=== PATIENT | female | born 1990 | race Caucasian/White ===

== ENCOUNTER 2021-12-10 08:15 | Outpatient (CLI) | payer MEDICARE, SELFPAY ==
--- NOTE | 2021-12-10 08:15 | CRLHL7_ITS ---
For Patients: As a result of the Century Cures Act, medical imaging exams and procedure reports are released immediately into your electronic medical record. You may view this report before your referring provider. If you have questions, please contact your health care provider. INDICATION: Globus sensation. TECHNIQUE: Modified barium swallow COMPARISON: None FINDINGS/IMPRESSION: No episodes of penetration or aspiration. No significant findings. Please see speech pathologist`s report for details. Fluoroscopy time is 1 minutes 16 seconds. Dictated by Cirilo Hancock MD @ 12/10/2021 9:03:51 AM (Electronically Signed)
== END 2021-12-10 08:16 | disposition home or self-care (01) ==
PROVIDERS: Visit Provider Physician Assistant
DX: R13.12 Dysphagia, oropharyngeal phase (principal); R09.89 Other specified symptoms and signs involving the circulatory and respiratory systems
CPT/HCPCS: 74230; 74240; 92611

== ENCOUNTER 2022-05-19 12:43 | Outpatient (CLI) | payer MEDICARE, SELFPAY ==
--- NOTE | 2022-05-19 13:00 | CRLHL7_ITS ---
For Patients: As a result of the Century Cures Act, medical imaging exams and procedure reports are released immediately into your electronic medical record. You may view this report before your referring provider. If you have questions, please contact your health care provider. INDICATION: Bilateral radiculopathy. TECHNIQUE: Multiplanar multisequence noncontrast MR images acquired through the lumbar spine. COMPARISON: None. FINDINGS The lumbar lordosis is preserved. Mild leftward lumbar curvature. Vertebral heights maintained. No acute fracture or spondylolisthesis. No concerning T1 hypointense marrow replacing lesions or marrow edema. Intervertebral disc height and signal intensity are preserved. Normal conus terminates at T12-L1. T12-L1 through L3-4: No spinal canal or neural foraminal narrowing. L4-5: Minimal facet arthropathy. No spinal canal or neural foraminal narrowing. L5-S1: Minimal facet arthropathy. No spinal canal or neural foraminal narrowing. IMPRESSION: 1. No spinal canal narrowing, nerve root impingement, or marrow edema. 2. Minimal facet arthropathy in the lower lumbar spine. 3. Mild leftward lumbar curvature. Dictated by Peyman Morin MD @ 05/19/2022 6:10:28 PM (Electronically Signed)
== END 2022-05-19 12:44 | disposition home or self-care (01) ==
LOC: MRI 12:54
PROVIDERS: PCP Family Medicine; Visit Provider Family Medicine
DX: M54.10 Radiculopathy, site unspecified (principal); M54.42 Lumbago with sciatica, left side; M54.41 Lumbago with sciatica, right side
CPT/HCPCS: 72148

== ENCOUNTER 2022-07-20 14:13 | Outpatient (CLI) | payer MEDICARE, SELFPAY ==
--- NOTE | 2022-07-20 14:30 | CRLHL7_ITS ---
For Patients: As a result of the Century Cures Act, medical imaging exams and procedure reports are released immediately into your electronic medical record. You may view this report before your referring provider. If you have questions, please contact your health care provider. INDICATION: Right flank and right lower quadrant pain, hematuria TECHNIQUE: CT abdomen and pelvis without contrast. COMPARISON: None FINDINGS: Lower chest: 1.7 x 1.3 cm masslike density with some surrounding linear atelectasis or scarring in the right middle lobe. There are several smaller surrounding nodules measuring up to 5 mm in size. There is also a pleural-based 1.6 x 1.6 cm nodule in the right middle lobe on image 31 series 2. Liver: Hepatic steatosis. Spleen: Unremarkable. Pancreas: Unremarkable. Gallbladder and bile ducts: Status was cholecystectomy. Adrenal glands: Unremarkable. Kidneys: No kidney or ureteral stones and no hydronephrosis. GI tract: Unremarkable. Appendix is normal. Vascular structures: Unremarkable. Lymph nodes: Unremarkable. Miscellaneous: Unremarkable. No free air or significant free fluid. Pelvic Organs: Unremarkable. Bones: Mild scoliosis. IMPRESSION: No urinary tract stones or hydronephrosis. Normal appendix. Two masslike densities in the right middle lobe with several surrounding smaller nodules. Differential considerations include but are not limited to infection or metastatic disease. Recommend comparison with any prior outside imaging. If there is no prior imaging, recommend complete chest CT for further evaluation. Status post cholecystectomy. Findings discussed with SAM Rondon at 4:23 p.m. on July 20, 2022. Please note that all CT scans at this facility use dose modulation, iterative reconstruction, and/or weight-based dosing when appropriate to reduce radiation dose to as low as reasonably achievable. Dictated by Aurelia Gilbert MD @ 07/20/2022 4:15:10 PM (Electronically Signed)
--- NOTE | 2022-07-20 18:00 | CRLHL7_ITS ---
For Patients: As a result of the Century Cures Act, medical imaging exams and procedure reports are released immediately into your electronic medical record. You may view this report before your referring provider. If you have questions, please contact your health care provider. HISTORY: Lung nodules on CT abdomen and pelvis. TECHNIQUE: CT chest with IV contrast. 75 mL Isovue-370 IV. COMPARISON: CT abdomen and pelvis same day. FINDINGS: Lungs: Central airways are patent. Clustered nodular areas of consolidation in the right middle lobe. 1.8 x 1.6 cm nodular area of consolidation in the anterior inferior right middle lobe. 3 x 1.5 cm area of consolidation in the more superior and lateral right middle lobe. Several subcentimeter nodules in the right middle lobe around the larger areas of nodular consolidation. Minimal atelectasis in the lingula. No pleural effusion or pneumothorax. Mediastinum: Thoracic aorta and main pulmonary artery are normal caliber. No pericardial effusion. Lymph nodes: No lymphadenopathy. Musculoskeletal: Unremarkable. Upper abdomen: Fatty infiltration of the liver. Cholecystectomy. IMPRESSION: 1. Clustered small areas of consolidation and pulmonary nodules in the right middle lobe. Infection or inflammatory process is favored. Malignancy is less likely. Recommend chest CT follow-up in 3 months. 2. No lymphadenopathy in the chest. Please note that all CT scans at this facility use dose modulation, iterative reconstruction, and/or weight-based dosing when appropriate to reduce radiation dose to as low as reasonably achievable. Dictated by Benny Heller MD @ 07/20/2022 8:20:35 PM (Electronically Signed)
== END 2022-07-20 14:14 | disposition home or self-care (01) ==
PROVIDERS: PCP Family Medicine; Visit Provider Student in an Organized Health Care Education/Training Program
DX: R10.31 Right lower quadrant pain (principal); R31.9 Hematuria, unspecified; R91.8 Other nonspecific abnormal finding of lung field
CPT/HCPCS: 71260; 74176; 87086; Q9967

== ENCOUNTER 2022-11-02 14:27 | Outpatient (CLI) | payer MEDICARE, SELFPAY ==
--- NOTE | 2022-11-02 15:00 | CRLHL7_ITS ---
For Patients: As a result of the Century Cures Act, medical imaging exams and procedure reports are released immediately into your electronic medical record. You may view this report before your referring provider. If you have questions, please contact your health care provider. INDICATION: Follow up pulmonary infiltrates and nodules. TECHNIQUE: Contrast enhanced chest CT. 75 cc nonionic Isovue-370 administered. COMPARISON : July 20, 2022. FINDINGS: 1.6 x 2.9 cm focus of subpleural consolidation or infiltrate within the anterior inferior right middle lobe of the lung larger when compared to the prior study when it measured 1.6 x 1.8 cm. Cephalad to this also in the right middle lobe of lung is a smaller area of consolidation or infiltrate measuring 1.4 x 1.4 cm previously measuring 3 x 1.5 cm. This is surrounded by small pulmonary nodules. This is more likely infectious or inflammatory in nature and is slightly smaller. Clear left lung. No pleural or pericardial effusions. No thoracic lymphadenopathy. No central pulmonary emboli. The included thyroid gland, trachea and mainstem bronchi, thoracic aorta, and included breasts are within normal limits. Hepatic fatty infiltration. Normal adrenal glands. No splenomegaly. Surgically absent gallbladder. Mild thoracolumbar scoliotic curvature. IMPRESSION: 1. Small interval increase in a sub pleural focus of consolidation or infiltrate anterior inferior right middle lobe of the lung measuring up to 2.9 cm previously 1.8 cm. Consider PET/CT scan for further evaluation. 2. Stable to smaller focus of infiltrate or consolidation in right middle lobe measuring 1.4 cm previously up to 3 cm. 3. Surgically absent gallbladder. Please note that all CT scans at this facility use dose modulation, iterative reconstruction, and/or weight-based dosing when appropriate to reduce radiation dose to as low as reasonably achievable. Dictated by Harpreet Day MD @ 11/02/2022 4:57:50 PM (Electronically Signed)
== END 2022-11-02 14:28 | disposition home or self-care (01) ==
PROVIDERS: PCP Family Medicine; Visit Provider Family Medicine
DX: R91.8 Other nonspecific abnormal finding of lung field (principal); R93.89 Abnormal findings on diagnostic imaging of other specified body structures
CPT/HCPCS: 71260; Q9967

== ENCOUNTER 2022-11-08 18:34 | Emergency (ER) | payer MEDICARE, SELFPAY ==
[2022-11-08 18:48] VITALS: BP 161/106; PULSE 105; RESP 20; TEMP 37.3; O2SAT 98; BMI 28.3
--- NOTE | 2022-11-08 19:14 | ED.GENADULT ---
HPI - General Adult General Chief complaint: Shortness of Breath/Dyspnea Stated complaint: trouble breathing Time Seen by Provider: 11/08/22 18:56 History of Present Illness HPI narrative: Has been having difficulties breathing for the last week. Feels like she has not been able to take in a breath. Does have a mass in her right lung that was discovered three months ago. Had a second CT on Wednesday. Mass has grown bigger. Dr Valle is her primary. Got results this week and they wanted to schedule another scan. 32-year-old woman presenting to the emergency department with concern of difficulty getting a full breath. Sometimes it feels like it is hard to breathe out as well. Does not have a history of reactive airway. Recently diagnosed with some pulmonary nodules requiring reimaging. This was an incidental finding in July but. Reimaging has just occurred and known review of records looks to have expanded a little bit. Favoring infectious or inflammatory. She does not have any fever. Vitals look good other than is tachycardic and mildly hypertensive. Tachycardia has been present for quite some time looking back on record. I observed her to be yawning regularly. She is not having any headaches. No nausea. Was contacted today by primary about results of imaging done last week. This was an IV contrasted CT of the chest. No evidence of pulmonary embolus at that time. She does admit that the symptoms not getting enough air was present for a couple of days prior to this latest imaging. Mom is present also. Further questioning by her reveals that Liv is actually able to sleep all right without these symptoms which bring her here today. Aided in this visit by rehabilitation counsellor Related Data Home Medications Medication Instructions Recorded Confirmed No Known Home Medications 07/21/22 07/21/22 Allergies Allergy/AdvReac Type Severity Reaction Status Date / Time Penicillins Allergy Mild Rash Verified 11/08/22 18:59 sulfamethoxazole Allergy Mild Rash Verified 11/08/22 18:59 [From Sulfamethoxazole-Trimethoprim] trimethoprim Allergy Mild Rash Verified 11/08/22 18:59 [From Sulfamethoxazole-Trimethoprim] latex Allergy Unknown uncertain, Verified 11/08/22 18:59 had a reaction to a balloon once, not since Review of Systems Status of ROS: Reports: 6 or more systems reviewed and unremarkable except as noted in History and below [facility] Medical History Hx of hematuria ?Z87.448 - Personal history of other diseases of urinary system (ICD-10) Scoliosis of lumbar spine ?M41.9 - Scoliosis, unspecified (ICD-10) Positive PAU (antinuclear antibody) ?R76.8 - Other specified abnormal immunological findings in serum (ICD-10) Polycystic ovary syndrome ?E28.2 - Polycystic ovarian syndrome (ICD-10) History of fatty infiltration of liver ?Z87.19 - Personal history of other diseases of the digestive system (ICD-10) Environmental allergies ?Z91.09 - Other allergy status, other than to drugs and biological substances (ICD-10) Essential hypertension ?I10 - Essential (primary) hypertension (ICD-10) Hearing impaired ?H91.90 - Unspecified hearing loss, unspecified ear (ICD-10) Hyperlipidemia ?E78.5 - Hyperlipidemia, unspecified (ICD-10) Asthma ?J45.909 - Unspecified asthma, uncomplicated (ICD-10) Depression ?F32.A - Depression, unspecified (ICD-10) History of delivery, currently ?O09.899 - Supervision of other high risk pregnancies, unspecified trimester (ICD-10) Surgical History Hx of cystoscopy ?Z98.890 - Other specified postprocedural states (ICD-10) History of colposcopy ?Z98.890 - Other specified postprocedural states (ICD-10) Hx of cholecystectomy ?Z90.49 - Acquired absence of other specified parts of digestive tract (ICD-10) History of bunionectomy ?Z98.890 - Other specified postprocedural states (ICD-10) Hx of hernia repair ?Z98.890 - Other specified postprocedural states (ICD-10) ?Z87.19 - Personal history of other diseases of the digestive system (ICD-10) Family History Other Cancer High blood pressure Multiple sclerosis Social History Smoking Status: Never smoker Non-prescribed substance use: denies use Exam Narrative: Exam Narrative: Pleasant. NAD. In no respiratory distress. Lungs sound to be clear. Partly rated to maybe confused effort/discoordinated effort at a little difficult to get good breath sounds for auscultation. Oropharynx is moist and symmetrical posteriorly. She is not particularly erythematous. There is the smell of cigarette smoke in the room but I believe that is because of mother. Heart in elevated rate but in a regular rhythm. Extremities are well perfused without apparent edema. Periodically and regularly will yawn. Const: Vital Signs, click to edit/add: Vital Signs - 24 hr 11/08/22 18:48 Temperature 99.2 F Pulse Rate [Pulse Oximeter] 105 H Respiratory Rate 20 Blood Pressure [Ri ght Upper Arm] 161/106 H Pulse Oximetry 98 Oxygen Delivery Me thod Room Air Course Vital Signs Vital signs: Initial Vital Signs Temperature 99.2 F 11/08/22 18:48 Temperature Source Temporal Artery Scan 11/08/22 18:48 Pulse Rate 105 H 11/08/22 18:48 Respiratory Rate 20 11/08/22 18:48 Blood Pressure 161/106 H 11/08/22 18:48 Blood Pressure Mean 124 H 11/08/22 18:48 Blood Pressure Position Sitting 11/08/22 18:48 Pulse Oximetry 98 11/08/22 18:48 Oxygen Delivery Method Room Air 11/08/22 18:48 Vital Signs Temperature 99.2 F 11/08/22 18:48 Pulse Rate 105 H 11/08/22 18:48 Respiratory Rate 20 11/08/22 18:48 Blood Pressure 161/106 H 11/08/22 18:48 Pulse Oximetry 98 11/08/22 18:48 Oxygen Delivery Method Room Air 11/08/22 18:48 Temperature 99.2 F 11/08/22 18:48 Pulse Rate 105 H 11/08/22 18:48 Respiratory Rate 20 11/08/22 18:48 Blood Pressure 161/106 H 11/08/22 18:48 Pulse Oximetry 98 11/08/22 18:48 Oxygen Delivery Method Room Air 11/08/22 18:48 Medical Decision Making MDM Narrative Medical decision making narrative: Other than the symptoms them not sure that there is anything new here. Does not appear to be any distress. Tachycardia has been persistent for some time. Name suspecting more of an air hunger situation of unclear trigger. Mom seems to indicate there is some stress trigger. I do not think there is a secondary pneumonia at the moment outside of these primary nodules. Was could be some head lesion as well though no other symptoms to suggest. Trialed a DuoNeb. This made her jittery but did not affect symptoms. Subsequently given 1 tablet of lorazepam. [place] more relaxed yet still with these symptoms. Watching Liv during our conversation it does almost seem more like a tic/psychogenic air hunger. I did call to primary to discuss. Plan is to discuss with Radiology best next test possibly including biopsy. PET scans look to have been recommended by Radiology as well. I think is safe for departure. See patient discharge plan Medical Records Medical records reviewed: Yes I reviewed the patient's medical records Discharge Plan Discharge Clinical Impression: Pulmonary nodules, Psychogenic air hunger Patient Disposition: Home w/ Parent or Adult Condition: Stable Additional Instructions: Return for increasing and persistent shortness of breath, persistent chest pain, fever. I am relieved to hear that you do not feel this way when you are sleeping apparently. I would expect to hear from Dr. Valle regarding next steps in evaluation. I think we can do the next imaging studies that you might need but I think you might benefit from a visit with pulmonology. You might limit exposures to new scents as you were describing but it's hard for me to say that is necessarily related. Prescriptions: No Action No Known Home Medications Follow Up/Referrals: Yanick Valle MD [Primary Care Provider] - Stand Alone Forms: [facility] Info Instructions
[2022-11-08] MEDS: IPRAT-ALBUT 0.5-2.5 MG/3 ML NEB 1 NEB IH (20:08)
[2022-11-08] MEDS: LORazepam 1 MG TABLET PO (20:31)
== END 2022-11-08 21:38 | disposition home or self-care (01) ==
PROVIDERS: Emergency Provider Family Medicine; PCP Family Medicine
DX: R91.1 Solitary pulmonary nodule (principal); F45.8 Other somatoform disorders
CPT/HCPCS: 94640; 99283; 99284; A9270

== ENCOUNTER 2022-12-31 14:32 | Outpatient (CLI) | payer MEDICARE, SELFPAY ==
--- NOTE | 2022-12-31 14:45 | CRLHL7_ITS ---
For Patients: As a result of the Century Cures Act, medical imaging exams and procedure reports are released immediately into your electronic medical record. You may view this report before your referring provider. If you have questions, please contact your health care provider. INDICATION: Pulmonary nodules TECHNIQUE: Following IV injection of FDG with uptake of 55 minutes, noncontrast CT scan followed by a PET scan were acquired along the length of body from the head to the upper thighs. Noncontrast CT was used for anatomic localization and photon attenuation correction of the PET-CT scan. - Blood glucose level: 83. - FDG dose (mCi): 12.38 . COMPARISON: CT chest dated 11/02/2022 and 07/20/2022. FINDINGS: Head/Neck: No abnormal radiotracer uptake. - Chest: Background mediastinal blood pool with SUV mean of 2.0. There are several moderately to markedly hypermetabolic masslike opacities/clustered nodules in the right middle lobe, for example (image 102) SUV max 7.0. A 2nd masslike opacity in the right middle lobe (image 109) measures SUV max 5.6. Xfbz-iz-lhyslrxuuk hypermetabolic subcarinal lymph node (image 91) SUV max 3.4. No hypermetabolic hilar lymphadenopathy. - Background liver parenchyma with SUV mean of 2.9. No abnormal radiotracer uptake. - Musculoskeletal: No abnormal radiotracer uptake. - CT findings: Cholecystectomy. Hepatic steatosis. IMPRESSION : 1. Moderately to markedly hypermetabolic clustered nodules and masslike consolidation in the right middle lobe. Differential remains infection versus malignancy. Although infection is statistically more likely in a patient of this age, malignancy cannot be excluded. 2. Mild to moderate uptake within a subcarinal lymph node. 3. No hypermetabolic lesions below the diaphragm. Dictated by Dinesh Richter MD @ 01/10/2023 6:39:41 AM (Electronically Signed)
== END 2022-12-31 14:33 | disposition home or self-care (01) ==
PROVIDERS: PCP Family Medicine; Visit Provider Internal Medicine Pulmonary Disease
DX: R09.89 Other specified symptoms and signs involving the circulatory and respiratory systems (principal); R91.8 Other nonspecific abnormal finding of lung field
CPT/HCPCS: 78815; A9552

== ENCOUNTER 2023-01-21 10:25 | Outpatient (CLI) | payer MEDICARE, SELFPAY ==
--- OUTSIDE RECORDS SUMMARY | 2023-01-21 10:28 | XMS_ITS | Continuity of Care Document ---
Author Name Unknown Organization [facility] Address [address] [place] [address] Phone Care Team Providers Care Sheet Music Salesperson Name Role Phone Evangelina Cedillo Unavailable Unavailable Advance Directives Directive Yes / No Effective Date File Name No Information Encounters Encounter Description Practice Location Reason(s) For Visit Diagnoses Date Provider Providers Copied on Encounter [facility], [address], [place], [place], [id number], [place] tel:[phone] [facility] - [facility] [place] No Information Isaias Hutchinson. [facility], [address] [place] [address], [place], [place], [id number], [place]. tel:[phone] Referring Provider: Sergio Her, [address], [place], [address]. tel:[phone] Family History Family Member Type Diagnosis Age At Onset No Information Payers Payer name Insurance type Covered green party ID Authoriza tion(s) No Information Social History Type Description Quantity Date Captured Comments Sex Female Smoking Status No Information Chief Complaint And Reason For Visit No Information Reason For Referral Reason For Referral No Information History Of Present Illness Encounter Date Complaint History Of Prese nt Illness No Information Functional Status Date Functional Assessmen t No Information Instructions Date Instruction Additional Infor mation No Information Assessments Type Assessment Date No Information Patient Care Teams Name Effective Dates (start - stop) Status Members No Information
== END 2023-01-21 10:26 | disposition home or self-care (01) ==
LOC: NFLDREF 10:27
PROVIDERS: PCP Family Medicine; Visit Provider Family Medicine
DX: R32 Unspecified urinary incontinence (principal)
CPT/HCPCS: 87086

== ENCOUNTER 2023-03-31 10:55 | Outpatient (REF) | payer MEDICARE, SELFPAY ==
--- OUTSIDE RECORDS SUMMARY | 2023-03-31 10:58 | XMS_ITS | Continuity of Care Document ---
Author Name Unknown Organization [facility] Address [address] [place] [address] Phone Care Team Providers Care Baseball Coach Name Role Phone Evangelina Cedillo Unavailable Unavailable Advance Directives Directive Yes / No Effective Date File Name No Information Encounters Encounter Description Practice Location Reason(s) For Visit Diagnoses Date Provider Providers Copied on Encounter [facility], [address], [place], [place], [id number], [place] tel:[phone] [facility] - [facility] [place] No Information Isaias Hutchinson. [facility], [address] [place] [address], [place], [place], [id number], [place]. tel:[phone] Referring Provider: Sergio Her, [address], [place], [address]. tel:[phone] Family History Family Member Type Diagnosis Age At Onset No Information Payers Payer name Insurance type Covered republican ID Authoriza tion(s) No Information Social History [...]
[2023-04-02 01:44] LABS: Anti-Nuclear Ab(ANA)IgG ELISA None Detected (None Detected)
[2023-04-02 02:38] LABS: Rheumatoid Factor <10 IU/mL (0-14)
[2023-04-02 15:51] LABS: Complement Component 3 178 mg/dL (90-180); Complement Component 4 36 mg/dL (10-40)
[2023-04-03 19:54] LABS: ANCA IFA Pattern None Detected (None Detected); ANCA IFA Titer <1:20 (<1:20); Myeloperoxidase (MPO) Ab, IgG 2 AU/mL (0-19); Serine Proteinase 3 Ab IgG 1 AU/mL (0-19)
== END 2023-03-31 10:56 | disposition home or self-care (01) ==
LOC: NPINS 10:55
PROVIDERS: PCP Family Medicine
DX: L95.9 Vasculitis limited to the skin, unspecified (principal); Z86.32 Personal history of gestational diabetes; E28.2 Polycystic ovarian syndrome; R76.8 Other specified abnormal immunological findings in serum; I10 Essential (primary) hypertension; E78.5 Hyperlipidemia, unspecified; F32.A Depression, unspecified; R32 Unspecified urinary incontinence; R93.89 Abnormal findings on diagnostic imaging of other specified body structures; H91.93 Unspecified hearing loss, bilateral
CPT/HCPCS: 82595; 83036; 83516; 86039; 86160; 86255; 86431; 86777; 86778

== ENCOUNTER 2023-04-13 14:06 | Emergency (ER) | payer MEDICARE, SELFPAY ==
[2023-04-13 14:35] VITALS: BP 151/95; PULSE 110; RESP 19; TEMP 37.1; O2SAT 97; BMI 29.2
--- NOTE | 2023-04-13 15:13 | ED.NURSE ---
Using Z5 there was no answer for 9 plus minutes so Ipad from registration was tried using a different jo who did have an bilingual interpreter. In-patient bilingual interpreter contacted and here on site.
--- NOTE | 2023-04-13 15:41 | CRLHL7_ITS ---
For Patients: As a result of the Century Cures Act, medical imaging exams and procedure reports are released immediately into your electronic medical record. You may view this report before your referring provider. If you have questions, please contact your health care provider. INDICATION: Modgkxjth-br-lbuqzk. TECHNIQUE: Chest 2 views. COMPARISON: None. FINDINGS: Lungs: Normal lung volume. No consolidation. The tracheobronchial tree and hilar structures are unremarkable. Pleura: No pleural effusion or pneumothorax. Heart and Mediastinum: Normal heart size. The great vessels of the thorax are unremarkable. Bones: No acute displaced osseous process. IMPRESSION: No consolidation. Dictated by Roderick Klein MD @ 04/13/2023 4:50:06 PM (Electronically Signed)
--- OUTSIDE RECORDS SUMMARY | 2023-04-13 15:42 | XMS_ITS | Continuity of Care Document ---
Author Name Unknown Organization [facility] Address [address] [place] [address] Phone Care Team Providers Care Principal Data Architect Name Role Phone Evangelina Cedillo Unavailable Unavailable Advance Directives Directive Yes / No Effective Date File Name No Information Encounters Encounter Description Practice Location Reason(s) For Visit Diagnoses Date Provider Providers Copied on Encounter [facility], [address], [place], [place], [id number], [place] tel:[phone] [facility] - [facility] Specialty [place] No Information Isaias Hutchinson. [facility], [address] [place] [address], [place], [place], [id number], [place]. tel:[phone] Referring Provider: Sergio Her, [address], [place], [address]. tel:[phone] Family History Family Member Type Diagnosis Age At Onset No Information Payers Payer name Insurance type Covered alliance party ID Authoriza tion(s) No Information Social [...]
--- NOTE | 2023-04-13 15:59 | ED.GENADULT ---
HPI - General Adult General Chief complaint: Shortness of Breath/Dyspnea Stated complaint: Chest pain Time Seen by Provider: 04/13/23 15:29 Source: patient Mode of arrival: ambulatory Limitations: no limitations History of Present Illness HPI narrative: 32-year-old female coming in today complaining of shortness of breath. Patient states she has felt short of breath for about 6 months. She states that she had a lung mass that was found, biopsy was recently done and according to the patient, was inconclusive. Therefore a workup is still underway. She states that today, her shortness of breath was different because she also felt a burning sensation over the right lateral chest. Nothing makes it better or worse. She denies any rashes. No fevers or chills. She is not coughing. She does have a pressure in the central chest which also comes and goes with her shortness of breath and is not new. She denies any trauma to the chest. No recent traveling. Related Data Home Medications Medication Instructions Recorded Confirmed No Known Home Medications 07/21/22 01/21/23 Allergies Allergy/AdvReac Type Severity Reaction Status Date / Time Penicillins Allergy Mild Rash Verified 01/21/23 10:01 sulfamethoxazole Allergy Mild Rash Verified 01/21/23 10:01 [From Sulfamethoxazole-Trimethoprim] trimethoprim Allergy Mild Rash Verified 01/21/23 10:01 [From Sulfamethoxazole-Trimethoprim] latex Allergy Unknown uncertain, Verified 01/21/23 10:01 had a reaction to a balloon once, not since Review of Systems Status of ROS: Reports: 10 or more systems reviewed and unremarkable except as noted in History and below [facility] Medical History Hx of hematuria ?Z87.448 - Personal history of other diseases of urinary system (ICD-10) Scoliosis of lumbar spine ?M41.9 - Scoliosis, unspecified (ICD-10) Positive PAU (antinuclear antibody) ?R76.8 - Other specified abnormal immunological findings in serum (ICD-10) Polycystic ovary syndrome ?E28.2 - Polycystic ovarian syndrome (ICD-10) History of fatty infiltration of liver ?Z87.19 - Personal history of other diseases of the digestive system (ICD-10) Environmental allergies ?Z91.09 - Other allergy status, other than to drugs and biological substances (ICD-10) Essential hypertension ?I10 - Essential (primary) hypertension (ICD-10) Hearing impaired ?H91.90 - Unspecified hearing loss, unspecified ear (ICD-10) Hyperlipidemia ?E78.5 - Hyperlipidemia, unspecified (ICD-10) Asthma ?J45.909 - Unspecified asthma, uncomplicated (ICD-10) Depression ?F32.A - Depression, unspecified (ICD-10) History of delivery, currently ?O09.899 - Supervision of other high risk pregnancies, unspecified trimester (ICD-10) Surgical History Hx of cystoscopy ?Z98.890 - Other specified postprocedural states (ICD-10) History of colposcopy ?Z98.890 - Other specified postprocedural states (ICD-10) Hx of cholecystectomy ?Z90.49 - Acquired absence of other specified parts of digestive tract (ICD-10) History of bunionectomy ?Z98.890 - Other specified postprocedural states (ICD-10) Hx of hernia repair ?Z98.890 - Other specified postprocedural states (ICD-10) ?Z87.19 - Personal history of other diseases of the digestive system (ICD-10) Family History Other Cancer High blood pressure Multiple sclerosis Social History Smoking Status: Never smoker How often do you have a drink containing alcohol: monthly or less How many standard drinks containing alcohol do you have on a typical day: 1 or 2 AUDIT-C Alcohol total score: 1 Non-prescribed substance use: denies use Exam Narrative: Exam Narrative: Well-nourished well-developed patient in no acute distress. Alert and oriented. Answers questions appropriately. Mood and affect are appropriate. Patient is hard of hearing and speaks through an telephone cleaner. HEENT: Normocephalic atraumatic. Pupils are equally round reactive to light. Extraocular muscles are intact. Conjunctivae are moist without any icterus noted. Moist mucous membranes. Posterior pharynx is normal. Neck is soft without any lymphadenopathy or thyromegaly. No masses are appreciated. Cardiovascular: Heart is regular rate and rhythm S1 and S2 are present without any murmurs. Lungs: Clear to auscultation bilaterally no wheezes rhonchi or rales are appreciated. Patient takes deep breaths without any discomfort. I cannot reproduce her chest discomfort. Abdomen: Soft and nontender nondistended with normal bowel sounds. No guarding or rebound. Extremities: Bilateral lower extremities are without edema. Normal DP and PT pulses. Skin: Well perfused without any obvious rashes. No rashes visualized on the chest wall. Const: Vital Signs, click to edit/add: Vital Signs - 24 hr 04/13/23 14:35 Temperature 98.8 F Pulse Rate [Pulse Oximeter] 110 H Respiratory Rate 19 Blood Pressure [Ri ght Upper Arm] 151/95 H Pulse Oximetry 97 Oxygen Delivery Me thod Room Air Course Course ED Course: Given that the symptoms are not new, did have a discussion about how she wanted to proceed. She has had workup for the shortness of breath in the past. Patient states that the burning sensation is new so she would like a full workup again today. Therefore we proceeded with an EKG, read by me, shows normal sinus rhythm with a pulse of 99. At this time, CBC, troponin, CRP, chest x-ray are pending. Of note, patient was slightly diet cardiac upon arrival however her pulse quickly went back to normal after she rested for a minute. However given the fact that she is having chest discomfort, shortness of breath and she is tachycardic today upon presentation, we will also draw D-dimer. Care transferred to oncoming physician at this time. Vital Signs Vital signs: Initial Vital Signs Temperature 98.8 F 04/13/23 14:35 Temperature Source Temporal Artery Scan 04/13/23 14:35 Pulse Rate 110 H 04/13/23 14:35 Respiratory Rate 19 04/13/23 14:35 Blood Pressure 151/95 H 04/13/23 14:35 Blood Pressure Mean 113 H 04/13/23 14:35 Pulse Oximetry 97 04/13/23 14:35 Oxygen Delivery Method Room Air 04/13/23 14:35 Vital Signs Temperature 98.8 F 04/13/23 14:35 Pulse Rate 110 H 04/13/23 14:35 Respiratory Rate 19 04/13/23 14:35 Blood Pressure 151/95 H 04/13/23 14:35 Pulse Oximetry 97 04/13/23 14:35 Oxygen Delivery Method Room Air 04/13/23 14:35 Temperature 98.8 F 04/13/23 14:35 Pulse Rate 110 H 04/13/23 14:35 Respiratory Rate 19 04/13/23 14:35 Blood Pressure 151/95 H 04/13/23 14:35 Pulse Oximetry 97 04/13/23 14:35 Oxygen Delivery Method Room Air 04/13/23 14:35 Discharge Plan Discharge Clinical Impression: Chronic shortness of breath Patient Disposition: Home, Self-Care Condition: Stable Prescriptions: No Action No Known Home Medications Follow Up/Referrals: Yanick Valle MD [Primary Care Provider] - Stand Alone Forms: MyHealth Info Instructions
[2023-04-13 16:13] LABS: Basophils Absolute Auto 0.02 K/uL (0.00-0.30); Basophils Percent Auto 0.2 % (0.0-3.0); Eosinophils Absolute Auto 0.21 K/uL (0.00-0.50); Eosinophils Percent Auto 2.1 % (0.0-7.0); Hematocrit 40.6 % (33.0-51.0); Hemoglobin* 13.8 gm/dL (12.0-16.0); Immature Granulocytes Abs Auto 0.01 K/uL (0.00-0.30); Immature Granulocytes Pct Auto 0.1 %; Lymphocytes Absolute Auto 3.32 K/uL (0.90-2.90); Lymphocytes Percent Auto 33.1 % (20-44); Mean Corpuscular HGB Conc 34 gm/dL (32-36); Mean Corpuscular Hemoglobin 31 pg (26-34); Mean Corpuscular Volume 90 fL (80-100); Monocytes Percent Auto 6.4 % (0.0-11.0); Neutrophils Absolute Auto 5.83 K/uL (1.7-7.0); Neutrophils Percent Auto 58.1 % (42.0-72.0); Platelet Count* 345 K/uL (140-440); RDW Coefficient of Variation % 12.1 % (11.5-15.5); Red Blood Count 4.49 m/uL (4.00-5.20); Slide Review Reflex No; White Blood Count* 10.03 K/uL (4.50-11.00)
[2023-04-13 16:31] LABS: Chloride* 102 mmol/L (96-114)
[2023-04-13 16:32] LABS: Potassium* 3.9 mmol/L (3.6-5.1); Sodium* 142 mmol/L (135-149)
[2023-04-13 16:34] LABS: Creatinine* 0.6 mg/dL (0.5-1.5); Est. Creatinine Clearance* 114.09; Estimated Glomerular Filt Rate 121 ml/min
[2023-04-13 16:35] LABS: Anion Gap 11 mEq/L (7-15); Blood Urea Nitrogen* 17 mg/dL (5-24); Carbon Dioxide* 29 mmol/L (20-32); Glucose* 143 mg/dL (60-115)
[2023-04-13 16:47] LABS: D Dimer Quantitative* < 0.27 ug/ml (0.00-0.50)
[2023-04-13] MEDS: dexAMETHasone 10 MG/ML inj PO (18:43)
== END 2023-04-13 18:46 | disposition home or self-care (01) ==
PROVIDERS: Emergency Provider Family Medicine; PCP Family Medicine
DX: R06.02 Shortness of breath (principal)
CPT/HCPCS: 36415; 71046; 80048; 84484; 85025; 85379; 86140; 93005; 99284; J1100

== ENCOUNTER 2023-05-28 16:25 | Outpatient (REF) | payer MEDICARE, SELFPAY ==
--- OUTSIDE RECORDS SUMMARY | 2023-05-28 16:41 | XMS_ITS | Encounter Summary ---
Author Name Unknown Organization [facility] Address [address] [place] [address] Phone Care Team Providers Care Utility Tech Name Role Phone Brinda Cordero MD Primary Care Provider [phone] Reason for Visit * Reason Onset Date Comments Med Refill 04/28/2023 Encounter Details Date Type Department Care Team Description 04/28/2023 [facility] [address] [place], [place] [id number] Martha Stout RN Social History Tobacco Use Types Packs/Day Years Used Date Smoking Tobacco: Never Passive Smoke Exposure: Never Smokeless Tobacco: Never Alcohol Use Standard Drinks/Week Comments Yes 0 (1 standard drink = 0.6 oz pur e alcohol) Occasional Sex and Gender Information Value Date Recorded Sex Assigned at Not on file Gender Identity Not on file Sexual Orientation Not on file documented as of this encounter Miscellaneous Notes * Telephone Encounter - Martha Stout RN - 04/28/2023 10:18 AM CST Liv wants her labs to go to [facility]. They will be done 2 weeks after have started itraconazole. Liv will call after 3 weeks and let me know if she has any resolution in her symptoms with the itraconazole. documented in this encounter Plan of Treatment Not on file documented as of this encounter Visit Diagnoses Not on filedocumented in this encounter Care Teams Utility Tech Relationship Specialty Start Date End Date Brinda Cordero MD [facility] [place] [address] PCP - General Family Medicine 03/16/23 documented as of this encounter
--- OUTSIDE RECORDS SUMMARY | 2023-05-28 16:41 | XMS_ITS | Encounter Summary ---
Author Name Unknown Organization [facility] Address [address] [place] [address] Phone Care Team Providers Care Aviation Electrical Technician Name Role Phone Brinda Crodero MD Primary Care Provider [phone] Encounter Details Date Type Department Care Team Description 05/13/2023 Telephone [facility] [address] [place], [place] [id number] Martha Stout RN Social History Tobacco Use [...] Telephone Encounter - Martha Stout RN - 05/13/2023 3:59 PM CST Talking to Liv through sign language interieur and there must have been some misinformation given. I was originally told she had emisis but now I am told she has no nausea or vomiting. Melanie was going to try zofran. Liv states that what she has is pressure on her chest that started about 2 days ago. Denies SOB, fever, chills or any other symptoms. Instructed to continue with meds and Dr Navarro is gone and I would talk to him tomorrow. documented in this encounter Plan of Treatment Not on file documented as of this encounter Visit Diagnoses Not on filedocumented in this encounter Care Teams Aviation Electrical Technician Relationship Specialty Start Date End Date Brinda Cordero MD [address] [place] [address] PCP - General Family Medicine 03/16/23 documented as of this encounter
--- OUTSIDE RECORDS SUMMARY | 2023-05-28 16:41 | XMS_ITS | Clinical Summary ---
Author Name Unknown Organization [facility]i Address [address] [place] [address] Phone Care Team Providers Care Writer Technical Publications Name Role Phone Brinda Cordero MD Primary Care Provider Allergies Active Allergy Reactions Criticality Noted Date Comments Latex Itching 01/04/2008 Pt reports a little tightness with breathing and itching Penicillins Hives 01/04/2008 Sulfamethoxazole-Trimethopr im 06/04/2008 Medications Medication Sig Dispensed Refills Start Date End Date Status itraconazole (SPORANOX) 100 MG capsule Take 2 capsules (200 mg total) by mouth in the morning and 2 capsules (200 mg total) in the evening. 120 capsule 0 04/30/2023 05/30/2023 Active Active Problems Problem Noted Date Diagnosed Date Gastritis 03/15/2023 H/O: premature delivery 04/24/2021 Overview: PTB x2 Gestational diabetes mellitus 04/23/2021 Essential hypertension 08/28/2019 Scoliosis of lumbar spine 12/16/2017 Back pain 12/16/2017 Fatty liver 01/13/2017 Overview: noted on ULTRASOUND 12/2016 Neck pain 12/24/2016 Occipital headache 07/14/2016 Elevated erythrocyte sedimentation rate 07/14/19 17 Polycystic ovary syndrome 09/30/2015 Hematuria 06/06/2014 Overview: Renal ULTRASOUND normal CT scan normal Cysto normal. 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 Environmental allergy 07/04/2012 Sensorineural hearing loss, bilateral 11/21/2009 Encounters Date Type Department Care Team Description 05/20/2023 Telephone [facility] [address] [place] [address] Martha Stout, CHANDLER Labs Only 05/14/2023 Telephone [facility] [address] [place] [address] Martha Stout, CHANDLER 05/13/2023 Telephone [facility] [address] [place] [address] Martha Stout, CHANDLER 05/13/2023 Telephone [facility] [address] [place] [address] Martha Stout, CHANDLER New symptoms 04/28/2023 Refill [facility] [address] [place] [address] Martha Stout, CHANDLER 04/27/2023 11:00 AM MST Office Visit [facility] [address] [place] [address] Dinesh Navarro MD Granulomatous pneumonia (Primary Dx) 04/21/2023 Telephone [facility] [address] [place] [address] Martha Stout, properties supervisor results 04/19/2023 Telephone [facility] [facility] [address] [place] [address] Martha Stout, CHANDLER CT scan or Labs 03/30/2023 Telephone [facility] [address] [place] [address] Martha Stout, CHANDLER Labs Only 03/16/2023 9:20 AM MDT Office Visit [facility] [address] [place] [address] Dinesh Navarro MD Granulomatous pneumonia (Primary Dx) 03/16/2023 Orders Only [facility] [place] [address] [facility] [address] [place] [address] Dinesh Navarro MD from Last 3 Months Immunizations Name Administration Dates Next Due DTP 12/05/1993, 1,1988,1988,1988 HPV 9-Valent 07/13/2012,10/17/2010,08/18/2010 HPV, Quadrivalent 07/13/2012,10/17/2010,08/19/19 11 Hep A, 2 Dose 02/25/2001 Hep B, Adolescent or Pediatric 06/08/2001,2000,09/27/2000 Hepatitis A 09/12/2010 Hepatitis B 06/08/2001,11/10/2000,09/27/2000 Hib (HbOC) 10/05/1990 Influenza TIV (IM) 03/13/2013 Influenza, Injectable, Quadr ivalent, Preservative Free 04/07/2022,08/22/2021,03/17/2019,2017,01/13/2017,01/23/2016,02/28/2015 Influenza, Recombinant, Inj, Preservative Free 01/12/2014 Influenza, Unspecified 01/13/2017,2015,02/28/2015,2013,03/13/2013 MMR 11/17/1999,07/29/1989 OPV 12/05/1993, 1,1988,1988,1988 PPD Test 08/30/2000,10/10/1998 Pfizer Sars-cov-2 Vaccination 04/07/2022 TD Preservative Free 11/17/1999 Td 11/17/1999 Tdap 06/23/2021, 0,05/02/2013,2010 Typhoid Inactivated 02/25/2001 Varicella 08/30/2000 Yellow Fever 02/25/2001 Family History Medical History Relation Comments Alcohol abuse Father Diabetes Father Alcohol abuse Mother Arthritis Mother Asthma Mother COPD Mother Cancer Mother Depression Mother Hypertension Mother Stroke Mother Depression Sister Relation Status Comments Father Mother Sister Social History Tobacco Use Types Packs/Day Years Used Date Smoking Tobacco: Never Passive Smoke Exposure: Never Smokeless Tobacco: Never Tobacco Cessation:Counseling Given: No Alcohol Use Standard Drinks/Week Comments Yes 0 (1 standard drink = 0.6 oz pur e alcohol) Occasional Sex and Gender Information Value Date Recorded Sex Assigned at Not on file Gender Identity Not on file Sexual Orientation Not on file Last Filed Vital Signs Vital Sign Reading Time Taken Comments Blood Pressure 124/84 04/27/2023 11:01 AM HOUSEKEEPING AID Pulse 88 04/27/2023 11:01 AM HOUSEKEEPING AID Temperature 36.4 ??C (97.6 ??F) 04/27/2023 11:[address] Respiratory Rate 16 03/16/2023 9:33 AM CDT Oxygen Saturation 98% 03/16/2023 9:33 AM CDT Inhaled Oxygen Concentration - - Weight 77.3 kg (170 lb 6.4 oz) 04/27/2023 11:01 AM HOUSEKEEPING AID Height 161.3 cm (5' 3.5) 04/27/2023 11:01 AM CS T Body Mass Index 29.71 04/27/2023 11:01 AM HOUSEKEEPING AID Plan of Treatment Health Maintenance Due Date Last Done Comments Pneumococcal PPSV23 Highest Risk Adult (1 of 3 - PCV13) 2007 COVID-19 Vaccine (4 - 2022-2 4 season) 2023 04/07/2022, 02/26/2021, 02/05/2021 Influenza Vaccine (#1) 2023 , 08/22/2021, 03/17/2019, Additional history exists Procedures Procedure Name Priority Date/Time Associated Diagnosis Comments QUANTIFERON - TB GOLD PLUS Routine 03/16/2023 9:35 AM CDT HISTOPLASMA GALACTOMANNAN AG EIA, URINE Routine 03/16/2023 9:35 AM CDT COCCIDIOIDES ANTIBODY ID Routine 03/16/2023 9:35 AM CDT HISTO(PLASMA) ANTIBODY ID Routine 03/16/2023 9:35 AM CDT ANGIOTENSIN-CONVERTING ENZYME (DANNY), SERUM Routine 03/16/2023 9:35 AM CDT MVISTA(R) HISTOPLASMA QN ANTIGEN EIA Routine 03/16/2023 9:35 AM CDT MVISTA?? BLASTOMYCES QUANTITATIVE ANTIGEN, EIA Routine 03/16/2023 9:35 AM CDT C-REACTIVE PROTEIN (CRP), SERUM Routine 03/16/2023 9:35 AM CDT CBC (INCLUDES DIFFERENTIAL/PLATELETS ) Routine 03/16/2023 9:35 AM CDT ERYTHROCYTE SEDIMENTATION RATE (ESR) Routine 03/16/2023 9:35 AM CDT ASPERGILLUS AB BY ID Routine 03/16/2023 9:35 AM CDT BLASTOMYCES ANTIBODY ID Routine 03/16/2023 9:35 AM CDT from Last 3 Months Results * MVISTA(R) HISTOPLASMA QN ANTIGEN EIA (03/16/2023 9:35 AM CDT) Specimen source URINE QUES T - [place] (WDL) Histoplasma capsulatum Ag NONE DETECTED ng/mL [facility] [place] ([facility]) Interpretation NEGATIVE [facility] [place] ([facility]) Comment: Test Parameters: ??Reference Interval: None Detected ??Reportable Range: ?Positive Results reported in ng/mL from 0.20 ng/mL ?to 20.00 ng/mL ?Positive results above 20.00 ng/mL are reported as ?Above the Limit of Quantification Cross-reactions occur with Blastomyces spp., Coccidioides spp., and Paracoccidioides brasiliensis. This test was developed and its performance characteristics determined by [employer]. It has not been cleared or approved by the FDA; however, FDA clearance or approval is not currently required for clinical use. The results are not intended to be used as the sole means for clinical diagnosis or patient management decisions. 03/16/2023 9:35 AM CDT 03/16/2023 9:37 AM CDT Narrative Resulting Agency Comment Performing Organization Information: ?Site ID: [id number] ?Name: [facility] ?Address: [address] [place] [phone] ?Director: Keisha Smith MD,[place]-[facility] Dinesh Navarro MD LAB BLOOD ORDERABLES Performing Organization Address [facility]/ZIP Co de Phone Number [facility] [place] (WDL) * ASPERGILLUS AB BY ID (03/16/2023 9:35 AM CDT) Aspergillus flavus Ab, Serum Negative Negative [facility] [place] ([facility]) Aspergillus niger Ab, Serum Negative Negative [facility] [place] ([facility]) Aspergillus fumigatus Ab, Serum Negative Negative [facility] [place] ([facility]) Comment: Interpretive Criteria: ?Negative: Antibody not detected ?Positive: Antibody detected A positive result is represented by 1 or more precipitin bands, and may indicate fungus ball, allergic bronchopulmonary aspergillosis (LANDRY) or invasive aspergillosis. Generally, the appearance of 3-4 bands indicates either fungus ball or LANDRY. 03/16/2023 9:35 AM CDT 03/16/2023 9:37 AM CDT Narrative Resulting Agency Comment Performing Organization Information: ?Site ID: [id number] ?Name: [facility] Dickinson[facility]ena [facility] ?Address: [address] [place] [address] Dr Dickinson MA ?Director: Akshat Garcia M.D.,PhD Dinesh Navarro MD LAB BLOOD ORDERABLES [facility] (WDL) * Histoplasma Galactomannan Ag EIA, Urine (03/16/2023 9:35 AM CDT) Histoplasma capsulatum Ag, Urine <0.2 ng/mL [facility] [place] ([facility]) Comment: REFERENCE RANGE: <0.2 ng/mL Histoplasma galactomannan is frequently detected in urine from patients with disseminated histoplasmosis. However, a negative result does not exclude a diagnosis of histoplasmosis. Many patients with acute pulmonary disease or chronic cavitary disease do not exhibit antigenuria. Specimens from patients with other endemic fungal infections, such as blastomycosis, paracoccidioidomycosis, or candidiasis, may also be positive in this assay. This test should be used in conjunction with other diagnostics tests, including culture, molecular assays, and histology in making a final diagnosis. 03/16/2023 9:35 AM CDT 03/16/2023 9:37 AM CDT Narrative Resulting Agency Comment Performing Organization Information: ?Site ID: [id number] ?Name: [facility] [facility], ?Address: [address] [place] [phone] ?Director: Jaqueline Whitmore MD,PhD,JAMES Dinesh Navarro MD LAB URINE ORDERABLES Performing Organization Address City/State/[facility] Co de Phone Number [facility] [place] ([facility]) * QuantiFERON - TB Gold Plus (03/16/2023 9:35 AM CDT) [facility] Mycobacterium tuberculosis stimulated gamma interferon, Blood NEGATIVE NEGATIVE [facility] [place] ([facility]) Comment: Negative test result. M. tuberculosis complex infection unlikely. Gamma interferon background, Blood 0.04 IU/mL [facility] [place] ([facility]) Mitogen stimulated gamma interferon corrected for background, Blood >10.00 IU/mL [facility] [place] ([facility]) M TB IGNF bckgrd cor Bld-aCnc <0.00 IU/mL [facility] [place] ([facility]) M TB IFN-g CD4+CD8+ bckgrnd cor Bld-aCnc <0.00 IU/mL [facility] [place] ([facility]) Comment: The Nil tube value reflects the background interferon gamma immune response of the patient's blood sample. This value has been subtracted from the patient's displayed TB and Mitogen results. Lower than expected results with the Mitogen tube prevent false-negative Quantiferon readings by detecting a patient with a potential immune suppressive condition and/or suboptimal pre-analytical specimen handling. The TB1 Antigen tube is coated with the M. tuberculosis-specific antigens designed to elicit responses from TB antigen primed CD4+ helper T-lymphocytes. The TB2 Antigen tube is coated with the M. tuberculosis-specific antigens designed to elicit responses from TB antigen primed CD4+ helper and CD8+ cytotoxic T-lymphocytes. For additional information, please refer to https://education.mimoOn/faq/KRY386 (This link is being provided for informational/ educational purposes only.) 03/16/2023 9:35 AM CDT 03/16/2023 9:37 AM CDT Narrative Resulting Agency Comment Performing Organization Information: ?Site ID: [id number] ?Name: [email or web address] ?Address: [address] [place] [phone] ?Director: Lex Denise Dinesh Navarro MD LAB BLOOD ORDERABLES CHEY Villalba ALINA ([place]) * Angiotensin-converting Enzyme (DANNY), Serum (03/16/2023 9:35 AM CDT) Pathologist [facility] Angiotensin Converting Enzyme (DANNY), Serum/Plasma 37 9 - 67 U/L [facility] ([place]) 03/16/2023 9:35 AM CDT 03/16/2023 9:37 AM CDT Narrative Resulting Agency Comment Performing Organization Information: ?Site ID: [id number] ?Name: [email or web address] [place] ?Address: [address] [place], [place] [address] [place] [address] ?Director: Lex Denise Dinesh Navarro MD LAB BLOOD ORDERABLES CHEY Villalba JOSSYSEGET ([facility]) * [facility]ista?? Blastomyces Quantitative Antigen, EIA (03/16/2023 9:35 AM CDT) Specimen source URINE QUES T - [place] (WDL) Blastomyces dermatitidis Ag, Urine NONE DETECTED ng/mL [facility] [place] ([facility]) Interpretation NEGATIVE [facility] [place] ([facility]) Comment: Test Parameters: ??Reference Interval: None Detected ??Reportable Range: ?? 0.31 ng/mL - 20.00 ng/mL ?Results above 20.00 ng/mL are reported as ?Positive, Above the Limit of Quantification ?? This test was developed and its performance characteristics determined by [employer]. It has not been cleared or approved by the FDA; however, FDA clearance or approval is not currently required for clinical use. The results are not intended to be used as the sole means for clinical diagnosis or patient management decisions. 03/16/2023 9:35 AM CDT 03/16/2023 9:37 AM CDT Narrative Resulting Agency Comment Performing Organization Information: ?Site ID: [id number] ?Name: [facility] ?Address: [address] [place] [phone] ?Director: Keisha Smith MD,[facility] Dinesh Navarro MD LAB BLOOD ORDERABLES [facility] [place] ([facility]) * (ABNORMAL) CBC (includes Differential/Platelets) (03/16/2023 9:35 AM CDT) Leukocytes, Blood 8.6 3.8 - 10.8 Thousand/u L [facility] [place] ([facility]) Erythrocytes (RBC) 4.75 3.80 - 5.10 Million/uL [facility] [place] ([facility]) Hemoglobin (HGB) 14.6 11.7 - 15.5 g/dL [facility] [place] ([facility]) Hematocrit (HCT) 42.7 35.0 - 45.0 % [facility] [place] ([facility]) MCV 89.9 80.0 - 100.0 fL [facility] [place] ([facility]) MCH 30.7 27.0 - 33.0 pg [facility] [place] ([facility]) MCHC 34.2 32.0 - 36.0 g/dL [facility] [place] ([facility]) Erythrocyte Distribution Width (RDW) 12.6 11.0 - 15.0 % [facility] [place] ([facility]) Platelets, Blood 420(H) 140 - 400 Thousand/u L [facility] [place] ([facility]) Platelet mean volume, Blood 9.4 7.5 - 12.5 fL [facility] [place] ([facility]) Neutrophils, Blood 4,472 1,500 - 7,800 cells/uL [facility] [place] ([facility]) Lymphocytes, Blood 3,285 850 - 3,900 cells/uL [facility] [place] ([facility]) Monocytes, Blood 602 200 - 950 cells/uL [facility] [place] ([facility]) Eosinophils, Blood 181 15 - 500 cells/uL [facility] [place] ([facility]) Basophils, Blood 60 0 - 200 cells/uL [facility] [place] ([facility]) Neutrophils/100 leukocytes, Blood 52 % [facility] [place] ([facility]) Lymphocytes/100 leukocytes, Blood 38.2 % [facility] [place] ([facility]) Monocytes/100 leukocytes, Blood 7.0 % [facility] [place] ([facility]) Eosinophils/100 leukocytes, Blood 2.1 % [facility] [place] ([facility]) Basophils/100 leukocytes, Blood 0.7 % [facility] [place] (W[facility]) 03/16/2023 9:35 AM CDT 03/16/2023 9:37 AM CDT Narrative Resulting Agency Comment Performing Organization Information: ?Site ID: [id number] ?Name: [employer] [facility] HighJossy Dent ?Address: [address] [place] [phone] ?Director: Lex Denise Dinesh Navarro MD LAB BLOOD ORDERABLES [facility] De[facility] [place] (WDL) * (ABNORMAL) C-Reactive Protein (CRP), Serum (03/16/2023 9:35 AM CDT) C reactive protein, Serum/Plasma 12.8(H) <8.0 mg/L [facility] [place] (WDL) 03/16/2023 9:35 AM CDT 03/16/2023 9:37 AM CDT Narrative Resulting Agency Comment Performing Organization Information: ?Site ID: [id number] ?Name: [employer] [facility]oss[facility] ?Address: [address] [place] [address] [place] [address] ?Director: Lex Denise Dinesh Navarro MD LAB BLOOD ORDERABLES Performing Organization Address City/[facility]/ZIP Co de Phone Number [facility] [place] (WDL) * Blastomyces Antibody Id (03/16/2023 9:35 AM CDT) Blastomyces dermatitidis Ab, Serum Negative Negative [facility] [place] ([facility]) Comment: Interpretive Criteria: ?Negative: Antibody not detected ?Positive: Antibody detected A positive result is diagnostic of active or recent blastomycosis and is found in approximately 80% of proven cases of blastomycosis. 03/16/2023 9:35 AM CDT 03/16/2023 9:37 AM CDT Narrative Resulting Agency Comment Performing Organization Information: ?Site ID: [id number] ?Name: [facility] ?Address: [address] [place] [address] [place], [place] ?Director: Akshat Garcia M.D.,PhD Dinesh Navarro MD LAB BLOOD ORDERABLES [facility] [place] (WDL) * Coccidioides Antibody ID (03/16/2023 9:35 AM CDT) Coccidioides immitis Ab, Serum NEGATIVE [facility] [place] (WDL) Comment: REFERENCE RANGE: NEGATIVE INTERPRETIVE CRITERIA: ?NEGATIVE: ??Antibody Not Detected ?POSITIVE: ??Antibody Detected The immunodiffusion (ID) procedure correlates both in sensitivity and clinical utility with the CF test. The ID test, which detects IgG directed to the F antigen, becomes positive within 4 weeks after infection and remains positive throughout clinically active disease. It is most useful in confirming the specificity of low CF titers, where lines of identity are formed with reference antisera. Positive ID reactions are diagnostic for coccidioidomycosis and usually indicate active or recent disease and remain detectable for up to 1 year thereafter. 03/16/2023 9:35 AM CDT 03/16/2023 9:37 AM CDT Narrative Resulting Agency Comment Performing Organization Information: ?Site ID: [id number] ?Name: [facility], ?Address: [address] [place] [phone] ?Director: Jaqueline Whitmore MD,PhD,JAMES Dinesh Navarro MD LAB BLOOD ORDERABLES Performing Organization Address [facility] de Phone Number [facility] (WDL) * (ABNORMAL) Erythrocyte Sedimentation Rate (ESR) (03/16/2023 9:35 AM CDT) Erythrocyte sedimentation rate (ESR) 36(H) < OR = 20 mm/h [facility] (WDL) 03/16/2023 9:35 AM CDT 03/16/2023 9:37 AM CDT Narrative Resulting Agency Comment Performing Organization Information: ?Site ID: [id number] ?Name: [facility] ?Address: [address] [place] [phone] ?Director: Lex Denise Dinesh Navarro MD LAB BLOOD ORDERABLES Performing Organization Address [facility] de Phone Number [facility] (WDL) * Histo(Plasma) Antibody ID (03/16/2023 9:35 AM CDT) H capsul M Ab Ser Ql ID NEGATIVE [facility] ([facility]) H capsul H Ab Ser Ql ID NEGATIVE [facility] [place] (W[facility]) Comment: REFERENCE RANGE: M BAND: NEGATIVE ? H BAND: ?? NEGATIVE This immunodiffusion assay is highly specific for Histoplasmosis infection but may have low sensitivity in early infection. Two different immunoprecipitin bands may be detected. The M band develops with acute infection, is often present in chronic infection, and may persist for months to years. The M band may be detected in persons with recent histoplasmin skin testing. The H band, which is usually present with the M band, generally suggests a chronic or severe acute infection. The presence of both the H and M bands is considered conclusive for the diagnosis of histoplasmosis. 03/16/2023 9:35 AM CDT 03/16/2023 9:37 AM CDT Narrative Resulting Agency Comment Performing Organization Information: ?Site ID: [id number] ?Name: [facility], ?Address: [address] [place] [phone] ?Director: Jaqueline Whitmore MD,PhD,JAMES Dinesh Navarro MD LAB BLOOD ORDERABLES [facility] (WDL) from Last 3 Months Care Teams Writer Technical Publications Relationship Specialty Start Date End Date Brinda Cordero MD [address] [place] [address] PCP - General Family Medicine 03/16/23
--- OUTSIDE RECORDS SUMMARY | 2023-05-28 16:41 | XMS_ITS | Encounter Summary ---
Author Name Unknown Organization [facility] Address [address] [place] [address] Phone Care Team Providers Care Web Programmer Name Role Phone Brinda Cordero MD Primary Care Provider [phone] Reason for Visit * Reason Onset Date Comments Labs Only 05/20/2023 Encounter Details Date Type Department Care Team Description 05/20/2023 Telephone [facility] [address] [place], [place] [address] Martha Stout, CHANDLER Labs Only Social History Tobacco Use Types Packs/Day Years [...] Telephone Encounter - Martha Stout RN - 05/20/2023 10:26 AM CST Liv has been on the itraconazole for almost 3 weeks. Orders faxed to [facility] for liver enzymes and itraconazole trough. Liv was instructed to have labs done close to the time she takes her itraconazole and to not take the dose until the labs are drawn. Liv also wanted to let Dr Navarro know that her Rt nostril not as easy to breath through. documented in this encounter Plan of Treatment Not on file documented as of this encounter Visit Diagnoses Not on filedocumented in this encounter Care Teams Web Programmer Relationship Specialty Start Date End Date Brinda Cordero MD [address] [place] [address] PCP - General Family Medicine 03/16/23 documented as of this encounter
--- OUTSIDE RECORDS SUMMARY | 2023-05-28 16:41 | XMS_ITS | Encounter Summary ---
Author Name Unknown Organization [facility] Address [address] [place] [address] Phone Care Team Providers Care Vice President Media Relations Name Role Phone Brinda Cordero MD Primary Care Provider [phone] Reason for Visit * Reason Onset Date Comments New symptoms 05/13/2023 Encounter Details Date Type Department Care Team Description 05/13/[address] [facility] [address] [facility] [address] [place] [address] Martha Stout RN New symptoms Social History Tobacco Use Types Packs/Day Years [...] Encounter - Martha Stout RN - 05/13/2023 12:19 PM CST Liv states that she is feeling worse. Full feeling with nausea and vomiting. Is taking her itraconazole with food. documented in this encounter Plan of Treatment Not on file documented as of this encounter Visit Diagnoses Not on filedocumented in this encounter Care Teams Vice President Media Relations Relationship Specialty Start Date End Date Brinda Cordero MD [address] [place] [address] PCP - General Family Medicine 03/16/23 documented as of this encounter
--- OUTSIDE RECORDS SUMMARY | 2023-05-28 16:41 | XMS_ITS | Encounter Summary ---
Author Name Unknown Organization [facility] Address [address] [place] [address] Phone Care Team Providers Care Speech Therapist Technician Name Role Phone Brinda Cordero MD Primary Care Provider [phone] Encounter Details Date Type Department Care Team Description 05/14/2023 [facility] [address] [facility] [address] [place] [address] Martha Stout RN Social History Tobacco Use [...] Telephone Encounter - Martha Stout RN - 05/14/2023 3:[address] Navarro feels that the chest pressure that she is feeling is d/t the disease rather than the itraconazole. He really feels that we need to stay on the medication for 1 month to see if the itraconazole will be helpful. Liv was notified of the above. documented in this encounter Plan of Treatment Not on file documented as of this encounter Visit Diagnoses Not on filedocumented in this encounter Care Teams Speech Therapist Technician Relationship Specialty Start Date End Date Brinda Cordero MD [address] [place] [id number] PCP - General Family Medicine 03/16/23 documented as of this encounter
--- OUTSIDE RECORDS SUMMARY | 2023-05-28 16:42 | XMS_ITS | Continuity of Care Document ---
Author Name Unknown Organization [facility] Address [address] [place] [address] Phone Care Team Providers Care World Travel Counselor Name Role Phone Evangelina Cedillo Unavailable Unavailable Advance Directives Directive Yes / No Effective Date File Name No Information Encounters Encounter Description Practice Location Reason(s) For Visit Diagnoses Date Provider Providers Copied on Encounter [facility], [address], [place], [place], [id number], [place] tel:[phone] [facility] - [facility] Specialty [place] No Information Isaias Hutchinson. [facility], [address] [place] [address], [place], [place], [id number], [place]. tel:[phone] Referring Provider: Sergio Her, [address], [place], [address]. tel:[phone] Family History Family Member Type Diagnosis Age [...]
--- OUTSIDE RECORDS SUMMARY | 2023-05-28 16:42 | XMS_ITS | Encounter Summary ---
Author Name Unknown Organization [facility] Address [address] [place] [address] Phone Care Team Providers Care Customer Equipment Engineer Name Role Phone Brinda Cordero MD Primary Care Provider [phone] Encounter Details Date Type Department Care Team Description 03/16/2023 Orders Only [facility] [address] [place], [place] [address] Dinesh Navarro MD [address] [facility] [address] [place], [place] [address] Social History Tobacco Use Types Packs/Day Years Used Date Smoking Tobacco: Never Smokeless Tobacco: Never Alcohol Use Standard Drinks/Week Comments Yes 0 (1 standard drink = 0.6 oz pur e alcohol) Occasional Sex and Gender Information Value Date Recorded Sex Assigned at Not on file Gender Identity Not on file Sexual Orientation Not on file documented as of this encounter Plan of Treatment Not on file documented as of this encounter Procedures Procedure Name Priority Date/Time Associated Diagnosis Comments MVISTA(R) HISTOPLASMA QN ANTIGEN EIA Routine 03/16/2023 9:35 AM CDT ASPERGILLUS AB BY ID Routine 03/16/2023 9:35 AM CDT HISTOPLASMA GALACTOMANNAN AG EIA, URINE Routine 03/16/2023 9:35 AM CDT QUANTIFERON - TB GOLD PLUS Routine 03/16/2023 9:35 AM CDT ANGIOTENSIN-CONVERTING ENZYME (DANNY), SERUM Routine 03/16/2023 9:35 AM CDT MVISTA?? BLASTOMYCES QUANTITATIVE ANTIGEN, EIA Routine 03/16/2023 9:35 AM CDT CBC (INCLUDES DIFFERENTIAL/PLATELETS ) Routine 03/16/2023 9:35 AM CDT C-REACTIVE PROTEIN (CRP), SERUM Routine 03/16/2023 9:35 AM CDT BLASTOMYCES ANTIBODY ID Routine 03/16/2023 9:35 AM CDT COCCIDIOIDES ANTIBODY ID Routine 03/16/2023 9:35 AM CDT ERYTHROCYTE SEDIMENTATION RATE (ESR) Routine 03/16/2023 9:35 AM CDT HISTO(PLASMA) ANTIBODY ID Routine 03/16/2023 9:35 AM CDT documented in this encounter Results * QuantiFERON - TB Gold Plus (03/16/2023 9:35 AM CDT) [facility] Mycobacterium tuberculosis stimulated gamma interferon, Blood NEGATIVE [...] T-lymphocytes. For additional information, please refer to https://education.toucanBox/faq/DFO014 (This link is being provided for informational/ educational purposes only.) 03/16/2023 9:35 AM CDT 03/16/2023 9:37 AM CDT Narrative Resulting Agency Comment Performing Organization Information: ?Site ID: [id number] ?Name: [facility] ?Address: [address] [place] [phone] ?Director: Lex Denise Dinesh Navarro MD LAB BLOOD ORDERABLES [facility] ([facility]) * Histoplasma Galactomannan Ag EIA, Urine (03/16/2023 9:35 AM CDT) Pathologist [facility] Histoplasma capsulatum Ag, Urine <0.2 ng/mL [facility] ([facility]) Comment: REFERENCE RANGE: <0.2 ng/mL Histoplasma galactomannan [...] Performing Organization Information: ?Site ID: [id number] ?Name: [place]/[facility], ?Address: [address] [place] [phone] ?Director: Jaqueline Whitmore MD,PhD,JAMES Dinesh Navarro MD LAB URINE ORDERABLES Performing Organization Address [facility] de Phone Number [facility]Y [facility]ULLER ([facility]) * Coccidioides Antibody ID (03/16/2023 9:35 AM CDT) Coccidioides immitis Ab, Serum NEGATIVE CHEY Villalba [facility]OM[facility] ([facility]) Comment: REFERENCE RANGE: NEGATIVE INTERPRETIVE CRITERIA: ?NEGATIVE: [...] Agency Comment Performing Organization Information: ?Site ID: ?Name: [place]/[facility], ?Address: [address] [place] [phone] ?Director: Jaqueline Whitmore MD,PhD,JAMES Dinesh Navarro MD LAB BLOOD ORDERABLES Performing Organization Address [facility] de Phone Number CHEY [facility]ULLER ([facility]) * Histo(Plasma) Antibody ID (03/16/2023 9:35 AM CDT) H capsul M Ab Ser Ql ID NEGATIVE CHEY Villalba JOSSY[facility]OMIE ([facility]) H capsul H Ab Ser Ql ID NEGATIVE [facility] ([facility]) Comment: REFERENCE RANGE: M BAND: NEGATIVE [...] Performing Organization Information: ?Site ID: [id number] ?Name: [place]/[facility], ?Address: [address] [place] [phone] ?Director: Jaqueline Whitmore MD,PhD,JAMES Dinesh Navarro MD LAB BLOOD ORDERABLES Performing Organization Address [facility]/ZIP Co de Phone Number CHEY Deejay JOSSYNAOMIE ([facility]) * Angiotensin-converting Enzyme (DANNY), Serum (03/16/2023 9:35 AM CDT) Angiotensin Converting Enzyme (DANNY), Serum/Plasma 37 9 - 67 U/L [facility] ([facility]) 03/16/2023 9:35 AM CDT 03/16/2023 9:37 AM CDT Narrative Resulting Agency Comment Performing Organization Information: ?Site ID: [id number] ?Name: [facility] ?Address: [address] [place] [phone] ?Director: Lex Denise Dinesh Navarro MD LAB BLOOD ORDERABLES Performing Organization Address City/[facility]/ZIP Co de Phone Number [facility] ([facility]) * MVISTA(R) HISTOPLASMA QN ANTIGEN EIA (03/16/2023 [...] developed and its performance characteristics determined by [employer]. It has not been cleared or approved by the FDA; however, FDA clearance or approval is not currently required for clinical use. The results are not intended to be used as the sole means for clinical diagnosis or patient management decisions. 03/16/2023 9:35 AM CDT 03/16/2023 9:37 AM CDT Narrative Resulting Agency Comment Performing Organization Information: ?Site ID: [id number] ?Name: [employer] ?Address: [address] [place] [phone] ?Director: Keisha Smith MD,[place] D[facility] MD LAB BLOOD ORDERABLES [facility] ([facility]) * MVista?? Blastomyces Quantitative Antigen, EIA (03/16/2023 [...] developed and its performance characteristics determined by [employer]. It has not been cleared or approved by the FDA; however, FDA clearance or approval is not currently required for clinical use. The results are not intended to be used as the sole means for clinical diagnosis or patient management decisions. 03/16/2023 9:35 AM CDT 03/16/2023 9:37 AM CDT Narrative Resulting Agency Comment Performing Organization Information: ?Site ID: [id number] ?Name: [employer] ?Address: [address] [place] [phone] ?Director: Keisha Smith MD,[place] Dinesh Navarro MD LAB BLOOD ORDERABLES Performing Organization Address [facility] Co de Phone Number [facility] [place] ([facility]) * (ABNORMAL) C-Reactive Protein (CRP), Serum (03/16/2023 9:35 AM CDT) Pathologist [facility] C reactive protein, Serum/Plasma 12.8(H) <8.0 mg/L [facility] ([facility]) 03/16/2023 9:35 AM CDT 03/16/2023 9:37 AM CDT Narrative Resulting Agency Comment Performing Organization Information: ?Site ID: [id number] ?Name: [facility] ?Address: [address] [place] [phone] ?Director: Lex Denise Dinesh Navarro MD LAB BLOOD ORDERABLES Performing Organization Address [facility] Co de Phone Number [facility] ([facility]) * (ABNORMAL) CBC (includes Differential/Platelets) (03/16/2023 9:35 AM CDT) Pathologist [facility] Leukocytes, Blood 8.6 3.8 - 10.8 Thousand/u [...] Performing Organization Information: ?Site ID: CB ?Name: [facility] ?Address: [address] [place] [phone] ?Director: Lex Denise Dinesh Navarro MD LAB BLOOD ORDERABLES Performing Organization Address [facility] de Phone Number [facility] [place] ([facility]) * (ABNORMAL) Erythrocyte Sedimentation Rate (ESR) (03/16/2023 9:35 AM CDT) Erythrocyte sedimentation rate (ESR) 36(H) < OR = 20 mm/h [facility] ([facility]) 03/16/2023 9:35 AM CDT 03/16/2023 9:37 AM CDT Narrative Resulting Agency Comment Performing Organization Information: ?Site ID: CB ?Name: [employer] [facility] ?Address: [address] [place] [phone] ?Director: Lex Denise Dinesh Navarro MD LAB BLOOD ORDERABLES Performing Organization Address [facility] de Phone Number [facility] ([facility]) * ASPERGILLUS AB BY ID (03/16/2023 [...] Performing Organization Information: ?Site ID: AMD ?Name: [place]/[facility] ?Address: [address] [place] [address] [place], [place] ?Director: Akshat Garcia M.D.,PhD Dinesh Navarro MD LAB BLOOD ORDERABLES Performing Organization Address [facility] de Phone Number [facility] ([facility]) * Blastomyces Antibody Id (03/16/2023 9:35 AM CDT) Blastomyces dermatitidis Ab, Serum Negative Negative [facility] ([facility]) Comment: Interpretive Criteria: ?Negative: Antibody not detected ?Positive: Antibody detected A positive result is diagnostic of active or recent blastomycosis and is found in approximately 80% of proven cases of blastomycosis. 03/16/2023 9:35 AM CDT 03/16/2023 9:37 AM CDT Narrative Resulting Agency Comment Performing Organization Information: ?Site ID: AMD ?Name: [place]/[facility] ?Address: [address] [place] [address] [place] ?Director: Akshat Garcia M.D.,PhD Dinesh Navraro MD LAB BLOOD ORDERABLES Performing Organization Address [facility] de Phone Number [facility] ([facility]) documented in this encounter Visit Diagnoses Not on filedocumented in this encounter Care Teams Customer Equipment Engineer Relationship Specialty Start Date End Date Brinda Cordero MD [address] [place] [address] PCP - General Family Medicine 03/16/23 documented as of this encounter
--- OUTSIDE RECORDS SUMMARY | 2023-05-28 16:42 | XMS_ITS | Encounter Summary ---
Author Name Unknown Organization [facility] Address [address], [place] [address] Phone Care Team Providers Care Supervisor Contact And Service Clerks Name Role Phone Brinda Cordero MD Primary Care Provider [phone] Reason for Visit * Reason Onset Date Comments CT scan or Labs 04/19/2023 Encounter Details Date Type Department Care Team Description 04/19/2023 Telephone [facility] [facility] [address] [facility] [address] [place], [place] [phone] Martha Stout RN CT scan or Labs Social History Tobacco Use Types Packs/Day Years [...] Telephone Encounter - Martha Stout RN - 04/19/2023 11:06 AM CST Liv called and was wondering about doing labs or CT scan. States that she is feeling worse and does not want to delay treatment any longer. I explained that she has an appointment next week and the Dittes is gone this week. States that she was in ER last night and doesn't want to go back there. documented in this encounter Plan of Treatment Not on file documented as of this encounter Visit Diagnoses Not on filedocumented in this encounter Care Teams Supervisor Contact And Service Clerks Relationship Specialty Start Date End Date Brinda Cordero MD [address] [place] [address] PCP - General Family Medicine 03/16/23 documented as of this encounter
--- OUTSIDE RECORDS SUMMARY | 2023-05-28 16:42 | XMS_ITS | Encounter Summary ---
Author Name Unknown Organization [facility] Address [address] [place] [address] Phone Care Team Providers Care Director Distribution Name Role Phone Brinda Cordero MD Primary Care Provider [phone] Reason for Visit * Reason Onset Date Comments Labs Only 03/30/2023 Encounter Details Date Type Department Care Team Description 03/30/2023 Telephone [employer] [address] [facility] [address] [place] [address] Martha Stout, CH[facility]LER Labs Only Social History [...] Telephone Encounter - Martha Stout RN - 03/30/2023 11:[address] Navarro wanted to have labs done before her next appointment. Liv was notified and labs were faxed to [facility]. Liv asked if we could add Toxoplasma antigens to lab request. Dr Navarro approved. documented in this encounter Plan of Treatment Not on file documented as of this encounter Visit Diagnoses Not on filedocumented in this encounter Care Teams Director Distribution Relationship Specialty Start Date End Date Brinda Cordero MD [address] [place] [address] [place] [address] PCP - General Family Medicine 03/16/23 documented as of this encounter
--- OUTSIDE RECORDS SUMMARY | 2023-05-28 16:42 | XMS_ITS | Encounter Summary ---
Author Name Unknown Organization [facility] Address [address], [place] [address] Phone Care Team Providers Care Manager Ecommerce Name Role Phone Brinda Cordero MD Primary Care Provider [phone] Reason for Visit * Reason Onset Date Comments Lab results 04/21/2023 Encounter Details Date Type Department Care Team Description 04/21/2023 Telephone [employer] [address] [facility] [address] [place] [address] Martha Stout RN Lab results Social History Tobacco Use Types Packs/Day Years [...] Telephone Encounter - Martha Stout RN - 04/21/2023 10:24 AM CST Liv states that she had labs done at [facility]. I have not received the results. I called [facility] for the results and they said they would fax them, documented in this encounter Plan of Treatment Not on file documented as of this encounter Visit Diagnoses Not on filedocumented in this encounter Care Teams Manager Ecommerce Relationship Specialty Start Date End Date Brinda Cordero MD [facility] [address] [place] [address] PCP - General Family Medicine 03/16/23 documented as of this encounter
--- OUTSIDE RECORDS SUMMARY | 2023-05-28 16:42 | XMS_ITS | Encounter Summary ---
Author Name Unknown Organization [facility] Address [address] [place] [address] Phone Care Team Providers Care Tenter Name Role Phone Brinda Cordero MD Primary Care Provider [phone] Encounter Details Date Type Department Care Team Description 04/27/2023 11:00 AM [facility] Office Visit [employer] [address] [place], [place] [address] Dinesh Navarro MD [address] [place], [place] [address] Granulomatous pneumonia (Primary Dx) Social History Tobacco Use Types Packs/Day Years [...] on file documented as of this encounter Last Filed Vital Signs Vital Sign Reading Time Taken Comments Blood Pressure 124/84 04/27/2023 11:01 AM [facility] Pulse 88 04/27/2023 11:01 AM [facility] Temperature 36.4 ??C (97.6 ??F) 04/27/2023 11:[address] Respiratory Rate - - Oxygen Saturation - - Inhaled Oxygen Concentration - - Weight 77.3 kg (170 lb 6.4 oz) 04/27/2023 11:01 AM [facility]ILY [employer] Height 161.3 cm (5' 3.5) 04/27/2023 11:01 AM CS T Body Mass Index 29.71 04/27/2023 11:01 AM [facility]ILY [employer] documented in this encounter Progress Notes * Dinesh Navarro MD - 04/27/2023 11:00 AM CST Images from the original note were not included. Primary care physician : Brinda Cordero MD Referring Physician : Drea Russell Date of consult : 04/28/23 Subjective History of Present Illness: Liv Evans is a 32 y.o. female presenting with follow-up visit with her ongoing granulomatous lung process. Unfortunately symptoms if anything are worse. She noticesfrequent chest discomfort on that side along with a sense of shortness of breath. She continues to eat okay not losing weight not really having fevers chills or illness type symptoms. Has not really developed any other focal or localizing symptoms did notice some rash on her back but nothing really notable on exam. No other significant problems or issues have occurred. Her infection workup is completely negative with all fungal studies negative, very importantly in addition the fungal cu lture on the bronchoscopy was negative. I did a number of vasculitis type labs none of those were very impressive or abnormal although inflammatory markers are modestly elevated.. Review of Systems Constitutional: Does not feel particularly well general fatigue and malaise ongoing chest symptoms intermittently not having major fevers or chills not losing weight. No other new focal symptoms All other systems reviewed and are negative. No current outpatient medications on file. No current facility-administered medications for this visit. Past Medical History: Diagnosis Date Anxiety state Asthma Autoimmune disease ([facility]) Blindness in one eye Depressive disorder Essential hypertension Hearing loss Other and unspecified hyperlipidemia Tension headache Past Surgical History: Procedure Laterality Date BUNIONECTOMY CHOLECYSTECTOMY HERNIA REPAIR LYMPH NODE BIOPSY Allergies Allergen Reactions Latex Itching Pt reports a little tightness with breathing and itching Penicillins Hives Sulfamethoxazole-Trimethoprim Family History Problem Relation Age of Onset Stroke Mother Hypertension Mother Depression Mother COPD Mother Cancer Mother Asthma Mother Arthritis Mother Alcohol abuse Mother Diabetes Father Alcohol abuse Father Depression Sister Social History Tobacco Use Smoking status: Never Passive exposure: Never Smokeless tobacco: Never Vaping Use Vaping Use: Never used Substance Use Topics Alcohol use: Yes Comment: Occasional Drug use: Never Objective BP 124/84 (BP Location: Left arm, Patient Position: Sitting, BP Cuff Size: Adult) Pulse 88 Temp97.6 ??F (36.4 ??C) (Temporal) Ht 5' 3.5 (1.613 m) Wt 170 lb 6.4 oz (77.3 kg) BMI 29.71 kg/m?? BSA 1.86 m?? Synopsis No data to display Physical Exam Vitals and nursing note reviewed. Constitutional: Appearance: She is well-developed and well-nourished. Comments: looks okay on exam no major abnormalities lungs are relatively clear the area rash looks like some mild folliculitis not particularly impressive looking rash. No major joint abnormalities otherwise normal Assessment/Plan IMP 1 32-year-old female with many months and possibly longer symptoms including respiratory and chest symptoms, not really improving, biopsy showed granulomatous inflammation while the biopsy reading said fever or histoplasmosis is a diagnosis in point of fact nothing definitive for fungal infection and all fungal workup negative, overall I think it is likely were tracking towards something likea granulomatous vasculitis of some kind despite the reading from the pathology, fairly unlikely this is fungal given the completely negative studies and the course of events. REC 1 Difficult problem unclear diagnosis. I am going to start itraconazole get levels in 2 weeks my anticipation is this will have no impact on her symptoms if roughly a month from now this is unchanged with ongoing symptoms with think neck step at that point is repeat imaging Dr. Rangel to reevaluate, consideration of steroids or other treatment or possibly rebiopsy, question [facility] reviewed the pathology, I think this is a noninfectious process and not fungal infection but if response to antifungal treatment we will likely do a full course of treatment No orders of the defined types were placed in this encounter. DINESH [facility]ARRO [facility] documented in this encounter Plan of Treatment Not on file documented as of this encounter Visit Diagnoses Diagnosis Granulomatous pneumonia- Primary documented in this encounter Care Teams Tenter Relationship Specialty Start Date End Date Brinda Cordero MD [address] [place] [address] PCP - General Family Medicine 03/16/23 documented as of this encounter
--- OUTSIDE RECORDS SUMMARY | 2023-05-28 16:42 | XMS_ITS | Encounter Summary ---
Author Name Unknown Organization [facility] Address [address] [place] [address] Phone Care Team Providers Care Prestidigitator Name Role Phone Brinda Cordero MD Primary Care Provider [phone]- [phone] Encounter Details Date Type Department Care Team Description 03/16/2023 9:20 AM MDT Office Visit [facility] [address] [place], [place] [address] Dinesh Navarro MD [address] [place], [place] [address] Granulomatous pneumonia (Primary Dx) Social History Tobacco [...] Sign Reading Time Taken Comments Blood Pressure 157/107 03/16/2023 9:33 AM CDT Pulse 96 03/16/2023 9:33 AM CDT Temperature 37.1 ??C (98.7 ??F) 03/16/2023 9:33 AM CD T Respiratory Rate 16 03/16/2023 9:33 AM CDT Oxygen Saturation 98% 03/16/2023 9:33 AM CDT Inhaled Oxygen Concentration - - Weight 77.2 kg (170 lb 3.2 oz) 03/16/2023 9:33 A M CDT Height 157.5 cm (5' 2) 03/16/2023 9:33 AM CDT Body Mass Index 31.13 03/16/2023 9:33 AM CDT documented in this encounter Progress Notes * Dinesh Navarro MD - 03/16/2023 9:20 AM CDT Images from the original note were not included. Primary care physician : Brinda Cordero MD Referring Physician : Drea Russell Date of consult : 03/19/23 Subjective History of Present Illness: Liv Evans is a 32 y.o. female presenting with first clinic visit on referral by Dr. Russell of pulmonary medicine. Patient is deaf making for some history taking issues but did have an diplomatic interpreter/translator available. Patient is generally been healthy historically and the current problem is primarily this year but part of it goes back to last year. She had a couple of episodes of pneumonia and had COVID previously with symptoms she is also had some degree of historical asthma but never anything that was requiring medical attention. Her symptoms began to some degree last summer had an illness including some pain and fever at that time diagnosed with pneumonia treated with antibiotics with some improvement. In retrospect however some of the symptoms have persisted slight degree of cough may be some systemic symptoms but not entirely clear. Then notable worsening of symptoms in the last several months. Eventually led up to imaging that showed definite inflammatory process in the lung. 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 She did have full fungal cultures done on that that are negative. The pathology describes itas suggesting histoplasmosis although in reading carefully the the actual path report there were nohisto organisms seen. Of note since this study the patient continues to not feel well not having definite fever but feelsslight fever symptoms. Slight cough, no longer having chest discomfort. No other clear focal or localizing symptoms suggestive of a generalized illness no recent travel or exposures no one else has been around its been ill. No notable history of any major family inflammatory type illnesses Review of Systems Constitutional: as per the HPI, in addition some degree of headaches without other overt neurologic symptoms. No significant weight loss appetite okay no major GI symptoms may be slight shortness of breath with walking and exertion No current outpatient medications on file. No current facility-administered medications for this visit. Patient Active Problem List Diagnosis Sensorineural hearing loss, bilateral Scoliosis of lumbar spine Polycystic ovary syndrome Occipital headache Neck pain Hematuria Back pain Deaf mutism Dermatitis Elevated erythrocyte sedimentation rate Environmental allergy Essential hypertension Fatty liver Gastritis Gestational diabetes mellitus H/O: premature delivery Allergies Allergen Reactions Latex Itching Pt reports a little tightness with breathing and itching Penicillins Hives Sulfamethoxazole-Trimethoprim No family history on file. Social History Tobacco Use Smoking status: Never Smokeless tobacco: Never Vaping Use Vaping Use: Never used Substance Use Topics Alcohol use: Yes Comment: Occasional Drug use: Never Objective BP (!) 157/107 (BP Location: Left arm, Patient Position: Sitting, BP Cuff Size: Adult) Pulse 96 Temp 98.7 ??F (37.1 ??C) (Temporal) Resp 16 Ht 5' 2 (1.575 m) Wt 170 lb 3.2 oz (77.2 kg) SpO2 98% BMI 31.13 kg/m?? BSA 1.84 m?? Synopsis No data to display Physical Exam Vitals and nursing note reviewed. Constitutional: Appearance: She is well-developed and well-nourished. Comments: unremarkable exam no significant lymphadenopathy, no significant rashes or skin lesions or major joint abnormalities lungs clear Assessment/Plan IMP 1 32-year-old female, several months and possibly year-long respiratory syndrome with mild systemic symptoms, imaging abnormalities on chest with biopsy showing necrotizing granulomatous, somewhat hard to put together story assuming truly year-long, in addition fungal cultures negative for the most likely diagnosis of fungal infection, unclear picture at this point REC 1 get multiple serologic studies looking for fungal infection and other, get generalized inflammatory markers and other labs, exact approach to this is unclear 2 as labs come back we will discuss with Dr. Russell the pulmonary nurse practitioner on the case to try to do makesense of this story No orders of the defined types were placed in this encounter. DINESH NAVARRO MD documented in this encounter Plan of Treatment Not on file documented as of this encounter Visit Diagnoses Diagnosis Granulomatous pneumonia- Primary documented in this encounter Care Teams Prestidigitator Relationship Specialty Start Date End Date Brinda Cordero MD [address] [place] [address] PCP - General Family Medicine 03/16/23 documented as of this encounter
[2023-05-28 18:07] LABS: Aspartate Amino Transferase* 44 U/L (12-35)
[2023-05-28 18:11] LABS: C Reactive Protein* 1.2 mg/dL (0.5-1.0)
[2023-05-28 19:19] LABS: Erythrocyte SedimentationRate* 16 mm/hr (2-20)
== END 2023-05-28 16:26 | disposition home or self-care (01) ==
LOC: NPINS 16:25
PROVIDERS: PCP Family Medicine; Visit Provider Internal Medicine Infectious Disease
DX: J18.8 Other pneumonia, unspecified organism (principal)
CPT/HCPCS: 80189; 84450; 85651; 86140

== ENCOUNTER 2023-06-18 15:38 | Outpatient (CLI) | payer MEDICARE, SELFPAY ==
--- OUTSIDE RECORDS SUMMARY | 2023-06-18 15:42 | XMS_ITS | Encounter Summary ---
Author Name Unknown Organization [facility] Address [address] [place] [address] Phone Care Team Providers Care Extractor Tender Raw Stock Name Role Phone Brinda Cordero MD Primary Care Provider [phone]- [phone] Reason for Visit * Reason Onset Date Comments Labs Only 05/20/2023 Encounter Details Date Type Department Care Team Description 05/20/2023 Telephone [facility] [address] [place], [place] [address] Martha Stout, CHANDLER Labs Only Social History [...] for almost 3 weeks. Orders faxed to [facility] for liver enzymes and itraconazole trough. [...] on filedocumented in this encounter Care Teams Extractor Tender Raw Stock Relationship Specialty Start Date End Date Brinda Cordero MD [address] [place] [address] PCP - General Family Medicine 03/16/23 documented as of this encounter
--- OUTSIDE RECORDS SUMMARY | 2023-06-18 15:42 | XMS_ITS | Encounter Summary ---
Author Name Unknown Organization [facility] Address [address] [place] [address] Phone Care Team Providers Care Kindergarten Paraprofessional Name Role Phone Brinda Cordero MD Primary Care Provider [phone] Reason for Visit * Reason Onset Date Comments Labs Only 03/30/2023 Encounter Details Date Type Department Care Team Description 03/30/2023 Telephone [facility] [address] [facility] [address] [place] [address] Martha Stout RN Labs Only Social History Tobacco Use Types [...] was notified and labs were faxed to [facility]. Liv asked if we could add Toxoplasma antigens to lab request. Dr Navarro approved. documented in this encounter Plan of Treatment Not on file documented as of this encounter Visit Diagnoses Not on filedocumented in this encounter Care Teams Kindergarten Paraprofessional Relationship Specialty Start Date End Date Brinda Cordero MD [address] [place] [address] [place] [address] PCP - General Family Medicine 03/16/23 documented as of this encounter
--- OUTSIDE RECORDS SUMMARY | 2023-06-18 15:42 | XMS_ITS | Encounter Summary ---
Author Name Unknown Organization [facility] Address [address] [place] [address] Phone Care Team Providers Care Glass Carrier Name Role Phone Brinda Cordero MD Primary Care Provider [phone] Encounter Details Date Type Department Care Team Description 05/14/2023 [facility] [address] [facility] [address] [place] [address] Martha Stout RN Social History Tobacco Use [...] encounter Miscellaneous Notes * Telephone Encounter - Mratha Stout RN - 05/14/2023 3:00 PM CST [...] on filedocumented in this encounter Care Teams Glass Carrier Relationship Specialty Start Date End Date Brinda Cordero MD [address] [place] [address] PCP - General Family Medicine 03/16/23 documented as of this encounter
--- OUTSIDE RECORDS SUMMARY | 2023-06-18 15:42 | XMS_ITS | Clinical Summary ---
Author Name Unknown Organization [facility] Address [address] [place] [address] Phone Care Team Providers Care Sales Administrator Name Role Phone Brinda Cordero MD Primary [...] evening. 120 capsule 0 04/30/2023 05/30/2023 Active Problems Problem Noted Date Diagnosed Date [...] Encounters Date Type Department Care Team Description 06/02/2023 Telephone [facility] [address] [place] [address] Griselda Lamas, CHANDLER Sx persist, provider recommendations 05/20/2023 Telephone [facility] [employer] [address] [place] [address] Martha Stout, CHANDLER Labs Only 05/14/[address] [facility] [address] [place] [address] Martha Stout, CHANDLER 05/13/[address] [facility] [address] [place] [address] Martha Stout, CHANDLER 05/13/2023 Telephone [facility] [address] [place] [address] Martha Stout, CHANDLER New symptoms 04/28/2023 Refill [facility] [address] [place] [address] Martha Stout, CHANDLER 04/27/2023 11:00 AM MST Office Visit [facility] [address] [place] [address] Dinesh Navarro MD Granulomatous pneumonia (Primary Dx) 04/21/2023 Telephone [facility] [address] [place] [address] Martha Stout, community health coordinator results 04/19/2023 Telephone [facility] [address] [place] [address] Martha Stout, CHANDLER CT scan or Labs 03/30/2023 Telephone [facility] [address] [place] [address] Martha Stout, RN Labs Only from Last 3 Months Immunizations Name Administration [...] Comments Blood Pressure 124/84 04/27/2023 11:01 AM REFINERY OPERATOR HELPER CRUDE UNIT Pulse 88 04/27/2023 11:01 AM REFINERY OPERATOR HELPER CRUDE UNIT Temperature 36.4 ??C (97.6 ??F) 04/27/2023 11:[address] Respiratory Rate 16 03/16/2023 9:33 AM CDT Oxygen Saturation 98% 03/16/2023 9:33 AM CDT Inhaled Oxygen Concentration - - Weight 77.3 kg (170 lb 6.4 oz) 04/27/2023 11:01 AM REFINERY OPERATOR HELPER CRUDE UNIT Height 161.3 cm (5' 3.5) 04/27/2023 11:01 AM CS T Body Mass Index 29.71 04/27/2023 11:01 AM REFINERY OPERATOR HELPER CRUDE UNIT Plan of Treatment Health Maintenance Due Date Last Done Comments Pneumococcal PPSV23 Highest Risk Adult (1 of 3 - PCV13) 2007 COVID-19 Vaccine (4 - 2022-2 4 season) 2023 04/07/2022, 02/26/2021, 02/05/2021 Influenza Vaccine (#1) 2023 , 08/22/2021, 03/17/2019, Additional history exists Care Teams Sales Administrator Relationship Specialty Start Date End Date Brinda Cordero MD [address] [place] [address] PCP - General Family Medicine 03/16/23
--- OUTSIDE RECORDS SUMMARY | 2023-06-18 15:42 | XMS_ITS | Encounter Summary ---
Author Name Unknown Organization [facility] Address [address] [place] [address] Phone Care Team Providers Care Director Packaging Name Role Phone Brinda Cordero MD Primary Care Provider [phone]- [phone] Reason for Visit * Reason Onset Date Comments Sx persist, provider recommendations 06/02/2023 Encounter Details Date Type Department Care Team Description 06/02/2023 Telephone [facility] [address] [place] [address] Griselda Lamas, CHANDLER Sx persist, provider recommendations Social History Tobacco Use Types Packs/Day Years [...] encounter Miscellaneous Notes * Telephone Encounter - Griselda Lamas RN - 06/02/2023 12:15 PM DISTRICT MANAGER Spoke with patient, she was calling to see if she was done taking the itraconazole. Her end date [facility] states 05/30/23 She reports she has the same symptoms still. Hard breathing chest feels heavy feels very tired and drained. She reports her left nostril is congested and unable to breathe through it. Does Dr Navarro recommend more medication or have a further follow up plan? Sending message to Dr Navarro to review and advise. 3:29p per Dr Navarro the fact that symptoms are still present and not better while being on an antifungal indicates that the infection is most likely not fungal in nature and he would refer her back to pulmonology, with help of wedding cake designer this was relayed to patient on her [employer] system. documented in this encounter Plan of Treatment Not on file documented as of this encounter Visit Diagnoses Not on filedocumented in this encounter Care Teams Director Packaging Relationship Specialty Start Date End Date Brinda Cordero MD [address] [place] [address] PCP - General Family Medicine 03/16/23 documented as of this encounter
--- OUTSIDE RECORDS SUMMARY | 2023-06-18 15:42 | XMS_ITS | Encounter Summary ---
Author Name Unknown Organization [facility] Address [address], [place] [address] Phone Care Team Providers Care Cabana Attendant Name Role Phone Brinda Cordero MD Primary Care Provider [phone]- [phone] Reason for Visit * Reason Onset Date Comments Med Refill 04/28/2023 Encounter Details Date Type Department Care Team Description 04/28/2023 Refill [facility] [address] [facility] [address] [place], [place] [address] Martha Stout RN Social History Tobacco Use [...] Liv wants her labs to go to [facility] They will be done 2 weeks after have started itraconazole. Liv will call after 3 weeks and let me know if she has any resolution in her symptoms with the itraconazole. documented in this encounter Plan of Treatment Not on file documented as of this encounter Visit Diagnoses Not on filedocumented in this encounter Care Teams Cabana Attendant Relationship Specialty Start Date End Date Brinda Cordero MD [facility] [place] [address] PCP - General Family Medicine 03/16/23 documented as of this encounter
--- OUTSIDE RECORDS SUMMARY | 2023-06-18 15:42 | XMS_ITS | Encounter Summary ---
Author Name Unknown Organization [facility] Address [address], [place] [address] Phone Care Team Providers Care Psychiatry Teacher Name Role Phone Brinda Cordero MD Primary Care Provider [phone] Reason for Visit * Reason Onset Date Comments Lab results 04/21/2023 Encounter Details Date Type Department Care Team Description 04/21/2023 Telephone [facility] [address] [facility] [address] [place] [address] Martha Stout RN Lab results Social History [...] states that she had labs done at [facility]. I have not received the results. I called [place] for the results and they said they would fax them, documented in this encounter Plan of Treatment Not on file documented as of this encounter Visit Diagnoses Not on filedocumented in this encounter Care Teams Psychiatry Teacher Relationship Specialty Start Date End Date Brinda Cordero MD [facility] [address] [facility] [place] [address] PCP - General Family Medicine 03/16/23 documented as of this encounter
--- OUTSIDE RECORDS SUMMARY | 2023-06-18 15:42 | XMS_ITS | Encounter Summary ---
Author Name Unknown Organization [facility] Address [address] [place] [address] Phone Care Team Providers Care Metal Plater Name Role Phone Brinda Cordero MD Primary Care Provider [phone]- [phone] Encounter Details Date Type Department Care Team Description 04/27/2023 11:00 AM [facility] Office Visit [facility] [address] [place], [place] [address] Dinesh Navarro MD [address] [place], [place] [address] Granulomatous pneumonia (Primary Dx) Social History Tobacco [...] Comments Blood Pressure 124/84 04/27/2023 11:01 AM SENIOR COBOL DEVELOPER Pulse 88 04/27/2023 11:01 AM SENIOR COBOL DEVELOPER Temperature 36.4 ??C (97.6 ??F) 04/27/2023 11:[address] Respiratory Rate - - Oxygen Saturation - - Inhaled Oxygen Concentration - - Weight 77.3 kg (170 lb 6.4 oz) 04/27/2023 11:01 AM SENIOR COBOL DEVELOPER Height 161.3 cm (5' 3.5) 04/27/2023 11:01 AM CS T Body Mass Index 29.71 04/27/2023 11:01 AM SENIOR COBOL DEVELOPER documented in this encounter Progress Notes * [...] Diagnosis Date Anxiety state Asthma Autoimmune disease ([facility]) Blindness in one eye Depressive disorder Essential [...] or other treatment or possibly rebiopsy, question [facility] reviewed the pathology, I think this is a noninfectious process and not fungal infection but if response to antifungal treatment we will likely do a full course of treatment No orders of the defined types were placed in this encounter. DINESH NAVARRO MD [facility] documented in this encounter Plan of Treatment Not on file documented as of this encounter Visit Diagnoses Diagnosis Granulomatous pneumonia- Primary documented in this encounter Care Teams Metal Plater Relationship Specialty Start Date End Date Brinda Cordero MD [address] [place] [address] PCP - General Family Medicine 03/16/23 documented as of this encounter
--- OUTSIDE RECORDS SUMMARY | 2023-06-18 15:42 | XMS_ITS | Encounter Summary ---
Author Name Unknown Organization [facility] Address [address], [place] [address] Phone Care Team Providers Care Cord Maker Name Role Phone Brinda Cordero MD Primary Care Provider [phone]- [phone] Reason for Visit * Reason Onset Date Comments CT scan or Labs 04/19/2023 Encounter Details Date Type Department Care Team Description 04/19/2023 Telephone [facility] [address] [facility] [address] [place], [place] [address] Martha Stout RN CT scan or Labs [...] on filedocumented in this encounter Care Teams Cord Maker Relationship Specialty Start Date End Date Brinda Cordero MD [address] [place] [address] PCP - General Family Medicine 03/16/23 documented as of this encounter
--- OUTSIDE RECORDS SUMMARY | 2023-06-18 15:42 | XMS_ITS | Encounter Summary ---
Author Name Unknown Organization [facility] Address [address] [place] [address] Phone Care Team Providers Care Candle Wrapper Name Role Phone Brinda Cordero MD Primary Care Provider [phone] Reason for Visit * Reason Onset Date Comments New symptoms 05/13/2023 Encounter Details Date Type Department Care Team Description 05/13/[address] [facility] [address] [facility] [address] [place] [address] Martha Stout RN New symptoms Social History [...] on filedocumented in this encounter Care Teams Candle Wrapper Relationship Specialty Start Date End Date Brinda Cordero MD [address] [place] [address] PCP - General Family Medicine 03/16/23 documented as of this encounter
--- OUTSIDE RECORDS SUMMARY | 2023-06-18 15:42 | XMS_ITS | Encounter Summary ---
Author Name Unknown Organization [facility] Address [address] [place] [address] Phone Care Team Providers Care Line Assembler Aircraft Name Role Phone Brinda Cordero MD Primary Care Provider [phone]- [phone] Encounter Details Date Type Department Care Team Description 05/13/2023 Telephone [facility] [address] [facility] [address] [place], [place] [address] Martha Stout RN Social History Tobacco Use [...] on filedocumented in this encounter Care Teams Line Assembler Aircraft Relationship Specialty Start Date End Date Brinda Cordero MD [address] [place] [address] PCP - General Family Medicine 03/16/23 documented as of this encounter
--- OUTSIDE RECORDS SUMMARY | 2023-06-18 15:43 | XMS_ITS | Encounter Summary ---
Author Name Unknown Organization [facility] ut[facility] Address [address] [place] [address] Phone Care Team Providers Care Mine Engineering Manager Name Role Phone Brinda Cordero MD Primary Care Provider [phone] Encounter Details Date Type Department Care Team Description 03/16/2023 Orders Only [facility] [address] [place], [place] [address] Dinesh Navarro MD [address] [facility] [address] [place], [place] [id number] Social History Tobacco Use Types Packs/Day Years [...] TB Gold Plus (03/16/2023 9:35 AM CDT) [facility] Mycobacterium tuberculosis stimulated gamma interferon, Blood NEGATIVE [...] T-lymphocytes. For additional information, please refer to https://education.[employer]/faq/RKD630 (This link is being provided for informational/ educational purposes only.) 03/16/2023 9:35 AM CDT 03/16/2023 9:37 AM CDT Narrative Resulting Agency Comment Performing Organization Information: ?Site ID: CB ?Name: [facility] ?Address: [address] [place] [phone] ?Director: Lex Denise Dinesh Navarro MD LAB BLOOD ORDERABLES [facility] ([facility]) * Histoplasma Galactomannan Ag EIA, Urine (03/16/2023 9:35 AM CDT) Pathologist [facility] Histoplasma capsulatum Ag, Urine <0.2 ng/mL [facility] ([facility]) Comment: REFERENCE RANGE: <0.2 ng/mL Histoplasma galactomannan [...] Performing Organization Information: ?Site ID: EZ ?Name: [facility], ?Address: [address] [place] [phone] ?Director: Jaqueline Whitmore MD,PhD,JAMES Dinesh Navarro MD LAB URINE ORDERABLES Performing Organization Address [facility] de Phone Number [facility] ([facility]) * Coccidioides Antibody ID (03/16/2023 9:35 AM CDT) Coccidioides immitis Ab, Serum NEGATIVE CHEY Villalba JOSSYNAOMIE ([facility]) Comment: REFERENCE RANGE: NEGATIVE INTERPRETIVE CRITERIA: ?NEGATIVE: [...] Comment Performing Organization Information: ?Site ID: ?Name: [facility], ?Address: [address] [place] [phone] ?Director: Jaqueline Whitmore MD,PhD,JAMES Dinesh Navarro MD LAB BLOOD ORDERABLES Performing Organization Address [facility] de Phone Number [facility] ([facility]) * Histo(Plasma) Antibody ID (03/16/2023 9:35 AM [...] Performing Organization Information: ?Site ID: EZ ?Name: [facility], ?Address: [address] [place] [phone] ?Director: Jaqueline Whitmore MD,PhD,JAMES Dinesh Navarro MD LAB BLOOD ORDERABLES Performing Organization Address [facility]/ZIP Co de Phone Number CHEY Deejay JOSSYNAOMIE ([facility]) * Angiotensin-converting Enzyme (DANNY), Serum (03/16/2023 9:35 AM CDT) Angiotensin Converting Enzyme (DANNY), Serum/Plasma 37 9 - 67 U/L [facility] ([facility]) 03/16/2023 9:35 AM CDT 03/16/2023 9:37 AM CDT Narrative Resulting Agency Comment Performing Organization Information: ?Site ID: CB ?Name: [facility] ?Address: [address] [place] [phone] ?Director: eLx Denise Dinesh Navarro MD LAB BLOOD ORDERABLES Performing Organization Address City/[facility]/ZIP Co de Phone Number [facility] [...] developed and its performance characteristics determined by [employer]. It has not been cleared or approved by the FDA; however, FDA clearance or approval is not currently required for clinical use. The results are not intended to be used as the sole means for clinical diagnosis or patient management decisions. 03/16/2023 9:35 AM CDT 03/16/2023 9:37 AM CDT Narrative Resulting Agency Comment Performing Organization Information: ?Site ID: MVT ?Name: [facility] ?Address: [address] [place] [phone] ?Director: Keisha Smith MD,[facility] Dinesh Navarro MD LAB BLOOD ORDERABLES [...] developed and its performance characteristics determined by [employer]. It has not been cleared or approved by the FDA; however, FDA clearance or approval is not currently required for clinical use. The results are not intended to be used as the sole means for clinical diagnosis or patient management decisions. 03/16/2023 9:35 AM CDT 03/16/2023 9:37 AM CDT Narrative Resulting Agency Comment Performing Organization Information: ?Site ID: MVT ?Name: [facility] ?Address: [address] [place] [phone] ?Director: Keisha Smith MD,[place]-[facility] Dinesh Navarro MD LAB BLOOD ORDERABLES Performing Organization Address [facility] Co de Phone Number CHEY CHONGGET ([facility]) * (ABNORMAL) C-Reactive Protein (CRP), Serum (03/16/2023 9:35 AM CDT) Pathologist [facility] C reactive protein, Serum/Plasma 12.8(H) <8.0 mg/L [facility]ULLER ([facility]) 03/16/2023 9:35 AM CDT 03/16/2023 9:37 AM CDT Narrative Resulting Agency Comment Performing Organization Information: ?Site ID: CB ?Name: [facility] ?Address: [address] [place] [phone] ?Director: Lex Denise Dinesh Navarro MD LAB BLOOD ORDERABLES Performing Organization Address [facility] Co de Phone Number CHEY CHONGGET ([facility]) * (ABNORMAL) CBC (includes Differential/Platelets) (03/16/2023 9:35 AM CDT) Pathologist [facility] Leukocytes, Blood 8.6 3.8 - 10.8 Thousand/u [...] Organization Information: ?Site ID: CB ?Name: [facility] ?Address: [address] [place] [phone] ?Director: Lex Denise Dinesh Navarro MD LAB BLOOD ORDERABLES Performing Organization Address [facility] de Phone Number CHEY CHONGLE ([facility]) * (ABNORMAL) Erythrocyte Sedimentation Rate (ESR) (03/16/2023 9:35 AM CDT) Erythrocyte sedimentation rate (ESR) 36(H) < OR = 20 mm/h [facility] ([facility]) 03/16/2023 9:35 AM CDT 03/16/2023 9:37 AM CDT Narrative Resulting Agency Comment Performing Organization Information: ?Site ID: CB ?Name: [facility] ?Address: [address] [place] [phone] ?Director: Lex Denise Dinesh Navarro MD LAB BLOOD ORDERABLES Performing Organization Address [facility] de Phone Number CHEY CHONGLE ([facility]) * [...] Performing Organization Information: ?Site ID: AMD ?Name: [facility] ?Address: [address] [place] [address] [place], [place] ?Director: Akshat Garcia M.D.,PhD Dinesh Navarro MD LAB BLOOD ORDERABLES Performing Organization Address [facility] de Phone Number [facility]Y [facility]ULLER ([facility]) * [...] Performing Organization Information: ?Site ID: AMD ?Name: [facility] ?Address: [address] [place] [address] [place], [place] ?Director: Akshat Garcia M.D.,PhD Dinesh Navarro MD LAB BLOOD ORDERABLES Performing Organization Address [facility] de Phone Number [facility] ([facility]) documented in this encounter Visit Diagnoses Not on filedocumented in this encounter Care Teams Mine Engineering Manager Relationship Specialty Start Date End Date Brinda Cordero MD [address] [place] [address] PCP - General Family Medicine 03/16/23 documented as of this encounter
--- OUTSIDE RECORDS SUMMARY | 2023-06-18 15:43 | XMS_ITS | Continuity of Care Document ---
Author Name Unknown Organization [facility] Address [address] [place] [address] Phone Care Team Providers Care Gas Regulator Repairer Name Role Phone Evangelina Cedillo Unavailable Unavailable Advance Directives Directive Yes / No Effective Date File Name No Information Encounters Encounter Description Practice Location Reason(s) For Visit Diagnoses Date Provider Providers Copied on Encounter [facility], [address], [place], [place], [id number], [place] tel:[phone] [facility] Specialty [place] No Information Isaias Hutchinson. [facility], [address] [place] [address], [place], [place], [id number], [place]. tel:[phone] Referring Provider: Sergio Her, [address], [place], [address]. tel:[phone] Family History Family Member Type Diagnosis Age At Onset No Information Payers Payer name Insurance type Covered libertarian ID Authoriza tion(s) No Information Social History [...]
--- OUTSIDE RECORDS SUMMARY | 2023-06-18 15:43 | XMS_ITS | Encounter Summary ---
Author Name Unknown Organization [facility] Address [address] [place] [address] Phone Care Team Providers Care Optics Manufacturing Technician Name Role Phone Brinda Cordero MD Primary Care Provider [phone] Encounter Details Date Type Department Care Team Description 03/16/2023 9:20 AM MDT Office Visit [facility] [address] [place], [place] [address] Dinesh Navarro MD [address] [place], [place] [address] Granulomatous pneumonia (Primary Dx) Social History Tobacco [...] history taking issues but did have an line up worker available. Patient is generally been healthy historically [...] we will discuss with Dr. Russell the residential door unit installer on the case to try to do makesense of this story No orders of the defined types were placed in this encounter. DINESH NAVARRO MD documented in this encounter Plan of Treatment Not on file documented as of this encounter Visit Diagnoses Diagnosis Granulomatous pneumonia- Primary documented in this encounter Care Teams Optics Manufacturing Technician Relationship Specialty Start Date End Date Brinda Cordero MD [address] [place] [address] PCP - General Family Medicine 03/16/23 documented as of this encounter
--- NOTE | 2023-06-18 16:00 | CRLHL7_ITS ---
For Patients: As a result of the Century Cures Act, medical imaging exams and procedure reports are released immediately into your electronic medical record. You may view this report before your referring provider. If you have questions, please contact your health care provider. INDICATION: Pulmonary nodule. TECHNIQUE: CT chest without contrast. COMPARISON: PET-CT performed 12/31/2022, chest CT performed 11/02/2022 FINDINGS: Lungs: Again noted are multi nodular foci in the right middle lobe. The dominant nodular focus along the costophrenic sulcus measures 1.6 x 1.1 centimeters, previously measuring 2.7 x 1.9 centimeters. A small nodule located superiorly to the dominant costophrenic focus measures 0.6 centimeters, previously 0.7 centimeters. A more consolidative cluster of nodules along the pleura, best measured on sagittal imaging, measures 1.7 x 1.4 centimeters, previously 1.6 x 1.5 centimeters. Mediastinum: Cardiomegaly, no other significant mediastinal abnormality appreciated. Lymph nodes: No gross lymphadenopathy appreciated. Upper abdomen: Hepatic steatosis. Status post cholecystectomy. No other significant abnormality appreciated. Soft tissues: Unremarkable. Bones: Thoracic dextroscoliosis with no fracture or appreciated lytic or blastic lesion. IMPRESSION: Redemonstration of multifocal nodular lesions in the right middle lobe. Compared to examination from 11/02/2022, the largest lesion along the costophrenic sulcus is persistent but has decreased in size, while the remaining lesions are minimally changed from prior examination. Given persistence over time and the hypermetabolic nature on PET-CT, tissue sampling would be recommended as neoplasm cannot be excluded. Additional follow-up considerations may include three-month follow-up chest CT or repeat PET-CT to assess for change in metabolism. Please note that all CT scans at this facility use dose modulation, iterative reconstruction, and/or weight-based dosing when appropriate to reduce radiation dose to as low as reasonably achievable. Dictated by Sai Alanis MD @ 06/20/2023 7:44:43 PM (Electronically Signed)
== END 2023-06-18 15:39 | disposition home or self-care (01) ==
LOC: CT 15:40
PROVIDERS: PCP Family Medicine; Visit Provider Internal Medicine
DX: R91.1 Solitary pulmonary nodule (principal)
CPT/HCPCS: 71250

== ENCOUNTER 2023-09-05 06:17 | Emergency (ER) | payer MEDICARE, SELFPAY ==
[2023-09-05 06:26] VITALS: BP 157/115; PULSE 87; RESP 16; TEMP 36.3; O2SAT 97; BMI 27.5
[2023-09-05 06:35] VITALS: BP 167/114; PULSE 82; RESP 16
--- NOTE | 2023-09-05 06:58 | ED_ITS ---
HPI - General Adult General Chief complaint: Headache/Migraine Stated complaint: migraine Time Seen by Provider: 09/05/23 06:57 History of Present Illness HPI narrative: Pt presents with headache for last three days. pt is deaf, declines asl interpretor . Pt states she has a history of migraines, usually can take her migraine medication and it helps. This time it isn't helping. Also c /o shoulder and neck tightness , nausea. 33-year-old woman presenting to the emergency department with concern of headache. Does have diagnosis of migraines. It sounds like tried Excedrin. Not helping. She says this is familiar for her migraines/headache pain. Had some pressure feeling in her right anterior deltoid upper arm area. Sense of tingling perhaps. No swelling. Apparently is wondering if this may have contributed to the headache. Feels a sore intense around the right shoulder and neck. No loss of sensation otherwise or swelling. No rashes. No fever. Is light sensitive. It sounds as though is having some nausea. Related Data Home Medications Medication Instructions Recorded Confirmed No Known Home Medications 08/16/23 08/16/23 Allergies Allergy/AdvReac Type Severity Reaction Status Date / Time Penicillins Allergy Mild Rash Verified 08/16/23 12:46 sulfamethoxazole Allergy Mild Rash Verified 08/16/23 12:46 [From Sulfamethoxazole-Trimethoprim] trimethoprim Allergy Mild Rash Verified 08/16/23 12:46 [From Sulfamethoxazole-Trimethoprim] latex Allergy Unknown uncertain, Verified 08/16/23 12:46 had a reaction to a balloon once, not since Review of Systems Status of ROS: Reports: 6 or more systems reviewed and unremarkable except as noted in History and below [facility] Medical History Hx of hematuria ?Z87.448 - Personal history of other diseases of urinary system (ICD-10) Scoliosis of lumbar spine ?M41.9 - Scoliosis, unspecified (ICD-10) Positive PAU (antinuclear antibody) ?R76.8 - Other specified abnormal immunological findings in serum (ICD-10) Polycystic ovary syndrome ?E28.2 - Polycystic ovarian syndrome (ICD-10) History of fatty infiltration of liver ?Z87.19 - Personal history of other diseases of the digestive system (ICD-10) Environmental allergies ?Z91.09 - Other allergy status, other than to drugs and biological substances (ICD-10) Essential hypertension ?I10 - Essential (primary) hypertension (ICD-10) Hearing impaired ?H91.90 - Unspecified hearing loss, unspecified ear (ICD-10) Hyperlipidemia ?E78.5 - Hyperlipidemia, unspecified (ICD-10) Asthma ?J45.909 - Unspecified asthma, uncomplicated (ICD-10) Depression ?F32.A - Depression, unspecified (ICD-10) History of delivery, currently ?O09.899 - Supervision of other high risk pregnancies, unspecified trimester (ICD-10) Surgical History Hx of cystoscopy ?Z98.890 - Other specified postprocedural states (ICD-10) History of colposcopy ?Z98.890 - Other specified postprocedural states (ICD-10) Hx of cholecystectomy ?Z90.49 - Acquired absence of other specified parts of digestive tract (ICD- 10) History of bunionectomy ?Z98.890 - Other specified postprocedural states (ICD-10) Hx of hernia repair ?Z98.890 - Other specified postprocedural states (ICD-10) ?Z87.19 - Personal history of other diseases of the digestive system (ICD-10) Family History Other Cancer High blood pressure Multiple sclerosis Social History What is your current living situation?: I presently have a place to live Problems where you live: pests, such as bugs, ants, or mice and carbon monoxide detectors missing or not working In the past 12 months, utilities in danger of being shut off: no In past 12 months, lack of transportation kept you from medical appts, meetings, work, or getting things needed for daily living: no In the past 12 mos, have been you worried that your food would run out before you had money to buy more?: never true In the past 12 mos, the food you bought just didn't last and you didn't have money to buy more?: never true Smoking Status: Never smoker Do you use any of these nicotine containing products: None Second hand tobacco smoke exposure: No How often do you have a drink containing alcohol: monthly or less How many standard drinks containing alcohol do you have on a typical day: 1 or 2 AUDIT-C Alcohol total score: 1 Non-prescribed substance use: marijuana (any form) How often does anyone, including family, friends and others, physically hurt you : never How often does anyone, including family, friends and others, insult or talk down to you: fairly often How often does anyone, including family, friends and others, threaten you with harm: never How often does anyone, including family, friends and others, scream or curse at you: never Little interest or pleasure in doing things: more than half the days Feeling down, depressed, or hopeless: more than half the days service: No Exam Narrative: Exam Narrative: Resting in dimmed room when I come in. Affected speech consistent with deafness. Skin is warm and dry without apparent rash. She is well-perfused. Breathing easily. Cranial nerves 2-12 look to be intact. Moving all extremities without difficulty. She is sore and tense to palpation through the trapezial musculature and the rhomboids and paracervical musculature right greater than left. No facial swelling or erythema. Heart in regular rate and rhythm. Lungs are clear. Tends to be rubbing the right side of her head and neck. Const: Vital Signs, click to edit/add: Vital Signs - 24 hr 09/05/23 06:26 09/05/23 06:35 Temperature 97.3 F L Pulse Rate [Pulse Oximeter] 87 82 Respiratory Rate 16 16 Blood Pressure [Le ft Upper Arm] 157/115 H 167/114 H Pulse Oximetry 97 Oxygen Delivery Me thod Room Air Documenting provider has reviewed patient's vital signs: yes Course Vital Signs Vital signs: Initial Vital Signs Temperature 97.3 F L 09/05/23 06:26 Temperature Source Temporal Artery Scan 09/05/23 06:26 Pulse Rate 87 09/05/23 06:26 Pulse Rhythm Regular 09/05/23 06:26 Respiratory Rate 16 09/05/23 06:26 Blood Pressure 157/115 H 09/05/23 06:26 Blood Pressure Mean 129 H 09/05/23 06:26 Blood Pressure Position Sitting 09/05/23 06:26 Pulse Oximetry 97 09/05/23 06:26 Oxygen Delivery Method Room Air 09/05/23 06:26 Vital Signs Temperature 97.3 F L 09/05/23 06:26 Pulse Rate 87 09/05/23 06:26 Respiratory Rate 16 09/05/23 06:26 Blood Pressure 157/115 H 09/05/23 06:26 Pulse Oximetry 97 09/05/23 06:26 Oxygen Delivery Method Room Air 09/05/23 06:26 Temperature 97.3 F L 09/05/23 06:26 Pulse Rate 82 09/05/23 06:35 Respiratory Rate 16 09/05/23 06:35 Blood Pressure 167/114 H 09/05/23 06:35 Pulse Oximetry 97 09/05/23 06:26 Oxygen Delivery Method Room Air 09/05/23 06:26 Medications Administered Medications: Discontinued Medications Generic Name Dose Route Start Last Admin Trade Name Freq PRN Reason Stop Dose Admin Sodium Chloride 1,000 mls @ 1,000 mls/hr 09/05/23 07:18 09/05/23 08:07 0.9 % Sodium Chloride 1000 Ml IV 09/05/23 08:17 Infused .Q1H ONE Infusion Ketorolac Tromethamine 15 mg 09/05/23 07:18 09/05/23 07:31 Ketorolac 15 Mg/Ml Inj IVP 09/05/23 07:19 15 mg ONCE ONE Administration Ondansetron HCl 4 mg 09/05/23 07:18 09/05/23 07:31 Ondansetron 2 Mg/Ml Inj IVP 09/05/23 07:19 4 mg ONCE ONE Administration Medical Decision Making MDM Narrative Medical decision making narrative: Does appear to have only symptom tension triggered headache/migraine. IV is already been initiated by nursing here and she is receiving L normal saline. Communication is via writing to one another. She agrees to proceed with ketorolac and Zofran. Would also offer ice pack. Discussed stretches for the upper back and neck. Does not seem to have symptoms consistent or to the degree that I would think all might be meningitis. Does not seem to be exacerbated or brought about by sinus symptoms at this time. Pending reassessment. On reassessment still noting pain. Is rubbing the right side of her neck. With further questioning reveals that she has been having some tension in this area for some time. Actually has ENT appointment tomorrow. It is this area of pain seems to be radiating into her head. Perhaps a soft collar would be beneficial to allow for some muscle relaxation. Since she will be driving home I do not have many more options for medications that would be sedating and so we opt for outpatient management. She thinks ?muscle relaxers? would be helpful. See patient discharge plan for further discussion Lab Data Labs: Lab Results 09/05/23 Range/Units 07:54 Urine Color Light yellow (Yellow) Urine Appearance Clear (Clear) Urine pH 6.5 (5.0-8.5) Ur Specific [place] 1.010 (1.000-1.030) Urine Protein Negative (Negative) Urine Glucose (UA) Negative (Negative) Urine Ketones Negative (Negative) Urine Blood 1+ A (Negative) Urine Nitrite Negative (Negative) Urine Bilirubin Negative (Negative) Urine Urobilinogen 0.2 (0.2-1.0) Ur Leukocyte Esterase Negative (Negative) Urine RBC 2-5 A (0-2) Urine WBC 0-2 (0-5) Ur Squamous Epith Cells Few (None-Few) Urine Bacteria Few A (None) Discharge Plan Discharge Clinical Impression: Headache, Muscle tension pain Patient Disposition: Home, Self-Care Condition: Stable Instructions: Acute Headache (DC) Additional Instructions: Stay well-hydrated Can wear soft collar for comfort over this next week. Can take up to 800 mg of ibuprofen up to 1000 mg of acetaminophen per dose. Alternative to the ibuprofen might be up to 500 mg of naproxen 2 times daily. Supplying Flexeril from [facility]. Hopefully ENT can help you sort this out this next week. Please excuse me if this was your plan but I do think it would be helpful for you use a design sales consultant at that visit. See handout on upper back and neck stretches. Might be helpful to do these elmer calloway Prescriptions: No Action No Known Home Medications Follow Up/Referrals: Yanick Valle MD [Primary Care Provider] - Stand Alone Forms: [employer] Info Instructions
[2023-09-05] MEDS: 0.9 % SODIUM CHLORIDE 1000 ml 1,000 ML IV (07:00)
--- NOTE | 2023-09-05 07:18 | PC.NURSE ---
up to bathroom.
--- OUTSIDE RECORDS SUMMARY | 2023-09-05 07:27 | XMS_ITS | Clinical Summary ---
Author Name Unknown Organization [facility] Address [address] [place] [address] Care Team Providers Care Retoucher Photoengraving Name Role Phone Elsewhere, Pcp Primary Care Provider Unavailabl e Source Comments Patient records contain information from all sites at [facility]. For routine questions regarding patient records, call [phone] during business hours, M-F 8:00 AM - 5:00 PM Central Time. Record requests for emergency care only can be directed to [phone] at any time.[facility] Allergies Active Allergy Reactions Criticality Noted Date Comments Latex Other (see comments) 01/04/2008 Possible reaction, not confirmed Penicillins Hives (Reselect Reaction),Other (see comments) 01/04/2008 Sulfa (Sulfonamide Antibiotics) Other (see comments) 11/12/2009 Unknown reaction Medications Medication Sig Dispensed Refills Start Date End Date Status [id number] (VINATE ONE) 60 mg iron-1 mg per tablet Take 1 tablet by mouth daily. Active cholecalciferol, vitamin D3, (cholecalciferol) 1,000 Unit tablet Take 1 tablet (1,000 Units total) by mouth daily. 60 tablet 3 12/13/2019 Active Additional Information Patient not taking.Reported on 01/30/2020 alcohol swabs pads, medicated Use as needed for diabetes control 1500 each 3 12/14/2019 Active Additional Information Patient not taking.Reported on 01/30/2020 blood sugar diagnostic strips 4 test daily. 120 test 11 12/14/2019 Active Additional Information Patient not taking.Reported on 01/30/2020 blood-glucose meter misc Test as directed for gestational diabetes. 1 each 12/14/2019 Active Additional Information Patient not taking.Reported on 01/30/2020 blood glucose ctl high,nml,low solution Glucose control solution provides an easy way to ensure accurate blood glucose testing. 1 each 12/14/2019 Active Additional Information Patient not taking.Reported on 01/30/2020 acetaminophen (TYLENOL) 500 mg tablet Take 1,000 mg by mouth as needed. 01/26/2020 Active breast pump device Electric breast pump for home use. Gestation age at delivery: 35 weeks. Reason for need: lactating. Length of need: 12 months 01/26/2020 Active ibuprofen (ADVIL,MOTRIN) 600 mg tablet Take 600 mg by mouth as needed. 01/26/2020 Active sennosides (SENOKOT) 8.6 mg tablet Take 8.6-17.2 mg by mouth. 01/26/2020 Active predniSONE (DELTASONE) 20 mg tablet Take 2 tablets (40 mg total) by mouth daily for 14 days, THEN 1.5 tablets (30 mg total) daily for 14 days, THEN 1 tablet (20 mg total) daily for 28 days, THEN 0.5 tablets (10 mg total) daily for 14 days. 84 tablet 07/06/2023 09/14/2023 Active atovaquone (MEPRON) 750 mg/5 mL suspension Take 10 mL (1,500 mg total) by mouth daily with breakfast. 1000 mL 07/06/2023 10/14/2023 Active budesonide (Pulmicort) 0.5 mg/2 mL nebulizer solution Mix 1 ampule in sinus irrigation bottle and irrigate twice daily. 360 mL 3 08/23/2023 Active Active Problems Patient Care Coordination No te Formatting of this note migh t be different from the original. OB education completed. Pre-reg completed at [facility]. LMP:05/18/2019 EDC:02/22/2020 [place] provider:Dr. Hampton FOKyle involved:, Jaxson Problem Noted Date Diagnosed Date Diabetes Mellitus Gestational 12/27/19 20 High Risk History Labor 2019 Hypertension Essential Primary 08/28/2019 Encounter For Supervision Of Other Normal Unspecified Trimester 07/04/2019 Pain Pelvic Female 03/21/2018 Pain Back 12/16/2017 Pain Cervical 12/16/2017 Scoliosis 12/16/2017 Fatty Liver 01/13/2017 Overview: Overview: noted on ULTRASOUND 12/2016 Hypertension 12/24/2016 Other Allergy Status Other T lynn To Drugs And Biological Substances 07/04/2012 Polycystic Ovary Syndrome 08/18/2010 Loss Hearing Sensorineural Bilateral 11/21/2009 Resolved Problems Problem Noted Date Diagnosed Date Resolved Date Elevated Glucose Tolerance Test 12/06/2019 12/27/2019 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 Encounters Date Type Department Care Team Description 09/01/2023 Orders Only Department of Otorhinolaryngology in [place], [place] [address] [place] [phone] Estephania Linda, RMarek 08/27/2023 Orders Only Division of Pulmonary Medicine in [place], [place] [address] [place] [phone] Krishan Jeffrey, M.B.B.S. Nodules Pulmonary Multiple 07/16/2023 10:10 AM PIE CHEF Ancillary Procedure Department of Otorhinolaryngology 07/16/2023 10:00 AM PIE CHEF Comprehensive Visit Department of Otorhinolaryngology in [place], [place] [address] [place] [phone] Maxwell Sanchez, CINTHIA, C.N.P., M.S.N. Congestion Sinus (Primary Dx); Nodules Pulmonary Multiple; Drip Post Nasal 07/16/2023 8:46 AM PIE CHEF - 07/16/2023 11:59 PM PIE CHEF Hospital Encounter Department of Laboratory Medicine and Pathology, [facility], in [place], [place] [address] [place] [phone] Celestino Hudson M.B.B.S. Nodules Pulmonary Multiple Discharge Disposition: Home or Self Care 07/07/2023 Clinical Communication Division of Pulmonary Medicine in [place], [place] [address] [place] [address] Celestino Hudson, M.B.B.S. 07/05/2023 Clinical Communication Division of Pulmonary Medicine in [place], [place] [address] [place] [phone] Celestino Hudson, M.B.B.S. Follow-up Orders 07/04/2023 Orders Only Division of Pulmonary Medicine in [place], [place] [address] [place] [address] Celestino Hudson, M.B.B.S. Nodules Pulmonary Multiple (Primary Dx) 07/04/2023 Clinical Communication Division of Pulmonary Medicine in [place], [place] [address] [place] [phone] Celestino Hudson, M.B.B.S. 07/04/2023 Documentation Division of Pulmonary Medicine in [place], [place] [address] [place] [phone] Celestino Hudson, M.B.B.S. 07/04/2023 Orders Only Division of Pulmonary Medicine in [place], [place] [address] [place] [phone] Celestino Hudson, M.B.B.S. Nodules Pulmonary Multiple (Primary Dx) 07/04/2023 Orders Only Division of Pulmonary Medicine in [place], [place] [address] [place] [address] Celestino Hudson, M.B.B.S. Nodules Pulmonary Multiple (Primary Dx) 07/04/2023 Orders Only Division of Pulmonary Medicine in [place], [place] [address] [place] [phone] Celestino Hudson, M.B.B.S. Nodules Pulmonary Multiple (Primary Dx) 07/03/2023 Orders Only Division of Pulmonary Medicine in [place], [place] [address] [place] [phone] Celestino Hudson, M.B.B.S. Nodules Pulmonary Multiple (Primary Dx) 07/02/2023 12:42 PM PIE CHEF - 07/02/2023 11:59 PM PIE CHEF Hospital Encounter Department of Radiology, [facility], in [place], [place] [address] [place] [phone] Celestino Hudson M.B.B.S. Nodules Pulmonary Multiple Discharge Disposition: Home or Self Care 06/29/2023 3:00 PM PIE CHEF Comprehensive Visit Division of Pulmonary Medicine in [place], [place] [address] [place] [phone] Krishan Jeffrey M.B.B.SJair Nodules Pulmonary Multiple (Primary Dx) 06/29/2023 9:54 AM PIE CHEF - 06/29/2023 11:59 PM PIE CHEF Hospital Encounter Department of Laboratory Medicine and Pathology, [facility], in [place], [place] [address] [place] [phone] Krishan Jeffrey M.B.B.SJair Lung Interstitial Disease (HCC) Discharge Disposition: Home or Self Care 06/28/2023 3:15 PM PIE CHEF Clinical Communication Virtual Review in [place], [place] [address] [place] [phone] Pre-visit Intake 06/26/2023 10:30 PM PIE CHEF Ancillary Procedure Department of Radiology in [address] [phone] Celestino Hudson M.B.B.S. Dyspnea On Exertion 06/26/2023 Orders Only Division of Pulmonary Medicine in [address] [phone] Celestino Hudson M.B.B.S. Nodule Pulmonary (Primary Dx) 06/26/2023 Orders Only Division of Pulmonary Medicine in [address] [phone] Celestino Hudson M.B.B.S. Dyspnea On Exertion (Primary Dx) 06/24/2023 Clinical Communication Division of Pulmonary Medicine in [address] [phone] Krishan Jeffrey M.B.B.S. OSM - Outside Materials 06/23/2023 Clinical Communication Division of Pulmonary Medicine in [address] [phone] Krishan Jeffery M.B.BJairS. Pre-visit Testing Orders from Last 3 Months Immunizations Name Administration Dates Next Due 4vHPV (discontinued) 10/17/2010,08/18/2010 DTP 12/05/1993, 1,1988,1988,1988 HepA Adult 09/12/2010 HepA Pediatric/Adolescent 02/25/2001 HepB Adult 06/08/2001,11/10/2000,09/27/2000 Hib (HbOC) (discontinued) 10/05/1990 Influenza TIV (IM) 03/13/2013 Influenza, Seasonal, Injectable 03/13/2013 Influenza, Unspecified 01/13/2017,2015,02/28/2015,2013,03/13/2013 MMR 11/17/1999,07/29/1989 OPV 12/05/1993, 1,1988,1988,1988 Td (Adult), adsorbed 11/17/1999 Td Preservative Free (TENIVA C, DECAVAC) 11/17/1999 Td, (Adult) Unspecified 11/17/1999 Tdap 12/06/2019,09/12/2010 TyVi (inj) 02/25/2001 BRUNO 08/30/2000 YF 02/25/2001 influenza vaccine (FLUBLOK) (18 years or older) (PF) 01/12/2014 influenza vaccine quad (FLUZONE/FLUARIX) (6 months and older)(PF) 01/13/2017,01/23/2016,02/28/2015 Social History Tobacco Use Types Packs/Day Years Used Date Smoking Tobacco: Never Smokeless Tobacco: Never Tobacco Cessation:Counseling Given: No Alcohol Use Standard Drinks/Week Comments No 0 (1 standard drink = 0.6 oz pur e alcohol) [facility] Utilities Answer Date Recorded In the past 12 months has th e [employer], gas, oil, or water [employer] threatened to shut off services in your home? No 06/28/2023 Humiliation, Afraid, Rape, and Kick questionnair e Answer Date Recorded Within the last year, have y ou been afraid of your partner or ex-partner? No 07/01/2019 Within the last year, have y ou been humiliated or emotionally abused in other ways by your partner or ex-partner? No Within the last year, have y ou been kicked, hit, slapped, or otherwise physically hurt by your partner or ex-partner? No 07/01/2019 Within the last year, have y ou been raped or forced to have any kind of sexual activity by your partner or ex-partner? No 07/01/2019 Social Connection and Isolat ion Panel [NHANES] Answer Date Recorded In a typical week, how many times do you talk on the phone with family, friends, or neighbors? More than three times a week 07/01/2019 How often do you get togethe r with friends or relatives? Twice a week 07/01/2019 How often do you attend chur ch or mosque services? 1 to 4 times per year 07/01/2019 Do you belong to any clubs o r organizations such as jewish groups, unions, fraternal or athletic groups, or school groups? No 07/01/2019 How often do you attend meet ings of the clubs or organizations you belong to? Never 07/01/2019 Are you , , di vorced, , never , or living with a partner? 07/01/2019 AUDIT-C Answer Date Recorded Q1: How often do you have a drink containing alc ohol? Monthly or less 07/01/2019 Q2: How many drinks containi ng alcohol do you have on a typical day when you are drinking? 1 or 2 07/01/2019 Q3: How often do you have si x or more drinks on one occasion? Never 07/01/2019 Overall Financial Resource Strain (CARDIA) Answe r Date Recorded How hard is it for you to pa y for the very basics like food, housing, medical care, and heating? Not hard at all 07/01/2019 PHQ-2 Answer Date Recorded PHQ-2 Score 1 12/06/2019 [facility] of Occupat ional Health - Occupational Stress Questionnaire Answer Date Recorded Do you feel stress - tense, restless, nervous, or anxious, or unable to sleep at night because your mind is troubled all the time - these days? Only a little 07/01/2019 Exercise Vital Sign Answer Date Recorde d On average, how many days pe r week do you engage in moderate to strenuous exercise (like a brisk walk)? 4 days 06/28/2023 On average, how many minutes do you engage in exercise at this level? 40 min 06/28/2023 Hunger Vital Sign Answer Date Recorded Within the past 12 months, y ou worried that your food would run out before you got the money to buy more. Never true 06/28/19 Within the past 12 months, t he food you bought just didn't last and you didn't have money to get more. Never true 06/28/2023 PRAPARE - Transportation Answer Date Re corded In the past 12 months, has l ack of transportation kept you from medical appointments or from getting medications? No 06/17 In the past 12 months, has l ack of transportation kept you from meetings, work, or from getting things needed for daily living? No 06/28/2023 Depression Answer Date Recor ded PHQ-9 Total Score (max 27) 5 12/05 Nutrition Answer Date Recorded Nutrition: EVOO Fat Source Unknown 06/28 On average, how many serving s of fruits and vegetables do you eat per day (serving size is equal to 1 cup or approximately the size of a tennis ball)? 3-5 06/28/2023 Dental Answer Date Recorded Dental: Regular Dentist Yes 06/28/19 Employment Answer Date Recorded Employment status Unemployed/not in e paid workforce and NOT seeking employment 06/28/2023 Housing Stability Answer Date Recorded What is your living situation today? I have a [facility] place to live 06/28/2023 Education Answer Date Recorded What is the highest level of school you have completed or the highest degree you have received? GED or equivalent Sex and Gender Information Value Date Recorded Sex Assigned at Female 06/28/2023 7:21 PM PIE CHEF Gender Identity Female 07/01/2019 7:57 PM PIE CHEF Sexual Orientation Straight 07/01/2019 7: 57 PM PIE CHEF Last Filed Vital Signs Vital Sign Reading Time Taken Comments Blood Pressure 151/107 06/29/2023 2:55 PM PIE CHEF Pulse 113 06/29/2023 2:55 PM PIE CHEF Temperature 36.6 ??C (97.8 ??F) 06/29/2023 2:55 PM CS T Respiratory Rate 16 05/19/2019 11:20 AM PIE CHEF Oxygen Saturation 96% 06/29/2023 2:55 PM PIE CHEF Inhaled Oxygen Concentration - - Weight 75.5 kg (166 lb 7.2 oz) 06/29/2023 2:55 P M PIE CHEF Height 163.9 cm (5' 4.53) 06/29/2023 2:55 PM CS T Body Mass Index 28.11 06/29/2023 2:55 PM PIE CHEF Plan of Treatment Upcoming Encounters Date Type Department Care Team (Late st Contact Info) Description 09/06/2023 1:30 PM CDT Office Visit Department of Otorhinolaryngology in [place], [place] [address] [place] [phone] Scotty Robledo P.A.-C., M.S. [address] [place] [phone] Health Maintenance Due Date Last Done Comments HIV Screening 1988 Hepatitis C Screening 1988 Pneumococcal vaccine (0-64 y ears) (1 of 2 - PCV) 1994 Cervical Cancer Screening 05/16/2022 05/16/2019 COVID-19 Vaccine (4 - 2022-2 4 season) 2023 04/07/2022, 02/26/2021, 02/05/2021 Influenza Vaccine (#1) 2023 , 08/22/2021, 03/17/2019, Additional history exists Depression Screening (Annual PHQ-2) 05/17/2023 Office Visit for Blood Press ure Check / Re-check 09/27/2023 06/29/2023 Lipid (Cholesterol) Screening 05/16/2024, 05/13/2018, 09/16/2015 DTaP,Tdap,and Td Vaccines (9 - Td or Tdap) 06/23/2031 06/23/2021, 12/06/2019, 09/12/2010, Additional history exists Hepatitis B Vaccines Completed 06/08/2001, 11/10/2000, 09/27/2000 Hepatitis A Vaccines Completed 09/12/2010, 02/26/20 HPV Vaccines Completed 07/13/2012, 0607/2010, 10/17/2010, Additional history exists Procedures Procedure Name Priority Date/Time Associated Diagnosis Comments OTORHINOLARYNGOLOGY IMAGE EXAM Routine 07/16/2023 10:10 AM PIE CHEF COMPLEMENT C4, S Routine 07/16/2023 9:02 AM PIE CHEF Nodules Pulmonary Multiple COMPL C3, S Routine 07/16/2023 9:02 AM PIE CHEF Nodules Pulmonary Multiple GLOMERULAR BASEMENT MEMBRANE, ABS, IGG, S Routine 07/16/2023 9:02 AM PIE CHEF Nodules Pulmonary Multiple CRYOGLOBULIN, S Routine 07/16/2023 9:02 AM PIE CHEF Nodules Pulmonary Multiple CT SINUSES WITHOUT IV CONTRAST RAD - Routine (most inpatients and all outpatients) 07/02/2023 1:20 PM PIE CHEF Nodules Pulmonary Multiple ECG Routine 07/02/2023 12:30 PM PIE CHEF Nodules Pulmonary Multiple DIPSTICK, U Routine 06/29/2023 4:55 PM PIE CHEF LA OSMOLALITY ASSAY URINE Routine 06/29/2023 4:55 PM PIE CHEF PH, RANDOM, U Routine 06/29/2023 4:55 PM PIE CHEF MICROSCOPIC MANUAL Routine 06/29/2023 4:55 PM PIE CHEF URINALYSIS WITH MICROSCOPIC Routine 06/29/2023 4:55 PM PIE CHEF Nodules Pulmonary Multiple HISTOPLASMA AG, QUANT EIA, U Routine 06/29/2023 4:55 PM PIE CHEF Nodules Pulmonary Multiple ANCA VASCULITIS PANEL, S Routine 024 4:49 PM PIE CHEF Nodules Pulmonary Multiple MYOMARKER 3 PLUS PROFILE Routine 024 4:49 PM PIE CHEF Nodules Pulmonary Multiple CYCLIC CITRULLINATED PEPTIDE ABS, IGG, S Routine 06/29/2023 4:49 PM PIE CHEF Nodules Pulmonary Multiple ANTINUCLEAR AB, HEP-2, SUBSTRATE, S Routine 06/29/2023 4:49 PM PIE CHEF Nodules Pulmonary Multiple AB TO EXTRACTABLE NUCLEAR AG EVAL, S Routine 06/29/2023 4:49 PM PIE CHEF Nodules Pulmonary Multiple HISTOPLASMA AB Routine 06/29/2023 4:49 PM PIE CHEF Nodules Pulmonary Multiple QUANTIFERON-TB GOLD PLUS, B Routine 06/29/2023 4:49 PM PIE CHEF Nodules Pulmonary Multiple PULMONARY FUNCTION TESTS Routine 10:36 AM PIE CHEF Lung Interstitial Disease (HCC) COMPREHENSIVE METABOLIC PANEL, S/P Routine 06/29/2023 10:08 AM PIE CHEF Lung Interstitial Disease (HCC) CBC WITH DIFFERENTIAL, B Routine 024 10:08 AM PIE CHEF Lung Interstitial Disease (HCC) C-REACTIVE PROTEIN (CRP), S/P Routine 06/29/2023 10:04 AM PIE CHEF Nodules Pulmonary Multiple INTERPRETATION OF OUTSIDE CT CHEST RAD - Routine (most inpatients and all outpatients) 06/27/2023 5:59 AM PIE CHEF Dyspnea On Exertion OUTSIDE CT BODY Routine 06/18/2023 4:10 PM PIE CHEF EXTI LIPID PANEL, S Routine 05/16/2019 11:40 AM PIE CHEF from Last 3 Months or Most Recently Relevant to Health Maintenance Results * Nasal Endoscopy-Otorhinolaryngology Image Exam (07/16/2023 10:10 AM PIE CHEF) 07/16/2023 10:0 9 AM PIE CHEF Narrative IIMS - 07/16/2023 10:40 AM PIE CHEF This order has been created and auto-finalized to support the import of images acquired without order. The clinical documentation to support these images can be found on the encounter that produced images. Provider Not In System IMG NON RAD IMAGI NG PROCEDURES Performing Organization Address City/[facility] Co de Phone Number [facility]S NA * Glomerular Basement Membrane Antibodies, IgG (07/16/2023 9:02 AM PIE CHEF) [facility] Glomerular Basement Membrane IgG Ab <0.2 <1.0 (Negative) U 07/16/2023 2:46 PM PIE CHEF [facility] Blood (Blood, Venous) 07/16/2023 9:02 AM PIE CHEF 07/16/2023 12:50 PM PIE CHEF Celestino PorrasB.B.S. LAB BLOOD ADD-ON Performing Organization Address [facility] de Phone Number [facility] [address] [place] [address] [facility] [address] [place] [address] * Cryoglobulin (07/16/2023 9:02 AM PIE CHEF) [facility] Cryoglobulin , S Negative. This test is negative at 24 hours. All samples are held and reviewed again at 7 days. If delayed precipitation occurs after 7 days, Immunofixation will be performed and an additional report will follow. Negative %ppt 07/19/2023 11:48 AM PIE CHEF [facility] Blood (Blood, Venous) 07/16/2023 9:02 AM PIE CHEF 07/16/2023 1:31 PM PIE CHEF Celestino PorrasB.B.S. LAB BLOOD NON ADD -ON Performing Organization Address [facility] Co de Phone Number [facility] [address] [place] [address] [facility] [address] [place] [address] [place] [address] * Complement C3 (07/16/2023 9:02 AM PIE CHEF) Complement C3, S 157 75 - 175 mg/dL 07/16/2023 2:52 PM PIE CHEF [facility] Blood (Blood, Venous) 07/16/2023 9:02 AM PIE CHEF 07/16/2023 1:31 PM PIE CHEF Celestino Hudson M.B.B.S. LAB BLOOD ADD-ON Performing Organization Address [facility]/ZIP Co de Phone Number [facility] [address] [place] [address] [facility] [address] [place] [address] * Complement C4 (07/16/2023 9:02 AM PIE CHEF) Pathologist [facility] Complement C4, S 35 14 - 40 mg/dL 07/16/2023 2:52 PM PIE CHEF [facility] Blood (Blood, Venous) 07/16/2023 9:02 AM PIE CHEF 07/16/2023 1:31 PM PIE CHEF Celestino PorrasB.B.S. LAB BLOOD ADD-ON Performing Organization Address City/[facility] Co de Phone Number [facility] [address] [place] [address] [place] [address] * CT Sinuses without IV Contrast (07/02/2023 1:20 PM PIE CHEF) Anatomical Region Laterality Modality Head, Neuroradiology RST [facility] , Neuroradiology ARZ [facility], Neuroradiology FLA [facility] N/A Computed Tomography, Compute d Tomography Impressions 07/02/2023 2:36 PM PIE CHEF Acute paranasal sinus inflammation, most prominently involving the bilateral maxillary sinuses and sinus outlets as described. Narrative 07/02/2023 2:36 PM PIE CHEF EXAM: CT SINUSES WITHOUT IV CONTRAST COMPARISON: None available FINDINGS: Advanced paranasal sinus disease, most severe in the bilateral maxillary and anterior left ethmoid sinus. Near complete opacification of the left maxillary sinus with frothy/bubbly secretions. Substantial mucosal filling of the right maxillary sinus with air-fluid level. There is mucosal obstruction of the bilateral maxillary sinus drainage pathways and the left frontal sinus drainage pathway. The right frontoethmoidal recess, bilateral sphenoethmoidal recesses and sphenoid ostia are patent. Mild scattered mucoperiosteal thickening within the inferior left frontal sinus, right ethmoidal air cells and left sphenoid sinus. No hyperostosis. No periapical lucency. Rightward deviation of the nasal septum with bony spurring. Mastoid air cells are well aerated. Retroantral fat plane appears preserved. Visualized intracranial contents within normal limits. Procedure Note Maribell Mckeon M.D. - 07/02/2023 EXAM: CT SINUSES WITHOUT IV CONTRAST COMPARISON: None available FINDINGS: Advanced paranasal sinus disease, most severe in the bilateralmaxillary and anterior left ethmoid sinus. Near complete opacification ofthe left maxillary sinus with frothy/bubbly secretions. Substantialmucosal filling of the right maxillary sinus with air-fluid level. There is mucosal obstruction of the bilateralmaxillary sinus drainage pathways and the left frontal sinus drainagepathway. The right frontoethmoidal recess, bilateral sphenoethmoidalrecesses and sphenoid ostia are patent. Mild scattered mucoperiosteal thickening within the inferior left frontalsinus, right ethmoidal air cells and left sphenoid sinus. No hyperostosis.No periapical lucency. Rightward deviation of the nasal septum with bony spurring. Mastoid aircells are well aerated. Retroantral fat plane appears preserved.Visualized intracranial contents within normal limits. IMPRESSION: Acute paranasal sinus inflammation, most prominently involving thebilateral maxillary sinuses and sinus outlets as described. Celestino PaulsonSJair IMG CT PROCEDURES * ECG 12 Lead (07/02/2023 12:30 PM PIE CHEF) Ventricular Rate ECG/Min 88 BPM MUSE LA Interval 148 ms MUSE QRSD Interval 88 ms MUSE QT Interval 374 ms MUSE QTC Interval 452 ms MUSE P [place] 32 degrees MUSE R [place] 1 degrees MUSE T Wave [place] 22 degrees MUSE 07/02/2023 12:3 0 PM PIE CHEF 07/02/2023 12:50 PM PIE CHEF Impressions MUSE - 07/02/2023 12:50 PM PIE CHEF Normal sinus rhythm Moderate voltage criteria for LVH, may be normal variant No previous ECGs available Reviewed by MARY Hightower Narrative Procedure Note Giovanni Suero Jr., M.D. - 07/02/2023 IMPRESSION: Normal sinus rhythm Moderate voltage criteria for LVH, may be normal variant No previous ECGs available Reviewed by MARY Hightower Celestino JuarezB.S. ECG ORDERABLES MUSE NA * Histoplasma Antigen, Quantitative EIA, Urine (06/29/2023 4:55 PM PIE CHEF) [facility] Histoplasma Ag Result Not Detected Not Detected 06/30/2023 2:49 PM PIE CHEF [facility] Comment: No Histoplasma antigen detected. ?? False negative results may occur. ??Repeat testing on a new specimen should be considered if clinically indicated. ?? Histoplasma Ag Value Not Detected ng/mL 06/30/2023 2:49 PM PIE CHEF [facility] Comment: ----ADDITIONAL INFORMATION---- This test has been modified from the trailer technician's instructions. Its performance characteristics were determined by [facility] in a manner consistent with CLIA requirements. This test has not been cleared or approved by the U.S. Food and Drug Administration. Urine (Urine, Midstream) 06/29/2023 4:55 PM PIE CHEF 06/29/2023 7:54 PM PIE CHEF Celestino Her.B.B.S. LAB URINE ORDERAB LES [facility] [address] [place] [address] [facility] [address] [place] [address] * Osmolality, Urine (06/29/2023 4:55 PM PIE CHEF) [facility] Osmolality, U 688 150 - 1150 mOsm/kg 06/29/2023 8:11 PM PIE CHEF DTL Urine 06/29/2023 4:55 PM PIE CHEF 06/29/2023 5:06 PM PIE CHEF Celestino PorrasB.B.S. LAB URINE ORDERAB LES Performing Organization Address [facility] Co de Phone Number [facility] [address] [place] [address], [facility] [address] [place] [address] * (ABNORMAL) Dipstick, Urine (06/29/2023 4:55 PM PIE CHEF) Hemoglobin, QL, U Large(A) Negative 06/29/2023 5:32 PM PIE CHEF DTL Leukocyte Esterase, U Negative Negative 06/29/2023 5:32 PM PIE CHEF DTL Nitrite, U Negative Negative 06/29/2023 5:32 PM PIE CHEF DTL Ketone, U Negative Negative mg/dL 06/29/2023 5:32 PM PIE CHEF DTL Glucose, U Negative Negative mg/dL 06/29/2023 5:32 PM PIE CHEF DTL Urine 06/29/2023 4:55 PM PIE CHEF 06/29/2023 5:06 PM PIE CHEF Celestino PorrasB.B.S. LAB URINE ORDERAB LES Performing Organization Address [facility] Co de Phone Number [facility] [address] [place] [address], [facility] [address] [place] [address] * pH, Random, Urine (06/29/2023 4:55 PM PIE CHEF) pH, Random, U 6.7 4.5 - 8.0 06/29/2023 8:11 PM PIE CHEF DTL Urine 06/29/2023 4:55 PM PIE CHEF 06/29/2023 5:06 PM PIE CHEF Celestino PorrasB.B.S. LAB URINE ORDERAB LES Performing Organization Address City/[facility] Co de Phone Number [facility] [address] [place], [place] [phone] [place] [address] [address] * (ABNORMAL) Microscopic Manual (06/29/2023 4:55 PM PIE CHEF) Microscopy Abnormal 06/29/2023 7:34 PM PIE CHEF DTL RBC 31-40(A) <3 /hpf 06/29/2023 7:34 PM PIE CHEF DTL Dysmorphic RBC <25 <25 % 06/29/2023 7:34 PM PIE CHEF DTL WBC None Seen /hpf 06/29/2023 7:34 PM PIE CHEF DTL Comment: ----REFERENCE VALUE---- <4 ??(Males) <11 (Females) Squamous Epithelial Cells, U 4-10 /hpf 06/29/2023 7:34 PM PIE CHEF DTL Urine 06/29/2023 4:55 PM PIE CHEF 06/29/2023 5:06 PM PIE CHEF Celestino PaulsonSJair LAB URINE ORDERAB LES Performing Organization Address [facility] Co de Phone Number [facility] [address] [place], [place] [id number] [place] [phone] * (ABNORMAL) Urinalysis, with Microscopic: Urine, Midstream (06/29/2023 4:55 PM PIE CHEF) Source Midstream 06/29/2023 5:06 PM PIE CHEF DTL Color, U Yellow 06/29/2023 5:06 PM PIE CHEF DTL Clarity, U Cloudy(A) 06/29/2023 5:06 PM PIE CHEF DTL Protein, U 20 <26 mg/dL 06/29/2023 5:57 PM PIE CHEF DTL Protein/Osmola lity 0.29 <0.42 ratio 06/29/2023 8:11 PM PIE CHEF DTL Predicted 24 HR Protein, U 218 <229 mg/24 h 06/29/2023 8:11 PM PIE CHEF DTL Predicted Range 54-882 mg/24 h 06/29/2023 8:11 PM PIE CHEF DTL Urine (Urine, Midstream) 06/29/2023 4:55 PM PIE CHEF 06/29/2023 5:06 PM PIE CHEF Celestino Triana LAB URINE ORDERAB LES [facility] [address] [place] [address], [place] [facility]TNickl[facility] [address] [place] [address] * MyoMarker 3 Plus Profile - Sent Out Lab (06/29/2023 4:49 PM PIE CHEF) Anti-Hanny-1 Ab <20 <20 Units 07/17/2023 5:08 PM PIE CHEF ENDI Anti-PL-7 Ab Negative Negative 07/17/2023 5:08 PM PIE CHEF [facility] Comment: This test was developed and its performance characteristics determined by [facility]. It has not been cleared or approved by the Food and Drug Administration. Anti-PL-12 Ab Negative Negative 07/17/2023 5:08 PM PIE CHEF [facility]I Comment: This test was developed and its performance characteristics determined by [facility]. It has not been cleared or approved by the Food and Drug Administration. Anti-EJ Ab Negative Negative 07/17/2023 5:08 PM PIE CHEF [facility]I Comment: This test was developed and its performance characteristics determined by [facility]. It has not been cleared or approved by the Food and Drug Administration. Anti-OJ Ab Negative Negative 07/17/2023 5:08 PM PIE CHEF [facility] Comment: This test was developed and its performance characteristics determined by [facility]. It has not been cleared or approved by the Food and Drug Administration. Anti-SRP Ab Negative Negative 07/17/2023 5:08 PM PIE CHEF [facility]I Comment: This test was developed and its performance characteristics determined by [facility]. It has not been cleared or approved by the Food and Drug Administration. Jkrw-Ib-8-Ab Negative Negative 07/17/2023 5:08 PM PIE CHEF [facility] Comment: This test was developed and its performance characteristics determined by [facility]. It has not been cleared or approved by the Food and Drug Administration. Gnqn-FDD-3bsgqx Ab <20 <20 Units 2023 5:08 PM PIE CHEF [facility] Comment: This test was developed and its performance characteristics determined by [facility]. It has not been cleared or approved by the Food and Drug Administration. Anti-MDA-5 Ab (CADM-140) <20 <20 Units 07/17/2023 5:08 PM PIE CHEF [facility] Comment: This test was developed and its performance characteristics determined by [facility]. It has not been cleared or approved by the Food and Drug Administration. Anti-NXP-2 (P140) Ab <20 <20 Units 07/17/2023 5:08 PM PIE CHEF [facility]I Comment: This test was developed and its performance characteristics determined by [facility]. It has not been cleared or approved by the Food and Drug Administration. Anti-SAE1 Ab, IgG <20 <20 Units 024 5:08 PM PIE CHEF [facility] Comment: This test was developed and its performance characteristics determined by [facility]. It has not been cleared or approved by the Food and Drug Administration. Anti-PM/Scl-100 Ab <20 <20 Units 2023 5:08 PM PIE CHEF [facility] Comment: This test was developed and its performance characteristics determined by [facility]. It has not been cleared or approved by the Food and Drug Administration. Anti-Ku Ab Negative Negative 07/17/2023 5:08 PM PIE CHEF [facility] Comment: This test was developed and its performance characteristics determined by [facility]. It has not been cleared or approved by the Food and Drug Administration. Anti-SS-A 52kD Ab, IgG <20 <20 Units 07/17/2023 5:08 PM PIE CHEF [facility]I Comment: This test was developed and its performance characteristics determined by [facility]. It has not been cleared or approved by the Food and Drug Administration. Anti-U1 OPTICAL INSTRUMENT INSPECTOR Ab <20 <20 Units 07/17/2023 5:08 PM PIE CHEF ENDI Anti-U2 OPTICAL INSTRUMENT INSPECTOR Ab Negative Negative 07/17/2023 5:08 PM PIE CHEF [facility] Comment: This test was developed and its performance characteristics determined by [facility]. It has not been cleared or approved by the Food and Drug Administration. Anti-U3 OPTICAL INSTRUMENT INSPECTOR (Fibrillarin) Negative Negative 07/17/2023 5:08 PM PIE CHEF [facility] Comment: This test was developed and its performance characteristics determined by [facility]. It has not been cleared or approved by the Food and Drug Administration. ?Interpretation for Anti-Hanny-1, Xxrt-PQP-3phbkq, ?Anti-MDA-5, Anti-NXP-2, Anti-SAE1, Anti-PM/Scl-100, ?Anti-SS-A 52 kD, Anti-U1 OPTICAL INSTRUMENT INSPECTOR: ?Negative: ?<20 ?Weak Positive: ? 20 - 39 ?Moderate Positive: ? 40 - 80 ?Strong Positive: ? >80 ?. Blood (Blood, Venous) 06/29/2023 4:49 PM PIE CHEF 06/30/2023 7:31 AM PIE CHEF Celestino PaulsonSJair LAB BLOOD NON ADD -ON [facility] [address] [place] [address], [facility] ENDI [facility] [address] [place] [address] * (ABNORMAL) Antinuclear Antibodies, HEp-2 Substrate, IgG, Serum (06/29/2023 4:49 PM PIE CHEF) Antinuclear Ab, HEp-2 Substrate, S Positive 1:160(A) <1:80 (Negativ e) 06/30/2023 12:15 PM PIE CHEF [facility] Comment: ----ADDITIONAL INFORMATION---- Method: Immunofluorescence using HEp-2 cellular substrate. PAU Titer: 1:160 06/30/2023 12:15 PM PIE CHEF [facility] PAU Pattern: Speckled 06/30/2023 12:15 PM PIE CHEF [facility] Blood (Blood, Venous) 06/29/2023 4:49 PM PIE CHEF 06/29/2023 8:41 PM PIE CHEF Celestino Triana LAB BLOOD ADD-ON [facility] [address] [place] [address] [facility] [address] [place] [address] * QuantiFERON-Tb Gold Plus, Blood (06/29/2023 4:49 PM PIE CHEF) [facility] QuantiFERON-TB Gold Plus Result Negative Negative 06/30/2023 1:23 PM PIE CHEF [facility] Comment: No interferon-gamma response to M. tuberculosis antigens was detected. Latent infection with M. tuberculosis is unlikely. A single negative result does not exclude infection with M. tuberculosis. In patients at high risk for M.tuberculosis infection, a second test should be considered in accordance with the 2017 ATS/IDSA/CDC Clinical Practice Guidelines for Diagnosis of Tuberculosis in Adults and Children [Lewinsohn DM et. al. Clin. Infect. Dis. 2017;64(2):111-115]. The reference range for the 'TB1 Ag minus Nil Result' and 'TB2 Ag minus Nil Result' is an Interferon-gamma level <0.35 IU/mL. TB1 Ag minus Nil Result 0.02 IU/mL 06/30/2023 1:23 PM PIE CHEF [facility] TB2 Ag minus Nil Result 0.01 IU/mL 06/30/2023 1:23 PM PIE CHEF [facility] Mitogen minus Nil Result 9.98 IU/mL 06/30/2023 1:23 PM PIE CHEF [facility] Nil Result 0.02 IU/mL 06/30/2023 1:23 PM PIE CHEF [facility] Blood (Blood, Venous) 06/29/2023 4:49 PM PIE CHEF 06/29/2023 7:54 PM PIE CHEF Narrative [facility] - 06/30/2023 1:23 PM PIE CHEF Specimen Information: Specimen ID: [id number] Specimen Type: Blood Specimen Collection Start Date: 06/29/2023 ??4:49 PM Specimen Received Date: 06/29/2023 ??7:54 PM Specimen ID: [id number] Specimen Type: Blood Specimen Collection Start Date: 06/29/2023 ??4:49 PM Specimen Received Date: 06/29/2023 ??7:54 PM Specimen ID: [id number] Specimen Type: Blood Specimen Collection Start Date: 06/29/2023 ??4:49 PM Specimen Received Date: 06/29/2023 ??7:54 PM Specimen ID: [id number] Specimen Type: Blood Specimen Collection Start Date: 06/29/2023 ??4:49 PM Specimen Received Date: 06/29/2023 ??7:54 PM Celestino JuarezB.S. LAB MICROBIOLOGY - BLOOD ORDERABLES Performing Organization Address City/[facility]/ZIP Co de Phone Number [facility] [address] [place] [address] [place] [address] * ANCA (Antineutrophil Cytoplasmic Antibodies) Vasculitis Panel (06/29/2023 4:49 PM PIE CHEF) Myeloperoxidase Ab, S <0.2 <0.4 (Negative ) U 07/05/2023 4:28 PM [facility] (PR3), S <0.2 <0.4 (Negative ) U 07/05/2023 4:28 PM PIE CHEF [facility] Blood (Blood, Venous) 06/29/2023 4:49 PM PIE CHEF 07/05/2023 1:19 PM PIE CHEF Celestino JuarezB.S. LAB BLOOD ADD-ON Performing Organization Address City/[facility]/ZIP Co de Phone Number [facility] [address] [place] [address] [facility] [address] [place] [address] * Antibody to Extractable Nuclear Antigen Evaluation (06/29/2023 4:49 PM PIE CHEF) SS-A/Ro Ab, IgG, S <0.2 <1.0 (Negative) U 06/29/2023 9:06 PM PIE CHEF [facility] SS-B/La Ab, IgG, S <0.2 <1.0 (Negative) U 06/29/2023 9:06 PM PIE CHEF [facility] Sm Ab, IgG, S <0.2 <1.0 (Negative) U 06/29/2023 9:06 PM PIE CHEF [facility] OPTICAL INSTRUMENT INSPECTOR Ab, IgG, S <0.2 <1.0 (Negative) U 06/29/2023 9:06 PM PIE CHEF [facility] Scl 70 Ab, IgG, S <0.2 <1.0 (Negative) U 06/29/2023 9:06 PM PIE CHEF [facility] Hanny 1 Ab, IgG, S <0.2 <1.0 (Negative) U 06/29/2023 9:06 PM PIE CHEF [facility] Blood (Blood, Venous) 06/29/2023 4:49 PM PIE CHEF 06/29/2023 7:52 PM PIE CHEF Celestino Hudson M.B.B.S. LAB BLOOD ADD-ON [facility] [address] [place] [address] [facility] [address] [place] [address] * Cyclic Citrullinated Peptide Antibodies, IgG (06/29/2023 4:49 PM PIE CHEF) Cyclic Citrullinated Peptide Ab, S <15.6 <20.0 (Negative) U 06/30/2023 10:35 AM PIE CHEF SDS Blood (Blood, Venous) 06/29/2023 4:49 PM PIE CHEF 06/29/2023 7:51 PM PIE CHEF Celestino Hudson M.B.B.S. LAB BLOOD ADD-ON Performing Organization Address [facility]/ZIP Co de Phone Number [facility] [address] [place] [address] [facility] [address] [place] [address] [place] [address] * (ABNORMAL) Histoplasma Ab (06/29/2023 4:49 PM PIE CHEF) Pathologist [facility] Histoplasma Mycelial Negative Negative 07/02/2023 1:29 PM PIE CHEF [facility] Histoplasma Yeast 1:32(A) Negative 024 1:29 PM PIE CHEF [facility] Comment: REPORTABLE DISEASE Complement fixation titers of >=1:32 are associated with active disease. ??Increasing titers in serially collected samples (1-2 weeks apart) are diagnostic for active disease. ??Results should be interpreted in the context of clinical presentation and other laboratory findings (e.g., fungal culture). Histoplasma Immunodiffusion Negative Negative 07/02/2023 1:29 PM PIE CHEF [facility] Blood (Blood, Venous) 06/29/2023 4:49 PM PIE CHEF 06/29/2023 7:52 PM PIE CHEF Celestino Triana LAB MICROBIOLOGY - BLOOD ORDERABLES Performing Organization Address [facility] Co de Phone Number [facility] [address] [place] [address] [facility] [address] [place] [address] [place] [address] * Pulmonary Function Tests (06/29/2023 10:36 AM PIE CHEF) Pathologist [facility] FVC 2.99 L 06/29/2023 2:52 PM PIE CHEF [facility] FEV1 2.54 L 06/29/2023 2:52 PM PIE CHEF [facility] FEV1/FVC 85.02 % 06/29/2023 2:52 PM PIE CHEF [facility] TSI14-83% 3.01 L/s 06/29/2023 2:52 PM PIE CHEF [facility] PEF PRE 6.33 L/s 06/29/2023 2:52 PM PIE CHEF [facility] PIF PRE 4.55 L/s 06/29/2023 2:52 PM PIE CHEF [facility] FEF 50 % FIF 50 PRE 81.20 % 06/29/2023 2:52 PM PIE CHEF [facility] FET PRE 6.33 sec 06/29/2023 2:52 PM PIE CHEF [facility] DLCO 20.71 ml/(min*mm Hg) 06/29/2023 2:52 PM [facility] DLCOc 20.52 ml/(min*mm Hg) 06/29/2023 2:52 PM [facility] HB 13.70 g(Hb)/dL 06/29/2023 2:52 PM PIE CHEF [facility] VA 3.95 L 06/29/2023 2:52 PM [facility] PulseRest 104.00 1/min 06/29/2023 2:52 PM [facility] TLC 4.16 L 06/29/2023 2:52 PM [facility] FRCPLETH PROVBASE 2.34 L 06/29/2023 2:52 PM [facility] RV 1.17 L 06/29/2023 2:52 PM [facility] RV % TLC PRE 28.11 % 06/29/2023 2:52 PM [facility] 06/29/2023 10:3 6 AM PIE CHEF Impressions [facility] - 06/29/2023 2:52 PM PIE CHEF Abnormal. Mild restriction. Diffusion capacity is normal. Pulse oximetry is normal at rest and exercise was not performed due to inconsistent pulse rate readings between 80-125. Narrative Procedure Note Tay Vasquez M.B.B.S. - 06/29/2023 IMPRESSION: Abnormal. Mild restriction. Diffusion capacity is normal. Pulse oximetryis normal at rest and exercise was not performed due to inconsistent pulserate readings between 80-125. Krishan PaulsonSJair PFT ORDERABLES [facility] NA * (ABNORMAL) CBC with Differential, Blood (06/29/2023 10:08 AM PIE CHEF) Hemoglobin 13.7 11.6 - 15.0 g/dL 06/29/2023 11:11 AM PIE CHEF DTL Hematocrit 39.2 35.5 - 44.9 % 06/29/2023 11:11 AM PIE CHEF DTL Erythrocytes 4.38 3.92 - 5.13 x10(12)/L 06/29/2023 11:11 AM PIE CHEF DTL MCV 89.5 78.2 - 97.9 fL 06/29/2023 11:11 AM PIE CHEF DTL RBC Distrib Width 12.3 12.2 - 16.1 % 06/29/2023 11:11 AM PIE CHEF DTL Platelet Count 343 157 - 371 x10(9)/L 06/29/2023 11:11 AM PIE CHEF DTL Leukocytes 10.5(H) 3.4 - 9.6 x10(9)/L 06/29/2023 11:11 AM PIE CHEF DTL Neutrophils 6.87(H) 1.56 - 6.45 x10(9)/L 06/29/2023 11:11 AM PIE CHEF PM Lymphocytes 2.87 0.95 - 3.07 x10(9)/L 06/29/2023 11:11 AM PIE CHEF DTL Monocytes 0.60 0.26 - 0.81 x10(9)/L 06/29/2023 11:11 AM PIE CHEF DTL Eosinophils 0.11 0.03 - 0.48 x10(9)/L 06/29/2023 11:11 AM PIE CHEF DTL Basophils <0.03 0.01 - 0.08 x10(9)/L 06/29/2023 11:11 AM PIE CHEF DTL Blood (Blood, Venous) 06/29/2023 10:08 AM PIE CHEF 06/29/2023 10:30 AM PIE CHEF Krishan Triana LAB BLOOD ADD-ON [facility] [address] [place] [address], [facility] DTL [facility] [address] [place] [address] DHPM [facility] [address] [place] [address] * (ABNORMAL) Comprehensive Metabolic Panel (06/29/2023 10:08 AM PIE CHEF) Pathologist [facility] Potassium, S 3.9 3.6 - 5.2 mmol/L 06/29/2023 11:03 AM PIE CHEF DTL Sodium, S 141 135 - 145 mmol/L 06/29/2023 11:03 AM PIE CHEF DTL Chloride, S 101 98 - 107 mmol/L 06/29/2023 11:03 AM PIE CHEF DTL Bicarbonate, S 29 22 - 29 mmol/L 06/29/2023 11:03 AM PIE CHEF DTL Anion Gap 11 7 - 15 06/29/2023 11:03 AM PIE CHEF DTL BUN (Blood Urea Nitrogen), S 8 6 - 21 mg/dL 06/29/2023 11:03 AM PIE CHEF DTL Creatinine 0.55(L) 0.59 - 1.04 mg/dL 06/29/2023 11:03 AM PIE CHEF DTL Estimated GFR (eGFR) >90 >=60 mL/min/BS A 06/29/2023 11:03 AM PIE CHEF DTL Comment: Estimated GFR calculated using the 2020 CKD_EPI creatinine equation. Calcium, Total, S 9.1 8.6 - 10.0 mg/dL 06/29/2023 11:03 AM PIE CHEF DTL Glucose, S 135 70 - 140 mg/dL 06/29/2023 11:03 AM PIE CHEF DTL Protein, Total, S 7.3 6.3 - 7.9 g/dL 06/29/2023 11:03 AM PIE CHEF DTL Albumin, S 4.5 3.5 - 5.0 g/dL 06/29/2023 11:03 AM PIE CHEF DTL Aspartate Aminotransferase (AST), S 26 8 - 43 U/L 06/29/2023 11:03 AM PIE CHEF DTL Alkaline Phosphatase, S 92 35 - 104 U/L 06/29/2023 11:03 AM PIE CHEF DTL Alanine Aminotransferase (ALT), S 33 7 - 45 U/L 06/29/2023 11:03 AM PIE CHEF DTL Bilirubin, Total, S 0.5 0.0 - 1.2 mg/dL 06/29/2023 11:03 AM PIE CHEF DTL Blood (Blood, Venous) 06/29/2023 10:08 AM PIE CHEF 06/29/2023 10:42 AM PIE CHEF Krishan Triana LAB BLOOD ADD-ON [facility] [address] [place] [address] * (ABNORMAL) CRP (C-Reactive Protein) (06/29/2023 10:04 AM PIE CHEF) C-Reactive Protein (CRP), S 56.4(H) <5.0 mg/L 07/05/2023 10:41 AM PIE CHEF DTL Blood (Blood, Venous) 06/29/2023 10:04 AM PIE CHEF 07/05/2023 9:54 AM PIE CHEF Celestino PaulsonSJair LAB BLOOD ADD-ON Performing Organization Address [facility]/ZIP Co de Phone Number [facility] [address] [place], [place] [id number] [place] [address] * Interpretation of Outside CT Chest (06/27/2023 5:59 AM PIE CHEF) Anatomical Region Laterality Modality Chest, Thoracic RST LOS, Tho racic ARZ LOS, Thoracic FLA LOS, Other, Body N/A Computed Tomography Impressions 06/28/2023 10:03 AM PIE CHEF 1. Two dominant nodules in the right middle lobe with adjacent satellite nodules suggesting findings may be due to an infectious or inflammatory process. The largest nodule has decreased in size compared to 11/02/2022 and 07/20/2022. This nodule was largest on 11/02/2022. 2. Images were obtained with 3 mm slice thicknesses which is less than ideal for imaging for interstitial lung disease. No obvious findings of pulmonary fibrosis. There is a suggestion of possible slight air trapping in both lower lobes. Narrative 06/28/2023 10:03 AM PIE CHEF EXAM: ??INTERPRETATION OF OUTSIDE CT CHEST , without IV contrast, dated 06/18/2023 with scan obtained with thick 3 mm slice thicknesses. High resolution CT imaging was not performed COMPARISON: ??Outside chest CT 11/02/2022, 07/20/2022 FINDINGS: ?? None of the prior exams were obtained with thin sub-1 mm slice thickening or prone and expiratory imaging. There are 2 ??dominant nodules in the right middle lobe with smaller satellite nodules. For example there is a 14 x 10 mm nodule (series 3/image 46 or series 4 image 34) and 18 x 12 mm subpleural nodule (3/53 or 4/). There are several smaller satellite nodules located between the 2 nodules. The largest of these 2 nodules appears to have slightly decreased in size measuring as much as 25 x 18 mm on 11/02/2022 and 19 x 16 mm on 07/20/2022. Imaging is obtained in slight expiration. There is a suggestion of very mild air trapping in the lower lungs (3/52). No findings suggestive of interstitial pulmonary fibrosis or cystic lung disease. No adenopathy. Thoracic curve. Diffuse hepatic steatosis. Cholecystitis. Procedure Note Harpreet Adams M.D. - 06/28/2023 EXAM: INTERPRETATION OF OUTSIDE CT CHEST , without IV contrast, dated06/18/2023 with scan obtained with thick 3 mm slice thicknesses. Highresolution CT imaging was not performed COMPARISON: Outside chest CT 11/02/2022, 07/20/2022 FINDINGS: None of the prior exams were obtained with thin sub-1 mm slice thickeningor prone and expiratory imaging. There are 2 dominant nodules in the right middle lobe with smallersatellite nodules. For example there is a 14 x 10 mm nodule (series3/image 46 or series 4 image 34) and 18 x 12 mm subpleural nodule (3/53 or4/23). There are several smaller satellite nodules located between the 2 nodules. The largest of these 2 nodulesappears to have slightly decreased in size measuring as much as 25 x 18 mmon 11/02/2022 and 19 x 16 mm on 07/20/2022. Imaging is obtained in slight expiration. There is a suggestion of verymild air trapping in the lower lungs (3/52). No findings suggestive ofinterstitial pulmonary fibrosis or cystic lung disease. No adenopathy. Thoracic curve. Diffuse hepatic steatosis. Cholecystitis. IMPRESSION: 1. Two dominant nodules in the right middle lobe with adjacent satellitenodules suggesting findings may be due to an infectious or inflammatoryprocess. The largest nodule has decreased in size compared to 11/02/2022nd 07/20/2022. This nodule was largest on 11/02/2022. 2. Images were obtained with 3 mm slice thicknesses which is less thanideal for imaging for interstitial lung disease. No obvious findings ofpulmonary fibrosis. There is a suggestion of possible slight air trappingin both lower lobes. Celestino Triana IMG CT PROCEDURES * CT CHEST WO CON-Outside CT Body (06/18/2023 4:10 PM PIE CHEF) Narrative [facility] - 06/23/2023 10:41 AM PIE CHEF This order has been created and auto-finalized to support the import of outside images. If available, original interpretation can be found on the Media Tab in Chart Review, in Document Viewer, or as an image in QREADS. If a re-interpretation or overread is required please follow defined workflow. ?? Provider Not In System IMG CT PROCEDURES [facility] NA from Last 3 Months or Most Recently Relevant to Health Maintenance Care Teams Retoucher Photoengraving Relationship Specialty Start Date End Date Elsewhere, Pcp PCP - General Internal Medicine 06/28/23
--- OUTSIDE RECORDS SUMMARY | 2023-09-05 07:28 | XMS_ITS | Encounter Summary ---
Author Name Unknown Organization [facility] Address [address] [place] [id number] Care Team Providers Care Plant Hr Manager Name Role Phone Elsewhere, Pcp Primary Care Provider Unavailabl e Encounter Details Date Type Department Care Team (Late st Contact Info) Description 07/04/2023 Clinical Communication Division of Pulmonary Medicine in [place], [place] [address] [place] [phone] Celestino Hudson M.B.B.S. [address] [place] [address] Social History Tobacco Use Types Packs/Day Years Used Date Smoking Tobacco: Never Smokeless Tobacco: Never Alcohol Use Standard Drinks/Week Comments No 0 (1 standard drink = 0.6 oz pur e alcohol) [facility] Utilities Answer Date Recorded In the past 12 months has [facility] [employer], gas, oil, or water [employer] threatened to shut off services in your [...] often do you attend chur ch or yarsani services? 1 to 4 times per year 07/01/2019 Do you belong to any clubs o r organizations such as taoism groups, unions, fraternal or athletic groups, or [...] Answer Date Recorded PHQ-2 Score 1 12/06/2019 [facility] of Occupat ionhi Health - Occupational Stress Questionnaire Answer Date [...] money to buy more. Never true 06/28/19 24 Within the past 12 months, t he [...] Date Recorded Dental: Regular Dentist Yes 06/28/19 24 Employment Answer Date Recorded Employment status Unemployed/not in [facility] paid workforce and NOT seeking employment 06/28/2023 Housing Stability Answer Date Recorded What is your living situation today? I have a [facility] place to live 06/28/2023 Education Answer Date Recorded What is the highest level of school you have completed or the highest degree you have received? GED or equivalent Sex and Gender Information Value Date Recorded Sex Assigned at Female 06/28/2023 7:21 PM TEACHER OF THE SIGHT IMPAIRED Gender Identity Female 07/01/2019 7:57 PM TEACHER OF THE SIGHT IMPAIRED Sexual Orientation Straight 07/01/2019 7: 57 PM TEACHER OF THE SIGHT IMPAIRED documented as of this encounter Plan of Treatment Upcoming Encounters Date Type Department Care Team (Late st Contact Info) Description 09/06/2023 1:30 PM CDT Office Visit Department of Otorhinolaryngology in [place], [place] [address] [place] [address] Scotty Robledo, Abel.-C., M.S. [address] [place] [address] documented as of this encounter Visit Diagnoses Diagnosis Nodule Pulmonary- Primary documented in this encounter Additional Health Concerns Assessment Noted Time PHQ-9 Depression Total Score: 5 12/06/19 20 10:06 AM CDT documented as of this encounter Care Teams Plant Hr Manager Relationship Specialty Start Date End Date Elsewhere, Pcp PCP - General Internal Medicine 2/12/24 documented as of this encounter
--- OUTSIDE RECORDS SUMMARY | 2023-09-05 07:28 | XMS_ITS | Encounter Summary ---
Author Name Unknown Organization [facility] Address [address] [place] [address] Care Team Providers Care Register Of Deeds Name Role Phone Elsewhere, Pcp Primary Care Provider Unavailabl e Encounter Details Date Type Department Care Team (Late st Contact Info) Description 07/04/2023 Orders Only Division of Pulmonary Medicine in [place], [place] [address] [place] [address] Celestino Hudson M.B.B.S. [address] [place] [address] Nodules Pulmonary Multiple (Primary Dx) Social History Tobacco Use Types Packs/Day Years Used Date Smoking Tobacco: Never Smokeless Tobacco: Never Alcohol Use Standard Drinks/Week Comments No 0 (1 standard drink = 0.6 oz pur e alcohol) [facility] Utilities Answer Date Recorded In the past 12 months has [facility] [employer], gas, oil, or water [employer] threatened to shut off services in your [...] often do you attend chur ch or religion services? 1 to 4 times per year 07/01/2019 Do you belong to any clubs o r organizations such as buddhism groups, unions, fraternal or athletic groups, or [...] Answer Date Recorded PHQ-2 Score 1 12/06/2019 [facility] - [facility]ational Stress Questionnaire Answer Date [...] Answer Date Recorded Employment status Unemployed/not in [facility] paid workforce and NOT seeking employment 06/28/2023 Housing Stability Answer Date Recorded What is your living situation today? I have a [facility] place to live 06/28/2023 Education Answer Date Recorded What is the highest level of school you have completed or the highest degree you have received? GED or equivalent Sex and Gender Information Value Date Recorded Sex Assigned at Female 06/28/2023 7:21 PM LOADING DOCK HAND Gender Identity Female 07/01/2019 7:57 PM LOADING DOCK HAND Sexual Orientation Straight 07/01/2019 7: 57 PM LOADING DOCK HAND documented as of this encounter Plan of Treatment Upcoming Encounters Date Type Department Care Team (Late st Contact Info) Description 09/06/2023 1:30 PM CDT Office Visit Department of Otorhinolaryngology in [place], [place] [address] [place] [phone] Scotty Robledo, Jes.A.-C., M.S. [address] [place] [phone] documented as of this encounter Results * ANCA (Antineutrophil Cytoplasmic Antibodies) Vasculitis Panel (06/29/2023 4:49 PM LOADING DOCK HAND) Myeloperoxidase Ab, S <0.2 <0.4 (Negative ) U 07/05/2023 4:28 PM LOADING DOCK HAND SDSC Proteinase 3 Ab (PR3), S <0.2 <0.4 (Negative ) U 07/05/2023 4:28 PM LOADING DOCK HAND SDSC Blood (Blood, Venous) 06/29/2023 4:49 PM LOADING DOCK HAND 07/05/2023 1:19 PM LOADING DOCK HAND Celestino JuarezB.S. LAB BLOOD ADD-ON Performing Organization Address City/[facility]/ZIP Co de Phone Number [facility] [address] [place] [address] [facility] [address] [place] [address] * (ABNORMAL) CRP (C-Reactive Protein) (06/29/2023 10:04 AM LOADING DOCK HAND) C-Reactive Protein (CRP), S 56.4(H) <5.0 mg/L 07/05/2023 10:41 AM LOADING DOCK HAND DT Blood (Blood, Venous) 06/29/2023 10:04 AM LOADING DOCK HAND 07/05/2023 9:54 AM LOADING DOCK HAND Celestino Shankar.B.S. LAB BLOOD ADD-ON Performing Organization Address City/[facility]/ZIP Co de Phone Number [facility] [address] [place] [address], [facility] [address] [place] [address] documented in this encounter Visit Diagnoses Diagnosis Nodules Pulmonary Multiple- Primary documented in this encounter Additional Health Concerns Assessment Noted Time PHQ-9 Depression Total Score: 5 12/06/19 20 10:06 AM CDT documented as of this encounter Care Teams Register Of Deeds Relationship Specialty Start Date End Date Elsewhere, Pcp PCP - General Internal Medicine 06/28/23 documented as of this encounter
--- OUTSIDE RECORDS SUMMARY | 2023-09-05 07:28 | XMS_ITS | Encounter Summary ---
Author Name Unknown Organization [facility] Address [address] [place] [address] Care Team Providers Care Interventional Pain Physician Name Role Phone Elsewhere, Pcp Primary Care Provider Unavailabl e Encounter Details Date Type Department Care Team (Late st Contact Info) Description 08/27/2023 Orders Only Division of Pulmonary Medicine in [place], [place] [address] [place] [address] Krishan Jeffrey M.B.B.S. [address] [place] [address] Nodules Pulmonary Multiple Social History Tobacco Use Types Packs/Day Years Used Date Smoking Tobacco: Never Smokeless Tobacco: Never Alcohol Use Standard Drinks/Week Comments No 0 (1 standard drink = 0.6 oz pur e alcohol) [facility] Utilities Answer Date Recorded In the past 12 months has [facility] electric, gas, oil, or water [employer] threatened to shut off services in your [...] often do you attend chur ch or anabaptism services? 1 to 4 times per year 07/01/2019 Do you belong to any clubs o r organizations such as gnosticism groups, unions, fraternal or athletic groups, or [...] Answer Date Recorded PHQ-2 Score 1 12/06/2019 [facility] of Occupat ionde Health - Occupational Stress Questionnaire Answer Date [...] your living situation today? I have a [facility] place to live 06/28/2023 Education Answer Date Recorded What is the highest level of school you have completed or the highest degree you have received? GED or equivalent Sex and Gender Information Value Date Recorded Sex Assigned at Female 06/28/2023 7:21 PM ROCK STAR Gender Identity Female 07/01/2019 7:57 PM ROCK STAR Sexual Orientation Straight 07/01/2019 7: 57 PM ROCK STAR documented as of this encounter Plan of Treatment Upcoming Encounters Date Type Department Care Team (Late st Contact Info) Description 09/06/2023 1:30 PM CDT Office Visit Department of Otorhinolaryngology in [place], [place] [address] [place] [phone] Scotty Robledo P.A.-C., M.S. [address] [place] [address] documented as of this encounter Visit Diagnoses Diagnosis Nodules Pulmonary Multiple documented in this encounter Additional Health Concerns Assessment Noted Time PHQ-9 Depression Total Score: 5 12/06/19 20 10:06 AM CDT documented as of this encounter Care Teams Interventional Pain Physician Relationship Specialty Start Date End Date Elsewhere, Pcp PCP - General Internal Medicine 06/28/23 documented as of this encounter
--- OUTSIDE RECORDS SUMMARY | 2023-09-05 07:28 | XMS_ITS | Encounter Summary ---
Author Name Unknown Organization [facility] Address [address] [place] [address] Care Team Providers Care Processing Analyst Name Role Phone Elsewhere, Pcp Primary Care Provider Unavailabl e Encounter Details Date Type Department Care Team (Late st Contact Info) Description 07/04/2023 Documentation Division of Pulmonary Medicine in [place], [place] [address] [place] [phone] Celestino Hudson M.B.B.S. [address] [place] [address] Social History Tobacco Use Types Packs/Day Years Used Date Smoking Tobacco: Never Smokeless Tobacco: Never Alcohol Use Standard Drinks/Week Comments No 0 (1 standard drink = 0.6 oz pur e alcohol) [facility] Utilities Answer Date Recorded In the past 12 months has [facility] electric, gas, oil, or water [employer] threatened to shut off services in your [...] often do you attend chur ch or mormon services? 1 to 4 times per year 07/01/2019 Do you belong to any clubs o r organizations such as latter day groups, unions, fraternal or athletic groups, or [...] Answer Date Recorded PHQ-2 Score 1 12/06/2019 [facility] of Occupat ionvt Health - Occupational Stress Questionnaire Answer Date [...] Answer Date Recorded Employment status Unemployed/not in [employer] paid workforce and NOT seeking employment 06/28/2023 Housing Stability Answer Date Recorded What is your living situation today? I have a [facility] place to live 06/28/2023 Education Answer Date Recorded What is the highest level of school you have completed or the highest degree you have received? GED or equivalent Sex and Gender Information Value Date Recorded Sex Assigned at Female 06/28/2023 7:[address] BUYER Gender Identity Female 07/01/2019 7:[address] BUYER Sexual Orientation Straight 07/01/2019 7: [address] BUYER documented as of this encounter Progress Notes * Celestino Hudson M.B.B.S. - 07/04/2023 10:11 PM CST Erroneous T OF WAY BUYER documented in this encounter Plan of Treatment Upcoming Encounters Date Type Department Care Team (Late st Contact Info) Description 09/06/2023 1:30 PM CDT Office Visit Department of Otorhinolaryngology in [place], [place] [address] [place] [address] Scotty Robledo, P.A.-C., M.S. [address] [place] [address] documented as of this encounter Visit Diagnoses Diagnosis Nodules Pulmonary Multiple- Primary documented in this encounter Additional Health Concerns Assessment Noted Time PHQ-9 Depression Total Score: 5 12/06/19 20 10:06 AM CDT documented as of this encounter Care Teams Processing Analyst Relationship Specialty Start Date End Date Elsewhere, Pcp PCP - General Internal Medicine 06/28/23 documented as of this encounter
--- OUTSIDE RECORDS SUMMARY | 2023-09-05 07:28 | XMS_ITS | Encounter Summary ---
Author Name Unknown Organization [facility] Address [address] [place] [address] Care Team Providers Care Real Estate Director Name Role Phone Elsewhere, Pcp Primary Care Provider Unavailabl e Encounter Details Date Type Department Care Team (Latest Contact Info) Description 07/16/2023 10:10 AM SOFTWARE PRODUCT SPECIALIST Ancillary Procedure Department of Otorhinolaryngology Social History Tobacco Use Types Packs/Day Years Used Date Smoking Tobacco: Never Smokeless Tobacco: Never Alcohol Use Standard Drinks/Week Comments No 0 (1 standard drink = 0.6 oz pur e alcohol) [facility] Utilities Answer Date Recorded In the past 12 months has e electric, gas, oil, or water company threatened to shut off services in your [...] often do you attend chur ch or orthodoxy services? 1 to 4 times per year 07/01/2019 Do you belong to any clubs o r organizations such as presybeterian groups, unions, fraternal or athletic groups, or [...] Answer Date Recorded PHQ-2 Score 1 12/06/2019 [facility] of Occupat ional Health - Occupational Stress [...] Answer Date Recorded Employment status Unemployed/not in [employer] paid workforce and NOT seeking employment 06/28/2023 Housing Stability Answer Date Recorded What is your living situation today? I have a [facility] place to live 06/28/2023 Education Answer Date Recorded What is the highest level of school you have completed or the highest degree you have received? GED or equivalent Sex and Gender Information Value Date Recorded Sex Assigned at Female 06/28/2023 7:21 PM SOFTWARE PRODUCT SPECIALIST Gender Identity Female 07/01/2019 7:57 PM SOFTWARE PRODUCT SPECIALIST Sexual Orientation Straight 07/01/2019 7: 57 PM SOFTWARE PRODUCT SPECIALIST documented as of this encounter Plan of Treatment Upcoming Encounters Date Type Department Care Team (Late st Contact Info) Description 09/06/2023 1:30 PM CDT Office Visit Department of Otorhinolaryngology in [place], [place] [address] [place] [address] Scotty Robledo P.A.-C., M.S. [address] [place] [address] documented as of this encounter Procedures Procedure Name Priority Date/Time Associated Diagnosis Comments OTORHINOLARYNGOLOGY IMAGE EXAM Routine 07/16/2023 10:10 AM SOFTWARE PRODUCT SPECIALIST documented in this encounter Results * Nasal Endoscopy-Otorhinolaryngology Image Exam (07/16/2023 10:10 AM SOFTWARE PRODUCT SPECIALIST) 07/16/2023 10:0 9 AM SOFTWARE PRODUCT SPECIALIST Narrative [facility] - 07/16/2023 10:40 AM SOFTWARE PRODUCT SPECIALIST This order has been created and auto-finalized to support the import of images acquired without order. The clinical documentation to support these images can be found on the encounter that produced images. Provider Not In System IMG NON RAD IMAGI NG PROCEDURES [facility] NA documented in this encounter Visit Diagnoses Not on filedocumented in this encounter Additional Health Concerns Assessment Noted Time PHQ-9 Depression Total Score: 5 12/06/19 20 10:06 AM CDT documented as of this encounter Care Teams Real Estate Director Relationship Specialty Start Date End Date Elsewhere, Pcp PCP - General Internal Medicine 06/28/23 documented as of this encounter
--- OUTSIDE RECORDS SUMMARY | 2023-09-05 07:28 | XMS_ITS | Encounter Summary ---
Author Name Unknown Organization [facility] Address [address] [place] [id number] Care Team Providers Care Manager Books Name Role Phone Elsewhere, Pcp Primary Care Provider Unavailabl e Reason for Visit * Outpatient (Routine) - Closed Specialty Diagnoses / Procedures Referred By Peri t Referred To Contact Otorhinolaryngology Diagnoses Nodules Pulmonary Multiple Celestino Hudson M.B.B.S. [address] [place] [phone] [facility] Referral ID Status Reason Start Date Expiration Date V isits Requested Visits Authorized [id number] Closed Specialty Services Required 07/06/2023 01/04/2025 1 1 Encounter Details Date Type Department Care Team (Latest Contact Info) Description 07/16/2023 10:00 AM TMR TEACHER Comprehensive Visit Department of Otorhinolaryngology in [place], [place] [address] [place] [phone] Maxwell Sanchez, CINTHIA, C.N.P., M.S.N. [address] [place] [phone] Congestion Sinus (Primary Dx); Nodules Pulmonary Multiple; Drip Post Nasal Social History Tobacco Use Types Packs/Day Years Used Date Smoking Tobacco: Never Smokeless Tobacco: Never Alcohol Use Standard Drinks/Week Comments No 0 (1 standard drink = 0.6 oz pur e alcohol) [facility] Utilities Answer Date Recorded In the past [address] [employer], gas, oil, or water company threatened [...] week 07/01/2019 How often do you attend [facility] or [facility] services? 1 to 4 times per year 07/01/2019 Do you belong to any clubs o r organizations such as jew groups, unions, fraternal or athletic groups, or [...] Answer Date Recorded PHQ-2 Score 1 12/06/2019 [facility] of Occupat ional Health - Occupational Stress [...] your living situation today? I have a [facility] place to live 06/28/2023 Education Answer Date Recorded What is the highest level of school you have completed or the highest degree you have received? GED or equivalent Sex and Gender Information Value Date Recorded Sex Assigned at Female 06/28/2023 7:21 PM TMR TEACHER Gender Identity Female 07/01/2019 7:57 PM TMR TEACHER Sexual Orientation Straight 07/01/2019 7: 57 PM TMR TEACHER documented as of this encounter Consult Notes * Maxwell Sanchez, CINTHIA, C.N.P., M.S.N. - 07/16/2023 10:00 AM CST Images from the original note were not included. SUBJECTIVE CHIEF COMPLAINT / REASON FOR VISIT Liv Evans is a 33 y.o. female who presents for evaluation of sinusitis HISTORY OF PRESENT ILLNESS Previous sinus surgery: No Allergic Rhinitis:Yes nothing daily allergy sinus if needed Asthma: Yes childhood history, no problems as an adult Aspirin Sensitivity:No Ms. Evans is a 33 y.o. female who was seen today for a history of sinusitis being referred by Dr. Hudson in pulmonary whom she most recently saw 07/06/2023. Patient was previously consulted beginning of June with a history of sinus symptoms, childhood asthma, and recurrent pneumonias in 2019 andrecently was diagnosed with right middle lobe pulmonary nodules. These were biopsied with necrotizing granulomatosis histopathology without response to itraconazole for presumed histoplasmosis. Concerns were raised for possible ANCA vasculitis or underlying autoimmune conditions, and her ANCA panelwas negative. Today, the patient denies any overall sinonasal concerns. She does report that she notices her right nostril will get a little bit smaller sometimes and will close on her if she breathes in and out. She endorses occasional postnasal drainage when she lays down that will cause her to cough however this has occasional. Her main thing is every week she will have a sinus headache that lasts for 2-3 days including pressure in her cheeks and forehead. She will take hot baths, and sometimes he was migraine medication that will help minimally. She reports her smell and taste are intact and denies anyroutine nasal sprays or rinses. She reports having seasonal allergies as a kid and as an adult she does well. If her symptoms get bothersome she will take a sinus allergy medication. She denies any obstructive sleep apnea history or sensitivity to aspirin or NSAIDs. She was diagnosed with asthma as a child however has no difficulties with an adult. She does endorse a history of GERD and describes it as a ???weird feeling in herchest?? . Tums she will take occasionally which help.The patient's worst symptoms are Need to blow nose, Nasal blockage, Cough, Facial pain/pressure, Fatigue, Reduced productivity, Frustrated/restless/irritable, Sad and the total SNOT-22 score is 32. Of note, patient is deaf and Michelle helped interpret the visit for communication Social History Tobacco Use Smoking status: Never Smokeless tobacco: Never REVIEW OF SYSTEMS REVIEW OF SYSTEMS OBJECTIVE PHYSICAL EXAM Constitutional: Appears alert and well Otoscopic: Hearing is grossly normal Right: External ear normal TM intact without effusion EAC without significant cerumen Left: External ear normal TM intact without effusion EAC without significant cerumen Nose: The external nose is without significant lesions or masses Oral Cavity/Oropharynx: Normal oral cavity Eyes: Pupils are equal, round, and reactive to light Cardiovascular: Upper extremities are well perfused Pulmonary/Chest: Respirations have grossly normal rate and effort Neurological: She is alert Skin: Skin is normal temperature Psychiatric: Affect appears appropriate PROCEDURE NOTE: Procedure: Rigid nasal endoscopy Pre-procedure diagnosis: Nasal congestion Post-procedure diagnosis: sinusitis Indication: Nasal congestion Informed Consent: After explaining the risks, benefits and alternatives of nasal endoscopy, the patient confirmed understanding verbally and did wish to proceed. Findings: After topical anesthesia and decongestion with Lidocaine and Afrin spray, rigid endoscopywas performed using a 0 degree endoscope. The septum was deviated to the right narrowing view of the nasal cavity. Inferior turbinates were congested bilaterally. Able to minimally view of the right middle turbinate due to deviation of the septum. Unable to view the nasopharynx bilaterally. Edema was noted diffusely on the right and moderately on the left. There was no evidence of any mucopurulence just clear drainage throughout. The nasopharynx was free of any lesions or masses. There were no complications and the patient tolerated the procedure well. Right Side Left Side Polyp Absent = 0 Absent = 0 Edema Severe/polypoid = 2 Mild/moderate = 1 Discharge Absent = 0 Thin and clear = 1 Scarring Absent = 0 Absent = 0 Crusting Absent = 0 Absent = 0 Arnav-Jared Endoscopy Score = [address] 07/02/2023 ASSESSMENT / PLAN #1 Nodules Pulmonary Multiple #2 Congestion Sinus #3 Drip Post Nasal It was a pleasure to meet Mrs. Evans in clinic today. She denies any sinonasal concerns however was recently diagnosed with right middle lobe pulmonary nodules that were biopsied with necrotizing granuloma toes histopathology and had a sinus CT that revealed paranasal sinus inflammation. She denies any overall sinonasal symptoms however does have sinus headaches with pain and pressure in her cheeks and forehead occurring weekly and will lasts for 2-3 days. We reviewed her most recent sinus CT that revealed mucosal inflammation throughout her sinuses withpatency of her sphenoid sinuses. Her nasal endoscopy revealed a right-sided septal deviation narrowing view of the nasal cavity and obstructing view of the nasopharynx. Clear drainage was noted within the left nasal cavity and a moderate amount of edema. Clear drainage was noted throughout. We discussed beginning a routine nasal steroid spray or rinse. The patient opted to trial a rinse to start. She will use Flonase/Rhinocort/Nasacort routinely, 2 puffs in each nostril twice daily for 6 weeks. We also discussed beginning saline irrigations and she will follow the spray after the rinse. After 6 weeks of routine use she will reach out to me and let me know how she was doing. In the event that she was not had any significant improvement in her symptoms, we will progress to budesonide irrigations twice daily and advise her to discontinue use of the nasal spray. After 12 weeks of routine intranasal steroids, as she continues to be symptomatic she will let us know and we will ordera consultation with 1 of our surgeons. All of her questions were answered and she was agreeable to plan. Maxwell Sanchez APRN, C.N.P., M.S.N. TEACHER documented in this encounter Plan of Treatment Upcoming Encounters Date Type Department Care Team (Late st Contact Info) Description 09/06/2023 1:30 PM CDT Office Visit Department of Otorhinolaryngology in [place], [place] [address] [place] [phone] cSotty Robledo P.A.-C., M.S. [address] [place] [phone] documented as of this encounter Visit Diagnoses Diagnosis Congestion Sinus- Primary Nodules Pulmonary Multiple Drip Post Nasal documented in this encounter Additional Health Concerns Assessment Noted Time PHQ-9 Depression Total Score: 5 12/06/19 20 10:06 AM CDT documented as of this encounter Care Teams Manager Books Relationship Specialty Start Date End Date Elsewhere, Pcp PCP - General Internal Medicine 06/28/23 documented as of this encounter
--- OUTSIDE RECORDS SUMMARY | 2023-09-05 07:28 | XMS_ITS | Encounter Summary ---
Author Name Unknown Organization [facility] Address [address] [place] [id number] Care Team Providers Care Loss Prevention Coordinator Name Role Phone Elsewhere, Pcp Primary Care Provider Unavailabl e Reason for Referral * Outpatient (Routine) - Authorized Specialty Diagnoses / Procedures Referred By Peri t Referred To Contact Otorhinolaryngology Maxwell Sanchez APRN, C.N.P., M.S.N. [address] [place] [phone] [facility] Referral ID Status Reason Start Date Expiration Date V isits Requested Visits Authorized [id number] Authorized 09/01/2023 03/02/2025 1 1 Scheduling Instructions Any ROSEMARY for throat exam to r/o vasculitis Encounter Details Date Type Department Care Team (Late st Contact Info) Description 09/01/2023 Orders Only Department of Otorhinolaryngology in [place], [place] [address] [place] [phone] Estephania Linda, R.NJair [address] [place] [phone] Social History Tobacco Use Types Packs/Day Years Used Date Smoking Tobacco: Never Smokeless Tobacco: Never Alcohol Use Standard Drinks/Week Comments No 0 (1 standard drink = 0.6 oz pur e alcohol) [facility] Utilities Answer Date Recorded In [...] week 07/01/2019 How often do you attend [facility] or [facility] services? 1 to 4 times per year 07/01/2019 Do you belong to any clubs o r organizations such as restorationist groups, unions, fraternal or athletic groups, or [...] Answer Date Recorded PHQ-2 Score 1 12/06/2019 [facility] of Occupat ional Health - Occupational Stress [...] your living situation today? I have a [facility] place to live 06/28/2023 Education Answer Date Recorded What is the highest level of school you have completed or the highest degree you have received? GED or equivalent Sex and Gender Information Value Date Recorded Sex Assigned at Female 06/28/2023 7:21 PM COMMERCIAL COUNSEL Gender Identity Female 07/01/2019 7:57 PM COMMERCIAL COUNSEL Sexual Orientation Straight 07/01/2019 7: 57 PM COMMERCIAL COUNSEL documented as of this encounter Plan of Treatment Upcoming Encounters Date Type Department Care Team (Late st Contact Info) Description 09/06/2023 1:30 PM CDT Office Visit Department of Otorhinolaryngology in [place], [place] [address] [place] [phone] Scotty Robledo P.A.-C., M.S. [address] [place] [phone] Scheduled Referrals Name Type Priority Associated Diagnoses Order Schedule Otorhinolaryngology office visit (clinic) Outpatient Referral Routine Expected: 09/01/2023, Expires: 11/30/2024 documented as of this encounter Visit Diagnoses Not on filedocumented in this encounter Additional Health Concerns Assessment Noted Time PHQ-9 Depression Total Score: 5 12/06/19 20 10:06 AM CDT documented as of this encounter Care Teams Loss Prevention Coordinator Relationship Specialty Start Date End Date Elsewhere, Pcp PCP - General Internal Medicine 06/28/23 documented as of this encounter
--- OUTSIDE RECORDS SUMMARY | 2023-09-05 07:28 | XMS_ITS | Encounter Summary ---
Author Name Unknown Organization [facility] Address [address] [place] [address] Care Team Providers Care Casting Director Name Role Phone Elsewhere, Pcp Primary Care Provider Unavailabl e Reason for Referral * Outpatient (Routine) - Closed Specialty Diagnoses / Procedures Referred By Peri t Referred To Contact Otorhinolaryngology Diagnoses Nodules Pulmonary Multiple Celestino Hudson M.B.B.S. 200 [place] [phone] [facility] Referral ID Status Reason Start Date Expiration Date V isits Requested Visits Authorized [id number] Closed Specialty Services Required 07/06/2023 01/04/2025 1 1 S INSPECTOR Reason for Visit * Reason Onset Date Comments Follow-up Orders 07/05/2023 Encounter Details Date Type Department Care Team (Latest Contact Info) Description 07/05/2023 Clinical Communication Division of Pulmonary Medicine in [place], [place] [address] [place] [phone] Celestino Hudson M.B.B.S. [address] [place] [phone] Follow-up Orders Social History Tobacco Use Types Packs/Day Years Used Date Smoking Tobacco: Never Smokeless Tobacco: Never Alcohol Use Standard Drinks/Week Comments No 0 (1 standard drink = 0.6 oz pur e alcohol) [facility] Utilities Answer Date Recorded In the past 12 months has [facility] [employer], gas, oil, or water [employer] threatened to shut off services in your [...] 07/01/2019 How often do you attend chur or evangelical services? 1 to 4 times per year 07/01/2019 Do you belong to any clubs o r organizations such as yarsanism groups, unions, fraternal or athletic groups, or [...] Answer Date Recorded PHQ-2 Score 1 12/06/2019 [facility] of Occupat ional Health - Occupational Stress [...] Answer Date Recorded Employment status Unemployed/not in th e paid workforce and NOT seeking employment 06/28/2023 Housing Stability Answer Date Recorded What is your living situation today? I have a [facility] place to live 06/28/2023 Education Answer Date Recorded What is the highest level of school you have completed or the highest degree you have received? GED or equivalent Sex and Gender Information Value Date Recorded Sex Assigned at Female 06/28/2023 7:21 PM PARTS INSPECTOR Gender Identity Female 07/01/2019 7:57 PM PARTS INSPECTOR Sexual Orientation Straight 07/01/2019 7: 57 PM PARTS INSPECTOR documented as of this encounter Progress Notes * Celestino Hudson M.B.B.S. - 07/06/2023 5:24 PM CST Follow up note Ms Evans, never smoker, childhood history of asthma with sinus symptoms with recurrent pneumonias in 2019, COVID-19 infection in 2021 . Most recently was diagnosed with right middle lobe pulmonary nodules. 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 CT sinuses: Acute paranasal sinus inflammation, most prominently involving the bilateral maxillary sinuses and sinus outlets as described MPO/PR3 negative, PAU: 1:160 urinalysis with microscopy,: RBC 30-40, dipstick Hemoglobin large normal renal function C-reactive protein: 56 Histoplasma Mycelial: Negative; Histoplasma Yeast 1:32 Abnormal, histoplasma urine antigen negative Comment: Seems like she may have had some past fungal exposure. 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: Initiate prednisone at 40 mg x 2 weeks, 30 mg x 2 weeks, 20 mg x4 weeks, 10 mg x 2 weeks--> reassess Atovaquone for PCP prophylaxis (given listed sulfa allergy) Additional serologies (blood work) to include anti GBM antibody, complement and cryoglobulins ENT consult for sinus evaluation and biopsy if feasible Review of outside TBLB and FNA biopsy at [facility] pending Further maintenance immunosuppression to be decided in due course Discussed with Dr Jeffrey S INSPECTOR documented in this encounter Miscellaneous Notes * Telephone Encounter - Virginia Morel S - 07/05/2023 12:14 PM CST Pulmonary Note: Call Message Caller: Patient Preferred contact: Portal Authorized: Yes Diagnosis: 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 Alternate diagnosis--Rule out vasculitis , other autoimmune conditions, fungal infection ??Chronic sinus symptoms, persistent cough and SOB ??Childhood asthma ??Abnormal urinalysis ??Non specific arthralgia, rash and fever Last Appointment: 07/04/2023 Message: Patient called with her mess attendant asking for clarification about her new CRP Blood test orders. Patient just had this test done and is asking for clarification on whether or not she isneeding another test, or if something came up that was abnormal with her last test. Action Requested: Please message patient via the portal with clarification and results of her testing. Additional Notes: Patient uses an mold closer helper. S INSPECTOR documented in this encounter Plan of Treatment Upcoming Encounters Date Type Department Care Team (Late st Contact Info) Description 09/06/2023 1:30 PM CDT Office Visit Department of Otorhinolaryngology in [place], [place] [address] [place] [phone] Scotty Robledo P.A.-C., M.S. [address] [place] [phone] Scheduled Referrals Name Type Priority Associated Diagnoses Order Schedule Otorhinolaryngology - General non-surgical consult (clinic) Outpatient Referral Routine Nodules Pulmonary Multiple Expected: 07/06/2023 (Approximate), Expires: 10/03/2024 documented as of this encounter Results * Complement C4 (07/16/2023 9:02 AM PARTS INSPECTOR) Complement C4, S 35 14 - 40 mg/dL 07/16/2023 2:52 PM PARTS INSPECTOR [facility] Blood (Blood, Venous) 07/16/2023 9:02 AM PARTS INSPECTOR 07/16/2023 1:31 PM PARTS INSPECTOR Celestino Triana LAB BLOOD ADD-ON [facility] [address] [place] [address] [facility] [address] [place] [address] * Complement C3 (07/16/2023 9:02 AM PARTS INSPECTOR) Complement C3, S 157 75 - 175 mg/dL 07/16/2023 2:52 PM PARTS INSPECTOR [facility] Blood (Blood, Venous) 07/16/2023 9:02 AM PARTS INSPECTOR 07/16/2023 1:31 PM PARTS INSPECTOR Celestino JuarezB.S. LAB BLOOD ADD-ON [facility] [address] [place] [address] [facility] [address] [place] [address] * Glomerular Basement Membrane Antibodies, IgG (07/16/2023 9:02 AM PARTS INSPECTOR) Pathologist [facility] Glomerular Basement Membrane IgG Ab <0.2 <1.0 (Negative) U 07/16/2023 2:46 PM PARTS INSPECTOR [facility] Blood (Blood, Venous) 07/16/2023 9:02 AM PARTS INSPECTOR 07/16/2023 12:50 PM PARTS INSPECTOR Celestino Shankar.B.S. LAB BLOOD ADD-ON Performing Organization Address City/[facility]/ZIP Co de Phone Number [facility] [address] [place] [address] [facility] [address] [place] [address] * Cryoglobulin (07/16/2023 9:02 AM PARTS INSPECTOR) Pathologist [facility] Cryoglobulin , S Negative. This test is negative at 24 hours. All samples are held and reviewed again at 7 days. If delayed precipitation occurs after 7 days, Immunofixation will be performed and an additional report will follow. Negative %ppt 07/19/2023 11:48 AM PARTS INSPECTOR [facility] Blood (Blood, Venous) 07/16/2023 9:02 AM PARTS INSPECTOR 07/16/2023 1:31 PM PARTS INSPECTOR Celestino Shankar.B.S. LAB BLOOD NON ADD -ON [facility] [address] [place] [address] [facility] [address] [place] [address] [place] [address] documented in this encounter Visit Diagnoses Diagnosis Nodules Pulmonary Multiple- Primary documented in this encounter Additional Health Concerns Assessment Noted Time PHQ-9 Depression Total Score: 5 12/06/19 20 10:06 AM CDT documented as of this encounter Care Teams Casting Director Relationship Specialty Start Date End Date Elsewhere, Pcp PCP - General Internal Medicine 06/28/23 documented as of this encounter
--- OUTSIDE RECORDS SUMMARY | 2023-09-05 07:28 | XMS_ITS | Encounter Summary ---
Author Name Unknown Organization [facility] Address [address] [place] [address] Care Team Providers Care Principal Statistical Programmer Name Role Phone Elsewhere, Pcp Primary Care Provider Unavailabl e Encounter Details Date Type Department Care Team (Late st Contact Info) Description 07/07/2023 Clinical Communication Division of Pulmonary Medicine in [place], [place] [address] [place] [phone] Celestino Hudson M.B.B.S. [address] [place] [address] Social History Tobacco Use Types Packs/Day Years Used Date Smoking Tobacco: Never Smokeless Tobacco: Never Alcohol Use Standard Drinks/Week Comments No 0 (1 standard drink = 0.6 oz pur e alcohol) [facility] Utilities Answer Date Recorded In the past 12 months has [facility], gas, oil, or water [facility] threatened to shut off services in your [...] often do you attend chur ch or mu-ism services? 1 to 4 times per year 07/01/2019 Do you belong to any clubs o r organizations such as gnosticist groups, unions, fraternal or athletic groups, or [...] Answer Date Recorded PHQ-2 Score 1 12/06/2019 [facility] - Occupational Stress Questionnaire Answer Date [...] Answer Date Recorded Employment status Unemployed/not in [employer] paid workforce and NOT seeking employment 06/28/2023 Housing Stability Answer Date Recorded What is your living situation today? I have a [facility] place to live 06/28/2023 Education Answer Date Recorded What is the highest level of school you have completed or the highest degree you have received? GED or equivalent Sex and Gender Information Value Date Recorded Sex Assigned at Female 06/28/2023 7:21 PM GOVERNMENT MINISTER Gender Identity Female 07/01/2019 7:57 PM GOVERNMENT MINISTER Sexual Orientation Straight 07/01/2019 7: 57 PM GOVERNMENT MINISTER documented as of this encounter Miscellaneous Notes * Telephone Encounter - Lizbeth Samuelsjanelle Rabago - 07/07/2023 9:18 AM CST [facility] called re: the prednisone Rx stating that there are two different directions listed. One of the directions states 15 mg (0.75). Please let them know which directions are correct. [phone] Note to Pharmacy: prednisone taper dose as follows 40 mg daily x 2 weeks, 30 mg daily x 2 weeks, 20mg daily x 4 weeks, 15 mg daily x 2 weeks, 10 mg daily x 2 weeks--> reassess Sig: Take 2 tablets (40 mg total) by mouth daily for 14 days, THEN 1.5 tablets (30 mg total) daily for 14 days, THEN 1 tablet (20 mg total) daily for 28 days, THEN 0.5 tablets (10 mg total) daily for14 days. RNMENT MINISTER documented in this encounter Plan of Treatment Upcoming Encounters Date Type Department Care Team (Late st Contact Info) Description 09/06/2023 1:30 PM CDT Office Visit Department of Otorhinolaryngology in [place], [place] [address] [place] [phone] Scotty Robledo P.A.-C., M.S. [address] [place] [address] documented as of this encounter Visit Diagnoses Not on filedocumented in this encounter Additional Health Concerns Assessment Noted Time PHQ-9 Depression Total Score: 5 12/06/19 20 10:06 AM CDT documented as of this encounter Care Teams Principal Statistical Programmer Relationship Specialty Start Date End Date Elsewhere, Pcp PCP - General Internal Medicine 06/28/23 documented as of this encounter
--- OUTSIDE RECORDS SUMMARY | 2023-09-05 07:28 | XMS_ITS | Encounter Summary ---
Author Name Unknown Organization [facility] Address [address] [place] [address] Care Team Providers Care Warrant Clerk Name Role Phone Elsewhere, Pcp Primary Care Provider Unavailabl e Encounter Details Date Type Department Care Team (Latest Contact Info) Description 07/16/2023 8:46 AM SEISMOGRAPH OBSERVER - 07/16/2023 11:59 PM SEISMOGRAPH OBSERVER Hospital Encounter Department of Laboratory Medicine and Pathology, [facility], in [place], [place] [address] [place] [phone] Celestino Hudson M.B.B.S. [address] [place] [phone] Nodules Pulmonary Multiple Discharge Disposition: Home or Self Care Social History Tobacco Use Types Packs/Day Years Used Date Smoking Tobacco: Never Smokeless Tobacco: Never Alcohol Use Standard Drinks/Week Comments No 0 (1 standard drink = 0.6 oz pur e alcohol) [facility] Utilities Answer Date Recorded In the past 12 months has [facility] [employer], oil, or water [employer] threatened to shut off services in your [...] How often do you attend chur or mandaeism services? 1 to 4 times per year 07/01/2019 Do you belong to any clubs o r organizations such as cheondoism groups, unions, fraternal or athletic groups, or [...] Answer Date Recorded PHQ-2 Score 1 12/06/2019 [facility] - Occupational [...] Answer Date Recorded Employment status Unemployed/not in [employer] paid workforce and NOT seeking employment 06/28/2023 Housing Stability Answer Date Recorded What is your living situation today? I have a [facility] place to live 06/28/2023 Education Answer Date Recorded What is the highest level of school you have completed or the highest degree you have received? GED or equivalent Sex and Gender Information Value Date Recorded Sex Assigned at Female 06/28/2023 7:21 PM SEISMOGRAPH OBSERVER Gender Identity Female 07/01/2019 7:57 PM SEISMOGRAPH OBSERVER Sexual Orientation Straight 07/01/2019 7: 57 PM SEISMOGRAPH OBSERVER documented as of this encounter Medications at Time of Discharge Medication Sig Dispensed Refills Start Date End Date acetaminophen (TYLENOL) 500 mg tablet Take 1,000 mg by mouth as needed. 01/26/2020 alcohol swabs pads, medicated Use as needed for diabetes control 1500 each 3 12/14/2019 atovaquone (MEPRON) 750 mg/5 mL suspension Take 10 mL (1,500 mg total) by mouth daily with breakfast. 1000 mL 07/06/2023 10/14/2023 blood glucose ctl high,nml,low solution Glucose control solution provides an easy way to ensure accurate blood glucose testing. 1 each 12/14/2019 blood-glucose meter misc Test as directed for gestational diabetes. 1 each 12/14/2019 breast pump device Electric breast pump for home use. Gestation age at delivery: 35 weeks. Reason for need: lactating. Length of need: 12 months 01/26/2020 cholecalciferol, vitamin D3, (cholecalciferol) 1,000 Unit tablet Take 1 tablet (1,000 Units total) by mouth daily. 60 tablet 3 12/13/2019 ibuprofen (ADVIL,MOTRIN) 600 mg tablet Take 600 mg by mouth as needed. 01/26/2020 predniSONE (DELTASONE) 20 mg tablet Take 2 tablets (40 mg total) by mouth daily for 14 days, THEN 1.5 tablets (30 mg total) daily for 14 days, THEN 1 tablet (20 mg total) daily for 28 days, THEN 0.5 tablets (10 mg total) daily for 14 days. 84 tablet 07/06/2023 09/14/2023 [id number]-Yu-[id number]-FA (VINATE ONE) 60 mg iron-1 mg per tablet Take 1 tablet by mouth daily. sennosides (SENOKOT) 8.6 mg tablet Take 8.6-17.2 mg by mouth. 01/26/2020 documented as of this encounter Plan of Treatment Upcoming Encounters Date Type Department Care Team (Late st Contact Info) Description 09/06/2023 1:30 PM CDT Office Visit Department of Otorhinolaryngology in [place], [place] [address] [place] [address] Scotty Robledo P.A.-C., M.S. [address] [place] [phone] documented as of this encounter Procedures Procedure Name Priority Date/Time Associated Diagnosis Comments GLOMERULAR BASEMENT MEMBRANE, ABS, IGG, S Routine 07/16/2023 9:02 AM SEISMOGRAPH OBSERVER Nodules Pulmonary Multiple CRYOGLOBULIN, S Routine 07/16/2023 9:02 AM SEISMOGRAPH OBSERVER Nodules Pulmonary Multiple COMPL C3, S Routine 07/16/2023 9:02 AM SEISMOGRAPH OBSERVER Nodules Pulmonary Multiple COMPLEMENT C4, S Routine 07/16/2023 9:02 AM SEISMOGRAPH OBSERVER Nodules Pulmonary Multiple documented in this encounter Results * Complement C4 (07/16/2023 9:02 AM SEISMOGRAPH OBSERVER) Complement C4, S 35 14 - 40 mg/dL 07/16/2023 2:52 PM SEISMOGRAPH OBSERVER [facility] Blood (Blood, Venous) 07/16/2023 9:02 AM SEISMOGRAPH OBSERVER 07/16/2023 1:31 PM SEISMOGRAPH OBSERVER Celestino Shankar.B.S. LAB BLOOD ADD-ON Performing Organization Address City/[facility]/ZIP Co de Phone Number [facility] [address] [place], [place] [id number] [place] [address] [place] [address] * Complement C3 (07/16/2023 9:02 AM SEISMOGRAPH OBSERVER) Complement C3, S 157 75 - 175 mg/dL 07/16/2023 2:52 PM SEISMOGRAPH OBSERVER [facility] Blood (Blood, Venous) 07/16/2023 9:02 AM SEISMOGRAPH OBSERVER 07/16/2023 1:31 PM SEISMOGRAPH OBSERVER Celestino Shankar.B.S. LAB BLOOD ADD-ON Performing Organization Address [facility] Co de Phone Number [facility] [address] [place] [address] [facility] [address] [place] [address] * Glomerular Basement Membrane Antibodies, IgG (07/16/2023 9:02 AM SEISMOGRAPH OBSERVER) Glomerular Basement Membrane IgG Ab <0.2 <1.0 (Negative) U 07/16/2023 2:46 PM SEISMOGRAPH OBSERVER [facility] Blood (Blood, Venous) 07/16/2023 9:02 AM SEISMOGRAPH OBSERVER 07/16/2023 12:50 PM SEISMOGRAPH OBSERVER Celestino PorrasB.B.S. LAB BLOOD ADD-ON Performing Organization Address City/[facility]/ZIP Co de Phone Number [facility] [address] [place] [address] [facility] [address] [place] [address] * Cryoglobulin (07/16/2023 9:02 AM SEISMOGRAPH OBSERVER) Cryoglobulin , S Negative. This test is negative at 24 hours. All samples are held and reviewed again at 7 days. If delayed precipitation occurs after 7 days, Immunofixation will be performed and an additional report will follow. Negative %ppt 07/19/2023 11:48 AM SEISMOGRAPH OBSERVER [facility] Blood (Blood, Venous) 07/16/2023 9:02 AM SEISMOGRAPH OBSERVER 07/16/2023 1:31 PM SEISMOGRAPH OBSERVER Celestino Triana LAB BLOOD NON ADD -ON Performing Organization Address City/[facility] Co de Phone Number [facility] [address] [address] [place] [phone] [place] [address] [place] [address] documented in this encounter Visit Diagnoses Diagnosis Nodules Pulmonary Multiple documented in this encounter Additional Health Concerns Assessment Noted Time PHQ-9 Depression Total Score: 5 12/06/19 20 10:06 AM CDT documented as of this encounter Care Teams Warrant Clerk Relationship Specialty Start Date End Date Elsewhere, Pcp PCP - General Internal Medicine 06/28/23 documented as of this encounter
--- OUTSIDE RECORDS SUMMARY | 2023-09-05 07:28 | XMS_ITS | Encounter Summary ---
Author Name Unknown Organization [facility] Address [address] [place] [address] Care Team Providers Care Veneer Stock Layer Name Role Phone Elsewhere, Pcp Primary Care Provider Unavailabl e Encounter Details Date Type Department Care Team (Late st Contact Info) Description 07/04/2023 Orders Only Division of Pulmonary Medicine in [place], [place] [address] [place] [phone] Celestino Hudson M.B.B.S. [address] [place] [phone] Nodules Pulmonary Multiple (Primary Dx) Social History Tobacco Use Types Packs/Day Years Used Date Smoking Tobacco: Never Smokeless Tobacco: Never Alcohol Use Standard Drinks/Week Comments No 0 (1 standard drink = 0.6 oz pur e alcohol) [facility] Utilities Answer Date Recorded In the past 12 months has [facility] [employer], gas, oil, or water [employer] threatened to shut off services in your [...] often do you attend chur ch or bahai services? 1 to 4 times per year 07/01/2019 Do you belong to any clubs o r organizations such as advent groups, unions, fraternal or athletic groups, or [...] Answer Date Recorded PHQ-2 Score 1 12/06/2019 [facility] Questionnaire Answer Date [...] Answer Date Recorded Employment status Unemployed/not in [facility] paid workforce and NOT seeking employment 06/28/2023 Housing Stability Answer Date Recorded What is your living situation today? I have a [facility] place to live 06/28/2023 Education Answer Date Recorded What is the highest level of school you have completed or the highest degree you have received? GED or equivalent Sex and Gender Information Value Date Recorded Sex Assigned at Female 06/28/2023 7:21 PM DOCK GRADER Gender Identity Female 07/01/2019 7:57 PM DOCK GRADER Sexual Orientation Straight 07/01/2019 7: 57 PM DOCK GRADER documented as of this encounter Plan of Treatment Upcoming Encounters Date Type Department Care Team (Late st Contact Info) Description 09/06/2023 1:30 PM CDT Office Visit Department of Otorhinolaryngology in [place], [place] [address] [place] [address] Scotty Robledo P.A.-C., M.S. [address] [place] [address] documented as of this encounter Visit Diagnoses Diagnosis Nodules Pulmonary Multiple- Primary documented in this encounter Additional Health Concerns Assessment Noted Time PHQ-9 Depression Total Score: 5 12/06/19 20 10:06 AM CDT documented as of this encounter Care Teams Veneer Stock Layer Relationship Specialty Start Date End Date Elsewhere, Pcp PCP - General Internal Medicine 06/28/23 documented as of this encounter
--- OUTSIDE RECORDS SUMMARY | 2023-09-05 07:28 | XMS_ITS | Referral Summary ---
Author Name Unknown Organization [facility] Address [address] [place] [id number] Care Team Providers Care Drilling Engineer Name Role Phone Elsewhere, Pcp Primary Care Provider Unavailabl e Source Comments Patient records contain information from all sites at [facility]. For routine questions regarding patient records, call [phone] during business hours, M-F 8:00 AM - 5:00 PM Central Time. Record requests for emergency care only can be directed to [phone] at any time.[facility] Encounters Date Type Department Care Team Description 09/01/2023 Orders Only Department of Otorhinolaryngology in [place], [place] [address] [place] [address] Estephania Linda, R.N. 08/27/2023 Orders Only Division of Pulmonary Medicine in [place], [place] [address] [place] [phone] Krishan Jeffrey M.B.B.S. Nodules Pulmonary Multiple 07/16/2023 10:10 AM ASSISTANT PRESS OPERATOR OFFSET Ancillary Procedure Department of Otorhinolaryngology 07/16/2023 8:46 AM ASSISTANT PRESS OPERATOR OFFSET - 07/16/2023 11:59 PM ASSISTANT PRESS OPERATOR OFFSET Hospital Encounter Department of Laboratory Medicine and Pathology, [facility], in [place], [place] [address] [place] [address] Celestino Hudson M.B.B.S. Nodules Pulmonary Multiple Discharge Disposition: Home or Self Care 07/16/2023 10:00 AM ASSISTANT PRESS OPERATOR OFFSET Comprehensive Visit Department of Otorhinolaryngology in [place], [place] [address] [place] [address] Maxwell Townsend APRN, C.N.P., M.S.N. Congestion Sinus (Primary Dx); Nodules Pulmonary Multiple; Drip Post Nasal 07/07/2023 Clinical Communication Division of Pulmonary Medicine in [place], [place] [address] [place] [address] Celestino Hudson, M.B.B.S. 07/05/2023 Clinical Communication Division of Pulmonary Medicine in [place], [place] [address] [place] [address] Celestino Hudson, M.B.B.S. Follow-up Orders 07/04/2023 Orders Only Division of Pulmonary Medicine in [place], [place] [address] [place] [phone] Celestino Hudson, M.B.B.S. Nodules Pulmonary Multiple (Primary Dx) 07/04/2023 Clinical Communication Division of Pulmonary Medicine in [place], [place] [address] [place] [address] Celestino Hudson, M.B.B.S. 07/04/2023 Documentation Division of Pulmonary Medicine in [place], [place] [address] [place] [address] Celestino Hudson, M.B.B.S. 07/04/2023 Orders Only Division of Pulmonary Medicine in [place], [place] [address] [place] [address] Celestino Hudson, M.B.B.S. Nodules Pulmonary Multiple (Primary Dx) 07/04/2023 Orders Only Division of Pulmonary Medicine in [place], [place] [address] [place] [address] Celestino Hudson, M.B.B.S. Nodules Pulmonary Multiple (Primary Dx) 07/04/2023 Orders Only Division of Pulmonary Medicine in [place], [place] [address] [place] [phone] Celestino Hudson, M.B.B.S. Nodules Pulmonary Multiple (Primary Dx) 07/03/2023 Orders Only Division of Pulmonary Medicine in [place], [place] [address] [place] [address] Celestino Hudson M.B.B.S. Nodules Pulmonary Multiple (Primary Dx) 07/02/2023 12:42 PM ASSISTANT PRESS OPERATOR OFFSET - 07/02/2023 11:59 PM ASSISTANT PRESS OPERATOR OFFSET Hospital Encounter Department of Radiology, [facility] in [place], [place] [address] [place] [phone] Celestino Hudson M.B.B.S. Nodules Pulmonary Multiple Discharge Disposition: Home or Self Care 06/29/2023 9:54 AM ASSISTANT PRESS OPERATOR OFFSET - 06/29/2023 11:59 PM ASSISTANT PRESS OPERATOR OFFSET Hospital Encounter Department of Laboratory Medicine and Pathology, [facility] in [place], [place] [address] [place] [phone] Krishan Jeffrey M.B.B.S. Lung Interstitial Disease (HCC) Discharge Disposition: Home or Self Care 06/29/2023 3:00 PM ASSISTANT PRESS OPERATOR OFFSET Comprehensive Visit Division of Pulmonary Medicine in [address] [address] Krishan Jeffrey M.B.B.S. Nodules Pulmonary Multiple (Primary Dx) 06/28/2023 3:15 PM ASSISTANT PRESS OPERATOR OFFSET Clinical Communication Virtual Review in [address] [address] Pre-visit Intake 06/26/2023 Orders Only Division of Pulmonary Medicine in [address] [address] Celestino Hudson M.B.B.S. Nodule Pulmonary (Primary Dx) 06/26/2023 10:30 PM ASSISTANT PRESS OPERATOR OFFSET Ancillary Procedure Department of Radiology in [place], [place] [address] [place] [phone] Celestino Hudson M.B.B.S. Dyspnea On Exertion 06/26/2023 Orders Only Division of Pulmonary Medicine in [address] [phone] Celestino Hudson, M.B.B.S. Dyspnea On Exertion (Primary Dx) 06/24/2023 Clinical Communication Division of Pulmonary Medicine in [address] [address] Krishan Jeffrey M.B.BJairS. OSM - Outside Materials 06/23/2023 Clinical Communication Division of Pulmonary Medicine in [place], [place] [address] [place] [address] Krishan Jeffrey M.B.BJairSJair Pre-visit Testing Orders from Last 3 Months Allergies Active Allergy Reactions Criticality Noted Date Comments Latex Other (see comments) 01/04/2008 Possible reaction, not confirmed Penicillins Hives (Reselect Reaction),Other (see comments) 01/04/2008 Sulfa (Sulfonamide Antibiotics) Other (see comments) 11/12/2009 Unknown reaction Medications Medication Sig Dispensed Refills Start Date End Date Status [id number]-FA (VINATE ONE) 60 mg iron-1 mg per [...] original. OB education completed. Pre-reg completed at [facility]. LMP:05/18/2019 EDC:02/22/2020 [facility] provider:Dr. Memo KING involved:, [place] Problem Noted Date Diagnosed Date [...] 34 weeks after pprom at 30 weeks. Immunizations Name Administration Dates Next Due 4vHPV [...] 0.6 oz pur e alcohol) [facility] Utilities Answer Date Recorded In the past 12 months has th e [employer], gas, oil, or water [employer] threatened to shut off services in your [...] often do you attend chur ch or jewish services? 1 to 4 times per year 07/01/2019 Do you belong to any clubs o r organizations such as adventism groups, unions, fraternal or athletic groups, or [...] Answer Date Recorded PHQ-2 Score 1 12/06/2019 [facility] of Occupat ional Health - Occupational Stress [...] living situation today? I have a [facility] place to live 06/28/2023 Education Answer Date Recorded What is the highest level of school you have completed or the highest degree you have received? GED or equivalent Sex and Gender Information Value Date Recorded Sex Assigned at Female 06/28/2023 7:21 PM ASSISTANT PRESS OPERATOR OFFSET Gender Identity Female 07/01/2019 7:57 PM ASSISTANT PRESS OPERATOR OFFSET Sexual Orientation Straight 07/01/2019 7: 57 PM ASSISTANT PRESS OPERATOR OFFSET Last Filed Vital Signs Vital Sign Reading Time Taken Comments Blood Pressure 151/107 06/29/2023 2:55 PM ASSISTANT PRESS OPERATOR OFFSET Pulse 113 06/29/2023 2:55 PM ASSISTANT PRESS OPERATOR OFFSET Temperature 36.6 ??C (97.8 ??F) 06/29/2023 2:55 PM CS T Respiratory Rate 16 05/19/2019 11:20 AM ASSISTANT PRESS OPERATOR OFFSET Oxygen Saturation 96% 06/29/2023 2:55 PM ASSISTANT PRESS OPERATOR OFFSET Inhaled Oxygen Concentration - - Weight 75.5 kg (166 lb 7.2 oz) 06/29/2023 2:55 P M ASSISTANT PRESS OPERATOR OFFSET Height 163.9 cm (5' 4.53) 06/29/2023 2:55 PM CS T Body Mass Index 28.11 06/29/2023 2:55 PM ASSISTANT PRESS OPERATOR OFFSET Plan of Treatment Upcoming Encounters Date Type Department Care Team (Late st Contact Info) Description 09/06/2023 1:30 PM CDT Office Visit Department of Otorhinolaryngology in [place], [place] [address] [place] [address] Scotty Robledo P.A.-C., M.S. [address] [place] [address] Procedures Procedure Name Priority Date/Time Associated Diagnosis Comments OTORHINOLARYNGOLOGY IMAGE EXAM Routine 07/16/2023 10:10 AM ASSISTANT PRESS OPERATOR OFFSET COMPLEMENT C4, S Routine 07/16/2023 9:02 AM ASSISTANT PRESS OPERATOR OFFSET Nodules Pulmonary Multiple COMPL C3, S Routine 07/16/2023 9:02 AM ASSISTANT PRESS OPERATOR OFFSET Nodules Pulmonary Multiple GLOMERULAR BASEMENT MEMBRANE, ABS, IGG, S Routine 07/16/2023 9:02 AM ASSISTANT PRESS OPERATOR OFFSET Nodules Pulmonary Multiple CRYOGLOBULIN, S Routine 07/16/2023 9:02 AM ASSISTANT PRESS OPERATOR OFFSET Nodules Pulmonary Multiple CT SINUSES WITHOUT IV CONTRAST RAD - Routine (most inpatients and all outpatients) 07/02/2023 1:20 PM ASSISTANT PRESS OPERATOR OFFSET Nodules Pulmonary Multiple ECG Routine 07/02/2023 12:30 PM ASSISTANT PRESS OPERATOR OFFSET Nodules Pulmonary Multiple DIPSTICK, U Routine 06/29/2023 4:55 PM ASSISTANT PRESS OPERATOR OFFSET VT OSMOLALITY ASSAY URINE Routine 06/29/2023 4:55 PM ASSISTANT PRESS OPERATOR OFFSET PH, RANDOM, U Routine 06/29/2023 4:55 PM ASSISTANT PRESS OPERATOR OFFSET MICROSCOPIC MANUAL Routine 06/29/2023 4:55 PM ASSISTANT PRESS OPERATOR OFFSET URINALYSIS WITH MICROSCOPIC Routine 06/29/2023 4:55 PM ASSISTANT PRESS OPERATOR OFFSET Nodules Pulmonary Multiple HISTOPLASMA AG, QUANT EIA, U Routine 06/29/2023 4:55 PM ASSISTANT PRESS OPERATOR OFFSET Nodules Pulmonary Multiple ANCA VASCULITIS PANEL, S Routine 4:49 PM ASSISTANT PRESS OPERATOR OFFSET Nodules Pulmonary Multiple MYOMARKER 3 PLUS PROFILE Routine 4:49 PM ASSISTANT PRESS OPERATOR OFFSET Nodules Pulmonary Multiple CYCLIC CITRULLINATED PEPTIDE ABS, IGG, S Routine 06/29/2023 4:49 PM ASSISTANT PRESS OPERATOR OFFSET Nodules Pulmonary Multiple ANTINUCLEAR AB, HEP-2, SUBSTRATE, S Routine 06/29/2023 4:49 PM ASSISTANT PRESS OPERATOR OFFSET Nodules Pulmonary Multiple AB TO EXTRACTABLE NUCLEAR AG EVAL, S Routine 06/29/2023 4:49 PM ASSISTANT PRESS OPERATOR OFFSET Nodules Pulmonary Multiple HISTOPLASMA AB Routine 06/29/2023 4:49 PM ASSISTANT PRESS OPERATOR OFFSET Nodules Pulmonary Multiple QUANTIFERON-TB GOLD PLUS, B Routine 06/29/2023 4:49 PM ASSISTANT PRESS OPERATOR OFFSET Nodules Pulmonary Multiple PULMONARY FUNCTION TESTS Routine 10:36 AM ASSISTANT PRESS OPERATOR OFFSET Lung Interstitial Disease (HCC) COMPREHENSIVE METABOLIC PANEL, S/P Routine 06/29/2023 10:08 AM ASSISTANT PRESS OPERATOR OFFSET Lung Interstitial Disease (HCC) CBC WITH DIFFERENTIAL, B Routine 10:08 AM ASSISTANT PRESS OPERATOR OFFSET Lung Interstitial Disease (HCC) C-REACTIVE PROTEIN (CRP), S/P Routine 06/29/2023 10:04 AM ASSISTANT PRESS OPERATOR OFFSET Nodules Pulmonary Multiple INTERPRETATION OF OUTSIDE CT CHEST RAD - Routine (most inpatients and all outpatients) 06/27/2023 5:59 AM ASSISTANT PRESS OPERATOR OFFSET Dyspnea On Exertion OUTSIDE CT BODY Routine 06/18/2023 4:10 PM ASSISTANT PRESS OPERATOR OFFSET EXTI LIPID PANEL, S Routine 05/16/2019 11:40 AM ASSISTANT PRESS OPERATOR OFFSET from Last 3 Months or Most Recently Relevant to Health Maintenance Results * Nasal Endoscopy-Otorhinolaryngology Image Exam (07/16/2023 10:10 AM ASSISTANT PRESS OPERATOR OFFSET) 07/16/2023 10:0 9 AM ASSISTANT PRESS OPERATOR OFFSET Narrative IIMS - 07/16/2023 10:40 AM ASSISTANT PRESS OPERATOR OFFSET This order has been created and auto-finalized to support the import of images acquired without order. The clinical documentation to support these images can be found on the encounter that produced images. Provider Not In System IMG NON RAD IMAGI NG PROCEDURES IICO NA * Glomerular Basement Membrane Antibodies, IgG (07/16/2023 9:02 AM ASSISTANT PRESS OPERATOR OFFSET) Pathologist [facility] Glomerular Basement Membrane IgG Ab <0.2 <1.0 (Negative) U 07/16/2023 2:46 PM ASSISTANT PRESS OPERATOR OFFSET [facility] Blood (Blood, Venous) 07/16/2023 9:02 AM ASSISTANT PRESS OPERATOR OFFSET 07/16/2023 12:50 PM ASSISTANT PRESS OPERATOR OFFSET Celestino JuarezBJairSJair LAB BLOOD ADD-ON [facility] [address] [place] [address] [facility] [address] [place] [address] * Cryoglobulin (07/16/2023 9:02 AM ASSISTANT PRESS OPERATOR OFFSET) Pathologist [facility] Cryoglobulin , S Negative. This test is negative at 24 hours. All samples are held and reviewed again at 7 days. If delayed precipitation occurs after 7 days, Immunofixation will be performed and an additional report will follow. Negative %ppt 07/19/2023 11:48 AM ASSISTANT PRESS OPERATOR OFFSET [facility] Blood (Blood, Venous) 07/16/2023 9:02 AM ASSISTANT PRESS OPERATOR OFFSET 07/16/2023 1:31 PM ASSISTANT PRESS OPERATOR OFFSET Celestino Shankar.B.S. LAB BLOOD NON ADD -ON [facility] [address] [place] [address] [facility] [address] [place] [address] [place] [address] * Complement C3 (07/16/2023 9:02 AM ASSISTANT PRESS OPERATOR OFFSET) Complement C3, S 157 75 - 175 mg/dL 07/16/2023 2:52 PM ASSISTANT PRESS OPERATOR OFFSET [facility] Blood (Blood, Venous) 07/16/2023 9:02 AM ASSISTANT PRESS OPERATOR OFFSET 07/16/2023 1:31 PM ASSISTANT PRESS OPERATOR OFFSET Celestinosarahi PorrasB.B.S. LAB BLOOD ADD-ON Performing Organization Address City/[facility] Co de Phone Number [facility] [address] [place] [address] [facility] [address] [place] [address] * Complement C4 (07/16/2023 9:02 AM ASSISTANT PRESS OPERATOR OFFSET) Complement C4, S 35 14 - 40 mg/dL 07/16/2023 2:52 PM ASSISTANT PRESS OPERATOR OFFSET [facility] Blood (Blood, Venous) 07/16/2023 9:02 AM ASSISTANT PRESS OPERATOR OFFSET 07/16/2023 1:31 PM ASSISTANT PRESS OPERATOR OFFSET Celestinosarahi Shankar.B.S. LAB BLOOD ADD-ON Performing Organization Address City/[facility]/ZIP Co de Phone Number [facility] [address] [place] [address] [facility] [address] [place] [address] * CT Sinuses without IV Contrast (07/02/2023 1:20 PM ASSISTANT PRESS OPERATOR OFFSET) Anatomical Region Laterality Modality Head, Neuroradiology RST LOS , Neuroradiology ARZ LOS, Neuroradiology FLA LOS N/A Computed Tomography, Compute d Tomography Impressions 07/02/2023 2:36 PM ASSISTANT PRESS OPERATOR OFFSET Acute paranasal sinus inflammation, most prominently involving the bilateral maxillary sinuses and sinus outlets as described. Narrative 07/02/2023 2:36 PM ASSISTANT PRESS OPERATOR OFFSET EXAM: CT SINUSES WITHOUT IV CONTRAST COMPARISON: [...] sinuses and sinus outlets as described. Celestino Hudson M.B.B.S. IMG CT PROCEDURES * ECG 12 Lead (07/02/2023 12:30 PM ASSISTANT PRESS OPERATOR OFFSET) Pathologist [facility] Ventricular Rate ECG/Min 88 BPM MUSE VT Interval 148 ms MUSE QRSD Interval 88 ms MUSE QT Interval 374 ms MUSE QTC Interval 452 ms MUSE P [place] 32 degrees MUSE R [place] 1 degrees MUSE T Wave [place] 22 degrees MUSE 07/02/2023 12:3 0 PM ASSISTANT PRESS OPERATOR OFFSET 07/02/2023 12:50 PM ASSISTANT PRESS OPERATOR OFFSET Impressions MUSE - 07/02/2023 12:50 PM ASSISTANT PRESS OPERATOR OFFSET Normal sinus rhythm Moderate voltage criteria for LVH, may be normal variant No previous ECGs available Reviewed by MARY Hightower Narrative Procedure Note Giovanni Suero Jr., M.D. - 07/02/2023 IMPRESSION: Normal sinus rhythm Moderate voltage criteria for LVH, may be normal variant No previous ECGs available Reviewed by MARY Hightower Celestino Her.B.B.S. ECG ORDERABLES MUSE NA * Histoplasma Antigen, Quantitative EIA, Urine (06/29/2023 4:55 PM ASSISTANT PRESS OPERATOR OFFSET) [facility] Histoplasma Ag Result Not Detected Not Detected 06/30/2023 2:49 PM ASSISTANT PRESS OPERATOR OFFSET [facility] Comment: No Histoplasma antigen detected. ?? False negative results may occur. ??Repeat testing on a new specimen should be considered if clinically indicated. ?? Histoplasma Ag Value Not Detected ng/mL 06/30/2023 2:49 PM ASSISTANT PRESS OPERATOR OFFSET SDS Comment: ----ADDITIONAL INFORMATION---- This test has been modified from the sales communications manager's instructions. Its performance characteristics were determined by [facility] in a manner consistent with CLIA requirements. This test has not been cleared or approved by the U.S. Food and Drug Administration. Urine (Urine, Midstream) 06/29/2023 4:55 PM ASSISTANT PRESS OPERATOR OFFSET 06/29/2023 7:54 PM ASSISTANT PRESS OPERATOR OFFSET Celestino Hipolito Tristan M.B.B.S. LAB URINE ORDERAB LES Performing Organization Address City/[facility]/ZIP Co de Phone Number [facility] [address] [place] [address] [facility] [address] [place] [address] * Osmolality, Urine (06/29/2023 4:55 PM ASSISTANT PRESS OPERATOR OFFSET) Pathologist [facility] Osmolality, U 688 150 - 1150 mOsm/kg 06/29/2023 8:11 PM ASSISTANT PRESS OPERATOR OFFSET DTL Urine 06/29/2023 4:55 PM ASSISTANT PRESS OPERATOR OFFSET 06/29/2023 5:06 PM ASSISTANT PRESS OPERATOR OFFSET Celestino D Tristan M.B.B.S. LAB URINE ORDERAB LES Performing Organization Address [facility] Co de Phone Number [facility] [address] [place] [address], [address] [address] * (ABNORMAL) Dipstick, Urine (06/29/2023 4:55 PM ASSISTANT PRESS OPERATOR OFFSET) Hemoglobin, QL, U Large(A) Negative 06/29/2023 5:32 PM ASSISTANT PRESS OPERATOR OFFSET DTL Leukocyte Esterase, U Negative Negative 06/29/2023 5:32 PM ASSISTANT PRESS OPERATOR OFFSET DTL Nitrite, U Negative Negative 06/29/2023 5:32 PM ASSISTANT PRESS OPERATOR OFFSET DTL Ketone, U Negative Negative mg/dL 06/29/2023 5:32 PM ASSISTANT PRESS OPERATOR OFFSET DTL Glucose, U Negative Negative mg/dL 06/29/2023 5:32 PM ASSISTANT PRESS OPERATOR OFFSET DTL Urine 06/29/2023 4:55 PM ASSISTANT PRESS OPERATOR OFFSET 06/29/2023 5:06 PM ASSISTANT PRESS OPERATOR OFFSET Celestino D Tristan M.B.B.S. LAB URINE ORDERAB LES [facility] [address] [place] [address] * pH, Random, Urine (06/29/2023 4:55 PM ASSISTANT PRESS OPERATOR OFFSET) pH, Random, U 6.7 4.5 - 8.0 06/29/2023 8:11 PM ASSISTANT PRESS OPERATOR OFFSET DTL Urine 06/29/2023 4:55 PM ASSISTANT PRESS OPERATOR OFFSET 06/29/2023 5:06 PM ASSISTANT PRESS OPERATOR OFFSET Celestino Her.B.B.S. LAB URINE ORDERAB LES Performing Organization Address [facility] [place] [address] * (ABNORMAL) Microscopic Manual (06/29/2023 4:55 PM ASSISTANT PRESS OPERATOR OFFSET) Microscopy Abnormal 06/29/2023 7:34 PM ASSISTANT PRESS OPERATOR OFFSET DTL RBC 31-40(A) <3 /hpf 06/29/2023 7:34 PM ASSISTANT PRESS OPERATOR OFFSET DTL Dysmorphic RBC <25 <25 % 06/29/2023 7:34 PM ASSISTANT PRESS OPERATOR OFFSET DTL WBC None Seen /hpf 06/29/2023 7:34 PM ASSISTANT PRESS OPERATOR OFFSET DTL Comment: ----REFERENCE VALUE---- <4 ??(Males) <11 (Females) Squamous Epithelial Cells, U 4-10 /hpf 06/29/2023 7:34 PM ASSISTANT PRESS OPERATOR OFFSET DTL Urine 06/29/2023 4:55 PM ASSISTANT PRESS OPERATOR OFFSET 06/29/2023 5:06 PM ASSISTANT PRESS OPERATOR OFFSET Celestino PorrasB.B.S. LAB URINE ORDERAB LES Performing Organization Address City/[facility]/ZIP Co de Phone Number [address] DTL [facility] [address] [place] [address] * (ABNORMAL) Urinalysis, with Microscopic: Urine, Midstream (06/29/2023 4:55 PM ASSISTANT PRESS OPERATOR OFFSET) Source Midstream 06/29/2023 5:06 PM ASSISTANT PRESS OPERATOR OFFSET DTL Color, U Yellow 06/29/2023 5:06 PM ASSISTANT PRESS OPERATOR OFFSET DTL Clarity, U Cloudy(A) 06/29/2023 5:06 PM ASSISTANT PRESS OPERATOR OFFSET DTL Protein, U 20 <26 mg/dL 06/29/2023 5:57 PM ASSISTANT PRESS OPERATOR OFFSET DTL Protein/Osmola lity 0.29 <0.42 ratio 06/29/2023 8:11 PM ASSISTANT PRESS OPERATOR OFFSET DTL Predicted 24 HR Protein, U 218 <229 mg/24 h 06/29/2023 8:11 PM ASSISTANT PRESS OPERATOR OFFSET DTL Predicted Range 54-882 mg/24 h 06/29/2023 8:11 PM ASSISTANT PRESS OPERATOR OFFSET DTL Urine (Urine, Midstream) 06/29/2023 4:55 PM ASSISTANT PRESS OPERATOR OFFSET 06/29/2023 5:06 PM ASSISTANT PRESS OPERATOR OFFSET Celestino Triana LAB URINE ORDERAB LES [id number] [place] [address] * MyoMarker 3 Plus Profile - Sent Out Lab (06/29/2023 4:49 PM ASSISTANT PRESS OPERATOR OFFSET) Pathologist [facility] Anti-Hanny-1 Ab <20 <20 Units 07/17/2023 5:08 PM ASSISTANT PRESS OPERATOR OFFSET ENDI Anti-PL-7 Ab Negative Negative 07/17/2023 5:08 PM ASSISTANT PRESS OPERATOR OFFSET ENDI Comment: This test was developed and its performance characteristics determined by [facility]. It has not been cleared or approved by the Food and Drug Administration. Anti-PL-12 Ab Negative Negative 07/17/2023 5:08 PM ASSISTANT PRESS OPERATOR OFFSET ENDI Comment: This test was developed and its performance characteristics determined by [facility]. It has not been cleared or approved by the Food and Drug Administration. Anti-EJ Ab Negative Negative 07/17/2023 5:08 PM ASSISTANT PRESS OPERATOR OFFSET ENDI Comment: This test was developed and its performance characteristics determined by [facility]. It has not been cleared or approved by the Food and Drug Administration. Anti-OJ Ab Negative Negative 07/17/2023 5:08 PM ASSISTANT PRESS OPERATOR OFFSET ENDI Comment: This test was developed and its performance characteristics determined by [facility]. It has not been cleared or approved by the Food and Drug Administration. Anti-SRP Ab Negative Negative 07/17/2023 5:08 PM ASSISTANT PRESS OPERATOR OFFSET ENDI Comment: This test was developed and its performance characteristics determined by [facility]. It has not been cleared or approved by the Food and Drug Administration. Glsk-Tr-0-Ab Negative Negative 07/17/2023 5:08 PM ASSISTANT PRESS OPERATOR OFFSET ENDI Comment: This test was developed and its performance characteristics determined by [facility]. It has not been cleared or approved by the Food and Drug Administration. Jhtt-OXN-7bpsvh Ab <20 <20 Units 2023 5:08 PM ASSISTANT PRESS OPERATOR OFFSET ENDI Comment: This test was developed and its performance characteristics determined by [facility]. It has not been cleared or approved by the Food and Drug Administration. Anti-MDA-5 Ab (CADM-140) <20 <20 Units 07/17/2023 5:08 PM ASSISTANT PRESS OPERATOR OFFSET ENDI Comment: This test was developed and its performance characteristics determined by [facility]. It has not been cleared or approved by the Food and Drug Administration. Anti-NXP-2 (P140) Ab <20 <20 Units 07/17/2023 5:08 PM ASSISTANT PRESS OPERATOR OFFSET ENDI Comment: This test was developed and its performance characteristics determined by [facility]. It has not been cleared or approved by the Food and Drug Administration. Anti-SAE1 Ab, IgG <20 <20 Units 024 5:08 PM ASSISTANT PRESS OPERATOR OFFSET ENDI Comment: This test was developed and its performance characteristics determined by [facility]. It has not been cleared or approved by the Food and Drug Administration. Anti-PM/Scl-100 Ab <20 <20 Units 2023 5:08 PM ASSISTANT PRESS OPERATOR OFFSET ENDI Comment: This test was developed and its performance characteristics determined by [facility]. It has not been cleared or approved by the Food and Drug Administration. Anti-Ku Ab Negative Negative 07/17/2023 5:08 PM ASSISTANT PRESS OPERATOR OFFSET ENDI Comment: This test was developed and its performance characteristics determined by [facility]. It has not been cleared or approved by the Food and Drug Administration. Anti-SS-A 52kD Ab, IgG <20 <20 Units 07/17/2023 5:08 PM ASSISTANT PRESS OPERATOR OFFSET ENDI Comment: This test was developed and its performance characteristics determined by [facility]. It has not been cleared or approved by the Food and Drug Administration. Anti-U1 CVT RN Ab <20 <20 Units 07/17/2023 5:08 PM ASSISTANT PRESS OPERATOR OFFSET ENDI Anti-U2 CVT RN Ab Negative Negative 07/17/2023 5:08 PM ASSISTANT PRESS OPERATOR OFFSET ENDI Comment: This test was developed and its performance characteristics determined by [facility]. It has not been cleared or approved by the Food and Drug Administration. Anti-U3 CVT RN (Fibrillarin) Negative Negative 07/17/2023 5:08 PM ASSISTANT PRESS OPERATOR OFFSET ENDI Comment: This test was developed and its performance characteristics determined by [facility]. It has not been cleared or approved by the Food and Drug Administration. ?Interpretation for Anti-Hanny-1, [id number], ?Anti-MDA-5, Anti-NXP-2, Anti-SAE1, Anti-PM/Scl-100, ?Anti-SS-A 52 kD, Anti-U1 CVT RN: ?Negative: ?<20 ?Weak Positive: ? 20 - 39 ?Moderate Positive: ? 40 - 80 ?Strong Positive: ? >80 ?. Blood (Blood, Venous) 06/29/2023 4:49 PM ASSISTANT PRESS OPERATOR OFFSET 06/30/2023 7:31 AM ASSISTANT PRESS OPERATOR OFFSET Celestino PaulsonS. LAB BLOOD NON ADD -ON [facility] [address] [place] [address], [facility] ENDI [facility] [address] [place] [address] * (ABNORMAL) Antinuclear Antibodies, HEp-2 Substrate, IgG, Serum (06/29/2023 4:49 PM ASSISTANT PRESS OPERATOR OFFSET) Antinuclear Ab, HEp-2 Substrate, S Positive 1:160(A) <1:80 (Negativ e) 06/30/2023 12:15 PM ASSISTANT PRESS OPERATOR OFFSET [facility] Comment: ----ADDITIONAL INFORMATION---- Method: Immunofluorescence using HEp-2 cellular substrate. PAU Titer: 1:160 06/30/2023 12:15 PM ASSISTANT PRESS OPERATOR OFFSET [facility] PAU Pattern: Speckled 06/30/2023 12:15 PM ASSISTANT PRESS OPERATOR OFFSET [facility] Blood (Blood, Venous) 06/29/2023 4:49 PM ASSISTANT PRESS OPERATOR OFFSET 06/29/2023 8:41 PM ASSISTANT PRESS OPERATOR OFFSET Celestino PaulsonS. LAB BLOOD ADD-ON Performing Organization Address City/[facility] Co de Phone Number [facility] [address] [place] [address] [facility] [address] [place] [address] * QuantiFERON-Tb Gold Plus, Blood (06/29/2023 4:49 PM ASSISTANT PRESS OPERATOR OFFSET) Pathologist [facility] QuantiFERON-TB Gold Plus Result Negative Negative 06/30/2023 1:23 PM ASSISTANT PRESS OPERATOR OFFSET [facility] Comment: No interferon-gamma response to M. tuberculosis antigens was detected. Latent infection with M. tuberculosis is unlikely. A single negative result does not exclude infection with M. tuberculosis. In patients at high risk for M.tuberculosis infection, a second test should be considered in accordance with the 2017 ATS/IDSA/CDC Clinical Practice Guidelines for Diagnosis of Tuberculosis in Adults and Children [Romy HILL et. al. Clin. Infect. Dis. 2017;64(2):111-115]. The reference range for the 'TB1 Ag minus Nil Result' and 'TB2 Ag minus Nil Result' is an Interferon-gamma level <0.35 IU/mL. TB1 Ag minus Nil Result 0.02 IU/mL 06/30/2023 1:23 PM ASSISTANT PRESS OPERATOR OFFSET [facility] TB2 Ag minus Nil Result 0.01 IU/mL 06/30/2023 1:23 PM ASSISTANT PRESS OPERATOR OFFSET [facility] Mitogen minus Nil Result 9.98 IU/mL 06/30/2023 1:23 PM ASSISTANT PRESS OPERATOR OFFSET [facility] Nil Result 0.02 IU/mL 06/30/2023 1:23 PM ASSISTANT PRESS OPERATOR OFFSET [facility] Blood (Blood, Venous) 06/29/2023 4:49 PM ASSISTANT PRESS OPERATOR OFFSET 06/29/2023 7:54 PM ASSISTANT PRESS OPERATOR OFFSET Narrative [facility] - 06/30/2023 1:23 PM ASSISTANT PRESS OPERATOR OFFSET Specimen Information: Specimen ID: [id number] Specimen Type: Blood Specimen Collection Start Date: 06/29/2023 ??4:49 PM Specimen Received Date: 06/29/2023 ??7:54 PM Specimen ID: [id number] Specimen Type: Blood Specimen Collection Start Date: 06/29/2023 ??4:49 PM Specimen Received Date: 06/29/2023 ??7:54 PM Specimen ID: [id number] Specimen Type: Blood Specimen Collection Start Date: 06/29/2023 ??4:49 PM Specimen Received Date: 06/29/2023 ??7:54 PM Specimen ID: [id number] Specimen Type: Blood Specimen Collection Start Date: 06/29/2023 ??4:49 PM Specimen Received Date: 06/29/2023 ??7:54 PM Celestino Triana LAB MICROBIOLOGY - BLOOD ORDERABLES [facility] [address] [place] [address] [place] [address] * ANCA (Antineutrophil Cytoplasmic Antibodies) Vasculitis Panel (06/29/2023 4:49 PM ASSISTANT PRESS OPERATOR OFFSET) Myeloperoxidase Ab, S <0.2 <0.4 (Negative ) U 07/05/2023 4:28 PM ASSISTANT PRESS OPERATOR OFFSET [facility] Proteinase 3 Ab (PR3), S <0.2 <0.4 (Negative ) U 07/05/2023 4:28 PM ASSISTANT PRESS OPERATOR OFFSET [facility] Blood (Blood, Venous) 06/29/2023 4:49 PM ASSISTANT PRESS OPERATOR OFFSET 07/05/2023 1:19 PM ASSISTANT PRESS OPERATOR OFFSET Celestino PaulsonS. LAB BLOOD ADD-ON [facility] [address] [place] [address] [facility] [address] [place] [address] * Antibody to Extractable Nuclear Antigen Evaluation (06/29/2023 4:49 PM ASSISTANT PRESS OPERATOR OFFSET) SS-A/Ro Ab, IgG, S <0.2 <1.0 (Negative) U 06/29/2023 9:06 PM ASSISTANT PRESS OPERATOR OFFSET [facility] SS-B/La Ab, IgG, S <0.2 <1.0 (Negative) U 06/29/2023 9:06 PM ASSISTANT PRESS OPERATOR OFFSET [facility] Sm Ab, IgG, S <0.2 <1.0 (Negative) U 06/29/2023 9:06 PM ASSISTANT PRESS OPERATOR OFFSET [facility] CVT RN Ab, IgG, S <0.2 <1.0 (Negative) U 06/29/2023 9:06 PM ASSISTANT PRESS OPERATOR OFFSET [facility] Scl 70 Ab, IgG, S <0.2 <1.0 (Negative) U 06/29/2023 9:06 PM ASSISTANT PRESS OPERATOR OFFSET [facility] Hanny 1 Ab, IgG, S <0.2 <1.0 (Negative) U 06/29/2023 9:06 PM ASSISTANT PRESS OPERATOR OFFSET [facility] Blood (Blood, Venous) 06/29/2023 4:49 PM ASSISTANT PRESS OPERATOR OFFSET 06/29/2023 7:52 PM ASSISTANT PRESS OPERATOR OFFSET Celestino D Tristan M.B.B.S. LAB BLOOD ADD-ON Performing Organization Address City/[facility] Co de Phone Number [facility] [address] [place] [address] [facility] [address] [place] [address] * Cyclic Citrullinated Peptide Antibodies, IgG (06/29/2023 4:49 PM ASSISTANT PRESS OPERATOR OFFSET) Pathologist [facility] Cyclic Citrullinated Peptide Ab, S <15.6 <20.0 (Negative) U 06/30/2023 10:35 AM ASSISTANT PRESS OPERATOR OFFSET [facility] Blood (Blood, Venous) 06/29/2023 4:49 PM ASSISTANT PRESS OPERATOR OFFSET 06/29/2023 7:51 PM ASSISTANT PRESS OPERATOR OFFSET Celestino JuarezB.S. LAB BLOOD ADD-ON Performing Organization Address [facility] de Phone Number [facility] [address] [place] [address] [facility] [address] [place] [address] * (ABNORMAL) Histoplasma Ab (06/29/2023 4:49 PM ASSISTANT PRESS OPERATOR OFFSET) [facility] Histoplasma Mycelial Negative Negative 07/02/2023 1:29 PM ASSISTANT PRESS OPERATOR OFFSET [facility] Histoplasma Yeast 1:32(A) Negative 024 1:29 PM ASSISTANT PRESS OPERATOR OFFSET SDS Comment: REPORTABLE DISEASE Complement fixation titers of >=1:32 are associated with active disease. ??Increasing titers in serially collected samples (1-2 weeks apart) are diagnostic for active disease. ??Results should be interpreted in the context of clinical presentation and other laboratory findings (e.g., fungal culture). Histoplasma Immunodiffusion Negative Negative 07/02/2023 1:29 PM ASSISTANT PRESS OPERATOR OFFSET [facility] Blood (Blood, Venous) 06/29/2023 4:49 PM ASSISTANT PRESS OPERATOR OFFSET 06/29/2023 7:52 PM ASSISTANT PRESS OPERATOR OFFSET Celestino JuarezB.S. LAB MICROBIOLOGY - BLOOD ORDERABLES Performing Organization Address City/[facility]/ZIP Co de Phone Number [facility] [address] [place] [address] [facility] [address] [place] [address] [place] [address] * Pulmonary Function Tests (06/29/2023 10:36 AM ASSISTANT PRESS OPERATOR OFFSET) FVC 2.99 L 06/29/2023 2:52 PM ASSISTANT PRESS OPERATOR OFFSET [facility] FEV1 2.54 L 06/29/2023 2:52 PM ASSISTANT PRESS OPERATOR OFFSET [facility] FEV1/FVC 85.02 % 06/29/2023 2:52 PM ASSISTANT PRESS OPERATOR OFFSET [facility] YSM75-05% 3.01 L/s 06/29/2023 2:52 PM ASSISTANT PRESS OPERATOR OFFSET [facility] PEF PRE 6.33 L/s 06/29/2023 2:52 PM ASSISTANT PRESS OPERATOR OFFSET [facility] PIF PRE 4.55 L/s 06/29/2023 2:52 PM ASSISTANT PRESS OPERATOR OFFSET [facility] FEF 50 % FIF 50 PRE 81.20 % 06/29/2023 2:52 PM ASSISTANT PRESS OPERATOR OFFSET [facility] FET PRE 6.33 sec 06/29/2023 2:52 PM ASSISTANT PRESS OPERATOR OFFSET [facility] DLCO 20.71 ml/(min*mm Hg) 06/29/2023 2:52 PM ASSISTANT PRESS OPERATOR OFFSET [facility] DLCOc 20.52 ml/(min*mm Hg) 06/29/2023 2:52 PM ASSISTANT PRESS OPERATOR OFFSET [facility] HB 13.70 g(Hb)/dL 06/29/2023 2:52 PM ASSISTANT PRESS OPERATOR OFFSET [facility] VA 3.95 L 06/29/2023 2:52 PM ASSISTANT PRESS OPERATOR OFFSET [facility] PulseRest 104.00 1/min 06/29/2023 2:52 PM ASSISTANT PRESS OPERATOR OFFSET [facility] TLC 4.16 L 06/29/2023 2:52 PM ASSISTANT PRESS OPERATOR OFFSET [facility] FRCPLETH PROVBASE 2.34 L 06/29/2023 2:52 PM ASSISTANT PRESS OPERATOR OFFSET [facility] RV 1.17 L 06/29/2023 2:52 PM ASSISTANT PRESS OPERATOR OFFSET [facility] RV % TLC PRE 28.11 % 06/29/2023 2:52 PM ASSISTANT PRESS OPERATOR OFFSET [facility] 06/29/2023 10:3 6 AM ASSISTANT PRESS OPERATOR OFFSET Impressions [facility] - 06/29/2023 2:52 PM ASSISTANT PRESS OPERATOR OFFSET Abnormal. Mild restriction. Diffusion capacity is normal. Pulse oximetry is normal at rest and exercise was not performed due to inconsistent pulse rate readings between 80-125. Narrative Procedure Note Tay Vasquez M.B.B.S. - 06/29/2023 IMPRESSION: Abnormal. Mild restriction. Diffusion capacity is normal. Pulse oximetryis normal at rest and exercise was not performed due to inconsistent pulserate readings between 80-125. Krishan Triana PFT ORDERABLES [facility] [address] * (ABNORMAL) CBC with Differential, Blood (06/29/2023 10:08 AM ASSISTANT PRESS OPERATOR OFFSET) Hemoglobin 13.7 11.6 - 15.0 g/dL 06/29/2023 11:11 AM ASSISTANT PRESS OPERATOR OFFSET DTL Hematocrit 39.2 35.5 - 44.9 % 06/29/2023 11:11 AM ASSISTANT PRESS OPERATOR OFFSET DTL Erythrocytes 4.38 3.92 - 5.13 x10(12)/L 06/29/2023 11:11 AM ASSISTANT PRESS OPERATOR OFFSET DTL MCV 89.5 78.2 - 97.9 fL 06/29/2023 11:11 AM ASSISTANT PRESS OPERATOR OFFSET DTL RBC Distrib Width 12.3 12.2 - 16.1 % 06/29/2023 11:11 AM ASSISTANT PRESS OPERATOR OFFSET DTL Platelet Count 343 157 - 371 x10(9)/L 06/29/2023 11:11 AM ASSISTANT PRESS OPERATOR OFFSET DTL Leukocytes 10.5(H) 3.4 - 9.6 x10(9)/L 06/29/2023 11:11 AM ASSISTANT PRESS OPERATOR OFFSET DTL Neutrophils 6.87(H) 1.56 - 6.45 x10(9)/L 06/29/2023 11:11 AM ASSISTANT PRESS OPERATOR OFFSET [facility] Lymphocytes 2.87 0.95 - 3.07 x10(9)/L 06/29/2023 11:11 AM ASSISTANT PRESS OPERATOR OFFSET DTL Monocytes 0.60 0.26 - 0.81 x10(9)/L 06/29/2023 11:11 AM ASSISTANT PRESS OPERATOR OFFSET DTL Eosinophils 0.11 0.03 - 0.48 x10(9)/L 06/29/2023 11:11 AM ASSISTANT PRESS OPERATOR OFFSET DTL Basophils <0.03 0.01 - 0.08 x10(9)/L 06/29/2023 11:11 AM ASSISTANT PRESS OPERATOR OFFSET DTL Blood (Blood, Venous) 06/29/2023 10:08 AM ASSISTANT PRESS OPERATOR OFFSET 06/29/2023 10:30 AM ASSISTANT PRESS OPERATOR OFFSET Krishan Triana LAB BLOOD ADD-ON [facility] [address] [place] [address], [facility] DTL [facility] [address] [place] [address] [facility] [address] [place] [address] * (ABNORMAL) Comprehensive Metabolic Panel (06/29/2023 10:08 AM ASSISTANT PRESS OPERATOR OFFSET) Pathologist [facility] Potassium, S 3.9 3.6 - 5.2 mmol/L 06/29/2023 11:03 AM ASSISTANT PRESS OPERATOR OFFSET DTL Sodium, S 141 135 - 145 mmol/L 06/29/2023 11:03 AM ASSISTANT PRESS OPERATOR OFFSET DTL Chloride, S 101 98 - 107 mmol/L 06/29/2023 11:03 AM ASSISTANT PRESS OPERATOR OFFSET DTL Bicarbonate, S 29 22 - 29 mmol/L 06/29/2023 11:03 AM ASSISTANT PRESS OPERATOR OFFSET DTL Anion Gap 11 7 - 15 06/29/2023 11:03 AM ASSISTANT PRESS OPERATOR OFFSET DTL BUN (Blood Urea Nitrogen), S 8 6 - 21 mg/dL 06/29/2023 11:03 AM ASSISTANT PRESS OPERATOR OFFSET DTL Creatinine 0.55(L) 0.59 - 1.04 mg/dL 06/29/2023 11:03 AM ASSISTANT PRESS OPERATOR OFFSET DTL Estimated GFR (eGFR) >90 >=60 mL/min/BS A 06/29/2023 11:03 AM ASSISTANT PRESS OPERATOR OFFSET DTL Comment: Estimated GFR calculated using the 2020 CKD_EPI creatinine equation. Calcium, Total, S 9.1 8.6 - 10.0 mg/dL 06/29/2023 11:03 AM ASSISTANT PRESS OPERATOR OFFSET DTL Glucose, S 135 70 - 140 mg/dL 06/29/2023 11:03 AM ASSISTANT PRESS OPERATOR OFFSET DTL Protein, Total, S 7.3 6.3 - 7.9 g/dL 06/29/2023 11:03 AM ASSISTANT PRESS OPERATOR OFFSET DTL Albumin, S 4.5 3.5 - 5.0 g/dL 06/29/2023 11:03 AM ASSISTANT PRESS OPERATOR OFFSET DTL Aspartate Aminotransferase (AST), S 26 8 - 43 U/L 06/29/2023 11:03 AM ASSISTANT PRESS OPERATOR OFFSET DTL Alkaline Phosphatase, S 92 35 - 104 U/L 06/29/2023 11:03 AM ASSISTANT PRESS OPERATOR OFFSET DTL Alanine Aminotransferase (ALT), S 33 7 - 45 U/L 06/29/2023 11:03 AM ASSISTANT PRESS OPERATOR OFFSET DTL Bilirubin, Total, S 0.5 0.0 - 1.2 mg/dL 06/29/2023 11:03 AM ASSISTANT PRESS OPERATOR OFFSET DTL Blood (Blood, Venous) 06/29/2023 10:08 AM ASSISTANT PRESS OPERATOR OFFSET 06/29/2023 10:42 AM ASSISTANT PRESS OPERATOR OFFSET Krishan Su.SJair LAB BLOOD ADD-ON [facility] [address] [place] [address], [facility] [address] [place] [address] * (ABNORMAL) CRP (C-Reactive Protein) (06/29/2023 10:04 AM ASSISTANT PRESS OPERATOR OFFSET) Pathologist [facility] C-Reactive Protein (CRP), S 56.4(H) <5.0 mg/L 07/05/2023 10:41 AM ASSISTANT PRESS OPERATOR OFFSET DTL Blood (Blood, Venous) 06/29/2023 10:04 AM ASSISTANT PRESS OPERATOR OFFSET 07/05/2023 9:54 AM ASSISTANT PRESS OPERATOR OFFSET Celestino JuarezB.SJair LAB BLOOD ADD-ON [facility] [address] [place], [place] [id number] [place] [address] [facility] [address] [place] [address] * Interpretation of Outside CT Chest (06/27/2023 5:59 AM ASSISTANT PRESS OPERATOR OFFSET) Anatomical Region Laterality Modality Chest, Thoracic RST LOS, Tho racic ARZ LOS, Thoracic FLA LOS, Other, Body N/A Computed Tomography Impressions 06/28/2023 10:03 AM ASSISTANT PRESS OPERATOR OFFSET 1. Two dominant nodules in the right [...] both lower lobes. Narrative 06/28/2023 10:03 AM ASSISTANT PRESS OPERATOR OFFSET EXAM: ??INTERPRETATION OF OUTSIDE CT CHEST , [...] verymild air trapping in the lower lungs (/). No findings suggestive ofinterstitial pulmonary fibrosis or [...] WO CON-Outside CT Body (06/18/2023 4:10 PM ASSISTANT PRESS OPERATOR OFFSET) Narrative [facility] - 06/23/2023 10:41 AM ASSISTANT PRESS OPERATOR OFFSET This order has been created and auto-finalized [...] Recently Relevant to Health Maintenance Care Teams Drilling Engineer Relationship Specialty Start Date End Date Elsewhere, Pcp PCP - General Internal Medicine 06/28/23
--- OUTSIDE RECORDS SUMMARY | 2023-09-05 07:28 | XMS_ITS ---
Author Name Unknown Organization [facility] Address [address] [place] [address] Care Team Providers Care Sheet Tester Name Role Phone Unavailable Unavailable Unavailable Surgery Details Not on file Complications Check Surgery Details section. Procedure Estimated Blood Loss Check Surgery Details section. Procedure Findings Check Surgery Details section. Procedure Specimens Taken Check Surgery Details section.
--- OUTSIDE RECORDS SUMMARY | 2023-09-05 07:29 | XMS_ITS | Encounter Summary ---
Author Name Unknown Organization [facility] Address [address] [place] [address] Care Team Providers Care Coating Manager Name Role Phone Unavailable Primary Care Provider Unavailabl e Encounter Details Date Type Department Care Team (Latest Contact Info) Description 06/26/2023 10:30 PM OPERATOR RECEPTIONIST Ancillary Procedure Department of Radiology in [place], [place] [address] [place] [address] Celestino Hudson M.B.B.S. [address] [place] [phone] Dyspnea On Exertion Social History Tobacco Use Types Packs/Day Years Used Date Smoking Tobacco: Never Smokeless Tobacco: Never Alcohol Use Standard Drinks/Week Comments No 0 (1 standard drink = 0.6 oz pur e alcohol) Humiliation, Afraid, Rape, and Kick questionnair e [...] often do you attend chur ch or scientologist services? 1 to 4 times per year [...] Answer Date Recorded PHQ-2 Score 1 12/06/2019 [facility] of Occupat ional Health - Occupational Stress [...] to strenuous exercise (like a brisk walk)? 1 day 07/01/2019 On average, how many minutes do you engage in exercise at this level? 20 min 07/01/2019 Hunger Vital Sign Answer Date Recorded Within the past 12 months, y ou worried that your food would run out before you got the money to buy more. Never true 07/01/19 20 Within the past 12 months, t he food you bought just didn't last and you didn't have money to get more. Never true 07/01/2019 PRAPARE - Transportation Answer Date Re corded In the past 12 months, has l ack of transportation kept you from medical appointments or from getting medications? No 06/17 In the past 12 months, has l ack of transportation kept you from meetings, work, or from getting things needed for daily living? No 07/01/2019 Depression Answer Date Recor ded PHQ-9 Total Score (max 27) 5 12/05 Nutrition Answer Date Recorded Nutrition: EVOO Fat Source Unknown 08/27 Nutrition: Servings of Fruits/Vegetables per Day Not on file 08/27/2022 Dental Answer Date Recorded Dental: Regular Dentist Unknown 08/28/19 Education Answer Date Recorded What is the highest level of school you have completed or the highest degree you have received? GED or equivalent Sex and Gender Information Value Date Recorded Sex Assigned at Female 06/28/2023 7:21 PM OPERATOR RECEPTIONIST Gender Identity Female 07/01/2019 7:57 PM OPERATOR RECEPTIONIST Sexual Orientation Straight 07/01/2019 7: 57 PM OPERATOR RECEPTIONIST documented as of this encounter Plan of Treatment Upcoming Encounters Date Type Department Care Team (Late st Contact Info) Description 09/06/2023 1:30 PM CDT Office Visit Department of Otorhinolaryngology in [place], [place] [address] [place] [address] Scotty Robledo, Abel.-C., M.S. [address] [place] [phone] documented as of this encounter Procedures Procedure Name Priority Date/Time Associated Diagnosis Comments INTERPRETATION OF OUTSIDE CT CHEST RAD - Routine (most inpatients and all outpatients) 06/27/2023 5:59 AM OPERATOR RECEPTIONIST Dyspnea On Exertion documented in this encounter Results * Interpretation of Outside CT Chest (06/27/2023 5:59 AM OPERATOR RECEPTIONIST) Anatomical Region Laterality Modality Chest, Thoracic RST LOS, Tho racic ARZ LOS, Thoracic FLA LOS, Other, Body N/A Computed Tomography Impressions 06/28/2023 10:03 AM OPERATOR RECEPTIONIST 1. Two dominant nodules in the right [...] both lower lobes. Narrative 06/28/2023 10:03 AM OPERATOR RECEPTIONIST EXAM: ??INTERPRETATION OF OUTSIDE CT CHEST , [...] x 12 mm subpleural nodule (3/53 or /). There are several smaller satellite nodules located between the 2 nodules. The largest of these 2 nodules appears to have slightly decreased in size measuring as much as 25 x 18 mm on 11/02/2022 and 19 x 16 mm on 07/20/2022. Imaging is obtained in slight expiration. There is a suggestion of very mild air trapping in the lower lungs (/52). No findings suggestive of interstitial pulmonary fibrosis [...] 18 x 12 mm subpleural nodule (3/53 or4/). There are several smaller satellite nodules located between the 2 nodules. The largest of these 2 nodulesappears to have slightly decreased in size measuring as much as 25 x 18 mmon 11/02/2022 and 19 x 16 mm on 07/20/2022. Imaging is obtained in slight expiration. There is a suggestion of verymild air trapping in the lower lungs (3/). No findings suggestive ofinterstitial pulmonary fibrosis or [...] slight air trappingin both lower lobes. Celestino PaulsonSJair IMHarrison CT PROCEDURES documented in this encounter Visit Diagnoses Diagnosis Dyspnea On Exertion documented in this encounter Additional Health Concerns Assessment Noted Time PHQ-9 Depression Total Score: 5 12/06/19 20 10:06 AM CDT documented as of this encounter
--- OUTSIDE RECORDS SUMMARY | 2023-09-05 07:29 | XMS_ITS | Encounter Summary ---
Author Name Unknown Organization [facility] Address [address], [place] [address] Phone Care Team Providers Care Lapping Machine Set Up Operator Name Role Phone Brinda Cordero MD Primary Care Provider [phone] Reason for Visit * Reason Onset Date Comments Sx persist, provider recommendations 06/02/2023 Encounter Details Date Type Department Care Team (Late st Contact Info) Description 06/02/2023 Telephone [facility] [address] [place] [address] Griselda Lamas RN Sx persist, provider recommendations Social History Tobacco [...] Griselda Lamas RN - 06/02/2023 12:15 PM CHENILLE MACHINE OPERATOR Spoke with patient, she was calling to [...] her back to pulmonology, with help of communications designer this was relayed to patient on her [employer] system. documented in this encounter Plan of Treatment Not on file documented as of this encounter Visit Diagnoses Not on filedocumented in this encounter Care Teams Lapping Machine Set Up Operator Relationship Specialty Start Date End Date Brinda Cordero MD [address] [place] [address] PCP - General Family Medicine 03/16/23 documented as of this encounter
--- OUTSIDE RECORDS SUMMARY | 2023-09-05 07:29 | XMS_ITS | Encounter Summary ---
Author Name Unknown Organization [facility] Address [address] [place] [address] Care Team Providers Care Hides Inspector Name Role Phone Unavailable Primary Care Provider Unavailabl e Encounter Details Date Type Department Care Team (Late st Contact Info) Description 06/26/2023 Orders Only Division of Pulmonary Medicine in [place], [place] [address] [place] [address] Celestino Hudson M.B.B.S. [address] [place] [address] Nodule Pulmonary (Primary Dx) Social History Tobacco Use Types [...] often do you attend chur ch or latter-day services? 1 to 4 times per year 07/01/2019 Do you belong to any clubs o r organizations such as tenriism groups, unions, fraternal or athletic groups, or [...] Answer Date Recorded PHQ-2 Score 1 12/06/2019 [facility] of Occupat ional Health - Occupational Stress [...] Sex Assigned at Female 06/28/2023 7:21 PM TIME CHECKER Gender Identity Female 07/01/2019 7:57 PM TIME CHECKER Sexual Orientation Straight 07/01/2019 7: 57 PM TIME CHECKER documented as of this encounter Plan of Treatment Upcoming Encounters Date Type Department Care Team (Late st Contact Info) Description 09/06/2023 1:30 PM CDT Office Visit Department of Otorhinolaryngology in [place], [place] [address] [place] [address] Scotty Robledo, P.A.-C., M.S. [address] [place] [address] documented as of this encounter Visit Diagnoses Diagnosis Nodule Pulmonary- Primary documented in this encounter Additional Health Concerns Assessment Noted Time PHQ-9 Depression Total Score: 5 12/06/19 20 10:06 AM CDT documented as of this encounter
--- OUTSIDE RECORDS SUMMARY | 2023-09-05 07:29 | XMS_ITS | Continuity of Care Document ---
Author Name Unknown Organization [facility] Address [address] [place] [address] Phone Care Team Providers Care Registered Land Surveyor Name Role Phone Evangelina Cedillo Unavailable Unavailable Advance Directives Directive Yes / No Effective Date File Name No Information Encounters Encounter Description Practice Location Reason(s) For Visit Diagnoses Date Provider Providers Copied on Encounter [facility], [address], [place], [place], [id number], [place] tel:[phone] [facility] [place] No Information Isaias Hutchinson. [facility], [address] [place] [address], [place], [place], [id number], [place]. tel:[phone] Referring Provider: Sergio Her, [address], [place], [address]. tel:[phone] Family History Family Member Type Diagnosis Age [...]
--- OUTSIDE RECORDS SUMMARY | 2023-09-05 07:29 | XMS_ITS | Encounter Summary ---
Author Name Unknown Organization [facility] Address [address] [place] [address] Care Team Providers Care Slab Puller Name Role Phone Elsewhere, Pcp Primary Care Provider Unavailabl e Encounter Details Date Type Department Care Team (Late st Contact Info) Description 07/03/2023 Orders Only Division of Pulmonary Medicine in [place], [place] [address] [place] [address] Celestino Hudson M.B.B.S. [address] [place] [address] Nodules Pulmonary Multiple (Primary Dx) Social History Tobacco Use Types Packs/Day Years Used Date Smoking Tobacco: Never Smokeless Tobacco: Never Alcohol Use Standard Drinks/Week Comments No 0 (1 standard drink = 0.6 oz pur e alcohol) [facility] Utilities Answer Date Recorded In the past 12 months has [facility] [employer], gas, oil, or water [employer] threatened to shut off services in your [...] often do you attend chur ch or episcopalian services? 1 to 4 times per year 07/01/2019 Do you belong to any clubs o r organizations such as jainism groups, unions, fraternal or athletic groups, or [...] Answer Date Recorded PHQ-2 Score 1 12/06/2019 [facility] - Occupational Stress Questionnaire Answer Date [...] Answer Date Recorded Employment status Unemployed/not in [facility] paid workforce and NOT seeking employment 06/28/2023 Housing Stability Answer Date Recorded What is your living situation today? I have a [facility] place to live 06/28/2023 Education Answer Date Recorded What is the highest level of school you have completed or the highest degree you have received? GED or equivalent Sex and Gender Information Value Date Recorded Sex Assigned at Female 06/28/2023 7:21 PM WELDER Gender Identity Female 07/01/2019 7:57 PM WELDER Sexual Orientation Straight 07/01/2019 7: 57 PM WELDER documented as of this encounter Plan of Treatment Upcoming Encounters Date Type Department Care Team (Late st Contact Info) Description 09/06/2023 1:30 PM CDT Office Visit Department of Otorhinolaryngology in [place], [place] [address] [place] [address] Scotty Robledo P.A.-C., M.S. [address] [place] [address] documented as of this encounter Visit Diagnoses Diagnosis Nodules Pulmonary Multiple- Primary documented in this encounter Additional Health Concerns Assessment Noted Time PHQ-9 Depression Total Score: 5 12/06/19 20 10:06 AM CDT documented as of this encounter Care Teams Slab Puller Relationship Specialty Start Date End Date Elsewhere, Pcp PCP - General Internal Medicine 06/28/23 documented as of this encounter
--- OUTSIDE RECORDS SUMMARY | 2023-09-05 07:29 | XMS_ITS | Encounter Summary ---
Author Name Unknown Organization [facility] Address [address] [place] [address] Care Team Providers Care Guard Sergeant Name Role Phone Unavailable Primary Care Provider Unavailabl e Encounter Details Date Type Department Care Team (Late st Contact Info) Description 06/26/2023 Orders Only Division of Pulmonary Medicine in [place], [place] [address] [place] [address] Celestino Hudson M.B.B.S. [address] [place] [address] Dyspnea On Exertion (Primary Dx) Social History Tobacco Use Types [...] often do you attend chur ch or samaritan services? 1 to 4 times per year 07/01/2019 Do you belong to any clubs o r organizations such as scientology groups, unions, fraternal or athletic groups, or [...] Sex Assigned at Female 06/28/2023 7:21 PM AMBULANCE MECHANIC Gender Identity Female 07/01/2019 7:57 PM AMBULANCE MECHANIC Sexual Orientation Straight 07/01/2019 7: 57 PM AMBULANCE MECHANIC documented as of this encounter Plan of Treatment Upcoming Encounters Date Type Department Care Team (Late st Contact Info) Description 09/06/2023 1:30 PM CDT Office Visit Department of Otorhinolaryngology in [place], [place] [address] [place] [address] Scotty Robledo, P.A.-C., M.S. [address] [place] [address] documented as of this encounter Results * Interpretation of Outside CT Chest (06/27/2023 5:59 AM AMBULANCE MECHANIC) Anatomical Region Laterality Modality Chest, Thoracic RST LOS, Tho racic ARZ LOS, Thoracic FLA LOS, Other, Body N/A Computed Tomography Impressions 06/28/2023 10:03 AM AMBULANCE MECHANIC 1. Two dominant nodules in the right [...] both lower lobes. Narrative 06/28/2023 10:03 AM AMBULANCE MECHANIC EXAM: ??INTERPRETATION OF OUTSIDE CT CHEST , [...] lower lobes. Celestino Triana IMG CT PROCEDURES documented in this encounter Visit Diagnoses Diagnosis Dyspnea On Exertion- Primary Dyspnea On Exertion documented in this encounter Additional Health Concerns Assessment Noted Time PHQ-9 Depression Total Score: 5 12/06/19 20 10:06 AM CDT documented as of this encounter
--- OUTSIDE RECORDS SUMMARY | 2023-09-05 07:29 | XMS_ITS | Encounter Summary ---
Author Name Unknown Organization [facility] Address [address] [place] [address] Care Team Providers Care Ergonomics Engineer Name Role Phone Elsewhere, Pcp Primary Care Provider Unavailabl e Reason for Visit * Reason Onset Date Comments Pre-visit Intake 06/28/2023 Encounter Details Date Type Department Care Team (Latest Contact Info) Description 06/28/2023 3:15 PM PULLING MACHINE OPERATOR Clinical Communication Virtual Review in [place], [place] [address] [place] [address] Pre-visit Intake Social History Tobacco Use Types Packs/Day Years Used Date Smoking Tobacco: Never Smokeless Tobacco: Never Alcohol Use Standard Drinks/Week Comments No 0 (1 standard drink = 0.6 oz pur e alcohol) [facility] Utilities Answer Date Recorded In the past 12 months has e [employer], gas, oil, or water [employer] threatened to shut off services in your [...] often do you attend chur ch or temple services? 1 to 4 times per year [...] Answer Date Recorded PHQ-2 Score 1 12/06/2019 [facility] Occupat ional Health - [...] your living situation today? I have a [facility] place to live 06/28/2023 Education Answer Date Recorded What is the highest level of school you have completed or the highest degree you have received? GED or equivalent Sex and Gender Information Value Date Recorded Sex Assigned at Female 06/28/2023 7:21 PM PULLING MACHINE OPERATOR Gender Identity Female 07/01/2019 7:57 PM PULLING MACHINE OPERATOR Sexual Orientation Straight 07/01/2019 7: 57 PM PULLING MACHINE OPERATOR documented as of this encounter Plan of Treatment Upcoming Encounters Date Type Department Care Team (Late st Contact Info) Description 09/06/2023 1:30 PM CDT Office Visit Department of Otorhinolaryngology in [place], [place] [address] [place] [address] Scotty Robledo, P.Hima.-C., M.S. [address] [place] [address] documented as of this encounter Visit Diagnoses Not on filedocumented in this encounter Additional Health Concerns Assessment Noted Time PHQ-9 Depression Total Score: 5 12/06/19 20 10:06 AM CDT documented as of this encounter Care Teams Ergonomics Engineer Relationship Specialty Start Date End Date Elsewhere, Pcp PCP - General Internal Medicine 06/28/23 documented as of this encounter
--- OUTSIDE RECORDS SUMMARY | 2023-09-05 07:29 | XMS_ITS | Clinical Summary ---
Author Name Unknown Organization [facility] Address [address] [place] [address] Phone Care Team Providers Care Mascara Molder Name Role Phone Brinda Cordero MD Primary Care Provider Allergies Active Allergy Reactions Criticality Noted Date Comments Latex Itching 01/04/2008 Pt reports a little tightness with breathing and itching Penicillins Hives 01/04/2008 Sulfamethoxazole-Trimethopr im 06/04/2008 Medications No known medications Active Problems Problem Noted Date Diagnosed Date [...] allergy 07/04/2012 Sensorineural hearing loss, bilateral 11/21/2009 Immunizations Name Administration Dates Next Due DTP [...] Comments Blood Pressure 124/84 04/27/2023 11:01 AM SHANK RANDER Pulse 88 04/27/2023 11:01 AM SHANK RANDER Temperature 36.4 ??C (97.6 ??F) 04/27/2023 11:[address] Respiratory Rate 16 03/16/2023 9:33 AM CDT Oxygen Saturation 98% 03/16/2023 9:33 AM CDT Inhaled Oxygen Concentration - - Weight 77.3 kg (170 lb 6.4 oz) 04/27/2023 11:01 AM SHANK RANDER Height 161.3 cm (5' 3.5) 04/27/2023 11:01 AM CS T Body Mass Index 29.71 04/27/2023 11:01 AM SHANK RANDER Plan of Treatment Health Maintenance Due Date Last Done Comments Pneumococcal PPSV23 Highest Risk Adult (1 of 3 - PCV13) 2007 COVID-19 Vaccine (4 - 2022-2 4 season) 2023 04/07/2022, 02/26/2021, 02/05/2021 Influenza Vaccine (Season Ended) 2024 04/07/2022, 08/22/2021, 03/17/2019, Additional history exists Care Teams Mascara Molder Relationship Specialty Start Date End Date Brinda Cordero MD [address] [place] [id number] PCP - General Family Medicine 03/16/23
--- OUTSIDE RECORDS SUMMARY | 2023-09-05 07:29 | XMS_ITS | Encounter Summary ---
Author Name Unknown Organization [facility] Address [address] [place] [address] Care Team Providers Care Picker And Sorter Load And Unload Name Role Phone Elsewhere, Pcp Primary Care Provider Unavailabl e Reason for Referral * MRI/CAT/PET Scan (Routine) - Closed Specialty Diagnoses / Procedures Referred By Peri gaytan Referred To Contact Radiology Diagnoses Nodules Pulmonary Multiple Procedures CT Sinuses without IV Contrast Celestino Hudson M.B.B.S. [address] [place] [phone] [facility] Referral ID Status Reason Start Date Expiration Date Visits Re quested Visits Authorized [id number] Closed 06/29/2023 06/28/2024 1 1 TOR OF PHOTOGRAPHY AND PRINTS Reason for Visit * MRI/CAT/PET Scan (Routine) - Closed Specialty Diagnoses / Procedures Referred By Contac lukas Referred To Contact Radiology Diagnoses Nodules Pulmonary Multiple Procedures CT Sinuses without IV Contrast Celestino Hudson M.B.B.S. [address] [place] [address] [facility] Referral ID Status Reason Start Date Expiration Date Visits Re quested Visits Authorized [id number] Closed 06/29/2023 06/28/2024 1 1 Encounter Details Date Type Department Care Team (Latest Contact Info) Description 07/02/2023 12:42 PM CURATOR OF PHOTOGRAPHY AND PRINTS - 07/02/2023 11:59 PM CURATOR OF PHOTOGRAPHY AND PRINTS Hospital Encounter Department of Radiology, [facility], in [place], [place] [address] [place] [phone] Celestino Hudson M.B.B.S. [address] [place] [address] Nodules Pulmonary Multiple Discharge Disposition: Home or Self Care Social History Tobacco Use Types Packs/Day Years Used Date Smoking Tobacco: Never Smokeless Tobacco: Never Alcohol Use Standard Drinks/Week Comments No 0 (1 standard drink = 0.6 oz pur e alcohol) [facility] Utilities Answer Date Recorded In the past 12 months has th e [employer], gas, oil, or water [employer] threatened to shut off services in your [...] often do you attend chur ch or faith services? 1 to 4 times per year 07/01/2019 Do you belong to any clubs o r organizations such as hindu groups, unions, fraternal or athletic groups, or [...] Answer Date Recorded PHQ-2 Score 1 12/06/2019 [facility] of Occupat ional Health - Occupational [...] your living situation today? I have a [facility] place to live 06/28/2023 Education Answer Date Recorded What is the highest level of school you have completed or the highest degree you have received? GED or equivalent Sex and Gender Information Value Date Recorded Sex Assigned at Female 06/28/2023 7:21 PM CURATOR OF PHOTOGRAPHY AND PRINTS Gender Identity Female 07/01/2019 7:57 PM CURATOR OF PHOTOGRAPHY AND PRINTS Sexual Orientation Straight 07/01/2019 7: 57 PM CURATOR OF PHOTOGRAPHY AND PRINTS documented as of this encounter Medications at Time of Discharge Medication Sig Dispensed Refills Start Date End Date acetaminophen (TYLENOL) 500 mg tablet Take 1,000 mg by mouth as needed. 01/26/2020 alcohol swabs pads, medicated Use as needed for diabetes control 1500 each 3 12/14/2019 blood glucose ctl high,nml,low solution Glucose control [...] 600 mg by mouth as needed. 01/26/2020 khtypuo-Ge-ezjf-FA (VINATE ONE) 60 mg iron-1 mg per tablet Take 1 tablet by mouth daily. sennosides (SENOKOT) 8.6 mg tablet Take 8.6-17.2 mg by mouth. 01/26/2020 documented as of this encounter Plan of Treatment Upcoming Encounters Date Type Department Care Team (Late st Contact Info) Description 09/06/2023 1:30 PM CDT Office Visit Department of Otorhinolaryngology in [place], [place] [address] [place] [address] Scotty Robledo, P.A.-C., M.S. [address] [place] [address] documented as of this encounter Procedures Procedure Name Priority Date/Time Associated Diagnosis Comments CT SINUSES WITHOUT IV CONTRAST RAD - Routine (most inpatients and all outpatients) 07/02/2023 1:20 PM CURATOR OF PHOTOGRAPHY AND PRINTS Nodules Pulmonary Multiple documented in this encounter Results * CT Sinuses without IV Contrast (07/02/2023 1:20 PM CURATOR OF PHOTOGRAPHY AND PRINTS) Anatomical Region Laterality Modality Head, Neuroradiology RST LOS , Neuroradiology ARZ LOS, Neuroradiology FLA LOS N/A Computed Tomography, Compute d Tomography Impressions 07/02/2023 2:36 PM CURATOR OF PHOTOGRAPHY AND PRINTS Acute paranasal sinus inflammation, most prominently involving the bilateral maxillary sinuses and sinus outlets as described. Narrative 07/02/2023 2:36 PM CURATOR OF PHOTOGRAPHY AND PRINTS EXAM: CT SINUSES WITHOUT IV CONTRAST COMPARISON: [...] sinuses and sinus outlets as described. Celestino Triana IMG CT PROCEDURES documented in this encounter Visit Diagnoses Diagnosis Nodules Pulmonary Multiple documented in this encounter Additional Health Concerns Assessment Noted Time PHQ-9 Depression Total Score: 5 12/06/19 20 10:06 AM CDT documented as of this encounter Care Teams Picker And Sorter Load And Unload Relationship Specialty Start Date End Date Elsewhere, Pcp PCP - General Internal Medicine 06/28/23 documented as of this encounter
--- OUTSIDE RECORDS SUMMARY | 2023-09-05 07:29 | XMS_ITS | Encounter Summary ---
Author Name Unknown Organization [facility] Address [address] [place] [address] Care Team Providers Care Certified Surgical First Assistant Name Role Phone Elsewhere, Pcp Primary Care Provider Unavailabl e Encounter Details Date Type Department Care Team (Late st Contact Info) Description 07/04/2023 Orders Only Division of Pulmonary Medicine in [place], [place] [address] [place] [address] Celestino Hudson M.B.B.S. [address] [place] [address] Nodules Pulmonary Multiple (Primary Dx) Social History Tobacco Use Types Packs/Day Years Used Date Smoking Tobacco: Never Smokeless Tobacco: Never Alcohol Use Standard Drinks/Week Comments No 0 (1 standard drink = 0.6 oz pur e alcohol) [facility] Utilities Answer Date Recorded In the past 12 months has [facility] [employer], gas, oil, or water [employer] threatened to shut off services in your [...] often do you attend chur ch or muslim services? 1 to 4 times per year 07/01/2019 Do you belong to any clubs o r organizations such as pentecostal groups, unions, fraternal or athletic groups, or [...] Answer Date Recorded PHQ-2 Score 1 12/06/2019 [facility] - Occupational Stress Questionnaire Answer Date [...] Answer Date Recorded Employment status Unemployed/not in [facility] paid workforce and NOT seeking employment 06/28/2023 Housing Stability Answer Date Recorded What is your living situation today? I have a [facility] place to live 06/28/2023 Education Answer Date Recorded What is the highest level of school you have completed or the highest degree you have received? GED or equivalent Sex and Gender Information Value Date Recorded Sex Assigned at Female 06/28/2023 7:21 PM CIGARETTE MAKING MACHINE OPERATOR Gender Identity Female 07/01/2019 7:57 PM CIGARETTE MAKING MACHINE OPERATOR Sexual Orientation Straight 07/01/2019 7: 57 PM CIGARETTE MAKING MACHINE OPERATOR documented as of this encounter Plan of Treatment Upcoming Encounters Date Type Department Care Team (Late st Contact Info) Description 09/06/2023 1:30 PM CDT Office Visit Department of Otorhinolaryngology in [place], [place] [address] [place] [address] Scotty Robledo P.A.-C., M.S. [address] [place] [address] documented as of this encounter Visit Diagnoses Diagnosis Nodules Pulmonary Multiple- Primary documented in this encounter Additional Health Concerns Assessment Noted Time PHQ-9 Depression Total Score: 5 12/06/19 20 10:06 AM CDT documented as of this encounter Care Teams Certified Surgical First Assistant Relationship Specialty Start Date End Date Elsewhere, Pcp PCP - General Internal Medicine 06/28/23 documented as of this encounter
--- OUTSIDE RECORDS SUMMARY | 2023-09-05 07:29 | XMS_ITS | Encounter Summary ---
Author Name Unknown Organization [facility] Address [address] [place] [address] Care Team Providers Care Ssis Etl Developer Name Role Phone Elsewhere, Pcp Primary Care Provider Unavailabl e Encounter Details Date Type Department Care Team (Late st Contact Info) Description 07/04/2023 Orders Only Division of Pulmonary Medicine in [place], [place] [address] [place] [address] Celestino Hudson M.B.B.S. [address] [place] [address] Nodules Pulmonary Multiple (Primary Dx) Social History Tobacco Use Types Packs/Day Years Used Date Smoking Tobacco: Never Smokeless Tobacco: Never Alcohol Use Standard Drinks/Week Comments No 0 (1 standard drink = 0.6 oz pur e alcohol) [facility] Utilities Answer Date Recorded In the past 12 months has [facility] [employer], gas, oil, or water [employer] threatened to shut off services in your [...] often do you attend chur ch or restorationist services? 1 to 4 times per year 07/01/2019 Do you belong to any clubs o r organizations such as mormonism groups, unions, fraternal or athletic groups, or [...] Answer Date Recorded PHQ-2 Score 1 12/06/2019 [facility] - Occupational Stress Questionnaire Answer Date [...] Answer Date Recorded Employment status Unemployed/not in [facility] paid workforce and NOT seeking employment 06/28/2023 Housing Stability Answer Date Recorded What is your living situation today? I have a [facility] place to live 06/28/2023 Education Answer Date Recorded What is the highest level of school you have completed or the highest degree you have received? GED or equivalent Sex and Gender Information Value Date Recorded Sex Assigned at Female 06/28/2023 7:21 PM SAND TESTER Gender Identity Female 07/01/2019 7:57 PM SAND TESTER Sexual Orientation Straight 07/01/2019 7: 57 PM SAND TESTER documented as of this encounter Plan of Treatment Upcoming Encounters Date Type Department Care Team (Late st Contact Info) Description 09/06/2023 1:30 PM CDT Office Visit Department of Otorhinolaryngology in [place], [place] [address] [place] [address] Scotty Robledo P.A.-C., M.S. [address] [place] [address] documented as of this encounter Visit Diagnoses Diagnosis Nodules Pulmonary Multiple- Primary documented in this encounter Additional Health Concerns Assessment Noted Time PHQ-9 Depression Total Score: 5 12/06/19 20 10:06 AM CDT documented as of this encounter Care Teams Ssis Etl Developer Relationship Specialty Start Date End Date Elsewhere, Pcp PCP - General Internal Medicine 06/28/23 documented as of this encounter
--- OUTSIDE RECORDS SUMMARY | 2023-09-05 07:29 | XMS_ITS | Encounter Summary ---
Author Name Unknown Organization [facility] Address [address] [place] [id number] Care Team Providers Care Family Consultant Name Role Phone Elsewhere, Pcp Primary Care Provider Unavailabl e Reason for Referral * Outpatient (Routine) - Closed Specialty Diagnoses / Procedures Referred By Contac t Referred To Contact Diagnoses Nodules Pulmonary Multiple Procedures ECG 12 Lead Celestino Hudson M.B.B.S. [address] [place] [address] [facility] Referral ID Status Reason Start Date Expiration Date Visits Re quested Visits Authorized [id number] Closed 06/29/2023 06/28/2024 1 1 REPAIRMAN * MRI/CAT/PET Scan (Routine) - Closed Specialty Diagnoses / Procedures Referred By Contac t Referred To Contact Radiology Diagnoses Nodules Pulmonary Multiple Procedures CT Sinuses without IV Contrast Celestino Hudson, M.B.B.S. [address] [place] [address] [facility] Referral ID Status Reason Start Date Expiration Date Visits Re quested Visits Authorized [id number] Closed 06/29/2023 06/28/2024 1 1 REPAIRMAN Reason for Visit * Appointment Request (Routine) - Closed Specialty Diagnoses / Procedures Referred By Contac t Referred To Contact Pulmonary Medicine Diagnoses Mass Lung Shortness Of Breath Referral ID Status Reason Start Date Expiration Date Visits Re quested Visits Authorized [id number] Closed 2023 06/20/2024 1 1 Encounter Details Date Type Department Care Team (Latest Contact Info) Description 06/29/2023 3:00 PM DOOR REPAIRMAN Comprehensive Visit Division of Pulmonary Medicine in [place], [place] [address] [place] [address] Krishan Jeffrey M.B.BJairS. [address] [place] [phone] Nodules Pulmonary Multiple (Primary Dx) Social History Tobacco Use Types Packs/Day Years Used Date Smoking Tobacco: Never Smokeless Tobacco: Never Alcohol Use Standard Drinks/Week Comments No 0 (1 standard drink = 0.6 oz pur e alcohol) [facility] Utilities Answer Date Recorded In the past 12 months has e electric, gas, oil, or water [employer] threatened to shut off services in your [...] often do you attend chur ch or buddhism services? 1 to 4 times per year 07/01/2019 Do you belong to any clubs o r organizations such as zoroastrianism groups, unions, fraternal or athletic groups, or [...] Answer Date Recorded PHQ-2 Score 1 12/06/2019 [facility] - Occupational [...] Answer Date Recorded Employment status Unemployed/not in [employer] paid workforce and NOT seeking employment 06/28/2023 Housing Stability Answer Date Recorded What is your living situation today? I have a [facility] place to live 06/28/2023 Education Answer Date Recorded What is the highest level of school you have completed or the highest degree you have received? GED or equivalent Sex and Gender Information Value Date Recorded Sex Assigned at Female 06/28/2023 7:21 PM DOOR REPAIRMAN Gender Identity Female 07/01/2019 7:57 PM DOOR REPAIRMAN Sexual Orientation Straight 07/01/2019 7: 57 PM DOOR REPAIRMAN documented as of this encounter Last Filed Vital Signs Vital Sign Reading Time Taken Comments Blood Pressure 151/107 06/29/2023 2:55 PM DOOR REPAIRMAN Pulse 113 06/29/2023 2:55 PM DOOR REPAIRMAN Temperature 36.6 ??C (97.8 ??F) 06/29/2023 2:55 PM CS T Respiratory Rate - - Oxygen Saturation 96% 06/29/2023 2:55 PM DOOR REPAIRMAN Inhaled Oxygen Concentration - - Weight 75.5 kg (166 lb 7.2 oz) 06/29/2023 2:55 P M DOOR REPAIRMAN Height 163.9 cm (5' 4.53) 06/29/2023 2:55 PM CS T Body Mass Index 28.11 06/29/2023 2:55 PM DOOR REPAIRMAN documented in this encounter H&P Notes * Krishan Jeffrey M.B.BJairS. - 06/29/2023 3:00 PM CST ASSESSMENT / PLAN Please see note from Dr. Hudson I have seen and examined the patient. I concur with the findings. This is a 33-year-old never-smoker who has a history of asthma as a child but lately has trouble with sinusitis, especially from 2021 or 2022, and she also was found to have some pulmonary nodules for which she underwent a CT-guided biopsy, and it showed necrotizing granulomatous inflammation. On multiple occasions, she does have RBCs in the urine, but patient herself says that her urine is dark,but she does not complain of blood in the urine. There is no history of weight loss, but she does give history of night sweats, but she is also on progesterone, I think IUD. She is breast-feeding, and she is not having her period. There is no history of joint symptoms or rash. There is no history of sick contact, especially TB. She has a history of shortness of breath with some chest pain. The plan is to do CT sinuses, ANCA, urinalysis with microscopy, ESR, C-reactive protein, and review the outside slide and to repeat testing for histoplasmosis as well as TB. On pulmonary function tests, shehas mild decrease in total lung capacity, but DLCO is normal, and CT scan does show some nodules but she also had satellite nodules and that raises more suspicion for fungal disease. We will get backto the patient after the test is complete. Of note, the patient is deaf and mute, so if we will have to contact her either we need to send her a portal message or we can also do a video visit. Mino Soliman. CT CT Job ID: [id number] REPAIRMAN documented in this encounter Consult Notes * Celestino Hudson M.B.B.S. - 06/29/2023 3:00 PM CST Images from the original note were not included. SUBJECTIVE CHIEF COMPLAINT/REASON FOR VISIT/REASON FOR CONSULT At your request, I saw Liv Evans in the office today for pulmonary nodules. Supervising physician, Dr. Jeffrey was present in person for the clinic encounter. HISTORY OF PRESENT ILLNESS History is taken from interview with patient, review of [facility], and/or outside records(available in [facility] Everywhere and/or in patient's possession). Patient is deaf and mute. Him Director Ms Gianna Alfred was present for the entire visit for communication. She is a 33 y.o. female never smoker. History asthma as a child. She was on inhalers then. 2019 She had a couple of episodes of pneumonia 2021 COVID previously with symptoms without any meds some of the symptoms have persisted slight degree of cough She was in 2019 and 2021 2022 worsening of symptoms eventually led up to imaging that showed definite inflammatory process in thelung. 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 She did have full fungal cultures that are negative. A) LUNG, RIGHT, MIDDLE LOBE, LATERAL, NODULE, FNA AND TRANS BRONCHIAL BIOPSY: 1. Negative for malignancy 2. Necrotizing granulomatous inflammation 3. GMS stain positive for rare small yeast forms, favor Histoplasma 4. AFB and VANESA stains negative for organisms B) LUNG, RIGHT MIDDLE LOBE, MEDIAL, NODULE, FNA AND TRANS BRONCHIAL BIOPSY: 1. Negative for malignancy 2. Necrotizing granulomatous inflammation 3. GMS stain positive for few small yeast forms, favor Histoplasma 4. AFB and VANESA stains negative for organisms Per outside notes, BAL cultures negative Slight cough, no longer having chest discomfort. No other clear focal or localizing symptoms suggestive of a generalized illness no recent travel or exposures no one else has been around its been ill. No notable history of any major family inflammatory type illnesses Right hemithorax discomfort/possible musculoskeletal pain since 2 years Inhalers and humidifier use has not helped D/D: infectious--fungal, TB, NTM Non-infectious: RA, GPA, sarcoidosis Took itraconazole for a month and stopped it after a month She has a lot of sinus issues: more of pressure than secretions Has some reflux issues but not currently major issue No autoimmune conditions No significant family history No recent travels REVIEW OF SYSTEMS A full review of systems was obtained. Pertinent positives and negatives are noted in the HPI; all other review of systems were negative. PAST MEDICAL AND SURGICAL HISTORY Past Medical History: Diagnosis Date Asthma (HCC) Bartholin's Gland Cyst 01/15/2017 Deaf Nonspeaking Not Elsewhere Classified 05/18/2013 Depressive Disorder Fatty Liver Gastroesophageal Reflux Disease Headache Unspecified 07/14/2016 High Risk History Labor 06/12/2013 delivered at 34 weeks after pprom at 30 weeks. 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 Family history of interstitial lung disease: No Personal or family history of premature greying, liver disease or blood dyscrasias: No OBJECTIVE PHYSICAL EXAM Vitals: Blood Pressure: (!) 151/107 (06/29/2023 2:55 PM) Temperature: 36.6 ??C (06/29/2023 2:55 PM) Temp Source: Temporal (06/29/2023 2:55 PM) Pulse Rate: (!) 113 (06/29/2023 2:55 PM) BMI (Calculated): 28.1 kg/m?? (06/29/2023 2:55 PM) SpO2: 96 % (06/29/2023 2:55 PM) Height: 163.9 cm (06/29/2023 2:55 PM) Weight: 75.5 kg (06/29/2023 2:55 PM) On my physical examination today, Ms. Evans appears in no respiratory distress. Clubbing: No LL edema: No JVD: No Lungs are clear on auscultation. Fully alert and interactive. Normal affect. DIAGNOSTICS I have reviewed the patient's current laboratory, imaging, and other diagnostic studies. Clinicallysignificant findings are as follows: CT CHEST date: 1. Two dominant nodules in the right [...] slight air trapping in both lower lobes. PULMONARY FUNCTION TEST RESULTS 11/2022 ASSESSMENT / PLAN Differential Diagnosis/ Impression ?? 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 Necrotizing granulomatous inflammation ? Alternate diagnosis--Rule out vasculitis , other autoimmune conditions, fungal infection ?? Chronic sinus symptoms, persistent cough and SOB ?? Childhood asthma ?? Abnormal urinalysis ?? Non specific arthralgia, rash and fevers Comment Ms evans, never smoker, presents with has childhood history of asthma with sinus symptoms with recurrent pneumonias in 2019, COVID-19 infection in 2021 and most recently was diagnosed with right middle lobe pulmonary nodules. The nodules were biopsied with necrotising granulomatous histopathology,non specific yeast without any response to itranconazole for presumed histoplasmosis. Given clinical constellation of Non specific arthralgia, rash and fevers,childhood asthma and childhood symptoms, recurrent pneumonias, lung nodules, not responsive to antifungal therapy raises suspicion for alternate granulomatous process, especially ANCA vasculitis and or an underlying autoimmunecondition. The next step would be to pursue additional testing for underlying etiology with CT sinuses, autoimmune workup including ANCA, urinalysis, dipstick, Fungal and TB serologies, EKG Given that, I recommend: ?? CT sinuses ?? Autoimmune workup including ANCA ?? Urinalysis, dipstick ?? Fungal serologies ?? EKG (given irregular pulse and non specific chest discomfort) . Review of outside hospital biopsy slides PATIENT EDUCATION The patient is ready to learn, no apparent learning barriers were identified; learning preferences include listening. Reviewed diagnostics and plan in detail and understanding was verbalized by the patient. I did my best to answer all questions prior to the end of the visit today and provided the patient with my card. Ann VeraB.S. Interstitial Lung Disease & Vasculitis Fellow REPAIRMAN documented in this encounter Plan of Treatment Upcoming Encounters Date Type Department Care Team (Late st Contact Info) Description 09/06/2023 1:30 PM CDT Office Visit Department of Otorhinolaryngology in [place], [place] [address] [place] [address] Scotty Robledo, Jes.Hima.-C., M.S. [address] [place] [address] Scheduled Orders Name Type Priority Associated Diagnoses Orde r Schedule Dipstick, POCT, Urine (nursing, interfaced) Point of Care Testing-Docked Device Routine Nodules Pulmonary Multiple Expected: 06/29/2023 (Approximate), Expires: 09/26/2024 documented as of this encounter Results * CT Sinuses without IV Contrast (07/02/2023 1:20 PM DOOR REPAIRMAN) Anatomical Region Laterality Modality Head, Neuroradiology RST LOS , Neuroradiology ARZ LOS, Neuroradiology FLA LOS N/A Computed Tomography, Compute d Tomography Impressions 07/02/2023 2:36 PM DOOR REPAIRMAN Acute paranasal sinus inflammation, most prominently involving the bilateral maxillary sinuses and sinus outlets as described. Narrative 07/02/2023 2:36 PM DOOR REPAIRMAN EXAM: CT SINUSES WITHOUT IV CONTRAST COMPARISON: [...] sinuses and sinus outlets as described. Celestino JuarezB.S. IMG CT PROCEDURES * ECG 12 Lead (07/02/2023 12:30 PM DOOR REPAIRMAN) Ventricular Rate ECG/Min 88 BPM MUSE NV Interval 148 ms MUSE QRSD Interval 88 ms MUSE QT Interval 374 ms MUSE QTC Interval 452 ms MUSE P [place] 32 degrees MUSE R [place] 1 degrees MUSE T Wave [place] 22 degrees MUSE 07/02/2023 12:3 0 PM DOOR REPAIRMAN 07/02/2023 12:50 PM DOOR REPAIRMAN Impressions MUSE - 07/02/2023 12:50 PM DOOR REPAIRMAN Normal sinus rhythm Moderate voltage criteria for LVH, may be normal variant No previous ECGs available Reviewed by MARY Hightower Narrative Procedure Note Giovanni Suero Jr., M.D. - 07/02/2023 IMPRESSION: Normal sinus rhythm Moderate voltage criteria for LVH, may be normal variant No previous ECGs available Reviewed by MARY Hightower Celestino JuarezB.S. ECG ORDERABLES MUSE NA * (ABNORMAL) Urinalysis, with Microscopic: Urine, Midstream (06/29/2023 4:55 PM DOOR REPAIRMAN) Source Midstream 06/29/2023 5:06 PM DOOR REPAIRMAN DTL Color, U Yellow 06/29/2023 5:06 PM DOOR REPAIRMAN DTL Clarity, U Cloudy(A) 06/29/2023 5:06 PM DOOR REPAIRMAN DTL Protein, U 20 <26 mg/dL 06/29/2023 5:57 PM DOOR REPAIRMAN DTL Protein/Osmola lity 0.29 <0.42 ratio 06/29/2023 8:11 PM DOOR REPAIRMAN DTL Predicted 24 HR Protein, U 218 <229 mg/24 h 06/29/2023 8:11 PM DOOR REPAIRMAN DTL Predicted Range 54-882 mg/24 h 06/29/2023 8:11 PM DOOR REPAIRMAN DTL Urine (Urine, Midstream) 06/29/2023 4:55 PM DOOR REPAIRMAN 06/29/2023 5:06 PM DOOR REPAIRMAN Celestino JuarezB.S. LAB URINE ORDERAB LES Performing Organization Address [facility] Co de Phone Number [facility] [address] [place] [address], [facility] [address] [place] [address] * Histoplasma Antigen, Quantitative EIA, Urine (06/29/2023 4:55 PM DOOR REPAIRMAN) Pathologist [facility] Histoplasma Ag Result Not Detected Not Detected 06/30/2023 2:49 PM DOOR REPAIRMAN [facility] Comment: No Histoplasma antigen detected. ?? False negative results may occur. ??Repeat testing on a new specimen should be considered if clinically indicated. ?? Histoplasma Ag Value Not Detected ng/mL 06/30/2023 2:49 PM DOOR REPAIRMAN [facility] Comment: ----ADDITIONAL INFORMATION---- This test has been modified from the power press supervisor's instructions. Its performance characteristics were determined by [facility] in a manner consistent with CLIA requirements. This test has not been cleared or approved by the U.S. Food and Drug Administration. Urine (Urine, Midstream) 06/29/2023 4:55 PM DOOR REPAIRMAN 06/29/2023 7:54 PM DOOR REPAIRMAN Celestino JuarezB.S. LAB URINE ORDERAB LES Performing Organization Address City/[facility]/ZIP Co de Phone Number [facility] [address] [place] [address] [facility] [address] [place] [address] * (ABNORMAL) Histoplasma Ab (06/29/2023 4:49 PM DOOR REPAIRMAN) Pathologist [facility] Histoplasma Mycelial Negative Negative 07/02/2023 1:29 PM DOOR REPAIRMAN [facility] Histoplasma Yeast 1:32(A) Negative 024 1:29 PM DOOR REPAIRMAN [facility] Comment: REPORTABLE DISEASE Complement fixation titers of >=1:32 are associated with active disease. ??Increasing titers in serially collected samples (1-2 weeks apart) are diagnostic for active disease. ??Results should be interpreted in the context of clinical presentation and other laboratory findings (e.g., fungal culture). Histoplasma Immunodiffusion Negative Negative 07/02/2023 1:29 PM DOOR REPAIRMAN [facility] Blood (Blood, Venous) 06/29/2023 4:49 PM DOOR REPAIRMAN 06/29/2023 7:52 PM DOOR REPAIRMAN Celestino Triana LAB MICROBIOLOGY - BLOOD ORDERABLES [facility] [address] [place] [address] [facility] [address] [place] [address] [place] [address] * QuantiFERON-Tb Gold Plus, Blood (06/29/2023 4:49 PM DOOR REPAIRMAN) [facility] [address] QuantiFERON-TB Gold Plus Result Negative Negative 06/30/2023 1:23 PM DOOR REPAIRMAN [facility] Comment: No interferon-gamma response to M. tuberculosis [...] Nil Result 0.02 IU/mL 06/30/2023 1:23 PM DOOR REPAIRMAN [facility] TB2 Ag minus Nil Result 0.01 IU/mL 06/30/2023 1:23 PM DOOR REPAIRMAN [facility] Mitogen minus Nil Result 9.98 IU/mL 06/30/2023 1:23 PM DOOR REPAIRMAN [facility] Nil Result 0.02 IU/mL 06/30/2023 1:23 PM DOOR REPAIRMAN [facility] Blood (Blood, Venous) 06/29/2023 4:49 PM DOOR REPAIRMAN 06/29/2023 7:54 PM DOOR REPAIRMAN Narrative [facility] - 06/30/2023 1:23 PM DOOR REPAIRMAN Specimen Information: Specimen ID: [id number] Specimen Type: Blood Specimen Collection Start Date: 06/29/2023 ??4:49 PM Specimen Received Date: 06/29/2023 ??7:54 PM Specimen ID: [id number] Specimen Type: Blood Specimen Collection Start Date: 06/29/2023 ??4:49 PM Specimen Received Date: 06/29/2023 ??7:54 PM Specimen ID: [id number] Specimen Type: Blood Specimen Collection Start Date: 06/29/2023 ??4:49 PM Specimen Received Date: 06/29/2023 ??7:54 PM Specimen ID: [id number] Specimen Type: Blood Specimen Collection Start Date: 06/29/2023 ??4:49 PM Specimen Received Date: 06/29/2023 ??7:54 PM Celestino PaulsonSJair LAB MICROBIOLOGY - BLOOD ORDERABLES [facility] [address] [place] [address] [facility] [address] [place] [address] * MyoMarker 3 Plus Profile - Sent Out Lab (06/29/2023 4:49 PM DOOR REPAIRMAN) Anti-Hanny-1 Ab <20 <20 Units 07/17/2023 5:08 PM DOOR REPAIRMAN [facility] Anti-PL-7 Ab Negative Negative 07/17/2023 5:08 PM DOOR REPAIRMAN [facility] Comment: This test was developed and its performance characteristics determined by [facility]. It has not been cleared or approved by the Food and Drug Administration. Anti-PL-12 Ab Negative Negative 07/17/2023 5:08 PM DOOR REPAIRMAN [facility] Comment: This test was developed and its performance characteristics determined by [facility]. It has not been cleared or approved by the Food and Drug Administration. Anti-EJ Ab Negative Negative 07/17/2023 5:08 PM DOOR REPAIRMAN [facility] Comment: This test was developed and its performance characteristics determined by [facility]. It has not been cleared or approved by the Food and Drug Administration. Anti-OJ Ab Negative Negative 07/17/2023 5:08 PM DOOR REPAIRMAN [facility] Comment: This test was developed and its performance characteristics determined by [facility]. It has not been cleared or approved by the Food and Drug Administration. Anti-SRP Ab Negative Negative 07/17/2023 5:08 PM DOOR REPAIRMAN [facility] Comment: This test was developed and its performance characteristics determined by [facility]. It has not been cleared or approved by the Food and Drug Administration. Fple-Oi-8-Ab Negative Negative 07/17/2023 5:08 PM DOOR REPAIRMAN [facility] Comment: This test was developed and its performance characteristics determined by [facility]. It has not been cleared or approved by the Food and Drug Administration. Hpsz-[id number] Ab <20 <20 Units 2023 5:08 PM DOOR REPAIRMAN [facility] Comment: This test was developed and its performance characteristics determined by [facility]. It has not been cleared or approved by the Food and Drug Administration. Anti-MDA-5 Ab (CADM-140) <20 <20 Units 07/17/2023 5:08 PM DOOR REPAIRMAN [facility] Comment: This test was developed and its performance characteristics determined by [facility]. It has not been cleared or approved by the Food and Drug Administration. Anti-NXP-2 (P140) Ab <20 <20 Units 07/17/2023 5:08 PM DOOR REPAIRMAN [facility] Comment: This test was developed and its performance characteristics determined by [facility]. It has not been cleared or approved by the Food and Drug Administration. Anti-SAE1 Ab, IgG <20 <20 Units 024 5:08 PM DOOR REPAIRMAN [facility] Comment: This test was developed and its performance characteristics determined by [facility]. It has not been cleared or approved by the Food and Drug Administration. Anti-PM/Scl-100 Ab <20 <20 Units 2023 5:08 PM DOOR REPAIRMAN [facility] Comment: This test was developed and its performance characteristics determined by [facility]. It has not been cleared or approved by the Food and Drug Administration. Anti-Ku Ab Negative Negative 07/17/2023 5:08 PM DOOR REPAIRMAN [facility] Comment: This test was developed and its performance characteristics determined by [facility]. It has not been cleared or approved by the Food and Drug Administration. Anti-SS-A 52kD Ab, IgG <20 <20 Units 07/17/2023 5:08 PM DOOR REPAIRMAN [facility] Comment: This test was developed and its performance characteristics determined by [facility]. It has not been cleared or approved by the Food and Drug Administration. Anti-U1 MONOGRAM MAKER Ab <20 <20 Units 07/17/2023 5:08 PM DOOR REPAIRMAN [facility] Anti-U2 MONOGRAM MAKER Ab Negative Negative 07/17/2023 5:08 PM DOOR REPAIRMAN [facility] Comment: This test was developed and its performance characteristics determined by [facility]. It has not been cleared or approved by the Food and Drug Administration. Anti-U3 MONOGRAM MAKER (Fibrillarin) Negative Negative 07/17/2023 5:08 PM DOOR REPAIRMAN [facility] Comment: This test was developed and its performance characteristics determined by [facility]. It has not been cleared or approved by the Food and Drug Administration. ?Interpretation for Anti-Hanny-1, Isik-[id number]-8fghub, ?Anti-MDA-5, Anti-NXP-2, Anti-SAE1, Anti-PM/Scl-100, ?Anti-SS-A 52 kD, Anti-U1 MONOGRAM MAKER: ?Negative: ?<20 ?Weak Positive: ? 20 - 39 ?Moderate Positive: ? 40 - 80 ?Strong Positive: ? >80 ?. Blood (Blood, Venous) 06/29/2023 4:49 PM DOOR REPAIRMAN 06/30/2023 7:31 AM DOOR REPAIRMAN Celestino Her.B.B.S. LAB BLOOD NON ADD -ON Performing Organization Address [facility] Co de Phone Number [facility] [address] [place] [address], [facility] ENDI [facility] [address] [place] [address] * Cyclic Citrullinated Peptide Antibodies, IgG (06/29/2023 4:49 PM DOOR REPAIRMAN) Cyclic Citrullinated Peptide Ab, S <15.6 <20.0 (Negative) U 06/30/2023 10:35 AM DOOR REPAIRMAN [facility] Blood (Blood, Venous) 06/29/2023 4:49 PM DOOR REPAIRMAN 06/29/2023 7:51 PM DOOR REPAIRMAN Celestino Her.B.B.S. LAB BLOOD ADD-ON Performing Organization Address [facility] Co de Phone Number [facility] [address] [place] [address] [facility] [address] [place] [address] * (ABNORMAL) Antinuclear Antibodies, HEp-2 Substrate, IgG, Serum (06/29/2023 4:49 PM DOOR REPAIRMAN) Antinuclear Ab, HEp-2 Substrate, S Positive 1:160(A) <1:80 (Negativ e) 06/30/2023 12:15 PM DOOR REPAIRMAN [facility] Comment: ----ADDITIONAL INFORMATION---- Method: Immunofluorescence using HEp-2 cellular substrate. PAU Titer: 1:160 06/30/2023 12:15 PM DOOR REPAIRMAN [facility] PAU Pattern: Speckled 06/30/2023 12:15 PM DOOR REPAIRMAN [facility] Blood (Blood, Venous) 06/29/2023 4:49 PM DOOR REPAIRMAN 06/29/2023 8:41 PM DOOR REPAIRMAN Celestino JuarezB.S. LAB BLOOD ADD-ON [facility] [address] [place] [address] [facility] [address] [place] [address] * Antibody to Extractable Nuclear Antigen Evaluation (06/29/2023 4:49 PM DOOR REPAIRMAN) SS-A/Ro Ab, IgG, S <0.2 <1.0 (Negative) U 06/29/2023 9:06 PM DOOR REPAIRMAN SDSC SS-B/La Ab, IgG, S <0.2 <1.0 (Negative) U 06/29/2023 9:06 PM DOOR REPAIRMAN [facility] Sm Ab, IgG, S <0.2 <1.0 (Negative) U 06/29/2023 9:06 PM DOOR REPAIRMAN [facility] MONOGRAM MAKER Ab, IgG, S <0.2 <1.0 (Negative) U 06/29/2023 9:06 PM DOOR REPAIRMAN [facility]SC Scl 70 Ab, IgG, S <0.2 <1.0 (Negative) U 06/29/2023 9:06 PM DOOR REPAIRMAN SDSC Hanny 1 Ab, IgG, S <0.2 <1.0 (Negative) U 06/29/2023 9:06 PM [facility] Blood (Blood, Venous) 06/29/2023 4:49 PM DOOR REPAIRMAN 06/29/2023 7:52 PM DOOR REPAIRMAN Celestino JuarezB.S. LAB BLOOD ADD-ON [facility] [address] [place] [address] [facility] [address] [place] [address] documented in this encounter Visit Diagnoses Diagnosis Nodules Pulmonary Multiple- Primary Nodules Pulmonary Multiple documented in this encounter Additional Health Concerns Assessment Noted Time PHQ-9 Depression Total Score: 5 12/06/19 20 10:06 AM CDT documented as of this encounter Care Teams Family Consultant Relationship Specialty Start Date End Date Elsewhere, Pcp PCP - General Internal Medicine 06/28/23 documented as of this encounter
--- OUTSIDE RECORDS SUMMARY | 2023-09-05 07:29 | XMS_ITS | Encounter Summary ---
Author Name Unknown Organization [facility] Address [address] [place] [id number] Care Team Providers Care Drug Safety Specialist Name Role Phone Elsewhere, Pcp Primary Care Provider Unavailabl e Encounter Details Date Type Department Care Team (Latest Contact Info) Description 06/29/2023 9:54 AM COATING AND BAKING OPERATOR - 06/29/2023 11:59 PM COATING AND BAKING OPERATOR Hospital Encounter Department of Laboratory Medicine and Pathology, [facility], in [place], [place] [address] [place] [phone] Krishan Jeffrey M.B.B.S. [address] [place] [phone] Lung Interstitial Disease (HCC) Discharge Disposition: Home or Self Care Social History Tobacco Use Types Packs/Day Years Used Date Smoking Tobacco: Never Smokeless Tobacco: Never Alcohol Use Standard Drinks/Week Comments No 0 (1 standard drink = 0.6 oz pur e alcohol) [facility] Utilities Answer Date Recorded In the past 12 months has [employer], oil, or water [employer] threatened to shut off services in your [...] How often do you attend chur or sikh services? 1 to 4 times per year 07/01/2019 Do you belong to any clubs o r organizations such as mandaen groups, unions, fraternal or athletic groups, or [...] Answer Date Recorded PHQ-2 Score 1 12/06/2019 [facility] of Occupat ional Health - Occupational Stress [...] your living situation today? I have a [facility] place to live 06/28/2023 Education Answer Date Recorded What is the highest level of school you have completed or the highest degree you have received? GED or equivalent Sex and Gender Information Value Date Recorded Sex Assigned at Female 06/28/2023 7:21 PM COATING AND BAKING OPERATOR Gender Identity Female 07/01/2019 7:57 PM COATING AND BAKING OPERATOR Sexual Orientation Straight 07/01/2019 7: 57 PM COATING AND BAKING OPERATOR documented as of this encounter Medications at [...] 600 mg by mouth as needed. 01/26/2020 [id number] (VINATE ONE) 60 mg iron-1 mg per tablet Take 1 tablet by mouth daily. sennosides (SENOKOT) 8.6 mg tablet Take 8.6-17.2 mg by mouth. 01/26/2020 documented as of this encounter Plan of Treatment Upcoming Encounters Date Type Department Care Team (Late st Contact Info) Description 09/06/2023 1:30 PM CDT Office Visit Department of Otorhinolaryngology in [place], [place] [address] [place] [phone] Scotty Robledo P.A.-Celestino., M.S. [address] [place] [address] documented as of this encounter Procedures Procedure Name Priority Date/Time Associated Diagnosis Comments CBC WITH DIFFERENTIAL, B Routine 06/29/2023 10:08 AM COATING AND BAKING OPERATOR Lung Interstitial Disease (HCC) COMPREHENSIVE METABOLIC PANEL, S/P Routine 06/29/2023 10:08 AM COATING AND BAKING OPERATOR Lung Interstitial Disease (HCC) documented in this encounter Results * (ABNORMAL) Comprehensive Metabolic Panel (06/29/2023 10:08 AM COATING AND BAKING OPERATOR) Potassium, S 3.9 3.6 - 5.2 mmol/L 06/29/2023 11:03 AM COATING AND BAKING OPERATOR DTL Sodium, S 141 135 - 145 mmol/L 06/29/2023 11:03 AM COATING AND BAKING OPERATOR DTL Chloride, S 101 98 - 107 mmol/L 06/29/2023 11:03 AM COATING AND BAKING OPERATOR DTL Bicarbonate, S 29 22 - 29 mmol/L 06/29/2023 11:03 AM COATING AND BAKING OPERATOR DTL Anion Gap 11 7 - 15 06/29/2023 11:03 AM COATING AND BAKING OPERATOR DTL BUN (Blood Urea Nitrogen), S 8 6 - 21 mg/dL 06/29/2023 11:03 AM COATING AND BAKING OPERATOR DTL Creatinine 0.55(L) 0.59 - 1.04 mg/dL 06/29/2023 11:03 AM COATING AND BAKING OPERATOR DTL Estimated GFR (eGFR) >90 >=60 mL/min/BS A 06/29/2023 11:03 AM COATING AND BAKING OPERATOR DTL Comment: Estimated GFR calculated using the 2020 CKD_EPI creatinine equation. Calcium, Total, S 9.1 8.6 - 10.0 mg/dL 06/29/2023 11:03 AM COATING AND BAKING OPERATOR DTL Glucose, S 135 70 - 140 mg/dL 06/29/2023 11:03 AM COATING AND BAKING OPERATOR DTL Protein, Total, S 7.3 6.3 - 7.9 g/dL 06/29/2023 11:03 AM COATING AND BAKING OPERATOR DTL Albumin, S 4.5 3.5 - 5.0 g/dL 06/29/2023 11:03 AM COATING AND BAKING OPERATOR DTL Aspartate Aminotransferase (AST), S 26 8 - 43 U/L 06/29/2023 11:03 AM COATING AND BAKING OPERATOR DTL Alkaline Phosphatase, S 92 35 - 104 U/L 06/29/2023 11:03 AM COATING AND BAKING OPERATOR DTL Alanine Aminotransferase (ALT), S 33 7 - 45 U/L 06/29/2023 11:03 AM COATING AND BAKING OPERATOR DTL Bilirubin, Total, S 0.5 0.0 - 1.2 mg/dL 06/29/2023 11:03 AM COATING AND BAKING OPERATOR DTL Blood (Blood, Venous) 06/29/2023 10:08 AM COATING AND BAKING OPERATOR 06/29/2023 10:42 AM COATING AND BAKING OPERATOR Krishan Triana LAB BLOOD ADD-ON [facility] [address] [place] [address], [facility] [address] [place] [address] * (ABNORMAL) CBC with Differential, Blood (06/29/2023 10:08 AM COATING AND BAKING OPERATOR) Hemoglobin 13.7 11.6 - 15.0 g/dL 06/29/2023 11:11 AM COATING AND BAKING OPERATOR DTL Hematocrit 39.2 35.5 - 44.9 % 06/29/2023 11:11 AM COATING AND BAKING OPERATOR DTL Erythrocytes 4.38 3.92 - 5.13 x10(12)/L 06/29/2023 11:11 AM COATING AND BAKING OPERATOR DTL MCV 89.5 78.2 - 97.9 fL 06/29/2023 11:11 AM COATING AND BAKING OPERATOR DTL RBC Distrib Width 12.3 12.2 - 16.1 % 06/29/2023 11:11 AM COATING AND BAKING OPERATOR DTL Platelet Count 343 157 - 371 x10(9)/L 06/29/2023 11:11 AM COATING AND BAKING OPERATOR DTL Leukocytes 10.5(H) 3.4 - 9.6 x10(9)/L 06/29/2023 11:11 AM COATING AND BAKING OPERATOR DTL Neutrophils 6.87(H) 1.56 - 6.45 x10(9)/L 06/29/2023 11:11 AM COATING AND BAKING OPERATOR DHPM Lymphocytes 2.87 0.95 - 3.07 x10(9)/L 06/29/2023 11:11 AM COATING AND BAKING OPERATOR DTL Monocytes 0.60 0.26 - 0.81 x10(9)/L 06/29/2023 11:11 AM COATING AND BAKING OPERATOR DTL Eosinophils 0.11 0.03 - 0.48 x10(9)/L 06/29/2023 11:11 AM COATING AND BAKING OPERATOR DTL Basophils <0.03 0.01 - 0.08 x10(9)/L 06/29/2023 11:11 AM COATING AND BAKING OPERATOR DTL Blood (Blood, Venous) 06/29/2023 10:08 AM COATING AND BAKING OPERATOR 06/29/2023 10:30 AM COATING AND BAKING OPERATOR Krishan Triana LAB BLOOD ADD-ON [facility] [address] [place] [address], [facility] DTL [facility] [place] [address] [place] [address] [facility] [place] [address] [place] [address] documented in this encounter Visit Diagnoses Diagnosis Lung Interstitial Disease (HCC) documented in this encounter Additional Health Concerns Assessment Noted Time PHQ-9 Depression Total Score: 5 12/06/19 20 10:06 AM CDT documented as of this encounter Care Teams Drug Safety Specialist Relationship Specialty Start Date End Date Elsewhere, Pcp PCP - General Internal Medicine 06/28/23 documented as of this encounter
--- OUTSIDE RECORDS SUMMARY | 2023-09-05 07:29 | XMS_ITS | Encounter Summary ---
Author Name Unknown Organization [facility] Address [address] [place] [address] Care Team Providers Care Numerical Control Nesting Operator Name Role Phone Elsewhere, Pcp Primary Care Provider Unavailabl e Reason for Visit * Reason Onset Date Comments Pre-visit Testing Orders 06/23/2023 Encounter Details Date Type Department Care Team (Latest Contact Info) Description 06/23/2023 Clinical Communication Division of Pulmonary Medicine in [place], [place] [address] [place] [address] Krishan Jeffrey M.B.B.S. [address] [place] [address] Pre-visit Testing Orders Social History Tobacco Use Types Packs/Day Years Used Date Smoking Tobacco: Never Smokeless Tobacco: Never Alcohol Use Standard Drinks/Week Comments No 0 (1 standard drink = 0.6 oz pur e alcohol) [facility] Utilities Answer Date Recorded In the past [address] [facility] [employer], gas, oil, or water [employer] threatened to shut off services in your [...] How often do you attend chur or orthodoxy services? 1 to 4 times per year 07/01/2019 Do you belong to any clubs o r organizations such as quaker groups, unions, fraternal or athletic groups, or [...] Answer Date Recorded PHQ-2 Score 1 12/06/2019 [facility] of Occupat ional [facility] - Occupational Stress Questionnaire Answer Date Recorded [...] Answer Date Recorded Employment status Unemployed/not in [facility] paid workforce and NOT seeking employment 06/28/2023 Housing Stability Answer Date Recorded What is your living situation today? I have a [facility] place to live 06/28/2023 Education Answer Date Recorded What is the highest level of school you have completed or the highest degree you have received? GED or equivalent Sex and Gender Information Value Date Recorded Sex Assigned at Female 06/28/2023 7:21 PM WIRE COATER Gender Identity Female 07/01/2019 7:57 PM WIRE COATER Sexual Orientation Straight 07/01/2019 7: 57 PM WIRE COATER documented as of this encounter Plan of Treatment Upcoming Encounters Date Type Department Care Team (Late st Contact Info) Description 09/06/2023 1:30 PM CDT Office Visit Department of Otorhinolaryngology in [place], [place] [address] [place] [phone] Scotty Robledo, Jes.A.-C., M.S. 200 [place] [address] documented as of this encounter Results * Pulmonary Function Tests (06/29/2023 10:36 AM WIRE COATER) FVC 2.99 L 06/29/2023 2:52 PM WIRE COATER [facility] FEV1 2.54 L 06/29/2023 2:52 PM WIRE COATER [facility] FEV1/FVC 85.02 % 06/29/2023 2:52 PM [facility] XGA20-03% 3.01 L/s 06/29/2023 2:52 PM [facility] PEF PRE 6.33 L/s 06/29/2023 2:52 PM WIRE COATER [facility] PIF PRE 4.55 L/s 06/29/2023 2:52 PM [facility] FEF 50 % FIF 50 PRE 81.20 % 06/29/2023 2:52 PM WIRE COATER [facility] FET PRE 6.33 sec 06/29/2023 2:52 PM [facility] DLCO 20.71 ml/(min*mm Hg) 06/29/2023 2:52 PM [facility] DLCOc 20.52 ml/(min*mm Hg) 06/29/2023 2:52 PM [facility] HB 13.70 g(Hb)/dL 06/29/2023 2:52 PM WIRE COATER [facility] VA 3.95 L 06/29/2023 2:52 PM [facility] PulseRest 104.00 1/min 06/29/2023 2:52 PM [facility] TLC 4.16 L 06/29/2023 2:52 PM [facility] FRCPLETH PROVBASE 2.34 L 06/29/2023 2:52 PM WIRE COATER [facility] RV 1.17 L 06/29/2023 2:52 PM [facility] RV % TLC PRE 28.11 % 06/29/2023 2:52 PM [facility] 06/29/2023 10:3 6 AM WIRE COATER Impressions [facility] - 06/29/2023 2:52 PM WIRE COATER Abnormal. Mild restriction. Diffusion capacity is normal. Pulse oximetry is normal at rest and exercise was not performed due to inconsistent pulse rate readings between 80-125. Narrative Procedure Note Tay Vasquez M.B.BJairS. - 06/29/2023 IMPRESSION: Abnormal. Mild restriction. Diffusion capacity is normal. Pulse oximetryis normal at rest and exercise was not performed due to inconsistent pulserate readings between 80-125. Krishan Triana PFT ORDERABLES [facility] [address] * (ABNORMAL) Comprehensive Metabolic Panel (06/29/2023 10:08 AM WIRE COATER) Pathologist [facility] Potassium, S 3.9 3.6 - 5.2 mmol/L 06/29/2023 11:03 AM WIRE COATER DTL Sodium, S 141 135 - 145 mmol/L 06/29/2023 11:03 AM WIRE COATER DTL Chloride, S 101 98 - 107 mmol/L 06/29/2023 11:03 AM WIRE COATER DTL Bicarbonate, S 29 22 - 29 mmol/L 06/29/2023 11:03 AM WIRE COATER DTL Anion Gap 11 7 - 15 06/29/2023 11:03 AM WIRE COATER DTL BUN (Blood Urea Nitrogen), S 8 6 - 21 mg/dL 06/29/2023 11:03 AM WIRE COATER DTL Creatinine 0.55(L) 0.59 - 1.04 mg/dL 06/29/2023 11:03 AM WIRE COATER DTL Estimated GFR (eGFR) >90 >=60 mL/min/BS A 06/29/2023 11:03 AM WIRE COATER DTL Comment: Estimated GFR calculated using the 2020 CKD_EPI creatinine equation. Calcium, Total, S 9.1 8.6 - 10.0 mg/dL 06/29/2023 11:03 AM WIRE COATER DTL Glucose, S 135 70 - 140 mg/dL 06/29/2023 11:03 AM WIRE COATER DTL Protein, Total, S 7.3 6.3 - 7.9 g/dL 06/29/2023 11:03 AM WIRE COATER DTL Albumin, S 4.5 3.5 - 5.0 g/dL 06/29/2023 11:03 AM WIRE COATER DTL Aspartate Aminotransferase (AST), S 26 8 - 43 U/L 06/29/2023 11:03 AM WIRE COATER DTL Alkaline Phosphatase, S 92 35 - 104 U/L 06/29/2023 11:03 AM WIRE COATER DTL Alanine Aminotransferase (ALT), S 33 7 - 45 U/L 06/29/2023 11:03 AM WIRE COATER DTL Bilirubin, Total, S 0.5 0.0 - 1.2 mg/dL 06/29/2023 11:03 AM WIRE COATER DTL Blood (Blood, Venous) 06/29/2023 10:08 AM WIRE COATER 06/29/2023 10:42 AM WIRE COATER Krishan Triana LAB BLOOD ADD-ON [facility] [address] [place] [address], [facility] [address] [place] [address] * (ABNORMAL) CBC with Differential, Blood (06/29/2023 10:08 AM WIRE COATER) Hemoglobin 13.7 11.6 - 15.0 g/dL 06/29/2023 11:11 AM WIRE COATER DTL Hematocrit 39.2 35.5 - 44.9 % 06/29/2023 11:11 AM WIRE COATER DTL Erythrocytes 4.38 3.92 - 5.13 x10(12)/L 06/29/2023 11:11 AM WIRE COATER DTL MCV 89.5 78.2 - 97.9 fL 06/29/2023 11:11 AM WIRE COATER DTL RBC Distrib Width 12.3 12.2 - 16.1 % 06/29/2023 11:11 AM WIRE COATER DTL Platelet Count 343 157 - 371 x10(9)/L 06/29/2023 11:11 AM WIRE COATER DTL Leukocytes 10.5(H) 3.4 - 9.6 x10(9)/L 06/29/2023 11:11 AM WIRE COATER DTL Neutrophils 6.87(H) 1.56 - 6.45 x10(9)/L 06/29/2023 11:11 AM WIRE COATER DHPM Lymphocytes 2.87 0.95 - 3.07 x10(9)/L 06/29/2023 11:11 AM WIRE COATER DTL Monocytes 0.60 0.26 - 0.81 x10(9)/L 06/29/2023 11:11 AM WIRE COATER DTL Eosinophils 0.11 0.03 - 0.48 x10(9)/L 06/29/2023 11:11 AM WIRE COATER DTL Basophils <0.03 0.01 - 0.08 x10(9)/L 06/29/2023 11:11 AM WIRE COATER DTL Blood (Blood, Venous) 06/29/2023 10:08 AM WIRE COATER 06/29/2023 10:30 AM WIRE COATER Krishan Triana LAB BLOOD ADD-ON [facility] [address] [place] [address], [facility] DTL [facility] [address] [place] [address] [facility] [place] [address] [place] [address] documented in this encounter Visit Diagnoses Diagnosis Lung Interstitial Disease (HCC)- Primary documented in this encounter Additional Health Concerns Assessment Noted Time PHQ-9 Depression Total Score: 5 12/06/19 20 10:06 AM CDT documented as of this encounter Care Teams Numerical Control Nesting Operator Relationship Specialty Start Date End Date Elsewhere, Pcp PCP - General Internal Medicine 06/28/23 documented as of this encounter
--- OUTSIDE RECORDS SUMMARY | 2023-09-05 07:29 | XMS_ITS | Encounter Summary ---
Author Name Unknown Organization [facility] Address [address] [place] [address] Care Team Providers Care Unarmed Security Guard Name Role Phone Unavailable Primary Care Provider Unavailabl e Reason for Visit * Reason Onset Date Comments [facility] - Outside Materials 06/24/2023 Encounter Details Date Type Department Care Team (Latest Contact Info) Description 06/24/2023 Clinical Communication Division of Pulmonary Medicine in [place], [place] [address] [place] [address] Krishan Jeffrey M.B.B.S. [address] [place] [address] [facility] - Outside Materials Social History Tobacco Use Types Packs/Day Years [...] often do you attend chur ch or lutheran services? 1 to 4 times per year 07/01/2019 Do you belong to any clubs o r organizations such as yazdanism groups, unions, fraternal or athletic groups, or [...] Answer Date Recorded PHQ-2 Score 1 12/06/2019 [facility] of Occupat ional Health - [...] Sex Assigned at Female 06/28/2023 7:21 PM MARKETING PROGRAM MANAGER Gender Identity Female 07/01/2019 7:57 PM MARKETING PROGRAM MANAGER Sexual Orientation Straight 07/01/2019 7: 57 PM MARKETING PROGRAM MANAGER documented as of this encounter Miscellaneous Notes * Telephone Encounter - Evangelina Ya - 06/24/2023 3:23 PM CST Received PFTs and provider notes, uploaded to DocViewer. ETING PROGRAM MANAGER * Telephone Encounter - Evangelina Ya - 06/24/2023 2:15 PM CST Pulmonary Note: Outside Materials Request Facility: [facility] Phone: Requested Records: PFTs , Provider Notes To be delivered by: Fax Additional Notes: Faxed request that PFT reports and provider notes be faxed over. ETING PROGRAM MANAGER documented in this encounter Plan of Treatment Upcoming Encounters Date Type Department Care Team (Late st Contact Info) Description 09/06/2023 1:30 PM CDT Office Visit Department of Otorhinolaryngology in [place], [place] [address] [place] [address] Scotty Robledo, P.A.-C., M.S. [address] [place] [address] documented as of this encounter Visit Diagnoses Not on filedocumented in this encounter Additional Health Concerns Assessment Noted Time PHQ-9 Depression Total Score: 5 12/06/19 20 10:06 AM CDT documented as of this encounter
[2023-09-05] MEDS: ONDANSETRON 2 MG/ML inj 4 MG IVP (07:31)
[2023-09-05] MEDS: KETOROLAC 15 MG/ML inj IVP (07:31)
[2023-09-05 08:01] LABS: Appearance Urine Clear (Clear); Bilirubin Urine Negative (Negative); Blood Urine 1+ (Negative); Color Urine Light yellow (Yellow); Glucose Urine Negative (Negative); Ketones Urine Negative (Negative); Leukocyte Esterase Urine Negative (Negative); Nitrite Urine Negative (Negative); Protein Urine Negative (Negative); Urobilinogen Urine 0.2 (0.2-1.0); pH Urine 6.5 (5.0-8.5)
[2023-09-05 08:11] LABS: Bacteria Urine Few; Squamous Epithelial Cell Urine Few (None-Few); WBC Urine 0-2 (0-5)
== END 2023-09-05 09:29 | disposition home or self-care (01) ==
PROVIDERS: Emergency Provider Family Medicine; PCP Family Medicine
DX: R51.9 Headache, unspecified (principal); M79.10 Myalgia, unspecified site
CPT/HCPCS: 81001; 87086; 96374; 96375; 99283; 99284; J1885; J2405; J7030

== ENCOUNTER 2024-01-24 19:47 | Emergency (ER) | payer MEDICARE, SELFPAY ==
[2024-01-24 20:31] VITALS: BP 157/110; PULSE 108; RESP 16; TEMP 37; O2SAT 94; BMI 31.1
--- NOTE | 2024-01-24 20:36 | ED_ITS ---
HPI - Neck Pain/Injury General Time Seen by Provider: 20:36 Date Seen: 01/24/24 Chief Complaint: Neck Injury/Pain Stated Complaint: Neck pain Time Seen by Provider: 01/24/24 20:35 Source: patient and stocking inspector Mode of arrival: ambulatory Limitations: language barrier History of Present Illness HPI Narrative: Liv is a very pleasant 33-year-old female with history of hearing impairment, chronic low back pain, hypertension who comes to the emergency room for evaluation regarding worsening neck pain. Liv noted on January 15 she was trying to get out of bed and actually used her head to pressure self up. When she did this she felt a crack in the side of her neck and had instant pain. She notes that this pop that she felt is not nothing like she has ever felt before and she has had persisting pain. She notes the pain mainly on the left side of the neck. She initially went to urgent care at which time they gave her a muscle relaxer and steroids. She thought that the muscle relaxers help somewhat but now notes that nothing is helping her discomfort. She notes that over this past weekend she could not sleep because of the pain. It is now begun radiating down her left arm and into her head up to her moravian causing her to have a headache. She has not had any fever chills visual changes or dizziness. She has had caregivers non medical in the past for neck pain but it never really seemed to help. Movement increases her pain. Related Data Home Medications ?Medication ?Instructions ?Recorded ?Confirmed ibuprofen PO 01/16/24 01/16/24 Previous Rx's ?Medication ?Instructions ?Recorded cyclobenzaprine 5 mg tablet 5 - 10 mg (1 - 2 x 5 mg) PO Q8H 01/16/24 PRN muscle spasm #14 tabs Allergies Allergy/AdvReac Type Severity Reaction Status Date / Time Penicillins Allergy Mild Rash Verified 01/24/24 21:17 sulfamethoxazole Allergy Mild Rash Verified 01/24/24 21:17 [From Sulfamethoxazole-Trimethoprim] trimethoprim Allergy Mild Rash Verified 01/24/24 21:17 [From Sulfamethoxazole-Trimethoprim] latex Allergy Unknown uncertain, Verified 01/24/24 21:17 had a reaction to a balloon once, not since Review of Systems Status of ROS: Reports: 6 or more systems reviewed and unremarkable except as noted in History and below Const: Denies: fever or chills Eyes: Denies: change in vision, blurry vision or seeing flashes ENMT: Reports: neck pain; Denies: throat swelling or vertigo Cardio: Denies: chest pain or shortness of breath with exertion Resp: Denies: shortness of breath GI: Denies: abdominal pain or nausea Musculo: Reports: neck pain Neuro: Reports: headache; Denies: numbness in extremities, weakness in extremities, dizziness or vertigo Allergy/Immuno: Denies: throat swelling PFSH PFSH Medical History Hx of hematuria ?Z87.448 - Personal history of other diseases of urinary system (ICD-10) Scoliosis of lumbar spine ?M41.9 - Scoliosis, unspecified (ICD-10) Positive PAU (antinuclear antibody) ?R76.8 - Other specified abnormal immunological findings in serum (ICD-10) Polycystic ovary syndrome ?E28.2 - Polycystic ovarian syndrome (ICD-10) History of fatty infiltration of liver ?Z87.19 - Personal history of other diseases of the digestive system (ICD-10) Environmental allergies ?Z91.09 - Other allergy status, other than to drugs and biological substances (ICD-10) Essential hypertension ?I10 - Essential (primary) hypertension (ICD-10) Hearing impaired ?H91.90 - Unspecified hearing loss, unspecified ear (ICD-10) Hyperlipidemia ?E78.5 - Hyperlipidemia, unspecified (ICD-10) Asthma ?J45.909 - Unspecified asthma, uncomplicated (ICD-10) Depression ?F32.A - Depression, unspecified (ICD-10) History of delivery, currently ?O09.899 - Supervision of other high risk pregnancies, unspecified trimester (ICD-10) Surgical History Hx of cystoscopy ?Z98.890 - Other specified postprocedural states (ICD-10) History of colposcopy ?Z98.890 - Other specified postprocedural states (ICD-10) Hx of cholecystectomy ?Z90.49 - Acquired absence of other specified parts of digestive tract (ICD- 10) History of bunionectomy ?Z98.890 - Other specified postprocedural states (ICD-10) Hx of hernia repair ?Z98.890 - Other specified postprocedural states (ICD-10) ?Z87.19 - Personal history of other diseases of the digestive system (ICD-10) Family History Other Cancer High blood pressure Multiple sclerosis Social History What is your current living situation?: I presently have a place to live Problems where you live: pests, such as bugs, ants, or mice and carbon monoxide detectors missing or not working In the past 12 months, utilities in danger of being shut off: no In past 12 months, lack of transportation kept you from medical appts, meetings, work, or getting things needed for daily living: no In the past 12 mos, have been you worried that your food would run out before you had money to buy more?: never true In the past 12 mos, the food you bought just didn't last and you didn't have money to buy more?: never true Smoking Status: Never smoker Do you use any of these nicotine containing products: None Second hand tobacco smoke exposure: No How often do you have a drink containing alcohol: monthly or less How many standard drinks containing alcohol do you have on a typical day: 1 or 2 AUDIT-C Alcohol total score: 1 Non-prescribed substance use: marijuana (any form) How often does anyone, including family, friends and others, physically hurt you : never How often does anyone, including family, friends and others, insult or talk down to you: fairly often How often does anyone, including family, friends and others, threaten you with harm: never How often does anyone, including family, friends and others, scream or curse at you: never Little interest or pleasure in doing things: more than half the days Feeling down, depressed, or hopeless: more than half the days service: No Exam Narrative: Exam Narrative: Liv is alert and oriented. Our exam is conducted with the assistance of an getterer. Head is atraumatic normocephalic. TM on the left is within normal limits. Face is without evidence of lesions or rash. Smile is symmetrical as is eyebrow raise. Patient has tenderness noted over the left paraspinal musculature. No midline point tenderness but patient describes a strange pressure when I do press in this area. Spurling sign positive on the left. Upper extremity strength and motor intact. Symmetrical. 5/5. Decreased DTR on the left at 1+ and on the right at 2+. Accounting Consultant strength intact. Heart with regular rate and rhythm and lungs clear to auscultation. Const: Vital Signs, click to edit/add: Vital Signs - 24 hr 01/24/24 20:31 Temperature 98.6 F Pulse Rate [Pulse Oximeter] 108 H Respiratory Rate 16 Blood Pressure [Le ft Upper Arm] 157/110 H Pulse Oximetry 94 Oxygen Delivery Me thod Room Air Documenting provider has reviewed patient's vital signs: yes Course Course ED Course: Differential diagnosis includes but is not limited to cervical radiculopathy, cervical radiculitis, vertebral artery dissection, disc pathology, cervical fracture. Patient has had worsening pain since initial injury on January 15. Not improved with muscle relaxers or steroids. Ideally I would have liked to have been able to order MRI for Liv but I do not have that available to me this evening. I do talk about risk of radiation with CT but just would like to proceed. I do recommend CTA as what she describes as a popping sensation with worsening pain could possibly indicate vertebral artery dissection. She agrees with this. Point of care creatinine is ordered. Reevaluation(s) Reevaluation #1: Creatinine 0.8. Vital Signs Vital signs: Initial Vital Signs Temperature 98.6 F 01/24/24 20:31 Temperature Source Temporal Artery Scan 01/24/24 20:31 Pulse Rate 108 H 01/24/24 20:31 Pulse Rhythm Regular 01/24/24 20:31 Pulse Strength 3+ Normal 01/24/24 20:31 Respiratory Rate 16 01/24/24 20:31 Blood Pressure 157/110 H 01/24/24 20:31 Blood Pressure Mean 125 H 01/24/24 20:31 Blood Pressure Position Sitting 01/24/24 20:31 Pulse Oximetry 94 01/24/24 20:31 Oxygen Delivery Method Room Air 01/24/24 20:31 Vital Signs Temperature 98.6 F 01/24/24 20:31 Pulse Rate 108 H 01/24/24 20:31 Respiratory Rate 16 01/24/24 20:31 Blood Pressure 157/110 H 01/24/24 20:31 Pulse Oximetry 94 01/24/24 20:31 Oxygen Delivery Method Room Air 01/24/24 20:31 Temperature 98.6 F 01/24/24 20:31 Pulse Rate 108 H 01/24/24 20:31 Respiratory Rate 16 01/24/24 20:31 Blood Pressure 157/110 H 01/24/24 20:31 Pulse Oximetry 94 01/24/24 20:31 Oxygen Delivery Method Room Air 01/24/24 20:31 MDM - Neck Pain/Injury MDM Narrative Medical decision making narrative: 1. Cervical spine pain-CT and CTA reassuring with no evidence of fracture, dissection. At this time I do suggest referral to the plant technical specialist at [facility] for evaluation, MRI/PT or injection consideration . We did speak briefly about wearing a cervical collar. Liv did not seem enthusiastic about that. I have decided to give her a small amount of Vicodin tablets for use at night so she is able to sleep. I did state I would not be refilling these nor would anyone in the ED refill narcotics for this particular problem. Recommend icing to the area instead of heat. Patient denies history of addiction. A check of the CLEAN ROOM ASSEMBLER confirms no recent narcotic prescriptions. 2. Disposition-home at this time. Return as needed for worsening symptoms. Medical Records Attestation: I reviewed the patient's medical records. Lab Data Attestation: I reviewed the patient's lab results. Labs: Lab Results 01/24/24 Range/Units 20:48 POC Creatinine 0.8 (0.6-1.3) mg/dl Imaging Data Cervical spine CT: Attestation: I have reviewed the pertinent imaging results. Radiologist's impression: The overall stature, alignment of the cervical spine is within normal limits. No fractures. No significant spinal canal stenosis or neural foramen narrowing. Prevertebral soft tissues, cervical airway, dens and lateral masses are within normal limits. Incidental fatty atrophy of the parotid glands. Impression: 1. No convincing radiographic evidence of acute osseous injury. Neck angiogram: Attestation: I have reviewed the pertinent imaging results. My impression: Preliminary read Radiologist's impression: Study:?CT-Neck Angio W/ 95CC ISOVUE 370-01/24/2024 9:24:10 PM Ordering Physician:Anny Gastelum Preliminary Report: 1. No evidence of proximal artery occlusion, high grade stenosis, aneurysm, dissection, or vascular malformation. 2. Final report per neurointerventional radiology service. Discharge Plan Discharge Clinical Impression: Cervical spine pain Patient Disposition: Home, Self-Care Condition: Unchanged Additional Instructions: Your CT did not show any abnormalities. An MRI is low indicated as this can visualize ligaments as well as the nerve and disc between the vertebrae. Your angiogram did not show any problem with the vessel surrounding the neck. At this time I recommend ibuprofen as needed for discomfort. I will give you a few tablets of a pain medicine called [place] or Vicodin. This is a combination med of Tylenol and a narcotic called hydrocodone. Do not use alcohol nor drive when using this medication. We will not refill this medication in the emergency room. Follow-up with the spine physicians at [facility]. The phone number is [phone]. The 2 physicians who work they are dealing with spine are Dr. Lacey and Dr. Ridley. Seek medical attention or return to the emergency room for worsening symptoms. Prescriptions: No Action ibuprofen PO cyclobenzaprine 5 mg tablet 5 - 10 mg PO Q8H PRN (Reason: muscle spasm) Qty: 14 0RF Rx Instructions: Take 1-2 tablets every 8 hours as needed for muscle spasm. Follow Up/Referrals: Yanick Valle MD [Primary Care Provider] - Stand Alone Forms: [employer] Info Instructions
--- NOTE | 2024-01-24 20:48 | CRLHL7_ITS ---
For Patients: As a result of the Century Cures Act, medical imaging exams and procedure reports are released immediately into your electronic medical record. You may view this report before your referring provider. If you have questions, please contact your health care provider. Indication: NECK PAIN W/ RADIATION LT HEADACHE POST TRAUMA Technique: Noncontrast axial CT of the cervical spine with coronal and sagittal reformats are provided. Comparison: No prior studies available for comparison at this institution. Findings: The overall stature, alignment of the cervical spine is within normal limits. No fractures. No significant spinal canal stenosis or neural foramen narrowing. Prevertebral soft tissues, cervical airway, dens and lateral masses are within normal limits. Incidental fatty atrophy of the parotid glands. Impression: 1. No convincing radiographic evidence of acute osseous injury. Please note that all CT scans at this facility use dose modulation, iterative reconstruction, and/or weight-based dosing when appropriate to reduce radiation dose to as low as reasonably achievable. Dictated by Roderick Vazquez MD @ 01/24/2024 9:41:15 PM (Electronically Signed)
--- NOTE | 2024-01-24 20:48 | CRLHL7_ITS ---
For Patients: As a result of the Century Cures Act, medical imaging exams and procedure reports are released immediately into your electronic medical record. You may view this report before your referring provider. If you have questions, please contact your health care provider. CLINICAL HISTORY: Headache and neck pain. TECHNIQUE: Standard helical CT image acquisition through the neck was performed after intravenous contrast bolus enhancement. 3D and MIP reconstructions were performed at a separate workstation and permanently archived. COMPARISON: None available. FINDINGS: The origins of the great vessels from the aortic arch are patent. The common carotid arteries are patent. No significant luminal stenoses of the proximal ICAs by NASCET criteria. The more distal cervical segments of the ICAs are patent. The origins and cervical segments of the vertebral arteries are patent. IMPRESSION: Patent cervical arterial vasculature without hemodynamically significant luminal stenosis. No evidence of traumatic vascular injury. Please note that all CT scans at this facility use dose modulation, iterative reconstruction, and/or weight-based dosing when appropriate to reduce radiation dose to as low as reasonably achievable. Dictated by Jack Car MD @ 01/25/2024 3:00:36 PM (Electronically Signed)
--- OUTSIDE RECORDS SUMMARY | 2024-01-24 21:04 | XMS_ITS | Clinical Summary ---
Author Organization [facility] Address [address] [place] [address] Care Team Providers Care Php Software Engineer Name Role Phone Elsewhere, Pcp Primary Care Provider Unavailabl e Source Comments Patient records contain information from all sites at [facility]. For routine questions regarding patient records, call [phone] during business hours, M-F 8:00 AM - 5:00 PM Central Time. Record requests for emergency care only can be directed to [phone] at any time.[facility] Allergies Active Allergy Reactions Criticality Noted Date Comments Latex Other (see comments),Itching 01/04/2008 Possible reaction, not confirmed Pt reports a little tightness with breathing and itching Penicillins Hives (Reselect Reaction),Other (see comments),Rash Low 01/04/2008 Sulfa (Sulfonamide Antibiotics) Other (see comments) 11/12/2009 Unknown reaction Sulfamethoxazole Rash Low 08/16/2023 Sulfamethoxazole-Trimethop rim Other (see comments) 06/04/2008 Cerner list no reaction Trimethoprim Rash Low 08/16/2023 Medications Medication Sig Dispensed Refills Start Date End Date Status yofzqaz-Ch-doyr-FA (VINATE ONE) 60 mg iron-1 mg per tablet Take 1 tablet by mouth daily. Active acetaminophen (TYLENOL) 500 mg tablet Take 1,000 mg by mouth as needed. 01/26/2020 Active ibuprofen (ADVIL,MOTRIN) 600 mg tablet Take 600 mg by mouth as needed. 01/26/2020 Active budesonide (Pulmicort) 0.5 mg/2 mL nebulizer solution Mix 1 ampule in sinus irrigation bottle and irrigate twice daily. 360 mL 3 08/23/2023 Active clindamycin (Cleocin) 300 mg capsule TAKE ONE CAPSULE BY MOUTH EVERY TWELVE HOURS* 11/30/2022 Active Active Problems Patient Care Coordination No te Formatting of this note migh t be different from the original. OB education completed. Pre-reg completed at [facility]. LMP:05/18/2019 EDC:02/22/2020 [place] provider:Dr. 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 Encounters Date Type Department Care Team Description 01/06/2024 Orders Only Division of Pulmonary Medicine in [place], [place] [address] [place] [phone] Krishan Jeffrey M.B.B.S. 12/08/2023 Orders Only Department of Otorhinolaryngology in [place], [place] [address] [place] [phone] Julieta Brice M.D. 12/06/2023 4:00 PM CDT Office Visit Department of Otorhinolaryngology in [place], [place] [address] [place] [phone] Julieta Brice M.D. Deviation Nasal Septal (Primary Dx); Obstruction Nasal 12/06/2023 2:45 PM CDT - 12/06/2023 11:59 PM CDT Hospital Encounter Department of Laboratory Medicine and Pathology, [place], [place] [address] [place] [phone] Krishan Jeffrey M.B.B.S. Lung Interstitial Disease (HCC) Discharge Disposition: Home or Self Care 11/22/2023 11:00 AM CDT Office Visit Division of Pulmonary Medicine in [place], [place] [address] [place] [phone] Krishan Jeffrey M.B.B.SJair Lung Interstitial Disease (HCC) (Primary Dx) 11/22/2023 7:37 AM CDT - 11/22/2023 11:59 PM CDT Hospital Encounter Department of Laboratory Medicine and Pathology, [place], [place] [address] [place] [phone] Celestino Hudson MJairB.B.S. 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 Lawlor, Skye K, M.D. Deviation Nasal Septal (Primary Dx); Rhinosinusitis Chronic; Obstruction Nasal 11/08/2023 Clinical Communication Department of Otorhinolaryngology in [place], [place] [address] [place] [phone] Julieta Brice M.D. 11/05/2023 Orders Only [facility] [address] [place] [phone] Krishan Jeffrey M.B.B.S. 11/05/2023 Clinical Communication Division of Pulmonary Medicine in [place], [place] [address] [place] [phone] Krishan Jeffrey M.B.B.S. 11/01/2023 Orders Only Division of Pulmonary Medicine in [place], [place] [address] [place] [phone] Celestino Hudson MJairB.B.S. 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 1 to 4 times per year 07/01/2019 Do you belong to any clubs o r organizations such as mu-ism groups, unions, fraternal or athletic groups, or [...] Answer Date Recorded PHQ-2 Score 1 12/06/2019 [facility] [...] Answer Date Recorded Employment status Unemployed/not in [employer] paid workforce and NOT seeking employment 06/28/2023 Housing Stability Answer Date Recorded What is your living situation today? I have a [facility] place to live 06/28/2023 Education Answer Date Recorded What is the highest level of school you have completed or the highest degree you have received? GED or equivalent Sex and Gender Information Value Date Recorded Sex Assigned at Female 06/28/2023 7:21 PM CLINICAL ALLERGIST Gender Identity Female 07/01/2019 7:57 PM CLINICAL ALLERGIST Sexual Orientation Straight 07/01/2019 7: 57 PM CLINICAL ALLERGIST Last Filed Vital Signs Vital Sign Reading Time Taken Comments Blood Pressure 152/102 11/22/2023 10:56 AM CDT Pulse 75 11/22/2023 10:56 AM CDT Temperature 36.9 ??C (98.4 ??F) 11/22/2023 10:56 AM C DT Respiratory Rate 16 05/19/2019 11:20 AM CLINICAL ALLERGIST Oxygen Saturation 99% 11/22/2023 10:56 AM CDT Inhaled Oxygen Concentration - - Weight 76.7 kg (169 lb 1.5 oz) 11/22/2023 10:56 AM CDT Height 161.1 cm (5' 3.43) 11/22/2023 10:56 AM C DT Body Mass Index 29.55 11/22/2023 10:56 AM CDT Plan of Treatment Upcoming Encounters Date Type Department Care Team (Latest Contact Info) Description 02/11/2024 4:20 PM CDT Appointment Department of Laboratory Medicine and Pathology, [facility], in [place], [place] [address] [place] [phone] Julieta Brice M.D. 200 [place] [phone] 02/14/2024 12:49 PM CDT Hospital Encounter Post Anesthesia Care Unit in [address] [phone] Oh Camp M.D., M.S. [address] [place] [phone] 02/14/2024 12:49 PM CDT - 02/14/2024 3:46 PM CDT Surgery [facility] MAIN OR [address] [place] [phone] Oh Camp M.D., M.S. [address] [place] [phone] SEPTOPLASTY 02/22/2024 7:30 AM CDT Office Visit Department of Otorhinolaryngology in [address] [phone] Julieta Brice M.D. [address] [place] [phone] Scheduled Procedures Name Priority Associated Diagnoses Date/Ti me SEPTOPLASTY Deviation Nasal Septal 02/14/2024 12:49 PM CDT REDUCTION TURBINATE Deviation Nasal Septal 02/14/2024 12:49 PM CDT Health Maintenance Due Date Last Done Comments HIV Screening 1988 Hepatitis C Screening 1988 Pneumococcal vaccine (0-64 y ears) (1 of 2 - PCV) 1994 Varicella Vaccines (2 of 2 - 2-dose childhood series) 11/22/2000 08/30/2000 Cervical Cancer Screening 05/16/2022 05/16/2019 Glucose Monitoring for Gesta tional Diabetes 05/16/2023 Depression Screening (Annual PHQ-2) 05/17/2023 COVID-19 Vaccine (4 - 2022-2 4 season) 2024 04/07/2022, 02/26/2021, 02/05/2021 Influenza Vaccine (#1) 2024 2, 08/22/2021, 03/17/2019, Additional history exists Office Visit for Blood Press ure Check / Re-check 02/22/2024 11/22/2023 Lipid (Cholesterol) Screening 05/16/2024, 05/13/2018, 09/16/2015 DTaP,Tdap,and Td Vaccines (9 - Td or Tdap) 06/23/2031 06/23/2021, 12/06/2019, 09/12/2010, Additional history exists Hepatitis B Vaccines Completed 06/08/2001, 11/10/2000, 09/27/2000 Hepatitis A Vaccines Completed 09/12/2010, 02/26/20 HPV Vaccines Completed 07/13/2012, 07/2010, 10/17/2010, Additional history exists Procedures Procedure Name Priority Date/Time Associated Diagnosis Comments HISTOPLASMA AB COMPFIX/IMMDIFF, S Routine 12/06/2023 3:04 PM CDT Lung Interstitial Disease (HCC) PULMONARY FUNCTION TESTS Routine 8:51 AM CDT 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) MICROSCOPIC MANUAL Routine 11/22/2023 8:20 AM CDT DIPSTICK, U Routine 11/22/2023 8:20 AM CDT OSMOLALITY, U Routine 11/22/2023 8:20 AM CDT PH, U Routine 11/22/2023 8:20 AM CDT URINALYSIS WITH MICROSCOPIC Routine 11/22/2023 8:20 AM CDT 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) ANCA VASCULITIS PANEL, S Routine 024 8:09 AM CDT 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) C-REACTIVE PROTEIN (CRP), S/P Routine 11/22/2023 8:09 AM CDT 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) CBC WITH DIFFERENTIAL, B Routine 024 8:09 AM CDT 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) CT SINUSES WITHOUT IV CONTRAST RAD - Routine (most inpatients and all outpatients) 11/21/2023 2:08 PM CDT Rhinosinusitis Chronic CT CHEST WITHOUT IV CONTRAST RAD - Routine (most inpatients and all outpatients) 11/21/2023 2:08 PM CDT 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) OTORHINOLARYNGOLOGY IMAGE EXAM Routine 11/08/2023 9:15 AM CDT LIPID PANEL, S Routine 09/16/2015 11:30 AM CDT from Last 3 Months or Most Recently Relevant to Health Maintenance Results * (ABNORMAL) Histoplasma Antibody Complement Fixation and Immunodiffusion (12/06/2023 3:04 PM CDT) Pathologist [facility] Histoplasma Yeast CompFix, S 1:32(A) Negative 12/09/2023 12:01 PM CDT [facility] Comment:REPORTABLE DISEASE Histoplasma Immunodiffusion, S Negative Negative 12/09/2023 12:01 PM CDT [facility] Blood (Blood, Venous) 12/06/2023 3:04 PM CDT 12/06/2023 8:14 PM CDT Krishan Triana LAB BLOOD ADD-ON [facility] [address] [place] [address] [facility] [address] [place] [address] [place] [phone] * Pulmonary Function Tests (11/22/2023 8:51 AM CDT) Pathologist [facility] FVC 3.08 L 11/22/2023 3:14 PM CDT [facility] FEV1 2.58 L 11/22/2023 3:14 PM CDT [facility] FEV1/FVC 83.78 % 11/22/2023 3:14 PM CDT [facility] YVP44-43% 2.87 L/s 11/22/2023 3:14 PM CDT [facility] PEF PRE 8.31 L/s 11/22/2023 3:14 PM CDT [facility] PIF PRE 5.72 L/s 11/22/2023 3:14 PM CDT [facility] FEF 50 % FIF 50 PRE 70.14 % 11/22/2023 3:14 PM CDT [facility] FET PRE 9.02 sec 11/22/2023 3:14 PM CDT [facility] DLCO 19.31 ml/(min*mm Hg) 11/22/2023 3:14 PM CDT [facility] DLCOc 19.03 ml/(min*mm Hg) 11/22/2023 3:14 PM CDT [facility] HB 13.90 g(Hb)/dL 11/22/2023 3:14 PM CDT [facility] VA 3.79 L 11/22/2023 3:14 PM CDT [facility] TLC 4.53 L 11/22/2023 3:14 PM CDT [facility] FRCPLETH PROVBASE 2.36 L 11/22/2023 3:14 PM CDT [facility] RV 1.45 L 11/22/2023 3:14 PM CDT [facility] RV % TLC PRE 31.99 % 11/22/2023 3:14 PM CDT [facility] 11/22/2023 8:51 AM CDT Impressions [facility] - 11/22/2023 3:14 PM CDT Normal spirometry, lung volumes and diffusion capacity. Compared to 06/29/2023, TLC has increased. Narrative Procedure Note Tay Vasquez M.B.BJairS. - 11/22/2023 IMPRESSION: Normal spirometry, lung volumes and diffusion capacity. Compared to06/29/2023, TLC has increased. Celestino D Tristan M.B.B.S. PFT ORDERABLES [facility] [address] * (ABNORMAL) Dipstick, Urine (11/22/2023 8:20 AM CDT) Hemoglobin, QL, U Moderate(A) Negative 11/22/2023 9:57 AM CDT DTL Leukocyte Esterase, U Negative Negative 11/22/2023 9:57 AM CDT DTL Nitrite, U Negative Negative 11/22/2023 9:57 AM CDT DTL Ketone, U Negative Negative mg/dL 11/22/2023 9:57 AM CDT DTL Glucose, U Negative Negative mg/dL 11/22/2023 9:57 AM CDT DTL Urine 11/22/2023 8:20 AM CDT 11/22/2023 9:05 AM CDT Celestino Her.B.B.S. LAB URINE ORDERAB LES Performing Organization Address [facility]/ZIP Co de Phone Number [facility] [address] [place] [address], [facility] [place] [address] * (ABNORMAL) Microscopic Manual (11/22/2023 8:20 AM CDT) Microscopy Abnormal 11/22/2023 12:16 PM CDT DTL RBC 3-10(A) <3 /hpf 11/22/2023 12:16 PM CDT DTL Dysmorphic RBC <25 <25 % 11/22/2023 12:16 PM CDT DTL WBC 1-3 /hpf 11/22/2023 12:16 PM CDT DTL Comment: ----REFERENCE VALUE---- <4 ??(Males) <11 (Females) Casts, Hyaline Occas /lpf 11/22/2023 12:16 PM CDT DTL Casts, Granular Occas(A) /lpf 12:16 PM CDT DTL Renal Epithelial Cells 1-3(A) /hpf 11/22/2023 12:16 PM CDT DTL Squamous Epithelial Cells, U 4-10 /hpf 11/22/2023 12:16 PM CDT DTL Bacteria Present(A) 11/22/2023 12:16 PM CDT DTL Urine 11/22/2023 8:20 AM CDT 11/22/2023 9:56 AM CDT Celestino Hudson M.B.B.S. LAB URINE ORDERAB LES [facility] [address] [place] [address] * pH, Urine (11/22/2023 8:20 AM CDT) pH, U 5.5 4.5 - 8.0 11/22/2023 10: 21 AM CDT DTL Urine 11/22/2023 8:20 AM CDT 11/22/2023 9:05 AM CDT Celestino Hudson M.B.B.S. LAB URINE ORDERAB LES Performing Organization Address City/[facility]/ZIP Co de Phone Number [facility] [address] [place], [place] [phone] [place] [address] 200 [place] [address] * Osmolality, Urine (11/22/2023 8:20 AM CDT) Osmolality, U 610 150 - 1150 mOsm/kg 11/22/2023 10:21 AM CDT DTL Urine 11/22/2023 8:20 AM CDT 11/22/2023 9:05 AM CDT Celestino Clinei M.B.B.S. LAB URINE ORDERAB LES [facility] [address] [place] [address] * Urinalysis, with Microscopic: Urine, Midstream (11/22/2023 8:20 AM CDT) Source Urine, Urine, Midstream 11/22/2023 9:05 AM CDT DTL Color, U Yellow 11/22/2023 9:05 AM CDT DTL Clarity, U Clear 11/22/2023 9:05 AM CDT DTL Protein, U 11 <26 mg/dL 11/22/2023 9:46 AM CDT DTL Protein/Osmol ality 0.18 <0.42 ratio 11/22/2023 10:21 AM CDT DTL Predicted 24 HR Protein, U 141 <229 mg/24 h 11/22/2023 10:21 AM CDT DTL Predicted Range 35-572 mg/24 h 11/22/2023 10:21 AM CDT DTL Urine (Urine, Midstream) 11/22/2023 8:20 AM CDT 11/22/2023 9:05 AM CDT Celestino Her.B.B.S. LAB URINE ORDERAB LES [facility] [address] [place] [address], [facility] [address] [place] [address] * ANCA (Antineutrophil Cytoplasmic Antibodies) Vasculitis Panel (11/22/2023 8:09 AM CDT) Pathologist [facility] Myeloperoxidase Ab, S <0.2 <0.4 (Negative ) U 11/22/2023 3:33 PM CDT [facility] Proteinase 3 Ab (PR3), S <0.2 <0.4 (Negative ) U 11/22/2023 3:33 PM CDT [facility] Blood (Blood, Venous) 11/22/2023 8:09 AM CDT 11/22/2023 1:51 PM CDT Celestino Her.B.B.S. LAB BLOOD ADD-ON [facility] [address] [place] [address] [facility] [address] [place] [address] * (ABNORMAL) CBC with Differential, Blood (11/22/2023 8:09 AM CDT) Hemoglobin 13.9 11.6 - 15.0 g/dL 11/22/2023 9:31 AM CDT DTL Hematocrit 41.3 35.5 - 44.9 % 11/22/2023 9:31 AM CDT DTL Erythrocytes 4.50 3.92 - 5.13 x10(12)/L 11/22/2023 9:31 AM CDT DTL MCV 91.8 78.2 - 97.9 fL 11/22/2023 9:31 AM CDT DTL RBC Distrib Width 12.5 12.2 - 16.1 % 11/22/2023 9:31 AM CDT DTL Platelet Count 368 157 - 371 x10(9)/L 11/22/2023 9:31 AM CDT DTL Leukocytes 8.6 3.4 - 9.6 x10(9)/L 11/22/2023 9:31 AM CDT DTL Neutrophils 4.19 1.56 - 6.45 x10(9)/L 11/22/2023 9:31 AM CDT [facility] Lymphocytes 3.63(H) 0.95 - 3.07 x10(9)/L 11/22/2023 9:31 AM CDT DTL Monocytes 0.50 0.26 - 0.81 x10(9)/L 11/22/2023 9:31 AM CDT DTL Eosinophils 0.26 0.03 - 0.48 x10(9)/L 11/22/2023 9:31 AM CDT DTL Basophils 0.05 0.01 - 0.08 x10(9)/L 11/22/2023 9:31 AM CDT DTL Blood (Blood, Venous) 11/22/2023 8:09 AM CDT 11/22/2023 8:37 AM CDT Celestino JuarezB.S. LAB BLOOD ADD-ON Performing Organization Address City/[facility]/ZIP Co de Phone Number [facility] [address] [place] [address], [facility] [address] [place] [address] [facility] [address] [place] [address] * (ABNORMAL) CRP (C-Reactive Protein) (11/22/2023 8:09 AM CDT) Pathologist [facility] C-Reactive Protein (CRP), S 5.4(H) <5.0 mg/L 11/22/2023 9:16 AM CDT DTL Blood (Blood, Venous) 11/22/2023 8:09 AM CDT 11/22/2023 8:51 AM CDT Celestino JuarezB.S. LAB BLOOD ADD-ON Performing Organization Address City/[facility]/ZIP Co de Phone Number [facility] [address] [place], [place] [address] [address] [place] [address] * CT Sinuses without IV Contrast (11/21/2023 2:08 PM CDT) Anatomical Region Laterality Modality Head, Neuroradiology RST LOS , Neuroradiology ARZ LOS, Neuroradiology FLA LOS N/A Computed Tomography, Compute d Tomography Impressions 11/22/2023 8:28 AM CDT Markedly improved aeration of the paranasal sinuses since 07/02/2023. Tiny mucus retention cysts right maxillary sinus, otherwise the paranasal sinuses are now well-aerated and clear. The bilateral frontal sinus drainage pathways, maxillary infundibula, and sphenoethmoidal ostia are patent. Pneumatization superior to the right anterior ethmoidal artery notch. Left ken bullosa. Paradoxical curvature of both middle turbinates. Rightward deviation of the nasal septum with bony spurring. Mastoid air cells are well pneumatized and clear. Narrative 11/22/2023 8:28 AM CDT EXAM: CT SINUSES WITHOUT IV CONTRAST COMPARISON: CT sinus 07/02/2023. Procedure Note hO Whitten M.D. - 11/22/2023 EXAM: CT SINUSES WITHOUT IV CONTRAST COMPARISON: CT sinus 07/02/2023. IMPRESSION: Markedly improved aeration of the paranasal sinuses since 07/02/2023. Tinymucus retention cysts right maxillary sinus, otherwise the paranasalsinuses are now well-aerated and clear. The bilateral frontal sinusdrainage pathways, maxillary infundibula, and sphenoethmoidal ostia are patent. Pneumatization superiorto the right anterior ethmoidal artery notch. Left ken bullosa.Paradoxical curvature of both middle turbinates. Rightward deviation ofthe nasal septum with bony spurring. Mastoid air cells are well pneumatized and clear. Fifi Montoya M.D. IMG CT PROCEDURES * CT Chest without IV Contrast (11/21/2023 2:08 PM CDT) Anatomical Region Laterality Modality Chest, Thoracic RST LOS, Tho racic ARZ LOS, Thoracic FLA LOS N/A Computed Tomography, Compute d Tomography Impressions 11/22/2023 6:58 AM CDT 1. Few bilateral pulmonary nodules with 2 dominant nodules in the right middle lobe, one of which has decreased slightly in size. 2. Otherwise stable exam without evidence of diffuse interstitial lung disease or cystic lung disease. Narrative 11/22/2023 6:58 AM CDT EXAM: CT CHEST WITHOUT IV CONTRAST COMPARISON: PET exam of 06/18/2023 FINDINGS: There are 2 dominant nodules in the right middle lobe. The larger of these (3/293) has decreased from 17 x 12 mm to 14 x 11 mm since the prior exam. An additional dominant nodule (3/261) is stable at 14 x 10 mm. Additional smaller satellite nodules in the right middle lobe stable. Findings are suggestive of an inflammatory or postinflammatory process. Few additional tiny micronodules are also stable including a micronodule in the left lower lobe (3/300). Mild changes of mosaic attenuation in both lungs without significant air trapping on expiration views. Dependent atelectasis in the posterior lungs clears on prone images. No convincing evidence of diffuse fibrotic interstitial lung disease or cystic lung disease. No thoracic adenopathy. No pleural effusion. No parenchymal consolidation. Thoracolumbar curve with mild degenerative changes. Stable right thyroid nodule. Cholecystectomy. Procedure Note Sergey Sánchez M.D. - 11/22/2023 EXAM: CT CHEST WITHOUT IV CONTRAST COMPARISON: PET exam of 06/18/2023 FINDINGS: There are 2 dominant nodules in the right middle lobe. The larger of these(3/293) has decreased from 17 x 12 mm to 14 x 11 mm since the prior exam.An additional dominant nodule (3/261) is stable at 14 x 10 mm. Additionalsmaller satellite nodules in the right middle lobe stable. Findings are suggestive of an inflammatoryor postinflammatory process. Few additional tiny micronodules are alsostable including a micronodule in the left lower lobe (3/300). Mild changes of mosaic attenuation in both lungs without significant airtrapping on expiration views. Dependent atelectasis in the posterior lungsclears on prone images. No convincing evidence of diffuse fibroticinterstitial lung disease or cystic lung disease. No thoracic adenopathy. No pleural effusion. No parenchymal consolidation.Thoracolumbar curve with mild degenerative changes. Stable right thyroidnodule. Cholecystectomy. IMPRESSION: 1. Few bilateral pulmonary nodules with 2 dominant nodules in the rightmiddle lobe, one of which has decreased slightly in size. 2. Otherwise stable exam without evidence of diffuse interstitial lungdisease or cystic lung disease. Celestino PaulsonS. IMG CT PROCEDURES * Nasal Endoscopy-Otorhinolaryngology Image Exam (11/08/2023 9:15 AM CDT) Narrative [facility] - 11/08/2023 9:15 AM CDT This order has been created and auto-finalized to support the import of images acquired without order. The clinical documentation to support these images can be found on the encounter that produced images. Provider Not In System IMG NON RAD IMAGI NG PROCEDURES IIMS NA * (ABNORMAL) Lipid Panel (09/16/2015 11:30 AM CDT) Calculated LDL 104 <=129 MG[facility] [employer] Comment: 2014 National Lipid Association recommendations for LDL-C in adults ages 18 and up: Desirable <100 mg/dL Above desirable 100-129 mg/dL Borderline high 130-159 mg/dL High 160-189 mg/dL Very High 190 mg/dL 2014 National Lipid Association recommendations for LDL-C in children ages 2 to 17. Acceptable <110 mg/dL Borderline High 110-129mg/dL High 130 mg/dL LDL-C >190mg/dL: The markedly elevated LDL level is suggestive of a genetic condition such as familial hypercholesterolemia(FH) or familial defective apolipoprotein B-100 (FDB). Molecular genetic testing for FH and FDB is available through [facility]: FH/ADH Genetic Reflex Panel (test ADHP). Acquired (non-genetic) causes of markedly increased LDL cholesterol include cholestatic liver disease due to the presence of LpX. If a genetic form of hypercholesterolemia is suspected, family studies including biochemical testing for lipids (total cholesterol,triglycerides, LDL cholesterol and HDL cholesterol) are recommended. ??Please contact the laboratory at or the on-line test catalog at [employer] for information about how to order these tests or to speak with a genetic counselor. Further interpretation would require clinical information. Total Cholesterol/HDL Ratio 4.19 POWERCHART Cholesterol, Total 197 <=199 MGDL POWERCHART Comment: 2014 National Lipid Association recommendations for Total Cholesterol in adults ages 18 and up: Desirable <200 mg/dL Borderline high 200-239 mg/dL High 240 mg/dL 2014 National Lipid Association recommendations for Total Cholesterol in children ages 2 to 17. Acceptable <170 mg/dL Borderline High 170-199 mg/dL High 200 mg/dL HX HDL 47(L) >=50 MGDL POWERCHART Comment: 2014 National Lipid Association recommendations for HDL-C in adults ages 18 and up: Low <40 mg/dL (Men) Low <50 mg/dL (Women) 2014 National Lipid Association recommendations for HDL-C in children ages 2 to 17. Low <40 mg/dL Borderline Low 40-45 mg/dL Acceptable >45 mg/dL Triglycerides 230(H) <=149 MGDL POWERCHART Comment: 2014 National Lipid Association recommendations for Triglycerides in adults ages 18 and up: Normal <150 mg/dL Borderline High 150-199 mg/dL High 200-499 mg/dL Very High 500 mg/dL 2014 National Lipid Association recommendations for Triglycerides in children ages 2 to 9. Acceptable <75 mg/dL Borderline High 75-99 mg/dL High 100 mg/dL 2014 National Lipid Association recommendations for Triglycerides in children ages 10 to 17. Acceptable <90 mg/dL Borderline High 90-129 mg/dL High 130 mg/dL Trigs >400mg/dL: Triglycerides >400 mg/dL. Calculated LDL cholesterol is not valid. Non-HDL cholesterol may be used for risk assessment when triglycerides are >400mg/dL. HXLDL/HDL 2 POWERCHART Blood 09/16/2015 11:3 0 AM CDT Howie Montes Jr., M.D. LAB BLOOD ADD- ON POWERCHART from Last 3 Months or Most Recently Relevant to Health Maintenance Care Teams Php Software Engineer Relationship Specialty Start Date End Date Elsewhere, Pcp PCP - General Internal Medicine 06/28/23
--- OUTSIDE RECORDS SUMMARY | 2024-01-24 21:05 | XMS_ITS | Encounter Summary ---
Author Organization [facility] Address [address] [place] [address] Care Team Providers Care Environmental Laboratory Technician Name Role Phone Elsewhere, Pcp Primary Care Provider Unavailabl e Reason for Visit * Outpatient (Routine) - Closed Specialty Diagnoses / Procedures Referred By Peri gaytan Referred To Contact Pulmonary Medicine Celestino Hudson M.B.B.S. [address] [place] [phone] [facility] Referral ID Status Reason Start Date Expiration Date Visits Re quested Visits Authorized [id number] Closed 11/01/2023 05/02/2025 1 1 Encounter Details Date Type Department Care Team (Late st Contact Info) Description 11/22/2023 11:00 AM CDT Office Visit Division of Pulmonary Medicine in [place], [place] [address] [place] [phone] Krishan Jeffrey M.B.B.S. [address] [place] [phone] Lung Interstitial Disease (HCC) (Primary Dx) Social History Tobacco Use Types Packs/Day Years Used Date Smoking Tobacco: Never Smokeless Tobacco: Never Alcohol Use Standard Drinks/Week Comments No 0 (1 standard drink = 0.6 oz pur e alcohol) [facility] Utilities Answer Date Recorded In the past 12 months has th e electric, gas, oil, or water company [...] often do you attend chur ch or jain services? 1 to 4 times per year [...] Answer Date Recorded PHQ-2 Score 1 12/06/2019 [facility] of Occupat ional Health - Occupational Stress [...] your living situation today? I have a [facility] place to live 06/28/2023 Education Answer Date Recorded What is the highest level of school you have completed or the highest degree you have received? GED or equivalent Sex and Gender Information Value Date Recorded Sex Assigned at Female 06/28/2023 7:21 PM RN ENT Gender Identity Female 07/01/2019 7:57 PM RN ENT Sexual Orientation Straight 07/01/2019 7: 57 PM RN ENT documented as of this encounter Last Filed Vital Signs Vital Sign Reading Time Taken Comments Blood Pressure 152/102 11/22/2023 10:56 AM CDT Pulse 75 11/22/2023 10:56 AM CDT Temperature 36.9 ??C (98.4 ??F) 11/22/2023 10:56 AM C DT Respiratory Rate - - Oxygen Saturation 99% 11/22/2023 10:56 AM CDT Inhaled Oxygen Concentration - - Weight 76.7 kg (169 lb 1.5 oz) 11/22/2023 10:56 AM CDT Height 161.1 cm (5' 3.43) 11/22/2023 10:56 AM C DT Body Mass Index 29.55 11/22/2023 10:56 AM CDT documented in this encounter Progress Notes * Krishan Jeffrey M.B.B.S. - 11/22/2023 11:00 AM CDT SUBJECTIVE CHIEF COMPLAINT / REASON FOR VISIT Liv Evans is a 33 y.o. 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 HISTORY OF PRESENT ILLNESS This is a 33-year-old never-smoker who has a history of asthma as a child but lately has trouble with sinusitis, especially from 2021 or 2022, and she also was found to have some pulmonary nodules for which she underwent a CT-guided biopsy, and it showed necrotizing granulomatous inflammation. There was a concern that whether this could be histoplasmosis but the antibody came back as negative. 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 She did see ENT and they have suggested possible surgery. OBJECTIVE PHYSICAL EXAM Pulmonary Effort: Pulmonary effort is normal. Breath sounds: Normal breath sounds. ASSESSMENT / PLAN On today's examination there was nothing to suggest active vasculitis. CT sinuses is also improving. There was no active urinary sediment. Based on that I feel like that it would be good to just observe her. I am okay with the CT sinuses surgery if that is what is recommended. Return to clinic in 1 year with vasculitis 10 packs. Vasculitis documented in this encounter Plan of Treatment Upcoming Encounters Date Type Department Care Team (Latest Contact Info) Description 02/11/2024 4:20 PM CDT Appointment Department of Laboratory Medicine and Pathology, [facility], in [place] [address] [place] [phone] Julieta Brice M.D. [address] [place] [phone] 02/14/2024 12:49 PM CDT Hospital Encounter Post Anesthesia Care Unit in [address] [phone] Oh Camp M.D., M.S. [address] [place] [phone] 02/14/2024 12:49 PM CDT - 02/14/2024 3:46 PM CDT Surgery [facility] MAIN OR [address] [place] [phone] Oh Camp M.D., M.S. [address] [place] [phone] SEPTOPLASTY 02/22/2024 7:30 AM CDT Office Visit Department of Otorhinolaryngology in [address] [phone] Julieta Brice M.D. [address] [place] [phone] Scheduled Procedures Name Priority Associated Diagnoses Date/Ti me SEPTOPLASTY Deviation Nasal Septal 02/14/2024 12:49 PM CDT REDUCTION TURBINATE Deviation Nasal Septal 02/14/2024 12:49 PM CDT documented as of this encounter Results * (ABNORMAL) Histoplasma Antibody Complement Fixation and Immunodiffusion (12/06/2023 3:04 PM CDT) Histoplasma Yeast CompFix, S 1:32(A) Negative 12/09/2023 12:01 PM CDT [facility] Comment:REPORTABLE DISEASE Histoplasma Immunodiffusion, S Negative Negative 12/09/2023 12:01 PM CDT [facility] Blood (Blood, Venous) 12/06/2023 3:04 PM CDT 12/06/2023 8:14 PM CDT Krishan Triana LAB BLOOD ADD-ON [facility] [address] [place] [address] [facility] [address] [place] [address] [place] [address] documented in this encounter Visit Diagnoses Diagnosis Lung Interstitial Disease (HCC)- Primary Deviation Nasal Septal documented in this encounter Additional Health Concerns Assessment Noted Time PHQ-9 Depression Total Score: 5 12/06/19 20 10:06 AM CDT documented as of this encounter Care Teams Environmental Laboratory Technician Relationship Specialty Start Date End Date Elsewhere, Pcp PCP - General Internal Medicine 06/28/23 documented as of this encounter
--- OUTSIDE RECORDS SUMMARY | 2024-01-24 21:05 | XMS_ITS | Encounter Summary ---
Author Organization [facility] Address [address] [place] [address] Care Team Providers Care Cloth Designer Name Role Phone Elsewhere, Pcp Primary Care Provider Unavailabl e Reason for Referral * MRI/CAT/PET Scan (Routine) - Closed Specialty Diagnoses / Procedures Referred By Peri gaytan Referred To Contact Radiology Diagnoses Rhinosinusitis Chronic Procedures CT Sinuses without IV Contrast Fifi Montoya M.D. 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 [address] [place] [phone] [facility] Referral ID Status Reason Start Date Expiration Date Visits Re quested Visits Authorized [id number] Closed 11/01/2023 10/31/2024 1 1 Encounter Details Date Type Department Care Team (Latest Contact Info) Description 11/21/2023 1:23 PM CDT - 11/21/2023 11:59 PM CDT Hospital Encounter Department of Radiology, [facility], in [place], [place] [address] [place] [phone] Celestino Hudson M.B.B.S. 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 1 to 4 times per year 07/01/2019 Do you belong to any clubs o r organizations such as alevism groups, unions, fraternal or athletic groups, or [...] Answer Date Recorded PHQ-2 Score 1 12/06/2019 [facility] of Occupat ional Health - Occupational [...] Sex Assigned at Female 06/28/2023 7:21 PM LOG MANAGER Gender Identity Female 07/01/2019 7:57 PM LOG MANAGER Sexual Orientation Straight 07/01/2019 7: 57 PM LOG MANAGER documented as of this encounter Medications at Time of Discharge Medication Sig Dispensed Refills Start Date End Date acetaminophen (TYLENOL) 500 mg tablet Take 1,000 mg by mouth as needed. 01/26/2020 budesonide (Pulmicort) 0.5 mg/2 mL nebulizer solution Mix 1 ampule in sinus irrigation bottle and irrigate twice daily. 360 mL 3 08/23/2023 clindamycin (Cleocin) 300 mg capsule TAKE ONE CAPSULE BY MOUTH EVERY TWELVE HOURS* 11/30/2022 ibuprofen (ADVIL,MOTRIN) 600 mg tablet Take 600 mg by mouth as needed. 01/26/2020 afircgr-Sy-ligx-FA (VINATE ONE) 60 mg iron-1 mg per tablet Take 1 tablet by mouth daily. documented as of this encounter Plan of Treatment Upcoming Encounters Date Type Department Care Team (Latest Contact Info) Description 02/11/2024 4:20 PM CDT Appointment Department of Laboratory Medicine and Pathology, [facility], in [place] [address] [address] [place] [phone] Julieta Brice M.D. [address] [place] [phone] 02/14/2024 12:49 PM CDT Hospital Encounter Post Anesthesia Care Unit in [address] [phone] Oh Camp M.D., M.S. [address] [place] [phone] 02/14/2024 12:49 PM CDT - 02/14/2024 3:46 PM CDT Surgery [facility] MAIN OR [address] [place] [phone] Oh Camp M.D., M.S. [address] [place] [phone] SEPTOPLASTY 02/22/2024 7:30 AM CDT Office Visit Department of Otorhinolaryngology in [address] [phone] Julieta Brice M.D. 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 Procedure Note Oh Whitten M.D. - 11/22/2023 EXAM: CT SINUSES [...] cells are well pneumatized and clear. Fifi PASCUAL CT PROCEDURES * CT Chest without IV [...] interstitial lungdisease or cystic lung disease. 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
--- OUTSIDE RECORDS SUMMARY | 2024-01-24 21:05 | XMS_ITS | Encounter Summary ---
Author Organization [facility] Address [address] [place] [address] Care Team Providers Care Differential Tester Name Role Phone Elsewhere, Pcp Primary Care Provider Unavailabl e Reason for Referral * Outpatient (Routine) - Authorized Specialty Diagnoses / Procedures Referred By Peri gaytan Referred To Contact Otorhinolaryngology Julieta Brice M.D. [address] [place] [phone] [facility] Referral ID Status Reason Start Date Expiration Date V isits Requested Visits Authorized [id number] Authorized 12/08/2023 06/08/2025 1 1 Scheduling Instructions Please schedule at 7:30 a.m. at [facility] in the [facility] room with Dr. Brice on 02/21. Encounter Details Date Type Department Care Team (Late st Contact Info) Description 12/08/2023 Orders Only Department of Otorhinolaryngology in [place], [place] [address] [place] [phone] Julieta Brice M.D. [address] [place] [phone] Social History Tobacco Use Types Packs/Day Years Used Date Smoking Tobacco: Never Smokeless Tobacco: Never Alcohol Use Standard Drinks/Week Comments No 0 (1 standard drink = 0.6 oz pur e alcohol) [facility] Utilities Answer Date Recorded In the past 12 months has [employer], oil, or water [employer] threatened to shut off services in your [...] any clubs o r organizations such as islam groups, unions, fraternal or athletic groups, or [...] Answer Date Recorded PHQ-2 Score 1 12/06/2019 [facility] [place] of Occupat ional Health - Occupational Stress [...] your living situation today? I have a [facility] place to live 06/28/2023 Education Answer Date Recorded What is the highest level of school you have completed or the highest degree you have received? GED or equivalent Sex and Gender Information Value Date Recorded Sex Assigned at Female 06/28/2023 7:21 PM FINISH MILL OPERATOR Gender Identity Female 07/01/2019 7:57 PM FINISH MILL OPERATOR Sexual Orientation Straight 07/01/2019 7: 57 PM FINISH MILL OPERATOR documented as of this encounter Plan of Treatment Upcoming Encounters Date Type Department Care Team (Latest Contact Info) Description 02/11/2024 4:20 PM CDT Appointment Department of Laboratory Medicine and Pathology, [facility], in [place], [place] [address] [place] [phone] Julieta Brice M.D. [address] [place] [phone] 02/14/2024 12:49 PM CDT Hospital Encounter Post Anesthesia Care Unit in [address] [phone] Oh Camp M.D., M.S. [address] [place] [phone] 02/14/2024 12:49 PM CDT - 02/14/2024 3:46 PM CDT Surgery [facility] MAIN OR [address] [place] [phone] Oh Camp M.D., M.S. [address] [place] [phone] SEPTOPLASTY 02/22/2024 7:30 AM CDT Office Visit Department of Otorhinolaryngology in [address] [phone] Julieta Brice M.D. [address] [place] [phone] Scheduled Procedures Name Priority Associated Diagnoses Date/Ti me SEPTOPLASTY Deviation Nasal Septal 02/14/2024 12:49 PM CDT REDUCTION TURBINATE Deviation Nasal Septal 02/14/2024 12:49 PM CDT Scheduled Referrals Name Type Priority Associated Diagnoses Order Schedule Otorhinolaryngology Post Op (clinic) Outpatient Referral Routine Expected: 02/22/2024, Expires: 03/09/2025 documented as of this encounter Visit Diagnoses Not on filedocumented in this encounter Additional Health Concerns Assessment Noted Time PHQ-9 Depression Total Score: 5 12/06/19 20 10:06 AM CDT documented as of this encounter Care Teams Differential Tester Relationship Specialty Start Date End Date Elsewhere, Pcp PCP - General Internal Medicine 06/28/23 documented as of this encounter
--- OUTSIDE RECORDS SUMMARY | 2024-01-24 21:05 | XMS_ITS | Encounter Summary ---
Author Organization [facility] Address [address] [place] [address] Care Team Providers Care Greaser Operator Name Role Phone Elsewhere, Pcp Primary Care Provider Unavailabl e Encounter Details Date Type Department Care Team (Latest Contact Info) Description 11/08/2023 Clinical Communication Department of Otorhinolaryngology in [place], [place] [address] [place] [phone] Julieta Brice M.D. [address] [place] [phone] Social History Tobacco Use Types Packs/Day Years Used Date Smoking Tobacco: Never Smokeless Tobacco: Never Alcohol Use Standard Drinks/Week Comments No 0 (1 standard drink = 0.6 oz pur e alcohol) [facility] Utilities Answer Date Recorded In the past [address] [facility] electric, gas, oil, or water [employer] threatened to shut off services in your [...] often do you attend chur ch or mandaen services? 1 to 4 times per year 07/01/2019 Do you belong to any clubs o r organizations such as sikh groups, unions, fraternal or athletic groups, or [...] 1 12/06/2019 [facility] of Occupat ional Health - Occupational Stress [...] your living situation today? I have a [facility] place to live 06/28/2023 Education Answer Date Recorded What is the highest level of school you have completed or the highest degree you have received? GED or equivalent Sex and Gender Information Value Date Recorded Sex Assigned at Female 06/28/2023 7:21 PM SURVEY SUPERVISOR Gender Identity Female 07/01/2019 7:57 PM SURVEY SUPERVISOR Sexual Orientation Straight 07/01/2019 7: 57 PM SURVEY SUPERVISOR documented as of this encounter Plan of Treatment Upcoming Encounters Date Type Department Care Team (Latest Contact Info) Description 02/11/2024 4:20 PM CDT Appointment Department of Laboratory Medicine and Pathology, [facility] in [place], [place] 200 [place] [address] Julieta Brice M.D. [address] [place] [phone] 02/14/2024 12:49 PM CDT Hospital Encounter Post Anesthesia Care Unit in [place], [place] [address] [place] [phone] Oh Camp M.D., M.S. [address] [place] [phone] 02/14/2024 12:49 PM CDT - 02/14/2024 3:46 PM CDT Surgery [facility] MAIN OR [address] [place] [phone] Oh Camp M.D., M.S. [address] [place] [phone] SEPTOPLASTY 02/22/2024 7:30 AM CDT Office Visit Department of Otorhinolaryngology in [place], [place] [address] [place] [phone] Julieta Brice M.D. [address] [place] [phone] Scheduled Procedures Name Priority Associated Diagnoses Date/Ti me SEPTOPLASTY Deviation Nasal Septal 02/14/2024 12:49 PM CDT REDUCTION TURBINATE Deviation Nasal Septal 02/14/2024 12:49 PM CDT documented as of this encounter Visit Diagnoses Not on filedocumented in this encounter Additional Health Concerns Assessment Noted Time PHQ-9 Depression Total Score: 5 12/06/19 20 10:06 AM CDT documented as of this encounter Care Teams Greaser Operator Relationship Specialty Start Date End Date Elsewhere, Pcp PCP - General Internal Medicine 06/28/23 documented as of this encounter
--- OUTSIDE RECORDS SUMMARY | 2024-01-24 21:05 | XMS_ITS | Encounter Summary ---
Author Organization [facility] Address [address] [place] [phone] Care Team Providers Care Wearing Apparel Assembler Name Role Phone Elsewhere, Pcp Primary Care Provider Unavailabl e Encounter Details Date Type Department Care Team (Latest Contact Info) Description 12/06/2023 2:45 PM CDT - 12/06/2023 11:59 PM CDT Hospital Encounter Department of Laboratory Medicine and Pathology, [facility] in [place], [place] [address] [place] [phone] Krishan Jeffrey M.B.B.S. [address] [place] [phone] Lung Interstitial Disease (HCC) Discharge Disposition: Home or Self Care Social History Tobacco Use Types Packs/Day Years Used Date Smoking Tobacco: Never Smokeless Tobacco: Never Alcohol Use Standard Drinks/Week Comments No 0 (1 standard drink = 0.6 oz pur e alcohol) [facility] Utilities Answer Date Recorded In the past 12 months has [employer], oil, or water [employer] threatened to shut off services in your [...] How often do you attend chur or bahai services? 1 to 4 times per year 07/01/2019 Do you belong to any clubs o r organizations such as amish groups, unions, fraternal or athletic groups, or [...] Answer Date Recorded PHQ-2 Score 1 12/06/2019 [facility] of Occupat ional Health [...] your living situation today? I have a [facility] place to live 06/28/2023 Education Answer Date Recorded What is the highest level of school you have completed or the highest degree you have received? GED or equivalent Sex and Gender Information Value Date Recorded Sex Assigned at Female 06/28/2023 7:21 PM TRAINING COORDINATOR Gender Identity Female 07/01/2019 7:57 PM TRAINING COORDINATOR Sexual Orientation Straight 07/01/2019 7: 57 PM TRAINING COORDINATOR documented as of this encounter Medications at [...] 600 mg by mouth as needed. 01/26/2020 [id number] (VINATE ONE) 60 mg iron-1 mg per tablet Take 1 tablet by mouth daily. documented as of this encounter Plan of Treatment Upcoming Encounters Date Type Department Care Team (Latest Contact Info) Description 02/11/2024 4:20 PM CDT Appointment Department of Laboratory Medicine and Pathology, [facility], in [place], [place] [address] [place] [phone] Julieta Brice M.D. [address] [place] [phone] 02/14/2024 12:49 PM CDT Hospital Encounter Post Anesthesia Care Unit in [address] [phone] Oh Camp M.D., M.S. [address] [place] [phone] 02/14/2024 12:49 PM CDT - 02/14/2024 3:46 PM CDT Surgery [facility] MAIN OR [address] [place] [phone] Oh Camp M.D., M.S. [address] [place] [phone] SEPTOPLASTY 02/22/2024 7:30 AM CDT Office Visit Department of Otorhinolaryngology in [address] [phone] Julieta Brice M.D. [address] [place] [phone] Scheduled Procedures Name Priority Associated Diagnoses Date/Ti me SEPTOPLASTY Deviation Nasal Septal 02/14/2024 12:49 PM CDT REDUCTION TURBINATE Deviation Nasal Septal 02/14/2024 12:49 PM CDT documented as of this encounter Procedures Procedure Name Priority Date/Time Associated Diagnosis Comments HISTOPLASMA AB COMPFIX/IMMDIFF, S Routine 12/06/2023 3:04 PM CDT Lung Interstitial Disease (HCC) documented in this encounter Results * (ABNORMAL) Histoplasma Antibody Complement Fixation and Immunodiffusion (12/06/2023 3:04 PM CDT) Histoplasma Yeast CompFix, S 1:32(A) Negative 12/09/2023 12:01 PM CDT [facility] Comment:REPORTABLE DISEASE Histoplasma Immunodiffusion, S Negative Negative 12/09/2023 12:01 PM CDT [facility] Blood (Blood, Venous) 12/06/2023 3:04 PM CDT 12/06/2023 8:14 PM CDT Krishan Triana LAB BLOOD ADD-ON [facility] [address] [place] [address] [facility] [address] [place] [address] [place] [address] documented in this encounter Visit Diagnoses Diagnosis Lung Interstitial Disease (HCC) Deviation Nasal Septal- Primary Deviation Nasal Septal documented in this encounter Additional Health Concerns Assessment Noted Time PHQ-9 Depression Total Score: 5 12/06/19 20 10:06 AM CDT documented as of this encounter Care Teams Wearing Apparel Assembler Relationship Specialty Start Date End Date Elsewhere, Pcp PCP - General Internal Medicine 06/28/23 documented as of this encounter
--- OUTSIDE RECORDS SUMMARY | 2024-01-24 21:05 | XMS_ITS | Encounter Summary ---
Author Organization [facility] Address [address] [place] [phone] Care Team Providers Care Ground Worker Name Role Phone Elsewhere, Pcp Primary Care Provider Unavailabl e Encounter Details Date Type Department Care Team (Latest Contact Info) Description 11/22/2023 7:37 AM CDT - 11/22/2023 11:59 PM CDT Hospital Encounter Department of Laboratory Medicine and Pathology, [facility] in [place], [place] [address] [place] [phone] Celestino Hudson M.B.B.S. 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 1 to 4 times per year 07/01/2019 Do you belong to any clubs o r organizations such as yazidi groups, unions, fraternal or athletic groups, or [...] Answer Date Recorded PHQ-2 Score 1 12/06/2019 [facility] of Occupat ional Health - [...] your living situation today? I have a [facility] place to live 06/28/2023 Education Answer Date Recorded What is the highest level of school you have completed or the highest degree you have received? GED or equivalent Sex and Gender Information Value Date Recorded Sex Assigned at Female 06/28/2023 7:21 PM ARCHITECTURE FACULTY MEMBER Gender Identity Female 07/01/2019 7:57 PM ARCHITECTURE FACULTY MEMBER Sexual Orientation Straight 07/01/2019 7: 57 PM ARCHITECTURE FACULTY MEMBER documented as of this encounter Medications at [...] 600 mg by mouth as needed. 01/26/2020 [id number] (VINATE ONE) 60 mg iron-1 mg per tablet Take 1 tablet by mouth daily. documented as of this encounter Plan of Treatment Upcoming Encounters Date Type Department Care Team (Latest Contact Info) Description 02/11/2024 4:20 PM CDT Appointment Department of Laboratory Medicine and Pathology, [facility], in [place], [place] [address] [place] [phone] Julieta Brice M.D. [address] [place] [phone] 02/14/2024 12:49 PM CDT Hospital Encounter Post Anesthesia Care Unit in [address] [phone] Oh Camp M.D., M.S. [address] [place] [phone] 02/14/2024 12:49 PM CDT - 02/14/2024 3:46 PM CDT Surgery [facility] ROM[facility] MAIN OR [address] [place] [phone] Oh Camp M.D., M.S. [address] [place] [phone] SEPTOPLASTY 02/22/2024 7:30 AM CDT Office Visit Department of Otorhinolaryngology in [address] [phone] Julieta Brice M.D. [address] [place] [phone] Scheduled Procedures Name Priority Associated Diagnoses Date/Ti me SEPTOPLASTY Deviation Nasal Septal 02/14/2024 12:49 PM CDT REDUCTION TURBINATE Deviation Nasal Septal 02/14/2024 12:49 PM CDT documented as of this encounter Procedures Procedure Name Priority Date/Time Associated Diagnosis Comments DIPSTICK, U Routine 11/22/2023 8:20 AM CDT MICROSCOPIC MANUAL Routine 11/22/2023 8: 20 AM CDT PH, U Routine 11/22/2023 8:20 AM CDT OSMOLALITY, U Routine 11/22/2023 8:20 AM CDT URINALYSIS WITH MICROSCOPIC Routine 11/22/2023 8:20 AM CDT 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 LAB URINE ORDERAB LES [facility] 200 [place], [place] [phone] [place] [address] 200 [place] [address] * Osmolality, Urine (11/22/2023 8:20 AM CDT) [facility] Osmolality, U 610 150 - 1150 mOsm/kg 11/22/2023 10:21 AM CDT DTL Urine 11/22/2023 8:20 AM CDT 11/22/2023 9:05 AM CDT Celestino D Tristan M.B.B.S. LAB URINE ORDERAB LES [facility] [address] 200 [place] [address] * pH, Urine (11/22/2023 8:20 AM CDT) Pathologist [facility] pH, U 5.5 4.5 - 8.0 11/22/2023 10: 21 AM CDT DTL Urine 11/22/2023 8:20 AM CDT 11/22/2023 9:05 AM CDT Celestino PorrasB.B.S. LAB URINE ORDERAB LES Performing Organization Address City/[facility] Co de Phone Number [facility] 200 [place] [address], [facility] DTL [facility] 200 [place] [address] * Urinalysis, with Microscopic: Urine, Midstream (11/22/2023 [...] AM CDT 11/22/2023 9:05 AM CDT Celestino PorrasB.B.S. 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
--- OUTSIDE RECORDS SUMMARY | 2024-01-24 21:05 | XMS_ITS | Encounter Summary ---
Author Organization [facility] Address [address] [place] [address] Care Team Providers Care Architectural Administrative Assistant Name Role Phone Elsewhere, Pcp Primary Care Provider Unavailabl e Encounter Details Date Type Department Care Team (Latest Contact Info) Description 11/08/2023 4:05 PM CDT Ancillary Procedure Department of Otorhinolaryngology Social History Tobacco Use Types Packs/Day Years Used Date Smoking Tobacco: Never Smokeless Tobacco: Never Alcohol Use Standard Drinks/Week Comments No 0 (1 standard drink = 0.6 oz pur e alcohol) [facility] Utilities Answer Date Recorded In the [...] often do you attend chur ch or gnosticist services? 1 to 4 times per year 07/01/2019 Do you belong to any clubs o r organizations such as restorationism groups, unions, fraternal or athletic groups, or [...] Answer Date Recorded PHQ-2 Score 1 12/06/2019 [facility] of Occupat ional Health - Occupational Stress [...] your living situation today? I have a [facility] place to live 06/28/2023 Education Answer Date Recorded What is the highest level of school you have completed or the highest degree you have received? GED or equivalent Sex and Gender Information Value Date Recorded Sex Assigned at Female 06/28/2023 7:21 PM ELECTRIC ARC WELDER Gender Identity Female 07/01/2019 7:57 PM ELECTRIC ARC WELDER Sexual Orientation Straight 07/01/2019 7: 57 PM ELECTRIC ARC WELDER documented as of this encounter Plan of Treatment Upcoming Encounters Date Type Department Care Team (Latest Contact Info) Description 02/11/2024 4:20 PM CDT Appointment Department of Laboratory Medicine and Pathology, [facility], in [place], [place] [address] [place] [phone] Julieta Brice M.D. [address] [place] [phone] 02/14/2024 12:49 PM CDT Hospital Encounter Post Anesthesia Care Unit in [place], [place] [address] [place] [phone] Oh Camp M.D., M.S. [address] [place] [phone] 02/14/2024 12:49 PM CDT - 02/14/2024 3:46 PM CDT Surgery [facility] MAIN OR [address] [place] [phone] Oh Camp M.D., M.S. [address] [place] [phone] SEPTOPLASTY 02/22/2024 7:30 AM CDT Office Visit Department of Otorhinolaryngology in [place], [place] [address] [place] [phone] Julieta Brice M.D. [address] [place] [phone] Scheduled Procedures Name Priority Associated Diagnoses Date/Ti me SEPTOPLASTY Deviation Nasal Septal 02/14/2024 12:49 PM CDT REDUCTION TURBINATE Deviation Nasal Septal 02/14/2024 12:49 PM CDT documented as of this encounter Procedures Procedure Name Priority Date/Time Associated Diagnosis Comments OTORHINOLARYNGOLOGY IMAGE EXAM Routine 11/08/2023 9:15 AM CDT documented in this encounter Results * Nasal Endoscopy-Otorhinolaryngology Image Exam (11/08/2023 9:15 AM CDT) Narrative [facility] - 11/08/2023 9:15 AM CDT This order [...] documented as of this encounter Care Teams Architectural Administrative Assistant Relationship Specialty Start Date End Date Elsewhere, Pcp PCP - General Internal Medicine 06/28/23 documented as of this encounter
--- OUTSIDE RECORDS SUMMARY | 2024-01-24 21:05 | XMS_ITS | Referral Summary ---
Author Organization [facility] Address [address] [place] [address] Care Team Providers Care Parts Coordinator Name Role Phone Elsewhere, Pcp Primary Care Provider Unavailabl e Source Comments Patient records contain information from all sites at [facility]. For routine questions regarding patient records, call [phone] during business hours, M-F 8:00 AM - 5:00 PM Central Time. Record requests for emergency care only can be directed to [phone] at any time.[facility] Encounters Date Type Department Care Team Description 01/06/2024 Orders Only Division of Pulmonary Medicine in [place], [place] [address] [place] [address] Krishan Jeffrey M.B.B.S. 12/08/2023 Orders Only Department of Otorhinolaryngology in [place], [place] [address] [place] [address] Julieta Brice M.D. 12/06/2023 2:45 PM CDT - 12/06/2023 11:59 PM CDT Hospital Encounter Department of Laboratory Medicine and Pathology, [facility], in [place], [place] [address] [place] [address] Krishan Jeffrey M.B.B.S. Lung Interstitial Disease (HCC) Discharge Disposition: Home or Self Care 12/06/2023 4:00 PM CDT Office Visit Department of Otorhinolaryngology in [place], [place] [address] [place] [address] Julieta Brice M.D. Deviation Nasal Septal (Primary Dx); Obstruction Nasal 11/22/2023 7:37 AM CDT - 11/22/2023 11:59 PM CDT Hospital Encounter Department of Laboratory Medicine and Pathology, [facility] in [place], [place] [address] [place] [phone] Celestino Hudson M.B.B.S. 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 Lung Interstitial Disease (HCC) (Primary Dx) 11/21/2023 1:23 PM CDT - 11/21/2023 11:59 PM CDT Hospital Encounter Department of Radiology, [facility] in [address] [phone] Celestino Hudson M.B.B.S. 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 11/08/2023 4:05 PM CDT Ancillary Procedure Department of Otorhinolaryngology 11/08/2023 8:45 AM CDT Comprehensive Visit Department of Otorhinolaryngology in [address] [phone] Raciel Mcguire M.D. Lawlor, Skye K, M.D. Deviation Nasal Septal (Primary Dx); Rhinosinusitis Chronic; Obstruction Nasal 11/05/2023 Orders Only [facility] [address] [place] [address] Krishan Jeffrey M.B.B.S. 11/05/2023 Clinical Communication Division of Pulmonary Medicine in [place], [place] [address] [place] [address] Krishan Jeffrey M.B.B.S. 11/01/2023 Orders Only Division of Pulmonary Medicine in [place], [place] [address] [place] [address] Celestino Hudson M.B.B.S. 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 Pre-reg completed at [facility]. LMP:05/18/2019 EDC:02/22/2020 provider:Dr. Hampton FOB involved:, Jaxson Problem Noted Date Diagnosed Date [...] drink = 0.6 oz pur e alcohol) [facility] Mesuroities Answer Date Recorded In the past 12 months has e [employer], oil, or water [employer] threatened to shut off services in your [...] week 07/01/2019 How often do you attend [facility] or jewish services? 1 to 4 times per year 07/01/2019 Do you belong to any clubs o r organizations such as restoration groups, unions, fraternal or athletic groups, or [...] Answer Date Recorded PHQ-2 Score 1 12/06/2019 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 I have a [facility] place to live 06/28/2023 Education Answer Date Recorded What is the highest level of school you have completed or the highest degree you have received? GED or equivalent Sex and Gender Information Value Date Recorded Sex Assigned at Female 06/28/2023 7:21 PM FOOD SAFETY FIELD SPECIALIST Gender Identity Female 07/01/2019 7:57 PM FOOD SAFETY FIELD SPECIALIST Sexual Orientation Straight 07/01/2019 7: 57 PM FOOD SAFETY FIELD SPECIALIST Last Filed Vital Signs Vital Sign Reading Time Taken Comments Blood Pressure 152/102 11/22/2023 10:56 AM CDT Pulse 75 11/22/2023 10:56 AM CDT Temperature 36.9 ??C (98.4 ??F) 11/22/2023 10:56 AM C DT Respiratory Rate 16 05/19/2019 11:20 AM FOOD SAFETY FIELD SPECIALIST Oxygen Saturation 99% 11/22/2023 10:56 AM CDT [...] and Pathology, [facility], in [place], [place] 200 [place] [address] Julieta Brice M.D. 200 [place] [address] 02/14/2024 12:49 PM CDT Hospital Encounter Post Anesthesia Care Unit in [address] [phone] Oh Camp M.D., M.S. [address] [place] [phone] 02/14/2024 12:49 PM CDT - 02/14/2024 3:46 PM CDT Surgery RST ROMB MAIN OR [address] [place] [phone] Oh Camp M.D., M.S. [address] [place] [phone] SEPTOPLASTY 02/22/2024 7:30 AM CDT Office Visit Department of Otorhinolaryngology in [address] [phone] Julieta Brice M.D. 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) MICROSCOPIC MANUAL Routine 11/22/2023 8:20 AM CDT DIPSTICK, U Routine 11/22/2023 8:20 AM CDT OSMOLALITY, U Routine 11/22/2023 8:20 AM CDT PH, U Routine 11/22/2023 8:20 AM CDT URINALYSIS WITH MICROSCOPIC Routine 11/22/2023 8:20 AM CDT 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) ANCA VASCULITIS PANEL, S Routine 8:09 AM CDT 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) C-REACTIVE PROTEIN (CRP), S/P Routine 11/22/2023 8:09 AM CDT 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 [place] [address] [place] [address] * Pulmonary Function Tests (11/22/2023 8:51 AM CDT) FVC 3.08 L 11/22/2023 3:14 PM CDT [facility] SUITE FEV1 2.58 L 11/22/2023 3:14 PM CDT [facility] SUITE FEV1/FVC 83.78 % 11/22/2023 3:14 PM CDT [facility] SUITE OAP32-68% 2.87 L/s 11/22/2023 3:14 PM CDT [facility] PEF PRE 8.31 L/s 11/22/2023 3:14 PM CDT [facility] PIF PRE 5.72 L/s 11/22/2023 3:14 PM CDT [facility] FEF 50 % FIF 50 PRE 70.14 % 11/22/2023 3:14 PM CDT [facility] FET PRE 9.02 sec 11/22/2023 3:14 PM CDT [facility] DLCO 19.31 ml/(min*mm Hg) 11/22/2023 3:14 PM CDT [facility] SUITE DLCOc 19.03 ml/(min*mm Hg) 11/22/2023 3:14 PM CDT [facility] HB 13.90 g(Hb)/dL 11/22/2023 3:14 PM CDT [facility] SUITE VA 3.79 L 11/22/2023 3:14 PM CDT [facility] SUITE TLC 4.53 L 11/22/2023 3:14 PM CDT [facility] SUITE FRCPLETH PROVBASE 2.36 L 11/22/2023 3:14 PM CDT [facility] SUITE RV 1.45 L 11/22/2023 3:14 PM CDT [facility] SUITE RV % TLC PRE 31.99 % 11/22/2023 3:14 PM CDT [facility] 11/22/2023 8:51 AM CDT Impressions [facility] - 11/22/2023 3:14 PM CDT Normal spirometry, lung volumes and diffusion capacity. Compared to 06/29/2023, TLC has increased. Narrative Procedure Note Tay Vasquez M.B.B.S. - 11/22/2023 IMPRESSION: Normal spirometry, lung volumes and diffusion capacity. Compared to06/29/2023, TLC has increased. Celestino PorrasB.B.S. PFT ORDERABLES Performing Organization Address City/[facility]/ZIP Co de Phone Number [facility] NA * (ABNORMAL) Dipstick, Urine (11/22/2023 8:20 [...] CDT Celestino Her.B.B.S. LAB URINE ORDERAB LES [facility] [address] [place] [address], [place] DTL [facility] 200 [place] [address] * (ABNORMAL) Microscopic Manual (11/22/2023 8:20 AM [...] LAB URINE ORDERAB LES Performing Organization Address City/[facility]/ZIP Co de Phone Number [facility] 200 [place] [address] * pH, Urine (11/22/2023 8:20 AM CDT) pH, U 5.5 4.5 - 8.0 11/22/2023 10: 21 AM CDT DTL Urine 11/22/2023 8:20 AM CDT 11/22/2023 9:05 AM CDT Celestino D Tristan M.B.B.S. LAB URINE ORDERAB LES Performing Organization Address City/[facility]/ZIP Co de Phone Number [facility] [address] [place] [address], [facility] [place] [address] * Osmolality, Urine (11/22/2023 8:20 AM CDT) Osmolality, U 610 150 - 1150 mOsm/kg 11/22/2023 10:21 AM CDT DTL Urine 11/22/2023 8:20 AM CDT 11/22/2023 9:05 AM CDT Celestino Her.B.B.S. LAB URINE ORDERAB LES [facility] [address] [place] [address], [facility] 200 [place] [address] * Urinalysis, with Microscopic: Urine, Midstream (11/22/2023 [...] CDT Celestino Her.B.B.S. LAB URINE ORDERAB LES [facility] [address] [place] [address], [place] [facility] [address] [place] [address] * ANCA (Antineutrophil Cytoplasmic Antibodies) Vasculitis Panel (11/22/2023 8:09 AM CDT) Pathologist [facility] Myeloperoxidase Ab, S <0.2 <0.4 (Negative ) U 11/22/2023 3:33 PM CDT [facility] Proteinase 3 Ab (PR3), S <0.2 <0.4 (Negative ) U 11/22/2023 3:33 PM CDT [facility] Blood (Blood, Venous) 11/22/2023 8:09 AM CDT 11/22/2023 1:51 PM CDT Celestino Triana LAB BLOOD ADD-ON [facility] [address] [place] [address] [facility] [address] [place] [address] * (ABNORMAL) CBC with Differential, Blood (11/22/2023 8:09 AM CDT) [facility] Hemoglobin 13.9 11.6 - 15.0 g/dL 11/22/2023 [...] AM CDT 11/22/2023 8:37 AM CDT Celestino Her.B.B.S. LAB BLOOD ADD-ON [facility] [address] [place] [address] * (ABNORMAL) CRP (C-Reactive Protein) (11/22/2023 8:09 AM CDT) Pathologist [facility] C-Reactive Protein (CRP), S 5.4(H) <5.0 mg/L 11/22/2023 9:16 AM CDT DTL Blood (Blood, Venous) 11/22/2023 8:09 AM CDT 11/22/2023 8:51 AM CDT Celestino Her.B.B.S. LAB BLOOD ADD-ON [facility] 200 [place] [address] * CT Sinuses without IV Contrast (11/21/2023 [...] lung disease. Celestino Triana IMG CT PROCEDURES * Nasal Endoscopy-Otorhinolaryngology Image Exam (11/08/2023 9:15 AM CDT) Narrative II - 11/08/2023 9:15 AM CDT This order has been created and auto-finalized to support the import of images acquired without order. The clinical documentation to support these images can be found on the encounter that produced images. Provider Not In System IMG NON RAD IMAGI NG PROCEDURES [facility] NA * (ABNORMAL) Lipid Panel (09/16/2015 11:30 [...] for FH and FDB is available through [employer]: FH/ADH Genetic Reflex Panel (test ADHP). Acquired (non-genetic) causes of markedly increased LDL cholesterol include cholestatic liver disease due to the presence of LpX. If a genetic form of hypercholesterolemia is suspected, family studies including biochemical testing for lipids (total cholesterol,triglycerides, LDL cholesterol and HDL cholesterol) are recommended. ??Please contact the laboratory at or the on-line test catalog at [employer] for information about how to order these [...] Recently Relevant to Health Maintenance Care Teams Parts Coordinator Relationship Specialty Start Date End Date Elsewhere, Pcp PCP - General Internal Medicine 06/28/23
--- OUTSIDE RECORDS SUMMARY | 2024-01-24 21:05 | XMS_ITS | Encounter Summary ---
Author Organization [facility] Address [address] [place] [address] Care Team Providers Care Vocational Nurse Lvn Name Role Phone Elsewhere, Pcp Primary Care Provider Unavailabl e Encounter Details Date Type Department Care Team (Late st Contact Info) Description 01/06/2024 Orders Only Division of Pulmonary Medicine in [place], [place] [address] [place] [address] Krishan Jeffrey M.B.B.S. [address] [place] [address] Social History Tobacco Use Types Packs/Day Years Used Date Smoking Tobacco: Never Smokeless Tobacco: Never Alcohol Use Standard Drinks/Week Comments No 0 (1 standard drink = 0.6 oz pur e alcohol) [facility] Utilities Answer Date Recorded In the past 12 months has [facility] electric, gas, oil, or water [employer] threatened to shut off services in your [...] often do you attend chur ch or holiness services? 1 to 4 times per year 07/01/2019 Do you belong to any clubs o r organizations such as rastafari groups, unions, fraternal or athletic groups, or [...] your living situation today? I have a [facility] place to live 06/28/2023 Education Answer Date Recorded What is the highest level of school you have completed or the highest degree you have received? GED or equivalent Sex and Gender Information Value Date Recorded Sex Assigned at Female 06/28/2023 7:21 PM ADVANCED MANAGER Gender Identity Female 07/01/2019 7:57 PM ADVANCED MANAGER Sexual Orientation Straight 07/01/2019 7: 57 PM ADVANCED MANAGER documented as of this encounter Plan of Treatment Upcoming Encounters Date Type Department Care Team (Latest Contact Info) Description 02/11/2024 4:20 PM CDT Appointment Department of Laboratory Medicine and Pathology, [facility], in [place], [place] [address] [place] [address] Julieta Brice M.D. 200 [place] [address] 02/14/2024 12:49 PM CDT Hospital Encounter Post Anesthesia Care Unit in [place], [place] [address] [place] [phone] Oh Camp M.D., M.S. [address] [place] [phone] 02/14/2024 12:49 PM CDT - 02/14/2024 3:46 PM CDT Surgery RST ROMB MAIN OR [address] [place] [phone] Oh Camp M.D., M.S. [address] [place] [phone] SEPTOPLASTY 02/22/2024 7:30 AM CDT Office Visit Department of Otorhinolaryngology in [place], [place] [address] [place] [phone] Julieta Brice M.D. [address] [place] [phone] Scheduled Procedures Name Priority Associated Diagnoses Date/Ti me SEPTOPLASTY Deviation Nasal Septal 02/14/2024 12:49 PM CDT REDUCTION TURBINATE Deviation Nasal Septal 02/14/2024 12:49 PM CDT documented as of this encounter Visit Diagnoses Not on filedocumented in this encounter Additional Health Concerns Assessment Noted Time PHQ-9 Depression Total Score: 5 12/06/19 20 10:06 AM CDT documented as of this encounter Care Teams Vocational Nurse Lvn Relationship Specialty Start Date End Date Elsewhere, Pcp PCP - General Internal Medicine 06/28/23 documented as of this encounter
--- OUTSIDE RECORDS SUMMARY | 2024-01-24 21:05 | XMS_ITS | Encounter Summary ---
Author Organization [facility] Address [address] [place] [address] Care Team Providers Care Endless Steamer Tender Name Role Phone Elsewhere, Pcp Primary Care Provider Unavailabl e Reason for Visit * Outpatient (Routine) - Closed Specialty Diagnoses / Procedures Referred By Peri gaytan Referred To Contact Otorhinolaryngology LindsayFifi michael M.D. Wallerius, Katherine P, M.D. [address] [place] [phone] Referral ID Status Reason Start Date Expiration Date Visits Re quested Visits Authorized [id number] Closed 11/08/2023 05/09/2025 1 1 Encounter Details Date Type Department Care Team (Latest Contact Info) Description 12/06/2023 4:00 PM CDT Office Visit Department of Otorhinolaryngology in [place], [place] [address] [place] [phone] Julieta Brice M.D. [address] [place] [phone] Deviation Nasal Septal (Primary Dx); Obstruction Nasal Social History Tobacco Use Types Packs/Day Years Used Date Smoking Tobacco: Never Smokeless Tobacco: Never Alcohol Use Standard Drinks/Week Comments No 0 (1 standard drink = 0.6 oz pur e alcohol) [facility] Utilities Answer Date Recorded In the past [...] How often do you attend chur or latter day services? 1 to 4 times per year 07/01/2019 Do you belong to any clubs o r organizations such as episcopal groups, unions, fraternal or athletic groups, or [...] Answer Date Recorded PHQ-2 Score 1 12/06/2019 [facility] of Occupat ional Health - Occupational Stress [...] your living situation today? I have a [facility] place to live 06/28/2023 Education Answer Date Recorded What is the highest level of school you have completed or the highest degree you have received? GED or equivalent Sex and Gender Information Value Date Recorded Sex Assigned at Female 06/28/2023 7:21 PM CORPORATE COUNSELOR Gender Identity Female 07/01/2019 7:57 PM CORPORATE COUNSELOR Sexual Orientation Straight 07/01/2019 7: 57 PM CORPORATE COUNSELOR documented as of this encounter Progress Notes * Julieta Brice M.D. - 12/06/2023 4:00 PM CDT Images from the original note were not included. SUBJECTIVE CHIEF COMPLAINT / REASON FOR VISIT Liv Evans is a 33 y.o. female who presents for evaluation of sinusitis and nasal obstruction. A architectural designer was present for the visit. HISTORY OF PRESENT ILLNESS Previous sinus surgery: No Allergic Rhinitis: Yes Asthma: Yes childhood history, no problems as an adult Aspirin Sensitivity: No Ms. Evans is a 33 y.o. female was referred for evaluation of nasal obstruction and CRS. She was previously evaluated by Dr. Montoya on November 08, 2023. She also saw Maxwell Sanchez APRN on July 16, 2023 and was started on budesonide rinses. Her recent CT on November 21, 2023 shows significant improvement in her paranasal sinus disease compared to CT sinus from July 02, 2023. She is tolerating the budesonide rinses well. She continues to be bothered by right-sided nasal obstruction. She does report headaches as well. Social History Tobacco Use Smoking status: Never Smokeless tobacco: Never OBJECTIVE PHYSICAL EXAM Constitutional: Appears alert and well Otoscopic: Patient is deaf Nose: Intranasal: Nasal Septum: Right: septal deviation present She is significant deviation of her nose to the left. There is some mild pinching of the internal nasal valve and external nasal valve on the right greater than left. No significant valve collapse oninspiration. She has a septal deviation to the right with a large spur. She has moderately enlargedinferior turbinates. No anterior rhinorrhea or epistaxis. Oral Cavity/Oropharynx: Normal oral cavity No drainage from the nasopharynx. Eyes: Pupils are equal, round, and reactive to light Cardiovascular: Upper extremities are well perfused Pulmonary/Chest: Respirations have grossly normal rate and effort Neurological: She is alert Skin: Skin is normal temperature Psychiatric: Affect appears appropriate Imaging: Sinus CT 11/21/2023 ASSESSMENT / PLAN #1 Nodules Pulmonary Multiple #2 Congestion Sinus #3 Drip Post Nasal It was a pleasure to meet Mrs. Evans in clinic today. She had significant improvement in her sinusdisease comparing CT sinuses from June to November following initiation of budesonide rinses. She continues to experience nasal obstruction. We reviewed mucosal and structural components of nasal obstruction. We also discussed the impact of the nasal cycle and that the two sides of the nose will never breathe equally. She as address the mucosal component of nasal obstruction with greater than 12 weeks of budesonide rinses. We reviewed that her causes of structural nasal obstruction include right septal deviation and bilateral inferior turbinate hypertrophy. Surgery to address these would consist of: Endonasal septoplasty Bilateral inferior turbinate reduction and outfracture. The nasal obstruction cannot be fixed with a septoplasty alone. Surgery would be performed under general anesthesia on an outpatient basis. We reviewed the recovery process and expectations. PWA was submitted. I will reach out to the patient to offer surgical dates and look forward to hearing back from her. She will reach out with any questions in the meantime. She will not require a SHIVANI prior tosurgery. documented in this encounter Plan of Treatment Upcoming Encounters Date Type Department Care Team (Latest Contact Info) Description 02/11/2024 4:20 PM CDT Appointment Department of Laboratory Medicine and Pathology, [facility], in [place], [place] [address] [place] [phone] Julieta Brice M.D. [address] [place] [phone] 02/14/2024 12:49 PM CDT Hospital Encounter Post Anesthesia Care Unit in [address] [phone] Oh Camp M.D., M.S. [address] [place] [phone] 02/14/2024 12:49 PM CDT - 02/14/2024 3:46 PM CDT Surgery RST ROMB MAIN OR [address] [place] [phone] Oh Camp M.D., M.S. [address] [place] [phone] SEPTOPLASTY 02/22/2024 7:30 AM CDT Office Visit Department of Otorhinolaryngology in [address] [place] [phone] Julieta Brice M.D. [address] [place] [phone] Scheduled Orders Name Type Priority Associated Diagnoses Orde r Schedule Hemoglobin A1c Lab Routine Deviation Nasal Septal 1 Occurrences starting 12/06/2023 until 03/07/2025 Scheduled Procedures Name Priority Associated Diagnoses Date/Ti me SEPTOPLASTY Deviation Nasal Septal 02/14/2024 12:49 PM CDT REDUCTION TURBINATE Deviation Nasal Septal 02/14/2024 12:49 PM CDT documented as of this encounter Visit Diagnoses Diagnosis Deviation Nasal Septal- Primary Obstruction Nasal Deviation Nasal Septal- Primary Deviation Nasal Septal documented in this encounter Additional Health Concerns Assessment Noted Time PHQ-9 Depression Total Score: 5 12/06/19 20 10:06 AM CDT documented as of this encounter Care Teams Endless Steamer Tender Relationship Specialty Start Date End Date Elsewhere, Pcp PCP - General Internal Medicine 06/28/23 documented as of this encounter
--- OUTSIDE RECORDS SUMMARY | 2024-01-24 21:05 | XMS_ITS ---
Author Organization [facility] Address [address] [place] [address] Care Team Providers Care Client Integration Manager Name Role Phone Unavailable Unavailable Unavailable Surgery Details Not on file Complications Check Surgery Details section. Procedure Estimated Blood Loss Check Surgery Details section. Procedure Findings Check Surgery Details section. Procedure Specimens Taken Check Surgery Details section.
--- OUTSIDE RECORDS SUMMARY | 2024-01-24 21:05 | XMS_ITS | Encounter Summary ---
Author Organization [facility] Address [address] [place] [address] Care Team Providers Care Wastewater Project Manager Name Role Phone Elsewhere, Pcp Primary Care Provider Unavailabl e Encounter Details Date Type Department Care Team (Latest Contact Info) Description 11/22/2023 7:36 AM CDT Hospital Encounter Department of Laboratory Medicine and Pathology, [facility], in [place], [place] [address] [place] [address] Celestino Hudson M.B.B.S. 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 1 to 4 times [...] Answer Date Recorded PHQ-2 Score 1 12/06/2019 [facility] of Occupat ional Health - Occupational Stress [...] Answer Date Recorded Employment status Unemployed/not in [employer] paid workforce and NOT seeking employment 06/28/2023 Housing Stability Answer Date Recorded What is your living situation today? I have a [facility] place to live 06/28/2023 Education Answer Date Recorded What is the highest level of school you have completed or the highest degree you have received? GED or equivalent Sex and Gender Information Value Date Recorded Sex Assigned at Female 06/28/2023 7:21 PM PLANING MACHINE OPERATOR Gender Identity Female 07/01/2019 7:57 PM PLANING MACHINE OPERATOR Sexual Orientation Straight 07/01/2019 7: 57 PM PLANING MACHINE OPERATOR documented as of this encounter Medications [...] 600 mg by mouth as needed. 01/26/2020 [id number] (VINATE ONE) 60 mg iron-1 mg per tablet Take 1 tablet by mouth daily. documented as of this encounter Plan of Treatment Upcoming Encounters Date Type Department Care Team (Latest Contact Info) Description 02/11/2024 4:20 PM CDT Appointment Department of Laboratory Medicine and Pathology, [facility], in [place], [place] [address] [place] [phone] Julieta Brice M.D. [address] [place] [phone] 02/14/2024 12:49 PM CDT Hospital Encounter Post Anesthesia Care Unit in [address] [phone] Oh Camp M.D., M.S. [address] [place] [phone] 02/14/2024 12:49 PM CDT - 02/14/2024 3:46 PM CDT Surgery RST ROMB MAIN OR [address] [place] [phone] Oh Camp M.D., M.S. [address] [place] [phone] SEPTOPLASTY 02/22/2024 7:30 AM CDT Office Visit Department of Otorhinolaryngology in [address] [phone] Julieta Brice M.D. 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 LAB BLOOD ADD-ON [facility] [address] [place] [address] [facility] [address] [place] [address] * (ABNORMAL) CRP (C-Reactive Protein) (11/22/2023 8:09 AM CDT) C-Reactive Protein (CRP), S 5.4(H) <5.0 mg/L 11/22/2023 9:16 AM CDT DT Blood (Blood, Venous) 11/22/2023 8:09 AM CDT 11/22/2023 8:51 AM CDT Celestino Hudson M.B.B.S. 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
--- OUTSIDE RECORDS SUMMARY | 2024-01-24 21:05 | XMS_ITS | Encounter Summary ---
Author Organization [facility] Address [address] [place] [address] Care Team Providers Care Plastic Surgery Technician Name Role Phone Elsewhere, Pcp Primary Care Provider Unavailabl e Reason for Referral * Outpatient (Routine) - Closed Specialty Diagnoses / Procedures Referred By Peri gaytan Referred To Contact Otorhinolaryngology Fifi Montoya M.D. Wallerius, Katherine P, M.D. [address] [place] [phone] Referral ID Status Reason Start Date Expiration Date Visits Re quested Visits Authorized [id number] Closed 11/08/2023 05/09/2025 [address] sinus, ok for video visit * MRI/CAT/PET Scan (Routine) - Closed Specialty Diagnoses / Procedures Referred By Peri t Referred To Contact Radiology Diagnoses Rhinosinusitis Chronic Procedures CT Sinuses without IV Contrast Fifi Montoya M.D. [facility] Referral ID Status Reason Start Date Expiration Date Visits Re quested Visits Authorized [id number] Closed 11/08/2023 11/07/2024 1 1 Reason for Visit * Outpatient (Routine) - Closed Specialty Diagnoses / Procedures Referred By Peri t Referred To Contact Otorhinolaryngology Diagnoses Rhinosinusitis Chronic Maxwell Sanchez APRN, C.N.P., M.S.N. [address] [place] [phone] [facility] Referral ID Status Reason Start Date Expiration Date Visits Re quested Visits Authorized [id number] Closed 09/29/2023 03/30/2025 1 1 Encounter Details Date Type Department Care Team (Latest Contact Info) Description 11/08/2023 8:45 AM CDT Comprehensive Visit Department of Otorhinolaryngology in [place], [place] [address] [place] [address] Raciel Mcguire M.D. [address] [place] [address] Fifi Montoya M.D. Deviation Nasal Septal (Primary Dx); Rhinosinusitis Chronic; Obstruction Nasal Social History Tobacco Use Types Packs/Day Years Used Date Smoking Tobacco: Never Smokeless Tobacco: Never Alcohol Use Standard Drinks/Week Comments No 0 (1 standard drink = 0.6 oz pur e alcohol) [facility] Utilities Answer Date Recorded In the past 12 months has [employer], gas, oil, or water [employer] threatened to shut off services in your [...] week 07/01/2019 How often do you attend [facility] or taoist services? 1 to 4 times per year 07/01/2019 Do you belong to any clubs o r organizations such as roman catholic groups, unions, fraternal or athletic groups, or [...] Answer Date Recorded PHQ-2 Score 1 12/06/2019 [facility] of Occupat ional Health - [...] Answer Date Recorded Employment status Unemployed/not in [employer] paid workforce and NOT seeking employment 06/28/2023 Housing Stability Answer Date Recorded What is your living situation today? I have a [facility] place to live 06/28/2023 Education Answer Date Recorded What is the highest level of school you have completed or the highest degree you have received? GED or equivalent Sex and Gender Information Value Date Recorded Sex Assigned at Female 06/28/2023 7:21 PM DRY HOUSE WORKER Gender Identity Female 07/01/2019 7:57 PM DRY HOUSE WORKER Sexual Orientation Straight 07/01/2019 7: 57 PM DRY HOUSE WORKER documented as of this encounter Consult Notes * Fifi Montoya M.D. - 11/08/2023 8:45 AM CDT Images from the original note were not included. SUBJECTIVE CHIEF COMPLAINT / REASON FOR VISIT Liv Evans is a 33 y.o. female who presents for evaluation of sinusitis and nasal obstruction HISTORY OF PRESENT ILLNESS Previous sinus surgery: No Allergic Rhinitis:Yes nothing daily allergy sinus if needed Asthma: Yes childhood history, no problems as an adult Aspirin Sensitivity:No Ms. Evans is a 33 y.o. female who presents to my clinic today for evaluation of nasal obstruction,CRS. 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 There was concern for possible Anca negative vasculitis and she was referred to our team for evaluation of this. She saw Maxwell earlier this spring for her sinuses and was started on budesonide nasal saline irrigations. Despite this she continues to have symptoms. She is mostly bothered by right-sided nasal obstruction. She has a sensation of air trapping as well. She does get occasional facial pain and pressure and describes a warm sensation in her cheeks. Describes decreased sense of smell. Occasionally will get nasal drainage but this is not frequent for her. She does report headaches as well. She feels as though her symptoms have not significantly improved despite medical therapy. Pulmonology have also been interest in the possibility of a biopsy considering the potential diagnosis of Anca negative vasculitis. The patient's worst symptoms are Nasal blockage, Cough, Facial pain/pressure, Lack of a good night's sleep, Reduced productivity, Frustrated/restless/irritable, Sad and the total SNOT-22 score is 49. Of note, patient is deaf and and a project manager/design manager was used for the visit. Social History Tobacco Use Smoking status: Never [...] endoscopywas performed using a 0 degree endoscope. She is significant septal deviation to the right which makes view of the middle meatus challenging although there was no obvious polypoid tissue or drainage in the middle meatus on the right. On the left much more room due to the septal deviation and she has no mass or lesion in the middle meatus no purulent nasal drainage no polyps. She does have moderately enlarged turbinates bilaterally. Right Side Left Side Polyp Absent = 0 Absent = 0 Edema Severe/polypoid = 2 Mild/moderate = 1 Discharge Absent = 1 Thin and clear = 1 Scarring Absent = 0 Absent = 0 Crusting Absent = 0 Absent = [address] 07/02/2023 ASSESSMENT / PLAN #1 Nodules Pulmonary Multiple #2 Congestion Sinus #3 Drip Post Nasal It was a pleasure to meet Mrs. Evans in clinic today. She is persistent difficulties with a right-sided nasal obstruction and symptoms that seemed consistent with chronic sinusitis. Her CT scan looks more acute in pathology with regards to his sinus disease so I did discuss with her the possibility of repeating a CT scan to look for ongoing persistent sinus inflammation. She was agreeable to this. If he does have persistent evidence of chronic sinusitis despite medical therapy we discussed therole of endoscopic sinus surgery in treatment of the sinus disease and for medical application. Gregg has nasal obstruction which is a predominant issue for her on the right side. We discussed that her septum has a large spur deviation of this side which is almost certainly contributing to her nasal obstruction. She also has moderately enlarged turbinates. In this setting we discussed the roleof the at a nasal septoplasty and inferior turbinate reduction. We discussed the role to improve her nasal breathing as result of this. We discussed that this would allow for better medical therapy as well. As a starting point we will proceed with a CT scan of her sinuses. I discussed that I will be leaving [place] and as such I will set up a follow up visit for her to meet with 1 of my colleagues to discuss the role of surgical intervention which would likely include septoplasty with bilateral inferior turbinate reduction plus or minus endoscopic sinus surgery depending the results of the CT. Additionally per the note from pulmonology she may benefit from a biopsy of her nasal mucosa during surgery to further assess for Anca negative vasculitis. She has not have gross evidence of vasculitis on her endonasal exam today's this maybe somewhat challenging are limited in usefulness. Plan: - CT sinuses - 2 week follow-up with chief to discuss surgery MD Fifi Sandoval M.D. documented in this encounter Plan of Treatment Upcoming Encounters Date Type Department Care Team (Latest Contact Info) Description 02/11/2024 4:20 PM CDT Appointment Department of Laboratory Medicine and Pathology, [facility], in [place] [address] [address] [place] [address] Julieta Brice M.D. [address] [place] [phone] 02/14/2024 12:49 PM CDT Hospital Encounter Post Anesthesia Care Unit in [address] [phone] Oh Camp M.D., M.S. [address] [place] [phone] 02/14/2024 12:49 PM CDT - 02/14/2024 3:46 PM CDT Surgery RST ROMB MAIN OR [address] [place] [phone] Oh Camp M.D., M.S. [address] [place] [phone] SEPTOPLASTY 02/22/2024 7:30 AM CDT Office Visit Department of Otorhinolaryngology in [address] [phone] Julieta Brice M.D. [address] [place] [phone] Scheduled Procedures Name Priority Associated Diagnoses Date/Ti me SEPTOPLASTY Deviation Nasal Septal 02/14/2024 12:49 PM CDT REDUCTION TURBINATE Deviation Nasal Septal 02/14/2024 12:49 PM CDT Scheduled Referrals Name Type Priority Associated Diagnoses Order Schedule Otorhinolaryngology office visit (clinic) Outpatient Referral Routine Expected: 11/22/2023, Expires: 02/07/2025 documented as of this encounter Results * [...] pneumatized and clear. 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
--- OUTSIDE RECORDS SUMMARY | 2024-01-24 21:06 | XMS_ITS | Continuity of Care Document ---
Author Organization [facility] Address [address] [place] [address] Phone Care Team Providers Care Camera Engineer Name Role Phone Evangelina Cedillo Unavailable Unavailable Advance Directives Directive Yes / No Effective Date File Name No Information Encounters Encounter Description Practice Location Reason(s) For Visit Diagnoses Date Provider Providers Copied on Encounter [facility], [address], [place], [place], [id number], [place] tel:[phone] [facility] No Information Isaias Hutchinson. [facility], [address] [place] [address], [place], [place], [id number], [place]. tel:[phone] Referring Provider: Sergio Her, [address], [place], [address]. tel:[phone] Family History Family Member Type Diagnosis Age [...]
--- OUTSIDE RECORDS SUMMARY | 2024-01-24 21:06 | XMS_ITS | Encounter Summary ---
Author Organization [facility] Address [address] [place] [address] Care Team Providers Care Nonprofit Director Name Role Phone Elsewhere, Pcp Primary Care Provider Unavailabl e Encounter Details Date Type Department Care Team (Late st Contact Info) Description 11/05/2023 Clinical Communication Division of Pulmonary Medicine in [place], [place] [address] [place] [phone] Krishan Jeffrey M.B.B.S. [address] [place] [address] Social History Tobacco Use Types Packs/Day Years Used Date Smoking Tobacco: Never Smokeless Tobacco: Never Alcohol Use Standard Drinks/Week Comments No 0 (1 standard drink = 0.6 oz pur e alcohol) [facility] Utilities Answer Date Recorded In the past 12 months has [facility] electric, gas, oil, or water [employer] threatened to shut off services in your [...] often do you attend chur ch or yazidi services? 1 to 4 times per year 07/01/2019 Do you belong to any clubs o r organizations such as christianity groups, unions, fraternal or athletic groups, or [...] Answer Date Recorded PHQ-2 Score 1 12/06/2019 [facility] Occupat ional Health - [...] situation today? I have a [facility] place to live 06/28/2023 Education Answer Date Recorded What is the highest level of school you have completed or the highest degree you have received? GED or equivalent Sex and Gender Information Value Date Recorded Sex Assigned at Female 06/28/2023 7:21 PM IOS DEVELOPER Gender Identity Female 07/01/2019 7:57 PM IOS DEVELOPER Sexual Orientation Straight 07/01/2019 7: 57 PM IOS DEVELOPER documented as of this encounter Plan of Treatment Upcoming Encounters Date Type Department Care Team (Latest Contact Info) Description 02/11/2024 4:20 PM CDT Appointment Department of Laboratory Medicine and Pathology, [facility], in [place], [place] 200 [place] [address] Julieta Brcie M.D. 200 [place] [address] 02/14/2024 12:49 PM CDT Hospital Encounter Post Anesthesia Care Unit in [place], [place] [address] [place] [phone] Oh Camp M.D., M.S. [address] [place] [phone] 02/14/2024 12:49 PM CDT - 02/14/2024 3:46 PM CDT Surgery RST ROMB MAIN OR [address] [place] [phone] Oh Camp M.D., M.S. [address] [place] [phone] SEPTOPLASTY 02/22/2024 7:30 AM CDT Office Visit Department of Otorhinolaryngology in [place], [place] [address] [place] [phone] Julieta Brice M.D. [address] [place] [phone] Scheduled Procedures Name Priority Associated Diagnoses Date/Ti me SEPTOPLASTY Deviation Nasal Septal 02/14/2024 12:49 PM CDT REDUCTION TURBINATE Deviation Nasal Septal 02/14/2024 12:49 PM CDT documented as of this encounter Visit Diagnoses Not on filedocumented in this encounter Additional Health Concerns Assessment Noted Time PHQ-9 Depression Total Score: 5 12/06/19 20 10:06 AM CDT documented as of this encounter Care Teams Nonprofit Director Relationship Specialty Start Date End Date Elsewhere, Pcp PCP - General Internal Medicine 06/28/23 documented as of this encounter
--- OUTSIDE RECORDS SUMMARY | 2024-01-24 21:06 | XMS_ITS | Clinical Summary ---
Author Organization [facility] Address [address] [place] [address] Phone Care Team Providers Care Cell Operation Supervisor Name Role Phone Brinda Cordero MD Primary Care Provider [phone] Allergies Active Allergy Reactions Criticality Noted Date Comments Latex Itching 01/04/2008 Pt reports a little tightness with breathing and itching Penicillins Hives 01/04/2008 Sulfamethoxazole-Trimethopr im 06/04/2008 Medications No known medications Active Problems Problem Noted Date Diagnosed Date Gastritis 03/15/2023 H/O: premature delivery 04/24/2021 Overview (03/15/2023): PTB x2 Gestational diabetes mellitus 04/23/2021 Essential hypertension 08/28/2019 Scoliosis of lumbar spine 12/16/2017 Back pain 12/16/2017 Fatty liver 01/13/2017 Overview (03/15/2023): noted on ULTRASOUND 12/2016 Neck pain 12/24/2016 Occipital headache 07/14/2016 Elevated erythrocyte sedimentation rate 07/14/19 17 Polycystic ovary syndrome 09/30/2015 Hematuria 06/06/2014 Overview (03/15/2023): Renal ULTRASOUND normal CT scan normal Cysto normal. 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 Environmental allergy [...] Comments Blood Pressure 124/84 04/27/2023 11:01 AM MAGISTERIAL DISTRICT JUDGE Pulse 88 04/27/2023 11:01 AM MAGISTERIAL DISTRICT JUDGE Temperature 36.4 ??C (97.6 ??F) 04/27/2023 11:[address] Respiratory Rate 16 03/16/2023 9:33 AM CDT Oxygen Saturation 98% 03/16/2023 9:33 AM CDT Inhaled Oxygen Concentration - - Weight 77.3 kg (170 lb 6.4 oz) 04/27/2023 11:01 AM MAGISTERIAL DISTRICT JUDGE Height 161.3 cm (5' 3.5) 04/27/2023 11:01 AM CS T Body Mass Index 29.71 04/27/2023 11:01 AM MAGISTERIAL DISTRICT JUDGE Plan of Treatment Health Maintenance Due Date Last Done Comments Pneumococcal PPSV23 Highest Risk Adult (1 of 3 - PCV13) 2007 COVID-19 Vaccine (2022-2 4 season) 2024 04/07/2022, 02/26/2021, 02/05/2021 Influenza Vaccine (#1) 2024 , 08/22/2021, 03/17/2019, Additional history exists Care Teams Cell Operation Supervisor Relationship Specialty Start Date End Date Brinda Cordero MD [address] [facility] [address] PCP - General Family Medicine 03/16/23
--- OUTSIDE RECORDS SUMMARY | 2024-01-24 21:06 | XMS_ITS | Encounter Summary ---
Author Organization [facility] Address [address] [place] [phone] Care Team Providers Care Restaurant Busser Name Role Phone Elsewhere, Pcp Primary Care Provider Unavailabl e Encounter Details Date Type Department Care Team (Late st Contact Info) Description 11/05/2023 Orders Only [facility] [address] [place] [phone] Krishan Jeffrey M.B.B.S. [address] [place] [phone] Social History Tobacco Use Types Packs/Day Years Used Date Smoking Tobacco: Never Smokeless Tobacco: Never Alcohol Use Standard Drinks/Week Comments No 0 (1 standard drink = 0.6 oz pur e alcohol) [facility] Utilities Answer Date Recorded In [...] often do you attend chur ch or congregational services? 1 to 4 times per year 07/01/2019 Do you belong to any clubs o r organizations such as holiness groups, unions, fraternal or athletic groups, or [...] Answer Date Recorded PHQ-2 Score 1 12/06/2019 [facility] - Occupational [...] your living situation today? I have a [facility] place to live 06/28/2023 Education Answer Date Recorded What is the highest level of school you have completed or the highest degree you have received? GED or equivalent Sex and Gender Information Value Date Recorded Sex Assigned at Female 06/28/2023 7:21 PM MARKET DIRECTOR Gender Identity Female 07/01/2019 7:57 PM MARKET DIRECTOR Sexual Orientation Straight 07/01/2019 7: 57 PM MARKET DIRECTOR documented as of this encounter Plan of Treatment Upcoming Encounters Date Type Department Care Team (Latest Contact Info) Description 02/11/2024 4:20 PM CDT Appointment Department of Laboratory Medicine and Pathology, [facility] in [place], [place] 200 [place] [address] Julieta Brice M.D. 200 [place] [phone] 02/14/2024 12:49 PM CDT Hospital Encounter Post Anesthesia Care Unit in [place], [place] [address] [place] [phone] Oh Camp M.D., M.S. 200 [place] [phone] 02/14/2024 12:49 PM CDT - 02/14/2024 3:46 PM CDT Surgery RST ROMB MAIN OR [address] [place] [phone] Oh Camp M.D., M.S. [address] [place] [phone] SEPTOPLASTY 02/22/2024 7:30 AM CDT Office Visit Department of Otorhinolaryngology in [address] [phone] Julieta Brice M.D. [address] [place] [phone] Scheduled Procedures Name Priority Associated Diagnoses Date/Ti me SEPTOPLASTY Deviation Nasal Septal 02/14/2024 12:49 PM CDT REDUCTION TURBINATE Deviation Nasal Septal 02/14/2024 12:49 PM CDT documented as of this encounter Visit Diagnoses Not on filedocumented in this encounter Additional Health Concerns Assessment Noted Time PHQ-9 Depression Total Score: 5 12/06/19 20 10:06 AM CDT documented as of this encounter Care Teams Restaurant Busser Relationship Specialty Start Date End Date Elsewhere, Pcp PCP - General Internal Medicine 06/28/23 documented as of this encounter
--- OUTSIDE RECORDS SUMMARY | 2024-01-24 21:06 | XMS_ITS | Encounter Summary ---
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 [address] [place] [phone] [facility] Referral ID Status Reason Start Date Expiration Date Visits Re quested Visits Authorized [id number] Closed 11/01/2023 10/31/2024 1 1 * Outpatient (Routine) - Closed Specialty Diagnoses / Procedures Referred By Peri gaytan Referred To Contact Pulmonary Medicine Celestino Hudson, M.B.B.S. [address] [place] [phone] [facility] Referral ID Status Reason Start Date Expiration Date Visits Re quested Visits Authorized [id number] Closed 11/01/2023 05/02/2025 1 1 Scheduling Instructions Schedule pulmonary vasculitis clinic follow up in November with labs, PFT and imaging: CT Chest, CBC w/diff, CMP, ESR, CRP, ANCA, UA Encounter Details Date Type Department Care Team (Late st Contact Info) Description 11/01/2023 Orders Only Division of Pulmonary Medicine in [place], [place] 200 [place] [address] Celestino Hudson M.B.B.S. 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 I have a [facility] place to live 06/28/2023 Education Answer Date Recorded What is the highest level of school you have completed or the highest degree you have received? GED or equivalent Sex and Gender Information Value Date Recorded Sex Assigned at Female 06/28/2023 7:21 PM STEWARDESSES TEACHER Gender Identity Female 07/01/2019 7:57 PM STEWARDESSES TEACHER Sexual Orientation Straight 07/01/2019 7: 57 PM STEWARDESSES TEACHER documented as of this encounter Plan of Treatment Upcoming Encounters Date Type Department Care Team (Latest Contact Info) Description 02/11/2024 4:20 PM CDT Appointment Department of Laboratory Medicine and Pathology, [facility], in [place], [place] [address] [place] [phone] Julieta Brice M.D. [address] [place] [phone] 02/14/2024 12:49 PM CDT Hospital Encounter Post Anesthesia Care Unit in [address] [phone] Oh Camp M.D., M.S. [address] [place] [phone] 02/14/2024 12:49 PM CDT - 02/14/2024 3:46 PM CDT Surgery RST ROMB MAIN OR [facility] [address] [place] [phone] Oh Camp M.D., M.S. [address] [place] [phone] SEPTOPLASTY 02/22/2024 7:30 AM CDT Office Visit Department of Otorhinolaryngology in [address] [place] [address] Julieta Brice M.D. 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) Expected: 11/01/2023, Expires: 01/31/2025 Scheduled Procedures Name Priority Associated Diagnoses Date/Ti me SEPTOPLASTY Deviation Nasal Septal 02/14/2024 12:49 PM CDT REDUCTION TURBINATE Deviation Nasal Septal 02/14/2024 12:49 PM CDT Scheduled Referrals Name Type Priority Associated Diagnoses Orde r Schedule Pulmonary Medicine office visit (clinic) Outpatient Referral Routine Expected: 11/22/2023 (Approximate), Expires: 01/31/2025 documented as of this encounter Results * Pulmonary Function Tests (11/22/2023 8:51 AM CDT) FVC 3.08 L 11/22/2023 3:14 PM CDT [facility] FEV1 2.58 L 11/22/2023 3:14 PM CDT [facility] FEV1/FVC 83.78 % 11/22/2023 3:14 PM CDT [facility] TDX18-27% 2.87 L/s 11/22/2023 3:14 PM CDT [facility] PEF PRE 8.31 L/s 11/22/2023 3:14 PM CDT [facility] PIF PRE 5.72 L/s 11/22/2023 3:14 PM CDT [facility] FEF 50 % FIF 50 PRE 70.14 % 11/22/2023 3:14 PM CDT [facility] FET PRE 9.02 sec 11/22/2023 3:14 PM CDT [facility] DLCO 19.31 ml/(min*mm Hg) 11/22/2023 3:14 PM CDT [facility] DLCOc 19.03 ml/(min*mm Hg) 11/22/2023 3:14 PM CDT [facility] HB 13.90 g(Hb)/dL 11/22/2023 3:14 PM CDT [facility] VA 3.79 L 11/22/2023 3:14 PM CDT [facility] TLC 4.53 L 11/22/2023 3:14 PM CDT [facility] FRCPLETH PROVBASE 2.36 L 11/22/2023 3:14 PM CDT [facility] RV 1.45 L 11/22/2023 3:14 PM CDT [facility] RV % TLC PRE 31.99 % 11/22/2023 3:14 PM CDT [facility] 11/22/2023 8:51 AM CDT Impressions [facility] - 11/22/2023 3:14 PM CDT Normal spirometry, lung volumes and diffusion capacity. Compared to 06/29/2023, TLC has increased. Narrative Procedure Note Tay Vasquez M.B.B.S. - 11/22/2023 IMPRESSION: Normal spirometry, lung volumes and diffusion capacity. Compared to06/29/2023, TLC has increased. Celestino Hudson M.B.B.S. PFT ORDERABLES [facility] NA * Urinalysis, with Microscopic: Urine, Midstream (11/22/2023 [...] AM CDT 11/22/2023 9:05 AM CDT Celestino Shankar.B.S. LAB URINE ORDERAB LES [facility] [address] [place] [address], [facility] [address] [place] [address] * ANCA (Antineutrophil Cytoplasmic Antibodies) Vasculitis Panel (11/22/2023 8:09 AM CDT) Myeloperoxidase Ab, S <0.2 <0.4 (Negative ) U 11/22/2023 3:33 PM CDT SDS Proteinase 3 Ab (PR3), S <0.2 <0.4 (Negative ) U 11/22/2023 3:33 PM CDT [facility] Blood (Blood, Venous) 11/22/2023 8:09 AM CDT 11/22/2023 1:51 PM CDT Celestino Shankar.B.S. LAB BLOOD ADD-ON [facility] [address] [place] [address] [facility] [address] [place] [address] * (ABNORMAL) CRP (C-Reactive Protein) (11/22/2023 8:09 AM CDT) C-Reactive Protein (CRP), S 5.4(H) <5.0 mg/L 11/22/2023 9:16 AM CDT DT Blood (Blood, Venous) 11/22/2023 8:09 AM CDT 11/22/2023 8:51 AM CDT Celestino JuarezB.S. LAB BLOOD ADD-ON [facility] [address] [place] [address], [facility] DTL 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
[2024-01-24 21:43] LABS: Creatinine, Point-of-Care* 0.8 mg/dl (0.6-1.3)
== END 2024-01-24 22:17 | disposition home or self-care (01) ==
PROVIDERS: Emergency Provider Family Medicine; PCP Family Medicine
DX: M54.2 Cervicalgia (principal)
CPT/HCPCS: 70498; 72125; 82565; 99283; 99284; Q9967

== ENCOUNTER 2024-04-07 13:15 | Outpatient (RCR) | payer MEDICARE, SELFPAY ==
--- NOTE | 2024-02-23 14:41 | PT.OPEX ---
PT [place] Outpatient Eval PT [facility] Outpatient Eval Start: 02/16/24 11:31 Freq: Status: Active Protocol: Document 02/23/24 10:34 CRP (Rec: 02/23/24 14:38 CRP [id number]) E-signed By Tyrell Jovel PT Physical Therapy Outpatient Evaluation Insurance Information Recert Due Date 05/23/24 Insurance Name Medicare B Medical Diagnosis Cervical Spine pain Referring MD Dr Lacey Subjective Subjective Pt reports that she was trying to turn in bed and used her head to help her move. [place] a pop and severe pain R side. This happened Jan 15. Could not move at all and went to urgent care. Was not happy with her care and did go to ER . Was given meds - steroid and muscle relaxers. These meds are done but she is just getting done with pain meds due to nose surgery for deviated septum. When neck was bad she did have times of pain into her L UE. Had short episode of tingling into forearm. Has had a long hx of neck pain but never this bad. Has been to chiropractor some since this happened. Maybe helped some. Current Work Status Unemployed Precautions Therapy Limitations/Systems Review Hearing Objective Other/Pertinent Objective Posture: forward head - hinge at mid cervical spine Cervical ROM: flex min dec, ext min/mod dec, R rot min dec , L rot min/mod dec, bilat SB min dec, Cervical retraction - felt relieving Bilat UE ROM WNL MMT: myotomes WNL. Deep cervical spine flexion - moderate weakness with limited nm control. Pt shows limited ability as well with bilat dynamic scap control. Segmental testing - Seated - hypomob and painful multi level CT spine with reproduction of headaches at multiple levels Assessment Assessment/Impression Pt presents to the clinic with ongoing issues of cervical spine pain. Although her primary region of pain is left sided, she presents with bilateral cervical spine pain and dysfunction. Pts presentation is characterized with painful loss of ROM, poor nm control of the cervicothoracic spine, postural dysfunction and general upper quadrant weakness. Skilled PT will incorporate ther ex, nm castlilo, manual therapy and pt education to decrease pain and improve functional mobility. Primary Functional Limitations Lying down Sleeping Lifting Looking up and working over head Plan of Care Rehabilitation Potential Excellent Physical Therapy Goals 1. Pt will be independent with HEP in 8 weeks. 2. Pt will be able to look up and work with hands over head and no pain in 10 weeks. 3. Pt will be able to sleep in normal supine positioning without c.o in 12 weeks. Coordination/Communication With Referral Source Treatment Plan/Direct Interventions Joint Mobilization,Manual Therapy,Neuromuscular Re-ed, Self-Care/Home Management, Therapeutic Activities, Therapeutic Exercises Frequency/Duration 1-2x/wk for 12 weeks Patient Will Be Discharged From Therapy Completion of LTG(s),Skills Plateau,Independent w/HEP, Independently Progressing Evaluation Billing Untimed Code Treatment Minutes 40 Complexity Moderate Certification Information Initial Certification Date 02/23/24 Ending Certification Date 05/23/24 Provider Signature Required Yes Provider Signature Shows Agreement With POC & Medical Necessity Physician NPI Number Write NPI# Here Physician Comment/Change : Physician Signature & Date Requested Please Sign/Date Here
== END 2024-04-07 13:54 | disposition home or self-care (01) ==
PROVIDERS: PCP Family Medicine; Visit Provider Family Medicine
DX: M54.2 Cervicalgia (principal); Z51.89 Encounter for other specified aftercare
CPT/HCPCS: 97110; 97140; 97162

== ENCOUNTER 2024-08-25 16:54 | Emergency (ER) | payer MEDICARE, SELFPAY ==
--- OUTSIDE RECORDS SUMMARY | 2024-08-25 16:57 | XMS_ITS | Encounter Summary ---
Author Organization [facility] Address [address] [place] [address] Care Team Providers Care Elastic Yarn Twister Helper Name Role Phone Lynn Jacobs M.D. Primary Care Provider [phone] Reason for Referral * Outpatient (Routine) - Authorized Specialty Diagnoses / Procedures Referred By Peri gaytan Referred To Contact Otorhinolaryngology Diagnoses Vocal Cord Disease Lynn Jacobs M.D. [address] [place] [address] Phone: tel: fax: [facility] Region Referral ID Status Reason Start Date Expiration Date Visits Requested Visits Authorized [id number] Authorized Specialty Services Required 08/17/2024 02/16/2026 1 1 Encounter Details Date Type Department Care Team (Late st Contact Info) Description 08/17/2024 Orders Only Department of Family Medicine, [facility], in [place], [place] 300 [place] [address] Lynn Jacobs M.D. 300 [place] [address] Vocal Cord Disease (Primary Dx) Social History Tobacco Use Types Packs/Day Years Used Date Smoking Tobacco: Never Smokeless Tobacco: Never Alcohol Use Standard Drinks/Week Comments No 0 (1 standard drink = 0.6 oz pur e alcohol) [facility] Utilities Answer Date Recorded In the past 12 months has th e electric, [employer], oil, or water [employer] threatened to shut off services in your [...] 07/01/2019 PHQ-2 Answer Date Recorded PHQ-2 Score 5 06/19/2024 [place] [place] of Occupat ional Health - Occupational Stress [...] Recor ded PHQ-9 Total Score (max 27) 10 06/19 Nutrition Answer Date Recorded On average, how many serving s of [...] your living situation today? I have a [facility] place to live 06/28/2023 Education Answer Date Recorded What is the highest level of school you have completed or the highest degree you have received? GED or equivalent Comments No Sex and Gender Information Value Date Recorded Sex Assigned at Female 06/28/2023 7:21 PM QUALITY TECH Legal Sex Female 2:56 PM QUALITY TECH Gender Identity Female 07/01/2019 7:57 PM QUALITY TECH Sexual Orientation Straight 07/01/2019 7: 57 PM QUALITY TECH documented as of this encounter Plan of Treatment Upcoming Encounters Date Type Department Care Team (Latest Contact Info) Description 08/28/2024 9:40 AM CDT Office Visit Department of Family Medicine, [facility], in [address] [phone] Lynn Jacobs M.D. 300 [place] [address] 09/07/2024 3:45 PM CDT Office Visit Department of Otorhinolaryngology in [place], [place] [address] [place] [phone] Julieta Brice M.D. [address] [place] [phone] 09/22/2024 10:00 AM CDT Appointment Department of Cardiovascular Diseases in [address] [phone] Yanick Cartwright APRN, C.N.P. [address] [place] [phone] Discharge Disposition: Home or Self Care 09/22/2024 11:20 AM CDT Appointment Department of Laboratory Medicine in [address] [phone] Yanick Cartwright APRN, C.N.P. [address] [phone] 10/06/2024 7:30 AM CDT Clinical Communication Virtual Review in [place], [place] [address] [place] [phone] 10/11/2024 2:50 PM CDT Comprehensive Visit Division of Gastroenterology in [place], [place] [address] [place] [phone] Krishan Jeffrey M.B.B.S. [address] [place] [address] 12/04/2024 2:00 PM CDT Office Visit Department of Family Medicine, [facility], in [place], [place] [address] [place] [address] Wendy Robles APRN, C.N.P. [address] [place] [phone] Scheduled Referrals Name Type Priority Associated Diagnoses Order Schedule [facility] Otorhinolaryngology - General consult (clinic) Outpatient Referral Routine Vocal Cord Disease Expected: 08/17/2024, Expires: 11/16/2025 documented as of this encounter Visit Diagnoses Diagnosis Vocal Cord Disease- Primary documented in this encounter Additional Health Concerns Assessment Noted Time PHQ-9 Depression Total Score: 10 025 11:16 AM QUALITY TECH documented as of this encounter Care Teams Elastic Yarn Twister Helper Relationship Specialty Start Date End Date Lynn Jacobs M.D. [address] [place] [phone] PCP - General Family Medicine 04/03/24 documented as of this encounter
--- OUTSIDE RECORDS SUMMARY | 2024-08-25 16:57 | XMS_ITS | Encounter Summary ---
Author Organization [facility] Address [address] [place] [address] Care Team Providers Care Architecture Technician Name Role Phone Lynn Jacobs M.D. Primary Care Provider [phone] Reason for Referral * Outpatient (Routine) - Closed Specialty Diagnoses / Procedures Referred By Contact Referred To Contact Cardiovascular Diseases / Cardiovascular Disease Diagnoses Hypertension Essential Primary Dyspnea On Exertion Krishan Jeffrey M.B.B.S. [address] [place] [address] Phone: tel: fax: [facility] Region Referral ID Status Reason Start Date Expiration Date Visits Re quested Visits Authorized [id number] Closed 07/03/2024 01/02/2026 1 1 TANT GENERAL Reason for Visit * Reason Onset Date Comments Triage 07/03/2024 Davina Ballard, # [phone] Encounter Details Date Type Department Care Team (Latest Contact Info) Description 07/03/2024 Clinical Communication Department of Cardiovascular Medicine in [place], [place] [address] [place] [phone] Soda DialyzerZuhair M.D. Triage (Davina Ballard, # [phone]) Social History Tobacco Use Types Packs/Day Years Used Date Smoking Tobacco: Never Smokeless Tobacco: Never Alcohol Use Standard Drinks/Week Comments No 0 (1 standard drink = 0.6 oz pur e alcohol) [facility] Utilities Answer Date Recorded In the past 12 months has [employer], gas, oil, or water [employer] threatened to shut off services in your [...] any clubs o r organizations such as mandaeism groups, unions, fraternal or athletic groups, or [...] Answer Date Recorded PHQ-2 Score 5 06/19/2024 [facility] of Occupat ional Health - [...] your living situation today? I have a [facility] place to live 06/28/2023 Education Answer Date Recorded What is the highest level of school you have completed or the highest degree you have received? GED or equivalent Comments No Sex and Gender Information Value Date Recorded Sex Assigned at Female 06/28/2023 7:21 PM ADJUTANT GENERAL Legal Sex Female 2:56 PM ADJUTANT GENERAL Gender Identity Female 07/01/2019 7:57 PM ADJUTANT GENERAL Sexual Orientation Straight 07/01/2019 7: 57 PM ADJUTANT GENERAL documented as of this encounter Plan of Treatment Upcoming Encounters Date Type Department Care Team (Latest Contact Info) Description 08/28/2024 9:40 AM CDT Office Visit Department of Family Medicine, [facility], in [address] [phone] Lynn Jacobs M.D. 300 [place] [phone] 09/07/2024 3:45 PM CDT Office Visit Department of Otorhinolaryngology in [place], [place] [address] [place] [phone] Julieta Brice M.D. [address] [place] [phone] 09/22/2024 10:00 AM CDT Appointment Department of Cardiovascular Diseases in [address] [phone] Yanick Cartwright APRN, C.N.P. [address] [phone] Discharge Disposition: Home or Self Care 09/22/2024 11:20 AM CDT Appointment Department of Laboratory Medicine in [address] [phone] Yanick Cartwright APRN, C.N.P. [address] [phone] 10/06/2024 7:30 AM CDT Clinical Communication Virtual Review in [place], [place] [address] [place] [phone] 10/11/2024 2:50 PM CDT Comprehensive Visit Division of Gastroenterology in [place], [place] [address] [place] [phone] Krisahn Jeffrey M.B.BJairS. [address] [place] [address] 12/04/2024 2:00 PM CDT Office Visit Department of Family Medicine, [facility], in [place], [place] [address] [phone] Wendy Robles APRN, C.N.P. [address] [phone] Scheduled Referrals Name Type Priority Associated Diagnoses Order Schedule Cardiovascular Disease - General cardiology consult (clinic) Outpatient Referral Routine Hypertension Essential Primary Dyspnea On Exertion Expected: 07/03/2024, Expires: 09/30/2025 documented as of this encounter Visit Diagnoses Diagnosis Hypertension Essential Primary- Primary Dyspnea On Exertion documented in this encounter Additional Health Concerns Assessment Noted Time PHQ-9 Depression Total Score: 10 025 11:16 AM ADJUTANT GENERAL documented as of this encounter Care Teams Architecture Technician Relationship Specialty Start Date End Date Lynn Jacobs M.D. [address] [place] [phone] PCP - General Family Medicine 04/03/24 documented as of this encounter
--- OUTSIDE RECORDS SUMMARY | 2024-08-25 16:57 | XMS_ITS | Encounter Summary ---
Author Organization [facility] Address [address] [place] [address] Care Team Providers Care Community Outreach Manager Name Role Phone Lynn Jacobs M.D. Primary Care Provider [phone] Reason for Referral * Outpatient (Routine) - Closed Specialty Diagnoses / Procedures Referred By Contac t Referred To Contact Diagnoses Rhinitis Allergic Procedures Northern Skin Test Reed Schmid M.D. [address] [place] [address] Phone: tel: fax: [facility] Referral ID Status Reason Start Date Expiration Date Visits Re quested Visits Authorized [id number] Closed 07/17/2024 10/17/2025 1 1 [employer] * Outpatient (Routine) - Closed Specialty Diagnoses / Procedures Referred By Contac t Referred To Contact Diagnoses Rhinitis Allergic Procedures Basic Skin Test Reed Schmid M.D. [address] [place] [address] Phone: tel: fax: [facility] Region Referral ID Status Reason Start Date Expiration Date Visits Re quested Visits Authorized [id number] Closed 07/17/2024 10/17/2025 1 1 [employer] Reason for Visit * Reason Onset Date Comments Previsit Preparation 07/14/2024 Encounter Details Date Type Department Care Team (Latest Contact Info) Description 07/14/2024 Clinical Communication Department of Allergy in [place], [place] [address] [place] [phone] Emmy Caraballo, L.P.N. Previsit Preparation Social History Tobacco Use Types Packs/Day Years Used Date Smoking Tobacco: Never Smokeless Tobacco: Never Alcohol Use Standard Drinks/Week Comments No 0 (1 standard drink = 0.6 oz pur e alcohol) [facility] Utilities Answer Date Recorded In the past 12 months has e Familiar, gas, oil, or water [employer] threatened to shut off services in your [...] often do you attend chur ch or amish services? 1 to 4 times per year 07/01/2019 Do you belong to any clubs o r organizations such as yarsani groups, unions, fraternal or athletic groups, or [...] Answer Date Recorded PHQ-2 Score 5 06/19/2024 [facility] [...] living situation today? I have a [facility] place to live 06/28/2023 Education Answer Date Recorded What is the highest level of school you have completed or the highest degree you have received? GED or equivalent Comments No Sex and Gender Information Value Date Recorded Sex Assigned at Female 06/28/2023 7:21 PM [employer] Legal Sex Female 2:56 PM [employer] Gender Identity Female 07/01/2019 7:57 PM [employer] Sexual Orientation Straight 07/01/2019 7: 57 PM [employer] documented as of this encounter Plan of Treatment Upcoming Encounters Date Type Department Care Team (Latest Contact Info) Description 08/28/2024 9:40 AM CDT Office Visit Department of Family Medicine, [facility], in [address] [phone] Lynn Jacobs M.D. [address] [place] [phone] 09/07/2024 3:45 PM CDT Office Visit Department of Otorhinolaryngology in [place], [place] [address] [place] [address] Julieta Brice M.D. [address] [place] [address] 09/22/2024 10:00 AM CDT Appointment Department of Cardiovascular Diseases in [address] [phone] Yanick Cartwright APRN, C.N.P. [address] [phone] Discharge Disposition: Home or Self Care 09/22/2024 11:20 AM CDT Appointment Department of Laboratory Medicine in [address] [phone] Yanick Cartwright APRN, C.N.P. [address] [phone] 10/06/2024 7:30 AM CDT Clinical Communication Virtual Review in [place], [place] [address] [place] [phone] 10/11/2024 2:50 PM CDT Comprehensive Visit Division of Gastroenterology in [place], [place] [address] [place] [phone] Krishan Jeffrey M.B.B.S. [address] [place] [phone] 12/04/2024 2:00 PM CDT Office Visit Department of Family Medicine, [facility], in [place], [place] [address] [phone] Wendy Robles APRN, C.NJairP. [address] [phone] documented as of this encounter Results * Northern Skin Test (08/04/2024 9:30 AM CDT) Narrative [facility] - 08/04/2024 9:30 AM CDT Katherine Cha R.N. 08/04/2024 10:55 AM Panel Skin Tests Flowsheet Row Clinical Support from 08/04/2024 in Department of Allergy in [place], [place] Controls Histamine (15 min W/F) 9x9w/f Glycerine (15 min W/F) 0 Tracy Basic Adult Panel Adriana, White: 0 Tacho, White: 0 Birch: 0 Pecos, Red: 0 Schley, Eastern: 0 [place]: 0 [place]: 0 [place], Shagbark: 0 Maple: 0 Harmony, White: 0 [place], Black: 0 Stewart: 0 Cassia, White: 0 [place]: 0 Harwood, Paraguayan: 0 [place], Black: 0 Real: 0 Berm[place]: 7x7f [place] Blue: 0 Orchard: 0 Quack: 7x7f Red Albany: 0 Franco: 0 Cocklebur: 0 Kochia: 0 James's Quarters: 0 Steele Elder, Burweed: 0 Mugwort, Common: 0 Nettle: 0 Plantain, Frisian: 0 Rough Pigweed: 0 Prydeinig Thistle: 0 Short Ragweed: 0 Gillis, Sheep Red: 0 Cat Hair: 0 Cattle Epithelia: 0 Dog AP: 0 D.F. Mite: 15x15f/w D.P. Mite: 15x15f/w Ho Horse: 0 Alternaria Alternata: 0 Aspergillus Fumigatus: 0 Bipolaris Sorokiniana: 0 Chaetomium Globosum: 0 Grain Smut Mix: 0 Curvularia Spicifera: 0 Epicoccum Nigrum: 0 Fusarium Solani: 0 Geotrichum Candidum: 0 Helminthosporium Solani: 0 Cladosporium Sphaerospermum: 0 Mucor Circinelloides: 0 Penicillium Mix: 0 Phoma Betae: 0 Aureobasidium Pullalans: 0 Rhizopus Stolonifer: 0 Stemphylium Solani: 0 Reed Schmid M.D. PROCEDURE/MINOR SURGICAL OR DERABLES Final Result [facility] NA * Basic Skin Test (08/04/2024 9:30 AM CDT) Narrative MMODAL - 08/04/2024 9:30 AM CDT Katherine Cha R.N. 08/04/2024 10:55 AM Panel Skin Tests Flowsheet Row Clinical Support from 08/04/2024 in Department of Allergy in [place], [place] Controls Histamine (15 min W/F) 9x9w/f Glycerine (15 min W/F) 0 Tracy Basic Adult Panel [place], White: 0 Tacho, White: 0 Birch: 0 Pecos, Red: 0 Schley, Eastern: 0 [place]: 0 [place]: 0 [place], Shagbark: 0 Maple: 0 Harmony, White: 0 [place], Black: 0 Stewart: 0 Cassia, White: 0 [place]: 0 Harwood, Paraguayan: 0 [place], Black: 0 Real: 0 B[place]: 7x7f [place] Blue: 0 Orchard: 0 Quack: 7x7f Red [place]: 0 Franco: 0 Cocklebur: 0 Kochia: 0 James's Quarters: 0 Steele Elder, Burweed: 0 Mugwort, Common: 0 Nettle: 0 Plantain, Frisian: 0 Rough Pigweed: 0 Prydeinig Thistle: 0 Short Ragweed: 0 Gillis, Sheep Red: 0 Cat Hair: 0 Cattle Epithelia: 0 Dog AP: 0 D.F. Mite: 15x15f/w D.P. Mite: 15x15f/w Ho Horse: 0 Alternaria Alternata: 0 Aspergillus Fumigatus: 0 Bipolaris Sorokiniana: 0 Chaetomium Globosum: 0 Grain Smut Mix: 0 Curvularia Spicifera: 0 Epicoccum Nigrum: 0 Fusarium Solani: 0 Geotrichum Candidum: 0 Helminthosporium Solani: 0 Cladosporium Sphaerospermum: 0 Mucor Circinelloides: 0 Penicillium Mix: 0 Phoma Betae: 0 Aureobasidium Pullalans: 0 Rhizopus Stolonifer: 0 Stemphylium Solani: 0 Reed Schmid M.D. PROCEDURE/MINOR SURGICAL OR DERABLES Final Result [facility] NA documented in this encounter Visit Diagnoses Diagnosis Rhinitis Allergic- Primary Rhinitis Allergic documented in this encounter Additional Health Concerns Assessment Noted Time PHQ-9 Depression Total Score: 10 06/19/ 025 11:16 AM [employer] documented as of this encounter Care Teams Community Outreach Manager Relationship Specialty Start Date End Date Lynn Jacobs M.D. [address] [place] [address] [place] [phone] PCP - General Family Medicine 04/03/24 documented as of this encounter
--- OUTSIDE RECORDS SUMMARY | 2024-08-25 16:57 | XMS_ITS | Encounter Summary ---
Author Organization [facility] Address [address] [place] [address] Care Team Providers Care Dean Of Boys Name Role Phone Lynn Jacobs M.D. Primary Care Provider [phone] Reason for Referral * Cardiovascular-Diagnostic (Routine) - Authorized Specialty Diagnoses / Procedures Referred By Contac t Referred To Contact Diagnoses Dyspnea On Exertion Palpitations Procedures Echo Transthoracic (TTE) Yanick Cartwright APRN, C.N.P. [address], [place] [address] Phone: tel: fax: [facility] Region Referral ID Status Reason Start Date Expiration Date V isits Requested Visits Authorized [id number] Authorized 07/28/2024 10/28/2025 1 1 Reason for Visit * Reason Comments Advice Only * Outpatient (Routine) - Closed Specialty Diagnoses / Procedures Referred By Contact Referred To Contact Cardiovascular Diseases / Cardiovascular Disease Diagnoses Hypertension Essential Primary Dyspnea On Exertion Krishan Jeffrey M.B.BJairS. [address] [place] [address] Phone: tel: fax: [facility] Region Referral ID Status Reason Start Date Expiration Date Visits Re quested Visits Authorized [id number] Closed 07/03/2024 01/02/2026 1 1 Encounter Details Date Type Department Care Team (Latest Contact Info) Description 07/28/2024 1:30 PM CDT Comprehensive Visit Department of Cardiovascular Diseases in [place], [place] [address] [place] [address] Yanick Cartwright, CINTHIA, C.N.P. [address] [place] [address] Palpitations (Primary Dx); Dyspnea On Exertion; Hypertension Essential Primary Social History Tobacco Use Types Packs/Day Years Used Date Smoking Tobacco: Never Smokeless Tobacco: Never Alcohol Use Standard Drinks/Week Comments No 0 (1 standard drink = 0.6 oz pur e alcohol) [facility] Utilities Answer Date Recorded In the past 12 months has e [employer], gas, oil, or water [employer] threatened to shut off services in your [...] often do you attend chur ch or islam services? 1 to 4 times per year [...] Answer Date Recorded PHQ-2 Score 5 06/19/2024 [facility] - Occupational Stress Questionnaire Answer Date Recorded [...] your living situation today? I have a ol[place] place to live 06/28/2023 Education Answer Date Recorded What is the highest level of school you have completed or the highest degree you have received? GED or equivalent Comments No Sex and Gender Information Value Date Recorded Sex Assigned at Female 06/28/2023 7:21 PM RETIREMENT CONSULTANT Legal Sex Female 2:56 PM RETIREMENT CONSULTANT Gender Identity Female 07/01/2019 7:57 PM RETIREMENT CONSULTANT Sexual Orientation Straight 07/01/2019 7: 57 PM RETIREMENT CONSULTANT documented as of this encounter Last Filed Vital Signs Vital Sign Reading Time Taken Comments Blood Pressure 137/94 07/28/2024 1:17 PM CDT Pulse 120 07/28/2024 1:14 PM CDT Temperature - - Respiratory Rate - - Oxygen Saturation - - Inhaled Oxygen Concentration - - Weight 78.3 kg (172 lb 9.9 oz) 07/28/2024 1:14 P M CDT Height - - Body Mass Index 31.21 07/03/2024 11:14 AM RETIREMENT CONSULTANT documented in this encounter Consult Notes * Yanick Cartwright, CINTHIA, C.N.P. - 07/28/2024 1:30 PM CDT SUBJECTIVE CHIEF COMPLAINT/REASON FOR VISIT Palpitations, dizziness, shortness of breath REFERRAL SOURCE Krishan Jeffrey M.B.B.S. HISTORY OF PRESENT ILLNESS Liv Evans is seen today for consultation in the setting of recent symptoms that were mentioned to her supervisor [employer] at a visit last month. She was seen today accompanied by her two young, energetic, children. She preferred to hand harmon on paper for communication today (deafness). She had reported sensations of palpitations which includes her heart beating quickly or beating hard as well as episodes of a varying heart rate which are measured by a smart watch. At times her smart watch can show heart rates down into the 40s and other times as high as 150 beats per minute. She also indicates that she has had some intermittent exertional dyspnea but this is not always limitingand she largely attributes it to deconditioning. She tells me that she and her have been talking about going to a gym to begin an exercise regimen. She does have a history of hypertension and has been placed on hydrochlorothiazide and metoprolol. This has not made substantial improvement on any of her symptoms. She did undergo pulmonary functiontesting last month which revealed normal findings. She also underwent an overnight oximetry that did not clearly demonstrate sleep disordered breathing. She did wear a case monitor prior to her visit with me today, she has not heard those results yet. She did have a number of symptoms when she wore that monitor with no significant cardiac abnormalities detected (see diagnostic section below). She has a personal history of asthma, fatty liver, depression, GERD, chronic headaches, hypertension, obesity, polycystic ovarian, deafness, and scoliosis. 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 She still has some mild chronic elevations in her inflammatory markers including a sed rate of 32 and a CRP of 9.5. While elevated, they are lower than previous levels. she also recently describes some problems of gagging and vomiting attributed to spasms in her throat, sinusitis issues and is seeing ENT next month. There has been some concern about ANCA negative vasculitis. She has routine follow up with GI also scheduled in the near future. 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 CURRENT MEDICATIONS Current Medications[1] ALLERGIES/CONTRAINDICATIONS Allergies Allergen Reactions Albuterol Palpitations Latex Other (see comments) and Itching Possible reaction, not confirmed Pt reports a little tightness with breathing and itching Sulfa (Sulfonamide Antibiotics) Other (see comments) Unknown reaction Sulfamethoxazole-Trimethoprim Other (see comments) Cerner list no reaction Penicillins Hives (Reselect Reaction), Other (see comments) and Rash Sulfamethoxazole Rash Trimethoprim Rash REVIEW OF SYSTEMS General: No fever, chills. Endocrine: No weight loss or weight gain. No heat or cold intolerances. No increased thirst. HEENT: No new problems with ears, eyes, nose, throat. Respiratory: Positive for some exertional dyspnea, negative for PND or orthopnea. Heart: A varying heart rate as noted by her smart watch but no clear correlation to symptoms. Abdomen: No abdominal pain. Gastrointestinal: No change in bowel habits or blood in the stool. Genitourinary: No change in urinary habits or blood in the urine. Musculoskeletal: No new joint pains or muscle weakness. Neurological: No history of transient ischemic attack or cerebrovascular accident. The rest of the Review of Systems and pertinent positives per History of Present Illness. MEDICAL HISTORY Medical History[2] SURGICAL HISTORY Surgical History[3] SOCIAL HISTORY Social History Socioeconomic History Marital status: Spouse name: Not on file Number of children: 1 Years of education: Not on file Highest education level: GED or equivalent Occupational History Not on file Tobacco Use Smoking status: Never Smokeless tobacco: Never Vaping Use Vaping status: never used Substance and Sexual Activity Alcohol use: No Drug use: Never Sexual activity: Yes Partners: Male Other Topics Concern Not on file Social History Narrative Not on file Social Drivers of Health Food Insecurity: No Food Insecurity (03/01/2024) [facility] Food Insecurity Do you worry your food will run out before you are able to buy more?: 1 Transportation Needs: No Transportation Needs (03/01/2024) [facility] Transportation Needs Does lack of transportation keep you from medical appointments?: 1 Does lack of transportation keep you from work, meetings or getting things that you need?: 1 Physical Activity: Sufficiently Active (06/28/2023) Exercise Vital Sign Days of Exercise per Week: 4 days Minutes of Exercise per Session: 40 min Intimate Partner Violence: Not At Risk (07/04/2019) [facility] Humiliation, Afraid, Rape, and Kick questionnaire Fear of Current or Ex-Partner: No Emotionally Abused: No Physically Abused: No Sexually Abused: No Housing Stability: Medium Risk (03/01/2024) [facility] Housing Stability What is your housing situation today?: 2 FAMILY HISTORY Family History[4] OBJECTIVE VITAL SIGNS BP (!) 137/94 (BP Location: Right arm) Pulse (!) 120 Wt 78.3 kg BMI 31.21 kg/m?? PHYSICAL EXAMINATION General: Well-appearing in no acute distress, oriented x 3. HEENT: Pupils equal, reactive to light. Sclerae anicteric. Vessels: No jugular venous distension or carotid bruits. Heart: Regular rate and rhythm. Normal S1-S2. No murmurs. Lungs: Clear bilaterally. Abdomen: Nondistended. Extremities: No pitting edema. Neurological: Upper and lower extremity movement equal bilaterally. DIAGNOSTICS ECG May 22, 2024 Narrative & Impression IMPRESSION: Normal sinus rhythm Minimal voltage criteria for LVH, may be normal variant Holter monitor July 06, 2024 Interpretation Summary 1. The basic rhythm was sinus with sinus arrhythmia. The total analyzed time was 22h 2m. The heart rate varied from 58 to 125 bpm. The average HR was 83 bpm. 2. No premature ventricular complexes were noted. 3. Premature supraventricular complexes were noted singly. There were 2 PACs recorded with a PAC burden of less than 1%. 4. A total of 9 symptomatic events were noted, which included symptoms of constant: shortness of breath and fatigue, occasional: dizziness, feeling faint, chest pain, chest pressure; rarely: skippedbeats. The basic rhythm was sinus with sinus arrhythmia. The heart rate varied from 81 to 98 bpm. No ectopy was noted. Lab Results Component Value Date CREATININE 0.67 07/03/2024 BUN 17 07/03/2024 NA 139 07/03/2024 KSERUM 4.6 07/03/2024 KPLASMA 3.3 (L) 05/22/2024 CL 103 07/03/2024 CO2 29 04/07/2022 Lab Results Component Value Date WBC 10.3 (H) 07/03/2024 HGB 13.6 07/03/2024 HCT 40.3 07/03/2024 MCV 91.4 07/03/2024 PLT 378 (H) 07/03/2024 Lab Results Component Value Date TSH 1.6 05/22/2024 Lab Results Component Value Date CHOL 230 (H) 05/16/2019 Lab Results Component Value Date HDL 42 05/16/2019 Lab Results Component Value Date LDLCALC 104 09/16/2015 Lab Results Component Value Date TRIG 375 (H) 05/16/2019 The ASCVD Risk score (Juan M DK, et al., 2019) failed to calculate for the following reasons: The 2019 ASCVD risk score is only valid for ages 40 to 79 ASSESSMENT / PLAN #1 Palpitations At this point in time there is no clear explanation for her symptoms of palpitations. She wore a Holter monitor for 22 hours and during that time frame she reported nine symptomatic events. Her heartrhythm was sinus with a sinus arrhythmia throughout with a heart rate of 81-98 beats per minute. She did not have PVCs or frequent PACs to account for those symptoms. She does tell me that while she had a number of symptoms these were not her classic symptoms. Her Holter monitor was not performed as a cascade. Therefore, we will proceed with a one-week event monitor to try to capture more of these episodes to ensure there is no rhythm abnormality underlying these symptoms. In the meantime, would be very reasonable for her to continue with the metoprolol. #2 Dyspnea On Exertion There has been no clear explanation for her exertional dyspnea. It may ultimately be multifactorial. 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 I have recommended proceeding with an echocardiogram and would like herto also complete an NT proBNP. It may be worthwhile having her perform a cardiopulmonary exercise study if her testing remains unremarkable. I will follow up with her on those results once available. #3 Hypertension Essential Primary She is on hydrochlorothiazide and metoprolol for hypertension management through her primary care physician. Her blood pressure is not quite to goal today. I would recommend continued blood pressure monitoring and follow up with primary care for management. We should aim for a goal blood pressure less than 130/80. Additional potential benefits could come in the form of lifestyle management changes with promotion of a more ideal body weight (BMI 31.2) as well as engagement in a regular exercise regimen. [1] Current Outpatient Medications: beclomethasone (Qvar RediHaler) 80 mcg/actuation inhaler, Inhale 1 puff 2 (two) times a day. Rinse mouth with water after use to reduce aftertaste and incidence of candidiasis. Do not swallow. (Patient not taking: Reported on 06/22/2024), Disp: 10.6 g, Rfl: 11 fluticasone propionate (Flonase) 50 mcg/actuation nasal spray, Administer 2 sprays into each nostril daily. (Patient not taking: Reported on 06/22/2024), Disp: 16 g, Rfl: 0 hydroCHLOROthiazide (HydroDiuril) 25 mg tablet, Take 1 tablet (25 mg total) by mouth daily. (Patient not taking: Reported on 06/22/2024), Disp: 90 tablet, Rfl: 3 levalbuterol (Xopenex HFA) 45 mcg/actuation inhaler, Inhale 2 puffs every 6 (six) hours as needed for wheezing. (Patient not taking: Reported on 06/22/2024), Disp: 1 each, Rfl: 11 loratadine (Claritin) 10 mg tablet, Take 1 tablet (10 mg total) by mouth daily as needed for allergies. (Patient not taking: Reported on 06/22/2024), Disp: 30 tablet, Rfl: 3 metoprolol succinate (Toprol XL) 25 mg 24 hr tablet, Take 1 tablet (25 mg total) by mouth daily. Donot crush or chew. (Patient not taking: Reported on 06/22/2024), Disp: 90 tablet, Rfl: 3 naltrexone (Depade) 50 mg tablet, Take 1 tablet (50 mg total) by mouth daily., Disp: 100 tablet, Rfl: 3 omeprazole (PriLOSEC) [address] capsule, Take 1 capsule (20 mg total) by mouth 2 (two) times a day before morning and evening meals. (Patient not taking: Reported on 06/22/2024), Disp: 180 capsule, Rfl:2 tacrolimus (Protopic) 0.1 % ointment, Apply 1 Application topically 2 (two) times a day. Apply to affected areas on eyebrows and eyelash line., Disp: 30 g, Rfl: 3 [2] Past Medical History: Diagnosis Date Asthma (HCC) Bartholin's Gland Cyst 01/15/2017 Deaf Nonspeaking Not Elsewhere Classified 05/18/2013 Depressive Disorder Fatty Liver Gastroesophageal Reflux Disease Headache Unspecified 07/14/2016 High Risk History Labor (HCC) 06/12/2013 delivered at 34 weeks after pprom at 30 weeks. Hypertension 12/24/2016 Infertility Female 08/02/2017 Loss Hearing Sensorineural Bilateral 11/21/2009 Menstrual Irregularity Other Allergy Status Other Than To Drugs And Biological Substances 07/04/2012 Other Specified Abnormal Immunological Findings In Serum 07/14/2016 Pain Back 12/16/2017 Pain Cervical 12/24/2016 Pain Chest Atypical Pain Pelvic Female 03/21/2018 Polycystic Ovary Syndrome 08/18/2010 Scoliosis 12/16/2017 [3] Past Surgical History: Procedure Laterality Date BILATERAL INGUINAL HERNIA REPAIR Bilateral 1994 Bilateral inguinal hernia repair BUNIONECTOMY Right 12/13/2018 CHOLECYSTECTOMY 2011 CHOLECYSTECTOMY REDUCTION TURBINATE N/A 02/14/2024 Procedure: INFERIOR TURBINATE OUTFRACTURE.; Surgeon: Julieta Brice M.D.; Location: [facility] SEPTOPLASTY N/A 02/14/2024 Procedure: SEPTOPLASTY.; Surgeon: Julieta Brice M.D.; Location: [facility] [4] History reviewed. No pertinent family history. documented in this encounter Miscellaneous Notes * Addendum Note - Yanick Cartwright APRN, C.N.P. - 07/28/2024 1:30 PM CDTAddended by: YANICK CARTWRIGHT on: 08/03/2024 04:31 PM Modules accepted: Orders documented in this encounter Plan of Treatment Upcoming Encounters Date Type Department Care Team (Latest Contact Info) Description 08/28/2024 9:40 AM CDT Office Visit Department of Family Medicine, [facility], in [address] [address] Lynn Jacobs M.D. [address] [place] [phone] 09/07/2024 3:45 PM CDT Office Visit Department of Otorhinolaryngology in [place], [place] [address] [place] [phone] Julieta Brice M.D. [address] [place] [phone] 09/22/2024 10:00 AM CDT Appointment Department of Cardiovascular Diseases in [place], [place] [address] [place] [address] Yanick Cartwright APRN, C.N.P. [address], [place] [address] Discharge Disposition: Home or Self Care 09/22/2024 11:20 AM CDT Appointment Department of Laboratory Medicine in [place], [place] [address] [place] [phone] Yanick Cartwright APRN, C.N.P. [address] [place] [phone] 10/06/2024 7:30 AM CDT Clinical Communication Virtual Review in [place], [place] [address] [place] [address] 10/11/2024 2:50 PM CDT Comprehensive Visit Division of Gastroenterology in [place], [place] [address] [place] [phone] Krishan Jeffrey M.B.BJairS. [address] [place] [phone] 12/04/2024 2:00 PM CDT Office Visit Department of Family Medicine, [facility], in [place], [place] [address] [phone] Wendy Robles APRN, C.N.P. [address] [phone] Scheduled Orders Name Type Priority Associated Diagnoses Order Schedule Echo Transthoracic (TTE) Echocardiography Routine Dyspnea On Exertion Palpitations Expected: 07/28/2024 (Approximate), Expires: 10/28/2025 NT-Pro B-Type Natriuretic Peptide (BNP) Lab Routine Dyspnea On Exertion Palpitations Expected: 07/28/2024, Expires: 10/28/2025 documented as of this encounter Visit Diagnoses Diagnosis Palpitations- Primary Dyspnea On Exertion Hypertension Essential Primary documented in this encounter Additional Health Concerns Assessment Noted Time PHQ-9 Depression Total Score: 10 025 11:16 AM RETIREMENT CONSULTANT documented as of this encounter Care Teams Dean Of Boys Relationship Specialty Start Date End Date Lynn Jacobs M.D. [address] [place] [phone] PCP - General Family Medicine 04/03/24 documented as of this encounter
--- OUTSIDE RECORDS SUMMARY | 2024-08-25 16:57 | XMS_ITS | Encounter Summary ---
Author Organization [facility] Address [address] [place] [address] Care Team Providers Care Pump Servicer Supervisor Name Role Phone Lynn Jacobs M.D. 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 [address] [place] [phone] Phone: tel:[phone] fax:[phone] [facility] Referral ID Status Reason Start Date Expiration Date Visits Requested Visits Authorized [id number] Authorized Specialty Services Required 07/03/2024 01/02/2026 1 1 Scheduling Instructions GIH consult should be scheduled after all testing AL CHIEF EXPERIENCE OFFICER Encounter Details Date Type Department Care Team (Late st Contact Info) Description 07/03/2024 Orders Only Division of Pulmonary Medicine in [place], [place] [address] [place] [phone] Krishan Jeffrey M.B.B.S. 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 1 to 4 times per year 07/01/2019 Do you belong to any clubs o r organizations such as buddhist groups, unions, fraternal or athletic groups, or [...] Answer Date Recorded PHQ-2 Score 5 06/19/2024 [facility] [...] Sex Assigned at Female 06/28/2023 7:21 PM GLOBAL CHIEF EXPERIENCE OFFICER Legal Sex Female 2:56 PM GLOBAL CHIEF EXPERIENCE OFFICER Gender Identity Female 07/01/2019 7:57 PM GLOBAL CHIEF EXPERIENCE OFFICER Sexual Orientation Straight 07/01/2019 7: 57 PM GLOBAL CHIEF EXPERIENCE OFFICER documented as of this encounter Plan of Treatment Upcoming Encounters Date Type Department Care Team (Latest Contact Info) Description 08/28/2024 9:40 AM CDT Office Visit Department of Family Medicine, [facility], in [address] [phone] Lynn Jacobs M.D. 300 [place] [phone] 09/07/2024 3:45 PM CDT Office Visit Department of Otorhinolaryngology in [place], [place] [address] [place] [phone] Julieta Brice M.D. [address] [place] [phone] 09/22/2024 10:00 AM CDT Appointment Department of Cardiovascular Diseases in [address] [phone] Yanick Cartwright APRN, C.N.P. [address] [phone] Discharge Disposition: Home or Self Care 09/22/2024 11:20 AM CDT Appointment Department of Laboratory Medicine in [address] [phone] Yanick Cartwright APRN, C.N.P. [address] [phone] 10/06/2024 7:30 AM CDT Clinical Communication Virtual Review in [place], [place] 200 [place] [address] 10/11/2024 2:50 PM CDT Comprehensive Visit Division of Gastroenterology in [place], [place] [address] [place] [address] Krishan Jeffrey M.B.BJairS. [address] [place] [address] 12/04/2024 2:00 PM CDT Office Visit Department of Family Medicine, [facility], in [place], [place] [address], [place] [address] Wendy Robles APRN, C.N.P. 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 Mean saturation of 94% with several periods of increased variability and desaturation mostly occurring in the time period between 1:00 and 3:00 a.m. and correlating with diary entries of wakefulness with heart beat bothering me. This leads to a borderline RUBEN that may in fact be artifactual due to either probe malposition or motion. Heart rate tracing appears normal throughout. Impression: Indeterminate overnight oximetry. For the most part oxygen saturation is well preserved. Several suspicious desaturations appear to occur during documented wakefulness and may be artifactual however, correlation with the patient is necessary. Please note Elizabeth Sleepiness Scale score of 20 indicative of excessive daytime drowsiness. Physician: Roger Whitten M.D. [id number] Narrative Procedure Note Roger Whitten M.D., Ph.D. - 07/07/2024 IMPRESSION: This is an overnight oximetry performed on room air. Mean saturation of94% with several periods of increased variability and desaturation mostlyoccurring in the time period between 1:00 and 3:00 a.m. and correlatingwith diary entries of wakefulness with heart beat bothering me. This leads to a borderline RUBEN that mayin fact be artifactual due to either probe malposition or motion. Heartrate tracing appears normal throughout. Impression: Indeterminate overnight oximetry. For the most part oxygensaturation is well preserved. Several suspicious desaturations appear tooccur during documented wakefulness and may be artifactual however,correlation with the patient is necessary. Please note Elizabeth Sleepiness Scale score of 20 indicative ofexcessive daytime drowsiness. Physician: Roger Whitten M.D. [id number] Krishan Triana PFT ORDERABLES Final Resu lt [facility] * (ABNORMAL) Arterial Blood Gas - Rest (07/03/2024 12:23 PM GLOBAL CHIEF EXPERIENCE OFFICER) Sample Site Right Radial Single Stick 07/03/2024 12:44 PM GLOBAL CHIEF EXPERIENCE OFFICER DTL Patient Position Sit 07/03/19 12:44 PM GLOBAL CHIEF EXPERIENCE OFFICER DTL Patient Activity Rest 07/03/19 25 12:44 PM GLOBAL CHIEF EXPERIENCE OFFICER DTL FIO2 21.00 21%=AIR % 07/03/2024 12:44 PM GLOBAL CHIEF EXPERIENCE OFFICER DTL pH Arterial 7.46(H) 7.35 - 7.45 07/03/2024 12:44 PM GLOBAL CHIEF EXPERIENCE OFFICER DTL pCO2 Arterial 36.7 35.0 - 45.0 mm Hg 07/03/2024 12:44 PM GLOBAL CHIEF EXPERIENCE OFFICER DTL pO2 Arterial 94.6 80.0 - 100.0 mm Hg 07/03/2024 12:44 PM GLOBAL CHIEF EXPERIENCE OFFICER DTL Total Hemoglobin 12.8 11.6 - 15.0 g/dL 07/03/2024 12:44 PM GLOBAL CHIEF EXPERIENCE OFFICER DTL O2 Saturation 93.3(L) 94.0 - 98.0 % 07/03/2024 12:44 PM GLOBAL CHIEF EXPERIENCE OFFICER DTL Carboxyhemoglobin 3.9(H) 0.0 - 1.9 % 07/03/2024 12:44 PM GLOBAL CHIEF EXPERIENCE OFFICER DTL Methemoglobin 1.0(H) 0.0 - 0.9 % 07/03/2024 12:44 PM GLOBAL CHIEF EXPERIENCE OFFICER DTL Bicarbonate Conc 25.9 22.0 - 26.0 mmol/L 07/03/2024 12:44 PM GLOBAL CHIEF EXPERIENCE OFFICER DTL Base Excess 2.0 0.0 - 2.0 mmol/L 07/03/2024 12:44 PM GLOBAL CHIEF EXPERIENCE OFFICER DTL Maddox 0.00 07/03/2024 12:44 PM GLOBAL CHIEF EXPERIENCE OFFICER DTL Activity Time 10.0 min 07/03/2024 12:44 PM GLOBAL CHIEF EXPERIENCE OFFICER DTL Subcutaneous Lidocaine 0.0 mL 07/03/2024 12:44 PM GLOBAL CHIEF EXPERIENCE OFFICER DTL O2 Devices N/A 07/03/2024 12:44 PM GLOBAL CHIEF EXPERIENCE OFFICER DTL Blood (Blood, Arterial) 07/03/2024 12:23 PM GLOBAL CHIEF EXPERIENCE OFFICER 07/03/2024 12:43 PM GLOBAL CHIEF EXPERIENCE OFFICER Krishan Triana LAB BLOOD ADD-ON Final Res ult [facility] 200 [place] [address], [facility] 200 [place] [address] documented in this encounter Visit Diagnoses Diagnosis Vasculitis- Primary Dizziness Dyspnea On Exertion 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 [address] [place] [phone] PCP - General Family Medicine 04/03/24 documented as of this encounter
--- OUTSIDE RECORDS SUMMARY | 2024-08-25 16:57 | XMS_ITS | Encounter Summary ---
Author Organization [facility] Address [address] [place] [address] Care Team Providers Care Blending Plant Operator Name Role Phone Lynn Jacobs M.D. Primary Care Provider [phone] Encounter Details Date Type Department Care Team (Latest Contact Info) Description 08/04/2024 10:37 AM CDT - 08/04/2024 11:59 PM CDT Hospital Encounter Department of Laboratory Medicine in [place], [place] [address] [place] [phone] Reed Schmid M.D. [address] [place] [phone] Rhinitis Allergic Discharge Disposition: Home or Self Care Social History Tobacco Use Types Packs/Day Years Used Date Smoking Tobacco: Never Smokeless Tobacco: Never Alcohol Use Standard Drinks/Week Comments No 0 (1 standard drink = 0.6 oz pur e alcohol) [facility] Utilities Answer Date Recorded In the past 12 months has [employer], oil, or water [employer] threatened to shut off services in your [...] Answer Date Recorded PHQ-2 Score 5 06/19/2024 [facility] - Occupational [...] your living situation today? I have a [facility] place to live 06/28/2023 Education Answer Date Recorded What is the highest level of school you have completed or the highest degree you have received? GED or equivalent Comments No Sex and Gender Information Value Date Recorded Sex Assigned at Female 06/28/2023 7:21 PM INSPECTOR FLOOR SUB ASSEMBLY Legal Sex Female 2:56 PM INSPECTOR FLOOR SUB ASSEMBLY Gender Identity Female 07/01/2019 7:57 PM INSPECTOR FLOOR SUB ASSEMBLY Sexual Orientation Straight 07/01/2019 7: 57 PM INSPECTOR FLOOR SUB ASSEMBLY documented as of this encounter Medications at Time of Discharge beclomethasone (Qvar RediHaler) 80 mcg/actuation inhaler Inhale 1 puff 2 (two) times a day. Rinse mouth with water after use to reduce aftertaste and incidence of candidiasis. Do not swallow. 10.6 g 11 05/22/2024 fluticasone propionate (Flonase) 50 mcg/actuation nasal spray Administer 2 sprays into each nostril daily. 16 g 04/10/2024 hydroCHLOROthiaz patricia (HydroDiuril) 25 mg tablet Take 1 tablet (25 mg total) by mouth daily. 90 tablet 3 04/10/2024 levalbuterol (Xopenex HFA) 45 mcg/actuation inhaler Inhale 2 puffs every 6 (six) hours as needed for wheezing. 1 each 11 04/10/2024 loratadine (Claritin) 10 mg tablet Take 1 tablet (10 mg total) by mouth daily as needed for allergies. 30 tablet 3 05/22/2024 metoprolol succinate (Toprol XL) 25 mg 24 hr tablet Take 1 tablet (25 mg total) by mouth daily. Do not crush or chew. 90 tablet 3 05/22/2024 naltrexone (Depade) 50 mg tablet Take 1 tablet (50 mg total) by mouth daily. 100 tablet 3 07/03/2024 omeprazole (PriLOSEC) [address] capsule Take 1 capsule (20 mg total) by mouth 2 (two) times a day before morning and evening meals. 180 capsule 2 05/22/2024 tacrolimus (Protopic) 0.1 % ointment Apply 1 Application topically 2 (two) times a day. Apply to affected areas on eyebrows and eyelash line. 30 g 3 06/22/2024 documented as of this encounter Plan of Treatment Upcoming Encounters Date Type Department Care Team (Latest Contact Info) Description 08/28/2024 9:40 AM CDT Office Visit Department of Family Medicine, [facility], in [address] [phone] Lynn Jacobs M.D. 300 [place] [phone] 09/07/2024 3:45 PM CDT Office Visit Department of Otorhinolaryngology in [place], [place] [address] [place] [phone] Julieta Brice M.D. [address] [place] [address] 09/22/2024 10:00 AM CDT Appointment Department of Cardiovascular Diseases in [place], [place] 300 [place] [phone] Yanick Cartwright APRN, C.N.P. [address] [place] [address] Discharge Disposition: Home or Self Care 09/22/2024 11:20 AM CDT Appointment Department of Laboratory Medicine in [place], [place] [address] [place] [address] Yanick Cartwright APRN, C.N.P. [address], [place] [address] 10/06/2024 7:30 AM CDT Clinical Communication Virtual Review in [place], [place] [address] [place] [address] 10/11/2024 2:50 PM CDT Comprehensive Visit Division of Gastroenterology in [place], [place] [address] [place] [address] Krishan Jeffrey M.B.B.S. [address] [place] [address] 12/04/2024 2:00 PM CDT Office Visit Department of Family Medicine, [facility], in [place], [place] [address], [place] [address] Wendy Robles APRN, C.N.P. [address] [place] [address] documented as of this encounter Procedures Procedure Name Priority Date/Time Associated Diagnosis Comments CHICKEN SERUM PROTEINS, IGE, S Routine 08/04/2024 10:44 AM CDT Rhinitis Allergic TURKEY FEATHERS, IGE, S Routine 08/05/19 10:44 AM CDT Rhinitis Allergic MOUSE SERUM PROTEIN, IGE, S Routine 08/04/2024 10:44 AM CDT Rhinitis Allergic CHICKEN DROPPINGS, IGE, S Routine 08/04/2024 10:44 AM CDT Rhinitis Allergic MOUSE EPITHELIUM, IGE, S Routine 08/04/2024 10:44 AM CDT Rhinitis Allergic CHICKEN FEATHERS, IGE, S Routine 08/04/2024 10:44 AM CDT Rhinitis Allergic MOUSE U PROTEIN, IGE, S Routine 08/05/19 10:44 AM CDT Rhinitis Allergic IMMUNOGLOBULIN E (IGE), S Routine 08/04/2024 10:44 AM CDT Rhinitis Allergic documented in this encounter Results * Immunoglobulin E (IgE) (08/04/2024 10:44 AM CDT) Immunoglobulin E (IgE), S 76.2 <=214 kU/L 08/07/2024 6:17 PM CDT [facility] Blood (Blood, Venous) 08/04/2024 10:44 AM CDT 08/07/2024 2:24 PM CDT Reed Schmid M.D. LAB BLOOD ADD-ON Final Resu lt [facility] SUPPORT TEN SLEEP [address] [place] [address] Formerly named [facility] [address] [place] [address] * Mouse Urine Protein, IgE (08/04/2024 10:44 AM CDT) Pathologist [facility] Mouse Urine Protein, IgE <0.10 <0.70 kU/L 08/07/2024 6:17 PM CDT [facility] Comment:Class 0 (Negative <0 .10) Blood (Blood, Venous) 08/04/2024 10:44 AM CDT 08/07/2024 2:24 PM CDT Reed Schmid M.D. LAB BLOOD ADD-ON Final Resu lt [facility] [address] [place] [address] Formerly named [facility] [address] [place] [address] * Mouse Serum Protein, IgE (08/04/2024 10:44 AM CDT) Mouse Serum Protein, IgE <0.10 <0.70 kU/L 08/07/2024 6:17 PM CDT [facility] Comment:Class 0 (Negative <0 .10) Blood (Blood, Venous) 08/04/2024 10:44 AM CDT 08/07/2024 2:24 PM CDT Reed Schmid M.D. LAB BLOOD ADD-ON Final Resu lt Performing Organization Address City/[facility] Co de Phone Number [facility] [address] [place] [address] Formerly named [facility] [address] [place] [address] * Mouse Epithelium, IgE (08/04/2024 10:44 AM CDT) Mouse Epithelium, IgE <0.10 <0.70 kU/L 08/07/2024 6:16 PM CDT [facility] Comment:Class 0 (Negative <0 .10) Blood (Blood, Venous) 08/04/2024 10:44 AM CDT 08/07/2024 2:24 PM CDT Reed Schmid M.D. LAB BLOOD ADD-ON Final Resu lt Performing Organization Address City/[facility]/ZIP Co de Phone Number [facility] [address] [place] [address] Formerly named [facility] [address] [place] [address] * [place] Feathers, IgE (08/04/2024 10:44 AM CDT) [place] Feathers, IgE <0.10 <0.70 kU/L 08/07/2024 6:16 PM CDT [facility] Comment:Class 0 (Negative <0 .10) Blood (Blood, Venous) 08/04/2024 10:44 AM CDT 08/07/2024 2:24 PM CDT Reed Schmid M.D. LAB BLOOD ADD-ON Final Resu lt Performing Organization Address [facility] Co de Phone Number [facility] [address] [place] [address] Formerly named [facility] [address] [place] [address] * Chicken Serum Proteins, IgE (08/04/2024 10:44 AM CDT) Pathologist [facility] Chicken Serum Proteins, IgE <0.10 <0.70 kU/L 08/07/2024 6:28 PM CDT [facility] Comment: Class 0 (Negative <0.10) ----ADDITIONAL INFORMATION---- This test was developed and its performance characteristics determined by [facility] in a manner consistent with CLIA requirements. This test has not been cleared or approved by the U.S. Food and Drug Administration. Blood (Blood, Venous) 08/04/2024 10:44 AM CDT 08/07/2024 2:24 PM CDT Reed Schmid M.D. LAB BLOOD ADD-ON Final Resu lt Performing Organization Address City/[facility]/ZIP Co de Phone Number [facility] [address] [place] [address] Formerly named [facility] [address] [place] [address] * Chicken Droppings, IgE (08/04/2024 10:44 AM CDT) Chicken Droppings, IgE <0.10 <0.70 kU/L 08/07/2024 6:27 PM CDT [facility] Comment: Class 0 (Negative <0.10) ----ADDITIONAL INFORMATION---- This test was developed and its performance characteristics determined by [facility] in a manner consistent with CLIA requirements. This test has not been cleared or approved by the U.S. Food and Drug Administration. Blood (Blood, Venous) 08/04/2024 10:44 AM CDT 08/07/2024 2:24 PM CDT Reed Schmid M.D. LAB BLOOD ADD-ON Final Resu lt Performing Organization Address [facility]/ZIP Co de Phone Number [facility] [address] [place] [address] Formerly named [facility] [address] [place] [address] [place] [address] * Chicken Feathers, IgE (08/04/2024 10:44 AM CDT) Chicken Feathers, IgE <0.10 <0.70 kU/L 08/07/2024 6:16 PM CDT [facility] Comment:Class 0 (Negative <0 .10) Blood (Blood, Venous) 08/04/2024 10:44 AM CDT 08/07/2024 2:24 PM CDT Result [facility] Reed Schmid M.D. LAB BLOOD ADD-ON Final Resu lt Performing Organization Address [facility] Co de Phone Number [facility] [address] [place] [address] [place] [address] documented in this encounter Visit Diagnoses Diagnosis Rhinitis Allergic documented in this encounter Additional Health Concerns Assessment Noted Time PHQ-9 Depression Total Score: 10 025 11:16 AM INSPECTOR FLOOR SUB ASSEMBLY documented as of this encounter Care Teams Blending Plant Operator Relationship Specialty Start Date End Date Lynn Jacobs M.D. [address] [place] [address] [place] [address] PCP - General Family Medicine 04/03/24 documented as of this encounter
--- OUTSIDE RECORDS SUMMARY | 2024-08-25 16:57 | XMS_ITS | Encounter Summary ---
Author Organization [facility] Address [address] [place] [address] Care Team Providers Care Animal Ride Manager Name Role Phone Lynn Jacobs M.D. Primary Care Provider [phone] Reason for Visit * Reason Comments Consult Allergic Rhinitis Shortness of Breath * Outpatient (Routine) - Closed Specialty Diagnoses / Procedures Referred By Contac t Referred To Contact Allergy and Immunology Diagnoses Allergy Seasonal Wendy Robles APRN, C.N.P. [address] [address] Phone: tel: fax: [facility] Region Referral ID Status Reason Start Date Expiration Date V isits Requested Visits Authorized [id number] Closed Specialty Services Required 06/22/2024 12/22/2025 1 1 Encounter Details Date Type Department Care Team (Latest Contact Info) Description 08/04/2024 9:15 AM CDT Comprehensive Visit Department of Allergy in [place], [place] [address] [place] [phone] Reed Schmid M.D. [address] [place] [phone] Rhinitis Allergic Dust Mite (Primary Dx); Motion Vocal Fold Paradoxical; Rhinitis Allergic Due To Outdoor Pollen Discharge Disposition: Home or Self Care Social History Tobacco Use Types Packs/Day Years Used Date Smoking Tobacco: Never Smokeless Tobacco: Never Alcohol Use Standard Drinks/Week Comments No 0 (1 standard drink = 0.6 oz pur e alcohol) [facility] Utilities Answer Date Recorded In the past 12 months has e [employer], oil, or water [employer] threatened to shut off services in your [...] any clubs o r organizations such as orthodox groups, unions, fraternal or athletic groups, or [...] Answer Date Recorded PHQ-2 Score 5 06/19/2024 [place] [place] [facility] - Occupational Stress [...] your living situation today? [facility] 06/28/2023 Education Answer Date Recorded What is the highest level of school you have completed or the highest degree you have received? GED or equivalent Comments No Sex and Gender Information Value Date Recorded Sex Assigned at Female 06/28/2023 7:21 PM DISPATCHER CLERK Legal Sex Female 2:56 PM DISPATCHER CLERK Gender Identity Female 07/01/2019 7:57 PM DISPATCHER CLERK Sexual Orientation Straight 07/01/2019 7: 57 PM DISPATCHER CLERK documented as of this encounter Last Filed Vital Signs Vital Sign Reading Time Taken Comments Blood Pressure - - Pulse - - Temperature 36.4 C (97.5 F) 08/04/2024 9:13 AM CDT Respiratory Rate - - Oxygen Saturation - - Inhaled Oxygen Concentration - - Weight 77.5 kg (170 lb 13.7 oz) 08/04/2024 9:13 AM CDT Height - - Body Mass Index 30.89 07/03/2024 11:14 AM DISPATCHER CLERK documented in this encounter Consult Notes * Reed Schmid M.D. - 08/04/2024 9:15 AM CDT SUBJECTIVE REFERRING PROVIDER Wendy Robles APRN, C.N.P. CHIEF COMPLAINT / REASON FOR VISIT Chief Complaint Patient presents with Consult Allergic Rhinitis Shortness of Breath HISTORY OF PRESENT ILLNESS Liv Evans is a very pleasant 34 y.o. female who presents for consultation at the request of Wendy Robles APRN, C.N.P. for evaluation of Consult, Allergic Rhinitis, and Shortness of Breath She is accompanied by her today. An in-person industrial design intern was present for theentire visit. She reports an approximate 2-3 year history of intermittent episodes of shortness of breath that she describes as inability to take a deep breath in. She reports that she will develop shortness of breath and she characterizes the shortness of breath as inability to take a deep breath in. She reports that symptoms are sporadic and unpredictable. She reports that symptoms occur on a daily basis. However, she does report that symptoms worsen with exercise, stress, and when she is inside of her home. Symptoms occur on a daily basis and typically last a few minutes at a time. Spirometry performed on 07/03/2024 revealed normal baseline spirometry. She has previously been prescribed inhaled corticosteroids with QVAR and short-acting beta agonists including both albuterol and levalbuterol. She denies significant symptom relief with inhaled corticosteroids or short-acting beta agonist. She reports that she has had a few episodes of shortness of breath already today. She reports a chronic and many year history of intermittent nasal symptoms which occur sporadicallyon a perennial basis without any seasonal worsening. Nasal symptoms include nasal congestion and anterior clear rhinorrhea. Nasal symptoms are not correlated or associated to breathing symptoms. She denies any nasal symptoms today. She reports that nasal symptoms improve with fluticasone nasal spray 2 sprays each nostril once daily as needed. She reports that nasal symptoms overall well-controlled on fluticasone nasal spray 2 sprays each nostril once daily as needed. She reports that they have 4 snakes in the home and they feed their mice snakes. She reports they have 3 turtles in the homes. S he reports they have 2 cats and 3 dogs in the home. She reports they have 14 outdoor chickens and 1outdoor turkey. She reports their home was built in the . She denies any mold damage in their home. The following portions of the patient's history were reviewed: allergies REVIEW OF SYSTEMS Eyes: Denies itchy, watery eyes. Nose: Denies nasal congestion, rhinorrhea, sinus pressure, loss of smell. Throat: Denies sore throat, postnasal drainage. Respiratory: Positive for shortness of breath and inability to take a deep breath in OBJECTIVE Temp 36.4 ??C (Temporal) Wt 77.5 kg BMI 30.89 kg/m?? PF Readings from Last 3 Encounters: No data found for PF PHYSICAL EXAMINATION General: Alert, in no apparent distress. Head: Normocephalic, atraumatic. Eyes: No lid edema, no conjunctival injection. Nose: Septum midline, pink nasal mucosa, no discharge, no turbinate hypertrophy, no polyps appreciated. Throat: Moist mucosa, no lesions, no postnasal drainage, no tonsillar enlargement, no exudates. Respiratory: Clear to auscultation bilaterally with no wheezing, rhonchi, or crackles. Psychiatric: Mood, affect, and mentation within normal limits. DIAGNOSTICS I personally reviewed aeroallergen skin testing performed today. There was an appropriate positive histamine control and negative glycerin control. Percutaneous aeroallergen skin testing performed on08/04/2024 revealed sensitization to DP dust mite, DF dust mite, Bermuda grass, and quack grass. ASSESSMENT / PLAN #1 Motion Vocal Fold Paradoxical #2 Rhinitis Allergic Dust Mite - Chicken Feathers, IgE; Future; Expected date: 08/04/2024 - Chicken Droppings, IgE; Future; Expected date: 08/04/2024 - Chicken Serum Proteins, IgE; Future; Expected date: 08/04/2024 - [place] Feathers, IgE; Future; Expected date: 08/04/2024 - Mouse Epithelium, IgE; Future; Expected date: 08/04/2024 - Mouse Serum Protein, IgE; Future; Expected date: 08/04/2024 - Mouse Urine Protein, IgE; Future; Expected date: 08/04/2024 - Immunoglobulin E (IgE); Future; Expected date: 08/04/2024 #3 Rhinitis Allergic Due To Outdoor Pollen - Allergy and Immunology - General consult (clinic) Liv Evnas is a 34-year-old female who is referred to the allergy clinic today for evaluation of allergic rhinoconjunctivitis and shortness of breath with episodic symptoms of inability to take adeep inhalation suspicious of paradoxical vocal fold motion disorder. 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 Symptoms can worsen with exercise and stress. Symptoms occur on a daily basis and typically last a few minutes at a time. Spirometry performed on 07/03/2024 revealed normal baseline spirometry. She has previously been prescribed inhaled corticosteroids with QVAR and short-acting beta agonist including both albuterol and levalbuterol without significant symptom relief. Presentation does not seem consistent with asthma. In the setting of symptoms predominantly being inability to take a deep breath in and symptoms worsening with exercise and stress, p resentation seems consistent with paradoxical vocal fold motion disorder. Would recommend evaluation by speech language pathology and/or ENT for evaluation and treatment of paradoxical vocal fold motion disorder. Will defer ordering consultation for paradoxical vocal fold motion disorder to speech language pathology and/or ENT to primary care provider. Sent a message to primary care provider regarding potential referral for evaluation of paradoxical vocal fold motion disorder. # Allergic rhinitis, perennial without seasonal worsening, not well controlled # Percutaneous aeroallergen skin testing performed on 08/04/2024 revealed sensitization to DP dust mite, DF dust mite, Bermuda grass, and quack grass. She has a chronic and many year history of intermittent nasal symptoms which occur sporadically on a perennial basis without any seasonal worsening. Nasal symptoms include nasal congestion and anterior clear rhinorrhea. Nasal symptoms are not correlated or associated to breathing symptoms. Nasal symptoms are currently well-controlled today. Percutaneous aeroallergen skin testing performed on 08/04/2024 revealed sensitization to DP dust mite, DF dust mite, Berm[place] grass, and quack grass. Symptoms of nasal congestion and anterior clear rhinorrhea which occur on a perennial basis without any seasonal worsening is consistent with allergic rhinitis in the setting of allergic sensitization to dust mite. In addition, she also has four snakes in the home and they feed their snakes mice. Recommendserum specific IgE testing to mouse epithelium, serum proteins, and urine protein to evaluate for IgE mediated sensitization to mice. Also, they have chickens and turkeys and recommend further serum specific IgE testing to chicken droppings, chicken feathers, chicken serum proteins, and turkey feathers to evaluate for IgE mediated sensitization to chicken and turkey. Nasal symptoms are currently well-controlled on fluticasone nasal spray 2 sprays each nostril once daily as needed. Recommend to continue fluticasone nasal 2 sprays each nostril once daily. Addendum: I reviewed laboratory evaluation revealed total serum IgE of 76.2 KU/L. Chicken droppings IgE, chicken feathers IgE, chicken serum proteins IgE, mouse epithelium IgE, mouth serum protein IgE, mouse urine protein IgE, and turkey feathers IgE was within normal limits and undetectable at less than 0.10. Follow Up: Recommend follow up as needed Reed Schmid M.D. documented in this encounter Plan of Treatment Upcoming Encounters Date Type Department Care Team (Latest Contact Info) Description 08/28/2024 9:40 AM CDT Office Visit Department of Family Medicine, [facility], in [place], [place] [address] [place] [phone] Lynn Jacobs M.D. [address] [place] [phone] 09/07/2024 3:45 PM CDT Office Visit Department of Otorhinolaryngology in [place], [place] [address] [place] [phone] Julieta Brice M.D. [address] [place] [phone] 09/22/2024 10:00 AM CDT Appointment Department of Cardiovascular Diseases in [place], [place] [address] [place] [phone] Yanick Cartwright APRN, C.N.P. [address] [place] [phone] Discharge Disposition: Home or Self Care 09/22/2024 11:20 AM CDT Appointment Department of Laboratory Medicine in [place], [place] [address] [place] [phone] Yanick Cartwright APRN, C.N.P. [address] [phone] 10/06/2024 7:30 AM CDT Clinical Communication Virtual Review in [place], [place] [address] [place] [address] 10/11/2024 2:50 PM CDT Comprehensive Visit Division of Gastroenterology in [place], [place] [address] [place] [phone] Krishan Jeffrey M.B.B.S. [address] [place] [phone] 12/04/2024 2:00 PM CDT Office Visit Department of Family Medicine, [facility], in [place], [place] [address] [place] [phone] Wendy Robles APRN, C.N.P. [address] [phone] documented as of this encounter Results * Immunoglobulin E (IgE) (08/04/2024 10:44 AM CDT) Immunoglobulin E (IgE), S 76.2 <=214 kU/L 08/07/2024 6:17 PM CDT [facility] Blood (Blood, Venous) 08/04/2024 10:44 AM CDT 08/07/2024 2:24 PM CDT Reed Schmid M.D. LAB BLOOD ADD-ON Final Resu lt Performing Organization Address City/[facility]/ZIP Co de Phone Number [facility] [address] [place] [address] [facility] [address] [place] [address] * Mouse Urine Protein, IgE (08/04/2024 10:44 AM CDT) Mouse Urine Protein, IgE <0.10 <0.70 kU/L 08/07/2024 6:17 PM CDT [facility] Comment:Class 0 (Negative <0 .10) Blood (Blood, Venous) 08/04/2024 10:44 AM CDT 08/07/2024 2:24 PM CDT Result [facility] Reed Schmid M.D. LAB BLOOD ADD-ON Final Resu lt Performing Organization Address [facility] Co de Phone Number [facility] [address] [place] [address] [facility] [address] [place] [address] * Mouse Serum Protein, IgE (08/04/2024 10:44 AM CDT) Mouse Serum Protein, IgE <0.10 <0.70 kU/L 08/07/2024 6:17 PM CDT [facility] Comment:Class 0 (Negative <0 .10) Blood (Blood, Venous) 08/04/2024 10:44 AM CDT 08/07/2024 2:24 PM CDT Reed Schmid M.D. LAB BLOOD ADD-ON Final Resu lt [facility] [address] [place] [address] [facility] [address] [place] [address] * Mouse Epithelium, IgE (08/04/2024 10:44 AM CDT) Mouse Epithelium, IgE <0.10 <0.70 kU/L 08/07/2024 6:16 PM CDT [facility] Comment:Class 0 (Negative <0 .10) Blood (Blood, Venous) 08/04/2024 10:44 AM CDT 08/07/2024 2:24 PM CDT Reed Schmid M.D. LAB BLOOD ADD-ON Final Resu lt [facility] [address] [place] [address] [facility] [address] [place] [address] * [place] Feathers, IgE (08/04/2024 10:44 AM CDT) [facility] [place] Feathers, IgE <0.10 <0.70 kU/L 08/07/2024 6:16 PM CDT [facility] Comment:Class 0 (Negative <0 .10) Blood (Blood, Venous) 08/04/2024 10:44 AM CDT 08/07/2024 2:24 PM CDT Reed Schmid M.D. LAB BLOOD ADD-ON Final Resu lt [facility] [address] [place] [address] [facility] [address] [place] [address] * Chicken Serum Proteins, IgE (08/04/2024 10:44 AM CDT) [facility] Chicken Serum Proteins, IgE <0.10 <0.70 kU/L 08/07/2024 6:28 PM CDT [facility] Comment: Class 0 (Negative <0.10) ----ADDITIONAL INFORMATION---- This test was developed and its performance characteristics determined by [facility] in a manner consistent with CLIA requirements. This test has not been cleared or approved by the U.S. Food and Drug Administration. Blood (Blood, Venous) 08/04/2024 10:44 AM CDT 08/07/2024 2:24 PM CDT Reed Schmid M.D. LAB BLOOD ADD-ON Final Resu lt Performing Organization Address [facility] Co de Phone Number [facility] [address] [place] [address] [facility] [address] [place] [address] * Chicken Droppings, IgE (08/04/2024 10:44 AM CDT) Chicken Droppings, IgE <0.10 <0.70 kU/L 08/07/2024 6:27 PM CDT [facility] Comment: Class 0 (Negative <0.10) ----ADDITIONAL INFORMATION---- This test was developed and its performance characteristics determined by [facility] in a manner consistent with CLIA requirements. This test has not been cleared or approved by the U.S. Food and Drug Administration. Blood (Blood, Venous) 08/04/2024 10:44 AM CDT 08/07/2024 2:24 PM CDT Reed Schmid M.D. LAB BLOOD ADD-ON Final Resu lt Performing Organization Address [facility] Co de Phone Number [facility] [address] [place] [address] [facility] [address] [place] [address] * Chicken Feathers, IgE (08/04/2024 10:44 AM CDT) Chicken Feathers, IgE <0.10 <0.70 kU/L 08/07/2024 6:16 PM CDT [facility] Comment:Class 0 (Negative <0 .10) Blood (Blood, Venous) 08/04/2024 10:44 AM CDT 08/07/2024 2:24 PM CDT Reed Schmid M.D. LAB BLOOD ADD-ON Final Resu lt [facility] [address] [place] [address] [facility] [address] [place] [address] documented in this encounter Visit Diagnoses Diagnosis Rhinitis Allergic Dust Mite- Primary Motion Vocal Fold Paradoxical Rhinitis Allergic Due To Outdoor Pollen documented in this encounter Additional Health Concerns Assessment Noted Time PHQ-9 Depression Total Score: 10 025 11:16 AM DISPATCHER CLERK documented as of this encounter Care Teams Animal Ride Manager Relationship Specialty Start Date End Date Lynn Jacobs M.D. [address] [place] [phone] PCP - General Family Medicine 04/03/24 documented as of this encounter
--- OUTSIDE RECORDS SUMMARY | 2024-08-25 16:57 | XMS_ITS | Encounter Summary ---
Author Organization [facility] Address [address] [place] [address] Care Team Providers Care Colors Custodian Name Role Phone Lynn Jacobs M.D. Primary Care Provider [phone] Encounter Details Date Type Department Care Team (Late st Contact Info) Description 08/09/2024 Results Follow-Up Department of Allergy in [place], [place] [address] [place] [phone] Reed Schmid M.D. [address] [place] [phone] Chicken Feathers, IgE, Chicken Droppings, IgE, Chicken Serum Proteins, IgE, Additional followed-up results: 5 Social History Tobacco Use Types Packs/Day Years Used Date Smoking Tobacco: Never Smokeless Tobacco: Never Alcohol Use Standard Drinks/Week Comments No 0 (1 standard drink = 0.6 oz pur e alcohol) [facility] Utilities Answer Date Recorded In the past 12 months has [facility] [employer] gas, oil, or water [employer] threatened to shut off services in your [...] How often do you attend chur or adventism services? 1 to 4 times per year 07/01/2019 Do you belong to any clubs o r organizations such as anabaptism groups, unions, fraternal or athletic groups, or [...] Answer Date Recorded PHQ-2 Score 5 06/19/2024 [facility] - [...] Answer Date Recorded Employment status Unemployed/not in [employer] paid workforce and NOT seeking employment 06/28/2023 Housing Stability Answer Date Recorded What is your living situation today? I have a [facility] place to live 06/28/2023 Education Answer Date Recorded What is the highest level of school you have completed or the highest degree you have received? GED or equivalent Comments No Sex and Gender Information Value Date Recorded Sex Assigned at Female 06/28/2023 7:21 PM YARD CLERK Legal Sex Female 2:56 PM YARD CLERK Gender Identity Female 07/01/2019 7:57 PM YARD CLERK Sexual Orientation Straight 07/01/2019 7: 57 PM YARD CLERK documented as of this encounter Plan of Treatment Upcoming Encounters Date Type Department Care Team (Latest Contact Info) Description 08/28/2024 9:40 AM CDT Office Visit Department of Family Medicine, [facility], in [place], [place] [address] [place] [phone] Lynn Jacobs M.D. [address] [place] [phone] 09/07/2024 3:45 PM CDT Office Visit Department of Otorhinolaryngology in [place], [place] [address] [place] [phone] Julieta Brice M.D. [address] [place] [phone] 09/22/2024 10:00 AM CDT Appointment Department of Cardiovascular Diseases in [address] [phone] Yanick Cartwright APRN, C.N.P. [address] [phone] Discharge Disposition: Home or Self Care 09/22/2024 11:20 AM CDT Appointment Department of Laboratory Medicine in [address] [phone] Yanick Cartwright APRN, C.N.P. [address] [phone] 10/06/2024 7:30 AM CDT Clinical Communication Virtual Review in [place], [place] 200 [place] [address] 10/11/2024 2:50 PM CDT Comprehensive Visit Division of Gastroenterology in [place], [place] [address] [place] [phone] Krishan Jeffrey M.B.BJairS. [address] [place] [phone] 12/04/2024 2:00 PM CDT Office Visit Department of Family Medicine, [facility], in [place], [place] [address] [place] [phone] Wendy Robles APRN, C.N.P. [address] [place] [phone] documented as of this encounter Visit Diagnoses Not on filedocumented in this encounter Additional Health Concerns Assessment Noted Time PHQ-9 Depression Total Score: 10 025 11:16 AM YARD CLERK documented as of this encounter Care Teams Colors Custodian Relationship Specialty Start Date End Date Lynn Jacobs M.D. [address] [place] [address] [place] [phone] PCP - General Family Medicine 04/03/24 documented as of this encounter
--- OUTSIDE RECORDS SUMMARY | 2024-08-25 16:57 | XMS_ITS | Clinical Summary ---
Author Organization [facility] Address [address] [place] [phone] Phone Care Team Providers Care Medical Information Specialist Name Role Phone Brinda Cordero MD Primary [...] 07/04/2012 Sensorineural hearing loss, bilateral 11/21/2009 Immunizations Immunization Administration Dates Next Due DTP 12/05/1993, 1,1988,1988,1988 [...] = 0.6 oz pur e alcohol) Occasional Comments Unknown Sex and Gender Information Value Date Recorded Sex Assigned at Not on file Legal Sex Female 12:26 PM MDT Gender Identity Not on file Sexual Orientation Not on file Last Filed Vital Signs Vital Sign Reading Time Taken Comments Blood Pressure 124/84 04/27/2023 11:01 AM WASTE COLLECTOR Pulse 88 04/27/2023 11:01 AM WASTE COLLECTOR Temperature 36.4 C (97.6 F) 04/27/2023 11:01 AM WASTE COLLECTOR Respiratory Rate 16 03/16/2023 9:33 AM CDT Oxygen Saturation 98% 03/16/2023 9:33 AM CDT Inhaled Oxygen Concentration - - Weight 77.3 kg (170 lb 6.4 oz) 04/27/2023 11:01 AM WASTE COLLECTOR Height 161.3 cm (5' 3.5) 04/27/2023 11:01 AM CS T Body Mass Index 29.71 04/27/2023 11:01 AM WASTE COLLECTOR Plan of Treatment Health Maintenance Due Date Last Done Comments Pneumococcal PPSV23 Highest Risk Adult (1 of 3 - PCV13) 2007 COVID-19 Vaccine ( - 2023-2 5 season) 2024 04/07/2022, 02/26/2021, 02/05/2021 Influenza Vaccine (Season Ended) 2025 04/07/2022, 08/22/2021, 03/17/2019, Additional history exists Insurance PM INTERFACED INSURANCE PM INTERFACED INSURANCE Care Teams Medical Information Specialist Relationship Specialty Start Date End Date Brinda Cordero MD [address] [place] [address] PCP - General Family Medicine 03/16/23
--- OUTSIDE RECORDS SUMMARY | 2024-08-25 16:57 | XMS_ITS | Encounter Summary ---
Author Organization [facility] Address [address] [place] [address] Care Team Providers Care Installation Helper Name Role Phone Lynn Jacobs M.D. Primary Care Provider [phone] Reason for Visit * Reason Comments Allergy Testing * Outpatient (Routine) - Closed Specialty Diagnoses / Procedures Referred By Peri gaytan Referred To Contact Diagnoses Rhinitis Allergic Procedures Northern Skin Test Reed Schmid M.D. [address] [address] Phone: tel: fax: [facility] Region Referral ID Status Reason Start Date Expiration Date Visits Re quested Visits Authorized [id number] Closed 07/17/2024 10/17/2025 1 1 Encounter Details Date Type Department Care Team (Latest Contact Info) Description 08/04/2024 9:30 AM CDT Clinical Support Department of Allergy in [place], [place] [address] [phone] Reed Schmid M.D. [address] [phone] Katherine Cha, RJairNJair [address] [phone] Rhinitis Allergic Discharge Disposition: Home or Self Care Social History Tobacco Use Types Packs/Day Years Used Date Smoking Tobacco: Never Smokeless Tobacco: Never Alcohol Use Standard Drinks/Week Comments No 0 (1 standard drink = 0.6 oz pur e alcohol) [facility] Utilities Answer Date Recorded In the past 12 months has th e [employer], oil, or water [employer] threatened to shut off services in your [...] any clubs o r organizations such as samaritan groups, unions, fraternal or athletic groups, or [...] Answer Date Recorded PHQ-2 Score 5 06/19/2024 [facility] of Occupat ional Health - Occupational Stress [...] Sex Assigned at Female 06/28/2023 7:21 PM AUXILIARY ENGINEER Legal Sex Female 2:56 PM AUXILIARY ENGINEER Gender Identity Female 07/01/2019 7:57 PM AUXILIARY ENGINEER Sexual Orientation Straight 07/01/2019 7: 57 PM AUXILIARY ENGINEER documented as of this encounter Procedure Notes * Katherine Cha R.N. - 08/04/2024 9:30 AM CDTAssociated Order(s): ALI BASIC SKIN TEST; ALI NORTHERN SKIN TEST Panel Skin Tests Flowsheet Row Clinical Support from 08/04/2024 in Department of Allergy in [place], [place] Controls Histamine (15 min W/F) 9x9w/f Glycerine (15 min W/F) 0 [place] Basic Adult Panel [place], White: 0 Tacho, White: 0 Birch: 0 Embarrass, Red: 0 Stone, Eastern: 0 [place]th[place]: 0 Bullhead: 0 Niobrara, Shagbark: 0 Maple: 0 Chandler, White: 0 [place], Black: 0 Lav[place]: 0 Gill, White: 0 Erie: 0 Zeigler, Samoan: 0 Calpine, Black: 0 Teller: 0 [place]: 7x7f [place] Blue: 0 Orchard: 0 Quack: 7x7f Red [place]: 0 Franco: 0 Cocklebur: 0 Kochia: 0 James's Quarters: 0 Steele Elder, Burweed: 0 Mugwort, Common: 0 Nettle: 0 Plantain, Moroccan: 0 Rough Pigweed: 0 [place] Citizen Thistle: 0 Short Ragweed: 0 [place], Sheep Red: 0 Cat Hair: 0 Cattle [...] 0 Rhizopus Stolonifer: 0 Stemphylium Solani: 0 documented in this encounter Plan of Treatment Upcoming Encounters Date Type Department Care Team (Latest Contact Info) Description 08/28/2024 9:40 AM CDT Office Visit Department of Family Medicine, [facility], in [address] [phone] Lynn Jacobs M.D. [address] [place] [address] 09/07/2024 3:45 PM CDT Office Visit Department of Otorhinolaryngology in [place], [place] [address] [place] [phone] Julieta Brice M.D. [address] [place] [phone] 09/22/2024 10:00 AM CDT Appointment Department of Cardiovascular Diseases in [address] [phone] Yanick Cartwright APRN, C.N.P. [address] [address] Discharge Disposition: Home or Self Care 09/22/2024 11:20 AM CDT Appointment Department of Laboratory Medicine in [address] [phone] Yanick Cartwright APRN, C.N.P. [address] [phone] 10/06/2024 7:30 AM CDT Clinical Communication Virtual Review in [place], [place] 200 [place] [phone] 10/11/2024 2:50 PM CDT Comprehensive Visit Division of Gastroenterology in [place], [place] [address] [place] [phone] Krishan Jeffrey M.B.B.S. [address] [place] [address] 12/04/2024 2:00 PM CDT Office Visit Department of Family Medicine, [facility], in [place], [place] [address] [place] [address] Wendy Robles APRN, C.N.P. [address] [place] [address] documented as of this encounter Procedures Procedure Name Priority Date/Time Associated Diagnosis Comments ALI NORTHERN SKIN TEST Routine 08/04/2024 9:30 AM CDT Rhinitis Allergic ALI BASIC SKIN TEST Routine 08/04/2024 9 :30 AM CDT Rhinitis Allergic documented in this encounter Results * Northern Skin Test (08/04/2024 9:30 AM CDT) Narrative MMODAL - 08/04/2024 9:30 AM CDT Katherine Cha R.N. 08/04/2024 10:55 AM Panel Skin Tests Flowsheet Row Clinical Support from 08/04/2024 in Department of Allergy in [place], [place] Controls Histamine (15 min W/F) 9x9w/f Glycerine (15 min W/F) 0 [place] Basic Adult Panel [place], White: 0 Tacho, White: 0 Birch: 0 Embarrass, Red: 0 Stone, Eastern: 0 [place]th[place]: 0 Bullhead: 0 Niobrara, Shagbark: 0 Maple: 0 Chandler, White: 0 [place], Black: 0 [place]: 0 Gill, White: 0 Erie: 0 Zeigler, Samoan: 0 [place], Black: 0 Teller: 0 [place]: 7x7f [place] Blue: 0 Orchard: 0 Quack: 7x7f Red [place]: 0 Franco: 0 Cocklebur: 0 Kochia: 0 James's Quarters: 0 Steele Elder, Burweed: 0 Mugwort, Common: 0 Nettle: 0 Plantain, Moroccan: 0 Rough Pigweed: 0 [place] Citizen Thistle: 0 Short Ragweed: 0 [place], Sheep Red: 0 Cat Hair: 0 Cattle [...] M.D. PROCEDURE/MINOR SURGICAL OR DERABLES Final Result [facility] NA * Basic Skin Test (08/04/2024 9:30 AM CDT) Narrative MMODAL - 08/04/2024 9:30 AM CDT Katherine Cha R.N. 08/04/2024 10:55 AM Panel Skin Tests Flowsheet Row Clinical Support from 08/04/2024 in Department of Allergy in [place], [place] Controls Histamine (15 min W/F) 9x9w/f Glycerine (15 min W/F) 0 [place] Basic Adult Panel [place], White: 0 Tacho, White: 0 Birch: 0 Embarr[place], Red: 0 Stone, Eastern: 0 [place]: 0 Bullhead: 0 Niobr[place], Shagbark: 0 Maple: 0 Chandler, White: 0 [place], Black: 0 [place]: 0 Gill, White: 0 Erie: 0 Zeigler, Samoan: 0 Calpine, Black: 0 Teller: 0 [place]: 7x7f [place] Blue: 0 Orchard: 0 Quack: 7x7f Red [place]: 0 Franco: 0 Cocklebur: 0 Kochia: 0 James's Quarters: 0 Steele Elder, Burweed: 0 Mugwort, Common: 0 Nettle: 0 Plantain, Moroccan: 0 Rough Pigweed: 0 [place] Citizen Thistle: 0 Short Ragweed: 0 [place], Sheep Red: 0 Cat Hair: 0 Cattle [...] Depression Total Score: 10 025 11:16 AM AUXILIARY ENGINEER documented as of this encounter Care Teams Installation Helper Relationship Specialty Start Date End Date Lynn Jacobs M.D. [address] [place] [address] [place] [phone] PCP - General Family Medicine 04/03/24 documented as of this encounter
--- OUTSIDE RECORDS SUMMARY | 2024-08-25 16:58 | XMS_ITS | Clinical Summary ---
Author Organization [facility] Address [address] [place] [id number] Care Team Providers Care Commercial Account Manager Name Role Phone Yinka Hankins MD Unavailable [phone] Brinda Cordero MD Primary Care Provider [phone] Mouna Marroquin RN Unavailable [phone] Allergies Active Allergy Reactions Criticality Noted Date Comments Latex Itching 01/04/2008 Pt reports a little tightness with breathing and itching Penicillins Hives 01/04/2008 Sulfamethoxazole-Trimethopr im 06/04/2008 Medications Mmdcgckn-Yo-Ywv -Fe-FA tab tablet Take 1 Tablet by mouth once daily. 0 2 Active omeprazole 20 mg tabletIndicatio ns:Nausea Take 1 Tablet (20 mg) by mouth once daily before a meal. 30 Tablet 2 Active IBUPROFEN ORAL Take by mouth. Active ACETAMINOPHEN ORAL Take by mouth. Activ e triamcinolone (ARISTOCORT; KENALOG) 0.1 % creamIndication s:Acute eczema Apply topically to affected area(s) three times daily. 28.4 g 4 Active Active Problems Problem Noted Date Diagnosed Date History of delivery, currently 04/24/2021 Overview (04/24/2021): PTB x2 Gestational diabetes mellitus (GDM) in second tr imester 04/23/2021 Essential hypertension 08/28/2019 Scoliosis of lumbar spine 12/16/2017 Back pain 12/16/2017 Fatty liver 01/13/2017 Overview (01/13/2017): noted on ULTRASOUND 12/2016 Neck pain w nl Cervical MRI from 10/201512/25/19 17 Headache in back of head 07/14/2016 Positive PAU (antinuclear antibody) 07/14/2016 Elevated sed rate 07/14/2016 Polycystic ovary syndrome 09/30/2015 Hematuria 06/06/2014 Overview (07/14/2016): Renal ULTRASOUND normal CT scan normal Cysto normal. Dermatitis 05/22/2013 Overview (05/22/2013): Bilateral breasts Deaf, nonspeaking 05/18/2013 Environmental allergies 07/04/2012 Sensorineural hearing loss, bilateral 11/21/2009 Gastritis Resolved Problems Problem Noted Date Diagnosed Date Resolved Date Hypertension affecting 04/07/2022 04/07/2022 contractions 07/28/2021 022 Chronic hypertension affecting 04/24/2021 04/07/2022 Obesity affecting , antepartum 04/24/2021 04/07/2022 [facility] Supervision of high-risk 03/11/2021 04/07/2022 Overview (03/11/2021): [facility] CONSULTATION ON 03/17/21 ALS lead etl developer needed REASON FOR CONSULT: hx PTD x 2, HTN, hx GDM, deafness Per notes, starting [employer] and cervical lengths at 16w TODAY'S APPOINTMENT: MD Consultation PRIMARY DIAGNOSIS: 30 y.o. Estimated Date of Delivery: 09/10/21 Deaf - non speaking PCOS Infertility HTN - no meds Asthma Hx Migraines OB Hx: 2019 PTD 35w6d - PPROM, GDMA1 2013 PTD 34w1d - PPROM 30w4d (transfer from [facility] - [facility] assumed care) LAST GROWTH: 03/10/21 13w5d 01/21/21 6w2d REFERRING PHYSICIAN/PHONE/LAST UPDATE: Brinda Cordero MD [place] Primary MD approves scheduling of recommended ultrasounds/testing: Yes SPECIALISTS/CONSULTS: Include: Specialty MD Clinic Name Phone# [place] and ADDED TO PATIENT CARE TEAM Yes CARE COORDINATION: GENETICS: declined PROCEDURES: PERTINENT LABS: Labs reviewed? Yes Normal? Yes 03/05/21 A1C 5.4; PreE labs WNL x PCR 0.1 PAU pos 2017 PERTINENT MEDS: Diane to start at 16w Preferred delivery location: PLAN OF CARE: 02/03/2021 04/07/2022 Overview (07/03/2021): Component Latest Ref Rng & Units 06/02/2021 06/03/2021 IAN SPECIES Negative Negative IAN GLABRATA Negative Negative TRICHOMONAS VVA Negative Negative BACTERIAL VAGINOSIS Negative Negative HEMOGLOBIN 12.0 - 16.0 g/dL 11.7 (L) MCV 80 - 100 fL 93 TREPONEMA PALLIDUM Negative Negative Estimated Date of Delivery: 09/10/21 Patient's last menstrual period was 11/04/2020 (approximate). Last Tdap- 06/23/2021 Last Flu vaccine- 03/17/2019 Glucose (GTT) result- Component Latest Ref Rng & Units 04/09/2021 GLUC YOSELIN,FAST (GEST) 65 - 95 mg/dL 81 GLUC YOSELIN,1HR (GEST) 65 - 180 mg/dL 184 (H) GLUC YOSELIN,2HR (GEST) 65 - 155 mg/dL 144 GLUC YOSELIN,3HR (GEST) 65 - 140 mg/dL 158 (H) 20 week US: IMPRESSION: Intrauterine at 20w 1d. presentation is Cephalic. EFW 429 grams, percentile: > 97. Growth parameters and estimated weight are large for gestational age, driven by the long bones No major structural anomalies identified. Views of the heart suboptimal due to maternal habitus and position. No markers for aneuploidy identified. Normal Deepest Vertical Pocket of amniotic fluid: 3.9 cm. Placental location: Posterior. There is no evidence of placenta previa. The transabdominal cervical length is 3.18 cm. No funneling is seen. Allergies Allergen Reactions Latex Possible reaction, not confirmed Penicillins Hives Septra [Sulfamethoxazole-Trimethoprim] OB History Para Term AB Living 3 2 0 2 0 2 SAB TAB Ectopic Multiple Live Births 0 0 0 0 2 # Outcome Date GA Lbr Dick/2nd Weight Sex Delivery Anes PTL Lv 3 Current 2 01/24/20 35w6d F Vag NONE Y ALBINO 1 06/12/13 34w1d 2.24 kg (4 lb 15 oz) F Vag ALBINO Comments: pPROM at 30 4/7 weeks Name: BG YUNIEL Apgar1: 8 Apgar5: 9 Create lab flowsheet for OB labs- Component Latest Ref Rng & Units 03/05/2021 03/05/2021 03/05/2021 9:54 AM 9:54 AM 9:54 AM ABORH O Rh Positive ANTIBODY SCREEN Negative Negative SPECIMEN EXPIRATION DATE/TIME 03/08/21 23:59 VARICELLA ZOSTER IGG ANTIBODY Negative 18.2 (L) RUBELLA IGG ANTIBODY HIV-1/HIV-2 ANTIBODY Non-Reactive Non-Reactive TREPONEMA PALLIDUM Negative Negative HEPATITIS C ANTIBODY Non-Reactive Non-Reactive HEMOGLOBIN A1C SCREENING <=6.4 % 5.4 Component Latest Ref Rng & Units 03/05/2021 03/05/2021 9:54 AM 9:54 AM ABORH ANTIBODY SCREEN Negative SPECIMEN EXPIRATION DATE/TIME VARICELLA ZOSTER IGG ANTIBODY RUBELLA IGG ANTIBODY Positive 8.77 HIV-1/HIV-2 ANTIBODY Non-Reactive TREPONEMA PALLIDUM Negative HEPATITIS C ANTIBODY Non-Reactive HEMOGLOBIN A1C SCREENING <=6.4 % Past Medical History: . Date Adjustment disorder with depressed mood 09/12/2010 Allergic rhinitis seasonal ASCUS on Pap smear 05/2008 +HPV Asthma with exercise/allergies, off meds since age 12 Bartholin gland cyst Chronic hypertension Fatty liver Gestational diabetes Headache Hearing impaired person mom's pregancy comp by varicella inf History of chicken pox Infertility, female Left ventricular enlargement Mild intermittent asthma 07/04/2012 Polycystic ovarian syndrome Scoliosis Past Surgical History: . Laterality Date BUNIONECTOMY Right 12/13/2018 COLPOSCOPY 06/2008 PATRICK I ESOPHAGOGASTRODUODENOSCOPY N/A 11/05/2020 HERNIA REPAIR 1994 bilateral LAP CHOLECYSTECTOMY 04/20/12 No data on file. Problems (from 01/10/21 to present) No problems associated with this episode. Zenaida Chamberlain RN.....02/03/2021 2:13 PM induced hypertension, antepartum 05/22/2020 04/24/2021 premature rupture of membranes (PPROM) delivered, current hospitalization 01/25/2020 04/24/2021 Vaginal delivery 01/25/2020 04/24/2021 Gestational diabetes mellitus (GDM) 12/27/2019 04/24/2021 High risk due to h istory of labor 09/27/2019 04/24/2021 Supervision of other normal 07/04/2019 04/07/2022 Pain in female pelvis 03/21/20182018 Neck pain 12/16/2017 09/08/2018 Female infertility 08/02/2017 2 Severe hypertension 12/24/2016 09/09/19 19 Chest pain in adult 12/24/2016 05/16/20 19 Musculoskeletal neck pain 12/24/2016 Neck pain 07/14/2016 09/08/2018 IUD (intrauterine device) in place 05/25/2014 08/28/2015 Overview (05/25/2014): Mirena 01/26/14 Vaginal delivery 06/12/2013 05/25/2014 delivery 06/12/2013 05/25/2014 Prolonged premature rupture of membranes 06/07/2013 05/25/2014 Back pain complicating 05/27/2013 07/08/2016 High-risk supervision 05/23/2013 05/25/2014 premature rupture of membranes (PPROM) delivered, current hospitalization 05/18/2013 05/23/2013 Threatened labor, antepartum 05/18/2013 06/12/2013 Premature rupture of membranes 05/18/2013 05/25/2014 , first 01/16/2013 05/25/2014 Adjustment disorder with depressed mood 09/12/2010 07/29/2017 Hearing impaired person 03/29/2008 07/0 12/2009 Overview (11/05/2009): Patient is Deaf and usesAmerican Sign Language (ASL), she is able to communicate through written Sinhala COVID-19 affecting in second trimester 04/07/2022 Large for gestational age fe tus affecting management of mother, antepartum, first trimester, not applicable or unspecified fetus 04/07/2022 Short cervix 04/07/2022 Immunizations Immunization Administration Dates Next Due COVID-19 vaccine (Buzzoek NTech 30mcg/0.3mL) 12YO+ BIVALENT PF, MDV 04/07/2022 COVID-19 vaccine (Buzzoek NTWowsai 30mcg/0.3mL) PF, MDV 02/26/2021,02/05/2021 DTP 12/05/1993, 1,1988,1988,1988 HIB HbOC (HibTITER) 10/05/1990 HPV 9 (Gardasil 9) 07/13/2012,10/17/2010, 011 Hepatitis A (Adult) 09/12/2010 Hepatitis A (Peds) 02/25/2001 Hepatitis B (Adult) 06/08/2001,11/10/2000,2000 Hepatitis B (Peds) 06/08/2001,11/10/2000, 001 Human Papilloma Virus Vaccine 07/13/2012, 011,08/18/2010 Influenza Virus, Unspecified 01/13/2017, 01/23/2016,02/28/2015,2013,01/12/2014,03/13/2013 Influenza, IIV3 (Age >=3 years) 03/13/2013 Influenza, IIV4 04/07/2022, 2,03/17/2019,2017,01/13/2017,01/23/2016,02/28/2015 Influenza, RIV3 (Age =>18 Years) 01/12/2014 MMR 11/17/1999,07/29/1989 Oral Polio Vaccine 12/05/1993, 1,1988,1988,1988 Td (Age >=7 Years) 11/17/1999 Td, Preservative Free (age > = 7 Years) 11/17/1999 Tdap 06/23/2021, 0,05/02/2013,2010 Tuberculin (PPD) 08/30/2000,10/10/1998 Typhoid (injectable) 02/25/2001 Varicella Vaccine 08/30/2000 Yellow Fever 02/25/2001 Family History Medical History Relation Name Comments Diabetes Father high cholestero l runs in family Hypertension Father Unknown Maternal Grandfather Alcoholism Maternal Grandmother Asthma Mother Other Mother leg and eye pro blems Unknown Paternal Grandfather Unknown Paternal Grandmother Relation Name Status Comments Brother Alive half sib Father May 2020 Maternal Grandfather Alive Maternal Grandmother Alive Mother Alive Paternal Grandfather Alive Paternal Grandmother Alive Sister 1 Alive half sib Sister 2 Alive half sib Social History Tobacco Use Types Packs/Day Years Used Date Smoking Tobacco: Never Smokeless Tobacco: Never Tobacco Cessation:Counseling Given: Yes Comments:mom smokes around her Alcohol Use Standard Drinks/Week Comments Yes 0 (1 standard drink = 0.6 oz pure alcohol) twice a month, 2 beers each time, socially Humiliation, Afraid, Rape, and Kick questionnair e Answer Date Recorded Fear of Current or Ex-Partner No Emotionally Abused No 07/04/2019 Physically Abused No 07/04/2019 Sexually Abused No 07/04/2019 PHQ-2 Answer Date Recorded PHQ-2 TOTAL SCORE 0 12/18/2021 [facility] - Occupational Stress Questionnaire Answer Date Recorded Feeling of Stress Only a little 07/04/2019 Exercise Vital Sign Answer Date Recorde d Days of Exercise per Week 0 days 2019 Minutes of Exercise per Session 0 min 07/04/2019 Social Connections Answer Date Recorded Do you often feel lonely or isolated from those around you? 4 03/01/2024 Financial Resource Strain Answer Date R ecorded Difficulty of Paying Living Expenses 3 03/01/2024 Difficulty of Paying Living Expenses Not on file 03/01/2024 Food Insecurity Answer Date Recorded Do you worry your food will run out before you are able to buy more? 1 03/01/2024 Transportation Needs Answer Date Record ed Does lack of transportation keep you from medica l appointments? 1 03/01/2024 Does lack of transportation keep you from work, meetings or getting things that you need? 1 03/01/2024 Housing Stability Answer Date Recorded What is your housing situation today? 2 03/01/2024 Utilities Answer Date Recorded Do you have trouble paying f or utilities (for example, heat, electricity, water, phone)? 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 Not on file Not on file Not on file Obstetrics History Para Term AB IAB SAB Ectopic Multiple Livin g Live Births 3 2 2 2 2 Date Outcome GA Total Labor Labor/2nd/3rd Weight Sex Type Anes PTL Albino A1 A5 Name Clin 2013 34w 1d 2.24 kg (4 lb 15 oz) F Vag Livin g 8 9 NEGRET E,BG Ahanya Delivery Location:[facility] Comments:pPROM at 30 4 /7 weeks 2019 35w 6d 2.27 kg (5 lb) F Vag None Y Livin g Nesbit n Delivery Location:[facility] ( [facility]) Last Filed Vital Signs Vital Sign Reading Time Taken Comments Blood Pressure 137/90 03/01/2024 8:47 AM CDT Pulse 79 03/01/2024 8:47 AM CDT Temperature 36.4 C (97.5 F) 02/03/2023 10:07 AM CDT Respiratory Rate 16 02/03/2023 10:38 AM CDT Oxygen Saturation 95% 03/01/2024 8:47 AM CDT Inhaled Oxygen Concentration - - Weight 78.7 kg (173 lb 6.4 oz) 03/01/2024 8:47 A M CDT Height 160 cm (5' 3) 02/02/2023 9:39 AM CDT Body Mass Index 30.72 02/02/2023 9:39 AM CDT Plan of Treatment Health Maintenance Due Date Last Done Comments Pneumococcal series for age 6-49 (1 of 2 - PCV) 2007 Pap test for age 21-65 05/16/2022 9, 01/14/2017, 12/09/2012, Additional history exists BMI (ht and wt on same day) for age 18+ 12/18/2022 12/18/2021, 01/10/2021, 08/14/2020, Additional history exists Depression screening for age 12+ 12/18/2022 12/18/2021, 12/17/2021, 12/17/2021, Additional history exists COVID-19 vaccine series ( season) 2024 04/07/2022, 04/07/2022, 02/26/2021, Additional history exists Influenza Vaccine (Season Ended) 2025 04/07/2022, 08/22/2021, 03/17/2019, Additional history exists Tetanus booster 06/23/2031 06/23/2021, 11/15, 05/02/2013, Additional history exists HIV for age 15-65 Completed 03/05/2021, , 12/09/2012, Additional history exists Hepatitis C screening for ag e 18-79 Completed 03/05/2021, 07/25/2019, 09/11/2016, Additional history exists Tdap Completed 06/23/2021, 11/15, 05/02/2013, Additional history exists Procedures Procedure Name Priority Date/Time Associated Diagnosis Comments ANTI HIV 1/2 Routine 03/05/2021 9:54 AM CDT Supervision of high risk in first trimester (HC) ANTI HCV Routine 03/05/2021 9:54 AM CDT Supervision of high risk in first trimester (HC) ENTRY LEVEL FINANCIAL ANALYST THIN PREP PAP SCREEN IMAGED Routine 05/16/2019 11:35 AM TAPE FOLDING MACHINE OPERATOR Pap smear for cervical cancer screening from Last 3 Months or Most Recently Relevant to Health Maintenance Results * ANTI HCV (03/05/2021 9:54 AM CDT) Pathologist [facility] HEPATITIS C ANTIBODY Non-React kushal Non-React kushal 03/05/2021 6:03 PM CDT [facility] Comment:Antibodies to HCV no t detected; does not exclude the possibility of exposure to HCV. Blood BLOOD SPECIMEN / Unknown Venipuncture / Unknown 03/05/2021 9:54 AM CDT 03/05/2021 9:54 AM CDT us Brinda Cordero MD SEND OUTS Final Resul t [facility] [address] [place] [address], [place] * ANTI HIV 1/2 (03/05/2021 9:54 AM CDT) HIV-1/HIV-2 ANTIBODY Non-Reacti ve Non-Reacti ve 03/05/2021 5:57 PM CDT [facility] Comment:HIV-1 p24 and HIV-1/ HIV-2 Ab not detected. Blood BLOOD SPECIMEN / Unknown Venipuncture / Unknown 03/05/2021 9:54 AM CDT 03/05/2021 9:54 AM CDT us Brinda Cordero MD SEND OUTS Final Resul t [facility] [address] [place] [address], [place] * ENTRY LEVEL FINANCIAL ANALYST THIN PREP PAP SCREEN IMAGED (05/16/2019 11:35 AM TAPE FOLDING MACHINE OPERATOR) Case Report Gynecologic Cytology Report Case: [id number] Authorizing Provider: Maribell Hong NP Collected: 05/16/2019 1135 Ordering Location: [facility] Received: 05/16/2019 1135 Clinic First Screen: Beckie Jay Specimen: ENTRY LEVEL FINANCIAL ANALYST ThinPrep Vial Screening, Cervical 05/25/2019 9:28 AM TAPE FOLDING MACHINE OPERATOR [facility] INTERPRETATION/ RESULT NEGATIVE FOR INTRAEPITHELIAL LESION OR MALIGNANCY (NIL) (none) 05/25/2019 9:28 AM TAPE FOLDING MACHINE OPERATOR [facility] at 0928 TAPE FOLDING MACHINE OPERATOR SPECIMEN ADEQUACY Satisfactory for evaluation Endocervical component present 05/25/2019 9:28 AM TAPE FOLDING MACHINE OPERATOR [facility] HPV REQUEST HPV if ASCUS 05/25/2019 9:28 AM TAPE FOLDING MACHINE OPERATOR [facility] Date of LMP 04/14/2019 05/25/2019 9:28 AM TAPE FOLDING MACHINE OPERATOR [facility] Last Pap Date 01/14/17 05/25/2019 9:28 AM TAPE FOLDING MACHINE OPERATOR [facility] Last Pap Result NIL 0 9:28 AM TAPE FOLDING MACHINE OPERATOR [facility] Abnormal Pap or [place] Bx in last 5 years No 05/25/2019 9:28 AM TAPE FOLDING MACHINE OPERATOR [facility] Menstrual Status Regular Periods 05/25/2019 9:28 AM TAPE FOLDING MACHINE OPERATOR [facility] [place] Bx Done Today No 05/25/2019 9:28 AM TAPE FOLDING MACHINE OPERATOR [facility] Additional Information None given 05/25/2019 9:28 AM TAPE FOLDING MACHINE OPERATOR [facility] Comment: Cytology is screened at [facility] - [address], [place] [address] and [facility] - [address], [place] [address] [facility] - [address] [place] [address] Interpreted at [facility] - [address], [place] [address] Automated Review Successful 05/25/2019 9:28 AM TAPE FOLDING MACHINE OPERATOR [facility] Comment:Specimen processed s uccessfully by automated correctional supervisor lieutenant device, ThinPrep Imaging System, [employer] Note The pap test is a screening technique, not a diagnostic procedure. It is used primarily to screen for squamous cancers and precursor lesions. Published studies have shown that it is subject to both false negative and false positive results. The pap test should not be used as the sole means to diagnose or exclude pre-malignant and malignant lesions. 05/25/2019 9:28 AM [email or web address] Other (Cervical) Non-Blood / Unknown 05/16/2019 11:35 AM TAPE FOLDING MACHINE OPERATOR 05/16/2019 11:35 AM TAPE FOLDING MACHINE OPERATOR Maribell Hong NP PATHOLOGY/CYTOLOGY Final Result [facility] [address] [place] [address], [place] from Last 3 Months or Most Recently Relevant to Health Maintenance Insurance MEDICARE PB ONLY MEDICARE PART B HB ONLY MEDICARE PART A HB ONLY MEDICARE PART B HB ONLY Advance Directives * Full Code (Latest Code Status on File) Date Activated Date Inactivated Comments 02/03/2023 7:36 AM 02/03/2023 1:34 PM Question Answer Comments Code Status Discussion: Reviewed Preferences * Full Code Date Activated Date Inactivated Comments 07/28/2021 9:21 AM 07/30/2021 2:15 PM Question Answer Comments Code Status Discussion: Other * Full Code Date Activated Date Inactivated Comments 06/27/2021 10:29 AM 06/28/2021 6:55 PM Question Answer Comments Code Status Discussion: Reviewed Preferences * Full Code Date Activated Date Inactivated Comments 11/05/2020 12:11 PM 11/05/2020 5:54 PM Question Answer Comments Code Status Discussion: Discussed * Full Code Date Activated Date Inactivated Comments 01/24/2020 8:43 AM 01/26/2020 8:03 PM Question Answer Comments Code Status Discussion: Discussed Care Teams Commercial Account Manager Relationship Specialty Start Date End Date Brinda Cordero MD [address] [place] [address] PCP - General Family Practice 02/26/21 Yinka Hankins MD [address] [place] [address] Rheumatology Rheumatology 12/10/15 Mouna Marroquin RN [address] [place] [id number] Prepress Supervisor 06/19/21
--- OUTSIDE RECORDS SUMMARY | 2024-08-25 16:58 | XMS_ITS | Encounter Summary ---
Author Organization [facility] Address [address] [place] [address] Care Team Providers Care Turning Machine Operator Helper Name Role Phone Lynn Jacobs M.D. Primary Care Provider [phone] Reason for Visit * Reason Onset Date Comments Appt Request 06/23/2024 Encounter Details Date Type Department Care Team (Latest Contact Info) Description 06/23/2024 Clinical Communication Department of Otorhinolaryngology in [place], [place] [address] [place] [phone] Julieta Brice M.D. [address] [place] [phone] Appt Request Social History Tobacco Use Types Packs/Day Years Used Date Smoking Tobacco: Never Smokeless Tobacco: Never Alcohol Use Standard Drinks/Week Comments No 0 (1 standard drink = 0.6 oz pur e alcohol) [facility] Utilities Answer Date Recorded In the past 12 months has [facility] [employer], gas, oil, or water [employer] threatened to shut off services in [...] How often do you attend chur or episcopal services? 1 to 4 times per year 07/01/2019 Do you belong to any clubs o r organizations such as baptism groups, unions, fraternal or athletic groups, or [...] Answer Date Recorded PHQ-2 Score 5 06/19/2024 [facility] Occupat ionms Health - Occupational Stress Questionnaire Answer Date [...] your living situation today? I have a [facility] place to live 06/28/2023 Education Answer Date Recorded What is the highest level of school you have completed or the highest degree you have received? GED or equivalent Comments No Sex and Gender Information Value Date Recorded Sex Assigned at Female 06/28/2023 7:21 PM GLASS CLEANER Legal Sex Female 2:56 PM GLASS CLEANER Gender Identity Female 07/01/2019 7:57 PM GLASS CLEANER Sexual Orientation Straight 07/01/2019 7: 57 PM GLASS CLEANER documented as of this encounter Plan of Treatment Upcoming Encounters Date Type Department Care Team (Latest Contact Info) Description 08/28/2024 9:40 AM CDT Office Visit Department of Family Medicine, [facility], in [place], [place] [address] [place] [phone] Lynn Jacobs M.D. [address] [place] [phone] 09/07/2024 3:45 PM CDT Office Visit Department of Otorhinolaryngology in [place], [place] [address] [place] [phone] Julieta Brice M.D. [address] [place] [phone] 09/22/2024 10:00 AM CDT Appointment Department of Cardiovascular Diseases in [address] [phone] Yanick Cartwright APRN, C.N.P. [address] [phone] Discharge Disposition: Home or Self Care 09/22/2024 11:20 AM CDT Appointment Department of Laboratory Medicine in [place], [place] [address] [place] [phone] Yanick Cartwright APRN, C.N.P. [address] [phone] 10/06/2024 7:30 AM CDT Clinical Communication Virtual Review in [place], [place] 200 [place] [phone] 10/11/2024 2:50 PM CDT Comprehensive Visit Division of Gastroenterology in [place], [place] [address] [place] [phone] Krishan Jeffrey M.B.BJairS. [address] [place] [phone] 12/04/2024 2:00 PM CDT Office Visit Department of Family Medicine, [facility] [place] [facility], in [place], [place] [address] [place] [phone] Wendy Robles APRN, C.N.P. [address] [phone] documented as of this encounter Visit Diagnoses Not on filedocumented in this encounter Additional Health Concerns Assessment Noted Time PHQ-9 Depression Total Score: 10 025 11:16 AM GLASS CLEANER documented as of this encounter Care Teams Turning Machine Operator Helper Relationship Specialty Start Date End Date Lynn Jacobs M.D. [address] [place] [phone] PCP - General Family Medicine 04/03/24 documented as of this encounter
--- OUTSIDE RECORDS SUMMARY | 2024-08-25 16:58 | XMS_ITS | Clinical Summary ---
Author Organization [facility] Address [address] [place] [address] Care Team Providers Care Mixing Machine Attendant Name Role Phone Lynn Jacobs M.D. Primary Care Provider [phone] Source Comments Patient records contain information from all sites at [facility]. For routine questions regarding patient records, call [phone] during business hours, M-F 8:00 AM - 5:00 PM Central Time. Record requests for emergency care only can be directed to [phone] at any time.[facility] Allergies Active Allergy Reactions Criticality Noted Date Comments Albuterol Palpitations 04/10/2024 Latex Other (see comments),Itching 01/04/2008 Possible reaction, not confirmed Pt reports a little tightness with breathing and itching Penicillins Hives (Reselect Reaction),Other (see comments),Rash Low 01/04/2008 Sulfa (Sulfonamide Antibiotics) Other (see comments) 11/12/2009 Unknown reaction Sulfamethoxazole Rash Low 08/16/2023 Sulfamethoxazole-Trimetho prim Other (see comments) 06/04/2008 Cerner list no reaction Trimethoprim Rash Low 08/16/2023 Medications * This document contains information received from the source organization and may not represent a complete record from that organization. levalbuterol (Xopenex HFA) 45 mcg/actuation inhaler Inhale 2 puffs every 6 (six) hours as needed for wheezing. 1 each 04/10/20 24 Active Additional Information Patient not taking.Reported on 08/04/2024 fluticasone propionate (Flonase) 50 mcg/actuation nasal spray Administer 2 sprays into each nostril daily. 16 g 04/10/20 Active Additional Information Patient not taking.Reported on 08/04/2024 hydroCHLOROthi azide (HydroDiuril) 25 mg tablet Take 1 tablet (25 mg total) by mouth daily. 90 tablet 3 04/10/20 Active Additional Information Patient not taking.Reported on 08/04/2024 beclomethasone (Qvar RediHaler) 80 mcg/actuation inhaler Inhale 1 puff 2 (two) times a day. Rinse mouth with water after use to reduce aftertaste and incidence of candidiasis. Do not swallow. 10.6 g 11 05/22/19 Active Additional Information Patient not taking.Reported on 08/04/2024 loratadine (Claritin) 10 mg tablet Take 1 tablet (10 mg total) by mouth daily as needed for allergies. 30 tablet 3 05/22/19 Active Additional Information Patient not taking.Reported on 08/04/2024 omeprazole (PriLOSEC) [address] capsule Take 1 capsule (20 mg total) by mouth 2 (two) times a day before morning and evening meals. 180 capsule 2 05/22/19 Active Additional Information Patient not taking.Reported on 08/04/2024 metoprolol succinate (Toprol XL) 25 mg 24 hr tablet Take 1 tablet (25 mg total) by mouth daily. Do not crush or chew. 90 tablet 3 05/22/19 Active Additional Information Patient not taking.Reported on 08/04/2024 tacrolimus (Protopic) 0.1 % ointment Apply 1 Application topically 2 (two) times a day. Apply to affected areas on eyebrows and eyelash line. 30 g 06/22/19 Active naltrexone (Depade) 50 mg tablet Take 1 tablet (50 mg total) by mouth daily. 100 tablet 3 07/03/19 Active Additional Information Patient not taking.Reported on 08/04/2024 acetaminophen (TYLENOL) 500 mg tablet Take 1,000 mg by mouth as needed. 01/26/20 025 Discontinued ibuprofen (ADVIL,MOTRIN) 600 mg tablet Take 600 mg by mouth as needed. 01/26/20 025 Discontinued Active Problems Patient Care Coordination No te Formatting of this note migh t be different from the original. OB education completed. Pre-reg completed at [facility]. LMP:05/18/2019 EDC:02/22/2020 provider:Dr. 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 Encounters * This document contains information received from the source organization and may not represent a complete record from that organization. Date Type Department Care Team Description 08/17/2024 Orders Only Department of Family Medicine, [facility], in [place], [place] [address] [place] [address] Lynn Jacobs M.D. 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 Chicken Feathers, IgE, Chicken Droppings, IgE, Chicken Serum Proteins, IgE, Additional followed-up results: 5 08/04/2024 10:37 AM CDT - 08/04/2024 11:59 PM CDT Hospital Encounter Department of Laboratory Medicine in [place], [place] [address] [place] [address] Reed Schmid M.D. Rhinitis Allergic Discharge Disposition: Home or Self Care 08/04/2024 9:30 AM CDT Clinical Support Department of Allergy in [place], [place] [address] [place] [address] Reed Schmid M.D. Juenger, Carrie J, RMarek Rhinitis Allergic Discharge Disposition: Home or Self Care 08/04/2024 9:15 AM CDT Comprehensive Visit Department of Allergy in [place], [place] [address] [place] [address] Reed Schmid M.D. Rhinitis Allergic Dust Mite (Primary Dx); Motion Vocal Fold Paradoxical; Rhinitis Allergic Due To Outdoor Pollen Discharge Disposition: Home or Self Care 07/28/2024 1:30 PM CDT Comprehensive Visit Department of Cardiovascular Diseases in [place], [place] [address] [place] [phone] Yanick Cartwright, CINTHIA, C.N.PJair Palpitations (Primary Dx); Dyspnea On Exertion; Hypertension Essential Primary 07/14/2024 Clinical Communication Department of Allergy in [place], [place] [address] [place] [phone] Emmy Caraballo, L.P.NJair Previsit Preparation 07/05/2024 2:01 PM COMPUTER TAPE LIBRARIAN - 07/05/2024 11:59 PM COMPUTER TAPE LIBRARIAN Hospital Encounter Department of Cardiovascular Diseases in [place], [place] [address] [place] [phone] Babar Jc M.D. Tachycardia Discharge Disposition: Home or Self Care 07/04/2024 Orders Only Department of Cardiovascular Diseases in [place], [place] [address] [place] [address] Babar Jc M.D. Tachycardia (Primary Dx) 07/03/2024 2:30 PM COMPUTER TAPE LIBRARIAN Diagnostic Division of Pulmonary Medicine in [place], [place] [address] [place] [phone] Krishan Jeffrey M.B.B.SJair Vasculitis (HCC); Dizziness; Dyspnea On Exertion 07/03/2024 11:30 AM COMPUTER TAPE LIBRARIAN Office Visit Division of Pulmonary Medicine in [place], [place] [address] [place] [phone] Krishan Jeffrey M.B.B.SJair Lung Interstitial Disease (HCC) 07/03/2024 7:23 AM COMPUTER TAPE LIBRARIAN - 07/03/2024 11:59 PM COMPUTER TAPE LIBRARIAN Hospital Encounter Department of Radiology, [facility], in [place], [place] [address] [place] [phone] Krishan Jeffrey M.B.B.SJair Lung Interstitial Disease (HCC) Discharge Disposition: Home or Self Care 07/03/2024 Clinical Communication Department of Cardiovascular Medicine in [place], [place] [address] [place] [phone] Planning And Analysis ManagerZuhair M.D. 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 Appt Request 06/23/2024 Orders Only Division of Pulmonary Medicine in [place], [place] [address] [place] [phone] Baqir, Krishan, M.B.B.S. Vasculitis (HCC) (Primary Dx) 06/22/2024 3:30 PM COMPUTER TAPE LIBRARIAN Comprehensive Visit Department of [facility], [facility], in [place], [place] [address] [place] [address] Wendy Robles APRN, C.N.P. Allergy Seasonal (Primary Dx); Alopecia Areata; Depression; Other Stressful Life Events Affecting Family And Household 06/09/2024 8:52 AM COMPUTER TAPE LIBRARIAN - 06/09/2024 11:59 PM COMPUTER TAPE LIBRARIAN Hospital Encounter Department of Laboratory Medicine in [address] [phone] Lynn Jacobs M.D. Pain In Joint; Leukocytosis Discharge Disposition: Home or Self Care 06/09/2024 Results Follow-Up Department of [facility], [facility], in [address] [phone] Lynn Jacobs M.D. Sedimentation Rate, Rheumatoid Factor, CBC with Differential, Blood, Additional followed-up results: 3 05/29/2024 1:15 PM COMPUTER TAPE LIBRARIAN Nurse Only Department of [facility], [facility], in [address] [phone] Lynn Jacobs M.D. Bailey, Jennifer L, L.P.NJair Nurse Visit 05/29/2024 Clinical Communication Department of [facility], [facility], in [address] [phone] Lynn Jacobs M.D. Nurse Visit from Last 3 Months Immunizations Immunization Administration Dates Next Due 4vHPV (discontinued) 10/17/2010,08/18/2010 9vHPV 07/13/2012 DTP 12/05/1993, 1,1988,1988,1988 DTaP (Daptacel) 12/05/1993, 1,1988,1988,1988 HepA Adult 09/12/2010,02/25/2001 HepA Pediatric/Adolescent 02/25/2001 HepB Adult 06/08/2001,11/10/2000,09/27/2000 HepB, Unspecified 06/08/2001, 2,11/10/2000,2000,09/27/2000,09/27/2000 Hib (HbOC) (discontinued) 10/05/1990 Hib (PRP-T) (ACTHIB, HIBERIX) 10/05/1990 IPV 12/05/1993, 1,1988,1988,1988 Influenza TIV (IM) 03/13/2013 Influenza, Seasonal, Injectable 03/13/2013 Influenza, Unspecified 01/13/2017,2015,02/28/2015,2013,03/13/2013 MMR 11/17/1999,07/29/1989 OPV 12/05/1993, 1,1988,1988,1988 PPD Test 08/30/2000,10/10/1998 Td (Adult), adsorbed 11/17/1999 Td Preservative Free (TENIVA C, DECAVAC) 11/17/1999 Td, (Adult) Unspecified 11/17/1999 Tdap 06/23/2021,12/06/2019,09/12/2010 TyVi (inj) 02/25/2001 Typhoid, Unspecified 02/25/2001 BRUNO 08/30/2000 YF 02/25/2001 influenza vaccine (FLUBLOK) (18 years or older) (PF) 01/12/2014 influenza vaccine quad (FLUZONE/FLUARIX) (6 months and older)(PF) 04/07/2022,08/22/2021,03/17/2019,2017,01/13/2017,01/23/2016,02/28/2015,0 01/12/2014,03/13/2013 Social History Tobacco Use Types Packs/Day Years Used Date Smoking Tobacco: Never Smokeless Tobacco: Never Tobacco Cessation:Counseling Given: Not Answered Alcohol Use Standard Drinks/Week Comments No 0 (1 standard drink = 0.6 oz pur e alcohol) [facility] Utilities Answer Date Recorded In the [...] any clubs o r organizations such as orthodoxy groups, unions, fraternal or athletic groups, or [...] Score 5 06/19/2024 [facility] Occupational Stress Questionnaire Answer Date Recorded [...] your living situation today? I have a [facility] [employer] [facility] to live 06/28/2023 Education Answer Date Recorded What is the highest level of school you have completed or the highest degree you have received? GED or equivalent Comments No Sex and Gender Information Value Date Recorded Sex Assigned at Female 06/28/2023 7:21 PM COMPUTER TAPE LIBRARIAN Legal Sex Female 2:56 PM COMPUTER TAPE LIBRARIAN Gender Identity Female 07/01/2019 7:57 PM COMPUTER TAPE LIBRARIAN Sexual Orientation Straight 07/01/2019 7: 57 PM COMPUTER TAPE LIBRARIAN Last Filed Vital Signs Vital Sign Reading Time Taken Comments Blood Pressure 137/94 07/28/2024 1:17 PM CDT Pulse 120 07/28/2024 1:14 PM CDT Temperature 36.4 C (97.5 F) 08/04/2024 9:13 AM CDT Respiratory Rate 16 05/22/2024 1:48 PM COMPUTER TAPE LIBRARIAN Oxygen Saturation 96% 07/03/2024 11: 14 AM COMPUTER TAPE LIBRARIAN Inhaled Oxygen Concentration - - Weight 77.5 kg (170 lb 13.7 oz) 08/04/2024 9:13 AM CDT Height 158.4 cm (5' 2.36) 07/03/2024 1 1:14 AM COMPUTER TAPE LIBRARIAN Body Mass Index 30.89 07/03/2024 11:14 AM COMPUTER TAPE LIBRARIAN Plan of Treatment Upcoming Encounters Date Type Department Care Team (Latest Contact Info) Description 08/28/2024 9:40 AM CDT Office Visit Department of Family Medicine, [facility], in [address] [phone] Lynn Jacobs M.D. [address] [place] [phone] 09/07/2024 3:45 PM CDT Office Visit Department of Otorhinolaryngology in [place], [place] [address] [place] [phone] Julieta Brice M.D. [address] [place] [phone] 09/22/2024 10:00 AM CDT Appointment Department of Cardiovascular Diseases in [address] [phone] Yanick Cartwright, CINTHIA, C.N.P. [address], [place] [address] Discharge Disposition: Home or Self Care 09/22/2024 11:20 AM CDT Appointment Department of Laboratory Medicine in [place], [place] [address] [place] [phone] Yanick Cartwright APRN, C.N.P. [address] [place] [phone] 10/06/2024 7:30 AM CDT Clinical Communication Virtual Review in [place], [place] [address] [place] [phone] 10/11/2024 2:50 PM CDT Comprehensive Visit Division of Gastroenterology in [place], [place] [address] [place] [phone] Krishan Jeffrey M.B.BJairS. [address] [place] [phone] 12/04/2024 2:00 PM CDT Office Visit Department of Family Medicine, [facility], in [place], [place] [address] [place] [phone] Wendy Robles APRN, C.N.P. [address] [phone] Health Maintenance Due Date Last Done Comments HIV Screening 1988 Hepatitis C Screening 1988 Visit: Medicare Annual Wellness 1988 Varicella Vaccines (2 of 2 - 2-dose childhood series) 11/22/2000 08/30/2000 Pneumococcal vaccine (0-49 y ears) (1 of 2 - PCV) 2007 Cervical/Vaginal Cancer Screening 05/16/2022 019 Glucose Monitoring for Gesta tional Diabetes 05/16/2023 COVID-19 Vaccine (2023-2 5 season) 2024 04/07/2022, 02/26/2021, 02/05/2021 Influenza Vaccine (#1) 2024 2, 08/22/2021, 03/17/2019, Additional history exists Lipid (Cholesterol) Screening 05/16/2024, 05/13/2018, 09/16/2015 Office Visit for Blood Press ure Check / Re-check 10/28/2024 07/28/2024 Visit: Chronic Disease, age 18+ 05/22/2025 Creatinine Level (Kidney Fun ction Test) 07/03/2025 07/03/2024, 05/22/2024, 06/29/2023, Additional history exists Potassium Level 07/03/2025 07/03/2024, 0 10/2024, 06/29/2023, Additional history exists Sodium Level 07/03/2025 07/03/2024, 0 10/2024, 06/29/2023, Additional history exists DTaP,Tdap,and Td Vaccines (9 - Td or Tdap) 06/23/2031 06/23/2021, 12/06/2019, 09/12/2010, Additional history exists IPV Vaccines Completed 12/05/1993, 11/15, 10/05/1990, Additional history exists Hepatitis B Vaccines Completed 06/08/2001, 06/08/2001, 06/08/2001, Additional history exists Hepatitis A Vaccines Completed 09/12/2010, 02/25/2001, 02/25/2001 HPV Vaccines Completed 07/13/2012, 07/2010, 08/18/2010 Depression Screening (Annual PHQ-2) Completed 06/19/2024 Procedures Procedure Name Priority Date/Time Associated Diagnosis Comments IMMUNOGLOBULIN E (IGE), S Routine 08/04/2024 10:44 AM CDT Rhinitis Allergic MOUSE U PROTEIN, IGE, S Routine 08/04/2024 10:44 AM CDT Rhinitis Allergic MOUSE SERUM PROTEIN, IGE, S Routine 08/04/2024 10:44 AM CDT Rhinitis Allergic MOUSE EPITHELIUM, IGE, S Routine 08/04/2024 10:44 AM CDT Rhinitis Allergic TURKEY FEATHERS, IGE, S Routine 08/04/2024 10:44 AM CDT Rhinitis Allergic CHICKEN SERUM PROTEINS, IGE, S Routine 08/04/2024 10:44 AM CDT Rhinitis Allergic CHICKEN DROPPINGS, IGE, S Routine 08/04/2024 10:44 AM CDT Rhinitis Allergic CHICKEN FEATHERS, IGE, S Routine 08/04/2024 10:44 AM CDT Rhinitis Allergic ALI NORTHERN SKIN TEST Routine 08/04/2024 9:30 AM CDT Rhinitis Allergic ALI BASIC SKIN TEST Routine 08/04/2024 9 :30 AM CDT Rhinitis Allergic HOLTER MONITOR - IN CLINIC AGENTS' RECORDS CLERK Routine 07/06/2024 2:29 PM COMPUTER TAPE LIBRARIAN Tachycardia PUL HOME OVERNIGHT OXIMETRY Routine 07/05/2024 Vasculitis (HCC) Dizziness Dyspnea On Exertion ARTERIAL BLOOD GAS - PULMONARY CLINIC Routine 07/03/2024 12:23 PM COMPUTER TAPE LIBRARIAN Vasculitis (HCC) Dizziness PULMONARY FUNCTION TESTS Routine 07/03/2024 9:16 AM COMPUTER TAPE LIBRARIAN Lung Interstitial Disease (HCC) PH, U Routine 07/03/2024 8:48 AM COMPUTER TAPE LIBRARIAN OSMOLALITY, U Routine 07/03/2024 8:48 AM COMPUTER TAPE LIBRARIAN DIPSTICK, U Routine 07/03/2024 8:48 AM COMPUTER TAPE LIBRARIAN MICROSCOPIC AUTOMATED Routine 07/03/2024 8:48 AM COMPUTER TAPE LIBRARIAN URINALYSIS WITH MICROSCOPIC Routine 07/03/2024 8:48 AM COMPUTER TAPE LIBRARIAN Lung Interstitial Disease (HCC) C-REACTIVE PROTEIN (CRP), S/P Routine 07/03/2024 8:44 AM COMPUTER TAPE LIBRARIAN Vasculitis (HCC) SEDIMENTATION RATE, B Routine 07/03/2024 8:44 AM COMPUTER TAPE LIBRARIAN Vasculitis (HCC) BASIC METABOLIC PANEL, S/P Routine 07/03/2024 8:44 AM COMPUTER TAPE LIBRARIAN Lung Interstitial Disease (HCC) CBC WITH DIFFERENTIAL, B Routine 07/03/2024 8:44 AM COMPUTER TAPE LIBRARIAN Lung Interstitial Disease (HCC) CT CHEST WITHOUT IV CONTRAST RAD - Routine (most inpatients and all outpatients) 07/03/2024 8:14 AM COMPUTER TAPE LIBRARIAN Lung Interstitial Disease (HCC) CBC WITH DIFFERENTIAL, B Routine 06/09/2024 9:04 AM COMPUTER TAPE LIBRARIAN Leukocytosis HLA-B27, B Routine 06/09/2024 9:04 AM COMPUTER TAPE LIBRARIAN Pain In Joint CYCLIC CITRULLINATED PEPTIDE ABS, IGG, S Routine 06/09/2024 9:04 AM COMPUTER TAPE LIBRARIAN Pain In Joint RHEUMATOID FACTOR, S/P Routine 06/09/2024 9:04 AM COMPUTER TAPE LIBRARIAN Pain In Joint SEDIMENTATION RATE, B Routine 06/09/2024 9:04 AM COMPUTER TAPE LIBRARIAN Pain In Joint ANTINUCLEAR ABS (PAU), S Routine 06/09/2024 9:04 AM COMPUTER TAPE LIBRARIAN Pain In Joint LIPID PANEL, S Routine 09/16/2015 11:30 AM CDT from Last 3 Months or Most Recently Relevant to Health Maintenance Results * Chicken Serum Proteins, IgE (08/04/2024 10:44 AM CDT) [facility] Chicken Serum Proteins, IgE <0.10 <0.70 kU/L 08/07/2024 6:28 PM CDT [facility] Comment: Class 0 (Negative <0.10) ----ADDITIONAL INFORMATION---- This test was developed and its performance characteristics determined by [facility] in a manner consistent with CLIA requirements. This test has not been cleared or approved by the U.S. Food and Drug Administration. Blood (Blood, Venous) 08/04/2024 10:44 AM CDT 08/07/2024 2:24 PM CDT Reed Schmid M.D. LAB BLOOD ADD-ON Final Resu lt Performing Organization Address City/[facility]/ZIP Co de Phone Number [facility] [address] [place] [address] [facility] [address] [place] [address] * [place] Feathers, IgE (08/04/2024 10:44 AM CDT) [facility] [place] Feathers, IgE <0.10 <0.70 kU/L 08/07/2024 6:16 PM CDT [facility] Comment:Class 0 (Negative <0 .10) Blood (Blood, Venous) 08/04/2024 10:44 AM CDT 08/07/2024 2:24 PM CDT Reed Schmid M.D. LAB BLOOD ADD-ON Final Resu lt Performing Organization Address [facility] de Phone Number [facility] [address] [place] [address] [facility] [address] [place] [address] * Mouse Serum Protein, IgE (08/04/2024 10:44 AM CDT) [facility] Mouse Serum Protein, IgE <0.10 <0.70 kU/L 08/07/2024 6:17 PM CDT [facility] Comment:Class 0 (Negative <0 .10) Blood (Blood, Venous) 08/04/2024 10:44 AM CDT 08/07/2024 2:24 PM CDT Reed Schmid M.D. LAB BLOOD ADD-ON Final Resu lt Performing Organization Address City/State/[facility] Co de Phone Number [facility] [address] [place] [address] [facility] [address] [place] [address] * Chicken Droppings, IgE (08/04/2024 10:44 AM CDT) Chicken Droppings, IgE <0.10 <0.70 kU/L 08/07/2024 6:27 PM CDT [facility] Comment: Class 0 (Negative <0.10) ----ADDITIONAL INFORMATION---- This test was developed and its performance characteristics determined by [facility] in a manner consistent with CLIA requirements. This test has not been cleared or approved by the U.S. Food and Drug Administration. Blood (Blood, Venous) 08/04/2024 10:44 AM CDT 08/07/2024 2:24 PM CDT Reed Schmid M.D. LAB BLOOD ADD-ON Final Resu lt [facility] [address] [place] [address] [facility] [address] [place] [address] * Mouse Epithelium, IgE (08/04/2024 10:44 AM CDT) Mouse Epithelium, IgE <0.10 <0.70 kU/L 08/07/2024 6:16 PM CDT [facility] Comment:Class 0 (Negative <0 .10) Blood (Blood, Venous) 08/04/2024 10:44 AM CDT 08/07/2024 2:24 PM CDT Reed Schmid M.D. LAB BLOOD ADD-ON Final Resu lt [facility] [address] [place] [address] [facility] [address] [place] [address] * Chicken Feathers, IgE (08/04/2024 10:44 AM CDT) Chicken Feathers, IgE <0.10 <0.70 kU/L 08/07/2024 6:16 PM CDT [facility] Comment:Class 0 (Negative <0 .10) Blood (Blood, Venous) 08/04/2024 10:44 AM CDT 08/07/2024 2:24 PM CDT Result [facility] Reed Schmid M.D. LAB BLOOD ADD-ON Final Resu lt Performing Organization Address City/[facility] Co de Phone Number [facility] [address] [place] [address] [facility] [address] [place] [address] * Mouse Urine Protein, IgE (08/04/2024 10:44 AM CDT) Mouse Urine Protein, IgE <0.10 <0.70 kU/L 08/07/2024 6:17 PM CDT [facility] Comment:Class 0 (Negative <0 .10) Blood (Blood, Venous) 08/04/2024 10:44 AM CDT 08/07/2024 2:24 PM CDT Result [facility] Reed Schmid M.D. LAB BLOOD ADD-ON Final Resu lt Performing Organization Address City/[facility] Co de Phone Number [facility] [address] [place] [address] [facility] [address] [address] * Immunoglobulin E (IgE) (08/04/2024 10:44 AM CDT) Immunoglobulin E (IgE), S 76.2 <=214 kU/L 08/07/2024 6:17 PM CDT [facility] Blood (Blood, Venous) 08/04/2024 10:44 AM CDT 08/07/2024 2:24 PM CDT Result [facility] Reed Schmid M.D. LAB BLOOD ADD-ON Final Resu lt [facility] [address] [place] [address] [facility] [address] [place] [address] * Northern Skin Test (08/04/2024 9:30 AM CDT) Narrative [facility]OD[facility] - 08/04/2024 9:30 AM CDT Katherine Cha R.N. 08/04/2024 10:55 AM Panel Skin Tests Flowsheet Row Clinical Support from 08/04/2024 in Department of Allergy in [place], [place] Controls Histamine (15 min W/F) 9x9w/f Glycerine (15 min W/F) 0 [place] Basic Adult Panel Dexter, White: 0 Tacho, White: 0 Birch: 0 Rincon, Red: 0 [place], Eastern: 0 [place]: 0 Stanley: 0 [place], Shagbark: 0 Maple: 0 Hill[place], White: 0 [place], Black: 0 R[place]: 0 [place], White: 0 [place]: 0 Lee, Bruneian: 0 Hann[place], Black: 0 [place]: 0 Bermuda: 7x7f [place] Blue: 0 Orchard: 0 Quack: 7x7f Red Corning: 0 Franco: 0 Cocklebur: 0 Kochia: 0 James's Quarters: 0 Steele Elder, Burweed: 0 Mugwort, Common: 0 Nettle: 0 Plantain, Tamazight: 0 Rough Pigweed: 0 Ethiopian Thistle: 0 Short Ragweed: 0 [place], Sheep Red: 0 Cat Hair: 0 Cattle [...] 0 Rhizopus Stolonifer: 0 Stemphylium Solani: 0 us Reed Schmid M.D. PROCEDURE/MINOR SURGICAL OR DERABLES Final Result [facility] NA * Basic Skin Test (08/04/2024 9:30 AM CDT) Narrative MMODAL - 08/04/2024 9:30 AM CDT Katherine Cha R.N. 08/04/2024 10:55 AM Panel Skin Tests Flowsheet Row Clinical Support from 08/04/2024 in Department of Allergy in [place], [place] Controls Histamine (15 min W/F) 9x9w/f Glycerine (15 min W/F) 0 [place] Basic Adult Panel Dexter, White: 0 Tacho, White: 0 Birch: 0 Rincon, Red: 0 Rut[place], Eastern: 0 Westminster: 0 Stanley: 0 [place], Shagbark: 0 Maple: 0 [place], White: 0 [place], Black: 0 [place]: 0 [place], White: 0 [place]: 0 [place], Bruneian: 0 [place], Black: 0 [place]: 0 [place]: 7x7f [place] Blue: 0 Orchard: 0 Quack: 7x7f [place]: 0 Franco: 0 Cocklebur: 0 Koch[place]: 0 [place]: 0 [place] Elder, Burweed: 0 Mugwort, Common: 0 Nettle: 0 Plantain, Tamazight: 0 Rough Pigweed: 0 Ethiopian Thistle: 0 Short Ragweed: 0 [place], Sheep Red: 0 Cat Hair: 0 Cattle [...] SURGICAL OR DERABLES Final Result MMODAL NA * HOLTER MONITOR - IN CLINIC AGENTS' RECORDS CLERK (07/06/2024 2:29 PM COMPUTER TAPE LIBRARIAN) Min Heart Rate 58 bpm INFOB IONIC MOME Max Heart Rate 125 bpm INFOB IONIC MOME Mean Heart Rate 83 bpm INFOBIONIC MOME VE Total Beats 0 count INFOB IONIC MOME VE Percent Beats less than 1 percent INFOBIONIC MOME SVE Total Beats 2 count INFOBIONIC MOME SVE Percent Beats less than 1 percent INFOBIONIC MOME AF Count 0 count INFOBIONIC MOME AF Duration 0 duration INFOBION IC MOME AF Cushing 0 percent INFOBIONIC MOME Symptom Count 9 count INFOBI ONIC MOME 07/05/2024 2:31 PM COMPUTER TAPE LIBRARIAN Narrative INFOBIONIC MOME - 07/07/2024 3:29 PM COMPUTER TAPE LIBRARIAN 1. The basic rhythm was sinus with [...] feeling faint, chest pain, chest pressure; rarely: skipped beats. The basic rhythm was sinus with sinus arrhythmia. The heart rate varied from 81 to 98 bpm. No ectopy was noted. Rn Gynecology: MARY Lloyd/MARY Zamora Procedure Note Washington Herron M.D. - 07/07/2024 1. The basic rhythm was sinus with sinus arrhythmia. The total analyzedtime was 22h 2m. The heart rate varied from 58 to 125 bpm. The average HRwas 83 bpm. 2. No premature ventricular complexes were noted. 3. Premature supraventricular complexes were noted singly. There were 2PACs recorded with a PAC burden of less than 1%. 4. A total of 9 symptomatic events were noted, which included symptoms ofconstant: shortness of breath and fatigue, occasional: dizziness, feelingfaint, chest pain, chest pressure; rarely: skipped beats. The basicrhythm was sinus with sinus arrhythmia. The heart rate varied from 81 to 98 bpm. No ectopy wasnoted. Rn Gynecology: MARY Lloyd/MARY Zamora Babar Jc M.D. CV CARDIAC SERVICES PRO CEDURES Final Result MATT WISE NA * Home Overnight Oximetry (07/05/2024) 07/05/2024 Impressions [facility] EA - 07/07/2024 4:09 PM COMPUTER TAPE LIBRARIAN This is an overnight oximetry performed on [...] with the patient is necessary. Please note Warren Sleepiness Scale score of 20 indicative of excessive daytime drowsiness. Physician: Roger Whitten M.D. [id number] Narrative Procedure Note Roger Whitten M.D., Ph.D. [...] with the patient is necessary. Please note Warren Sleepiness Scale score of 20 indicative ofexcessive daytime drowsiness. Physician: Roger Whitten M.D. [id number] Krishan Triana PFT ORDERABLES Final Resu lt [facility] EA * (ABNORMAL) Arterial Blood Gas - Rest (07/03/2024 12:23 PM COMPUTER TAPE LIBRARIAN) Sample Site Right Radial Single Stick 07/03/2024 12:44 PM COMPUTER TAPE LIBRARIAN DTL Patient Position Sit 07/03/19 12:44 PM COMPUTER TAPE LIBRARIAN DTL Patient Activity Rest 07/03/19 12:44 PM COMPUTER TAPE LIBRARIAN DTL FIO2 21.00 21%=AIR % 07/03/2024 12:44 PM COMPUTER TAPE LIBRARIAN DTL pH Arterial 7.46(H) 7.35 - 7.45 07/03/2024 12:44 PM COMPUTER TAPE LIBRARIAN DTL pCO2 Arterial 36.7 35.0 - 45.0 mm Hg 07/03/2024 12:44 PM COMPUTER TAPE LIBRARIAN DTL pO2 Arterial 94.6 80.0 - 100.0 mm Hg 07/03/2024 12:44 PM COMPUTER TAPE LIBRARIAN DTL Total Hemoglobin 12.8 11.6 - 15.0 g/dL 07/03/2024 12:44 PM COMPUTER TAPE LIBRARIAN DTL O2 Saturation 93.3(L) 94.0 - 98.0 % 07/03/2024 12:44 PM COMPUTER TAPE LIBRARIAN DTL Carboxyhemoglobin 3.9(H) 0.0 - 1.9 % 07/03/2024 12:44 PM COMPUTER TAPE LIBRARIAN DTL Methemoglobin 1.0(H) 0.0 - 0.9 % 07/03/2024 12:44 PM COMPUTER TAPE LIBRARIAN DTL Bicarbonate Conc 25.9 22.0 - 26.0 mmol/L 07/03/2024 12:44 PM COMPUTER TAPE LIBRARIAN DTL Base Excess 2.0 0.0 - 2.0 mmol/L 07/03/2024 12:44 PM COMPUTER TAPE LIBRARIAN DTL [place] 0.00 07/03/2024 12:44 PM COMPUTER TAPE LIBRARIAN DTL Activity Time 10.0 min 07/03/2024 12:44 PM COMPUTER TAPE LIBRARIAN DTL Subcutaneous Lidocaine 0.0 mL 07/03/2024 12:44 PM COMPUTER TAPE LIBRARIAN DTL O2 Devices N/A 07/03/2024 12:44 PM COMPUTER TAPE LIBRARIAN DTL Blood (Blood, Arterial) 07/03/2024 12:23 PM COMPUTER TAPE LIBRARIAN 07/03/2024 12:43 PM COMPUTER TAPE LIBRARIAN us Krishan Triana LAB BLOOD ADD-ON Final Res ult [facility] [address] [place] [address], [facility] [address] [place] [address] * Pulmonary Function Tests (07/03/2024 9:16 AM COMPUTER TAPE LIBRARIAN) FVC 3.08 L 07/03/2024 11:23 AM [facility] FEV1 2.58 L 07/03/2024 11:23 AM [facility] FEV1/FVC 83.68 % 07/03/2024 11:23 AM [facility] PAT76-71% 3.10 L/s 07/03/2024 11:23 AM [facility] PEF PRE 7.22 L/s 07/03/2024 11:23 AM [facility] PIF PRE 5.59 L/s 07/03/2024 11:23 AM [facility] Pre FEF50/FIF50 72.31 % 11:23 AM [facility] FET PRE 11.86 sec 07/03/2024 11:23 AM [facility] DLCO 20.11 ml/(min*mm Hg) 07/03/2024 11:23 AM [facility] DLCOc 19.99 ml/(min*mm Hg) 07/03/2024 11:23 AM [facility] HB 13.60 g(Hb)/dL 07/03/2024 11:23 AM COMPUTER TAPE LIBRARIAN [facility] Pre % Pred VA SINGLE BREATH 3.92 L 07/03/2024 11:23 AM COMPUTER TAPE LIBRARIAN [facility] 07/03/2024 9:16 AM COMPUTER TAPE LIBRARIAN Impressions [facility] - 07/03/2024 11:23 AM COMPUTER TAPE LIBRARIAN Within normal limits. Since 11/22/2023 there has been no significant change. Narrative Procedure Note Roger Whitten M.D., Ph.D. - 07/03/2024 IMPRESSION: Within normal limits. Since 11/22/2023 there has been no significantchange. Krishan JuarezB.S. PFT ORDERABLES Final Resu lt Performing Organization Address City/[facility]/ZIP Co de Phone Number [facility] NA * (ABNORMAL) Dipstick, Urine (07/03/2024 8:48 AM COMPUTER TAPE LIBRARIAN) Hemoglobin, QL, U Moderate(A) Negative 07/03/2024 9:57 AM COMPUTER TAPE LIBRARIAN DTL Leukocyte Esterase, U Negative Negative 07/03/2024 9:57 AM COMPUTER TAPE LIBRARIAN DTL Nitrite, U Negative Negative 07/03/2024 9:57 AM COMPUTER TAPE LIBRARIAN DTL Ketone, U Negative Negative mg/dL 07/03/2024 9:57 AM COMPUTER TAPE LIBRARIAN DTL Glucose, U Negative Negative mg/dL 07/03/2024 9:57 AM COMPUTER TAPE LIBRARIAN DTL Urine 07/03/2024 8:48 AM COMPUTER TAPE LIBRARIAN 07/03/2024 9:18 AM COMPUTER TAPE LIBRARIAN Krishan Shankar.B.S. LAB URINE ORDERABLES Final Result Performing Organization Address City/[facility]/ZIP Co de Phone Number [facility] [address] [place] [address], [facility] DTL [facility] [address] [place] [address] * (ABNORMAL) Microscopic Automated (07/03/2024 8:48 AM COMPUTER TAPE LIBRARIAN) Microscopy Abnormal 07/03/2024 9:57 AM COMPUTER TAPE LIBRARIAN DTL RBC 3-10(A) <3 /hpf 07/03/2024 9:57 AM COMPUTER TAPE LIBRARIAN DTL Dysmorphic RBC <25 <25 % 07/03/2024 9:57 AM COMPUTER TAPE LIBRARIAN DTL WBC 1-3 /hpf 07/03/2024 9:57 AM COMPUTER TAPE LIBRARIAN DTL Comment: ----REFERENCE VALUE---- <4 (Males) <11 (Females) Squamous Epithelial Cells, U 1-3 /hpf 07/03/2024 9:57 AM COMPUTER TAPE LIBRARIAN DTL Urine 07/03/2024 8:48 AM COMPUTER TAPE LIBRARIAN 07/03/2024 9:18 AM COMPUTER TAPE LIBRARIAN Krishan Shankar.B.S. LAB URINE ORDERABLES Final Result Performing Organization Address [facility]/ZIP Co de Phone Number [facility] [address] [facility] [address] [place] [address] * pH, Urine (07/03/2024 8:48 AM COMPUTER TAPE LIBRARIAN) pH, U 5.5 4.5 - 8.0 07/03/2024 10: 23 AM COMPUTER TAPE LIBRARIAN DT Urine 07/03/2024 8:48 AM COMPUTER TAPE LIBRARIAN 07/03/2024 9:18 AM COMPUTER TAPE LIBRARIAN Krishan Her.B.B.S. LAB URINE ORDERABLES Final Result Performing Organization Address City/[facility]/ZIP Co de Phone Number [facility] [address] [facility] [address] [place] [address] * Osmolality, Urine (07/03/2024 8:48 AM COMPUTER TAPE LIBRARIAN) Osmolality, U 936 150 - 1150 mOsm/kg 07/03/2024 10:23 AM COMPUTER TAPE LIBRARIAN DTL Urine 07/03/2024 8:48 AM COMPUTER TAPE LIBRARIAN 07/03/2024 9:18 AM COMPUTER TAPE LIBRARIAN Krishan JuarezB.S. LAB URINE ORDERABLES Final Result Performing Organization Address City/[facility] Co de Phone Number [facility] [address] [place] [address], [facility] 200 [place] [address] * Urinalysis, with Microscopic: Urine, Midstream (07/03/2024 8:48 AM COMPUTER TAPE LIBRARIAN) Source Urine, Urine, Midstream 07/03/2024 9:17 AM COMPUTER TAPE LIBRARIAN DTL Color, U Yellow 07/03/2024 9:18 AM COMPUTER TAPE LIBRARIAN DTL Clarity, U Clear 07/03/2024 9:18 AM COMPUTER TAPE LIBRARIAN DTL Protein, U 11 <26 mg/dL 07/03/2024 10:05 AM COMPUTER TAPE LIBRARIAN DTL Protein/Osmol ality 0.12 <0.42 ratio 07/03/2024 10:23 AM COMPUTER TAPE LIBRARIAN DTL Predicted 24 HR Protein, U 96 <229 mg/24 h 07/03/2024 10:23 AM COMPUTER TAPE LIBRARIAN DTL Predicted Range 24-388 mg/24 h 07/03/2024 10:23 AM COMPUTER TAPE LIBRARIAN DTL Urine (Urine, Midstream) 07/03/2024 8:48 AM COMPUTER TAPE LIBRARIAN 07/03/2024 9:17 AM COMPUTER TAPE LIBRARIAN Krishan JuarezB.S. LAB URINE ORDERABLES Final Result Performing Organization Address City/[facility]/ZIP Co de Phone Number [facility] [address] [place] [address], [facility] [address] [place] [address] * (ABNORMAL) Sedimentation Rate (07/03/2024 8:44 AM COMPUTER TAPE LIBRARIAN) Only the most recent of2 resultswithin the time period is included. Sedimentation Rate, B 32(H) 2 - 20 mm/h 07/03/2024 10:35 AM COMPUTER TAPE LIBRARIAN DTL Blood (Blood, Venous) 07/03/2024 8:44 AM COMPUTER TAPE LIBRARIAN 07/03/2024 9:05 AM COMPUTER TAPE LIBRARIAN us Krishan Triana LAB BLOOD ADD-ON Final Res ult [facility] [address] [place] [address], [facility] DTL [facility] [address] [place] [address] * (ABNORMAL) CBC with Differential, Blood (07/03/2024 8:44 AM COMPUTER TAPE LIBRARIAN) Only the most recent of2 resultswithin the time period is included. Hemoglobin 13.6 11.6 - 15.0 g/dL 07/03/2024 9:58 AM COMPUTER TAPE LIBRARIAN DTL Hematocrit 40.3 35.5 - 44.9 % 07/03/2024 9:58 AM COMPUTER TAPE LIBRARIAN DTL Erythrocytes 4.41 3.92 - 5.13 x10(12)/L 07/03/2024 9:58 AM COMPUTER TAPE LIBRARIAN DTL MCV 91.4 78.2 - 97.9 fL 07/03/2024 9:58 AM COMPUTER TAPE LIBRARIAN DTL RBC Distrib Width 13.2 12.2 - 16.1 % 07/03/2024 9:58 AM COMPUTER TAPE LIBRARIAN DTL Platelet Count 378(H) 157 - 371 x10(9)/L 07/03/2024 9:58 AM COMPUTER TAPE LIBRARIAN DTL Leukocytes 10.3(H) 3.4 - 9.6 x10(9)/L 07/03/2024 9:58 AM COMPUTER TAPE LIBRARIAN DTL Neutrophils 5.73 1.56 - 6.45 x10(9)/L 07/03/2024 9:58 AM COMPUTER TAPE LIBRARIAN DHPM Lymphocytes 3.77(H) 0.95 - 3.07 x10(9)/L 07/03/2024 9:58 AM COMPUTER TAPE LIBRARIAN DTL Monocytes 0.53 0.26 - 0.81 x10(9)/L 07/03/2024 9:58 AM COMPUTER TAPE LIBRARIAN DTL Eosinophils 0.18 0.03 - 0.48 x10(9)/L 07/03/2024 9:58 AM COMPUTER TAPE LIBRARIAN DTL Basophils 0.06 0.01 - 0.08 x10(9)/L 07/03/2024 9:58 AM COMPUTER TAPE LIBRARIAN DTL Blood (Blood, Venous) 07/03/2024 8:44 AM COMPUTER TAPE LIBRARIAN 07/03/2024 9:05 AM COMPUTER TAPE LIBRARIAN Krishan JuarezB.S. LAB BLOOD ADD-ON Final Res ult Performing Organization Address City/[facility]/ZIP Co de Phone Number [facility] [address] [place] [address], [facility] [address] [place] [address] * (ABNORMAL) CRP (C-Reactive Protein) (07/03/2024 8:44 AM COMPUTER TAPE LIBRARIAN) C-Reactive Protein (CRP), S 9.5(H) <5.0 mg/L 07/03/2024 9:26 AM COMPUTER TAPE LIBRARIAN DTL Blood (Blood, Venous) 07/03/2024 8:44 AM COMPUTER TAPE LIBRARIAN 07/03/2024 9:10 AM COMPUTER TAPE LIBRARIAN Krishan PaulsonS. LAB BLOOD ADD-ON Final Res ult Performing Organization Address City/[facility]/ZIP Co de Phone Number [facility] 200 [place] [address], [facility] [address] [place] [address] * Basic Metabolic Panel (07/03/2024 8:44 AM COMPUTER TAPE LIBRARIAN) Potassium, S 4.6 3.6 - 5.2 mmol/L 07/03/2024 9:26 AM COMPUTER TAPE LIBRARIAN DTL Sodium, S 139 135 - 145 mmol/L 07/03/2024 9:26 AM COMPUTER TAPE LIBRARIAN DTL Chloride, S 103 98 - 107 mmol/L 07/03/2024 9:26 AM COMPUTER TAPE LIBRARIAN DTL Bicarbonate, S 26 22 - 29 mmol/L 07/03/2024 9:26 AM COMPUTER TAPE LIBRARIAN DTL Anion Gap 10 7 - 15 07/03/2024 9:26 AM COMPUTER TAPE LIBRARIAN DTL BUN (Blood Urea Nitrogen), S 17 6 - 21 mg/dL 07/03/2024 9:26 AM COMPUTER TAPE LIBRARIAN DTL Creatinine 0.67 0.59 - 1.04 mg/dL 07/03/2024 9:26 AM COMPUTER TAPE LIBRARIAN DTL Estimated GFR (eGFR) >90 >=60 mL/min/BSA 07/03/2024 9:26 AM COMPUTER TAPE LIBRARIAN DTL Comment: Estimated GFR calculated using the 2020 CKD_EPI creatinine equation. Calcium, Total, S 9.6 8.6 - 10.0 mg/dL 07/03/2024 9:26 AM COMPUTER TAPE LIBRARIAN DTL Glucose, S 116 70 - 140 mg/dL 07/03/2024 9:26 AM COMPUTER TAPE LIBRARIAN DTL Blood (Blood, Venous) 07/03/2024 8:44 AM COMPUTER TAPE LIBRARIAN 07/03/2024 9:10 AM COMPUTER TAPE LIBRARIAN us Krishan Triana LAB BLOOD ADD-ON Final Res ult [facility] [address] [place] [address], [facility] DTL [facility] [address] [place] [address] * CT Chest without IV Contrast (07/03/2024 8:14 AM COMPUTER TAPE LIBRARIAN) Anatomical Region Laterality Modality Chest, Thoracic RST LOS, Tho racic ARZ LOS, Thoracic FLA LOS N/A Computed Tomography, Compute d Tomography Impressions 07/03/2024 8:34 AM COMPUTER TAPE LIBRARIAN 1. No significant change since 04/14/2024. Similar clustered nodules in the right middle lobe, and small lung nodules elsewhere. 2. Diffuse air trapping, consistent with small airways disease. 3. Hepatic steatosis. Narrative 07/03/2024 8:34 AM COMPUTER TAPE LIBRARIAN EXAM: CT CHEST WITHOUT IV CONTRAST COMPARISON: CT chest 04/14/2024 and 11/21/2023 FINDINGS: Similar clustered nodules in the right middle lobe, with stable dominant nodules measuring 15 x 11 mm ( Series 3, Image 263) and 15 x 11 mm ( Series 3, Image 302). Stable small nodules elsewhere, including 3 mm nodule posterior left lower lobe ( Series 3, Image 303). Mosaic pulmonary attenuation, with diffuse bilateral sublobar air trapping on expiration imaging (series 8), as can be seen with small airways disease. Nothing specific for fibrotic interstitial lung disease. Stable scattered subcentimeter lymph nodes in the chest, without adenopathy. Hepatic steatosis. Cholecystectomy clips. Examination otherwise negative or unchanged. Thoracic spine curvature. Procedure Note Oh Beck M.B., B.Ch. - 07/03/2024 EXAM: CT CHEST WITHOUT IV CONTRAST COMPARISON: CT chest 04/14/2024 and 11/21/2023 FINDINGS: Similar clustered nodules in the right middle lobe, with stable dominantnodules measuring 15 x 11 mm ( Series 3, Image 263) and 15 x 11 mm (Series 3, Image 302). Stable small nodules elsewhere, including 3 mm nodule posterior left lowerlobe ( Series 3, Image 303). Mosaic pulmonary attenuation, with diffuse bilateral sublobar air trappingon expiration imaging (series 8), as can be seen with small airwaysdisease. Nothing specific for fibrotic interstitial lung disease. Stable scattered subcentimeter lymph nodes in the chest, withoutadenopathy. Hepatic steatosis. Cholecystectomy clips. Examination otherwise negative or unchanged. Thoracic spine curvature. IMPRESSION: 1. No significant change since 04/14/2024. Similar clustered nodules inthe right middle lobe, and small lung nodules elsewhere. 2. Diffuse air trapping, consistent with small airways disease. 3. Hepatic steatosis. Krishan Triana [facility] [place]ED[place] Final Re sult * HLA B27 Associated Antigen Screening (06/09/2024 9:04 AM COMPUTER TAPE LIBRARIAN) HLA-B27 Result Negative Not Applicable 06/11/2024 8:39 AM COMPUTER TAPE LIBRARIAN [facility] Comment: A portion of the testing process was performed at [facility] [id number] HLA-B27 Interpretation see below 06/11/2024 8:39 AM COMPUTER TAPE LIBRARIAN DBB[facility] Comment: HLA-B27 antigen was not detected. ----ADDITIONAL INFORMATION---- Method: Flow Cytometry CLIA: [id number] CLIA Laundry Superintendent: LONG STERLING,Ph.D. Blood (Blood, Venous) 06/09/2024 9:04 AM COMPUTER TAPE LIBRARIAN 06/10/2024 8:04 AM COMPUTER TAPE LIBRARIAN Result Reagan Jacobs M.D. LAB BLOOD NON ADD-ON Final R esult [facility] [address] [place] [address], [facility] DBB8 [facility] [address] [place] [address] * Cyclic Citrullinated Peptide Antibodies, IgG (06/09/2024 9:04 AM COMPUTER TAPE LIBRARIAN) Cyclic Citrullinated Peptide Ab, S <15.6 <20.0 (Negative) U 06/10/2024 12:30 PM COMPUTER TAPE LIBRARIAN [facility] Comment: Interpretation: Antibodies to CCP not detected. If clinical symptoms are strongly indicative for rheumatoid arthritis, suggest testing for Rheumatoid Factor, S (RHUT) and, if positive, Rheumatoid Factor Panel, S (RFPN), which includes differentiation of rheumatoid factor IgM and IgA isotypes. Blood (Blood, Venous) 06/09/2024 9:04 AM COMPUTER TAPE LIBRARIAN 06/10/2024 7:13 AM COMPUTER TAPE LIBRARIAN Result Reagan Jacobs M.D. LAB BLOOD ADD-ON Final Resul t Performing Organization Address [facility] Co de Phone Number [facility] [address] [place] [address] [facility] [address] [place] [address] * Rheumatoid Factor (06/09/2024 9:04 AM COMPUTER TAPE LIBRARIAN) Rheumatoid Factor, S <10 <15 IU/mL 06/09/2024 3:59 PM COMPUTER TAPE LIBRARIAN [facility] Blood (Blood, Venous) 06/09/2024 9:04 AM COMPUTER TAPE LIBRARIAN 06/09/2024 3:27 PM COMPUTER TAPE LIBRARIAN us Lynn Jacobs M.D. LAB BLOOD ADD-ON Final Resul t [facility] [address] [place] [address], [facility] AUST [facility] [address] [place] [address] * PAU (Antinuclear Antibodies) (06/09/2024 9:04 AM COMPUTER TAPE LIBRARIAN) Antinuclear Ab, S 0.4 <=1.0 (Negative) U 06/10/2024 2:21 PM COMPUTER TAPE LIBRARIAN [facility] Comment: ----ADDITIONAL INFORMATION---- Method: Enzyme-linked immunoassay using HEp-2 nuclear extract supplemented with purified antigens. Blood (Blood, Venous) 06/09/2024 9:04 AM COMPUTER TAPE LIBRARIAN 06/10/2024 7:14 AM COMPUTER TAPE LIBRARIAN us Lynn Jacobs M.D. LAB BLOOD ADD-ON Final Resul t [facility] [address] [place] [address] [facility] [address] [place] [address] * (ABNORMAL) Lipid Panel (09/16/2015 11:30 AM [...] for FH and FDB is available through [place] [employer]: FH/ADH Genetic Reflex Panel (test ADHP). Acquired (non-genetic) causes of markedly increased LDL cholesterol include cholestatic liver disease due to the presence of LpX. If a genetic form of hypercholesterolemia is suspected, family studies including biochemical testing for lipids (total cholesterol,triglycerides, LDL cholesterol and HDL cholesterol) are recommended. Please contact the laboratory at or the on-line test catalog at [facility] for information about how to order these [...] CDT Howie Montes Jr., M.D. LAB BLOOD ADD-ON Edite d Result - Final POWERCHART from Last 3 Months or Most Recently Relevant to Health Maintenance Insurance MEDICARE Care Teams Mixing Machine Attendant Relationship Specialty Start Date End Date Lynn Jacobs M.D. [address] [place] [address] GEORGE Pandey [id number] PCP - General Family Medicine 04/03/24
[2024-08-25 17:03] VITALS: BP 170/121; PULSE 102; RESP 16; TEMP 37.2; O2SAT 95; BMI 27.1
--- NOTE | 2024-08-25 17:14 | ED.GENADULT ---
HPI - General Adult General Time Seen by Provider: 17:14 Date Seen: 08/25/24 Chief complaint: Headache/Migraine Stated complaint: Strange feeling on rt side of face Time Seen by Provider: 08/25/24 16:58 Source: patient, RN notes reviewed and lap runner (ASL) Mode of arrival: ambulatory Limitations: no limitations History of Present Illness HPI narrative: This 34-year-old female is ambulatory into the ED of her own accord with concern of abnormal right facial sensation in setting of headache. She notes especially today she has felt like her right face around her eyes just felt funny, states it almost feels like a pressure. She states it felt at times like there is an abnormal pulsing in that side of the face, almost like a worm crawling around in the face. There is maybe some tingling sensation but she can not really say if there is numbness. She has had dental work done before and is aware of the sensation of the numbness feeling, she really can not tell me for face feels that way are not. She states it is just different. She tried to lay down for nap this afternoon in felt the sense that something was crawling around. She has been having headaches. She recently went to Urgent Care, was seen on August 14 with complaints of headache for 3 days, pain below ir right eye and pressure in her eye. She notes that she does have headaches to me but looking back in her note from urgent care, told them that she did not frequently have migraines. She notes that she did go to an eye doctor in the interim and her eye was fine. She states that she has had intermittent right eye blurring. She told nursing staff that today the whole right side of her face started feeling weird maybe like a migraine in the temporal lobe and then slowly moved down to the right side of her face. Her symptoms have been present since about 830 this morning. She has been taking Tylenol and ibuprofen for her headaches, this current mormon discomfort and her cheeks symptoms without relief. She tells me it is not really a pain but more of a pressure sensation. Today she noted that her right face felt like it was having hot flashes that lasted about 2 minutes. It is more of a strain sensation in her face, she has difficulty completely elaborating to me what it feels like. She notes both of her hands have pressure feeling in them but right is greater than left. No numbness tingling weakness elsewhere. She has not been sick with anything, denies any head trauma. She does have a history of sinus problems, states she did have sinus surgery to open up 1 of the holes in the sinuses. Related Data Home Medications ?Medication ?Instructions ?Recorded ?Confirmed ibuprofen PO 01/16/24 01/31/24 tacrolimus 0.1 % topical ointment 1 applic topical BID 08/14/24 08/14/24 Previous Rx's ?Medication ?Instructions ?Recorded ketorolac 10 mg tablet 10 mg PO Q6H PRN pain #5 tabs 08/14/24 Allergies Allergy/AdvReac Type Severity Reaction Status Date / Time Penicillins Allergy Mild Rash Verified 08/14/24 18:07 sulfamethoxazole (From Allergy Mild Rash Verified 08/14/24 18:07 Sulfamethoxazole-Trimethoprim) trimethoprim (From Allergy Mild Rash Verified 08/14/24 18:07 Sulfamethoxazole-Trimethoprim) latex Allergy Unknown uncertain, Verified 08/14/24 18:07 had a reaction to a balloon once, not since Review of Systems Status of ROS: Reports: 6 or more systems reviewed and unremarkable except as noted in History and below [facility] Medical History Hx of hematuria ?Z87.448 - Personal history of other diseases of urinary system (ICD-10) Scoliosis of lumbar spine ?M41.9 - Scoliosis, unspecified (ICD-10) Positive PAU (antinuclear antibody) ?R76.8 - Other specified abnormal immunological findings in serum (ICD-10) Polycystic ovary syndrome ?E28.2 - Polycystic ovarian syndrome (ICD-10) History of fatty infiltration of liver ?Z87.19 - Personal history of other diseases of the digestive system (ICD-10) Environmental allergies ?Z91.09 - Other allergy status, other than to drugs and biological substances (ICD-10) Essential hypertension ?I10 - Essential (primary) hypertension (ICD-10) Hearing impaired ?H91.90 - Unspecified hearing loss, unspecified ear (ICD-10) Hyperlipidemia ?E78.5 - Hyperlipidemia, unspecified (ICD-10) Asthma ?J45.909 - Unspecified asthma, uncomplicated (ICD-10) Depression ?F32.A - Depression, unspecified (ICD-10) History of delivery, currently ?O09.899 - Supervision of other high risk pregnancies, unspecified trimester (ICD-10) Surgical History Hx of cystoscopy ?Z98.890 - Other specified postprocedural states (ICD-10) History of colposcopy ?Z98.890 - Other specified postprocedural states (ICD-10) Hx of cholecystectomy ?Z90.49 - Acquired absence of other specified parts of digestive tract (ICD-10) History of bunionectomy ?Z98.890 - Other specified postprocedural states (ICD-10) Hx of hernia repair ?Z98.890 - Other specified postprocedural states (ICD-10) ?Z87.19 - Personal history of other diseases of the digestive system (ICD-10) Family History Other Cancer High blood pressure Multiple sclerosis Social History What is your current living situation?: I presently have a place to live Problems where you live: pests, such as bugs, ants, or mice and carbon monoxide detectors missing or not working In the past 12 months, utilities in danger of being shut off: no In past 12 months, lack of transportation kept you from medical appts, meetings, work, or getting things needed for daily living: no In the past 12 mos, have been you worried that your food would run out before you had money to buy more?: never true In the past 12 mos, the food you bought just didn't last and you didn't have money to buy more?: never true Smoking Status: Never smoker Do you use any of these nicotine containing products: None Second hand tobacco smoke exposure: No How often do you have a drink containing alcohol: monthly or less How many standard drinks containing alcohol do you have on a typical day: 1 or 2 AUDIT-C Alcohol total score: 1 Non-prescribed substance use: marijuana (any form) How often does anyone, including family, friends and others, physically hurt you: never How often does anyone, including family, friends and others, insult or talk down to you: fairly often How often does anyone, including family, friends and others, threaten you with harm: never How often does anyone, including family, friends and others, scream or curse at you: never service: No Health Related Social Needs: Inadequate housing (Z59.1) and Other personal risk factors, not elsewhere classified (Z91.89) Exam Const: Vital Signs, click to edit/add: Vital Signs - 24 hr 08/25/24 17:03 08/25/24 17:44 08/25/24 17:44 Temperature 98.9 F Pulse Rate [Pulse Oximeter] 102 H Respiratory Rate 16 Blood Pressure [Ri ght Upper Arm] 170/121 H 180/100 H Pulse Oximetry 95 98 Oxygen Delivery Me thod Room Air This 34-year-old female is alert, interactive, no apparent distress. Sitting up on the exam bed in room 3. She is signing with the lap runner. Pupils equal round reactive, sclera clear, extraocular muscles intact, no nystagmus noted. TMs canals normal, no evidence any concerning changes, no infection. Symmetrical facial function, oropharynx normal. No rash noted. Neck is supple, no adenopathy or masses, no jugular venous distension. Lungs are clear, good air entry, wheezing crackles, no tachypnea. CV regular rate and rhythm, 2/6 systolic murmur, normal S1-S2, no S3-S4. Abdomen is soft, nontender, nondistended. She has normal light touch sensation of her hands, good hand application integration architect strength, normal wrist flexion extension, normal elbow and shoulder strength, symmetric and 5/5 throughout both upper extremities. She gets up off the bed without any assistance, gait is normal. Has normal heel and toe ambulation. No tremors noted, no dysmetria on examination. Documenting provider has reviewed patient's vital signs: yes Course Course ED Course: This is a patient with reportedly history of migraine headaches with abnormal rate facial sensation, difficult to say if there is any numbness tingling based on my conversation with her but she has definite that she has abnormal certainly right upper facial symptoms. She also has a history of sinus disease but is not feeling ill. Her blood pressure is definitely elevated. I have reviewed with her that we unfortunately at this time cannot do MR imaging, we do not have staff for this. We can proceed to do a head CT and CTA of her head neck, full complement of labs. She has had symptoms since 01/13 this morning. It is possible that she may need further workup with MR imaging, may need to talk to Neurology at some point. Reevaluation(s) Time of Reevaluation #1: 19:29 Reevaluation #1: Have reviewed patient's CT imaging and provided her copies of the results. Reviewed my conversation with Neurology. They feel that her symptoms are likely due to migraine. Her headache right now is only 1 or 2 but she states the facial symptoms are just bothering her. We did discuss atypical migraines. She is ready to go home, did discuss with her about getting a dose of Toradol just to help resolve the symptoms, she is in agreement. She really does not feel she needs further medications, is planning to discharge to home at this time. We discussed the importance of follow-up next week in clinic, especially for recheck of her blood pressure. If her blood pressure is remaining elevated, she really should be placed back on antihypertensives. This is best served with her primary who knows her history, what she has been on, any possible intolerance is. Certainly we can see falsely elevated blood pressures due to the acute nature of ED visits, this certainly can be anxiety provoking for patients. Consultations Consultation #1: Spoke with Dr. Arora from [facility]. She sees were patient has had another admission for migraine in her records. She believes that this is likely migraine in nature. Will follow-up with patient, see how she is doing. Time: 19:22 Vital Signs Vital signs: Initial Vital Signs Temperature 98.9 F 08/25/24 17:03 Temperature Source Temporal Artery Scan 08/25/24 17:03 Pulse Rate 102 H 08/25/24 17:03 Respiratory Rate 16 08/25/24 17:03 Blood Pressure 170/121 H 08/25/24 17:03 Blood Pressure Mean 137 H 08/25/24 17:03 Blood Pressure Position Sitting 08/25/24 17:03 Pulse Oximetry 95 08/25/24 17:03 Oxygen Delivery Method Room Air 08/25/24 17:03 Vital Signs Temperature 98.9 F 08/25/24 17:03 Pulse Rate 102 H 08/25/24 17:03 Respiratory Rate 16 08/25/24 17:03 Blood Pressure 170/121 H 08/25/24 17:03 Pulse Oximetry 95 08/25/24 17:03 Oxygen Delivery Method Room Air 08/25/24 17:03 Temperature 98.9 F 08/25/24 17:03 Pulse Rate 102 H 08/25/24 17:03 Respiratory Rate 16 08/25/24 17:03 Blood Pressure 180/100 H 08/25/24 17:44 Pulse Oximetry 98 08/25/24 17:44 Oxygen Delivery Method Room Air 08/25/24 17:03 Medical Decision Making Lab Data Lab results reviewed: Yes I reviewed the patient's lab results Labs: Lab Results 08/25/24 Range/Units 17:43 WBC 10.10 (4.50-11.00) K/uL RBC 4.52 (4.00-5.20) m/uL Hgb 14.0 (12.0-16.0) gm/dL Hct 41.0 (33.0-51.0) % MCV 91 (80-100) fL MCH 31 (26-34) pg MCHC 34 (32-36) gm/dL RDW Coeff of Martina 12.4 (11.5-15.5) % Plt Count 407 (140-440) K/uL Neut % (Auto) 52.6 (42.0-72.0) % Lymph % (Auto) 40.0 (20-44) % [place] % (Auto) 5.2 (0.0-11.0) % Eos % (Auto) 1.7 (0.0-7.0) % Baso % (Auto) 0.3 (0.0-3.0) % Neut # (Auto) 5.31 (1.7-7.0) K/uL Lymph # (Auto) 4.04 H (0.90-2.90) K/uL [place] # (Auto) 0.50 (0.00-0.90) K/UL Eos # (Auto) 0.17 (0.00-0.50) K/uL Baso # (Auto) 0.03 (0.00-0.30) K/uL Abs Immat Gran (auto) 0.02 (0.00-0.30) K/uL Imm/Tot Granulo (auto) 0.2 % ESR 19 (2-20) mm/hr INR 0.86 L (0.91-1.10) APTT 27 (23-33) Seconds Sodium 138 (135-149) mmol/L Potassium 3.4 L (3.6-5.1) mmol/L Chloride 101 (96-114) mmol/L Carbon Dioxide 27 (20-32) mmol/L Anion Gap 10 (7-15) mEq/L BUN 16 (5-24) mg/dL Creatinine 0.6 (0.5-1.5) mg/dL Estimated Creat Clear 121.35 Estimated GFR 119 ml/min Glucose 139 H (60-115) mg/dL Calcium 9.5 (8.4-10.6) mg/dL Magnesium 1.8 (1.5-2.6) mg/dL Total Bilirubin 0.7 (0.1-1.5) mg/dL AST 35 (12-35) U/L ALT 46 H (4-35) U/L Alkaline Phosphatase 93 (40-150) U/L C-Reactive Protein 0.9 (0.5-1.0) mg/dL Total Protein 8.0 (6.0-8.3) g/dL Albumin 4.6 (3.3-5.0) g/dL TSH 1.510 (0.270-4.200) uIU/mL Imaging Data CT scan - head: Attestation: I have reviewed the pertinent imaging results. Radiologist's impression: Patient: MARILOU THRASHER Facility:?[facility] Patient ID:?[id number] Site Patient ID:?[id number]. Site :?[id number] Study:?CT-Head WITHOUT-08/25/2024 6:37:38 PM Ordering Physician:?Susan Briggs Final Report: INDICATION: Headache. Right facial paresthesias. COMPARISON: None. TECHNIQUE: Noncontrast CT head. FINDINGS: Normal brain parenchymal morphology. No acute intracranial hemorrhage, acute infarct, mass effect, or fracture. No midline shift. No abnormal ventricular dilatation. Normal calvarium and skull base. Visualized paranasal sinuses mastoid air cells are clear. Normal orbits bilaterally. IMPRESSION: No acute intracranial abnormality. Please note that all CT scans at this facility use dose modulation, iterative reconstruction, and/or weight-based dosing when appropriate to reduce radiation dose to as low as reasonably achievable. Dictated by Jonatan Marshall MD @ 08/25/2024 6:49:06 PM (Electronic Signature) CT- Other: Attestation: I have reviewed the pertinent imaging results. Radiologist's impression: Patient: MARILOU THRASHER Facility:?[facility] Patient ID:?[id number] Site Patient ID:?[id number]. Site :?[id number] Study:?CT-Head Angio WITH 95 CC ISOVUE 370-08/25/2024 6:38:39 PM Ordering Physician:?uSsan Briggs Preliminary Report: INDICATION: Right facial paresthesias. Headaches. COMPARISON: CT head from earlier today. FINDINGS: CTA head: Bilateral carotid siphons and [place] are patent. Major bilateral intracranial arterial circulations are patent with no focal high-grade stenosis, large vessel occlusion, or aneurysm. CTA neck: Bilateral carotid artery circulations are patent from the origin to the skullbase. No high-grade stenosis. Patent bilateral vertebral artery circulations from the origin to the vertebrobasilar junction. No high-grade stenosis or dissection. Other: Normal soft tissues of neck. Lung apices are clear. Dictated by Jonatan Marshall MD @ 08/25/2024 7:05:15 PM Read by:?Jonatan Marshall MD @08/25/2024 7:05:40 PM ECG Data Attestation: I personally reviewed and interpreted this ECG as follows: (Normal sinus rhythm, 91 beats per minute. Voltage criteria for LVH. No active ischemia, no infarct.) Prior ECG tracings: available for review Discharge Plan Discharge Clinical Impression: Atypical migraine, Facial paresthesia, Elevated blood pressure reading Patient Disposition: Home, Self-Care Condition: Stable Instructions: Migraine Headache (ED), Paresthesia (ED), Hypertension (ED) Additional Instructions: You need to follow-up with your primary care provider this next week, have your blood pressure recheck. If your blood pressure is remaining elevated, discussion regarding treatment for hypertension needs to be considered. Otherwise, migraines can be associated with sensory changes, weak all these paresthesias. I would recommend you go home and rest tonight, stay hydrated. If you have ongoing headaches or facial paresthesias, please review this with your doctor at your follow-up next week. If you have new concerns, feel you are worsening, headache is worsening and not responding to home Tylenol and ibuprofen, please seek re-evaluation. Activity Level: Activity as Tolerated Prescriptions: No Action ibuprofen PO tacrolimus 0.1 % ointment 1 applic topical BID ketorolac 10 mg tablet 10 mg PO Q6H PRN (Reason: pain) Qty: 5 0RF Rx Instructions: maximum total duration of 5 days from all oral, intranasal, or parenteral formulations Follow Up/Referrals: Yanick Valle MD [Primary Care Provider] - Stand Alone Forms: [employer] Info Instructions
--- NOTE | 2024-08-25 17:27 | CRLHL7_ITS ---
For Patients: As a result of the Century Cures Act, medical imaging exams and procedure reports are released immediately into your electronic medical record. You may view this report before your referring provider. If you have questions, please contact your health care provider. CLINICAL HISTORY: Headaches; right facial paresthesias. TECHNIQUE: Standard helical CT image acquisition through the head following the administration of intravenous contrast was performed. 3D and MIP reconstructions were performed at a separate workstation and permanently archived. COMPARISON: None available. FINDINGS: No intracranial proximal large vessel occlusion or flow-limiting luminal stenosis. No evidence of cerebral aneurysm. No findings to suggest an arterial-venous shunting lesion. The major dural venous sinuses and deep venous system are patent. IMPRESSION: No intracranial proximal large vessel occlusion, flow-limiting luminal stenosis, or cerebral aneurysm. Please note that all CT scans at this facility use dose modulation, iterative reconstruction, and/or weight-based dosing when appropriate to reduce radiation dose to as low as reasonably achievable. Dictated by Jack Car MD @ 08/26/2024 9:42:08 AM (Electronically Signed)
--- NOTE | 2024-08-25 17:27 | CRLHL7_ITS ---
For Patients: As a result of the Century Cures Act, medical imaging exams and procedure reports are released immediately into your electronic medical record. You may view this report before your referring provider. If you have questions, please contact your health care provider. INDICATION: Headache. Right facial paresthesias. COMPARISON: None. TECHNIQUE: Noncontrast CT head. FINDINGS: Normal brain parenchymal morphology. No acute intracranial hemorrhage, acute infarct, mass effect, or fracture. No midline shift. No abnormal ventricular dilatation. Normal calvarium and skull base. Visualized paranasal sinuses mastoid air cells are clear. Normal orbits bilaterally. IMPRESSION: No acute intracranial abnormality. Please note that all CT scans at this facility use dose modulation, iterative reconstruction, and/or weight-based dosing when appropriate to reduce radiation dose to as low as reasonably achievable. Dictated by Jonatan Marshall MD @ 08/25/2024 6:49:06 PM (Electronically Signed)
--- NOTE | 2024-08-25 17:27 | CRLHL7_ITS ---
For Patients: As a result of the Century Cures Act, medical imaging exams and procedure reports are released immediately into your electronic medical record. You may view this report before your referring provider. If you have questions, please contact your health care provider. CLINICAL HISTORY: Headaches; right facial paresthesias. TECHNIQUE: Standard helical CT image acquisition through the neck was performed after intravenous contrast bolus enhancement. 3D and MIP reconstructions were performed at a separate workstation and permanently archived. COMPARISON: None available. FINDINGS: The origins of the great vessels from the aortic arch are patent. The common carotid arteries are patent. No significant luminal stenoses of the proximal ICAs by NASCET criteria. The more distal cervical segments of the ICAs are patent. The origins and cervical segments of the vertebral arteries are patent. IMPRESSION: Patent cervical arterial vasculature without hemodynamically significant luminal stenosis. Please note that all CT scans at this facility use dose modulation, iterative reconstruction, and/or weight-based dosing when appropriate to reduce radiation dose to as low as reasonably achievable. Dictated by Jakc Car MD @ 08/26/2024 9:41:16 AM (Electronically Signed)
[2024-08-25 17:44] VITALS: BP 180/100; O2SAT 98
--- OUTSIDE RECORDS SUMMARY | 2024-08-25 17:47 | XMS_ITS | Encounter Summary ---
Author Organization [facility] Address [address] [place] [address] Care Team Providers Care Cell Maker Name Role Phone Lynn Jacobs M.D. 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 [address] [place] [phone] Phone: tel:[phone] fax:[phone] [facility] Referral ID Status Reason Start Date Expiration Date Visits Requested Visits Authorized [id number] Authorized Specialty Services Required 07/03/2024 01/02/2026 1 1 Scheduling Instructions GIH consult should be scheduled after all testing RVISOR PAINT Encounter Details Date Type Department Care Team (Late st Contact Info) Description 07/03/2024 Orders Only Division of Pulmonary Medicine in [place], [place] [address] [place] [phone] Krishan Jeffrey M.B.B.S. 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 1 to 4 times [...] Answer Date Recorded PHQ-2 Score 5 06/19/2024 [facility] [place] [facility] Occupat ional [facility] - Occupational Stress [...] your living situation today? I have a [facility] place to live 06/28/2023 Education Answer Date Recorded What is the highest level of school you have completed or the highest degree you have received? GED or equivalent Comments No Sex and Gender Information Value Date Recorded Sex Assigned at Female 06/28/2023 7:21 PM SUPERVISOR PAINT Legal Sex Female 2:56 PM SUPERVISOR PAINT Gender Identity Female 07/01/2019 7:57 PM SUPERVISOR PAINT Sexual Orientation Straight 07/01/2019 7: 57 PM SUPERVISOR PAINT documented as of this encounter Plan of Treatment Upcoming Encounters Date Type Department Care Team (Latest Contact Info) Description 08/28/2024 9:40 AM CDT Office Visit [facility], in [address] [phone] Lynn Jacobs M.D. 300 [place] [phone] 09/07/2024 3:45 PM CDT Office Visit Department of Otorhinolaryngology in [place], [place] [address] [place] [phone] Julieta Brice M.D. [address] [place] [phone] 09/22/2024 10:00 AM CDT Appointment Department of Cardiovascular Diseases in [address] [phone] Yanick Cartwright APRN, C.N.P. [address] [phone] Discharge Disposition: Home or Self Care 09/22/2024 11:20 AM CDT Appointment Department of Laboratory Medicine in [address] [phone] Yanick Cartwright APRN, C.N.P. [address] [phone] 10/06/2024 7:30 AM CDT Clinical Communication Virtual Review in [place], [place] 200 [place] [address] 10/11/2024 2:50 PM CDT Comprehensive Visit Division of Gastroenterology in [place], [place] [address] [place] [address] Krishan Jeffrey M.B.BJiarS. [address] [place] [address] 12/04/2024 2:00 PM CDT Office Visit Department of Family Medicine, [facility], in [place], [place] [address], [place] [address] Wendy Robles APRN, C.N.P. 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 Please note Mar Lin Sleepiness Scale score of 20 indicative of excessive daytime drowsiness. Physician: Roger Whitten M.D. [id number] Narrative Procedure Note Roger Whitten M.D., Ph.D. [...] with the patient is necessary. Please note Mar Lin Sleepiness Scale score of 20 indicative ofexcessive daytime drowsiness. Physician: Roger Whitten M.D. [id number] Krishan Triana PFT ORDERABLES Final Resu lt [facility] * (ABNORMAL) Arterial Blood Gas - Rest (07/03/2024 12:23 PM SUPERVISOR PAINT) Sample Site Right Radial Single Stick 07/03/2024 12:44 PM SUPERVISOR PAINT DTL Patient Position Sit 07/03/19 12:44 PM SUPERVISOR PAINT DTL Patient Activity Rest 07/03/19 25 12:44 PM SUPERVISOR PAINT DTL FIO2 21.00 21%=AIR % 07/03/2024 12:44 PM SUPERVISOR PAINT DTL pH Arterial 7.46(H) 7.35 - 7.45 07/03/2024 12:44 PM SUPERVISOR PAINT DTL pCO2 Arterial 36.7 35.0 - 45.0 mm Hg 07/03/2024 12:44 PM SUPERVISOR PAINT DTL pO2 Arterial 94.6 80.0 - 100.0 mm Hg 07/03/2024 12:44 PM SUPERVISOR PAINT DTL Total Hemoglobin 12.8 11.6 - 15.0 g/dL 07/03/2024 12:44 PM SUPERVISOR PAINT DTL O2 Saturation 93.3(L) 94.0 - 98.0 % 07/03/2024 12:44 PM SUPERVISOR PAINT DTL Carboxyhemoglobin 3.9(H) 0.0 - 1.9 % 07/03/2024 12:44 PM SUPERVISOR PAINT DTL Methemoglobin 1.0(H) 0.0 - 0.9 % 07/03/2024 12:44 PM SUPERVISOR PAINT DTL Bicarbonate Conc 25.9 22.0 - 26.0 mmol/L 07/03/2024 12:44 PM SUPERVISOR PAINT DTL Base Excess 2.0 0.0 - 2.0 mmol/L 07/03/2024 12:44 PM SUPERVISOR PAINT DTL Maddox 0.00 07/03/2024 12:44 PM SUPERVISOR PAINT DTL Activity Time 10.0 min 07/03/2024 12:44 PM SUPERVISOR PAINT DTL Subcutaneous Lidocaine 0.0 mL 07/03/2024 12:44 PM SUPERVISOR PAINT DTL O2 Devices N/A 07/03/2024 12:44 PM SUPERVISOR PAINT DTL Blood (Blood, Arterial) 07/03/2024 12:23 PM SUPERVISOR PAINT 07/03/2024 12:43 PM SUPERVISOR PAINT Krishan Triana LAB BLOOD ADD-ON Final Res ult 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 [address] [place] [phone] PCP - General Family Medicine 04/03/24 documented as of this encounter
--- OUTSIDE RECORDS SUMMARY | 2024-08-25 17:47 | XMS_ITS | Clinical Summary ---
Author Organization [facility] Address [address] [place] [phone] Phone Care Team Providers Care Healthcare Architect Name Role Phone Brinda Cordero MD Primary [...] Comments Blood Pressure 124/84 04/27/2023 11:01 AM TECHNICAL SALES CONSULTANT Pulse 88 04/27/2023 11:01 AM TECHNICAL SALES CONSULTANT Temperature 36.4 C (97.6 F) 04/27/2023 11:01 AM TECHNICAL SALES CONSULTANT Respiratory Rate 16 03/16/2023 9:33 AM CDT Oxygen Saturation 98% 03/16/2023 9:33 AM CDT Inhaled Oxygen Concentration - - Weight 77.3 kg (170 lb 6.4 oz) 04/27/2023 11:01 AM TECHNICAL SALES CONSULTANT Height 161.3 cm (5' 3.5) 04/27/2023 11:01 AM CS T Body Mass Index 29.71 04/27/2023 11:01 AM TECHNICAL SALES CONSULTANT Plan of Treatment Health Maintenance Due Date Last Done Comments Pneumococcal PPSV23 Highest Risk Adult (1 of 3 - PCV13) 2007 COVID-19 Vaccine ( - 2023-2 5 season) 2024 04/07/2022, 02/26/2021, 02/05/2021 Influenza Vaccine (Season Ended) 2025 04/07/2022, 08/22/2021, 03/17/2019, Additional history exists Insurance PM INTERFACED INSURANCE PM INTERFACED INSURANCE Care Teams Healthcare Architect Relationship Specialty Start Date End Date Brinda Cordero MD [address] [place] [address] PCP - General Family Medicine 03/16/23
--- OUTSIDE RECORDS SUMMARY | 2024-08-25 17:47 | XMS_ITS | Encounter Summary ---
Author Organization [facility] Address [address] [place] [address] Care Team Providers Care Screen Stretcher Name Role Phone Lynn Jacobs M.D. Primary Care Provider [phone] Reason for Referral * Outpatient (Routine) - Closed Specialty Diagnoses / Procedures Referred By Contac t Referred To Contact Diagnoses Rhinitis Allergic Procedures Northern Skin Test Reed Schmid M.D. [address] [place] [address] Phone: tel: fax: [facility] Referral ID Status Reason Start Date Expiration Date Visits Re quested Visits Authorized [id number] Closed 07/17/2024 10/17/2025 1 1 LTY MAKER * Outpatient (Routine) - Closed Specialty Diagnoses / Procedures Referred By Contac t Referred To Contact Diagnoses Rhinitis Allergic Procedures Basic Skin Test Reed Schmid M.D. [address] [address] Phone: tel: fax: [facility] Region Referral ID Status Reason Start Date Expiration Date Visits Re quested Visits Authorized [id number] Closed 07/17/2024 10/17/2025 1 1 LTY MAKER Reason for Visit * Reason Onset Date Comments Previsit Preparation 07/14/2024 Encounter Details Date Type Department Care Team (Latest Contact Info) Description 07/14/2024 Clinical Communication Department of Allergy in [place], [place] [address] [place] [phone] Emmy Caraballo, L.P.N. Previsit Preparation Social History Tobacco Use Types Packs/Day Years Used Date Smoking Tobacco: Never Smokeless Tobacco: Never Alcohol Use Standard Drinks/Week Comments No 0 (1 standard drink = 0.6 oz pur e alcohol) [facility] Utilities Answer Date Recorded In the past 12 months has e [employer], gas, oil, or water [employer] threatened to shut off services in your [...] often do you attend chur ch or hoahaoism services? 1 to 4 times per year 07/01/2019 Do you belong to any clubs o r organizations such as confucianism groups, unions, fraternal or athletic groups, or [...] Answer Date Recorded PHQ-2 Score 5 06/19/2024 [facility] [place] [facility] of Occupat ional Health - [...] your living situation today? I have a [facility] place to live 06/28/2023 Education Answer Date Recorded What is the highest level of school you have completed or the highest degree you have received? GED or equivalent Comments No Sex and Gender Information Value Date Recorded Sex Assigned at Female 06/28/2023 7:21 PM NOVELTY MAKER Legal Sex Female 2:56 PM NOVELTY MAKER Gender Identity Female 07/01/2019 7:57 PM NOVELTY MAKER Sexual Orientation Straight 07/01/2019 7: 57 PM NOVELTY MAKER documented as of this encounter Plan of Treatment Upcoming Encounters Date Type Department Care Team (Latest Contact Info) Description 08/28/2024 9:40 AM CDT Office Visit Department of Family Medicine, [facility], in [address] [phone] Lynn Jacobs M.D. 300 [place] [phone] 09/07/2024 3:45 PM CDT Office Visit Department of Otorhinolaryngology in [place], [place] [address] [place] [address] Julieta Brice M.D. [address] [place] [address] 09/22/2024 10:00 AM CDT Appointment Department of Cardiovascular Diseases in [address] [phone] Yancik Cartwright APRN, C.N.P. [address] [phone] Discharge Disposition: Home or Self Care 09/22/2024 11:20 AM CDT Appointment Department of Laboratory Medicine in [address] [phone] Yanick Cartwright APRN, C.N.P. [address] [phone] 10/06/2024 7:30 AM CDT Clinical Communication Virtual Review in [place], [place] 200 [place] [phone] 10/11/2024 2:50 PM CDT Comprehensive Visit Division of Gastroenterology in [place], [place] [address] [place] [phone] Krishan Jeffrey M.B.B.S. [address] [place] [phone] 12/04/2024 2:00 PM CDT Office Visit Department of Family Medicine, [facility], in [place], [place] [address] [phone] Wendy Robles APRN, C.NJairP. [address] [phone] documented as of this encounter Results * Northern Skin Test (08/04/2024 9:30 AM CDT) Narrative [facility] - 08/04/2024 9:30 AM CDT Katherine Cha R.N. 08/04/2024 10:55 AM Panel Skin Tests Flowsheet Row Clinical Support from 08/04/2024 in Department of Allergy in [place], [place] Controls Histamine (15 min W/F) 9x9w/f Glycerine (15 min W/F) 0 [place] Basic Adult Panel Adriana, White: 0 Tacho, White: 0 Birch: 0 Hemphill, Red: 0 Reno, Eastern: 0 Carlton: 0 Lillian: 0 Hidalgo, Shagbark: 0 Maple: 0 Cost, White: 0 [place], Black: 0 [place]: 0 [place], White: 0 [place]: 0 [place], Dominican: 0 Ursa, Black: 0 Larue: 0 Bermuda: 7x7f Kentucky Blue: 0 Orchard: 0 Quack: 7x7f Red Miramonte: 0 Franco: 0 Cocklebur: 0 Kochia: 0 James's Quarters: 0 Steele Elder, Burweed: 0 Mugwort, Common: 0 Nettle: 0 Plantain, Mongolian: 0 Rough Pigweed: 0 Chilean Thistle: 0 Short Ragweed: 0 Jakin, Sheep Red: 0 Cat Hair: 0 Cattle [...] M.D. PROCEDURE/MINOR SURGICAL OR DERABLES Final Result [facility] NA * Basic Skin Test (08/04/2024 9:30 AM CDT) Narrative MMODAL - 08/04/2024 9:30 AM CDT Katherine Cha R.N. 08/04/2024 10:55 AM Panel Skin Tests Flowsheet Row Clinical Support from 08/04/2024 in Department of Allergy in [place], [place] Controls Histamine (15 min W/F) 9x9w/f Glycerine (15 min W/F) 0 [place] Basic Adult Panel Columbia, White: 0 Tacho, White: 0 Birch: 0 Hemphill, Red: 0 Reno, Eastern: 0 Carlton: 0 Lillian: 0 Hidalgo, Shagbark: 0 Maple: 0 Cost, White: 0 [place], Black: 0 [place]: 0 [place], White: 0 [place]: 0 [place], Dominican: 0 Ursa, Black: 0 Larue: 0 Bermuda: 7x7f Kentucky Blue: 0 Orchard: 0 Quack: 7x7f Red Miramonte: 0 Franco: 0 Cocklebur: 0 Kochia: 0 James's Quarters: 0 Steele Elder, Burweed: 0 Mugwort, Common: 0 Nettle: 0 Plantain, Mongolian: 0 Rough Pigweed: 0 Chilean Thistle: 0 Short Ragweed: 0 Jakin, Sheep Red: 0 Cat Hair: 0 Cattle [...] Total Score: 10 06/19/ 025 11:16 AM NOVELTY MAKER documented as of this encounter Care Teams Screen Stretcher Relationship Specialty Start Date End Date Lynn Jacobs M.D. [address] [place] [address] [place] [address] PCP - General Family Medicine 04/03/24 documented as of this encounter
--- OUTSIDE RECORDS SUMMARY | 2024-08-25 17:47 | XMS_ITS | Encounter Summary ---
Author Organization [facility] Address [address] [place] [address] Care Team Providers Care Rate Clerk Passenger Name Role Phone Lynn Jacobs M.D. Primary Care Provider [phone] Encounter Details Date Type Department Care Team (Late st Contact Info) Description 08/09/2024 Results Follow-Up Department of Allergy in [place], [place] [address] [place] [phone] Reed Schmid M.D. [address] [place] [phone] Chicken Feathers, IgE, Chicken Droppings, IgE, Chicken Serum Proteins, IgE, Additional followed-up results: 5 Social History Tobacco Use Types Packs/Day Years Used Date Smoking Tobacco: Never Smokeless Tobacco: Never Alcohol Use Standard Drinks/Week Comments No 0 (1 standard drink = 0.6 oz pur e alcohol) [facility] Utilities Answer Date Recorded In the past 12 months has [facility] [employer] gas, oil, or water [employer] threatened to shut off services in your [...] any clubs o r organizations such as judaism groups, unions, fraternal or athletic groups, or [...] Answer Date Recorded PHQ-2 Score 5 06/19/2024 [facility] of Occupat ional Health - Occupational [...] Answer Date Recorded Employment status Unemployed/not in [employer] paid workforce and NOT seeking employment 06/28/2023 Housing Stability Answer Date Recorded What is your living situation today? I have a [facility] place to live 06/28/2023 Education Answer Date Recorded What is the highest level of school you have completed or the highest degree you have received? GED or equivalent Comments No Sex and Gender Information Value Date Recorded Sex Assigned at Female 06/28/2023 7:21 PM RN TELEMETRY Legal Sex Female 2:56 PM RN TELEMETRY Gender Identity Female 07/01/2019 7:57 PM RN TELEMETRY Sexual Orientation Straight 07/01/2019 7: 57 PM RN TELEMETRY documented as of this encounter Plan of Treatment Upcoming Encounters Date Type Department Care Team (Latest Contact Info) Description 08/28/2024 9:40 AM CDT Office Visit Department of Family Medicine, [facility], in [place], [place] 300 [place] [phone] Lynn Jacobs M.D. 300 [place] [phone] 09/07/2024 3:45 PM CDT Office Visit Department of Otorhinolaryngology in [place], [place] [address] [place] [phone] Julieta Brice M.D. [address] [place] [phone] 09/22/2024 10:00 AM CDT Appointment Department of Cardiovascular Diseases in [address] [phone] Yanick Cartwright APRN, C.N.P. [address] [phone] Discharge Disposition: Home or Self Care 09/22/2024 11:20 AM CDT Appointment Department of Laboratory Medicine in [address] [phone] Yanick Cartwright APRN, C.N.P. [address] [phone] 10/06/2024 7:30 AM CDT Clinical Communication Virtual Review in [place], [place] 200 [place] [address] 10/11/2024 2:50 PM CDT Comprehensive Visit Division of Gastroenterology in [place], [place] [address] [place] [phone] Krishan Jeffrey M.B.BJairS. [address] [place] [phone] 12/04/2024 2:00 PM CDT Office Visit Department of Family Medicine, [facility], in [place], [place] [address] [place] [phone] Wendy Robles APRN, C.N.P. [address] [place] [phone] documented as of this encounter Visit Diagnoses Not on filedocumented in this encounter Additional Health Concerns Assessment Noted Time PHQ-9 Depression Total Score: 10 025 11:16 AM RN TELEMETRY documented as of this encounter Care Teams Rate Clerk Passenger Relationship Specialty Start Date End Date Lynn Jacobs M.D. [address] [place] [address] [place] [phone] PCP - General Family Medicine 04/03/24 documented as of this encounter
--- OUTSIDE RECORDS SUMMARY | 2024-08-25 17:47 | XMS_ITS | Encounter Summary ---
Author Organization [facility] Address [address] [place] [address] Care Team Providers Care Mill Laborer Name Role Phone Lynn Jacobs M.D. Primary Care Provider [phone] Reason for Visit * Reason Comments Consult Allergic Rhinitis Shortness of Breath * Outpatient (Routine) - Closed Specialty Diagnoses / Procedures Referred By Contac t Referred To Contact Allergy and Immunology Diagnoses Allergy Seasonal Wendy Robles APRN, C.N.P. [address] [address] Phone: tel: fax: [facility] Region Referral ID Status Reason Start Date Expiration Date V isits Requested Visits Authorized [id number] Closed Specialty Services Required 06/22/2024 12/22/2025 1 1 Encounter Details Date Type Department Care Team (Latest Contact Info) Description 08/04/2024 9:15 AM CDT Comprehensive Visit Department of Allergy in [place], [place] [address] [place] [phone] Reed Schmid M.D. 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 1 to 4 times per year [...] Answer Date Recorded PHQ-2 Score 5 06/19/2024 [place] of Occupat ional Health - Occupational Stress [...] your living situation today? I have a [facility] place to live 06/28/2023 Education Answer Date Recorded What is the highest level of school you have completed or the highest degree you have received? GED or equivalent Comments No Sex and Gender Information Value Date Recorded Sex Assigned at Female 06/28/2023 7:21 PM DIRECTOR GLOBAL MEDICAL AFFAIRS Legal Sex Female 2:56 PM DIRECTOR [employer] MED[employer] AFFAIRS Gender Identity Female 07/01/2019 7:57 PM DIRECTOR GLO[employer] MED[employer] AFFAIRS Sexual Orientation Straight 07/01/2019 7: 57 PM DIRECTOR GLO[employer] MED[employer] AFFAIRS documented as of this encounter Last Filed [...] Body Mass Index 30.89 07/03/2024 11:14 AM DIRECTOR GLOBAL MEDICAL AFFAIRS documented in this encounter Consult Notes * [...] is accompanied by her today. An in-person machine sign writer was present for theentire visit. 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 [address] [place] [address] 09/07/2024 3:45 PM CDT Office Visit Department of Otorhinolaryngology in [place], [place] [address] [place] [phone] Julieta Brice M.D. [address] [place] [phone] 09/22/2024 10:00 AM CDT Appointment Department of Cardiovascular Diseases in [place], [place] [address] [place] [address] Yanick Cartwright APRN, C.N.P. [address] [place] [phone] Discharge Disposition: Home or Self Care 09/22/2024 11:20 AM CDT Appointment Department of Laboratory Medicine in [place], [place] [address] [place] [address] Yanick Cartwright APRN, C.N.P. [address] [address] 10/06/2024 7:30 AM CDT Clinical Communication Virtual Review in [place], [place] [address] [place] [address] 10/11/2024 2:50 PM CDT Comprehensive Visit Division of Gastroenterology in [place], [place] [address] [place] [phone] Krishan Jeffrey M.B.B.S. [address] [place] [phone] 12/04/2024 2:00 PM CDT Office Visit Department of Family Medicine, [facility], in [place], [place] [address] [place] [phone] Wendy Robles APRN, C.N.P. [address] [phone] documented as of this encounter Results * Immunoglobulin E (IgE) (08/04/2024 10:44 AM CDT) Immunoglobulin E (IgE), S 76.2 <=214 kU/L 08/07/2024 6:17 PM CDT [facility] Blood (Blood, Venous) 08/04/2024 10:44 AM CDT 08/07/2024 2:24 PM CDT Reed Schmid M.D. LAB BLOOD ADD-ON Final Resu lt Performing Organization Address City/[facility]/ZIP Co de Phone Number [facility] [address] [place] [address] [facility] [address] [place] [address] * Mouse Urine Protein, IgE (08/04/2024 10:44 AM CDT) Mouse Urine Protein, IgE <0.10 <0.70 kU/L 08/07/2024 6:17 PM CDT [facility] Comment:Class 0 (Negative <0 .10) Blood (Blood, Venous) 08/04/2024 10:44 AM CDT 08/07/2024 2:24 PM CDT Result [facility] Reed Schmid M.D. LAB BLOOD ADD-ON Final Resu lt Performing Organization Address [facility] Co de Phone Number [facility] [address] [place] [address] [facility] [address] [place] [address] * Mouse Serum Protein, IgE (08/04/2024 10:44 AM CDT) Mouse Serum Protein, IgE <0.10 <0.70 kU/L 08/07/2024 6:17 PM CDT [facility] Comment:Class 0 (Negative <0 .10) Blood (Blood, Venous) 08/04/2024 10:44 AM CDT 08/07/2024 2:24 PM CDT Reed Schmid M.D. LAB BLOOD ADD-ON Final Resu lt [facility] [address] [place] [address] [facility] [address] [place] [address] * Mouse Epithelium, IgE (08/04/2024 10:44 AM CDT) Mouse Epithelium, IgE <0.10 <0.70 kU/L 08/07/2024 6:16 PM CDT [facility] Comment:Class 0 (Negative <0 .10) Blood (Blood, Venous) 08/04/2024 10:44 AM CDT 08/07/2024 2:24 PM CDT Reed Schmid M.D. LAB BLOOD ADD-ON Final Resu lt [facility] [address] [place] [address] [facility] [address] [place] [address] * Burton Feathers, IgE (08/04/2024 10:44 AM CDT) [facility] Burton Feathers, IgE <0.10 <0.70 kU/L 08/07/2024 6:16 PM CDT [facility] Comment:Class 0 (Negative <0 .10) Blood (Blood, Venous) 08/04/2024 10:44 AM CDT 08/07/2024 2:24 PM CDT Reed Schmid M.D. LAB BLOOD ADD-ON Final Resu lt [facility] [address] [place] [address] [facility] [address] [place] [address] * Chicken Serum Proteins, IgE (08/04/2024 10:44 AM CDT) [facility] Chicken Serum Proteins, IgE <0.10 <0.70 kU/L 08/07/2024 6:28 PM CDT [facility] Comment: Class 0 (Negative <0.10) ----ADDITIONAL INFORMATION---- This test was developed and its performance characteristics determined by [facility] in a manner consistent with CLIA requirements. This test has not been cleared or approved by the U.S. Food and Drug Administration. Blood (Blood, Venous) 08/04/2024 10:44 AM CDT 08/07/2024 2:24 PM CDT Reed Schmid M.D. LAB BLOOD ADD-ON Final Resu lt Performing Organization Address [facility] Co de Phone Number [facility] [address] [place] [address] [facility] [address] [place] [address] * Chicken Droppings, IgE (08/04/2024 10:44 AM CDT) Chicken Droppings, IgE <0.10 <0.70 kU/L 08/07/2024 6:27 PM CDT [facility] Comment: Class 0 (Negative <0.10) ----ADDITIONAL INFORMATION---- This test was developed and its performance characteristics determined by [facility] in a manner consistent with CLIA requirements. This test has not been cleared or approved by the U.S. Food and Drug Administration. Blood (Blood, Venous) 08/04/2024 10:44 AM CDT 08/07/2024 2:24 PM CDT Reed Schmid M.D. LAB BLOOD ADD-ON Final Resu lt Performing Organization Address [facility] Co de Phone Number [facility] [address] [place] [address] [facility] [address] [place] [address] * Chicken Feathers, IgE (08/04/2024 10:44 AM CDT) Chicken Feathers, IgE <0.10 <0.70 kU/L 08/07/2024 6:16 PM CDT [facility] Comment:Class 0 (Negative <0 .10) Blood (Blood, Venous) 08/04/2024 10:44 AM CDT 08/07/2024 2:24 PM CDT Reed Schmid M.D. LAB BLOOD ADD-ON Final Resu lt [facility] [address] [place] [address] [facility] [address] 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 [address] [place] [phone] PCP - General Family Medicine 04/03/24 documented as of this encounter
--- OUTSIDE RECORDS SUMMARY | 2024-08-25 17:47 | XMS_ITS | Encounter Summary ---
Author Organization [facility] Address [address] [place] [address] Care Team Providers Care Clinical Rehabilitation Specialist Name Role Phone Lynn Jacobs M.D. Primary Care Provider [phone] Reason for Referral * Cardiovascular-Diagnostic (Routine) - Authorized Specialty Diagnoses / Procedures Referred By Contac t Referred To Contact Diagnoses Dyspnea On Exertion Palpitations Procedures Echo Transthoracic (TTE) Yanick Cartwright APRN, C.N.P. [address], [place] [address] Phone: tel: fax: [facility] Region Referral ID Status Reason Start Date Expiration Date V isits Requested Visits Authorized [id number] Authorized 07/28/2024 10/28/2025 1 1 Reason for Visit * Reason Comments Advice Only * Outpatient (Routine) - Closed Specialty Diagnoses / Procedures Referred By Contact Referred To Contact Cardiovascular Diseases / Cardiovascular Disease Diagnoses Hypertension Essential Primary Dyspnea On Exertion Krishan Jeffrey M.B.BJairS. [address] [place] [address] Phone: tel: fax: [facility] Region Referral ID Status Reason Start Date Expiration Date Visits Re quested Visits Authorized [id number] Closed 07/03/2024 01/02/2026 1 1 Encounter Details Date Type Department Care Team (Latest Contact Info) Description 07/28/2024 1:30 PM CDT Comprehensive Visit Department of Cardiovascular Diseases in [place], [place] [address] [place] [address] Yanick Cartwright, CINTHIA, C.N.P. [address] [place] [address] Palpitations (Primary Dx); Dyspnea On Exertion; Hypertension Essential Primary Social History Tobacco Use Types Packs/Day Years Used Date Smoking Tobacco: Never Smokeless Tobacco: Never Alcohol Use Standard Drinks/Week Comments No 0 (1 standard drink = 0.6 oz pur e alcohol) [facility] Utilities Answer Date Recorded In the past 12 months has e [employer], gas, oil, or water [employer] threatened to shut off services in your [...] any clubs o r organizations such as worship groups, unions, fraternal or athletic groups, or [...] Score 5 06/19/2024 [facility] - Occupational Stress Questionnaire Answer Date [...] Sex Assigned at Female 06/28/2023 7:21 PM FOILING MACHINE ADJUSTER Legal Sex Female 2:56 PM FOILING MACHINE ADJUSTER Gender Identity Female 07/01/2019 7:57 PM FOILING MACHINE ADJUSTER Sexual Orientation Straight 07/01/2019 7: 57 PM FOILING MACHINE ADJUSTER documented as of this encounter Last Filed [...] Body Mass Index 31.21 07/03/2024 11:14 AM FOILING MACHINE ADJUSTER documented in this encounter Consult Notes * Yanick Cartwright, CINTHIA, C.N.P. - 07/28/2024 1:30 PM CDT SUBJECTIVE CHIEF COMPLAINT/REASON FOR VISIT Palpitations, dizziness, shortness of breath REFERRAL SOURCE Krishan Jeffrey M.B.B.S. HISTORY OF PRESENT ILLNESS Liv Evans is seen today for consultation in the setting of recent symptoms that were mentioned to her block cleaner at a visit last month. She was seen today accompanied by her two young, energetic, children. She preferred to hand hamron on paper for communication today (deafness). She [...] sleep disordered breathing. She did wear a brass roller prior to her visit with me today, [...] future. An echocardiogram was ordered by her block cleaner but this has not been scheduled. CURRENT [...] Insecurity: No Food Insecurity (03/01/2024) [facility] Food Insecurity Do you worry your food will run out before you are able to buy more?: 1 Transportation Needs: No Transportation Needs (03/01/2024) [facility] Transportation Needs Does lack of transportation keep you from medical appointments?: 1 Does lack of transportation keep you from work, meetings or getting things that you need?: 1 Physical Activity: Sufficiently Active (06/28/2023) Exercise Vital Sign Days of Exercise per Week: 4 days Minutes of Exercise per Session: 40 min Intimate Partner Violence: Not At Risk (07/04/2019) [facility] Humiliation, Afraid, Rape, and Kick questionnaire Fear of Current or Ex-Partner: No Emotionally Abused: No Physically Abused: No Sexually Abused: No Housing Stability: Medium Risk (03/01/2024) [facility] Housing Stability What is your housing situation [...] Office Visit Department of Family Medicine, [facility], in [address] [phone] Lynn Jacobs M.D. [address] [place] [phone] 09/07/2024 3:45 PM CDT Office Visit Department of Otorhinolaryngology in [place], [place] [address] [place] [phone] Julieta Brice M.D. [address] [place] [phone] 09/22/2024 10:00 AM CDT Appointment Department of Cardiovascular Diseases in [place], [place] [address] [place] [address] Yanick Cartwright APRN, C.N.P. [address], [place] [address] Discharge Disposition: Home or Self Care 09/22/2024 11:20 AM CDT Appointment Department of Laboratory Medicine in [place], [place] [address] [place] [phone] Yanick Cartwright APRN, C.N.P. [address] [place] [phone] 10/06/2024 7:30 AM CDT Clinical Communication Virtual Review in [place], [place] [address] [place] [address] 10/11/2024 2:50 PM CDT Comprehensive Visit Division of Gastroenterology in [place], [place] [address] [place] [phone] Krishan Jeffrey M.B.BJairS. [address] [place] [phone] 12/04/2024 2:00 PM CDT Office Visit Department of Family Medicine, [facility], in [place], [place] [address] [phone] Wendy Robles APRN, C.N.P. [address] [phone] Scheduled Orders Name Type Priority Associated Diagnoses [...] Depression Total Score: 10 025 11:16 AM FOILING MACHINE ADJUSTER documented as of this encounter Care Teams Clinical Rehabilitation Specialist Relationship Specialty Start Date End Date Lynn Jacobs M.D. [address] [place] [phone] PCP - General Family Medicine 04/03/24 documented as of this encounter
--- OUTSIDE RECORDS SUMMARY | 2024-08-25 17:47 | XMS_ITS | Encounter Summary ---
Author Organization [facility] Address [address] [place] [address] Care Team Providers Care Process Safety Engineering Technologist Name Role Phone Lynn Jacobs M.D. Primary Care Provider [phone] Reason for Referral * Outpatient (Routine) - Closed Specialty Diagnoses / Procedures Referred By Contact Referred To Contact Cardiovascular Diseases / Cardiovascular Disease Diagnoses Hypertension Essential Primary Dyspnea On Exertion Krishan Jeffrey M.B.B.S. [address] [place] [address] Phone: tel: fax: [facility] Region Referral ID Status Reason Start Date Expiration Date Visits Re quested Visits Authorized [id number] Closed 07/03/2024 01/02/2026 1 1 EOTYPER HELPER Reason for Visit * Reason Onset Date Comments Triage 07/03/2024 Davina Ballard, # [phone] Encounter Details Date Type Department Care Team (Latest Contact Info) Description 07/03/2024 Clinical Communication Department of Cardiovascular Medicine in [place], [place] [address] [place] [phone] HammererZuhair M.D. Triage (Davina Ballard, # [phone]) Social History Tobacco Use Types Packs/Day Years Used Date Smoking Tobacco: Never Smokeless Tobacco: Never Alcohol Use Standard Drinks/Week Comments No 0 (1 standard drink = 0.6 oz pur e alcohol) [facility] Utilities Answer Date Recorded In the past 12 months has [employer], gas, oil, or water [employer] threatened to shut off services in your [...] often do you attend chur ch or quaker services? 1 to 4 times per year 07/01/2019 Do you belong to any clubs o r organizations such as bahai groups, unions, fraternal or athletic groups, or [...] Answer Date Recorded PHQ-2 Score 5 06/19/2024 [facility] of Occupat ional Health - Occupational [...] Sex Assigned at Female 06/28/2023 7:21 PM STEREOTYPER HELPER Legal Sex Female 2:56 PM STEREOTYPER HELPER Gender Identity Female 07/01/2019 7:57 PM STEREOTYPER HELPER Sexual Orientation Straight 07/01/2019 7: 57 PM STEREOTYPER HELPER documented as of this encounter Plan of Treatment Upcoming Encounters Date Type Department Care Team (Latest Contact Info) Description 08/28/2024 9:40 AM CDT Office Visit Department of Family Medicine, [facility], in [address] [phone] Lynn Jacobs M.D. [address] [place] [address] 09/07/2024 3:45 PM CDT Office Visit Department of Otorhinolaryngology in [place], [place] [address] [place] [phone] Julieta Brice M.D. [address] [place] [phone] 09/22/2024 10:00 AM CDT Appointment Department of Cardiovascular Diseases in [address] [phone] Yanick Cartwright APRN, C.N.P. [address] [phone] Discharge Disposition: Home or Self Care 09/22/2024 11:20 AM CDT Appointment Department of Laboratory Medicine in [address] [phone] Yanick Cartwright APRN, C.N.P. [address] [phone] 10/06/2024 7:30 AM CDT Clinical Communication Virtual Review in [place], [place] [address] [place] [phone] 10/11/2024 2:50 PM CDT Comprehensive Visit Division of Gastroenterology in [place], [place] [address] [place] [phone] Krishan Jeffrey M.B.BJairS. [address] [place] [address] 12/04/2024 2:00 PM CDT Office Visit Department of Family Medicine, [facility], in [place], [place] [address] [phone] Wendy Robles APRN, C.N.P. [address], [place] [phone] Scheduled Referrals Name Type Priority Associated Diagnoses Order Schedule Cardiovascular Disease - General cardiology consult (clinic) Outpatient Referral Routine Hypertension Essential Primary Dyspnea On Exertion Expected: 07/03/2024, Expires: 09/30/2025 documented as of this encounter Visit Diagnoses Diagnosis Hypertension Essential Primary- Primary Dyspnea On Exertion documented in this encounter Additional Health Concerns Assessment Noted Time PHQ-9 Depression Total Score: 10 025 11:16 AM STEREOTYPER HELPER documented as of this encounter Care Teams Process Safety Engineering Technologist Relationship Specialty Start Date End Date Lynn Jacobs M.D. [address] [place] [phone] PCP - General Family Medicine 04/03/24 documented as of this encounter
--- OUTSIDE RECORDS SUMMARY | 2024-08-25 17:47 | XMS_ITS | Encounter Summary ---
Author Organization [facility] Address [address] [place] [address] Care Team Providers Care Ultrasound Technol Name Role Phone Lynn Jacobs M.D. Primary Care Provider [phone] Reason for Referral * Outpatient (Routine) - Authorized Specialty Diagnoses / Procedures Referred By Peri gaytan Referred To Contact Otorhinolaryngology Diagnoses Vocal Cord Disease Lynn Jacobs M.D. [address] [place] [address] Phone: tel: fax: [facility] Region Referral ID Status Reason Start Date Expiration Date Visits Requested Visits Authorized [id number] Authorized Specialty Services Required 08/17/2024 02/16/2026 1 1 Encounter Details Date Type Department Care Team (Late st Contact Info) Description 08/17/2024 Orders Only Department of Family Medicine, [facility], in [place], [place] [address] [place] [address] Lynn Jacobs M.D. [address] [place] [address] Vocal Cord Disease (Primary Dx) Social History Tobacco Use Types Packs/Day Years Used Date Smoking Tobacco: Never Smokeless Tobacco: Never Alcohol Use Standard Drinks/Week Comments No 0 (1 standard drink = 0.6 oz pur e alcohol) [facility] Utilities Answer Date Recorded In the past 12 months has th e electric, [employer], oil, or water [employer] threatened to shut off services in your [...] any clubs o r organizations such as jain groups, unions, fraternal or athletic groups, or [...] Answer Date Recorded PHQ-2 Score 5 06/19/2024 [facility] Occupat ional Health - Occupational Stress [...] your living situation today? I have a [facility] place to live 06/28/2023 Education Answer Date Recorded What is the highest level of school you have completed or the highest degree you have received? GED or equivalent Comments No Sex and Gender Information Value Date Recorded Sex Assigned at Female 06/28/2023 7:21 PM COOK 3 PASTRY Legal Sex Female 2:56 PM COOK 3 PASTRY Gender Identity Female 07/01/2019 7:57 PM COOK 3 PASTRY Sexual Orientation Straight 07/01/2019 7: 57 PM COOK 3 PASTRY documented as of this encounter Plan of Treatment Upcoming Encounters Date Type Department Care Team (Latest Contact Info) Description 08/28/2024 9:40 AM CDT Office Visit Department of Family Medicine, [facility], in [address] [phone] Lynn Jacobs M.D. [address] [place] [address] 09/07/2024 3:45 PM CDT Office Visit Department of Otorhinolaryngology in [place], [place] [address] [place] [phone] Julieta Brice M.D. [address] [place] [phone] 09/22/2024 10:00 AM CDT Appointment Department of Cardiovascular Diseases in [address] [phone] Yanick Cartwright APRN, C.N.P. [address] [place] [phone] Discharge Disposition: Home or Self Care 09/22/2024 11:20 AM CDT Appointment Department of Laboratory Medicine in [address] [phone] Yanick Cartwright APRN, C.N.P. [address] [phone] 10/06/2024 7:30 AM CDT Clinical Communication Virtual Review in [place], [place] [address] [place] [phone] 10/11/2024 2:50 PM CDT Comprehensive Visit Division of Gastroenterology in [place], [place] [address] [place] [phone] Krishan Jeffrey M.B.B.S. [address] [place] [address] 12/04/2024 2:00 PM CDT Office Visit Department of Family Medicine, [facility], in [place], [place] [address] [place] [address] Wendy Robles APRN, C.N.P. [address] [place] [phone] Scheduled Referrals Name Type Priority Associated Diagnoses Order Schedule [facility] Otorhinolaryngology - General consult (clinic) Outpatient Referral Routine Vocal Cord Disease Expected: 08/17/2024, Expires: 11/16/2025 documented as of this encounter Visit Diagnoses Diagnosis Vocal Cord Disease- Primary documented in this encounter Additional Health Concerns Assessment Noted Time PHQ-9 Depression Total Score: 10 025 11:16 AM COOK 3 PASTRY documented as of this encounter Care Teams Ultrasound Technol Relationship Specialty Start Date End Date Lynn Jacobs M.D. [address] [place] [phone] PCP - General Family Medicine 04/03/24 documented as of this encounter
--- OUTSIDE RECORDS SUMMARY | 2024-08-25 17:47 | XMS_ITS | Encounter Summary ---
Author Organization [facility] Address [address] [place] [address] Care Team Providers Care Spot Man Name Role Phone Lynn Jacobs M.D. Primary Care Provider [phone] Reason for Visit * Reason Onset Date Comments Appt Request 06/23/2024 Encounter Details Date Type Department Care Team (Latest Contact Info) Description 06/23/2024 Clinical Communication Department of Otorhinolaryngology in [place], [place] [address] [place] [phone] Julieta Brice M.D. [address] [place] [phone] Appt Request Social History Tobacco Use Types Packs/Day Years Used Date Smoking Tobacco: Never Smokeless Tobacco: Never Alcohol Use Standard Drinks/Week Comments No 0 (1 standard drink = 0.6 oz pur e alcohol) [facility] Utilities Answer Date Recorded In the past 12 months has [facility] [employer], gas, oil, or water [employer] threatened to shut off services in your [...] How often do you attend chur or latter-day services? 1 to 4 times [...] Date Recorded PHQ-2 Score 5 06/19/2024 [facility] of Occupat ionwy Health - Occupational Stress Questionnaire Answer Date [...] your living situation today? I have a [facility] place to live 06/28/2023 Education Answer Date Recorded What is the highest level of school you have completed or the highest degree you have received? GED or equivalent Comments No Sex and Gender Information Value Date Recorded Sex Assigned at Female 06/28/2023 7:21 PM MORTGAGE LOAN REVIEWER Legal Sex Female 2:56 PM MORTGAGE LOAN REVIEWER Gender Identity Female 07/01/2019 7:57 PM MORTGAGE LOAN REVIEWER Sexual Orientation Straight 07/01/2019 7: 57 PM MORTGAGE LOAN REVIEWER documented as of this encounter Plan of Treatment Upcoming Encounters Date Type Department Care Team (Latest Contact Info) Description 08/28/2024 9:40 AM CDT Office Visit Department of Family Medicine, [facility], in [place], [place] 300 [place] [phone] Lynn Jacobs M.D. 300 [place] [phone] 09/07/2024 3:45 PM CDT Office Visit Department of Otorhinolaryngology in [place], [place] [address] [place] [phone] Julieta Brice M.D. [address] [place] [phone] 09/22/2024 10:00 AM CDT Appointment Department of Cardiovascular Diseases in [address] [phone] Yanick Cartwright APRN, C.N.P. [address] [phone] Discharge Disposition: Home or Self Care 09/22/2024 11:20 AM CDT Appointment Department of Laboratory Medicine in [place], [place] [address] [place] [phone] Yanick Carwtright APRN, C.N.P. [address] [phone] 10/06/2024 7:30 AM CDT Clinical Communication Virtual Review in [place], [place] 200 [place] [phone] 10/11/2024 2:50 PM CDT Comprehensive Visit Division of Gastroenterology in [place], [place] [address] [place] [phone] Krishan Jeffrey M.B.BJairS. [address] [place] [phone] 12/04/2024 2:00 PM CDT Office Visit Department of Family Medicine, [facility] [place], in [place], [place] [address] [place] [phone] Wendy Robles APRN, C.N.P. [address] [phone] documented as of this encounter Visit Diagnoses Not on filedocumented in this encounter Additional Health Concerns Assessment Noted Time PHQ-9 Depression Total Score: 10 025 11:16 AM MORTGAGE LOAN REVIEWER documented as of this encounter Care Teams Spot Man Relationship Specialty Start Date End Date Lynn Jacobs M.D. [address] [place] [phone] PCP - General Family Medicine 04/03/24 documented as of this encounter
--- OUTSIDE RECORDS SUMMARY | 2024-08-25 17:47 | XMS_ITS | Clinical Summary ---
Author Organization [facility] Address [address] [place] [address] Care Team Providers Care Machine Filler Shredder Name Role Phone Yinka Hankins MD Unavailable [phone] Brinda Cordero MD Primary Care Provider [phone] Mouna Marroquin RN Unavailable Allergies Active Allergy Reactions Criticality Noted Date Comments Latex Itching 01/04/2008 Pt reports a little tightness with breathing and itching Penicillins Hives 01/04/2008 Sulfamethoxazole-Trimethopr im 06/04/2008 Medications Isbfxbzi-Ob-Bwa -Fe-FA tab tablet Take 1 Tablet by [...] 04/07/2022 Obesity affecting , antepartum 04/24/2021 04/07/2022 [facility] Supervision of high-risk 03/11/2021 04/07/2022 Overview (03/11/2021): [facility] CONSULTATION ON 03/17/21 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 Estimated Date of Delivery: 09/10/21 Deaf - non speaking PCOS Infertility HTN - no meds Asthma Hx Migraines OB Hx: 2019 PTD 35w6d - PPROM, GDMA1 2013 PTD 34w1d - PPROM 30w4d (transfer from [facility] - [facility] assumed care) LAST GROWTH: 03/10/21 13w5d 01/21/21 6w2d REFERRING PHYSICIAN/PHONE/LAST UPDATE: Brinda Cordero MD [place] Primary MD approves scheduling of recommended ultrasounds/testing: [...] she is able to communicate through written Italian COVID-19 affecting in second trimester 04/07/2022 Large for gestational age fe tus affecting management of mother, antepartum, first trimester, not applicable or unspecified fetus 04/07/2022 Short cervix 04/07/2022 Immunizations Immunization Administration Dates Next Due COVID-19 vaccine ([employer]Beacon NTech 30mcg/0.3mL) 12YO+ BIVALENT PF, MDV 04/07/2022 COVID-19 vaccine ([employer] 30mcg/0.3mL) PF, MDV 02/26/2021,02/05/2021 DTP 12/05/1993, 1,1988,1988,1988 [...] Date Recorded PHQ-2 TOTAL SCORE 0 12/18/2021 [facility] of Occupat [...] on file Legal Sex Female 6:49 AM SOLID FIBER PASTER OPERATOR Gender Identity Not on file Sexual [...] g 8 9 NEGRET E,BG Ahanya Delivery Location:[facility] Comments:pPROM at 30 4 /7 weeks 2019 35w 6d 2.27 kg (5 lb) F Vag None Y Livin g Brady n Delivery Location:[facility] ( [facility]) Last Filed Vital Signs Vital Sign Reading [...] of high risk in first trimester (HC) SUPERVISOR DUMPING THIN PREP PAP SCREEN IMAGED Routine 05/16/2019 11:35 AM SOLID FIBER PASTER OPERATOR Pap smear for cervical cancer screening from Last 3 Months or Most Recently Relevant to Health Maintenance Results * ANTI HCV (03/05/2021 9:54 AM CDT) Pathologist [facility] HEPATITIS C ANTIBODY Non-React kushal Non-React kushal 03/05/2021 6:03 PM CDT [facility] Comment:Antibodies to HCV no t detected; does not exclude the possibility of exposure to HCV. Blood BLOOD SPECIMEN / Unknown Venipuncture / Unknown 03/05/2021 9:54 AM CDT 03/05/2021 9:54 AM CDT us Brinda Cordero MD SEND OUTS Final Resul t [facility] [address] [place] [address], [place] * ANTI HIV 1/2 (03/05/2021 9:54 AM CDT) HIV-1/HIV-2 ANTIBODY Non-Reacti ve Non-Reacti ve 03/05/2021 5:57 PM CDT [facility] Comment:HIV-1 p24 and HIV-1/ HIV-2 Ab not detected. Blood BLOOD SPECIMEN / Unknown Venipuncture / Unknown 03/05/2021 9:54 AM CDT 03/05/2021 9:54 AM CDT us Brinda Cordero MD SEND OUTS Final Resul t [facility] [address] [place] [address], [place] * SUPERVISOR DUMPING THIN PREP PAP SCREEN IMAGED (05/16/2019 11:35 AM SOLID FIBER PASTER OPERATOR) Case Report Gynecologic Cytology Report Case: [id number] Authorizing Provider: Maribell Hong NP Collected: 05/16/2019 1135 Ordering Location: [facility] Received: 05/16/2019 1135 Clinic First Screen: Beckie Jay Specimen: SUPERVISOR DUMPING ThinPrep Vial Screening, Cervical 05/25/2019 9:28 AM SOLID FIBER PASTER OPERATOR [facility] INTERPRETATION/ RESULT NEGATIVE FOR INTRAEPITHELIAL LESION OR MALIGNANCY (NIL) (none) 05/25/2019 9:28 AM SOLID FIBER PASTER OPERATOR [facility] at 0928 SOLID FIBER PASTER OPERATOR SPECIMEN ADEQUACY Satisfactory for evaluation Endocervical component present 05/25/2019 9:28 AM SOLID FIBER PASTER OPERATOR [facility] HPV REQUEST HPV if ASCUS 05/25/2019 9:28 AM SOLID FIBER PASTER OPERATOR [facility] Date of LMP 04/14/2019 05/25/2019 9:28 AM SOLID FIBER PASTER OPERATOR [facility] Last Pap Date 01/14/17 05/25/2019 9:28 AM SOLID FIBER PASTER OPERATOR [facility] Last Pap Result NIL 0 9:28 AM SOLID FIBER PASTER OPERATOR [facility] Abnormal Pap or Aynor Bx in last 5 years No 05/25/2019 9:28 AM SOLID FIBER PASTER OPERATOR [facility] Menstrual Status Regular Periods 05/25/2019 9:28 AM SOLID FIBER PASTER OPERATOR [facility] Aynor Bx Done Today No 05/25/2019 9:28 AM SOLID FIBER PASTER OPERATOR [facility] Additional Information None given 05/25/2019 9:28 AM SOLID FIBER PASTER OPERATOR [facility] Comment: Cytology is screened at [facility] - [address], [place] [address] and [facility] - [address], [place] [address] and [facility] - [address] [place] [address] Interpreted at [facility] - [address], [place] [address] Automated Review Successful 05/25/2019 9:28 AM SOLID FIBER PASTER OPERATOR [facility] Comment:Specimen processed s uccessfully by automated check totaler device, ThinPrep Imaging System, [employer] Note The pap test is a screening technique, not a diagnostic procedure. It is used primarily to screen for squamous cancers and precursor lesions. Published studies have shown that it is subject to both false negative and false positive results. The pap test should not be used as the sole means to diagnose or exclude pre-malignant and malignant lesions. 05/25/2019 9:28 AM [facility] Other (Cervical) Non-Blood / Unknown 05/16/2019 11:35 AM SOLID FIBER PASTER OPERATOR 05/16/2019 11:35 AM SOLID FIBER PASTER OPERATOR Maribell Hong NP PATHOLOGY/CYTOLOGY Final Result [facility] [address] [place] [address], [place] from Last 3 Months or Most [...] Comments Code Status Discussion: Discussed Care Teams Machine Filler Shredder Relationship Specialty Start Date End Date Brinda Cordero MD [address] [place] [address] PCP - General Family Practice 02/26/21 Yinka Hankins MD [address] [place] [address] Rheumatology Rheumatology 12/10/15 Mouna Marroquin RN [address] [place] [address] Ophthalmic Medical Technician 06/19/21
--- OUTSIDE RECORDS SUMMARY | 2024-08-25 17:47 | XMS_ITS | Encounter Summary ---
Author Organization [facility] Address [address] [place] [address] Care Team Providers Care Records Officer Name Role Phone Lynn Jacobs M.D. Primary Care Provider [phone] Encounter Details Date Type Department Care Team (Latest Contact Info) Description 08/04/2024 10:37 AM CDT - 08/04/2024 11:59 PM CDT Hospital Encounter Department of Laboratory Medicine in [place], [place] [address] [place] [phone] Reed Schmid M.D. [address] [place] [phone] Rhinitis Allergic Discharge Disposition: Home or Self Care Social History Tobacco Use Types Packs/Day Years Used Date Smoking Tobacco: Never Smokeless Tobacco: Never Alcohol Use Standard Drinks/Week Comments No 0 (1 standard drink = 0.6 oz pur e alcohol) [facility] Utilities Answer Date Recorded In the past 12 months has [employer], oil, or water [employer] threatened to shut off services in your [...] How often do you attend chur or yazidism services? 1 to 4 times per year [...] Answer Date Recorded PHQ-2 Score 5 06/19/2024 [facility] of Occupat ional Health - Occupational [...] Sex Assigned at Female 06/28/2023 7:21 PM INCOME TAX ANALYST Legal Sex Female 2:56 PM INCOME TAX ANALYST Gender Identity Female 07/01/2019 7:57 PM INCOME TAX ANALYST Sexual Orientation Straight 07/01/2019 7: 57 PM INCOME TAX ANALYST documented as of this encounter Medications at [...] Office Visit Department of Family Medicine, [facility], in [address] [phone] Lynn Jacobs M.D. 300 [place] [phone] 09/07/2024 3:45 PM CDT Office Visit Department of Otorhinolaryngology in [place], [place] [address] [place] [phone] Julieta Brice M.D. [address] [place] [address] 09/22/2024 10:00 AM CDT Appointment Department of Cardiovascular Diseases in [place], [place] 300 [place] [phone] Yanick Cartwright APRN, C.N.P. [address] [place] [phone] Discharge Disposition: Home or Self Care 09/22/2024 11:20 AM CDT Appointment Department of Laboratory Medicine in [place], [place] [address] [place] [phone] Yanick Cartwright APRN, C.N.P. [address], [place] [phone] 10/06/2024 7:30 AM CDT Clinical Communication Virtual Review in [place], [place] [address] [place] [address] 10/11/2024 2:50 PM CDT Comprehensive Visit Division of Gastroenterology in [place], [place] [address] [place] [address] Krishan Jeffrey M.B.B.S. [address] [place] [address] 12/04/2024 2:00 PM CDT Office Visit Department of Family Medicine, [facility], in [place], [place] [address], [place] [address] Wendy Robles APRN, C.N.P. [address] [place] [phone] documented as of this encounter [...] 76.2 <=214 kU/L 08/07/2024 6:17 PM CDT [facility] Blood (Blood, Venous) 08/04/2024 10:44 AM CDT 08/07/2024 2:24 PM CDT Reed Schmid M.D. LAB BLOOD ADD-ON Final Resu lt [facility] SUPPORT PEARL [address] [place] [address] [facility] [address] [place] [address] * Mouse Urine Protein, IgE (08/04/2024 10:44 AM CDT) Pathologist [facility] Mouse Urine Protein, IgE <0.10 <0.70 kU/L 08/07/2024 6:17 PM CDT [facility] Comment:Class 0 (Negative <0 .10) Blood (Blood, Venous) 08/04/2024 10:44 AM CDT 08/07/2024 2:24 PM CDT Reed Schmid M.D. LAB BLOOD ADD-ON Final Resu lt [facility] [address] [place] [address] [facility] [address] [place] [address] * Mouse Serum Protein, IgE (08/04/2024 10:44 AM CDT) Mouse Serum Protein, IgE <0.10 <0.70 kU/L 08/07/2024 6:17 PM CDT [facility] Comment:Class 0 (Negative <0 .10) Blood (Blood, Venous) 08/04/2024 10:44 AM CDT 08/07/2024 2:24 PM CDT Reed Schmid M.D. LAB BLOOD ADD-ON Final Resu lt Performing Organization Address City/[facility] Co de Phone Number [facility] [address] [place] [address] [facility] [address] [place] [address] * Mouse Epithelium, IgE (08/04/2024 10:44 AM CDT) Mouse Epithelium, IgE <0.10 <0.70 kU/L 08/07/2024 6:16 PM CDT [facility] Comment:Class 0 (Negative <0 .10) Blood (Blood, Venous) 08/04/2024 10:44 AM CDT 08/07/2024 2:24 PM CDT Reed Schmid M.D. LAB BLOOD ADD-ON Final Resu lt Performing Organization Address City/[facility]/ZIP Co de Phone Number [facility] [address] [place] [address] [facility] [address] [place] [address] * Blackstone Feathers, IgE (08/04/2024 10:44 AM CDT) Blackstone Feathers, IgE <0.10 <0.70 kU/L 08/07/2024 6:16 PM CDT [facility] Comment:Class 0 (Negative <0 .10) Blood (Blood, Venous) 08/04/2024 10:44 AM CDT 08/07/2024 2:24 PM CDT Reed Schmid M.D. LAB BLOOD ADD-ON Final Resu lt Performing Organization Address [facility] Co de Phone Number [facility] [address] [place] [address] [facility] [address] [place] [address] * Chicken Serum Proteins, IgE (08/04/2024 10:44 AM CDT) Pathologist [facility] Chicken Serum Proteins, IgE <0.10 <0.70 kU/L 08/07/2024 6:28 PM CDT [facility] Comment: Class 0 (Negative <0.10) ----ADDITIONAL INFORMATION---- This test was developed and its performance characteristics determined by [facility] in a manner consistent with CLIA requirements. This test has not been cleared or approved by the U.S. Food and Drug Administration. Blood (Blood, Venous) 08/04/2024 10:44 AM CDT 08/07/2024 2:24 PM CDT Reed Schmid M.D. LAB BLOOD ADD-ON Final Resu lt Performing Organization Address City/[facility]/ZIP Co de Phone Number [facility] [address] [place] [address] [facility] [address] [place] [address] * Chicken Droppings, IgE (08/04/2024 10:44 AM CDT) Chicken Droppings, IgE <0.10 <0.70 kU/L 08/07/2024 6:27 PM CDT [facility] Comment: Class 0 (Negative <0.10) ----ADDITIONAL INFORMATION---- This test was developed and its performance characteristics determined by [facility] in a manner consistent with CLIA requirements. This test has not been cleared or approved by the U.S. Food and Drug Administration. Blood (Blood, Venous) 08/04/2024 10:44 AM CDT 08/07/2024 2:24 PM CDT Reed Schmid M.D. LAB BLOOD ADD-ON Final Resu lt Performing Organization Address [facility]/ZIP Co de Phone Number [facility] [address] [place] [address] [facility] [address] [place] [address] [place] [address] * Chicken Feathers, IgE (08/04/2024 10:44 AM CDT) Chicken Feathers, IgE <0.10 <0.70 kU/L 08/07/2024 6:16 PM CDT [facility] Comment:Class 0 (Negative <0 .10) Blood (Blood, Venous) 08/04/2024 10:44 AM CDT 08/07/2024 2:24 PM CDT Result [facility] Reed Schmid M.D. LAB BLOOD ADD-ON Final Resu lt Performing Organization Address [facility] Co de Phone Number [facility] [address] [place] [address] [place] [address] documented in this encounter Visit Diagnoses Diagnosis Rhinitis Allergic documented in this encounter Additional Health Concerns Assessment Noted Time PHQ-9 Depression Total Score: 10 025 11:16 AM INCOME TAX ANALYST documented as of this encounter Care Teams Records Officer Relationship Specialty Start Date End Date Lynn Jacobs M.D. [address] [place] [address] [place] [address] PCP - General Family Medicine 04/03/24 documented as of this encounter
--- OUTSIDE RECORDS SUMMARY | 2024-08-25 17:47 | XMS_ITS | Encounter Summary ---
Author Organization [facility] Address [address] [place] [address] Care Team Providers Care Director Of Pupil Personnel Program Name Role Phone Lynn Jacobs M.D. Primary Care Provider [phone] Reason for Visit * Reason Comments Allergy Testing * Outpatient (Routine) - Closed Specialty Diagnoses / Procedures Referred By Peri gaytan Referred To Contact Diagnoses Rhinitis Allergic Procedures Northern Skin Test Reed Schmid M.D. [address] [phone] Phone: tel: fax: [facility] Region Referral ID Status Reason Start Date Expiration Date Visits Re quested Visits Authorized [id number] Closed 07/17/2024 10/17/2025 1 1 Encounter Details Date Type Department Care Team (Latest Contact Info) Description 08/04/2024 9:30 AM CDT Clinical Support Department of Allergy in [place], [place] [address] [phone] Reed Schmid M.D. [address] [address] Katherine Cha, RJairNJair [address] [phone] Rhinitis Allergic Discharge Disposition: Home or Self Care Social History Tobacco Use Types Packs/Day Years Used Date Smoking Tobacco: Never Smokeless Tobacco: Never Alcohol Use Standard Drinks/Week Comments No 0 (1 standard drink = 0.6 oz pur e alcohol) [facility] Utilities Answer Date Recorded In the past 12 months has th e [employer], oil, or water [employer] threatened to shut off services in your [...] often do you attend chur ch or christianity services? 1 to 4 times per year 07/01/2019 Do you belong to any clubs o r organizations such as sabianist groups, unions, fraternal or athletic groups, or [...] Answer Date Recorded PHQ-2 Score 5 06/19/2024 [facility] Occupat ional Health - Occupational Stress [...] Sex Assigned at Female 06/28/2023 7:21 PM DRIER TENDER Legal Sex Female 2:56 PM DRIER TENDER Gender Identity Female 07/01/2019 7:57 PM DRIER TENDER Sexual Orientation Straight 07/01/2019 7: 57 PM DRIER TENDER documented as of this encounter Procedure Notes * Katherine Cha R.N. - 08/04/2024 9:30 AM CDTAssociated Order(s): ALI BASIC SKIN TEST; ALI NORTHERN SKIN TEST Panel Skin Tests Flowsheet Row Clinical Support from 08/04/2024 in Department of Allergy in [place], [place] Controls Histamine (15 min W/F) 9x9w/f Glycerine (15 min W/F) 0 [place] Basic Adult Panel Austin, White: 0 Tacho, White: 0 Birch: 0 Buffalo, Red: 0 Converse, Eastern: 0 Suncook: 0 Riverbank: 0 Woodruff, Shagbark: 0 Maple: 0 Cardale, White: 0 Debary, Black: 0 [place]: 0 Hancock, White: 0 Medford: 0 Yale, Faroese: 0 Ashton, Black: 0 Jerome: 0 Bermuda: 7x7f Kentucky Blue: 0 Orchard: 0 Quack: 7x7f Red Lovell: 0 Franco: 0 Cocklebur: 0 Kochia: 0 James's Quarters: 0 Steele Elder, Burweed: 0 Mugwort, Common: 0 Nettle: 0 Plantain, Moroccan: 0 Rough Pigweed: 0 Romanian Thistle: 0 Short Ragweed: 0 [place], Sheep Red: 0 Cat Hair: 0 Cattle [...] Office Visit Department of Family Medicine, [facility], in [address] [phone] Lynn Jacobs M.D. [address] [place] [address] 09/07/2024 3:45 PM CDT Office Visit Department of Otorhinolaryngology in [place], [place] [address] [place] [phone] Julieta Brice M.D. [address] [place] [phone] 09/22/2024 10:00 AM CDT Appointment Department of Cardiovascular Diseases in [address] [phone] Yanick Cartwright APRN, C.N.P. [address] [phone] Discharge Disposition: Home or Self Care 09/22/2024 11:20 AM CDT Appointment Department of Laboratory Medicine in [address] [phone] Yanick Cartwright APRN, C.N.P. [address] [phone] 10/06/2024 7:30 AM CDT Clinical Communication Virtual Review in [place], [place] [address] [place] [phone] 10/11/2024 2:50 PM CDT Comprehensive Visit Division of Gastroenterology in [place], [place] [address] [place] [phone] Krishan Jeffrey M.B.B.S. [address] [place] [address] 12/04/2024 2:00 PM CDT Office Visit Department of Family Medicine, [facility], in [place], [place] [address] [place] [address] Wendy Robles APRN, C.N.P. [address] [place] [address] documented as of this encounter [...] from 08/04/2024 in Department of Allergy in [place], [place] Controls Histamine (15 min W/F) 9x9w/f Glycerine (15 min W/F) 0 [place] Basic Adult Panel Austin, White: 0 Tacho, White: 0 Birch: 0 Buffalo, Red: 0 Converse, Eastern: 0 Suncook: 0 Riverbank: 0 Woodruff, Shagbark: 0 Maple: 0 Cardale, White: 0 Debary, Black: 0 [place]: 0 Hancock, White: 0 [place]: 0 Yale, Faroese: 0 Ashton, Black: 0 Jerome: 0 B[place]: 7x7f Kentucky Blue: 0 Orchard: 0 Quack: 7x7f Red Lovell: 0 Franco: 0 Cocklebur: 0 Kochia: 0 James's Quarters: 0 Steele Elder, Burweed: 0 Mugwort, Common: 0 Nettle: 0 Plantain, Moroccan: 0 Rough Pigweed: 0 Romanian Thistle: 0 Short Ragweed: 0 [place], Sheep Red: 0 Cat Hair: 0 Cattle [...] M.D. PROCEDURE/MINOR SURGICAL OR DERABLES Final Result [facility] NA * Basic Skin Test (08/04/2024 9:30 AM CDT) Narrative MMODAL - 08/04/2024 9:30 AM CDT Katherine Cha R.N. 08/04/2024 10:55 AM Panel Skin Tests Flowsheet Row Clinical Support from 08/04/2024 in Department of Allergy in [place], [place] Controls Histamine (15 min W/F) 9x9w/f Glycerine (15 min W/F) 0 [place] Basic Adult Panel Austin, White: 0 Tacho, White: 0 Birch: 0 Buffalo, Red: 0 Converse, Eastern: 0 Suncook: 0 Riverbank: 0 Woodruff, Shagbark: 0 Maple: 0 Cardale, White: 0 Debary, Black: 0 [place]: 0 H[place], White: 0 [place]: 0 Yale, Faroese: 0 Ashton, Black: 0 Jerome: 0 B[place]uda: 7x7f [place] Blue: 0 Orchard: 0 Quack: 7x7f Red Lovell: 0 Franco: 0 Cocklebur: 0 Kochia: 0 James's Quarters: 0 Steele Elder, Burweed: 0 Mugwort, Common: 0 Nettle: 0 Plantain, Moroccan: 0 Rough Pigweed: 0 Romanian Thistle: 0 Short Ragweed: 0 [place], Sheep Red: 0 Cat Hair: 0 Cattle [...] Depression Total Score: 10 025 11:16 AM DRIER TENDER documented as of this encounter Care Teams Director Of Pupil Personnel Program Relationship Specialty Start Date End Date Lynn Jacobs M.D. [address] [place] [address] [place] [phone] PCP - General Family Medicine 04/03/24 documented as of this encounter
--- OUTSIDE RECORDS SUMMARY | 2024-08-25 17:48 | XMS_ITS | Clinical Summary ---
Author Organization [facility] Address [address] [place] [address] Care Team Providers Care Shipping/Receiving Manager Name Role Phone Lynn Jacobs M.D. Primary Care Provider [phone] Source Comments Patient records contain information from all sites at [facility]. For routine questions regarding patient records, call [phone] during business hours, M-F 8:00 AM - 5:00 PM Central Time. Record requests for emergency care only can be directed to [phone] at any time.[facility] Allergies Active Allergy Reactions Criticality Noted [...] original. OB education completed. Pre-reg completed at [facility]. LMP:05/18/2019 EDC:02/22/2020 provider:Dr. Memo KING involved:, Jaxson [...] 08/17/2024 Orders Only Department of Family Medicine, [facility], in [place], [place] [address] [place] [address] Lynn Jacobs M.D. Vocal Cord Disease (Primary Dx) 08/09/2024 Results Follow-Up Department of Allergy in [place], [place] [address] [place] [address] Reed Schmid M.D. Chicken Feathers, IgE, Chicken Droppings, IgE, Chicken Serum Proteins, IgE, Additional followed-up results: 5 08/04/2024 10:37 AM CDT - 08/04/2024 11:59 PM CDT Hospital Encounter Department of Laboratory Medicine in [place], [place] [address] [place] [address] Reed Schmid M.D. Rhinitis Allergic Discharge Disposition: Home or Self Care 08/04/2024 9:30 AM CDT Clinical Support Department of Allergy in [place], [place] [address] [place] [address] Reed Schmid M.D. Juenger, Carrie J, RMarek Rhinitis Allergic Discharge Disposition: Home or Self Care 08/04/2024 9:15 AM CDT Comprehensive Visit Department of Allergy in [place], [place] [address] [place] [address] Reed Schmid M.D. Rhinitis Allergic Dust Mite (Primary Dx); Motion Vocal Fold Paradoxical; Rhinitis Allergic Due To Outdoor Pollen Discharge Disposition: Home or Self Care 07/28/2024 1:30 PM CDT Comprehensive Visit Department of Cardiovascular Diseases in [place], [place] [address] [place] [phone] Yanick Cartwright, CINTIHA, C.N.PJair Palpitations (Primary Dx); Dyspnea On Exertion; Hypertension Essential Primary 07/14/2024 Clinical Communication Department of Allergy in [place], [place] [address] [place] [address] Emmy Caraballo, L.P.NJair Previsit Preparation 07/05/2024 2:01 PM HANDS PARTER - 07/05/2024 11:59 PM HANDS PARTER Hospital Encounter Department of Cardiovascular Diseases in [place], [place] [address] [place] [phone] Babar Jc M.D. Tachycardia Discharge Disposition: Home or Self Care 07/04/2024 Orders Only Department of Cardiovascular Diseases in [place], [place] [address] [place] [address] Babar Jc M.D. Tachycardia (Primary Dx) 07/03/2024 2:30 PM HANDS PARTER Diagnostic Division of Pulmonary Medicine in [place], [place] [address] [place] [phone] Krishan Jeffrey M.B.B.SJair Vasculitis (HCC); Dizziness; Dyspnea On Exertion 07/03/2024 11:30 AM HANDS PARTER Office Visit Division of Pulmonary Medicine in [place], [place] [address] [place] [phone] Krishan Jeffrey M.B.B.SJair Lung Interstitial Disease (HCC) 07/03/2024 7:23 AM HANDS PARTER - 07/03/2024 11:59 PM HANDS PARTER Hospital Encounter Department of Radiology, [facility], in [place], [place] [address] [place] [phone] Krishan Jeffrey M.B.B.SJair Lung Interstitial Disease (HCC) Discharge Disposition: Home or Self Care 07/03/2024 Clinical Communication Department of Cardiovascular Medicine in [place], [place] [address] [place] [phone] Content SpecialistZuhair M.D. 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 Appt Request 06/23/2024 Orders Only Division of Pulmonary Medicine in [place], [place] [address] [place] [phone] Baqir, Krishan, M.B.B.S. Vasculitis (HCC) (Primary Dx) 06/22/2024 3:30 PM HANDS PARTER Comprehensive Visit Department of [facility], [facility], in [place], [place] [address] [place] [address] Wendy Robles APRN, C.N.P. Allergy Seasonal (Primary Dx); Alopecia Areata; Depression; Other Stressful Life Events Affecting Family And Household 06/09/2024 8:52 AM HANDS PARTER - 06/09/2024 11:59 PM HANDS PARTER Hospital Encounter Department of Laboratory Medicine in [address] [phone] Lynn Jacobs M.D. Pain In Joint; Leukocytosis Discharge Disposition: Home or Self Care 06/09/2024 Results Follow-Up Department of [facility], [facility], in [address] [phone] Lynn Jacobs M.D. Sedimentation Rate, Rheumatoid Factor, CBC with Differential, Blood, Additional followed-up results: 3 05/29/2024 1:15 PM HANDS PARTER Nurse Only Department of [facility], [facility], in [address] [phone] Lynn Jacobs M.D. Bailey, Jennifer L, L.P.NJair Nurse Visit 05/29/2024 Clinical Communication Department of [facility], [facility], in [address] [phone] Lynn Jacobs M.D. Nurse Visit from Last [...] drink = 0.6 oz pur e alcohol) [facility] Utilities Answer Date Recorded In the [...] often do you attend chur ch or caodaism services? 1 to 4 times per year 07/01/2019 Do you belong to any clubs o r organizations such as baptist groups, unions, fraternal or athletic groups, or [...] Answer Date Recorded PHQ-2 Score 5 06/19/2024 [facility]ational Stress Questionnaire Answer Date [...] your living situation today? I have a [facility] place to live 06/28/2023 Education Answer Date Recorded What is the highest level of school you have completed or the highest degree you have received? GED or equivalent Comments No Sex and Gender Information Value Date Recorded Sex Assigned at Female 06/28/2023 7:21 PM HANDS PARTER Legal Sex Female 2:56 PM HANDS PARTER Gender Identity Female 07/01/2019 7:57 PM HANDS PARTER Sexual Orientation Straight 07/01/2019 7: 57 PM HANDS PARTER Last Filed Vital Signs Vital Sign Reading Time Taken Comments Blood Pressure 137/94 07/28/2024 1:17 PM CDT Pulse 120 07/28/2024 1:14 PM CDT Temperature 36.4 C (97.5 F) 08/04/2024 9:13 AM CDT Respiratory Rate 16 05/22/2024 1:48 PM HANDS PARTER Oxygen Saturation 96% 07/03/2024 11: 14 AM HANDS PARTER Inhaled Oxygen Concentration - - Weight 77.5 kg (170 lb 13.7 oz) 08/04/2024 9:13 AM CDT Height 158.4 cm (5' 2.36) 07/03/2024 1 1:14 AM HANDS PARTER Body Mass Index 30.89 07/03/2024 11:14 AM HANDS PARTER Plan of Treatment Upcoming Encounters Date Type Department Care Team (Latest Contact Info) Description 08/28/2024 9:40 AM CDT Office Visit Department of Family Medicine, [facility], in [address] [phone] Lynn Jacobs M.D. [address] [place] [phone] 09/07/2024 3:45 PM CDT Office Visit Department of Otorhinolaryngology in [place], [place] [address] [place] [phone] Julieta Brice M.D. [address] [place] [phone] 09/22/2024 10:00 AM CDT Appointment Department of Cardiovascular Diseases in [address] [phone] Yanick Cartwright, CINTHIA, C.N.P. [address] [phone] Discharge Disposition: Home or Self Care 09/22/2024 11:20 AM CDT Appointment Department of Laboratory Medicine in [place], [place] [address] [place] [phone] Yanick Cartwright APRN, C.N.P. [address] [place] [phone] 10/06/2024 7:30 AM CDT Clinical Communication Virtual Review in [place], [place] [address] [place] [phone] 10/11/2024 2:50 PM CDT Comprehensive Visit Division of Gastroenterology in [place], [place] [address] [place] [phone] Krishan Jeffrey M.B.BJairS. [address] [place] [phone] 12/04/2024 2:00 PM CDT Office Visit Department of Family Medicine, [facility], in [place], [place] [address] [place] [phone] Wendy Robles APRN, C.N.P. [address] [phone] Health Maintenance Due Date Last [...] Rhinitis Allergic HOLTER MONITOR - IN CLINIC MANUFACTURING TECHNOLOGIST Routine 07/06/2024 2:29 PM HANDS PARTER Tachycardia PUL HOME OVERNIGHT OXIMETRY Routine 07/05/2024 Vasculitis (HCC) Dizziness Dyspnea On Exertion ARTERIAL BLOOD GAS - PULMONARY CLINIC Routine 07/03/2024 12:23 PM HANDS PARTER Vasculitis (HCC) Dizziness PULMONARY FUNCTION TESTS Routine 07/03/2024 9:16 AM HANDS PARTER Lung Interstitial Disease (HCC) PH, U Routine 07/03/2024 8:48 AM HANDS PARTER OSMOLALITY, U Routine 07/03/2024 8:48 AM HANDS PARTER DIPSTICK, U Routine 07/03/2024 8:48 AM HANDS PARTER MICROSCOPIC AUTOMATED Routine 07/03/2024 8:48 AM HANDS PARTER URINALYSIS WITH MICROSCOPIC Routine 07/03/2024 8:48 AM HANDS PARTER Lung Interstitial Disease (HCC) C-REACTIVE PROTEIN (CRP), S/P Routine 07/03/2024 8:44 AM HANDS PARTER Vasculitis (HCC) SEDIMENTATION RATE, B Routine 07/03/2024 8:44 AM HANDS PARTER Vasculitis (HCC) BASIC METABOLIC PANEL, S/P Routine 07/03/2024 8:44 AM HANDS PARTER Lung Interstitial Disease (HCC) CBC WITH DIFFERENTIAL, B Routine 07/03/2024 8:44 AM HANDS PARTER Lung Interstitial Disease (HCC) CT CHEST WITHOUT IV CONTRAST RAD - Routine (most inpatients and all outpatients) 07/03/2024 8:14 AM HANDS PARTER Lung Interstitial Disease (HCC) CBC WITH DIFFERENTIAL, B Routine 06/09/2024 9:04 AM HANDS PARTER Leukocytosis HLA-B27, B Routine 06/09/2024 9:04 AM HANDS PARTER Pain In Joint CYCLIC CITRULLINATED PEPTIDE ABS, IGG, S Routine 06/09/2024 9:04 AM HANDS PARTER Pain In Joint RHEUMATOID FACTOR, S/P Routine 06/09/2024 9:04 AM HANDS PARTER Pain In Joint SEDIMENTATION RATE, B Routine 06/09/2024 9:04 AM HANDS PARTER Pain In Joint ANTINUCLEAR ABS (PAU), S Routine 06/09/2024 9:04 AM HANDS PARTER Pain In Joint LIPID PANEL, S Routine 09/16/2015 11:30 AM CDT from Last 3 Months or Most Recently Relevant to Health Maintenance Results * Chicken Serum Proteins, IgE (08/04/2024 10:44 AM CDT) [facility] Chicken Serum Proteins, IgE <0.10 <0.70 kU/L 08/07/2024 6:28 PM CDT [facility] Comment: Class 0 (Negative <0.10) ----ADDITIONAL INFORMATION---- This test was developed and its performance characteristics determined by [facility] in a manner consistent with CLIA requirements. This test has not been cleared or approved by the U.S. Food and Drug Administration. Blood (Blood, Venous) 08/04/2024 10:44 AM CDT 08/07/2024 2:24 PM CDT Reed Schmid M.D. LAB BLOOD ADD-ON Final Resu lt Performing Organization Address City/[facility]/ZIP Co de Phone Number [facility] [address] [place] [address] [facility] [address] [place] [address] * [place] Feathers, IgE (08/04/2024 10:44 AM CDT) [facility] [place] Feathers, IgE <0.10 <0.70 kU/L 08/07/2024 6:16 PM CDT [facility] Comment:Class 0 (Negative <0 .10) Blood (Blood, Venous) 08/04/2024 10:44 AM CDT 08/07/2024 2:24 PM CDT Reed Schmid M.D. LAB BLOOD ADD-ON Final Resu lt Performing Organization Address [facility] de Phone Number [facility] [address] [place] [address] [facility] [address] [place] [address] * Mouse Serum Protein, IgE (08/04/2024 10:44 AM CDT) [facility] Mouse Serum Protein, IgE <0.10 <0.70 kU/L 08/07/2024 6:17 PM CDT [facility] Comment:Class 0 (Negative <0 .10) Blood (Blood, Venous) 08/04/2024 10:44 AM CDT 08/07/2024 2:24 PM CDT Reed Schmid M.D. LAB BLOOD ADD-ON Final Resu lt Performing Organization Address City/State/[facility] Co de Phone Number [facility] [address] [place] [address] [facility] [address] [place] [address] * Chicken Droppings, IgE (08/04/2024 10:44 AM CDT) Chicken Droppings, IgE <0.10 <0.70 kU/L 08/07/2024 6:27 PM CDT [facility] Comment: Class 0 (Negative <0.10) ----ADDITIONAL INFORMATION---- This test was developed and its performance characteristics determined by [facility] in a manner consistent with CLIA requirements. This test has not been cleared or approved by the U.S. Food and Drug Administration. Blood (Blood, Venous) 08/04/2024 10:44 AM CDT 08/07/2024 2:24 PM CDT Reed Schmid M.D. LAB BLOOD ADD-ON Final Resu lt [facility] [address] [place] [address] [facility] [address] [place] [address] * Mouse Epithelium, IgE (08/04/2024 10:44 AM CDT) Mouse Epithelium, IgE <0.10 <0.70 kU/L 08/07/2024 6:16 PM CDT [facility] Comment:Class 0 (Negative <0 .10) Blood (Blood, Venous) 08/04/2024 10:44 AM CDT 08/07/2024 2:24 PM CDT Reed Schmid M.D. LAB BLOOD ADD-ON Final Resu lt [facility] [address] [place] [address] [facility] [address] [place] [address] * Chicken Feathers, IgE (08/04/2024 10:44 AM CDT) Chicken Feathers, IgE <0.10 <0.70 kU/L 08/07/2024 6:16 PM CDT [facility] Comment:Class 0 (Negative <0 .10) Blood (Blood, Venous) 08/04/2024 10:44 AM CDT 08/07/2024 2:24 PM CDT Result [facility] Reed Schmid M.D. LAB BLOOD ADD-ON Final Resu lt Performing Organization Address City/[facility] Co de Phone Number [facility] [address] [place] [address] [facility] [address] [place] [address] * Mouse Urine Protein, IgE (08/04/2024 10:44 AM CDT) Mouse Urine Protein, IgE <0.10 <0.70 kU/L 08/07/2024 6:17 PM CDT [facility] Comment:Class 0 (Negative <0 .10) Blood (Blood, Venous) 08/04/2024 10:44 AM CDT 08/07/2024 2:24 PM CDT Result [facility] Reed Schmid M.D. LAB BLOOD ADD-ON Final Resu lt Performing Organization Address City/[facility] Co de Phone Number [facility] [address] [place] [address] [facility] [address] [place] [address] * Immunoglobulin E (IgE) (08/04/2024 10:44 AM CDT) Immunoglobulin E (IgE), S 76.2 <=214 kU/L 08/07/2024 6:17 PM CDT [facility] Blood (Blood, Venous) 08/04/2024 10:44 AM CDT 08/07/2024 2:24 PM CDT Result [facility] Reed Schmid M.D. LAB BLOOD ADD-ON Final Resu lt [facility] [address] [place] [address] [facility] [address] [place] [address] * Northern Skin Test (08/04/2024 9:30 AM CDT) Narrative MMODAL - 08/04/2024 9:30 AM CDT Katherine Cha R.N. 08/04/2024 10:55 AM Panel Skin Tests Flowsheet Row Clinical Support from 08/04/2024 in Department of Allergy in [place], [place] Controls Histamine (15 min W/F) 9x9w/f Glycerine (15 min W/F) 0 [place] Basic Adult Panel Herriman, White: 0 Tacho, White: 0 Birch: 0 Coles, Red: 0 Schleicher, Eastern: 0 Dauphin: 0 [place]: 0 [place], Shagbark: 0 Maple: 0 Cando, White: 0 Gr[place], Black: 0 Frederick: 0 Winston, White: 0 [place]: 0 [place], Solomon Islander: 0 [place], Black: 0 Wadena: 0 Bermuda: 7x7f Kentucky Blue: 0 Orchard: 0 Quack: 7x7f Red [place]: 0 Franco: 0 Cocklebur: 0 Kochia: 0 James's Quarters: 0 Steele [place], Burweed: 0 Mugwort, Common: 0 Nettle: 0 Plantain, Nepali: 0 Rough Pigweed: 0 Afghan Thistle: 0 Short Ragweed: 0 Delia, Sheep Red: 0 Cat Hair: 0 Cattle [...] from 08/04/2024 in Department of Allergy in [place], [place] Controls Histamine (15 min W/F) 9x9w/f Glycerine (15 min W/F) 0 [place] Basic Adult Panel Herriman, White: 0 Tacho, White: 0 Birch: 0 Coles, Red: 0 Schleicher, Eastern: 0 Dauphin: 0 [place]: 0 [place], Shagbark: 0 Maple: 0 Cando, White: 0 [place], Black: 0 [place]: 0 Winston, White: 0 [place]: 0 [place], Solomon Islander: 0 [place], Black: 0 [place]ad[place]: 0 Bermuda: 7x7f Kentucky Blue: 0 Orchard: 0 Quack: 7x7f Red [place]: 0 Franco: 0 Cocklebur: 0 Kochia: 0 James's Qu[place]: 0 Steele Elder, Burweed: 0 Mugwort, Common: 0 Nettle: 0 Plantain, Nepali: 0 Rough Pigweed: 0 Afghan Thistle: 0 Short Ragweed: 0 Delia, Sheep Red: 0 Cat Hair: 0 Cattle [...] NA * HOLTER MONITOR - IN CLINIC MANUFACTURING TECHNOLOGIST (07/06/2024 2:29 PM HANDS PARTER) Min Heart Rate 58 bpm INFOB IONIC [...] Duration 0 duration INFOBION IC MOME AF [place] 0 percent INFOBIONIC MOME Symptom Count 9 count INFOBI ONIC MOME 07/05/2024 2:31 PM HANDS PARTER Narrative INFOBIONIC MOME - 07/07/2024 3:29 PM HANDS PARTER 1. The basic rhythm was sinus with [...] to 98 bpm. No ectopy was noted. Stereoptician: MARY Lloyd/MARY Zamora Procedure Note [place] [...] 81 to 98 bpm. No ectopy wasnoted. Stereoptician: MARY Lloyd/MARY Zamora Babar Jc M.D. CV CARDIAC SERVICES PRO CEDURES Final Result MATT WISE NA * Home Overnight Oximetry (07/05/2024) 07/05/2024 Impressions [employer] EA - 07/07/2024 4:09 PM HANDS PARTER This is an overnight oximetry performed on [...] with the patient is necessary. Please note [place] Sleepiness Scale score of 20 indicative of excessive daytime drowsiness. Physician: Roger Whitten M.D. [id number] Narrative Procedure Note Roger Whitten M.D., Ph.D. [...] with the patient is necessary. Please note [place] Sleepiness Scale score of 20 indicative ofexcessive daytime drowsiness. Physician: Roger Whitten M.D. [id number] Krishan Triana PFT ORDERABLES Final Resu lt [employer] [facility] * (ABNORMAL) Arterial Blood Gas - Rest (07/03/2024 12:23 PM HANDS PARTER) Sample Site Right Radial Single Stick 07/03/2024 12:44 PM HANDS PARTER DTL Patient Position Sit 07/03/19 12:44 PM HANDS PARTER DTL Patient Activity Rest 07/03/19 12:44 PM HANDS PARTER DTL FIO2 21.00 21%=AIR % 07/03/2024 12:44 PM HANDS PARTER DTL pH Arterial 7.46(H) 7.35 - 7.45 07/03/2024 12:44 PM HANDS PARTER DTL pCO2 Arterial 36.7 35.0 - 45.0 mm Hg 07/03/2024 12:44 PM HANDS PARTER DTL pO2 Arterial 94.6 80.0 - 100.0 mm Hg 07/03/2024 12:44 PM HANDS PARTER DTL Total Hemoglobin 12.8 11.6 - 15.0 g/dL 07/03/2024 12:44 PM HANDS PARTER DTL O2 Saturation 93.3(L) 94.0 - 98.0 % 07/03/2024 12:44 PM HANDS PARTER DTL Carboxyhemoglobin 3.9(H) 0.0 - 1.9 % 07/03/2024 12:44 PM HANDS PARTER DTL Methemoglobin 1.0(H) 0.0 - 0.9 % 07/03/2024 12:44 PM HANDS PARTER DTL Bicarbonate Conc 25.9 22.0 - 26.0 mmol/L 07/03/2024 12:44 PM HANDS PARTER DTL Base Excess 2.0 0.0 - 2.0 mmol/L 07/03/2024 12:44 PM HANDS PARTER DTL Maddox 0.00 07/03/2024 12:44 PM HANDS PARTER DTL Activity Time 10.0 min 07/03/2024 12:44 PM HANDS PARTER DTL Subcutaneous Lidocaine 0.0 mL 07/03/2024 12:44 PM HANDS PARTER DTL O2 Devices N/A 07/03/2024 12:44 PM HANDS PARTER DTL Blood (Blood, Arterial) 07/03/2024 12:23 PM HANDS PARTER 07/03/2024 12:43 PM HANDS PARTER us Krishan Triana LAB BLOOD ADD-ON Final Res ult [facility] [address] [place] [address], [facility] [address] [place] [address] * Pulmonary Function Tests (07/03/2024 9:16 AM HANDS PARTER) FVC 3.08 L 07/03/2024 11:23 AM [facility] FEV1 2.58 L 07/03/2024 11:23 AM [facility] FEV1/FVC 83.68 % 07/03/2024 11:23 AM [facility] JOY19-56% 3.10 L/s 07/03/2024 11:23 AM [facility] PEF PRE 7.22 L/s 07/03/2024 11:23 AM [facility] PIF PRE 5.59 L/s 07/03/2024 11:23 AM [facility] Pre FEF50/FIF50 72.31 % 11:23 AM [facility] FET PRE 11.86 sec 07/03/2024 11:23 AM [facility] DLCO 20.11 ml/(min*mm Hg) 07/03/2024 11:23 AM [facility] DLCOc 19.99 ml/(min*mm Hg) 07/03/2024 11:23 AM [facility] HB 13.60 g(Hb)/dL 07/03/2024 11:23 AM HANDS PARTER [facility] Pre % Pred [place] SINGLE BREATH 3.92 L 07/03/2024 11:23 AM HANDS PARTER [facility] 07/03/2024 9:16 AM HANDS PARTER Impressions [facility] - 07/03/2024 11:23 AM HANDS PARTER Within normal limits. Since 11/22/2023 there has been no significant change. Narrative Procedure Note Roger Whitten M.D., Ph.D. - 07/03/2024 IMPRESSION: Within normal limits. Since 11/22/2023 there has been no significantchange. Krishan JuarezB.S. PFT ORDERABLES Final Resu lt Performing Organization Address City/[facility]/ZIP Co de Phone Number [facility] NA * (ABNORMAL) Dipstick, Urine (07/03/2024 8:48 AM HANDS PARTER) Hemoglobin, QL, U Moderate(A) Negative 07/03/2024 9:57 AM HANDS PARTER DTL Leukocyte Esterase, U Negative Negative 07/03/2024 9:57 AM HANDS PARTER DTL Nitrite, U Negative Negative 07/03/2024 9:57 AM HANDS PARTER DTL Ketone, U Negative Negative mg/dL 07/03/2024 9:57 AM HANDS PARTER DTL Glucose, U Negative Negative mg/dL 07/03/2024 9:57 AM HANDS PARTER DTL Urine 07/03/2024 8:48 AM HANDS PARTER 07/03/2024 9:18 AM HANDS PARTER Krishan Shankar.B.S. LAB URINE ORDERABLES Final Result Performing Organization Address City/[facility]/ZIP Co de Phone Number [facility] [address] [place] [address], [facility] DTL [facility] [address] [place] [address] * (ABNORMAL) Microscopic Automated (07/03/2024 8:48 AM HANDS PARTER) Microscopy Abnormal 07/03/2024 9:57 AM HANDS PARTER DTL RBC 3-10(A) <3 /hpf 07/03/2024 9:57 AM HANDS PARTER DTL Dysmorphic RBC <25 <25 % 07/03/2024 9:57 AM HANDS PARTER DTL WBC 1-3 /hpf 07/03/2024 9:57 AM HANDS PARTER DTL Comment: ----REFERENCE VALUE---- <4 (Males) <11 (Females) Squamous Epithelial Cells, U 1-3 /hpf 07/03/2024 9:57 AM HANDS PARTER DTL Urine 07/03/2024 8:48 AM HANDS PARTER 07/03/2024 9:18 AM HANDS PARTER Krishan Shankar.B.S. LAB URINE ORDERABLES Final Result Performing Organization Address [facility]/ZIP Co de Phone Number [facility] [address] [facility] [address] [place] [address] * pH, Urine (07/03/2024 8:48 AM HANDS PARTER) pH, U 5.5 4.5 - 8.0 07/03/2024 10: 23 AM HANDS PARTER DT Urine 07/03/2024 8:48 AM HANDS PARTER 07/03/2024 9:18 AM HANDS PARTER Krishan Her.B.B.S. LAB URINE ORDERABLES Final Result Performing Organization Address City/[facility]/ZIP Co de Phone Number [facility] [address] [facility] [address] [place] [address] * Osmolality, Urine (07/03/2024 8:48 AM HANDS PARTER) Osmolality, U 936 150 - 1150 mOsm/kg 07/03/2024 10:23 AM HANDS PARTER DTL Urine 07/03/2024 8:48 AM HANDS PARTER 07/03/2024 9:18 AM HANDS PARTER Krishan JuarezB.S. LAB URINE ORDERABLES Final Result Performing Organization Address City/[facility] Co de Phone Number [facility] [address] [place] [address], [facility] [place] [facility] [address] [place] [address] * Urinalysis, with Microscopic: Urine, Midstream (07/03/2024 8:48 AM HANDS PARTER) Source Urine, Urine, Midstream 07/03/2024 9:17 AM HANDS PARTER DTL Color, U Yellow 07/03/2024 9:18 AM HANDS PARTER DTL Clarity, U Clear 07/03/2024 9:18 AM HANDS PARTER DTL Protein, U 11 <26 mg/dL 07/03/2024 10:05 AM HANDS PARTER DTL Protein/Osmol ality 0.12 <0.42 ratio 07/03/2024 10:23 AM HANDS PARTER DTL Predicted 24 HR Protein, U 96 <229 mg/24 h 07/03/2024 10:23 AM HANDS PARTER DTL Predicted Range 24-388 mg/24 h 07/03/2024 10:23 AM HANDS PARTER DTL Urine (Urine, Midstream) 07/03/2024 8:48 AM HANDS PARTER 07/03/2024 9:17 AM HANDS PARTER Krishan JuarezB.S. LAB URINE ORDERABLES Final Result Performing Organization Address City/[facility]/ZIP Co de Phone Number [facility] [address] [place] [address], [facility] [place] [facility] [address] [place] [address] * (ABNORMAL) Sedimentation Rate (07/03/2024 8:44 AM HANDS PARTER) Only the most recent of2 resultswithin the time period is included. Sedimentation Rate, B 32(H) 2 - 20 mm/h 07/03/2024 10:35 AM HANDS PARTER DTL Blood (Blood, Venous) 07/03/2024 8:44 AM HANDS PARTER 07/03/2024 9:05 AM HANDS PARTER us Krishan Triana LAB BLOOD ADD-ON Final Res ult [facility] [address] [place] [address], [facility] [place] DTL [facility] [address] [place] [address] * (ABNORMAL) CBC with Differential, Blood (07/03/2024 8:44 AM HANDS PARTER) Only the most recent of2 resultswithin the time period is included. Hemoglobin 13.6 11.6 - 15.0 g/dL 07/03/2024 9:58 AM HANDS PARTER DTL Hematocrit 40.3 35.5 - 44.9 % 07/03/2024 9:58 AM HANDS PARTER DTL Erythrocytes 4.41 3.92 - 5.13 x10(12)/L 07/03/2024 9:58 AM HANDS PARTER DTL MCV 91.4 78.2 - 97.9 fL 07/03/2024 9:58 AM HANDS PARTER DTL RBC Distrib Width 13.2 12.2 - 16.1 % 07/03/2024 9:58 AM HANDS PARTER DTL Platelet Count 378(H) 157 - 371 x10(9)/L 07/03/2024 9:58 AM HANDS PARTER DTL Leukocytes 10.3(H) 3.4 - 9.6 x10(9)/L 07/03/2024 9:58 AM HANDS PARTER DTL Neutrophils 5.73 1.56 - 6.45 x10(9)/L 07/03/2024 9:58 AM HANDS PARTER DHPM Lymphocytes 3.77(H) 0.95 - 3.07 x10(9)/L 07/03/2024 9:58 AM HANDS PARTER DTL Monocytes 0.53 0.26 - 0.81 x10(9)/L 07/03/2024 9:58 AM HANDS PARTER DTL Eosinophils 0.18 0.03 - 0.48 x10(9)/L 07/03/2024 9:58 AM HANDS PARTER DTL Basophils 0.06 0.01 - 0.08 x10(9)/L 07/03/2024 9:58 AM HANDS PARTER DTL Blood (Blood, Venous) 07/03/2024 8:44 AM HANDS PARTER 07/03/2024 9:05 AM HANDS PARTER Krishan JuarezB.S. LAB BLOOD ADD-ON Final Res ult Performing Organization Address City/[facility]/ZIP Co de Phone Number [facility] [address] [place] [address], [facility] [address] [place] [address] * (ABNORMAL) CRP (C-Reactive Protein) (07/03/2024 8:44 AM HANDS PARTER) C-Reactive Protein (CRP), S 9.5(H) <5.0 mg/L 07/03/2024 9:26 AM HANDS PARTER DTL Blood (Blood, Venous) 07/03/2024 8:44 AM HANDS PARTER 07/03/2024 9:10 AM HANDS PARTER Krishan PaulsonS. LAB BLOOD ADD-ON Final Res ult Performing Organization Address City/[facility]/ZIP Co de Phone Number [facility] [address] [place] [address], [facility] [address] [place] [address] * Basic Metabolic Panel (07/03/2024 8:44 AM HANDS PARTER) Potassium, S 4.6 3.6 - 5.2 mmol/L 07/03/2024 9:26 AM HANDS PARTER DTL Sodium, S 139 135 - 145 mmol/L 07/03/2024 9:26 AM HANDS PARTER DTL Chloride, S 103 98 - 107 mmol/L 07/03/2024 9:26 AM HANDS PARTER DTL Bicarbonate, S 26 22 - 29 mmol/L 07/03/2024 9:26 AM HANDS PARTER DTL Anion Gap 10 7 - 15 07/03/2024 9:26 AM HANDS PARTER DTL BUN (Blood Urea Nitrogen), S 17 6 - 21 mg/dL 07/03/2024 9:26 AM HANDS PARTER DTL Creatinine 0.67 0.59 - 1.04 mg/dL 07/03/2024 9:26 AM HANDS PARTER DTL Estimated GFR (eGFR) >90 >=60 mL/min/BSA 07/03/2024 9:26 AM HANDS PARTER DTL Comment: Estimated GFR calculated using the 2020 CKD_EPI creatinine equation. Calcium, Total, S 9.6 8.6 - 10.0 mg/dL 07/03/2024 9:26 AM HANDS PARTER DTL Glucose, S 116 70 - 140 mg/dL 07/03/2024 9:26 AM HANDS PARTER DTL Blood (Blood, Venous) 07/03/2024 8:44 AM HANDS PARTER 07/03/2024 9:10 AM HANDS PARTER us Krishan Triana LAB BLOOD ADD-ON Final Res ult [facility] [address] [place] [address], [facility] DTL [facility] [address] [place] [address] * CT Chest without IV Contrast (07/03/2024 8:14 AM HANDS PARTER) Anatomical Region Laterality Modality Chest, Thoracic RST LOS, Tho racic ARZ LOS, Thoracic FLA LOS N/A Computed Tomography, Compute d Tomography Impressions 07/03/2024 8:34 AM HANDS PARTER 1. No significant change since 04/14/2024. Similar clustered nodules in the right middle lobe, and small lung nodules elsewhere. 2. Diffuse air trapping, consistent with small airways disease. 3. Hepatic steatosis. Narrative 07/03/2024 8:34 AM HANDS PARTER EXAM: CT CHEST WITHOUT IV CONTRAST COMPARISON: [...] airways disease. 3. Hepatic steatosis. Krishan Triana [facility] CT PROCEDURES Final Re sult * HLA B27 Associated Antigen Screening (06/09/2024 9:04 AM HANDS PARTER) HLA-B27 Result Negative Not Applicable 06/11/2024 8:39 AM HANDS PARTER [id number] Comment: A portion of the testing process was performed at [facility] Curbside site [id number] HLA-B27 Interpretation see below 06/11/2024 8:39 AM HANDS PARTER DBB8 Comment: HLA-B27 antigen was not detected. ----ADDITIONAL INFORMATION---- Method: Flow Cytometry CLIA: [id number] CLIA Furniture Mechanic: LONG STERLING,Ph.D. Blood (Blood, Venous) 06/09/2024 9:04 AM HANDS PARTER 06/10/2024 8:04 AM HANDS PARTER Result Reagan Jacobs M.D. LAB BLOOD NON ADD-ON Final R esult [facility] [address] [place] [address], [facility] [place] DBB8 [facility] [address] [place] [address] * Cyclic Citrullinated Peptide Antibodies, IgG (06/09/2024 9:04 AM HANDS PARTER) Cyclic Citrullinated Peptide Ab, S <15.6 <20.0 (Negative) U 06/10/2024 12:30 PM HANDS PARTER [facility] Comment: Interpretation: Antibodies to CCP not detected. If clinical symptoms are strongly indicative for rheumatoid arthritis, suggest testing for Rheumatoid Factor, S (RHUT) and, if positive, Rheumatoid Factor Panel, S (RFPN), which includes differentiation of rheumatoid factor IgM and IgA isotypes. Blood (Blood, Venous) 06/09/2024 9:04 AM HANDS PARTER 06/10/2024 7:13 AM HANDS PARTER Result Reagan Jacobs M.D. LAB BLOOD ADD-ON Final Resul t Performing Organization Address [facility] Co de Phone Number [facility] [address] [place] [address] [facility] [address] [place] [address] * Rheumatoid Factor (06/09/2024 9:04 AM HANDS PARTER) Rheumatoid Factor, S <10 <15 IU/mL 06/09/2024 3:59 PM HANDS PARTER AUST Blood (Blood, Venous) 06/09/2024 9:04 AM HANDS PARTER 06/09/2024 3:27 PM HANDS PARTER us Lynn Jacobs M.D. LAB BLOOD ADD-ON Final Resul t [facility] [address] [place] [address], [facility] [address] [place] [address] * PAU (Antinuclear Antibodies) (06/09/2024 9:04 AM HANDS PARTER) Antinuclear Ab, S 0.4 <=1.0 (Negative) U 06/10/2024 2:21 PM HANDS PARTER [facility] Comment: ----ADDITIONAL INFORMATION---- Method: Enzyme-linked immunoassay using HEp-2 nuclear extract supplemented with purified antigens. Blood (Blood, Venous) 06/09/2024 9:04 AM HANDS PARTER 06/10/2024 7:14 AM HANDS PARTER us Lynn Jacobs M.D. LAB BLOOD ADD-ON Final Resul t [facility] [address] [place] [address] [facility] [address] [place] [address] * (ABNORMAL) Lipid Panel (09/16/2015 11:30 AM [...] for FH and FDB is available through [employer]: FH/ADH Genetic Reflex Panel (test ADHP). Acquired (non-genetic) causes of markedly increased LDL cholesterol include cholestatic liver disease due to the presence of LpX. If a genetic form of hypercholesterolemia is suspected, family studies including biochemical testing for lipids (total cholesterol,triglycerides, LDL cholesterol and HDL cholesterol) are recommended. Please contact the laboratory at or the on-line test catalog at [email or web address] for information about how to order these [...] to Health Maintenance Insurance MEDICARE Care Teams Shipping/Receiving Manager Relationship Specialty Start Date End Date Lynn Jacobs M.D. [address] [place] [address] [place] [phone] PCP - General Family Medicine 04/03/24
[2024-08-25 17:49] LABS: Basophils Absolute Auto 0.03 K/uL (0.00-0.30); Basophils Percent Auto 0.3 % (0.0-3.0); Eosinophils Absolute Auto 0.17 K/uL (0.00-0.50); Eosinophils Percent Auto 1.7 % (0.0-7.0); Immature Granulocytes Abs Auto 0.02 K/uL (0.00-0.30); Immature Granulocytes Pct Auto 0.2 %; Lymphocytes Absolute Auto 4.04 K/uL (0.90-2.90); Mean Corpuscular HGB Conc 34 gm/dL (32-36); Mean Corpuscular Hemoglobin 31 pg (26-34); Mean Corpuscular Volume 91 fL (80-100); Monocytes Percent Auto 5.2 % (0.0-11.0); Neutrophils Absolute Auto 5.31 K/uL (1.7-7.0); Neutrophils Percent Auto 52.6 % (42.0-72.0); Platelet Count* 407 K/uL (140-440); RDW Coefficient of Variation % 12.4 % (11.5-15.5); Red Blood Count 4.52 m/uL (4.00-5.20)
[2024-08-25 17:52] LABS: Slide Review Reflex No
[2024-08-25 18:05] LABS: Albumin* 4.6 g/dL (3.3-5.0); Chloride* 101 mmol/L (96-114); INR 0.86 (0.91-1.10); Potassium* 3.4 mmol/L (3.6-5.1); Prothrombin Time 12.5 Seconds; Sodium* 138 mmol/L (135-149)
[2024-08-25 18:06] LABS: Partial Thromboplastin Time* 27 Seconds (23-33)
[2024-08-25 18:07] LABS: Blood Urea Nitrogen* 16 mg/dL (5-24); Creatinine* 0.6 mg/dL (0.5-1.5); Est. Creatinine Clearance* 121.35; Estimated Glomerular Filt Rate 119 ml/min
[2024-08-25 18:08] LABS: Alanine Aminotransferase* 46 U/L (4-35); Alkaline Phosphatase* 93 U/L (40-150); Anion Gap 10 mEq/L (7-15); Aspartate Amino Transferase* 35 U/L (12-35); Bilirubin Total* 0.7 mg/dL (0.1-1.5); Calcium* 9.5 mg/dL (8.4-10.6); Carbon Dioxide* 27 mmol/L (20-32); Glucose* 139 mg/dL (60-115); Magnesium* 1.8 mg/dL (1.5-2.6)
[2024-08-25 18:11] LABS: C Reactive Protein* 0.9 mg/dL (0.5-1.0)
[2024-08-25 18:56] LABS: Erythrocyte SedimentationRate* 19 mm/hr (2-20)
[2024-08-25] MEDS: KETOROLAC 15 MG/ML inj IVP (19:46)
== END 2024-08-25 20:07 | disposition home or self-care (01) ==
PROVIDERS: Emergency Provider Family Medicine; PCP Family Medicine
DX: G43.909 Migraine, unspecified, not intractable, without status migrainosus (principal); R20.2 Paresthesia of skin; R03.0 Elevated blood-pressure reading, without diagnosis of hypertension
CPT/HCPCS: 36415; 70450; 70496; 70498; 80053; 83735; 84443; 85025; 85610; 85651; 85730; 86140; 94761; 96374; 99284; J1885; Q9967

== ENCOUNTER 2024-08-29 04:18 | Emergency (ER) | payer MEDICARE, SELFPAY ==
--- OUTSIDE RECORDS SUMMARY | 2024-08-29 04:22 | XMS_ITS | Encounter Summary ---
Author Organization [facility] Address [address] [place] [address] Care Team Providers Care Education Consultant Name Role Phone Lynn Jacobs M.D. Primary Care Provider [phone] Reason for Referral * Outpatient (Routine) - Authorized Specialty Diagnoses / Procedures Referred By Peri gaytan Referred To Contact Otorhinolaryngology Diagnoses Vocal Cord Disease Lynn Jacobs M.D. [address] [place] [address] Phone: tel: fax: [facility] Region Referral ID Status Reason Start Date Expiration Date Visits Requested Visits Authorized [id number] Authorized Specialty Services Required 08/17/2024 02/16/2026 1 1 Encounter Details Date Type Department Care Team (Late st Contact Info) Description 08/17/2024 Orders Only Department of Family Medicine, [facility], in [place], [place] [address] [place] [phone] Lynn Jacobs M.D. [address] [place] [phone] Vocal Cord Disease (Primary Dx) Social History Tobacco Use Types Packs/Day Years Used Date Smoking Tobacco: Never Smokeless Tobacco: Never Alcohol Use Standard Drinks/Week Comments No 0 (1 standard drink = 0.6 oz pur e alcohol) [facility] Utilities Answer Date Recorded In the past 12 months has th e electric, [employer], oil, or water [employer] threatened to shut off services in your [...] often do you attend chur ch or anabaptist services? 1 to 4 times per year 07/01/2019 Do you belong to any clubs o r organizations such as evangelical groups, unions, fraternal or athletic groups, or [...] Answer Date Recorded PHQ-2 Score 5 06/19/2024 [facility] Occupat ional [facility] - Occupational Stress [...] Sex Assigned at Female 06/28/2023 7:21 PM SCREEN STRETCHER Legal Sex Female 2:56 PM SCREEN STRETCHER Gender Identity Female 07/01/2019 7:57 PM SCREEN STRETCHER Sexual Orientation Straight 07/01/2019 7: 57 PM SCREEN STRETCHER documented as of this encounter Plan of Treatment Upcoming Encounters Date Type Department Care Team (Latest Contact Info) Description 09/07/2024 3:45 PM CDT Office Visit Department of Otorhinolaryngology in [place], [place] [address] [place] [phone] Julieta Brice M.D. [address] [place] [phone] 09/22/2024 10:00 AM CDT Appointment Department of Cardiovascular Diseases in [address] [phone] Yanick Cartwright APRN, C.N.P. [address] [place] [phone] Discharge Disposition: Home or Self Care 09/22/2024 11:20 AM CDT Appointment Department of Laboratory Medicine in [address] [phone] Yanick Cartwright APRN, C.N.P. [address] [place] [phone] 10/06/2024 7:30 AM CDT Clinical Communication Virtual Review in [place], [place] 200 [place] [phone] 10/11/2024 2:50 PM CDT Comprehensive Visit Division of Gastroenterology in [place], [place] [address] [place] [phone] Krishan Jeffrey M.B.B.S. [address] [place] [phone] 12/04/2024 2:00 PM CDT Office Visit Department of Family Medicine, [facility], in [place], [place] [address] [place] [phone] Wendy Robles APRN, C.N.P. [address] [place] [phone] Scheduled Referrals Name Type Priority Associated Diagnoses Order Schedule [facility] Otorhinolaryngology - General consult (clinic) Outpatient Referral Routine Vocal Cord Disease Expected: 08/17/2024, Expires: 11/16/2025 documented as of this encounter Visit Diagnoses Diagnosis Vocal Cord Disease- Primary documented in this encounter Additional Health Concerns Assessment Noted Time PHQ-9 Depression Total Score: 10 025 11:16 AM SCREEN STRETCHER documented as of this encounter Care Teams Education Consultant Relationship Specialty Start Date End Date Lynn Jacobs M.D. [address] [place] [phone] PCP - General Family Medicine 04/03/24 documented as of this encounter
--- OUTSIDE RECORDS SUMMARY | 2024-08-29 04:22 | XMS_ITS | Encounter Summary ---
Author Organization [facility] Address [address] [place] [address] Care Team Providers Care Hand Scudder Name Role Phone Lynn Jacobs M.D. Primary Care Provider [phone] Reason for Referral * Outpatient (Routine) - Closed Specialty Diagnoses / Procedures Referred By Contact Referred To Contact Cardiovascular Diseases / Cardiovascular Disease Diagnoses Hypertension Essential Primary Dyspnea On Exertion Krishan Jeffrey M.B.B.S. [address] [place] [address] Phone: tel: fax: [facility] Region Referral ID Status Reason Start Date Expiration Date Visits Re quested Visits Authorized [id number] Closed 07/03/2024 01/02/2026 1 1 PAPER CARRIERS SUPERVISOR Reason for Visit * Reason Onset Date Comments Triage 07/03/2024 Davina Ballard, # [phone] Encounter Details Date Type Department Care Team (Latest Contact Info) Description 07/03/2024 Clinical Communication Department of Cardiovascular Medicine in [place], [place] [address] [place] [phone] Lead Man Over All Dies In Pattern ShopZuhair M.D. Triage (Davina Ballard, # [phone]) Social History Tobacco Use Types Packs/Day Years Used Date Smoking Tobacco: Never Smokeless Tobacco: Never Alcohol Use Standard Drinks/Week Comments No 0 (1 standard drink = 0.6 oz pur e alcohol) [facility] Utilities Answer Date Recorded In the past 12 months has [employer], gas, oil, or water [employer] threatened to shut off services in your [...] often do you attend chur ch or hindu services? 1 to 4 times per year [...] Answer Date Recorded PHQ-2 Score 5 06/19/2024 [facility] of Occupat ional Health [...] your living situation today? [facility] have a [facility] place to live 06/28/2023 Education Answer Date Recorded What is the highest level of school you have completed or the highest degree you have received? GED or equivalent Comments No Sex and Gender Information Value Date Recorded Sex Assigned at Female 06/28/2023 7:21 PM NEWSPAPER CARRIERS SUPERVISOR Legal Sex Female 2:56 PM NEWSPAPER CARRIERS SUPERVISOR Gender Identity Female 07/01/2019 7:57 PM NEWSPAPER CARRIERS SUPERVISOR Sexual Orientation Straight 07/01/2019 7: 57 PM NEWSPAPER CARRIERS SUPERVISOR documented as of this encounter Plan of Treatment Upcoming Encounters Date Type Department Care Team (Latest Contact Info) Description 09/07/2024 3:45 PM CDT Office Visit Department of Otorhinolaryngology in [place], [place] [address] [place] [phone] Julieta Brice M.D. [address] [place] [phone] 09/22/2024 10:00 AM CDT Appointment Department of Cardiovascular Diseases in [address] [phone] Yanick Cartwright APRN, C.N.P. [address] [place] [phone] Discharge Disposition: Home or Self Care 09/22/2024 11:20 AM CDT Appointment Department of Laboratory Medicine in [address] [phone] Yanick Cartwright APRN, C.N.P. [address] [phone] 10/06/2024 7:30 AM CDT Clinical Communication Virtual Review in [place], [place] 200 [place] [phone] 10/11/2024 2:50 PM CDT Comprehensive Visit Division of Gastroenterology in [place], [place] [address] [place] [phone] Krishan Jeffrey M.B.BJairS. [address] [place] [phone] 12/04/2024 2:00 PM CDT Office Visit Department of Family Medicine, [facility], in [place], [place] [address] [place] [phone] Wendy Robles APRN, C.N.P. [address], [place] [phone] Scheduled Referrals Name Type Priority Associated Diagnoses Order Schedule Cardiovascular Disease - General cardiology consult (clinic) Outpatient Referral Routine Hypertension Essential Primary Dyspnea On Exertion Expected: 07/03/2024, Expires: 09/30/2025 documented as of this encounter Visit Diagnoses Diagnosis Hypertension Essential Primary- Primary Dyspnea On Exertion documented in this encounter Additional Health Concerns Assessment Noted Time PHQ-9 Depression Total Score: 10 025 11:16 AM NEWSPAPER CARRIERS SUPERVISOR documented as of this encounter Care Teams Hand Scudder Relationship Specialty Start Date End Date Lynn Jacobs M.D. [address] [place] [phone] PCP - General Family Medicine 04/03/24 documented as of this encounter
--- OUTSIDE RECORDS SUMMARY | 2024-08-29 04:22 | XMS_ITS | Encounter Summary ---
Author Organization [facility] Address [address] [place] [address] Care Team Providers Care Mainframe Architect Name Role Phone Lynn Jacobs M.D. Primary Care Provider [phone] Reason for Visit * Reason Comments Allergy Testing * Outpatient (Routine) - Closed Specialty Diagnoses / Procedures Referred By Peri gaytan Referred To Contact Diagnoses Rhinitis Allergic Procedures Northern Skin Test eRed Schmid M.D. [address] [place] [phone] Phone: tel: fax: [facility] Region Referral ID Status Reason Start Date Expiration Date Visits Re quested Visits Authorized [id number] Closed 07/17/2024 10/17/2025 1 1 Encounter Details Date Type Department Care Team (Latest Contact Info) Description 08/04/2024 9:30 AM CDT Clinical Support Department of Allergy in [place], [place] [address] [place] [phone] Reed Schmid M.D. [address] [place] [phone] Katherine Cha, RJairNJair [address] [place] [phone] Rhinitis Allergic Discharge Disposition: Home or Self Care Social History Tobacco Use Types Packs/Day Years Used Date Smoking Tobacco: Never Smokeless Tobacco: Never Alcohol Use Standard Drinks/Week Comments No 0 (1 standard drink = 0.6 oz pur e alcohol) [facility] Utilities Answer Date Recorded In the past 12 months has th e [employer], [employer], oil, or water [facility] threatened to shut off services in your [...] often do you attend chur ch or sikh services? 1 to 4 times per year 07/01/2019 Do you belong to any clubs o r organizations such as druze groups, unions, fraternal or athletic groups, or [...] Answer Date Recorded PHQ-2 Score 5 06/19/2024 [facility] [place] of Occupat ional Health - Occupational Stress [...] Sex Assigned at Female 06/28/2023 7:21 PM APPLICATIONS SALES CONSULTANT Legal Sex Female 2:56 PM APPLICATIONS SALES CONSULTANT Gender Identity Female 07/01/2019 7:57 PM APPLICATIONS SALES CONSULTANT Sexual Orientation Straight 07/01/2019 7: 57 PM APPLICATIONS SALES CONSULTANT documented as of this encounter Procedure Notes * Katherine Cha R.N. - 08/04/2024 9:30 AM CDTAssociated Order(s): ALI BASIC SKIN TEST; ALI NORTHERN SKIN TEST Panel Skin Tests Flowsheet Row Clinical Support from 08/04/2024 in Department of Allergy in [place], [place] Controls Histamine (15 min W/F) 9x9w/f Glycerine (15 min W/F) 0 [place] Basic Adult Panel [place], White: 0 Tacho, White: 0 Birch: 0 Free[place], Red: 0 [place], Eastern: 0 Silsbee: 0 Ary: 0 Imperial, Shagbark: 0 Maple: 0 Mat[place], White: 0 [place], Black: 0 Henderson: 0 [place], White: 0 [place]: 0 [place], Portuguese: 0 [place], Black: 0 Bailey: 0 Bermuda: 7x7f [place] Blue: 0 Orchard: 0 Quack: 7x7f Red Willards: 0 Franco: 0 Cocklebur: 0 Kochia: 0 James's Quarters: 0 Steele Elder, Burweed: 0 Mugwort, Common: 0 Nettle: 0 Plantain, Nepali: 0 Rough Pigweed: 0 Mosotho Thistle: 0 Short Ragweed: 0 [place], Sheep Red: 0 Cat Hair: 0 Cattle [...] CDT Office Visit Department of Otorhinolaryngology in [place], [place] [address] [place] [phone] Julieta Brice M.D. [address] [place] [phone] 09/22/2024 10:00 AM CDT Appointment Department of Cardiovascular Diseases in [address] [phone] Yanick Cartwright APRN, C.N.P. [address] [place] [phone] Discharge Disposition: Home or Self Care 09/22/2024 11:20 AM CDT Appointment Department of Laboratory Medicine in [address] [phone] Yanick Cartwright APRN, C.N.P. [address] [phone] 10/06/2024 7:30 AM CDT Clinical Communication Virtual Review in [place], [place] 200 [place] [phone] 10/11/2024 2:50 PM CDT Comprehensive Visit Division of Gastroenterology in [place], [place] [address] [place] [phone] Krishan Jeffrey M.B.BJairS. [address] [place] [phone] 12/04/2024 2:00 PM CDT Office Visit Department of Family Medicine, [facility], in [place], [place] [address] [place] [phone] Wendy Robles APRN, C.N.P. [address] [place] [phone] documented as of this encounter Procedures Procedure [...] from 08/04/2024 in Department of Allergy in [place], [place] Controls Histamine (15 min W/F) 9x9w/f Glycerine (15 min W/F) 0 [place] Basic Adult Panel [place], White: 0 Tacho, White: 0 Birch: 0 [place], Red: 0 Com[place], Eastern: 0 Silsbee: 0 Ary: 0 Imperial, Shagbark: 0 Maple: 0 [place], White: 0 [place], Black: 0 [place]: 0 [place], White: 0 [place]: 0 [place], Portuguese: 0 [place], Black: 0 Bailey: 0 Bermuda: 7x7f [place] Blue: 0 Orchard: 0 Quack: 7x7f Red Willards: 0 Franco: 0 Cocklebur: 0 Kochia: 0 James's Quarters: 0 Steele Elder, Burweed: 0 Mugwort, Common: 0 Nettle: 0 Plantain, Nepali: 0 Rough Pigweed: 0 Mosotho Thistle: 0 Short Ragweed: 0 [place], Sheep Red: 0 Cat Hair: 0 Cattle [...] from 08/04/2024 in Department of Allergy in [place], [place] Controls Histamine (15 min W/F) 9x9w/f Glycerine (15 min W/F) 0 [place] Basic Adult Panel Adriana, White: 0 Tacho, White: 0 Birch: 0 Free[place], Red: 0 Com[place], Eastern: 0 Silsbee: 0 Ary: 0 Imperial, Shagbark: 0 Maple: 0 [place], White: 0 [place], Black: 0 [place]: 0 [place], White: 0 [place]: 0 [place], Portuguese: 0 [place], Black: 0 Bailey: 0 Bermuda: 7x7f [place] Blue: 0 Orchard: 0 Quack: 7x7f Red Willards: 0 Franco: 0 Cocklebur: 0 Kochia: 0 James's Quarters: 0 Steele Elder, Burweed: 0 Mugwort, Common: 0 Nettle: 0 Plantain, Nepali: 0 Rough Pigweed: 0 Mosotho Thistle: 0 Short Ragweed: 0 [place], Sheep Red: 0 Cat Hair: 0 Cattle [...] Total Score: 10 06/19/ 025 11:16 AM APPLICATIONS SALES CONSULTANT documented as of this encounter Care Teams Mainframe Architect Relationship Specialty Start Date End Date Lynn Jacobs M.D. [address] [place] [phone] PCP - General Family Medicine 04/03/24 documented as of this encounter
--- OUTSIDE RECORDS SUMMARY | 2024-08-29 04:22 | XMS_ITS | Encounter Summary ---
Author Organization [facility] Address [address] [place] [address] Care Team Providers Care Research Librarian Name Role Phone Lynn Jacobs M.D. Primary Care Provider [phone] Encounter Details Date Type Department Care Team (Late st Contact Info) Description 08/09/2024 Results Follow-Up Department of Allergy in [place], [place] [address] [place] [phone] Reed Schmid M.D. [address] [place] [phone] Chicken Feathers, IgE, Chicken Droppings, IgE, Chicken Serum Proteins, IgE, Additional followed-up results: 5 Social History Tobacco Use Types Packs/Day Years Used Date Smoking Tobacco: Never Smokeless Tobacco: Never Alcohol Use Standard Drinks/Week Comments No 0 (1 standard drink = 0.6 oz pur e alcohol) [facility] Utilities Answer Date Recorded In the past 12 months has [facility] [employer] gas, oil, or water [employer] threatened to shut off services in your [...] How often do you attend chur or shinto services? 1 to 4 times per year 07/01/2019 Do you belong to any clubs o r organizations such as yazidism groups, unions, fraternal or athletic groups, or [...] Answer Date Recorded PHQ-2 Score 5 06/19/2024 [facility] of Occupat ional Health - [...] Answer Date Recorded Employment status Unemployed/not in [employer] paid workforce and NOT seeking employment 06/28/2023 Housing Stability Answer Date Recorded What is your living situation today? I have a [facility] place to live 06/28/2023 Education Answer Date Recorded What is the highest level of school you have completed or the highest degree you have received? GED or equivalent Comments No Sex and Gender Information Value Date Recorded Sex Assigned at Female 06/28/2023 7:21 PM BARGE CAPTAIN Legal Sex Female 2:56 PM BARGE CAPTAIN Gender Identity Female 07/01/2019 7:57 PM BARGE CAPTAIN Sexual Orientation Straight 07/01/2019 7: 57 PM BARGE CAPTAIN documented as of this encounter Plan of Treatment Upcoming Encounters Date Type Department Care Team (Latest Contact Info) Description 09/07/2024 3:45 PM CDT Office Visit Department of Otorhinolaryngology in [place], [place] [address] [place] [phone] Julieta Brice M.D. [address] [place] [address] 09/22/2024 10:00 AM CDT Appointment Department of Cardiovascular Diseases in [address] [place] [phone] Yanick Cartwright APRN, C.N.P. [address] [place] [phone] Discharge Disposition: Home or Self Care 09/22/2024 11:20 AM CDT Appointment Department of Laboratory Medicine in [place], [place] [address] [place] [address] Yanick Cartwright APRN, C.N.P. [address] [phone] 10/06/2024 7:30 AM CDT Clinical Communication Virtual Review in [place], [place] [address] [place] [address] 10/11/2024 2:50 PM CDT Comprehensive Visit Division of Gastroenterology in [place], [place] [address] [place] [phone] Krishan Jeffrey M.B.BJairSJair [address] [place] [phone] 12/04/2024 2:00 PM CDT Office Visit Department of Family Medicine, [facility], in [place], [place] [address] [place] [phone] Wendy Robles APRN, C.N.P. [address] [phone] documented as of this encounter Visit Diagnoses Not on filedocumented in this encounter Additional Health Concerns Assessment Noted Time PHQ-9 Depression Total Score: 10 025 11:16 AM BARGE CAPTAIN documented as of this encounter Care Teams Research Librarian Relationship Specialty Start Date End Date Lynn Jacobs M.D. [address] [place] [address] [place] [phone] PCP - General Family Medicine 04/03/24 documented as of this encounter
--- OUTSIDE RECORDS SUMMARY | 2024-08-29 04:22 | XMS_ITS | Encounter Summary ---
Author Organization [facility] Address [address] [place] [address] Care Team Providers Care Literary Writer Name Role Phone Lynn Jacobs M.D. Primary Care Provider [phone] Reason for Visit * Reason Comments Consult Allergic Rhinitis Shortness of Breath * Outpatient (Routine) - Closed Specialty Diagnoses / Procedures Referred By Contac t Referred To Contact Allergy and Immunology Diagnoses Allergy Seasonal Wendy Robles APRN, C.N.P. [address] [phone] Phone: tel: fax: [facility] Region Referral ID Status Reason Start Date Expiration Date V isits Requested Visits Authorized [id number] Closed Specialty Services Required 06/22/2024 12/22/2025 1 1 Encounter Details Date Type Department Care Team (Latest Contact Info) Description 08/04/2024 9:15 AM CDT Comprehensive Visit Department of Allergy in [place], [place] [address] [place] [phone] Reed Schmid M.D. [address] [place] [phone] Rhinitis Allergic Dust Mite (Primary Dx); Motion Vocal Fold Paradoxical; Rhinitis Allergic Due To Outdoor Pollen Discharge Disposition: Home or Self Care Social History Tobacco Use Types Packs/Day Years Used Date Smoking Tobacco: Never Smokeless Tobacco: Never Alcohol Use Standard Drinks/Week Comments No 0 (1 standard drink = 0.6 oz pur e alcohol) [facility] Utilities Answer Date Recorded In the past 12 months has e [employer], oil, or water [employer] threatened to shut off services in [...] any clubs o r organizations such as hoahaoism groups, unions, fraternal or athletic groups, or [...] Answer Date Recorded PHQ-2 Score 5 06/19/2024 [place] of Occupat ional Health - Occupational Stress [...] your living situation today? I have a [facility] place to live 06/28/2023 Education Answer Date Recorded What is the highest level of school you have completed or the highest degree you have received? GED or equivalent Comments No Sex and Gender Information Value Date Recorded Sex Assigned at Female 06/28/2023 7:21 PM MINGLER OPERATOR Legal Sex Female 2:56 PM MINGLER OPERATOR Gender Identity Female 07/01/2019 7:57 PM MINGLER OPERATOR Sexual Orientation Straight 07/01/2019 7: 57 PM MINGLER OPERATOR documented as of this encounter Last Filed [...] Body Mass Index 30.89 07/03/2024 11:14 AM MINGLER OPERATOR documented in this encounter Consult Notes * [...] is accompanied by her today. An in-person senior electronics design engineer was present for theentire visit. She reports [...] Proteins, IgE; Future; Expected date: 08/04/2024 - [place] Feathers, IgE; Future; Expected date: 08/04/2024 - [...] CDT Office Visit Department of Otorhinolaryngology in [place], [place] [address] [place] [address] Julieta Brice M.D. [address] [place] [address] 09/22/2024 10:00 AM CDT Appointment Department of Cardiovascular Diseases in [place], [place] [address] [place] [address] Yanick Cartwright, HEAD OF CYTOGENETICS, C.N.P. [address] [place] [phone] Discharge Disposition: Home or Self Care 09/22/2024 11:20 AM CDT Appointment Department of Laboratory Medicine in [address] [phone] Yanick Cartwright APRN, C.N.P. [address] [place] [address] 10/06/2024 7:30 AM CDT Clinical Communication Virtual Review in [place], [place] [address] [place] [address] 10/11/2024 2:50 PM CDT Comprehensive Visit Division of Gastroenterology in [place], [place] [address] [place] [phone] Krishan Jeffrey M.B.BJairSJair [address] [place] [phone] 12/04/2024 2:00 PM CDT Office Visit Department of Family Medicine, [facility], in [place], [place] [address] [place] [phone] Wendy Robles APRN, C.N.P. [address] [phone] documented as of this encounter Results * Immunoglobulin E (IgE) (08/04/2024 10:44 AM CDT) Immunoglobulin E (IgE), S 76.2 <=214 kU/L 08/07/2024 6:17 PM CDT [facility] Blood (Blood, Venous) 08/04/2024 10:44 AM CDT 08/07/2024 2:24 PM CDT us Reed Schmid M.D. LAB BLOOD ADD-ON Final Resu lt Performing Organization Address City/[facility]/ZIP Co de Phone Number [facility] [address] [place] [address] [facility] [address] [place] [address] * Mouse Urine Protein, IgE (08/04/2024 10:44 AM CDT) Mouse Urine Protein, IgE <0.10 <0.70 kU/L 08/07/2024 6:17 PM CDT [facility] Comment:Class 0 (Negative <0 .10) Blood (Blood, Venous) 08/04/2024 10:44 AM CDT 08/07/2024 2:24 PM CDT Reed Schmid M.D. LAB BLOOD ADD-ON Final Resu lt Performing Organization Address City/[facility] Co de Phone Number [facility] [address] [place] [address] [facility] [address] [place] [address] * Mouse Serum Protein, IgE (08/04/2024 10:44 AM CDT) Mouse Serum Protein, IgE <0.10 <0.70 kU/L 08/07/2024 6:17 PM CDT [facility] Comment:Class 0 (Negative <0 .10) Blood (Blood, Venous) 08/04/2024 10:44 AM CDT 08/07/2024 2:24 PM CDT Reed Schmid M.D. LAB BLOOD ADD-ON Final Resu lt Performing Organization Address City/[facility] Co de Phone Number [facility] [address] [place] [address] [facility] [address] [place] [address] * Mouse Epithelium, IgE (08/04/2024 10:44 AM CDT) Mouse Epithelium, IgE <0.10 <0.70 kU/L 08/07/2024 6:16 PM CDT [facility] Comment:Class 0 (Negative <0 .10) Blood (Blood, Venous) 08/04/2024 10:44 AM CDT 08/07/2024 2:24 PM CDT Reed Schmid M.D. LAB BLOOD ADD-ON Final Resu lt Performing Organization Address [facility] Co de Phone Number [facility] [address] [place] [address] [facility] [address] [place] [place] [address] * [place] Feathers, IgE (08/04/2024 10:44 AM CDT) Pathologist [facility] [place] Feathers, IgE <0.10 <0.70 kU/L 08/07/2024 6:16 PM CDT [facility] Comment:Class 0 (Negative <0 .10) Blood (Blood, Venous) 08/04/2024 10:44 AM CDT 08/07/2024 2:24 PM CDT Reed Schmid M.D. LAB BLOOD ADD-ON Final Resu lt Performing Organization Address [facility] de Phone Number [facility] [address] [place] [address] [facility] [address] [place] [address] * Chicken Serum Proteins, IgE (08/04/2024 10:44 AM CDT) Chicken Serum Proteins, IgE <0.10 <0.70 kU/L 08/07/2024 6:28 PM CDT [facility] Comment: Class 0 (Negative <0.10) ----ADDITIONAL INFORMATION---- This test was developed and its performance characteristics determined by [facility] in a manner consistent with CLIA requirements. This test has not been cleared or approved by the U.S. Food and Drug Administration. Blood (Blood, Venous) 08/04/2024 10:44 AM CDT 08/07/2024 2:24 PM CDT Reed Schmid M.D. LAB BLOOD ADD-ON Final Resu lt Performing Organization Address City/[facility]/ZIP Co de Phone Number [facility] [address] [place] [address] [facility] [address] [place] [address] * Chicken Droppings, IgE (08/04/2024 10:44 AM CDT) Chicken Droppings, IgE <0.10 <0.70 kU/L 08/07/2024 6:27 PM CDT [facility] Comment: Class 0 (Negative <0.10) ----ADDITIONAL INFORMATION---- This test was developed and its performance characteristics determined by [facility] in a manner consistent with CLIA requirements. This test has not been cleared or approved by the U.S. Food and Drug Administration. Blood (Blood, Venous) 08/04/2024 10:44 AM CDT 08/07/2024 2:24 PM CDT Reed Schmid M.D. LAB BLOOD ADD-ON Final Resu lt Performing Organization Address [facility] Co de Phone Number [facility] [address] [place] [address] [facility] [address] [place] [place] [address] * Chicken Feathers, IgE (08/04/2024 10:44 AM CDT) Chicken Feathers, IgE <0.10 <0.70 kU/L 08/07/2024 6:16 PM CDT [facility] Comment:Class 0 (Negative <0 .10) Blood (Blood, Venous) 08/04/2024 10:44 AM CDT 08/07/2024 2:24 PM CDT Reed Schmid M.D. LAB BLOOD ADD-ON Final Resu lt [facility] [address] [place] [address] [facility] [address] [place] [address] documented in this encounter Visit Diagnoses Diagnosis Rhinitis Allergic Dust Mite- Primary Motion Vocal Fold Paradoxical Rhinitis Allergic Due To Outdoor Pollen documented in this encounter Additional Health Concerns Assessment Noted Time PHQ-9 Depression Total Score: 10 025 11:16 AM MINGLER OPERATOR documented as of this encounter Care Teams Literary Writer Relationship Specialty Start Date End Date Lynn Jacobs M.D. [address] [place] [phone] PCP - General Family Medicine 04/03/24 documented as of this encounter
--- OUTSIDE RECORDS SUMMARY | 2024-08-29 04:22 | XMS_ITS | Encounter Summary ---
Author Organization [facility] Address [address] [place] [address] Care Team Providers Care Sole Inker Name Role Phone Lynn Jacobs M.D. Primary Care Provider [phone] Reason for Referral * Cardiovascular-Diagnostic (Routine) - Authorized Specialty Diagnoses / Procedures Referred By Contac t Referred To Contact Diagnoses Dyspnea On Exertion Palpitations Procedures Echo Transthoracic (TTE) Yanick Cartwright APRN, C.N.P. [address], [place] [address] Phone: tel: fax: [facility] Region Referral ID Status Reason Start Date Expiration Date V isits Requested Visits Authorized [id number] Authorized 07/28/2024 10/28/2025 1 1 Reason for Visit * Reason Comments Advice Only * Outpatient (Routine) - Closed Specialty Diagnoses / Procedures Referred By Contact Referred To Contact Cardiovascular Diseases / Cardiovascular Disease Diagnoses Hypertension Essential Primary Dyspnea On Exertion Krishan Jeffrey M.B.BJairS. [address] [place] [address] Phone: tel: fax: [facility] Region Referral ID Status Reason Start Date Expiration Date Visits Re quested Visits Authorized [id number] Closed 07/03/2024 01/02/2026 1 1 Encounter Details Date Type Department Care Team (Latest Contact Info) Description 07/28/2024 1:30 PM CDT Comprehensive Visit Department of Cardiovascular Diseases in [place], [place] [address] [place] [address] Yanick Cartwright, CINTHIA, C.N.P. [address] [place] [address] Palpitations (Primary Dx); Dyspnea On Exertion; Hypertension Essential Primary Social History Tobacco Use Types Packs/Day Years Used Date Smoking Tobacco: Never Smokeless Tobacco: Never Alcohol Use Standard Drinks/Week Comments No 0 (1 standard drink = 0.6 oz pur e alcohol) [facility] Utilities Answer Date Recorded In the past 12 months has e [employer], gas, oil, or water [employer] threatened to shut off services in your [...] often do you attend chur ch or methodist services? 1 to 4 times per year [...] Answer Date Recorded PHQ-2 Score 5 06/19/2024 [facility] - Occupational Stress [...] Sex Assigned at Female 06/28/2023 7:21 PM RUCHING MACHINE OPERATOR Legal Sex Female 2:56 PM RUCHING MACHINE OPERATOR Gender Identity Female 07/01/2019 7:57 PM RUCHING MACHINE OPERATOR Sexual Orientation Straight 07/01/2019 7: 57 PM RUCHING MACHINE OPERATOR documented as of this encounter Last [...] Body Mass Index 31.21 07/03/2024 11:14 AM RUCHING MACHINE OPERATOR documented in this encounter Consult Notes * Yanick Cartwright, CINTHIA, C.N.P. - 07/28/2024 1:30 PM CDT SUBJECTIVE CHIEF COMPLAINT/REASON FOR VISIT Palpitations, dizziness, shortness of breath REFERRAL SOURCE Krishan Jeffrey M.B.B.S. HISTORY OF PRESENT ILLNESS Liv Evans is seen today for consultation in the setting of recent symptoms that were mentioned to her vice president industrial relations at a visit last month. She was [...] sleep disordered breathing. She did wear a clay shop supervisor prior to her visit with me today, [...] future. An echocardiogram was ordered by her vice president industrial relations but this has not been scheduled. CURRENT [...] Insecurity: No Food Insecurity (03/01/2024) [facility] Food Insecurity Do you worry your food will run out before you are able to buy more?: 1 Transportation Needs: No Transportation Needs (03/01/2024) [facility] Transportation Needs Does lack of transportation keep you from medical appointments?: 1 Does lack of transportation keep you from work, meetings or getting things that you need?: 1 Physical Activity: Sufficiently Active (06/28/2023) Exercise Vital Sign Days of Exercise per Week: 4 days Minutes of Exercise per Session: 40 min Intimate Partner Violence: Not At Risk (07/04/2019) [facility] Humiliation, Afraid, Rape, and Kick questionnaire Fear of Current or Ex-Partner: No Emotionally Abused: No Physically Abused: No Sexually Abused: No Housing Stability: Medium Risk (03/01/2024) [facility] Housing Stability What is your housing [...] CDT Office Visit Department of Otorhinolaryngology in [place], [place] [address] [place] [address] Julieta Brice M.D. [address] [place] [address] 09/22/2024 10:00 AM CDT Appointment Department of Cardiovascular Diseases in [address] [phone] Yanick Cartwright APRN, C.N.P. [address] [phone] Discharge Disposition: Home or Self Care 09/22/2024 11:20 AM CDT Appointment Department of Laboratory Medicine [place] [address] [place] [phone] Yanick Cartwright APRN, C.N.P. [address] [phone] 10/06/2024 7:30 AM CDT Clinical Communication Virtual Review in [place], [place] [address] [place] [phone] 10/11/2024 2:50 PM CDT Comprehensive Visit Division of Gastroenterology in [place], [place] [address] [place] [phone] Krishan Jeffrey M.B.B.S. [address] [place] [phone] 12/04/2024 2:00 PM CDT Office Visit Department of Family Medicine, [facility], in [place], [place] [address] [phone] Wendy Robles APRN, C.N.P. [address] [phone] Scheduled Orders Name Type Priority Associated Diagnoses [...] Depression Total Score: 10 025 11:16 AM RUCHING MACHINE OPERATOR documented as of this encounter Care Teams Sole Inker Relationship Specialty Start Date End Date Lynn Jacobs M.D. [address] [place] [address] PCP - General Family Medicine 04/03/24 documented as of this encounter
--- OUTSIDE RECORDS SUMMARY | 2024-08-29 04:22 | XMS_ITS | Encounter Summary ---
Author Organization [facility] Address [address] [place] [address] Care Team Providers Care Cable Way Operator Name Role Phone Lynn Jacobs M.D. Primary Care Provider [phone] Reason for Referral * Outpatient (Routine) - Closed Specialty Diagnoses / Procedures Referred By Contac t Referred To Contact Diagnoses Rhinitis Allergic Procedures Northern Skin Test Reed Schmid M.D. [address] [place] [address] Phone: tel: fax: [facility] Region Referral ID Status Reason Start Date Expiration Date Visits Re quested Visits Authorized [id number] Closed 07/17/2024 10/17/2025 1 1 INERY BLOCKER * Outpatient (Routine) - Closed Specialty Diagnoses / Procedures Referred By Contac t Referred To Contact Diagnoses Rhinitis Allergic Procedures Basic Skin Test Reed Schmid M.D. [address] [place] [address] Phone: tel: fax: [facility] Region Referral ID Status Reason Start Date Expiration Date Visits Re quested Visits Authorized [id number] Closed 07/17/2024 10/17/2025 1 1 INERY BLOCKER Reason for Visit * Reason Onset Date Comments Previsit Preparation 07/14/2024 Encounter Details Date Type Department Care Team (Latest Contact Info) Description 07/14/2024 Clinical Communication Department of Allergy in [place], [place] [address] [place] [phone] Emmy Caraballo, L.P.N. Previsit Preparation Social History Tobacco Use Types Packs/Day Years Used Date Smoking Tobacco: Never Smokeless Tobacco: Never Alcohol Use Standard Drinks/Week Comments No 0 (1 standard drink = 0.6 oz pur e alcohol) [facility] Utilities Answer Date Recorded In the past 12 months has e Global Filmdemic, gas, oil, or water [place] threatened to shut off services in your [...] any clubs o r organizations such as anglican groups, unions, fraternal or athletic groups, or [...] Answer Date Recorded PHQ-2 Score 5 06/19/2024 [facility] [...] your living situation today? I have a [facility] place to live 06/28/2023 Education Answer Date Recorded What is the highest level of school you have completed or the highest degree you have received? GED or equivalent Comments No Sex and Gender Information Value Date Recorded Sex Assigned at Female 06/28/2023 7:21 PM MILLINERY BLOCKER Legal Sex Female 2:56 PM MILLINERY BLOCKER Gender Identity Female 07/01/2019 7:57 PM MILLINERY BLOCKER Sexual Orientation Straight 07/01/2019 7: 57 PM MILLINERY BLOCKER documented as of this encounter Plan of Treatment Upcoming Encounters Date Type Department Care Team (Latest Contact Info) Description 09/07/2024 3:45 PM CDT Office Visit Department of Otorhinolaryngology in [place], [place] [address] [place] [phone] Julieta Brice M.D. [address] [place] [phone] 09/22/2024 10:00 AM CDT Appointment Department of Cardiovascular Diseases in [address] [phone] Yanick Cartwright APRN, C.N.P. [address] [phone] Discharge Disposition: Home or Self Care 09/22/2024 11:20 AM CDT Appointment Department of Laboratory Medicine in [address] [phone] Yanick Cartwright APRN, C.N.P. [address] [phone] 10/06/2024 7:30 AM CDT Clinical Communication Virtual Review in [place], [place] [address] [place] [address] 10/11/2024 2:50 PM CDT Comprehensive Visit Division of Gastroenterology in [place], [place] [address] [place] [address] Krishan Jeffrey M.B.B.S. [address] [place] [phone] 12/04/2024 2:00 PM CDT Office Visit Department of Family Medicine, [facility], in [place], [place] [address] [place] [address] Wendy Robles APRN CJairNJairPJair [address] [place] [address] documented as of this encounter Results * Northern Skin Test (08/04/2024 9:30 AM CDT) Narrative MMODAL - 08/04/2024 9:30 AM CDT Katherine Cha RMarek 08/04/2024 10:55 AM Panel Skin Tests Flowsheet Row Clinical Support from 08/04/2024 in Department of Allergy in [place], [place] Controls Histamine (15 min W/F) 9x9w/f Glycerine (15 min W/F) 0 Kimberly Basic Adult Panel Adriana, White: 0 Tacho, White: 0 Birch: 0 [place], Red: 0 [place], Eastern: 0 Dol[place]: 0 Brewster: 0 Stearns, Shagbark: 0 Maple: 0 Northway, White: 0 Jackson, Black: 0 Romance: 0 [place], White: 0 Petaluma: 0 [place], Citizen Of [place]: 0 Ghent, Black: 0 Clarion: 0 Bermuda: 7x7f Kentucky Blue: 0 Orchard: 0 Quack: 7x7f Red Osage: 0 Franco: 0 Cocklebur: 0 Kochia: 0 James's Quarters: 0 Steele Elder, Burweed: 0 Mugwort, Common: 0 Nettle: 0 Plantain, Guinean: 0 Rough Pigweed: 0 Danish Thistle: 0 Short Ragweed: 0 Hickory Hills, Sheep Red: 0 Cat Hair: 0 Cattle [...] - 08/04/2024 9:30 AM CDT Katherine Cha RMarek 08/04/2024 10:55 AM Panel Skin Tests Flowsheet Row Clinical Support from 08/04/2024 in Department of Allergy in [place], [place] Controls Histamine (15 min W/F) 9x9w/f Glycerine (15 min W/F) 0 Kimberly Basic Adult Panel Adriana, White: 0 Tacho, White: 0 Birch: 0 [place], Red: 0 Vers[place], Eastern: 0 Dol[place]: 0 Brewster: 0 Stearns, Shagbark: 0 Maple: 0 Northway, White: 0 Jackson, Black: 0 Romance: 0 [place], White: 0 [place]: 0 [place], Citizen Of [place]: 0 G[place], Black: 0 Clarion: 0 B[place]: 7x7f Kentucky Blue: 0 Orchard: 0 Quack: 7x7f Red Osage: 0 Franco: 0 Cocklebur: 0 Kochia: 0 James's Quarters: 0 Steele Elder, Burweed: 0 Mugwort, Common: 0 Nettle: 0 Plantain, Guinean: 0 Rough Pigweed: 0 Danish Thistle: 0 Short Ragweed: 0 [place], Sheep Red: 0 Cat Hair: 0 Cattle [...] Depression Total Score: 10 025 11:16 AM MILLINERY BLOCKER documented as of this encounter Care Teams Cable Way Operator Relationship Specialty Start Date End Date Lynn Jacobs M.D. [address] [place] [address] [place] [address] PCP - General Family Medicine 04/03/24 documented as of this encounter
--- OUTSIDE RECORDS SUMMARY | 2024-08-29 04:22 | XMS_ITS | Encounter Summary ---
Author Organization [facility] Address [address] [place] [address] Care Team Providers Care Splunk Consultant Name Role Phone Lynn Jacobs M.D. 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 [address] [place] [address] Phone: tel:[phone] fax:[phone] [facility] Referral ID Status Reason Start Date Expiration Date Visits Requested Visits Authorized [id number] Authorized Specialty Services Required 07/03/2024 01/02/2026 1 1 Scheduling Instructions GIH consult should be scheduled after all testing AILER Encounter Details Date Type Department Care Team (Late st Contact Info) Description 07/03/2024 Orders Only Division of Pulmonary Medicine in [place], [place] [address] [place] [phone] Krishan Jeffrey M.B.B.S. 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 I have a [facility] place to live 06/28/2023 Education Answer Date Recorded What is the highest level of school you have completed or the highest degree you have received? GED or equivalent Comments No Sex and Gender Information Value Date Recorded Sex Assigned at Female 06/28/2023 7:21 PM BOBTAILER Legal Sex Female 2:56 PM BOBTAILER Gender Identity Female 07/01/2019 7:57 PM BOBTAILER Sexual Orientation Straight 07/01/2019 7: 57 PM BOBTAILER documented as of this encounter Plan of Treatment Upcoming Encounters Date Type Department Care Team (Latest Contact Info) Description 09/07/2024 3:45 PM CDT Office Visit Department of Otorhinolaryngology in [place], [place] [address] [place] [phone] Julieta Brice M.D. [address] [place] [phone] 09/22/2024 10:00 AM CDT Appointment Department of Cardiovascular Diseases in [address] [phone] Yanick Cartwright APRN, C.N.P. [address] [phone] Discharge Disposition: Home or Self Care 09/22/2024 11:20 AM CDT Appointment Department of Laboratory Medicine in [address] [phone] Yanick Cartwright APRN, C.N.P. [address] [phone] 10/06/2024 7:30 AM CDT Clinical Communication Virtual Review in [place], [place] 200 [place] [phone] 10/11/2024 2:50 PM CDT Comprehensive Visit Division of Gastroenterology in [address] [phone] Krishan Jeffrey M.B.BJairS. [address] [place] [phone] 12/04/2024 2:00 PM CDT Office Visit Department of Family Medicine, [facility], in [place], [place] [address] [place] [address] Wendy Robles APRN, C.N.P. 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 Please note [place] Sleepiness Scale score of 20 indicative of excessive daytime drowsiness. Physician: Roger Whitten M.D. [id number] Narrative Procedure Note Roger Whitten M.D., Ph.D. [...] with the patient is necessary. Please note [place] Sleepiness Scale score of 20 indicative ofexcessive daytime drowsiness. Physician: Roger Whitten M.D. [id number] us Krishan Triana PFT ORDERABLES Final Resu lt FRANKS PATY NAVAS * (ABNORMAL) Arterial Blood Gas - Rest (07/03/2024 12:23 PM BOBTAILER) Sample Site Right Radial Single Stick 07/03/2024 12:44 PM BOBTAILER DTL Patient Position Sit 07/03/19 12:44 PM BOBTAILER DTL Patient Activity Rest 07/03/19 12:44 PM BOBTAILER DTL FIO2 21.00 21%=AIR % 07/03/2024 12:44 PM BOBTAILER DTL pH Arterial 7.46(H) 7.35 - 7.45 07/03/2024 12:44 PM BOBTAILER DTL pCO2 Arterial 36.7 35.0 - 45.0 mm Hg 07/03/2024 12:44 PM BOBTAILER DTL pO2 Arterial 94.6 80.0 - 100.0 mm Hg 07/03/2024 12:44 PM BOBTAILER DTL Total Hemoglobin 12.8 11.6 - 15.0 g/dL 07/03/2024 12:44 PM BOBTAILER DTL O2 Saturation 93.3(L) 94.0 - 98.0 % 07/03/2024 12:44 PM BOBTAILER DTL Carboxyhemoglobin 3.9(H) 0.0 - 1.9 % 07/03/2024 12:44 PM BOBTAILER DTL Methemoglobin 1.0(H) 0.0 - 0.9 % 07/03/2024 12:44 PM BOBTAILER DTL Bicarbonate Conc 25.9 22.0 - 26.0 mmol/L 07/03/2024 12:44 PM BOBTAILER DTL Base Excess 2.0 0.0 - 2.0 mmol/L 07/03/2024 12:44 PM BOBTAILER DTL Maddox 0.00 07/03/2024 12:44 PM BOBTAILER DTL Activity Time 10.0 min 07/03/2024 12:44 PM BOBTAILER DTL Subcutaneous Lidocaine 0.0 mL 07/03/2024 12:44 PM BOBTAILER DTL O2 Devices N/A 07/03/2024 12:44 PM BOBTAILER DTL Blood (Blood, Arterial) 07/03/2024 12:23 PM BOBTAILER 07/03/2024 12:43 PM BOBTAILER Krishan Triana LAB BLOOD ADD-ON Final Res ult [facility] 200 [place] [address], [facility] 200 [place] [address] documented in this encounter Visit Diagnoses Diagnosis Vasculitis- Primary Dizziness Dyspnea On Exertion 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 [address] [place] [phone] PCP - General Family Medicine 04/03/24 documented as of this encounter
--- OUTSIDE RECORDS SUMMARY | 2024-08-29 04:22 | XMS_ITS | Encounter Summary ---
Author Organization [facility] Address [address] [place] [address] Care Team Providers Care Manager Test Name Role Phone Lynn Jacobs M.D. Primary Care Provider [phone] Encounter Details Date Type Department Care Team (Latest Contact Info) Description 08/04/2024 10:37 AM CDT - 08/04/2024 11:59 PM CDT Hospital Encounter Department of Laboratory Medicine in [place], [place] [address] [place] [phone] Reed Schmid M.D. [address] [place] [phone] Rhinitis Allergic Discharge Disposition: Home or Self Care Social History Tobacco Use Types Packs/Day Years Used Date Smoking Tobacco: Never Smokeless Tobacco: Never Alcohol Use Standard Drinks/Week Comments No 0 (1 standard drink = 0.6 oz pur e alcohol) [facility] Utilities Answer Date Recorded In the past 12 months has Definition 6, oil, or water [place] threatened to shut off services in your [...] How often do you attend chur or restorationism services? 1 to 4 times per year [...] Answer Date Recorded PHQ-2 Score 5 06/19/2024 [facility] Occupat ional Health - [...] your living situation today? I have a [facility] place to live 06/28/2023 Education Answer Date Recorded What is the highest level of school you have completed or the highest degree you have received? GED or equivalent Comments No Sex and Gender Information Value Date Recorded Sex Assigned at Female 06/28/2023 7:21 PM TEAM MEMBER Legal Sex Female 2:56 PM TEAM MEMBER Gender Identity Female 07/01/2019 7:57 PM TEAM MEMBER Sexual Orientation Straight 07/01/2019 7: 57 PM TEAM MEMBER documented as of this encounter Medications at Time of Discharge beclomethasone (Qvar RediHaler) 80 mcg/actuation inhaler Inhale 1 puff 2 (two) times a day. Rinse mouth with water after use to reduce aftertaste and incidence of candidiasis. Do not swallow. 10.6 g 11 05/22/2024 fluticasone propionate (Flonase) 50 mcg/actuation nasal spray Administer 2 sprays into each nostril daily. 16 g 04/10/2024 levalbuterol (Xopenex HFA) 45 mcg/actuation inhaler [...] and eyelash line. 30 g 3 06/22/2024 hydroCHLOROthiaz patricia (HydroDiuril) 25 mg tablet Take 1 tablet (25 mg total) by mouth daily. 90 tablet 3 04/10/2024 5 documented as of this encounter Plan of Treatment Upcoming Encounters Date Type Department Care Team (Latest Contact Info) Description 09/07/2024 3:45 PM CDT Office Visit Department of Otorhinolaryngology in [place], [place] [address] [place] [address] Julieta Brice M.D. [address] [place] [address] 09/22/2024 10:00 AM CDT Appointment Department of Cardiovascular Diseases in [place], [place] [address] [place] [address] Yanick Cartwright, CINTHIA, C.N.P. [address] [place] [phone] Discharge Disposition: Home or Self Care 09/22/2024 11:20 AM CDT Appointment Department of Laboratory Medicine in [place], [place] [address] [place] [address] Yanick Cartwright APRN, C.N.P. [address] [phone] 10/06/2024 7:30 AM CDT Clinical Communication Virtual Review in [place], [place] [address] [place] [phone] 10/11/2024 2:50 PM CDT Comprehensive Visit Division of Gastroenterology in [place], [place] [address] [place] [phone] Krishan Jeffrey M.B.BJairS. [address] [place] [phone] 12/04/2024 2:00 PM CDT Office Visit Department of Family Medicine, [facility], in [place], [place] [address] [phone] Wendy Robles APRN, C.N.P. [address] [phone] documented as of this encounter Procedures [...] 76.2 <=214 kU/L 08/07/2024 6:17 PM CDT [facility] Blood (Blood, Venous) 08/04/2024 10:44 AM CDT 08/07/2024 2:24 PM CDT Reed Schmid M.D. LAB BLOOD ADD-ON Final Resu lt Performing Organization Address City/[facility]/ZIP Co de Phone Number [facility] [address] [place] [address] [facility] [address] [place] [address] * Mouse Urine Protein, IgE (08/04/2024 10:44 AM CDT) Pathologist [facility] Mouse Urine Protein, IgE <0.10 <0.70 kU/L 08/07/2024 6:17 PM CDT [facility] Comment:Class 0 (Negative <0 .10) Blood (Blood, Venous) 08/04/2024 10:44 AM CDT 08/07/2024 2:24 PM CDT Reed Schmid M.D. LAB BLOOD ADD-ON Final Resu lt Performing Organization Address City/[facility]/ZIP Co de Phone Number [facility] [address] [place] [address] [facility] [address] [place] [address] * Mouse Serum Protein, IgE (08/04/2024 10:44 AM CDT) [facility] Mouse Serum Protein, IgE <0.10 <0.70 kU/L 08/07/2024 6:17 PM CDT [facility] Comment:Class 0 (Negative <0 .10) Blood (Blood, Venous) 08/04/2024 10:44 AM CDT 08/07/2024 2:24 PM CDT Reed Schmid M.D. LAB BLOOD ADD-ON Final Resu lt [facility] [address] [place] [address] [facility] [address] [place] [address] * Mouse Epithelium, IgE (08/04/2024 10:44 AM CDT) [facility] Mouse Epithelium, IgE <0.10 <0.70 kU/L 08/07/2024 6:16 PM CDT [facility] Comment:Class 0 (Negative <0 .10) Blood (Blood, Venous) 08/04/2024 10:44 AM CDT 08/07/2024 2:24 PM CDT Reed Schmid M.D. LAB BLOOD ADD-ON Final Resu lt Performing Organization Address City/[facility]/ZIP Co de Phone Number [facility] [address] [place] [address] [facility] [address] [place] [address] * [place] Feathers, IgE (08/04/2024 10:44 AM CDT) [facility] [place] Feathers, IgE <0.10 <0.70 kU/L 08/07/2024 6:16 PM CDT [facility] Comment:Class 0 (Negative <0 .10) Blood (Blood, Venous) 08/04/2024 10:44 AM CDT 08/07/2024 2:24 PM CDT Reed Schmid M.D. LAB BLOOD ADD-ON Final Resu lt [facility] [address] [place] [address] [facility] [address] [place] [address] * Chicken Serum Proteins, IgE (08/04/2024 10:44 AM CDT) [facility] Chicken Serum Proteins, IgE <0.10 <0.70 kU/L 08/07/2024 6:28 PM CDT [facility] Comment: Class 0 (Negative <0.10) ----ADDITIONAL INFORMATION---- This test was developed and its performance characteristics determined by [facility] in a manner consistent with CLIA requirements. This test has not been cleared or approved by the U.S. Food and Drug Administration. Blood (Blood, Venous) 08/04/2024 10:44 AM CDT 08/07/2024 2:24 PM CDT Reed Schmid M.D. LAB BLOOD ADD-ON Final Resu lt [facility] [address] [place] [place] [address] [facility] [address] [place] [address] * Chicken Droppings, IgE (08/04/2024 10:44 AM CDT) [facility] Chicken Droppings, IgE <0.10 <0.70 kU/L 08/07/2024 6:27 PM CDT [facility] Comment: Class 0 (Negative <0.10) ----ADDITIONAL INFORMATION---- This test was developed and its performance characteristics determined by [facility] in a manner consistent with CLIA requirements. This test has not been cleared or approved by the U.S. Food and Drug Administration. Blood (Blood, Venous) 08/04/2024 10:44 AM CDT 08/07/2024 2:24 PM CDT Reed Schmid M.D. LAB BLOOD ADD-ON Final Resu lt Performing Organization Address City/[facility] Co de Phone Number [facility] [address] [place] [address] [facility] [address] [place] [address] * Chicken Feathers, IgE (08/04/2024 10:44 AM CDT) Chicken Feathers, IgE <0.10 <0.70 kU/L 08/07/2024 6:16 PM CDT [facility] Comment:Class 0 (Negative <0 .10) Blood (Blood, Venous) 08/04/2024 10:44 AM CDT 08/07/2024 2:24 PM CDT Reed Schmid M.D. LAB BLOOD ADD-ON Final Resu lt Performing Organization Address [facility] de Phone Number [facility] [address] [place] [address] [facility] [address] [place] [address] documented in this encounter Visit Diagnoses Diagnosis Rhinitis Allergic documented in this encounter Additional Health Concerns Assessment Noted Time PHQ-9 Depression Total Score: 10 025 11:16 AM TEAM MEMBER documented as of this encounter Care Teams Manager Test Relationship Specialty Start Date End Date Lynn Jacobs M.D. NPLibra: [phone] [address] [place] [address] [place] [address] PCP - General Family Medicine 04/03/24 documented as of this encounter
--- OUTSIDE RECORDS SUMMARY | 2024-08-29 04:22 | XMS_ITS | Encounter Summary ---
Author Organization [facility] Address [address] [place] [address] Care Team Providers Care Systems Consultant Name Role Phone Lynn Jacobs M.D. Primary Care Provider [phone] Reason for Referral * Outpatient (Routine) - Authorized Specialty Diagnoses / Procedures Referred By Peri gaytan Referred To Contact General Surgery Diagnoses Arteritis Giant Cell (HCC) Lynn Jacobs M.D. [address] [place] [address] Phone: tel: fax: [facility] Region Referral ID Status Reason Start Date Expiration Date Visits Requested Visits Authorized [id number] Authorized Specialty Services Required 08/28/2024 02/27/2026 1 1 Reason for Visit * Reason Comments Facial Pain R facial pain/deepali e feeling with headaches X 3 weeks * Appointment Request (Routine) - Closed Specialty Diagnoses / Procedures Referred By Peri gaytan Referred To Contact Family Medicine Referral ID Status Reason Start Date Expiration Date Visits Re quested Visits Authorized [id number] Closed 08/21/2024 11/21/2025 1 1 Encounter Details Date Type Department Care Team (Late st Contact Info) Description 08/28/2024 9:40 AM CDT Office Visit Department of Family Medicine, [facility], in [place], [place] [address] [place] [address] Lynn Jacobs M.D. [address] [place] [address] Headache Unspecified (Primary Dx); Arteritis Giant Cell (HCC); Hypertension Essential Primary Social History Tobacco Use Types Packs/Day Years Used Date Smoking Tobacco: Never Smokeless Tobacco: Never Tobacco Cessation:Counseling Given: Not Answered Alcohol Use Standard Drinks/Week Comments No 0 (1 standard drink = 0.6 oz pur e alcohol) [facility] Utilities Answer Date Recorded In the past 12 months has e [employer], [employer], oil, or water [employer] threatened to shut off services in your [...] any clubs o r organizations such as episcopalian groups, unions, fraternal or athletic groups, or [...] 06/19/2024 [facility] ional [facility] - Occupational Stress Questionnaire Answer Date Recorded [...] Sex Assigned at Female 06/28/2023 7:21 PM APPRENTICE MACHINIST OUTSIDE Legal Sex Female 2:56 PM APPRENTICE MACHINIST OUTSIDE Gender Identity Female 07/01/2019 7:57 PM APPRENTICE MACHINIST OUTSIDE Sexual Orientation Straight 07/01/2019 7: 57 PM APPRENTICE MACHINIST OUTSIDE documented as of this encounter Last Filed Vital Signs Vital Sign Reading Time Taken Comments Blood Pressure 145/100 08/28/2024 8:53 AM CDT Pulse 77 08/28/2024 8:53 AM CDT Temperature 36.9 C (98.4 F) 08/28/2024 8:47 AM CDT Respiratory Rate - - Oxygen Saturation - - Inhaled Oxygen Concentration - - Weight 79 kg (174 lb 2.6 oz) 08/28/2024 8:47 AM CDT Height 160 cm (5' 2.99) 08/28/2024 8:47 AM CDT Body Mass Index 30.86 08/28/2024 8:47 AM CDT documented in this encounter Progress Notes * Lynn Jacobs M.D. 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 - Presenting with right-sided facial discomfort described as a strange sensation and pressure around the right eye and cheek. Initially started as pain in the eyebrow area about 2 months ago, then expanded to around the eye 3 weeks ago, and spread to the cheek this past weekend. - Headaches around the right eye started about 3 weeks ago, with one week of severe headache that did not respond to prescription medication. Headaches have decreased in intensity but facial discomfort persists. - Left eye twitching. - Reports difficulty with focus and concentration, which is worsening. - Describes sensation of veins moving and pressure on the right side of face, particularly near the eyes. - Reports that symptoms are getting worse, not better. - Light sensitivity, with flashing lights causing dizziness. - Experienced nausea this morning, attributed to heartburn causes. - Reports no other associated symptoms including numbness in upper lower extremity, visual disturbance, difficulty swallowing, slurred speech, dizziness - Symptoms fluctuate in severity. Past Medical History: - History of vasculitis. - Hypertension - not currently taking medication as it wasn't working. Awaiting clinical biochemical geneticist appointment. - Previously prescribed two medications for blood pressure control hydrochlorothiazide and metoprolol for palpitation. - Visited eye doctor 2 weeks ago who reported everything looked fine. Additional eye tests scheduled for this . - Recently visited [facility] Department for these symptoms. CT scan was normal,and stroke was ruled out. Received IV fluids which helped with headaches temporarily. Allergies Allergen Reactions Albuterol Palpitations Latex Other (see comments) and Itching Possible reaction, not confirmed Pt reports a little tightness with breathing and itching Sulfa (Sulfonamide Antibiotics) Other (see comments) Unknown reaction Sulfamethoxazole-Trimethoprim Other (see comments) Cerner list no reaction Penicillins Hives (Reselect Reaction), Other (see comments) and Rash Sulfamethoxazole Rash Trimethoprim Rash Current Medications[1] Medical History[2] Social History[3] REVIEW OF SYSTEMS Vitals: 08/28/24 0847 08/28/24 0853 BP: (!) 148/102 (!) 145/100 BP Location: Right arm Right arm Patient Position: Sitting Sitting Cuff Size: Regular Regular Pulse: 77 77 Temp: 36.9 ??C Weight: 79 kg Height: 160 cm Constitutional Appearance: She is well-developed. HENT Head: Normocephalic and atraumatic. Right Ear: External ear normal. Left Ear: External ear normal. Nose: Nose normal. Eyes Conjunctiva/sclera: Conjunctivae normal. Pupils: Pupils are equal, round, and reactive to light. Cardiovascular Rate and Rhythm: Normal rate and regular rhythm. Heart sounds: Normal heart sounds. Pulmonary Effort: Pulmonary effort is normal. No respiratory distress. Breath sounds: Normal breath sounds. Abdominal General: Bowel sounds are normal. There is no distension. Palpations: Abdomen is soft. There is no mass. Tenderness: There is no abdominal tenderness. There is no guarding. Musculoskeletal General: Normal range of motion. Cervical back: Normal range of motion and neck supple. Skin General: Skin is warm and dry. Neurological Mental Status: She is alert and oriented to person, place, and time. Deep Tendon Reflexes: Reflexes are normal and symmetric. Psychiatric Behavior: Behavior normal. Liv was seen today for facial pain. 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), can not rule out migraine headache as well, CT scan was negative for stroke - Investigations planned: Blood work, temporal artery biopsy to be arranged with surgery or ophthalmology - Treatment planned: Starting prednisone 60 mg immediately due to risk of vision loss - Differential diagnosis: Migraine headache to be considered if temporal arteritis is ruled out Hypertension Essential Primary - Assessment: Uncontrolled hypertension (149/100) - Treatment planned: Restart hydrochlorothiazide - Investigations planned: Follow-up with nurse for blood pressure check Other orders - hydroCHLOROthiazide (HydroDiuril) 25 mg tablet; Take 1 tablet (25 mg total) by mouth daily. - predniSONE (Deltasone) 20 mg tablet; Take 3 tablets (60 mg total) by mouth daily. [1] Current Outpatient Medications: hydroCHLOROthiazide (HydroDiuril) 25 mg tablet, Take 1 tablet (25 mg total) by mouth daily., Disp: 90 tablet, Rfl: 3 tacrolimus (Protopic) 0.1 % ointment, Apply 1 Application topically 2 (two) times a day. Apply to affected areas on eyebrows and eyelash line., Disp: 30 g, Rfl: 3 beclomethasone (Qvar RediHaler) 80 mcg/actuation inhaler, Inhale 1 puff 2 (two) times a day. Rinse mouth with water after use to reduce aftertaste and incidence of candidiasis. Do not swallow. (Patient not taking: Reported on 08/28/2024), Disp: 10.6 g, Rfl: 11 fluticasone propionate (Flonase) 50 mcg/actuation nasal spray, Administer 2 sprays into each nostril daily. (Patient not taking: Reported on 08/28/2024), Disp: 16 g, Rfl: 0 levalbuterol (Xopenex HFA) 45 mcg/actuation inhaler, Inhale 2 puffs every 6 (six) hours as needed for wheezing. (Patient not taking: Reported on 08/28/2024), Disp: 1 each, Rfl: 11 loratadine (Claritin) 10 mg tablet, Take 1 tablet (10 mg total) by mouth daily as needed for allergies. (Patient not taking: Reported on 08/28/2024), Disp: 30 tablet, Rfl: 3 metoprolol succinate (Toprol XL) 25 mg 24 hr tablet, Take 1 tablet (25 mg total) by mouth daily. Donot crush or chew. (Patient not taking: Reported on 08/28/2024), Disp: 90 tablet, Rfl: 3 naltrexone (Depade) 50 mg tablet, Take 1 tablet (50 mg total) by mouth daily. (Patient not taking: Reported on 08/28/2024), Disp: 100 tablet, Rfl: 3 omeprazole (PriLOSEC) [address] capsule, Take 1 capsule (20 mg total) by mouth 2 (two) times a day before morning and evening meals. (Patient not taking: Reported on 08/28/2024), Disp: 180 capsule, Rfl: 2 predniSONE (Deltasone) 20 mg tablet, Take 3 tablets (60 mg total) by mouth daily., Disp: 30 tablet,Rfl: 0 [2] Past Medical History: Diagnosis Date Asthma [...] Polycystic Ovary Syndrome 08/18/2010 Scoliosis 12/16/2017 [3] Social History Tobacco Use Smoking status: Never Smokeless tobacco: Never Vaping Use Vaping status: never used Substance Use Topics Alcohol use: No Drug use: Never documented in this encounter Plan of Treatment Upcoming Encounters Date Type Department Care Team (Latest Contact Info) Description 09/07/2024 3:45 PM CDT Office Visit Department of Otorhinolaryngology in [place], [place] [address] [place] [phone] Julieta Brice M.D. [address] [place] [phone] 09/22/2024 10:00 AM CDT Appointment Department of Cardiovascular Diseases in [place], [place] [address] [place] [phone] Yanick Cartwright APRN, C.N.P. [address] [place] [phone] Discharge Disposition: Home or Self Care 09/22/2024 11:20 AM CDT Appointment Department of Laboratory Medicine in [address] [phone] Yanick Cartwright APRN, C.N.P. [address] [phone] 10/06/2024 7:30 AM CDT Clinical Communication Virtual Review in [place], [place] [address] [place] [phone] 10/11/2024 2:50 PM CDT Comprehensive Visit Division of Gastroenterology in [place], [place] [address] [place] [phone] Krishan Jeffrey M.B.B.S. [address] [place] [phone] 12/04/2024 2:00 PM CDT Office Visit Department of Family Medicine, [facility], in [place], [place] [address] [place] [phone] RoblesWendy white, CINTHIA, C.N.P. [address] [phone] Scheduled Referrals Name Type Priority Associated Diagnoses Orde r Schedule General Surgery - General consult (clinic) Outpatient Referral Routine Arteritis Giant Cell (HCC) Expected: 08/28/2024, Expires: 11/27/2025 documented as of this encounter Results * (ABNORMAL) CBC with Differential, Blood (08/28/2024 10:03 AM CDT) Hemoglobin 13.8 11.6 - 15.0 g/dL 08/28/2024 10:26 AM CDT FB60 Hematocrit 40.7 35.5 - 44.9 % 08/28/2024 10:26 AM CDT FB60 Erythrocytes 4.50 3.92 - 5.13 x10(12)/L 08/28/2024 10:26 AM CDT FB60 MCV 90.4 78.2 - 97.9 fL 08/28/2024 10:26 AM CDT FB60 RBC Distrib Width 12.7 12.2 - 16.1 % 08/28/2024 10:26 AM CDT FB60 Platelet Count 368 157 - 371 x10(9)/L 08/28/2024 10:26 AM CDT FB60 Leukocytes 8.5 3.4 - 9.6 x10(9)/L 08/28/2024 10:26 AM CDT FB60 Neutrophils 4.02 1.56 - 6.45 x10(9)/L 08/28/2024 10:26 AM CDT FB60 Lymphocytes 3.75(H) 0.95 - 3.07 x10(9)/L 08/28/2024 10:26 AM CDT FB60 Monocytes 0.53 0.26 - 0.81 x10(9)/L 08/28/2024 10:26 AM CDT FB60 Eosinophils 0.13 0.03 - 0.48 x10(9)/L 08/28/2024 10:26 AM CDT FB60 Basophils <0.04 0.01 - 0.08 x10(9)/L 08/28/2024 10:26 AM CDT FB60 Blood (Blood, Venous) 08/28/2024 10:03 AM CDT 08/28/2024 10:04 AM CDT us Lynn Jacobs M.D. LAB BLOOD ADD-ON Final Resul t Performing Organization Address City/[facility]/ZIP Co de Phone Number [facility] [address] [place] [address], [facility] FB60 [facility] in [place] [address] [place] [address] * Sedimentation Rate (08/28/2024 10:03 AM CDT) Sedimentation Rate, B 14 0 - 29 mm/1 h 08/28/2024 3:26 PM CDT AUST Blood (Blood, Venous) 08/28/2024 10:03 AM CDT 08/28/2024 2:52 PM CDT us Lynn Jacobs M.D. LAB BLOOD ADD-ON Final Resul t Performing Organization Address City/[facility]/ZIP Co de Phone Number [facility] [address] [place] [address], [facility] - [facility] [address] [place] [address] documented in this encounter Visit Diagnoses Diagnosis Headache Unspecified- Primary Arteritis Giant Cell (HCC) Hypertension Essential Primary documented in this encounter Additional Health Concerns Assessment Noted Time PHQ-9 Depression Total Score: 10 06/19/2 025 11:16 AM APPRENTICE MACHINIST OUTSIDE documented as of this encounter Care Teams Systems Consultant Relationship Specialty Start Date End Date Lynn Jacobs M.D. [address] [facility] [place] [address] PCP - General Family Medicine 04/03/24 documented as of this encounter
--- OUTSIDE RECORDS SUMMARY | 2024-08-29 04:22 | XMS_ITS | Clinical Summary ---
Author Organization [facility] Address [address] [place] [phone] Phone Care Team Providers Care Alumni Relations Coordinator Name Role Phone Brinda Cordero MD Primary [...] Comments Blood Pressure 124/84 04/27/2023 11:01 AM BLOOD DONOR UNIT ASSISTANT Pulse 88 04/27/2023 11:01 AM BLOOD DONOR UNIT ASSISTANT Temperature 36.4 C (97.6 F) 04/27/2023 11:01 AM BLOOD DONOR UNIT ASSISTANT Respiratory Rate 16 03/16/2023 9:33 AM CDT Oxygen Saturation 98% 03/16/2023 9:33 AM CDT Inhaled Oxygen Concentration - - Weight 77.3 kg (170 lb 6.4 oz) 04/27/2023 11:01 AM BLOOD DONOR UNIT ASSISTANT Height 161.3 cm (5' 3.5) 04/27/2023 11:01 AM CS T Body Mass Index 29.71 04/27/2023 11:01 AM BLOOD DONOR UNIT ASSISTANT Plan of Treatment Health Maintenance Due Date Last Done Comments Pneumococcal PPSV23 Highest Risk Adult (1 of 3 - PCV13) 2007 COVID-19 Vaccine ( - 2023-2 5 season) 2024 04/07/2022, 02/26/2021, 02/05/2021 Influenza Vaccine (Season Ended) 2025 04/07/2022, 08/22/2021, 03/17/2019, Additional history exists Insurance PM INTERFACED INSURANCE PM INTERFACED INSURANCE Care Teams Alumni Relations Coordinator Relationship Specialty Start Date End Date Brinda Cordero MD [address] [place] [address] PCP - General Family Medicine 03/16/23
--- OUTSIDE RECORDS SUMMARY | 2024-08-29 04:22 | XMS_ITS | Encounter Summary ---
Author Organization [facility] Address [address] [place] [address] Care Team Providers Care Development Coach Name Role Phone Lynn Jacobs M.D. Primary Care Provider [phone] Reason for Visit * Reason Onset Date Comments Appt Request 06/23/2024 Encounter Details Date Type Department Care Team (Latest Contact Info) Description 06/23/2024 Clinical Communication Department of Otorhinolaryngology in [place], [place] [address] [place] [phone] Julieta Brice M.D. [address] [place] [phone] Appt Request Social History Tobacco Use Types Packs/Day Years Used Date Smoking Tobacco: Never Smokeless Tobacco: Never Alcohol Use Standard Drinks/Week Comments No 0 (1 standard drink = 0.6 oz pur e alcohol) [facility] Utilities Answer Date Recorded In the past 12 months has [facility] [employer], gas, oil, or water [employer] threatened to shut off services in [...] How often do you attend chur or pentecostal services? 1 to 4 times per year [...] Answer Date Recorded PHQ-2 Score 5 06/19/2024 [facility] Occupat [facility] - Occupational Stress Questionnaire Answer Date [...] your living situation today? I have a [facility] place to live 06/28/2023 Education Answer Date Recorded What is the highest level of school you have completed or the highest degree you have received? GED or equivalent Comments No Sex and Gender Information Value Date Recorded Sex Assigned at Female 06/28/2023 7:21 PM PRINCIPAL CLOUD ARCHITECT Legal Sex Female 2:56 PM PRINCIPAL CLOUD ARCHITECT Gender Identity Female 07/01/2019 7:57 PM PRINCIPAL CLOUD ARCHITECT Sexual Orientation Straight 07/01/2019 7: 57 PM PRINCIPAL CLOUD ARCHITECT documented as of this encounter Plan of Treatment Upcoming Encounters Date Type Department Care Team (Latest Contact Info) Description 09/07/2024 3:45 PM CDT Office Visit Department of Otorhinolaryngology in [place], [place] 200 [place] [phone] Julieta Brice M.D. [address] [place] [phone] 09/22/2024 10:00 AM CDT Appointment Department of Cardiovascular Diseases in [place], [place] [address] [place] [phone] Yanick Cartwright APRN, C.N.P. [address], [place] [phone] Discharge Disposition: Home or Self Care 09/22/2024 11:20 AM CDT Appointment Department of Laboratory Medicine in [place], [place] [address] [place] [phone] Yanick Cartwright APRN, C.N.P. [address], [place] [phone] 10/06/2024 7:30 AM CDT Clinical Communication Virtual Review in [place], [place] [address] [place] [phone] 10/11/2024 2:50 PM CDT Comprehensive Visit Division of Gastroenterology in [place], [place] [address] [place] [phone] Krishan Jeffrey M.B.BJairS. [address] [place] [phone] 12/04/2024 2:00 PM CDT Office Visit Department of Family Medicine, [facility], in [place], [place] [address] [place] [phone] Wendy Robles APRN, C.N.P. [address] [phone] documented as of this encounter Visit Diagnoses Not on filedocumented in this encounter Additional Health Concerns Assessment Noted Time PHQ-9 Depression Total Score: 10 025 11:16 AM PRINCIPAL CLOUD ARCHITECT documented as of this encounter Care Teams Development Coach Relationship Specialty Start Date End Date Lynn Jacobs M.D. [address] [place] [phone] PCP - General Family Medicine 04/03/24 documented as of this encounter
--- OUTSIDE RECORDS SUMMARY | 2024-08-29 04:23 | XMS_ITS | Clinical Summary ---
Author Organization [employer] [facility] [employer] [facility] Address [address] [place] [id number] Care Team Providers Care Park Activities Coordinator Name Role Phone Yinka Hankins MD Unavailable [phone] Brinda Cordero MD Primary Care Provider [phone] Mouna Marroquin RN Unavailable [phone] Allergies Active Allergy Reactions Criticality Noted Date Comments Latex Itching 01/04/2008 Pt reports a little tightness with breathing and itching Penicillins Hives 01/04/2008 Sulfamethoxazole-Trimethopr im 06/04/2008 Medications Mrygjigb-Yg-Lct -Fe-FA tab tablet Take 1 Tablet by [...] 04/07/2022 Obesity affecting , antepartum 04/24/2021 04/07/2022 [facility] Supervision of high-risk 03/11/2021 04/07/2022 Overview (03/11/2021): [facility] CONSULTATION ON 03/17/21 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 Estimated Date of Delivery: 09/10/21 Deaf - non speaking PCOS Infertility HTN - no meds Asthma Hx Migraines OB Hx: 2019 PTD 35w6d - PPROM, GDMA1 2013 PTD 34w1d - PPROM 30w4d (transfer from [facility] - [facility] assumed care) LAST GROWTH: 03/10/21 13w5d 01/21/21 6w2d REFERRING PHYSICIAN/PHONE/LAST UPDATE: Brinda Cordero MD [place] Primary MD approves scheduling of recommended ultrasounds/testing: [...] she is able to communicate through written Azeri COVID-19 affecting in second trimester 04/07/2022 Large for gestational age fe tus affecting management of mother, antepartum, first trimester, not applicable or unspecified fetus 04/07/2022 Short cervix 04/07/2022 Immunizations Immunization Administration Dates Next Due COVID-19 vaccine (web care [employer] NTech 30mcg/0.3mL) 12YO+ BIVALENT PF, MDV 04/07/2022 COVID-19 vaccine (web care [employer] NTBetween 30mcg/0.3mL) PF, MDV 02/26/2021,02/05/2021 DTP 12/05/1993, 1,1988,1988,1988 [...] Date Recorded PHQ-2 TOTAL SCORE 0 12/18/2021 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 Gender Identity Not on file Sexual Orientation [...] g 8 9 NEGRET E,BG Ahanya Delivery Location:[facility] Comments:pPROM at 30 4 /7 weeks 2019 35w 6d 2.27 kg (5 lb) F Vag None Y Livin g [place] n Delivery Location:[facility] ( [facility]) Last Filed Vital Signs Vital Sign Reading [...] of high risk in first trimester (HC) EDGE DRUMMER THIN PREP PAP SCREEN IMAGED Routine 05/16/2019 11:35 AM 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 Blood BLOOD SPECIMEN / Unknown Venipuncture / Unknown 03/05/2021 9:54 AM CDT 03/05/2021 9:54 AM CDT us Brinda Cordero MD SEND OUTS Final Resul t [facility] [address] [place] [address], [place] * ANTI HIV 1/2 (03/05/2021 9:54 AM CDT) HIV-1/HIV-2 ANTIBODY Non-Reacti ve Non-Reacti ve 03/05/2021 5:57 PM CDT [facility] Comment:HIV-1 p24 and HIV-1/ HIV-2 Ab not detected. Blood BLOOD SPECIMEN / Unknown Venipuncture / Unknown 03/05/2021 9:54 AM CDT 03/05/2021 9:54 AM CDT us Brinda Cordero MD SEND OUTS Final Resul t [facility] [address] [place] [address], [place] * EDGE DRUMMER THIN PREP PAP SCREEN IMAGED (05/16/2019 11:35 AM EMPLOYEE TRAINING SPECIALIST) Case Report Gynecologic Cytology Report Case: [id number] Authorizing Provider: Maribell Hong NP Collected: 05/16/2019 1135 Ordering Location: [facility] Received: 05/16/2019 1135 Clinic First Screen: Beckie Jay Specimen: EDGE DRUMMER ThinPrep Vial Screening, Cervical 05/25/2019 9:28 AM EMPLOYEE TRAINING SPECIALIST [facility] [facility] INTERPRETATION/ RESULT NEGATIVE FOR INTRAEPITHELIAL LESION OR MALIGNANCY (NIL) (none) 05/25/2019 9:28 AM EMPLOYEE TRAINING SPECIALIST [facility] at 0928 EMPLOYEE TRAINING SPECIALIST SPECIMEN ADEQUACY Satisfactory for evaluation Endocervical component present 05/25/2019 9:28 AM EMPLOYEE TRAINING SPECIALIST [facility] HPV REQUEST HPV if ASCUS 05/25/2019 9:28 AM EMPLOYEE TRAINING SPECIALIST [facility] Date of LMP 04/14/2019 05/25/2019 9:28 AM EMPLOYEE TRAINING SPECIALIST [employer] [facility] Last Pap Date 01/14/17 05/25/2019 9:28 AM EMPLOYEE TRAINING SPECIALIST [facility] Last Pap Result NIL 0 9:28 AM EMPLOYEE TRAINING SPECIALIST [facility] Abnormal Pap or [place] Bx in last 5 years No 05/25/2019 9:28 AM EMPLOYEE TRAINING SPECIALIST [facility] Menstrual Status Regular Periods 05/25/2019 9:28 AM EMPLOYEE TRAINING SPECIALIST [facility] Pl[place] Bx Done Today No 05/25/2019 9:28 AM EMPLOYEE TRAINING SPECIALIST [facility] Additional Information None given 05/25/2019 9:28 AM EMPLOYEE TRAINING SPECIALIST [facility] Comment: Cytology is screened at [facility] - [address], [place] [address] and [facility] - [address], [place] [address] and [facility] - [address] [place] [address] Interpreted at [facility] - [address], [place] [address] Automated Review Successful 05/25/2019 9:28 AM EMPLOYEE TRAINING SPECIALIST [facility] Comment:Specimen processed s uccessfully by automated customer service correspondence clerk device, ThinPrep Imaging System, [employer] Note The pap test is a screening technique, not a diagnostic procedure. It is used primarily to screen for squamous cancers and precursor lesions. Published studies have shown that it is subject to both false negative and false positive results. The pap test should not be used as the sole means to diagnose or exclude pre-malignant and malignant lesions. 05/25/2019 9:28 AM [facility] Other (Cervical) Non-Blood / Unknown 05/16/2019 11:35 AM EMPLOYEE TRAINING SPECIALIST 05/16/2019 11:35 AM EMPLOYEE TRAINING SPECIALIST Maribell Hong NP PATHOLOGY/CYTOLOGY Final Result [facility] [address] [place] [address], [place] from Last 3 Months or Most [...] Comments Code Status Discussion: Discussed Care Teams Park Activities Coordinator Relationship Specialty Start Date End Date Brinda Cordero MD [address] [place] [address] PCP - General Family Practice 02/26/21 Yinka Hankins MD [address] [place] [address] Rheumatology Rheumatology 12/10/15 Mouna Marroquin RN [address] [place] [id number] Tug Boat Engineer 06/19/21
--- OUTSIDE RECORDS SUMMARY | 2024-08-29 04:23 | XMS_ITS | Clinical Summary ---
Author Organization [facility] Address [address] [place] [address] Care Team Providers Care Physician Extender Name Role Phone Lynn Jacobs M.D. Primary Care Provider [phone] Source Comments Patient records contain information from all sites at [facility]. For routine questions regarding patient records, call [phone] during business hours, M-F 8:00 AM - 5:00 PM Central Time. Record requests for emergency care only can be directed to [phone] at any time.[facility] Allergies Active Allergy Reactions Criticality Noted Date [...] hours as needed for wheezing. 1 each Active Additional Information Patient not taking.Reported on 08/28/2024 fluticasone propionate (Flonase) 50 mcg/actuation nasal spray Administer 2 sprays into each nostril daily. 16 g 4 Active Additional Information Patient not taking.Reported on 08/28/2024 beclomethasone (Qvar RediHaler) 80 mcg/actuation inhaler Inhale 1 puff 2 (two) times a day. Rinse mouth with water after use to reduce aftertaste and incidence of candidiasis. Do not swallow. 10.6 g 11 5 Active Additional Information Patient not taking.Reported on 08/28/2024 loratadine (Claritin) 10 mg tablet Take 1 tablet (10 mg total) by mouth daily as needed for allergies. 30 tablet 3 5 Active Additional Information Patient not taking.Reported on 08/28/2024 omeprazole (PriLOSEC) [address] capsule Take 1 capsule (20 mg total) by mouth 2 (two) times a day before morning and evening meals. 180 capsule 2 5 Active Additional Information Patient not taking.Reported on 08/28/2024 metoprolol succinate (Toprol XL) 25 mg 24 hr tablet Take 1 tablet (25 mg total) by mouth daily. Do not crush or chew. 90 tablet 3 5 Active Additional Information Patient not taking.Reported on 08/28/2024 tacrolimus (Protopic) 0.1 % ointment Apply 1 Application topically 2 (two) times a day. Apply to affected areas on eyebrows and eyelash line. 30 g 3 5 Active naltrexone (Depade) 50 mg tablet Take 1 tablet (50 mg total) by mouth daily. 100 tablet 3 5 Active Additional Information Patient not taking.Reported on 08/28/2024 hydroCHLOROthi azide (HydroDiuril) 25 mg tablet Take 1 tablet (25 mg total) by mouth daily. 90 tablet 3 5 Active predniSONE (Deltasone) 20 mg tablet Take 3 tablets (60 mg total) by mouth daily. 30 tablet 5 Active hydroCHLOROthi azide (HydroDiuril) 25 mg tablet Take 1 tablet (25 mg total) by mouth daily. 90 tablet 3 4 08/29/19 25 Discontin ued(Reord er) Active Problems Patient Care Coordination No te Formatting of this note migh t be different from the original. OB education completed. Pre-reg completed at [facility]. LMP:05/18/2019 EDC:02/22/2020 [place] provider:Dr. Memo KING involved:, Jaxson Problem Noted [...] organization. Date Type Department Care Team Description 08/28/2024 9:45 AM CDT - 08/28/2024 11:59 PM CDT Hospital Encounter Department of Laboratory Medicine in [address] [address] Lynn Jacobs M.D. Headache Unspecified Discharge Disposition: Home or Self Care 08/28/2024 9:40 AM CDT Office Visit Department of Family Medicine, [facility], in [place], [place] [address] [place] [address] Lynn Jacobs M.D. Headache Unspecified (Primary Dx); Arteritis Giant Cell (HCC); Hypertension Essential Primary 08/17/2024 Orders Only Department of Family Medicine, [facility], in [place], [place] [address] [place] [address] Lynn Jacobs M.D. Vocal Cord Disease (Primary Dx) 08/09/2024 Results Follow-Up Department of Allergy in [place], [place] [address] [address] Reed Schmid M.D. Chicken Feathers, IgE, Chicken Droppings, IgE, Chicken Serum Proteins, IgE, Additional followed-up results: 5 08/04/2024 10:37 AM CDT - 08/04/2024 11:59 PM CDT Hospital Encounter Department of Laboratory Medicine in [place], [place] [address] [address] Reed Schmid M.D. Rhinitis Allergic Discharge Disposition: Home or Self Care 08/04/2024 9:30 AM CDT Clinical Support Department of Allergy in [place], [place] [address] [address] Reed Schmid M.D. Juenger, Carrie J, R.NJair Rhinitis Allergic Discharge Disposition: Home or Self Care 08/04/2024 9:15 AM CDT Comprehensive Visit Department of Allergy in [place], [place] [address] [address] Reed Schmid M.D. Rhinitis Allergic Dust Mite (Primary Dx); Motion Vocal Fold Paradoxical; Rhinitis Allergic Due To Outdoor Pollen Discharge Disposition: Home or Self Care 07/28/2024 1:30 PM CDT Comprehensive Visit Department of Cardiovascular Diseases in [place], [place] [address] [place] [address] Yanick Cartwright, CINTHIA, C.N.PJair Palpitations (Primary Dx); Dyspnea On Exertion; Hypertension Essential Primary 07/14/2024 Clinical Communication Department of Allergy in [place], [place] [address] [place] [address] Emmy Caraballo L.P.N. Previsit Preparation 07/05/2024 2:01 PM FUN HOUSE OPERATOR - 07/05/2024 11:59 PM FUN HOUSE OPERATOR Hospital Encounter Department of Cardiovascular Diseases in [place], [place] [address] [address] Babar Jc M.D. Tachycardia Discharge Disposition: Home or Self Care 07/04/2024 Orders Only Department of Cardiovascular Diseases in [place], [place] [address] [address] Babar Jc M.D. Tachycardia (Primary Dx) 07/03/2024 2:30 PM FUN HOUSE OPERATOR Diagnostic Division of Pulmonary Medicine in [place], [place] [address] [place] [address] Krishan Jeffrey M.B.B.S. Vasculitis (HCC); Dizziness; Dyspnea On Exertion 07/03/2024 11:30 AM FUN HOUSE OPERATOR Office Visit Division of Pulmonary Medicine in [place], [place] [address] [place] [address] Krishan Jeffrey M.B.B.S. Lung Interstitial Disease (HCC) 07/03/2024 7:23 AM FUN HOUSE OPERATOR - 07/03/2024 11:59 PM FUN HOUSE OPERATOR Hospital Encounter Department of Radiology, [facility] in [place], [place] [address] [place] [address] Krishan Jeffrey M.B.B.SJair Lung Interstitial Disease (HCC) Discharge Disposition: Home or Self Care 07/03/2024 Clinical Communication Department of Cardiovascular Medicine in [place], [place] [address] [place] [address] Member Of The Legislative CouncilZuhair M.D. 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 Appt Request 06/23/2024 Orders Only Division of Pulmonary Medicine in [place], [place] [address] [place] [address] Krishan Jeffrey M.B.B.S. Vasculitis (HCC) (Primary Dx) 06/22/2024 3:30 PM FUN HOUSE OPERATOR Comprehensive Visit Department of Family Medicine, [facility], in [place], [place] [address] [address] Wendy Robles APRN, CJairNJairPJair Allergy Seasonal (Primary Dx); Alopecia Areata; Depression; Other Stressful Life Events Affecting Family And Household 06/09/2024 8:52 AM FUN HOUSE OPERATOR - 06/09/2024 11:59 PM FUN HOUSE OPERATOR Hospital Encounter Department of Laboratory Medicine in [address] [address] Lynn Jacobs M.D. Pain In Joint; Leukocytosis Discharge Disposition: Home or Self Care 06/09/2024 Results Follow-Up Department of Family Medicine, [facility], in [place], [place] [address] [place] [address] Lynn Jacobs M.D. Sedimentation Rate, Rheumatoid Factor, CBC with Differential, Blood, Additional followed-up results: 3 from Last 3 Months Immunizations Immunization Administration [...] = 0.6 oz pur e alcohol) [facility] Utilities Answer Date Recorded In [...] often do you attend chur ch or taoism services? 1 to 4 times per year 07/01/2019 Do you belong to any clubs o r organizations such as spiritism groups, unions, fraternal or athletic groups, or [...] Answer Date Recorded PHQ-2 Score 5 06/19/2024 [facility] [...] your living situation today? [facility] 06/28/2023 Education Answer Date Recorded What is the highest level of school you have completed or the highest degree you have received? GED or equivalent Comments No Sex and Gender Information Value Date Recorded Sex Assigned at Female 06/28/2023 7:21 PM FUN HOUSE OPERATOR Legal Sex Female 2:56 PM FUN HOUSE OPERATOR Gender Identity Female 07/01/2019 7:57 PM FUN HOUSE OPERATOR Sexual Orientation Straight 07/01/2019 7: 57 PM FUN HOUSE OPERATOR Last Filed Vital Signs Vital Sign Reading Time Taken Comments Blood Pressure 145/100 08/28/2024 8:53 AM CDT Pulse 77 08/28/2024 8:53 AM CDT Temperature 36.9 C (98.4 F) 08/28/2024 8:47 AM CDT Respiratory Rate 16 05/22/2024 1:48 PM FUN HOUSE OPERATOR Oxygen Saturation 96% 07/03/2024 11:14 AM FUN HOUSE OPERATOR Inhaled Oxygen Concentration - - Weight 79 kg (174 lb 2.6 oz) 08/28/2024 8:47 AM CDT Height 160 cm (5' 2.99) 08/28/2024 8:47 AM CDT Body Mass Index 30.86 08/28/2024 8:47 AM CDT Plan of Treatment Upcoming Encounters Date Type Department Care Team (Latest Contact Info) Description 09/07/2024 3:45 PM CDT Office Visit Department of Otorhinolaryngology in [place], [place] [address] [place] [address] Julieta Brice M.D. [address] [place] [address] 09/22/2024 10:00 AM CDT Appointment Department of Cardiovascular Diseases in [address] [phone] Yanick Cartwright APRN, C.N.P. [address] [address] Discharge Disposition: Home or Self Care 09/22/2024 11:20 AM CDT Appointment Department of Laboratory Medicine in [address] [phone] Yanick Cartwright APRN, C.N.P. [address] [address] 10/06/2024 7:30 AM CDT Clinical Communication Virtual Review in [place], [place] [address] [place] [address] 10/11/2024 2:50 PM CDT Comprehensive Visit Division of Gastroenterology in [place], [place] [address] [place] [address] Krishan Jeffrey M.B.BJairS. [address] [place] [address] 12/04/2024 2:00 PM CDT Office Visit Department of Family Medicine, [facility], in [place], [place] [address] [phone] Wendy Robles APRN, C.N.P. [address] [phone] Health Maintenance Due Date Last Done Comments [...] 2024 , 08/22/2021, 03/17/2019, Additional history exists Lipid (Cholesterol) Screening 05/16/2024, 05/13/2018, 09/16/2015 Depression Screening (Annual PHQ-2) 05/17/2024 Office Visit for Blood Press ure Check / Re-check 11/27/2024 08/28/2024 Creatinine Level (Kidney Fun ction Test) 07/03/2025 07/03/2024, 05/22/2024, 06/29/2023, Additional history exists Potassium Level 07/03/2025 07/03/2024, 0 10/2024, 06/29/2023, Additional history exists Sodium Level 07/03/2025 07/03/2024, 0 10/2024, 06/29/2023, Additional history exists Visit: Chronic Disease, age 18+ 08/28/2025 DTaP,Tdap,and Td Vaccines (9 - Td or Tdap) 06/23/2031 06/23/2021, 12/06/2019, 09/12/2010, Additional history exists IPV Vaccines Completed 12/05/1993, 11/15, 10/05/1990, Additional history exists Hepatitis B Vaccines Completed 06/08/2001, 06/08/2001, 06/08/2001, Additional history exists Hepatitis A Vaccines Completed 09/12/2010, 02/25/2001, 02/25/2001 HPV Vaccines Completed 07/13/2012, 07/2010, 08/18/2010 Procedures Procedure Name Priority Date/Time Associated Diagnosis Comments CBC WITH DIFFERENTIAL, B Routine 08/28/2024 10:03 AM CDT Headache Unspecified SEDIMENTATION RATE, B Routine 08/28/2024 10:03 AM CDT Headache Unspecified IMMUNOGLOBULIN E (IGE), S Routine 08/04/2024 10:44 [...] Rhinitis Allergic HOLTER MONITOR - IN CLINIC IRIDOLOGIST Routine 07/06/2024 2:29 PM FUN HOUSE OPERATOR Tachycardia PUL HOME OVERNIGHT OXIMETRY Routine 07/05/2024 Vasculitis (HCC) Dizziness Dyspnea On Exertion ARTERIAL BLOOD GAS - PULMONARY CLINIC Routine 07/03/2024 12:23 PM FUN HOUSE OPERATOR Vasculitis (HCC) Dizziness PULMONARY FUNCTION TESTS Routine 07/03/2024 9:16 AM FUN HOUSE OPERATOR Lung Interstitial Disease (HCC) PH, U Routine 07/03/2024 8:48 AM FUN HOUSE OPERATOR OSMOLALITY, U Routine 07/03/2024 8:48 AM FUN HOUSE OPERATOR DIPSTICK, U Routine 07/03/2024 8:48 AM FUN HOUSE OPERATOR MICROSCOPIC AUTOMATED Routine 07/03/2024 8:48 AM FUN HOUSE OPERATOR URINALYSIS WITH MICROSCOPIC Routine 07/03/2024 8:48 AM FUN HOUSE OPERATOR Lung Interstitial Disease (HCC) C-REACTIVE PROTEIN (CRP), S/P Routine 07/03/2024 8:44 AM FUN HOUSE OPERATOR Vasculitis (HCC) SEDIMENTATION RATE, B Routine 07/03/2024 8:44 AM FUN HOUSE OPERATOR Vasculitis (HCC) BASIC METABOLIC PANEL, S/P Routine 07/03/2024 8:44 AM FUN HOUSE OPERATOR Lung Interstitial Disease (HCC) CBC WITH DIFFERENTIAL, B Routine 07/03/2024 8:44 AM FUN HOUSE OPERATOR Lung Interstitial Disease (HCC) CT CHEST WITHOUT IV CONTRAST RAD - Routine (most inpatients and all outpatients) 07/03/2024 8:14 AM FUN HOUSE OPERATOR Lung Interstitial Disease (HCC) CBC WITH DIFFERENTIAL, B Routine 06/09/2024 9:04 AM FUN HOUSE OPERATOR Leukocytosis HLA-B27, B Routine 06/09/2024 9:04 AM FUN HOUSE OPERATOR Pain In Joint CYCLIC CITRULLINATED PEPTIDE ABS, IGG, S Routine 06/09/2024 9:04 AM FUN HOUSE OPERATOR Pain In Joint RHEUMATOID FACTOR, S/P Routine 06/09/2024 9:04 AM FUN HOUSE OPERATOR Pain In Joint SEDIMENTATION RATE, B Routine 06/09/2024 9:04 AM FUN HOUSE OPERATOR Pain In Joint ANTINUCLEAR ABS (PAU), S Routine 06/09/2024 9:04 AM FUN HOUSE OPERATOR Pain In Joint LIPID PANEL, S Routine 09/16/2015 11:30 AM CDT from Last 3 Months or Most Recently Relevant to Health Maintenance Results * Sedimentation Rate (08/28/2024 10:03 AM CDT) Only the most recent of3 resultswithin the time period is included. Sedimentation Rate, B 14 0 - 29 mm/1 h 08/28/2024 3:26 PM CDT AUST Blood (Blood, Venous) 08/28/2024 10:03 AM CDT 08/28/2024 2:52 PM CDT us Lynn Jacobs M.D. LAB BLOOD ADD-ON Final Resul t [facility] [address] [place] [address], [place] AUST [facility] [address] [place] [address] * (ABNORMAL) CBC with Differential, Blood (08/28/2024 10:03 AM CDT) Only the most recent of3 resultswithin the time period is included. Hemoglobin 13.8 11.6 - 15.0 g/dL 08/28/2024 [...] 10:03 AM CDT 08/28/2024 10:04 AM CDT Lynn Jacobs M.D. LAB BLOOD ADD-ON Final Resul t Performing Organization Address [facility] Co de Phone Number [facility] [address] [place] [address], [facility] [address]60 [facility] [address] [place] [address] * Chicken Serum Proteins, IgE (08/04/2024 10:44 AM CDT) Pathologist [facility] Chicken Serum Proteins, IgE <0.10 <0.70 kU/L 08/07/2024 6:28 PM CDT [facility] Comment: Class 0 (Negative <0.10) ----ADDITIONAL INFORMATION---- This test was developed and its performance characteristics determined by [facility] in a manner consistent with CLIA requirements. This test has not been cleared or approved by the U.S. Food and Drug Administration. Blood (Blood, Venous) 08/04/2024 10:44 AM CDT 08/07/2024 2:24 PM CDT Result [facility] Reed Schmid M.D. LAB BLOOD ADD-ON Final Resu lt Performing Organization Address City/[facility] Co de Phone Number [facility] [address] [place] [address] [facility] [address] [place] [address] * Selah Feathers, IgE (08/04/2024 10:44 AM CDT) Selah Feathers, IgE <0.10 <0.70 kU/L 08/07/2024 6:16 PM CDT [facility] Comment:Class 0 (Negative <0 .10) Blood (Blood, Venous) 08/04/2024 10:44 AM CDT 08/07/2024 2:24 PM CDT Reed Schmid M.D. LAB BLOOD ADD-ON Final Resu lt Performing Organization Address [facility] Co de Phone Number [facility] [address] [place] [address] [facility] [address] [place] [address] * Mouse Serum Protein, IgE (08/04/2024 10:44 AM CDT) Mouse Serum Protein, IgE <0.10 <0.70 kU/L 08/07/2024 6:17 PM CDT [facility] Comment:Class 0 (Negative <0 .10) Blood (Blood, Venous) 08/04/2024 10:44 AM CDT 08/07/2024 2:24 PM CDT Reed Schmid M.D. LAB BLOOD ADD-ON Final Resu lt Performing Organization Address [facility] de Phone Number [place] [address] [place] [address] [place] [address] * Chicken Droppings, IgE (08/04/2024 10:44 AM CDT) Chicken Droppings, IgE <0.10 <0.70 kU/L 08/07/2024 6:27 PM CDT [facility] Comment: Class 0 (Negative <0.10) ----ADDITIONAL INFORMATION---- This test was developed and its performance characteristics determined by [facility] in a manner consistent with CLIA requirements. This test has not been cleared or approved by the U.S. Food and Drug Administration. Blood (Blood, Venous) 08/04/2024 10:44 AM CDT 08/07/2024 2:24 PM CDT Reed Schmid M.D. LAB BLOOD ADD-ON Final Resu lt Performing Organization Address [facility] Co de Phone Number [facility] [address] [place] [address] [place] [address] * Mouse Epithelium, IgE (08/04/2024 10:44 AM CDT) Mouse Epithelium, IgE <0.10 <0.70 kU/L 08/07/2024 6:16 PM CDT [facility] Comment:Class 0 (Negative <0 .10) Blood (Blood, Venous) 08/04/2024 10:44 AM CDT 08/07/2024 2:24 PM CDT Reed Schmid M.D. LAB BLOOD ADD-ON Final Resu lt Performing Organization Address City/[facility] Co de Phone Number [facility] [address] [place] [address] [facility] [address] [place] [address] * Chicken Feathers, IgE (08/04/2024 10:44 AM CDT) Pathologist [facility] Chicken Feathers, IgE <0.10 <0.70 kU/L 08/07/2024 6:16 PM CDT [facility] Comment:Class 0 (Negative <0 .10) Blood (Blood, Venous) 08/04/2024 10:44 AM CDT 08/07/2024 2:24 PM CDT Reed Schmid M.D. LAB BLOOD ADD-ON Final Resu lt Performing Organization Address City/[facility]/ZIP Co de Phone Number [facility] [address] [place] [address] [facility] [address] [place] [address] * Mouse Urine Protein, IgE (08/04/2024 10:44 AM CDT) Mouse Urine Protein, IgE <0.10 <0.70 kU/L 08/07/2024 6:17 PM CDT [facility] Comment:Class 0 (Negative <0 .10) Blood (Blood, Venous) 08/04/2024 10:44 AM CDT 08/07/2024 2:24 PM CDT Reed Schmid M.D. LAB BLOOD ADD-ON Final Resu lt Performing Organization Address City/[facility]/ZIP Co de Phone Number [facility] [address] [place] [address] [facility] [address] [place] [address] * Immunoglobulin E (IgE) (08/04/2024 10:44 AM CDT) Immunoglobulin E (IgE), S 76.2 <=214 kU/L 08/07/2024 6:17 PM CDT [facility] Blood (Blood, Venous) 08/04/2024 10:44 AM CDT 08/07/2024 2:24 PM CDT Reed Schmid M.D. LAB BLOOD ADD-ON Final Resu lt Performing Organization Address City/[facility] Co de Phone Number [facility] [address] [place] [address] [facility] [address] [place] [address] * Northern Skin Test (08/04/2024 9:30 AM CDT) Narrative MMODAL - 08/04/2024 9:30 AM CDT Katherine Cha R.N. 08/04/2024 10:55 AM Panel Skin Tests Flowsheet Row Clinical Support from 08/04/2024 in Department of Allergy in [place], [place] Controls Histamine (15 min W/F) 9x9w/f Glycerine (15 min W/F) 0 [facility] Panel Colony, White: 0 Tacho, White: 0 Birch: 0 Arrington, Red: 0 Lyburn, Eastern: 0 East Orland: 0 Cresco: 0 [place], Shagbark: 0 Maple: 0 Shorewood, White: 0 [place], Black: 0 Roundhill: 0 Lex[place], White: 0 Keota: 0 Davis, Vatican Citizen: 0 Pembroke, Black: 0 Boyle: 0 Bermuda: 7x7f Kentucky Blue: 0 Orchard: 0 Quack: 7x7f Red Verdon: 0 Franco: 0 Cocklebur: 0 Kochia: 0 James's Quarters: 0 Steele Elder, Burweed: 0 Mugwort, Common: 0 Nettle: 0 Plantain, Wolof: 0 Rough Pigweed: 0 Estonian Thistle: 0 Short Ragweed: 0 Privateer, Sheep Red: 0 Cat Hair: 0 Cattle [...] M.D. PROCEDURE/MINOR SURGICAL OR DERABLES Final Result [facility] NA * Basic Skin Test (08/04/2024 9:30 AM CDT) Narrative MMODAL - 08/04/2024 9:30 AM CDT Katherine Cah R.N. 08/04/2024 10:55 AM Panel Skin Tests Flowsheet Row Clinical Support from 08/04/2024 in Department of Allergy in [place], [place] Controls Histamine (15 min W/F) 9x9w/f Glycerine (15 min W/F) 0 [facility] Adriana, White: 0 Tacho, White: 0 Birch: 0 Arrington, Red: 0 Lyburn, Eastern: 0 East Orland: 0 Cresco: 0 Farmdale, Shagbark: 0 Maple: 0 Shorewood, White: 0 Sp[place], Black: 0 Roundhill: 0 Lex[place], White: 0 Keota: 0 Davis, Vatican Citizen: 0 P[place], Black: 0 Boyle: 0 Bermuda: 7x7f Kentucky Blue: 0 Orchard: 0 Quack: 7x7f Red Verdon: 0 Franco: 0 Cocklebur: 0 Kochia: 0 James's Quarters: 0 Steele Elder, Burweed: 0 Mugwort, Common: 0 Nettle: 0 Plantain, Wolof: 0 Rough Pigweed: 0 Estonian Thistle: 0 Short Ragweed: 0 Privateer, Sheep Red: 0 Cat Hair: 0 Cattle [...] NA * HOLTER MONITOR - IN CLINIC IRIDOLOGIST (07/06/2024 2:29 PM FUN HOUSE OPERATOR) Min Heart Rate 58 bpm INFOB IONIC [...] Duration 0 duration INFOBION IC MOME AF [place] 0 percent INFOBIONIC MOME Symptom Count 9 count INFOBI ONIC MOME 07/05/2024 2:31 PM FUN HOUSE OPERATOR Narrative INFOBIONIC MOME - 07/07/2024 3:29 PM FUN HOUSE OPERATOR 1. The basic rhythm was sinus with [...] to 98 bpm. No ectopy was noted. [place] Artist: MARY Lloyd/MARY Zamora Procedure Note [place] [...] 81 to 98 bpm. No ectopy wasnoted. [place]azier Artist: MARY Lloyd/MARY Zamora Babar Jc M.D. CV CARDIAC SERVICES PRO CEDURES Final Result INFOBIONIC [facility] NA * Home Overnight Oximetry (07/05/2024) 07/05/2024 [place] ZUHAIR ENNIS - 07/07/2024 4:09 PM FUN HOUSE OPERATOR This is an overnight oximetry performed on [...] with the patient is necessary. Please note [place] Sleepiness Scale score of 20 indicative of excessive daytime drowsiness. Physician: Roger Whitten M.D. [id number] Narrative Procedure Note Roger Whitten M.D., Ph.D. [...] with the patient is necessary. Please note [place] Sleepiness Scale score of 20 indicative ofexcessive daytime drowsiness. Physician: Roger Whitten M.D. [id number] us Krishan Triana PFT ORDERABLES Final Resu lt [facility] EA * (ABNORMAL) Arterial Blood Gas - Rest (07/03/2024 12:23 PM FUN HOUSE OPERATOR) Sample Site Right Radial Single Stick 07/03/2024 12:44 PM FUN HOUSE OPERATOR DTL Patient Position Sit 07/03/19 12:44 PM FUN HOUSE OPERATOR DTL Patient Activity Rest 07/03/19 12:44 PM FUN HOUSE OPERATOR DTL FIO2 21.00 21%=AIR % 07/03/2024 12:44 PM FUN HOUSE OPERATOR DTL pH Arterial 7.46(H) 7.35 - 7.45 07/03/2024 12:44 PM FUN HOUSE OPERATOR DTL pCO2 Arterial 36.7 35.0 - 45.0 mm Hg 07/03/2024 12:44 PM FUN HOUSE OPERATOR DTL pO2 Arterial 94.6 80.0 - 100.0 mm Hg 07/03/2024 12:44 PM FUN HOUSE OPERATOR DTL Total Hemoglobin 12.8 11.6 - 15.0 g/dL 07/03/2024 12:44 PM FUN HOUSE OPERATOR DTL O2 Saturation 93.3(L) 94.0 - 98.0 % 07/03/2024 12:44 PM FUN HOUSE OPERATOR DTL Carboxyhemoglobin 3.9(H) 0.0 - 1.9 % 07/03/2024 12:44 PM FUN HOUSE OPERATOR DTL Methemoglobin 1.0(H) 0.0 - 0.9 % 07/03/2024 12:44 PM FUN HOUSE OPERATOR DTL Bicarbonate Conc 25.9 22.0 - 26.0 mmol/L 07/03/2024 12:44 PM FUN HOUSE OPERATOR DTL Base Excess 2.0 0.0 - 2.0 mmol/L 07/03/2024 12:44 PM FUN HOUSE OPERATOR DTL Maddox 0.00 07/03/2024 12:44 PM FUN HOUSE OPERATOR DTL Activity Time 10.0 min 07/03/2024 12:44 PM FUN HOUSE OPERATOR DTL Subcutaneous Lidocaine 0.0 mL 07/03/2024 12:44 PM FUN HOUSE OPERATOR DTL O2 Devices N/A 07/03/2024 12:44 PM FUN HOUSE OPERATOR DTL Blood (Blood, Arterial) 07/03/2024 12:23 PM FUN HOUSE OPERATOR 07/03/2024 12:43 PM FUN HOUSE OPERATOR Krishan Triana LAB BLOOD ADD-ON Final Res ult [facility] [address] [place] [address], [facility] [address] [place] [address] * Pulmonary Function Tests (07/03/2024 9:16 AM FUN HOUSE OPERATOR) Pathologist [facility] FVC 3.08 L 07/03/2024 11:23 AM FUN HOUSE OPERATOR [facility] FEV1 2.58 L 07/03/2024 11:23 AM FUN HOUSE OPERATOR [facility] FEV1/FVC 83.68 % 07/03/2024 11:23 AM FUN HOUSE OPERATOR [facility] HNX61-44% 3.10 L/s 07/03/2024 11:23 AM FUN HOUSE OPERATOR [facility] PEF PRE 7.22 L/s 07/03/2024 11:23 AM FUN HOUSE OPERATOR [facility] PIF PRE 5.59 L/s 07/03/2024 11:23 AM FUN HOUSE OPERATOR [facility] Pre FEF50/FIF50 72.31 % 11:23 AM FUN HOUSE OPERATOR [facility] FET PRE 11.86 sec 07/03/2024 11:23 AM FUN HOUSE OPERATOR [facility] DLCO 20.11 ml/(min*mm Hg) 07/03/2024 11:23 AM FUN HOUSE OPERATOR [facility] DLCOc 19.99 ml/(min*mm Hg) 07/03/2024 11:23 AM FUN HOUSE OPERATOR [facility] HB 13.60 g(Hb)/dL 07/03/2024 11:23 AM FUN HOUSE OPERATOR [facility] Pre % Pred VA SINGLE BREATH 3.92 L 07/03/2024 11:23 AM FUN HOUSE OPERATOR [facility] 07/03/2024 9:16 AM FUN HOUSE OPERATOR Impressions [facility] - 07/03/2024 11:23 AM FUN HOUSE OPERATOR Within normal limits. Since 11/22/2023 there has been no significant change. Narrative Procedure Note Roger Whitten M.D., Ph.D. - 07/03/2024 IMPRESSION: Within normal limits. Since 11/22/2023 there has been no significantchange. us Krishan Triana PFT ORDERABLES Final Resu lt [facility] NA * (ABNORMAL) Dipstick, Urine (07/03/2024 8:48 AM FUN HOUSE OPERATOR) Hemoglobin, QL, U Moderate(A) Negative 07/03/2024 9:57 AM FUN HOUSE OPERATOR DTL Leukocyte Esterase, U Negative Negative 07/03/2024 9:57 AM FUN HOUSE OPERATOR DTL Nitrite, U Negative Negative 07/03/2024 9:57 AM FUN HOUSE OPERATOR DTL Ketone, U Negative Negative mg/dL 07/03/2024 9:57 AM FUN HOUSE OPERATOR DTL Glucose, U Negative Negative mg/dL 07/03/2024 9:57 AM FUN HOUSE OPERATOR DTL Urine 07/03/2024 8:48 AM FUN HOUSE OPERATOR 07/03/2024 9:18 AM FUN HOUSE OPERATOR Krishan Shankar.B.S. LAB URINE ORDERABLES Final Result Performing Organization Address City/[facility]/ZIP Co de Phone Number [facility] [address] [facility] [address] [place] [address] * (ABNORMAL) Microscopic Automated (07/03/2024 8:48 AM FUN HOUSE OPERATOR) Microscopy Abnormal 07/03/2024 9:57 AM FUN HOUSE OPERATOR DTL RBC 3-10(A) <3 /hpf 07/03/2024 9:57 AM FUN HOUSE OPERATOR DTL Dysmorphic RBC <25 <25 % 07/03/2024 9:57 AM FUN HOUSE OPERATOR DTL WBC 1-3 /hpf 07/03/2024 9:57 AM FUN HOUSE OPERATOR DTL Comment: ----REFERENCE VALUE---- <4 (Males) <11 (Females) Squamous Epithelial Cells, U 1-3 /hpf 07/03/2024 9:57 AM FUN HOUSE OPERATOR DTL Urine 07/03/2024 8:48 AM FUN HOUSE OPERATOR 07/03/2024 9:18 AM FUN HOUSE OPERATOR [employer] Newsletter Wojciech PorrasB.B.S. LAB URINE ORDERABLES Final Result Performing Organization Address City/[facility]/ZIP Co de Phone Number [facility] [address] [place] [address], [facility] [address] [place] [address] * pH, Urine (07/03/2024 8:48 AM FUN HOUSE OPERATOR) pH, U 5.5 4.5 - 8.0 07/03/2024 10: 23 AM FUN HOUSE OPERATOR DTL Urine 07/03/2024 8:48 AM FUN HOUSE OPERATOR 07/03/2024 9:18 AM FUN HOUSE OPERATOR Krishan Her.B.B.S. LAB URINE ORDERABLES Final Result Performing Organization Address City/[facility]/ZIP Co de Phone Number [facility] [address] [place] [address], [facility] [address] [place] [address] * Osmolality, Urine (07/03/2024 8:48 AM FUN HOUSE OPERATOR) Osmolality, U 936 150 - 1150 mOsm/kg 07/03/2024 10:23 AM FUN HOUSE OPERATOR DTL Urine 07/03/2024 8:48 AM FUN HOUSE OPERATOR 07/03/2024 9:18 AM FUN HOUSE OPERATOR Krishan Wojciech Her.B.B.S. LAB URINE ORDERABLES Final Result Performing Organization Address [facility] Co de Phone Number [facility] [address] [place] [address], [facility] [address] [place] [address] * Urinalysis, with Microscopic: Urine, Midstream (07/03/2024 8:48 AM FUN HOUSE OPERATOR) Source Urine, Urine, Midstream 07/03/2024 9:17 AM FUN HOUSE OPERATOR DTL Color, U Yellow 07/03/2024 9:18 AM FUN HOUSE OPERATOR DTL Clarity, U Clear 07/03/2024 9:18 AM FUN HOUSE OPERATOR DTL Protein, U 11 <26 mg/dL 07/03/2024 10:05 AM FUN HOUSE OPERATOR DTL Protein/Osmol ality 0.12 <0.42 ratio 07/03/2024 10:23 AM FUN HOUSE OPERATOR DTL Predicted 24 HR Protein, U 96 <229 mg/24 h 07/03/2024 10:23 AM FUN HOUSE OPERATOR DTL Predicted Range 24-388 mg/24 h 07/03/2024 10:23 AM FUN HOUSE OPERATOR DTL Urine (Urine, Midstream) 07/03/2024 8:48 AM FUN HOUSE OPERATOR 07/03/2024 9:17 AM FUN HOUSE OPERATOR Krishan JuarezB.SJair LAB URINE ORDERABLES Final Result Performing Organization Address [facility]/ZIP Co de Phone Number [facility] [address] [place] [address] * (ABNORMAL) CRP (C-Reactive Protein) (07/03/2024 8:44 AM FUN HOUSE OPERATOR) C-Reactive Protein (CRP), S 9.5(H) <5.0 mg/L 07/03/2024 9:26 AM FUN HOUSE OPERATOR DTL Blood (Blood, Venous) 07/03/2024 8:44 AM FUN HOUSE OPERATOR 07/03/2024 9:10 AM FUN HOUSE OPERATOR Krishan JuarezB.S. LAB BLOOD ADD-ON Final Res ult Performing Organization Address City/[facility]/ZIP Co de Phone Number [facility] [address] [place] [address], [facility] [address] [place] [address] * Basic Metabolic Panel (07/03/2024 8:44 AM FUN HOUSE OPERATOR) Potassium, S 4.6 3.6 - 5.2 mmol/L 07/03/2024 9:26 AM FUN HOUSE OPERATOR DTL Sodium, S 139 135 - 145 mmol/L 07/03/2024 9:26 AM FUN HOUSE OPERATOR DTL Chloride, S 103 98 - 107 mmol/L 07/03/2024 9:26 AM FUN HOUSE OPERATOR DTL Bicarbonate, S 26 22 - 29 mmol/L 07/03/2024 9:26 AM FUN HOUSE OPERATOR DTL Anion Gap 10 7 - 15 07/03/2024 9:26 AM FUN HOUSE OPERATOR DTL BUN (Blood Urea Nitrogen), S 17 6 - 21 mg/dL 07/03/2024 9:26 AM FUN HOUSE OPERATOR DTL Creatinine 0.67 0.59 - 1.04 mg/dL 07/03/2024 9:26 AM FUN HOUSE OPERATOR DTL Estimated GFR (eGFR) >90 >=60 mL/min/BSA 07/03/2024 9:26 AM FUN HOUSE OPERATOR DTL Comment: Estimated GFR calculated using the 2020 CKD_EPI creatinine equation. Calcium, Total, S 9.6 8.6 - 10.0 mg/dL 07/03/2024 9:26 AM FUN HOUSE OPERATOR DTL Glucose, S 116 70 - 140 mg/dL 07/03/2024 9:26 AM FUN HOUSE OPERATOR DTL Blood (Blood, Venous) 07/03/2024 8:44 AM FUN HOUSE OPERATOR 07/03/2024 9:10 AM FUN HOUSE OPERATOR us Krishan Triana LAB BLOOD ADD-ON Final Res ult [facility] [address] [place] [address], [facility] DTL [facility] [address] [place] [address] * CT Chest without IV Contrast (07/03/2024 8:14 AM FUN HOUSE OPERATOR) Anatomical Region Laterality Modality Chest, Thoracic RST LOS, Tho racic ARZ LOS, Thoracic FLA LOS N/A Computed Tomography, Compute d Tomography Impressions 07/03/2024 8:34 AM FUN HOUSE OPERATOR 1. No significant change since 04/14/2024. Similar clustered nodules in the right middle lobe, and small lung nodules elsewhere. 2. Diffuse air trapping, consistent with small airways disease. 3. Hepatic steatosis. Narrative 07/03/2024 8:34 AM FUN HOUSE OPERATOR EXAM: CT CHEST WITHOUT IV CONTRAST COMPARISON: [...] airways disease. 3. Hepatic steatosis. Krishan Triana IMG CT PROCEDURES Final Re sult * HLA B27 Associated Antigen Screening (06/09/2024 9:04 AM FUN HOUSE OPERATOR) HLA-B27 Result Negative Not Applicable 06/11/2024 8:39 AM FUN HOUSE OPERATOR DBB8 Comment: A portion of the testing process was performed at [facility] site [id number] HLA-B27 Interpretation see below 06/11/2024 8:39 AM FUN HOUSE OPERATOR DBB8 Comment: HLA-B27 antigen was not detected. ----ADDITIONAL INFORMATION---- Method: Flow Cytometry CLIA: [id number] CLIA Painter Rough: LONG STERLING,Ph.D. Blood (Blood, Venous) 06/09/2024 9:04 AM FUN HOUSE OPERATOR 06/10/2024 8:04 AM FUN HOUSE OPERATOR us Lynn Jacobs M.D. LAB BLOOD NON ADD-ON Final R esult [facility] [address] [place] [address], [facility] DBB8 [facility] [address] [place] [address] * Cyclic Citrullinated Peptide Antibodies, IgG (06/09/2024 9:04 AM FUN HOUSE OPERATOR) Pathologist [facility] Cyclic Citrullinated Peptide Ab, S <15.6 <20.0 (Negative) U 06/10/2024 12:30 PM FUN HOUSE OPERATOR [facility] Comment: Interpretation: Antibodies to CCP not detected. If clinical symptoms are strongly indicative for rheumatoid arthritis, suggest testing for Rheumatoid Factor, S (RHUT) and, if positive, Rheumatoid Factor Panel, S (RFPN), which includes differentiation of rheumatoid factor IgM and IgA isotypes. Blood (Blood, Venous) 06/09/2024 9:04 AM FUN HOUSE OPERATOR 06/10/2024 7:13 AM FUN HOUSE OPERATOR us Lynn Jacobs M.D. LAB BLOOD ADD-ON Final Resul t Performing Organization Address City/[facility]/ZIP Co de Phone Number [facility] [address] [place] [address] [facility] [address] [place] [address] * Rheumatoid Factor (06/09/2024 9:04 AM FUN HOUSE OPERATOR) Pathologist [facility] Rheumatoid Factor, S <10 <15 IU/mL 06/09/2024 3:59 PM FUN HOUSE OPERATOR [facility] Blood (Blood, Venous) 06/09/2024 9:04 AM FUN HOUSE OPERATOR 06/09/2024 3:27 PM FUN HOUSE OPERATOR us Lynn Jacobs M.D. LAB BLOOD ADD-ON Final Resul t [facility] [address] [place] [address], [place] AUST [facility] [address] [place] [address] * PAU (Antinuclear Antibodies) (06/09/2024 9:04 AM FUN HOUSE OPERATOR) Antinuclear Ab, S 0.4 <=1.0 (Negative) U 06/10/2024 2:21 PM FUN HOUSE OPERATOR [facility] Comment: ----ADDITIONAL INFORMATION---- Method: Enzyme-linked immunoassay using HEp-2 nuclear extract supplemented with purified antigens. Blood (Blood, Venous) 06/09/2024 9:04 AM FUN HOUSE OPERATOR 06/10/2024 7:14 AM FUN HOUSE OPERATOR us Lynn Jacobs M.D. LAB BLOOD ADD-ON Final Resul t [facility] [address] [place] [address] [facility] [address] [place] [address] * (ABNORMAL) Lipid Panel (09/16/2015 11:30 AM CDT) Pathologist [facility] Calculated LDL 104 <=129 MGDL POWERCHART Comment: [...] for FH and FDB is available through [employer]: FH/ADH Genetic Reflex Panel (test ADHP). Acquired (non-genetic) causes of markedly increased LDL cholesterol include cholestatic liver disease due to the presence of LpX. If a genetic form of hypercholesterolemia is suspected, family studies including biochemical testing for lipids (total cholesterol,triglycerides, LDL cholesterol and HDL cholesterol) are recommended. Please contact the laboratory at or the on-line test catalog at [employer] for information about how to order these [...] to Health Maintenance Insurance MEDICARE Care Teams Physician Extender Relationship Specialty Start Date End Date Lynn Jacobs M.D. [address] [place] [address] Marimar SingletaryLehighGEORGE pratt [phone] PCP - General Family Medicine 04/03/24
--- OUTSIDE RECORDS SUMMARY | 2024-08-29 04:23 | XMS_ITS | Encounter Summary ---
Author Organization [facility] Address [address] [place] [address] Care Team Providers Care Industrial Spray Painter Name Role Phone Lynn Jacobs M.D. Primary Care Provider [phone] Encounter Details Date Type Department Care Team (Latest Contact Info) Description 08/28/2024 9:45 AM CDT - 08/28/2024 11:59 PM CDT Hospital Encounter Department of Laboratory Medicine in [place], [place] [address] [place] [address] Lynn Jacobs M.D. [address] [place] [phone] Headache Unspecified Discharge Disposition: Home or Self Care Social History Tobacco Use Types Packs/Day Years Used Date Smoking Tobacco: Never Smokeless Tobacco: Never Alcohol Use Standard Drinks/Week Comments No 0 (1 standard drink = 0.6 oz pur e alcohol) [facility] Utilities Answer Date Recorded In the past 12 months has [employer], oil, or water [employer] threatened to shut off services in your [...] How often do you attend chur or adventist services? 1 to 4 times per year 07/01/2019 Do you belong to any clubs o r organizations such as mosque groups, unions, fraternal or athletic groups, or [...] [facility] - Occupational [...] Sex Assigned at Female 06/28/2023 7:21 PM ENDO TECH Legal Sex Female 2:56 PM ENDO TECH Gender Identity Female 07/01/2019 7:57 PM ENDO TECH Sexual Orientation Straight 07/01/2019 7: 57 PM ENDO TECH documented as of this encounter Medications at [...] total) by mouth daily. 90 tablet 3 08/28/2024 levalbuterol (Xopenex HFA) 45 mcg/actuation inhaler Inhale [...] and evening meals. 180 capsule 2 05/22/2024 predniSONE (Deltasone) 20 mg tablet Take 3 tablets (60 mg total) by mouth daily. 30 tablet 08/28/2024 tacrolimus (Protopic) 0.1 % ointment Apply 1 Application topically 2 (two) times a day. Apply to affected areas on eyebrows and eyelash line. 30 g 3 06/22/2024 documented as of this encounter Plan of Treatment Upcoming Encounters Date Type Department Care Team (Latest Contact Info) Description 09/07/2024 3:45 PM CDT Office Visit Department of Otorhinolaryngology in [place], [place] [address] [place] [phone] Julieta Brice M.D. [address] [place] [address] 09/22/2024 10:00 AM CDT Appointment Department of Cardiovascular Diseases in [place], [place] [address] [place] [address] Yanick Cartwright, VEHICLE DISMANTLER, C.N.P. [address] [place] [address] Discharge Disposition: Home or Self Care 09/22/2024 11:20 AM CDT Appointment Department of Laboratory Medicine in [place], [place] [address] [place] [phone] Yanick Cartwright APRN, C.N.P. [address], [place] [address] 10/06/2024 7:30 AM CDT Clinical Communication Virtual Review in [place], [place] [address] [place] [address] 10/11/2024 2:50 PM CDT Comprehensive Visit Division of Gastroenterology in [place], [place] [address] [place] [phone] Krishan Jeffrey M.B.B.S. [address] [place] [phone] 12/04/2024 2:00 PM CDT Office Visit Department of Family Medicine, [facility], in [place], [place] [address] [place] [phone] Wendy Robles APRN, C.N.P. [address], [place] [phone] documented as of this encounter Procedures Procedure Name Priority Date/Time Associated Diagnosis Comments SEDIMENTATION RATE, B Routine 08/28/2024 10:03 AM CDT Headache Unspecified CBC WITH DIFFERENTIAL, B Routine 08/28/2024 10:03 AM CDT Headache Unspecified documented in this encounter Results * (ABNORMAL) CBC with [...] M.D. LAB BLOOD ADD-ON Final Resul t [facility] [address] [place] [address], [facility] [id number] [facility] [place] [address] [place] [address] * Sedimentation Rate (08/28/2024 10:03 AM CDT) [facility] Sedimentation Rate, B 14 0 - 29 mm/1 h 08/28/2024 3:26 PM CDT [facility] Blood (Blood, Venous) 08/28/2024 10:03 AM CDT 08/28/2024 2:52 PM CDT Lynn Jacobs M.D. LAB BLOOD ADD-ON Final Resul t [facility] [address] [place] [address], [facility] AUST [facility] [address] [place] [address] documented in this encounter Visit Diagnoses Diagnosis Headache Unspecified documented in this encounter Additional Health Concerns Assessment Noted Time PHQ-9 Depression Total Score: 10 025 11:16 AM ENDO TECH documented as of this encounter Care Teams Industrial Spray Painter Relationship Specialty Start Date End Date Lynn Jacobs M.D. [address] [place] [phone] PCP - General Family Medicine 04/03/24 documented as of this encounter
[2024-08-29 04:24] VITALS: BP 171/122; PULSE 113; RESP 16; TEMP 36.5; O2SAT 96; BMI 27.3
--- NOTE | 2024-08-29 04:34 | ED_ITS ---
HPI - General Adult General Chief complaint: Back Injury/Pain Stated complaint: Leg/back pain, high BP Time Seen by Provider: 08/29/24 04:34 History of Present Illness HPI narrative: patient has been having symptoms for the past 3 weeks of headache, and feeling weaker on the R side of her body. patient has been seen by her PCP and in the ER and states they did not find a stroke but to follow up with any new symptoms. tonight she has been having severe lower back pain that came on suddenly and seems to spread to her legs when she walks and her BP at home elevated 173/114 on her home cuff. has hx of elevated BP and stated on HCTZ 25mg recently. 34-year-old woman presenting to the emergency department abrupt onset of worsening back pain and then continued headache and concern of high blood pressure. Seen 4 days ago in this department with suspected migraine. Had extensive imaging due to initial concern of stroke. Facial paresthesia was part of presentation. Describes a pulsing sensation. Has some headache around the right eye area. Feels funny in this area. History of migraines and muscular tension. No eye watering. She does note chronic rhinorrhea secondary to allergies. Hydrochlorothiazide was started yesterday in primary care visit. Later muses that has been feeling more anxious lately and wondering if that might be contributing. Mentions also that it sounds like there is some question of what sounds like temporal arteritis being worked up and pending potential biopsy. She says that she has not been scheduled yet for that appointment or is waiting callback. She asks whether not her back pain could be related. Does have a ?clingy? 3-year-old and a 4-year-old as well as an older I believe maybe a 7 or 8-year-old at home. Back pain intensified rather abruptly. She describes it symmetrically into her hip area. Does not appear to extend beyond her upper legs. No trauma. Related Data Home Medications ?Medication ?Instructions ?Recorded ?Confirmed ibuprofen PO 01/16/24 01/31/24 tacrolimus 0.1 % topical ointment 1 applic topical BID 08/14/24 08/14/24 hydrochlorothiazide 25 mg tablet 25 mg PO DAILY 08/29/24 08/29/24 Previous Rx's ?Medication ?Instructions ?Recorded ketorolac 10 mg tablet 10 mg PO Q6H PRN pain #5 tabs 08/14/24 Allergies Allergy/AdvReac Type Severity Reaction Status Date / Time Penicillins Allergy Mild Rash Verified 08/14/24 18:07 sulfamethoxazole (From Allergy Mild Rash Verified 08/14/24 18:07 Sulfamethoxazole-Trimethoprim) trimethoprim (From Allergy Mild Rash Verified 08/14/24 18:07 Sulfamethoxazole-Trimethoprim) latex Allergy Unknown uncertain, Verified 08/14/24 18:07 had a reaction to a balloon once, not since Review of Systems Status of ROS: Reports: 6 or more systems reviewed and unremarkable except as noted in History and below [facility] Medical History Hx of hematuria ?Z87.448 - Personal history of other diseases of urinary system (ICD-10) Scoliosis of lumbar spine ?M41.9 - Scoliosis, unspecified (ICD-10) Positive PAU (antinuclear antibody) ?R76.8 - Other specified abnormal immunological findings in serum (ICD-10) Polycystic ovary syndrome ?E28.2 - Polycystic ovarian syndrome (ICD-10) History of fatty infiltration of liver ?Z87.19 - Personal history of other diseases of the digestive system (ICD-10) Environmental allergies ?Z91.09 - Other allergy status, other than to drugs and biological substances (ICD-10) Essential hypertension ?I10 - Essential (primary) hypertension (ICD-10) Hearing impaired ?H91.90 - Unspecified hearing loss, unspecified ear (ICD-10) Hyperlipidemia ?E78.5 - Hyperlipidemia, unspecified (ICD-10) Asthma ?J45.909 - Unspecified asthma, uncomplicated (ICD-10) Depression ?F32.A - Depression, unspecified (ICD-10) History of delivery, currently ?O09.899 - Supervision of other high risk pregnancies, unspecified trimester (ICD-10) Surgical History Hx of cystoscopy ?Z98.890 - Other specified postprocedural states (ICD-10) History of colposcopy ?Z98.890 - Other specified postprocedural states (ICD-10) Hx of cholecystectomy ?Z90.49 - Acquired absence of other specified parts of digestive tract (ICD- 10) History of bunionectomy ?Z98.890 - Other specified postprocedural states (ICD-10) Hx of hernia repair ?Z98.890 - Other specified postprocedural states (ICD-10) ?Z87.19 - Personal history of other diseases of the digestive system (ICD-10) Family History Other Cancer High blood pressure Multiple sclerosis Social History What is your current living situation?: I presently have a place to live Problems where you live: pests, such as bugs, ants, or mice and carbon monoxide detectors missing or not working In the past 12 months, utilities in danger of being shut off: no In past 12 months, lack of transportation kept you from medical appts, meetings, work, or getting things needed for daily living: no In the past 12 mos, have been you worried that your food would run out before you had money to buy more?: never true In the past 12 mos, the food you bought just didn't last and you didn't have money to buy more?: never true Second hand tobacco smoke exposure: No How often does anyone, including family, friends and others, physically hurt you : never How often does anyone, including family, friends and others, insult or talk down to you: fairly often How often does anyone, including family, friends and others, threaten you with harm: never How often does anyone, including family, friends and others, scream or curse at you: never Health Related Social Needs: Inadequate housing (Z59.1) and Other personal risk factors, not elsewhere classified (Z91.89) Exam Narrative: Exam Narrative: Pleasant. NAD. Extremely tense trapezial paracervical and back musculature right greater than left. Right greater than left SI joint pain as well. Neck is supple. Cranial nerves 2-12 intact. Pupils are equal briskly reactive. Breathing easily. Heart in on the elevated rate regular rhythm. Pressure noted on arrival is elevated. Well-perfused peripherally. Moving all extremities without difficulty. Without peripheral edema. Negative straight leg raise. Transitions a little gingerly. Const: Vital Signs, click to edit/add: Vital Signs - 24 hr 08/29/24 04:24 08/29/24 06:51 08/29/24 06:58 Temperature 97.7 F Pulse Rate [Pulse Oximeter] 113 H 101 H Respiratory Rate 16 16 Blood Pressure [Ri ght Upper Arm] 171/122 H 155/116 H Pulse Oximetry 96 93 94 Oxygen Delivery Me thod Room Air Room Air Documenting provider has reviewed patient's vital signs: yes Course Vital Signs Vital signs: Initial Vital Signs Temperature 97.7 F 08/29/24 04:24 Temperature Source Temporal Artery Scan 08/29/24 04:24 Pulse Rate 113 H 08/29/24 04:24 Respiratory Rate 16 08/29/24 04:24 Blood Pressure 171/122 H 08/29/24 04:24 Blood Pressure Mean 138 H 08/29/24 04:24 Blood Pressure Position Sitting 08/29/24 04:24 Pulse Oximetry 96 08/29/24 04:24 Oxygen Delivery Method Room Air 08/29/24 04:24 Vital Signs Temperature 97.7 F 08/29/24 04:24 Pulse Rate 113 H 08/29/24 04:24 Respiratory Rate 16 08/29/24 04:24 Blood Pressure 171/122 H 08/29/24 04:24 Pulse Oximetry 96 08/29/24 04:24 Oxygen Delivery Method Room Air 08/29/24 04:24 Temperature 97.7 F 08/29/24 04:24 Pulse Rate 101 H 08/29/24 06:51 Respiratory Rate 16 08/29/24 06:51 Blood Pressure 155/116 H 08/29/24 06:51 Pulse Oximetry 94 08/29/24 06:58 Oxygen Delivery Method Room Air 08/29/24 06:51 Medications Administered Medications: Discontinued Medications Generic Name Dose Route Start Last Admin Trade Name Freq PRN Reason Stop Dose Admin Dexamethasone 10 mg 08/29/24 05:00 08/29/24 05:42 Dexamethasone 4 Mg/Ml Vial IVP 08/29/24 05:01 10 mg ONCE ONE Administration Sodium Chloride 1,000 mls @ 1,000 mls/hr 08/29/24 05:00 08/29/24 07:00 0.9 % Sodium Chloride 1000 Ml IV 08/29/24 05:59 Infused .Q1H ONE Infusion Ketorolac Tromethamine 30 mg 08/29/24 05:00 08/29/24 05:25 Ketorolac 30 Mg/Ml Inj IVP 08/29/24 05:01 30 mg ONCE ONE Administration Lidocaine 1 patch 08/29/24 05:03 08/29/24 05:42 Lidocaine 5% Patch TRANSDERMA 08/29/24 05:04 1 patch ONCE ONE Administration Protocol Lorazepam 0.5 mg 08/29/24 05:01 08/29/24 05:41 Lorazepam 2 Mg/Ml Inj IVP 08/29/24 05:02 0.5 mg ONCE ONE Administration Medical Decision Making MDM Narrative Medical decision making narrative: Reviewed records from prior visit. Has been diagnosed with atypical migraines. A struggled with muscle tension in the past as well. I think this is exacerbated care for children at home. Would offer treatment for her headache. Has been evaluated extensively with complaints of paresthesia on the right side of her face. CT vascular imaging of head and neck was normal. Would then anticipate that blood pressure might improve a little with treatment of pain however also discussed that hydrochlorothiazide effect would not be seen after 1 day of dosing. I think back pain is a combination of underlying muscle tension related pain and sacroiliac joint pain Later review of records confirms that ESR is normal. Doubtful then with temporal arteritis. IV was placed with normal saline. Ketorolac and dexamethasone. And lidocaine patch was placed over the right SI joint. Upon reassessment was overall improved and felt a home to outpatient follow-up. Blood pressures did remain elevated but mildly improved. Would anticipate need potentially for medication like amlodipine. It is certainly difficult to have little kids and back pain. It sounds as though you are in the middle of a workup for headaches and might need to help move that process along through your primary at [place]. And to answer your question again, yes it was appropriate that you came here even if it was simply for treatment for pain. I am including some handouts for stretches/exercises for the upper back/neck and sacroiliac joint pain. I do think that you could at least do these within the restraints on activity from your primary care provider. Do also focus on staying well hydrated. Medical Records Medical records reviewed: Yes I reviewed the patient's medical records Discharge Plan Discharge Clinical Impression: Headache, Muscle tension pain, Sacroiliac joint pain Patient Disposition: Home w/ Parent or Adult Condition: Improved Additional Instructions: It is certainly difficult to have little kids and back pain. It sounds as though you are in the middle of a workup for headaches and might need to help move that process along through your primary at [place]. And to answer your question again, yes it was appropriate that you came here even if it was simply for treatment for pain. I am including some handouts for stretches/exercises for the upper back/neck and sacroiliac joint pain. I do think that you could at least do these within the restraints on activity from your primary care provider. Do also focus on staying well hydrated. Prescriptions: No Action ibuprofen PO tacrolimus 0.1 % ointment 1 applic topical BID ketorolac 10 mg tablet 10 mg PO Q6H PRN (Reason: pain) Qty: 5 0RF Rx Instructions: maximum total duration of 5 days from all oral, intranasal, or parenteral formulations hydrochlorothiazide 25 mg tablet 25 mg PO DAILY Follow Up/Referrals: Yanick Valle MD [Primary Care Provider] - Stand Alone Forms: [employer] Info Instructions
[2024-08-29] MEDS: 0.9 % SODIUM CHLORIDE 1000 ml 1,000 ML IV (05:22)
[2024-08-29] MEDS: KETOROLAC 30 MG/ML inj IVP (05:25)
--- OUTSIDE RECORDS SUMMARY | 2024-08-29 05:26 | XMS_ITS | Encounter Summary ---
Author Organization [facility] Address [address] [place] [address] Care Team Providers Care Clinical Psychologist Licensed Name Role Phone Lynn Jacobs M.D. Primary Care Provider [phone] Reason for Referral * Outpatient (Routine) - Closed Specialty Diagnoses / Procedures Referred By Contact Referred To Contact Cardiovascular Diseases / Cardiovascular Disease Diagnoses Hypertension Essential Primary Dyspnea On Exertion Krishan Jeffrey M.B.B.S. [address] [place] [address] Phone: tel: fax: [facility] Region Referral ID Status Reason Start Date Expiration Date Visits Re quested Visits Authorized [id number] Closed 07/03/2024 01/02/2026 1 1 FACILITY ENGINEER Reason for Visit * Reason Onset Date Comments Triage 07/03/2024 Davina Ballard, # [phone] Encounter Details Date Type Department Care Team (Latest Contact Info) Description 07/03/2024 Clinical Communication Department of Cardiovascular Medicine in [place], [place] [address] [place] [phone] Forensic ManagerZuhair M.D. Triage (Davina Ballard, # [phone]) Social History Tobacco Use Types Packs/Day Years Used Date Smoking Tobacco: Never Smokeless Tobacco: Never Alcohol Use Standard Drinks/Week Comments No 0 (1 standard drink = 0.6 oz pur e alcohol) [facility] Utilities Answer Date Recorded In the past 12 months has [employer], gas, oil, or water [employer] threatened to shut off services in your [...] any clubs o r organizations such as uatsdin groups, unions, fraternal or athletic groups, or [...] Date Recorded PHQ-2 Score 5 06/19/2024 [facility] - [...] Sex Assigned at Female 06/28/2023 7:21 PM TEST FACILITY ENGINEER Legal Sex Female 2:56 PM TEST FACILITY ENGINEER Gender Identity Female 07/01/2019 7:57 PM TEST FACILITY ENGINEER Sexual Orientation Straight 07/01/2019 7: 57 PM TEST FACILITY ENGINEER documented as of this encounter Plan of Treatment Upcoming Encounters Date Type Department Care Team (Latest Contact Info) Description 09/07/2024 3:45 PM CDT Office Visit Department of Otorhinolaryngology in [place], [place] [address] [place] [phone] Julieta Brcie M.D. [address] [place] [phone] 09/22/2024 10:00 AM CDT Appointment Department of Cardiovascular Diseases in [address] [phone] Yanick Cartwright APRN, C.N.P. [address] [place] [phone] Discharge Disposition: Home or Self Care 09/22/2024 11:20 AM CDT Appointment Department of Laboratory Medicine in [address] [phone] Yanick Cartwright APRN, C.N.P. [address] [phone] 10/06/2024 7:30 AM CDT Clinical Communication Virtual Review in [place], [place] 200 [place] [phone] 10/11/2024 2:50 PM CDT Comprehensive Visit Division of Gastroenterology in [place], [place] [address] [place] [phone] Krishan Jeffrey M.B.BJairS. [address] [place] [phone] 12/04/2024 2:00 PM CDT Office Visit Department of Family Medicine, [facility], in [place], [place] [address] [place] [phone] Wendy Robles APRN, C.N.P. [address], [place] [phone] Scheduled Referrals Name Type Priority Associated Diagnoses Order Schedule Cardiovascular Disease - General cardiology consult (clinic) Outpatient Referral Routine Hypertension Essential Primary Dyspnea On Exertion Expected: 07/03/2024, Expires: 09/30/2025 documented as of this encounter Visit Diagnoses Diagnosis Hypertension Essential Primary- Primary Dyspnea On Exertion documented in this encounter Additional Health Concerns Assessment Noted Time PHQ-9 Depression Total Score: 10 025 11:16 AM TEST FACILITY ENGINEER documented as of this encounter Care Teams Clinical Psychologist Licensed Relationship Specialty Start Date End Date Lynn Jacobs M.D. [address] [place] [phone] PCP - General Family Medicine 04/03/24 documented as of this encounter
--- OUTSIDE RECORDS SUMMARY | 2024-08-29 05:26 | XMS_ITS | Encounter Summary ---
Author Organization [facility] Address [address] [place] [phone] Care Team Providers Care Line Pilot Name Role Phone Lynn Jacobs M.D. 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 [address] [place] [phone] Phone: tel:[phone] fax:[phone] [facility] Referral ID Status Reason Start Date Expiration Date Visits Requested Visits Authorized [id number] Authorized Specialty Services Required 07/03/2024 01/02/2026 1 1 Scheduling Instructions GIH consult should be scheduled after all testing CEMENTER Encounter Details Date Type Department Care Team (Late st Contact Info) Description 07/03/2024 Orders Only Division of Pulmonary Medicine in [place], [place] [address] [place] [phone] Krishan Jeffrey M.B.B.S. 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 1 to 4 times per year [...] Answer Date Recorded PHQ-2 Score 5 06/19/2024 [facility] [...] living situation today? I have a [facility] place to live 06/28/2023 Education Answer Date Recorded What is the highest level of school you have completed or the highest degree you have received? GED or equivalent Comments No Sex and Gender Information Value Date Recorded Sex Assigned at Female 06/28/2023 7:21 PM FELT CEMENTER Legal Sex Female 2:56 PM FELT CEMENTER Gender Identity Female 07/01/2019 7:57 PM FELT CEMENTER Sexual Orientation Straight 07/01/2019 7: 57 PM FELT CEMENTER documented as of this encounter Plan of Treatment Upcoming Encounters Date Type Department Care Team (Latest Contact Info) Description 09/07/2024 3:45 PM CDT Office Visit Department of Otorhinolaryngology in [place], [place] [address] [place] [phone] Julieta Brice M.D. [address] [place] [phone] 09/22/2024 10:00 AM CDT Appointment Department of Cardiovascular Diseases in [address] [phone] Yanick Cartwright APRN, C.N.P. [address] [phone] Discharge Disposition: Home or Self Care 09/22/2024 11:20 AM CDT Appointment Department of Laboratory Medicine in [address] [phone] Yanick Cartwright APRN, C.N.P. [address] [phone] 10/06/2024 7:30 AM CDT Clinical Communication Virtual Review in [place], [place] 200 [place] [phone] 10/11/2024 2:50 PM CDT Comprehensive Visit Division of Gastroenterology in [address] [phone] Krishan Jeffrey M.B.BJairS. [address] [place] [phone] 12/04/2024 2:00 PM CDT Office Visit Department of Family Medicine, [facility], in [place], [place] [address] [place] [phone] Wendy Robles APRN, C.N.P. 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 Please note [place] Sleepiness Scale score of 20 indicative of excessive daytime drowsiness. Physician: Roger Whitten M.D. [id number] Narrative Procedure Note Roger Whitten M.D., Ph.D. [...] with the patient is necessary. Please note [place] Sleepiness Scale score of 20 indicative ofexcessive daytime drowsiness. Physician: Roger Whitten M.D. [id number] us Krishan Triana PFT ORDERABLES Final Resu lt FRANKS PATY NAVAS * (ABNORMAL) Arterial Blood Gas - Rest (07/03/2024 12:23 PM FELT CEMENTER) Sample Site Right Radial Single Stick 07/03/2024 12:44 PM FELT CEMENTER DTL Patient Position Sit 07/03/19 12:44 PM FELT CEMENTER DTL Patient Activity Rest 07/03/19 12:44 PM FELT CEMENTER DTL FIO2 21.00 21%=AIR % 07/03/2024 12:44 PM FELT CEMENTER DTL pH Arterial 7.46(H) 7.35 - 7.45 07/03/2024 12:44 PM FELT CEMENTER DTL pCO2 Arterial 36.7 35.0 - 45.0 mm Hg 07/03/2024 12:44 PM FELT CEMENTER DTL pO2 Arterial 94.6 80.0 - 100.0 mm Hg 07/03/2024 12:44 PM FELT CEMENTER DTL Total Hemoglobin 12.8 11.6 - 15.0 g/dL 07/03/2024 12:44 PM FELT CEMENTER DTL O2 Saturation 93.3(L) 94.0 - 98.0 % 07/03/2024 12:44 PM FELT CEMENTER DTL Carboxyhemoglobin 3.9(H) 0.0 - 1.9 % 07/03/2024 12:44 PM FELT CEMENTER DTL Methemoglobin 1.0(H) 0.0 - 0.9 % 07/03/2024 12:44 PM FELT CEMENTER DTL Bicarbonate Conc 25.9 22.0 - 26.0 mmol/L 07/03/2024 12:44 PM FELT CEMENTER DTL Base Excess 2.0 0.0 - 2.0 mmol/L 07/03/2024 12:44 PM FELT CEMENTER DTL Maddox 0.00 07/03/2024 12:44 PM FELT CEMENTER DTL Activity Time 10.0 min 07/03/2024 12:44 PM FELT CEMENTER DTL Subcutaneous Lidocaine 0.0 mL 07/03/2024 12:44 PM FELT CEMENTER DTL O2 Devices N/A 07/03/2024 12:44 PM FELT CEMENTER DTL Blood (Blood, Arterial) 07/03/2024 12:23 PM FELT CEMENTER 07/03/2024 12:43 PM FELT CEMENTER Krishan Triana LAB BLOOD ADD-ON Final Res ult [facility] [address] [place] [address], [facility] [address] [place] [address] documented in this encounter Visit Diagnoses Diagnosis Vasculitis- Primary Dizziness Dyspnea On Exertion 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 [address] [place] [phone] PCP - General Family Medicine 04/03/24 documented as of this encounter
--- OUTSIDE RECORDS SUMMARY | 2024-08-29 05:26 | XMS_ITS | Encounter Summary ---
Author Organization [facility] Address [address] [place] [address] Care Team Providers Care Daylight Driller Name Role Phone Lynn Jacobs M.D. Primary Care Provider [phone] Encounter Details Date Type Department Care Team (Latest Contact Info) Description 08/04/2024 10:37 AM CDT - 08/04/2024 11:59 PM CDT Hospital Encounter Department of Laboratory Medicine in [place], [place] [address] [place] [phone] Reed Schmid M.D. [address] [place] [phone] Rhinitis Allergic Discharge Disposition: Home or Self Care Social History Tobacco Use Types Packs/Day Years Used Date Smoking Tobacco: Never Smokeless Tobacco: Never Alcohol Use Standard Drinks/Week Comments No 0 (1 standard drink = 0.6 oz pur e alcohol) [facility] Utilities Answer Date Recorded In the past 12 months has [employer], oil, or water [employer] threatened to shut off services in your [...] How often do you attend chur or mandaen services? 1 to 4 times [...] Answer Date Recorded PHQ-2 Score 5 06/19/2024 [facility] of Occupat ional Health - Occupational Stress [...] your living situation today? I have a [facility] place to live 06/28/2023 Education Answer Date Recorded What is the highest level of school you have completed or the highest degree you have received? GED or equivalent Comments No Sex and Gender Information Value Date Recorded Sex Assigned at Female 06/28/2023 7:21 PM INCIDENT MANAGER Legal Sex Female 2:56 PM INCIDENT MANAGER Gender Identity Female 07/01/2019 7:57 PM INCIDENT MANAGER Sexual Orientation Straight 07/01/2019 7: 57 PM INCIDENT MANAGER documented as of this encounter Medications [...] CDT Office Visit Department of Otorhinolaryngology in [place], [place] [address] [place] [address] Julieta Brice M.D. [address] [place] [address] 09/22/2024 10:00 AM CDT Appointment Department of Cardiovascular Diseases in [place], [place] [address] [place] [address] Yanick Cartwright, CINTHIA, C.N.P. [address] [place] [phone] Discharge Disposition: Home or Self Care 09/22/2024 11:20 AM CDT Appointment Department of Laboratory Medicine in [place], [place] [address] [place] [address] Yanick Cartwright APRN, C.N.P. [address] [address] 10/06/2024 7:30 AM CDT Clinical Communication Virtual Review in [place], [place] [address] [place] [phone] 10/11/2024 2:50 PM CDT Comprehensive Visit Division of Gastroenterology in [place], [place] [address] [place] [phone] Krishan Jeffrey M.B.BaJirS. [address] [place] [phone] 12/04/2024 2:00 PM CDT Office Visit Department of Family Medicine, [facility], in [place], [place] [address] [address] Wenyd Robles APRN, C.N.P. [address] [address] documented as of this encounter [...] 76.2 <=214 kU/L 08/07/2024 6:17 PM CDT [facility] Blood (Blood, Venous) 08/04/2024 10:44 AM CDT 08/07/2024 2:24 PM CDT Reed Schmid M.D. LAB BLOOD ADD-ON Final Resu lt Performing Organization Address City/[facility]/ZIP Co de Phone Number [facility] [address] [place] [address] [facility] [address] [place] [address] * Mouse Urine Protein, IgE (08/04/2024 10:44 AM CDT) Pathologist [facility] Mouse Urine Protein, IgE <0.10 <0.70 kU/L 08/07/2024 6:17 PM CDT [facility] Comment:Class 0 (Negative <0 .10) Blood (Blood, Venous) 08/04/2024 10:44 AM CDT 08/07/2024 2:24 PM CDT Reed Schmid M.D. LAB BLOOD ADD-ON Final Resu lt Performing Organization Address City/[facility]/ZIP Co de Phone Number [facility] [address] [place] [address] [facility] [address] [place] [address] * Mouse Serum Protein, IgE (08/04/2024 10:44 AM CDT) [facility] Mouse Serum Protein, IgE <0.10 <0.70 kU/L 08/07/2024 6:17 PM CDT [facility] Comment:Class 0 (Negative <0 .10) Blood (Blood, Venous) 08/04/2024 10:44 AM CDT 08/07/2024 2:24 PM CDT Reed Schmid M.D. LAB BLOOD ADD-ON Final Resu lt [facility] [address] [place] [address] [facility] [address] [place] [address] * Mouse Epithelium, IgE (08/04/2024 10:44 AM CDT) [facility] Mouse Epithelium, IgE <0.10 <0.70 kU/L 08/07/2024 6:16 PM CDT [facility] Comment:Class 0 (Negative <0 .10) Blood (Blood, Venous) 08/04/2024 10:44 AM CDT 08/07/2024 2:24 PM CDT Reed Schmid M.D. LAB BLOOD ADD-ON Final Resu lt Performing Organization Address City/[facility]/ZIP Co de Phone Number [facility] [address] [place] [address] [facility] [address] [place] [address] * [place] Feathers, IgE (08/04/2024 10:44 AM CDT) [facility] Quinwood Feathers, IgE <0.10 <0.70 kU/L 08/07/2024 6:16 PM CDT [facility] Comment:Class 0 (Negative <0 .10) Blood (Blood, Venous) 08/04/2024 10:44 AM CDT 08/07/2024 2:24 PM CDT Reed Schmid M.D. LAB BLOOD ADD-ON Final Resu lt [facility] [address] [place] [address] [facility] [address] [place] [place] [address] * Chicken Serum Proteins, IgE (08/04/2024 10:44 AM CDT) [facility] Chicken Serum Proteins, IgE <0.10 <0.70 kU/L 08/07/2024 6:28 PM CDT [facility] Comment: Class 0 (Negative <0.10) ----ADDITIONAL INFORMATION---- This test was developed and its performance characteristics determined by [facility] in a manner consistent with CLIA requirements. This test has not been cleared or approved by the U.S. Food and Drug Administration. Blood (Blood, Venous) 08/04/2024 10:44 AM CDT 08/07/2024 2:24 PM CDT Reed Schmid M.D. LAB BLOOD ADD-ON Final Resu lt [facility] [address] [place] [address] [facility] [address] [place] [address] * Chicken Droppings, IgE (08/04/2024 10:44 AM CDT) [facility] Chicken Droppings, IgE <0.10 <0.70 kU/L 08/07/2024 6:27 PM CDT [facility] Comment: Class 0 (Negative <0.10) ----ADDITIONAL INFORMATION---- This test was developed and its performance characteristics determined by [facility] in a manner consistent with CLIA requirements. This test has not been cleared or approved by the U.S. Food and Drug Administration. Blood (Blood, Venous) 08/04/2024 10:44 AM CDT 08/07/2024 2:24 PM CDT Reed Schmid M.D. LAB BLOOD ADD-ON Final Resu lt Performing Organization Address City/[facility] Co de Phone Number [facility] [address] [place] [address] [facility] [address] [place] [address] * Chicken Feathers, IgE (08/04/2024 10:44 AM CDT) Chicken Feathers, IgE <0.10 <0.70 kU/L 08/07/2024 6:16 PM CDT [facility] Comment:Class 0 (Negative <0 .10) Blood (Blood, Venous) 08/04/2024 10:44 AM CDT 08/07/2024 2:24 PM CDT Reed Schmid M.D. LAB BLOOD ADD-ON Final Resu lt Performing Organization Address [facility]UST de Phone Number [facility] [address] [place] [address] [facility] [address] [place] [place] [address] documented in this encounter Visit Diagnoses Diagnosis Rhinitis Allergic documented in this encounter Additional Health Concerns Assessment Noted Time PHQ-9 Depression Total Score: 10 025 11:16 AM INCIDENT MANAGER documented as of this encounter Care Teams Daylight Driller Relationship Specialty Start Date End Date Lynn Jacobs M.D. NPLibra: [phone] [address] [place] [address] [facility] [place] [address] PCP - General Family Medicine 04/03/24 documented as of this encounter
--- OUTSIDE RECORDS SUMMARY | 2024-08-29 05:26 | XMS_ITS | Encounter Summary ---
Author Organization [facility] Address [address] [place] [address] Care Team Providers Care Community Organization Aide Name Role Phone Lynn Jacobs M.D. Primary Care Provider [phone] Encounter Details Date Type Department Care Team (Late st Contact Info) Description 08/09/2024 Results Follow-Up Department of Allergy in [place], [place] [address] [place] [phone] Reed Schmid M.D. [address] [place] [phone] Chicken Feathers, IgE, Chicken Droppings, IgE, Chicken Serum Proteins, IgE, Additional followed-up results: 5 Social History Tobacco Use Types Packs/Day Years Used Date Smoking Tobacco: Never Smokeless Tobacco: Never Alcohol Use Standard Drinks/Week Comments No 0 (1 standard drink = 0.6 oz pur e alcohol) [facility] Utilities Answer Date Recorded In the past 12 months has [facility] [employer] gas, oil, or water [employer] threatened to shut off services in your [...] How often do you attend chur or zoroastrianism services? 1 to 4 times [...] Answer Date Recorded PHQ-2 Score 5 06/19/2024 [facility] of Occupat ional Health - [...] Answer Date Recorded Employment status Unemployed/not in [employer] paid workforce and NOT seeking employment 06/28/2023 Housing Stability Answer Date Recorded What is your living situation today? I have a [facility] place to live 06/28/2023 Education Answer Date Recorded What is the highest level of school you have completed or the highest degree you have received? GED or equivalent Comments No Sex and Gender Information Value Date Recorded Sex Assigned at Female 06/28/2023 7:21 PM INDIVIDUAL SMALL GROUP INSTRUCTOR Legal Sex Female 2:56 PM INDIVIDUAL SMALL GROUP INSTRUCTOR Gender Identity Female 07/01/2019 7:57 PM INDIVIDUAL SMALL GROUP INSTRUCTOR Sexual Orientation Straight 07/01/2019 7: 57 PM INDIVIDUAL SMALL GROUP INSTRUCTOR documented as of this encounter Plan of Treatment Upcoming Encounters Date Type Department Care Team (Latest Contact Info) Description 09/07/2024 3:45 PM CDT Office Visit Department of Otorhinolaryngology in [place], [place] [address] [place] [phone] Julieta Brice M.D. [address] [place] [address] 09/22/2024 10:00 AM CDT Appointment Department of Cardiovascular Diseases in [address] [place] [phone] Yanick Cartwright APRN, C.N.P. [address] [place] [phone] Discharge Disposition: Home or Self Care 09/22/2024 11:20 AM CDT Appointment Department of Laboratory Medicine in [place], [place] [address] [place] [address] Yanick Cartwright APRN, C.N.P. [address] [phone] 10/06/2024 7:30 AM CDT Clinical Communication Virtual Review in [place], [place] [address] [place] [address] 10/11/2024 2:50 PM CDT Comprehensive Visit Division of Gastroenterology in [place], [place] [address] [place] [phone] Krishan Jeffrey M.B.BJairSJair [address] [place] [phone] 12/04/2024 2:00 PM CDT Office Visit Department of Family Medicine, [facility], in [place], [place] [address] [place] [phone] Wendy Robles APRN, C.N.P. [address] [phone] documented as of this encounter Visit Diagnoses Not on filedocumented in this encounter Additional Health Concerns Assessment Noted Time PHQ-9 Depression Total Score: 10 025 11:16 AM INDIVIDUAL SMALL GROUP INSTRUCTOR documented as of this encounter Care Teams Community Organization Aide Relationship Specialty Start Date End Date Lynn Jacobs M.D. [address] [place] [address] [place] [address] PCP - General Family Medicine 04/03/24 documented as of this encounter
--- OUTSIDE RECORDS SUMMARY | 2024-08-29 05:26 | XMS_ITS | Encounter Summary ---
Author Organization [facility] Address [address] [place] [address] Care Team Providers Care Optical Effects Line Up Person Name Role Phone Lynn Jacobs M.D. Primary Care Provider [phone] Reason for Referral * Outpatient (Routine) - Closed Specialty Diagnoses / Procedures Referred By Contac t Referred To Contact Diagnoses Rhinitis Allergic Procedures Northern Skin Test Reed Schmid M.D. [address] [place] [address] Phone: tel: fax: [facility] Region Referral ID Status Reason Start Date Expiration Date Visits Re quested Visits Authorized [id number] Closed 07/17/2024 10/17/2025 1 1 IAC TECH * Outpatient (Routine) - Closed Specialty Diagnoses / Procedures Referred By Contac t Referred To Contact Diagnoses Rhinitis Allergic Procedures Basic Skin Test Reed Schmid M.D. [address] [place] [address] Phone: tel: fax: [facility] Region Referral ID Status Reason Start Date Expiration Date Visits Re quested Visits Authorized [id number] Closed 07/17/2024 10/17/2025 1 1 IAC TECH Reason for Visit * Reason Onset Date Comments Previsit Preparation 07/14/2024 Encounter Details Date Type Department Care Team (Latest Contact Info) Description 07/14/2024 Clinical Communication Department of Allergy in [place], [place] [address] [place] [phone] Emmy Caraballo, L.P.N. Previsit Preparation Social History Tobacco Use Types Packs/Day Years Used Date Smoking Tobacco: Never Smokeless Tobacco: Never Alcohol Use Standard Drinks/Week Comments No 0 (1 standard drink = 0.6 oz pur e alcohol) [facility] Utilities Answer Date Recorded In the past 12 months has e [employer], gas, oil, or water [employer] threatened to shut off services in your [...] often do you attend chur ch or jew services? 1 to 4 times per year 07/01/2019 Do you belong to any clubs o r organizations such as protestant groups, unions, fraternal or athletic groups, or [...] Answer Date Recorded PHQ-2 Score 5 06/19/2024 [facility] of Occupat ional Health - [...] your living situation today? I have a [facility] place to live 06/28/2023 Education Answer Date Recorded What is the highest level of school you have completed or the highest degree you have received? GED or equivalent Comments No Sex and Gender Information Value Date Recorded Sex Assigned at Female 06/28/2023 7:21 PM CARDIAC TECH Legal Sex Female 2:56 PM CARDIAC TECH Gender Identity Female 07/01/2019 7:57 PM CARDIAC TECH Sexual Orientation Straight 07/01/2019 7: 57 PM CARDIAC TECH documented as of this encounter Plan of Treatment Upcoming Encounters Date Type Department Care Team (Latest Contact Info) Description 09/07/2024 3:45 PM CDT Office Visit Department of Otorhinolaryngology in [place], [place] [address] [place] [phone] Julieta Brice M.D. [address] [place] [phone] 09/22/2024 10:00 AM CDT Appointment Department of Cardiovascular Diseases in [address] [phone] Yanick Cartwright APRN, C.N.P. [address] [phone] Discharge Disposition: Home or Self Care 09/22/2024 11:20 AM CDT Appointment Department of Laboratory Medicine in [address] [phone] Yanick Cartwright APRN, C.N.P. [address] [phone] 10/06/2024 7:30 AM CDT Clinical Communication Virtual Review in [place], [place] [address] [place] [address] 10/11/2024 2:50 PM CDT Comprehensive Visit Division of Gastroenterology in [place], [place] [address] [place] [address] Krishan Jeffrey M.B.B.S. [address] [place] [phone] 12/04/2024 2:00 PM CDT Office Visit Department of Family Medicine, [facility], in [place], [place] [address] [place] [address] Wendy Robles APRN CJairNJairPJair [address] [place] [address] documented as of this encounter Results * Northern Skin Test (08/04/2024 9:30 AM CDT) Narrative MMODAL - 08/04/2024 9:30 AM CDT Katherine Cha RMarek 08/04/2024 10:55 AM Panel Skin Tests Flowsheet Row Clinical Support from 08/04/2024 in Department of Allergy in [place], [place] Controls Histamine (15 min W/F) 9x9w/f Glycerine (15 min W/F) 0 Lucas Basic Adult Panel Adriana, White: 0 Tacho, White: 0 Birch: 0 [place], Red: 0 [place], Eastern: 0 Sardis: 0 Argyle: 0 [place], Shagbark: 0 Maple: 0 [place], White: 0 [place], Black: 0 May: 0 [place], White: 0 [place]: 0 [place], Wallisian: 0 [place], Black: 0 [place]: 0 B[place]uda: 7x7f Kentucky Blue: 0 Orchard: 0 Quack: 7x7f Red Flushing: 0 Franco: 0 Cocklebur: 0 Kochia: 0 James's Quarters: 0 Steele Elder, Burweed: 0 Mugwort, Common: 0 Nettle: 0 Plantain, Chadian: 0 Rough Pigweed: 0 Slovenian Thistle: 0 Short Ragweed: 0 Olpe, Sheep Red: 0 Cat Hair: 0 Cattle [...] from 08/04/2024 in Department of Allergy in [place], [place] Controls Histamine (15 min W/F) 9x9w/f Glycerine (15 min W/F) 0 Lucas Basic Adult Panel Adriana, White: 0 Tacho, White: 0 Birch: 0 [place], Red: 0 [place], Eastern: 0 Sardis: 0 Arg[place]: 0 [place], Shagbark: 0 Maple: 0 [place], White: 0 [place], Black: 0 May: 0 [place], White: 0 [place]: 0 [place], Wallisian: 0 [place], Black: 0 Live Oak: 0 Bermuda: 7x7f Kentucky Blue: 0 Orchard: 0 Quack: 7x7f Red Flushing: 0 Franco: 0 Cocklebur: 0 Kochia: 0 James's Quarters: 0 Steele Elder, Burweed: 0 Mugwort, Common: 0 Nettle: 0 Plantain, Chadian: 0 Rough Pigweed: 0 Slovenian Thistle: 0 Short Ragweed: 0 Olpe, Sheep Red: 0 Cat Hair: 0 Cattle [...] Depression Total Score: 10 025 11:16 AM CARDIAC TECH documented as of this encounter Care Teams Optical Effects Line Up Person Relationship Specialty Start Date End Date Lynn Jacobs M.D. [address] [place] [address] [place] [address] PCP - General Family Medicine 04/03/24 documented as of this encounter
--- OUTSIDE RECORDS SUMMARY | 2024-08-29 05:26 | XMS_ITS | Encounter Summary ---
Author Organization [facility] Address [address] [place] [address] Care Team Providers Care Cotton Ginner Name Role Phone Lynn Jacobs M.D. Primary Care Provider [phone] Reason for Visit * Reason Comments Consult Allergic Rhinitis Shortness of Breath * Outpatient (Routine) - Closed Specialty Diagnoses / Procedures Referred By Contac t Referred To Contact Allergy and Immunology Diagnoses Allergy Seasonal Wendy Robles APRN, C.N.P. [address] [address] Phone: tel: fax: [facility] Region Referral ID Status Reason Start Date Expiration Date V isits Requested Visits Authorized [id number] Closed Specialty Services Required 06/22/2024 12/22/2025 1 1 Encounter Details Date Type Department Care Team (Latest Contact Info) Description 08/04/2024 9:15 AM CDT Comprehensive Visit Department of Allergy in [place], [place] [address] [place] [phone] Reed Schmid M.D. [address] [place] [phone] Rhinitis Allergic Dust Mite (Primary Dx); Motion Vocal Fold Paradoxical; Rhinitis Allergic Due To Outdoor Pollen Discharge Disposition: Home or Self Care Social History Tobacco Use Types Packs/Day Years Used Date Smoking Tobacco: Never Smokeless Tobacco: Never Alcohol Use Standard Drinks/Week Comments No 0 (1 standard drink = 0.6 oz pur e alcohol) [facility] Utilities Answer Date Recorded In the past 12 months has e [employer], [employer], oil, or water [employer] threatened to shut off services in your [...] Answer Date Recorded PHQ-2 Score 5 06/19/2024 [place] of Occupat ional Health - Occupational Stress [...] your living situation today? I have a [facility] place to live 06/28/2023 Education Answer Date Recorded What is the highest level of school you have completed or the highest degree you have received? GED or equivalent Comments No Sex and Gender Information Value Date Recorded Sex Assigned at Female 06/28/2023 7:21 PM EXTRUSION PRESS ADJUSTER Legal Sex Female 2:56 PM EXTRUSION PRESS ADJUSTER Gender Identity Female 07/01/2019 7:57 PM EXTRUSION PRESS ADJUSTER Sexual Orientation Straight 07/01/2019 7: 57 PM EXTRUSION PRESS ADJUSTER documented as of this encounter Last [...] Body Mass Index 30.89 07/03/2024 11:14 AM EXTRUSION PRESS ADJUSTER documented in this encounter Consult Notes [...] is accompanied by her today. An in-person supply chain design manager was present for theentire visit. She reports [...] Proteins, IgE; Future; Expected date: 08/04/2024 - [place] Feathers, IgE; Future; Expected date: 08/04/2024 - [...] CDT Office Visit Department of Otorhinolaryngology in [place], [place] [address] [place] [address] Julieta Brice M.D. [address] [place] [address] 09/22/2024 10:00 AM CDT Appointment Department of Cardiovascular Diseases in [place], [place] [address] [place] [address] Yanick Cartwright, FREIGHT COORDINATOR, C.N.P. [address] [place] [address] Discharge Disposition: Home or Self Care 09/22/2024 11:20 AM CDT Appointment Department of Laboratory Medicine in [address] [phone] Yanick Cartwright APRN, C.N.P. [address] [place] [address] 10/06/2024 7:30 AM CDT Clinical Communication Virtual Review in [place], [place] [address] [place] [address] 10/11/2024 2:50 PM CDT Comprehensive Visit Division of Gastroenterology in [place], [place] [address] [place] [phone] Krishan Jeffrey M.B.BJairSJair [address] [place] [phone] 12/04/2024 2:00 PM CDT Office Visit Department of Family Medicine, [facility], in [place], [place] [address] [place] [phone] Wendy Robles APRN, C.N.P. [address] [phone] documented as of this encounter Results * Immunoglobulin E (IgE) (08/04/2024 10:44 AM CDT) Immunoglobulin E (IgE), S 76.2 <=214 kU/L 08/07/2024 6:17 PM CDT [facility] Blood (Blood, Venous) 08/04/2024 10:44 AM CDT 08/07/2024 2:24 PM CDT us Reed Schmid M.D. LAB BLOOD ADD-ON Final Resu lt Performing Organization Address City/[facility]/ZIP Co de Phone Number [facility] [address] [place] [address] [facility] [address] [place] [address] * Mouse Urine Protein, IgE (08/04/2024 10:44 AM CDT) Mouse Urine Protein, IgE <0.10 <0.70 kU/L 08/07/2024 6:17 PM CDT [facility] Comment:Class 0 (Negative <0 .10) Blood (Blood, Venous) 08/04/2024 10:44 AM CDT 08/07/2024 2:24 PM CDT Reed Schmid M.D. LAB BLOOD ADD-ON Final Resu lt Performing Organization Address City/[facility] Co de Phone Number [facility] [address] [place] [address] [facility] [address] [place] [address] * Mouse Serum Protein, IgE (08/04/2024 10:44 AM CDT) Mouse Serum Protein, IgE <0.10 <0.70 kU/L 08/07/2024 6:17 PM CDT [facility] Comment:Class 0 (Negative <0 .10) Blood (Blood, Venous) 08/04/2024 10:44 AM CDT 08/07/2024 2:24 PM CDT Reed Schmid M.D. LAB BLOOD ADD-ON Final Resu lt Performing Organization Address City/[facility] Co de Phone Number [facility] [address] [place] [address] [facility] [address] [place] [address] * Mouse Epithelium, IgE (08/04/2024 10:44 AM CDT) Mouse Epithelium, IgE <0.10 <0.70 kU/L 08/07/2024 6:16 PM CDT [facility] Comment:Class 0 (Negative <0 .10) Blood (Blood, Venous) 08/04/2024 10:44 AM CDT 08/07/2024 2:24 PM CDT Reed Schmid M.D. LAB BLOOD ADD-ON Final Resu lt Performing Organization Address [facility] Co de Phone Number [facility] [address] [place] [address] [facility] [address] [place] [address] * [place] Feathers, IgE (08/04/2024 10:44 AM CDT) Pathologist [facility] [place] Feathers, IgE <0.10 <0.70 kU/L 08/07/2024 6:16 PM CDT [facility] Comment:Class 0 (Negative <0 .10) Blood (Blood, Venous) 08/04/2024 10:44 AM CDT 08/07/2024 2:24 PM CDT Reed Schmid M.D. LAB BLOOD ADD-ON Final Resu lt Performing Organization Address [facility] de Phone Number [facility] [address] [place] [address] [facility] [address] [place] [address] * Chicken Serum Proteins, IgE (08/04/2024 10:44 AM CDT) Chicken Serum Proteins, IgE <0.10 <0.70 kU/L 08/07/2024 6:28 PM CDT [facility] Comment: Class 0 (Negative <0.10) ----ADDITIONAL INFORMATION---- This test was developed and its performance characteristics determined by [facility] in a manner consistent with CLIA requirements. This test has not been cleared or approved by the U.S. Food and Drug Administration. Blood (Blood, Venous) 08/04/2024 10:44 AM CDT 08/07/2024 2:24 PM CDT Reed Schmid M.D. LAB BLOOD ADD-ON Final Resu lt Performing Organization Address City/[facility]/ZIP Co de Phone Number [facility] [address] [place] [address] [facility] [address] [place] [address] * Chicken Droppings, IgE (08/04/2024 10:44 AM CDT) Chicken Droppings, IgE <0.10 <0.70 kU/L 08/07/2024 6:27 PM CDT [facility] Comment: Class 0 (Negative <0.10) ----ADDITIONAL INFORMATION---- This test was developed and its performance characteristics determined by [facility] in a manner consistent with CLIA requirements. This test has not been cleared or approved by the U.S. Food and Drug Administration. Blood (Blood, Venous) 08/04/2024 10:44 AM CDT 08/07/2024 2:24 PM CDT Reed Schmid M.D. LAB BLOOD ADD-ON Final Resu lt Performing Organization Address [facility] Co de Phone Number [facility] [address] [place] [address] [facility] [address] [place] [address] * Chicken Feathers, IgE (08/04/2024 10:44 AM CDT) Chicken Feathers, IgE <0.10 <0.70 kU/L 08/07/2024 6:16 PM CDT [facility] Comment:Class 0 (Negative <0 .10) Blood (Blood, Venous) 08/04/2024 10:44 AM CDT 08/07/2024 2:24 PM CDT Reed Schmid M.D. LAB BLOOD ADD-ON Final Resu lt [facility] [address] [place] [address] [facility] [address] 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 [address] [place] [phone] PCP - General Family Medicine 04/03/24 documented as of this encounter
--- OUTSIDE RECORDS SUMMARY | 2024-08-29 05:26 | XMS_ITS | Encounter Summary ---
Author Organization [facility] Address [address] [place] [address] Care Team Providers Care Closing Machine Operator Name Role Phone Lynn Jacobs M.D. Primary Care Provider [phone] Reason for Visit * Reason Comments Allergy Testing * Outpatient (Routine) - Closed Specialty Diagnoses / Procedures Referred By Peri gaytan Referred To Contact Diagnoses Rhinitis Allergic Procedures Northern Skin Test Reed Schmid M.D. [address] [address] Phone: tel: fax: [facility] Region Referral ID Status Reason Start Date Expiration Date Visits Re quested Visits Authorized [id number] Closed 07/17/2024 10/17/2025 1 1 Encounter Details Date Type Department Care Team (Latest Contact Info) Description 08/04/2024 9:30 AM CDT Clinical Support Department of Allergy in [place], [place] [address] [phone] Reed Schmid M.D. [address] [place] [phone] Katherine Cha, RJairNJair [address] [address] Rhinitis Allergic Discharge Disposition: Home or Self Care Social History Tobacco Use Types Packs/Day Years Used Date Smoking Tobacco: Never Smokeless Tobacco: Never Alcohol Use Standard Drinks/Week Comments No 0 (1 standard drink = 0.6 oz pur e alcohol) [facility] Utilities Answer Date Recorded In the past 12 months has th e [employer], [employer], oil, or water [employer] threatened to shut off services in your [...] often do you attend chur ch or druze services? 1 to 4 times per year [...] Answer Date Recorded PHQ-2 Score 5 06/19/2024 [facility] [place] of Occupat ional Health - Occupational Stress [...] Sex Assigned at Female 06/28/2023 7:21 PM CHORAL TEACHER Legal Sex Female 2:56 PM CHORAL TEACHER Gender Identity Female 07/01/2019 7:57 PM CHORAL TEACHER Sexual Orientation Straight 07/01/2019 7: 57 PM CHORAL TEACHER documented as of this encounter Procedure Notes * Katherine Cha R.N. - 08/04/2024 9:30 AM CDTAssociated Order(s): ALI BASIC SKIN TEST; ALI NORTHERN SKIN TEST Panel Skin Tests Flowsheet Row Clinical Support from 08/04/2024 in Department of Allergy in [place], [place] Controls Histamine (15 min W/F) 9x9w/f Glycerine (15 min W/F) 0 [place] Basic Adult Panel Black, White: 0 Tacho, White: 0 Birch: 0 [place], Red: 0 [place], Eastern: 0 [place]: 0 [place]: 0 [place], Shagbark: 0 Maple: 0 [place], White: 0 [place], Black: 0 [place]: 0 [place], White: 0 [place]: 0 [place], Filipino: 0 [place], Black: 0 [place]: 0 [place]: 7x7f [place] Blue: 0 Orchard: 0 Quack: 7x7f Red [place]orne: 0 Franco: 0 Cocklebur: 0 Kochia: 0 James's Qu[place]: 0 [place], Burweed: 0 Mugwort, Common: 0 Nettle: 0 Plantain, Estonian: 0 Rough Pigweed: 0 [place]uran Thistle: 0 Short Ragweed: 0 Edith Endave, Sheep Red: 0 Cat Hair: 0 Cattle [...] CDT Office Visit Department of Otorhinolaryngology in [place], [place] [address] [place] [phone] Julieta Brice M.D. [address] [place] [phone] 09/22/2024 10:00 AM CDT Appointment Department of Cardiovascular Diseases in [address] [phone] Yanick Cartwright APRN, C.N.P. [address] [place] [phone] Discharge Disposition: Home or Self Care 09/22/2024 11:20 AM CDT Appointment Department of Laboratory Medicine in [address] [phone] Yanick Cartwright APRN, C.N.P. [address] [phone] 10/06/2024 7:30 AM CDT Clinical Communication Virtual Review in [place], [place] 200 [place] [phone] 10/11/2024 2:50 PM CDT Comprehensive Visit Division of Gastroenterology in [place], [place] [address] [place] [phone] Krishan Jeffrey M.B.BJairS. [address] [place] [phone] 12/04/2024 2:00 PM CDT Office Visit Department of Family Medicine, [facility], in [place], [place] [address] [place] [phone] Wendy Roblse APRN, C.N.P. [address] [place] [phone] documented as of this encounter Procedures Procedure [...] from 08/04/2024 in Department of Allergy in [place], [place] Controls Histamine (15 min W/F) 9x9w/f Glycerine (15 min W/F) 0 [place] Basic Adult Panel Adriana, White: 0 Tacho, White: 0 Birch: 0 [place], Red: 0 [place], Eastern: 0 [place]: 0 [place]: 0 [place], Shagbark: 0 Maple: 0 Clare, White: 0 [place], Black: 0 [place]: 0 [place], White: 0 [place]: 0 [place], Filipino: 0 [place], Black: 0 [place]: 0 [place]: 7x7f [place] Blue: 0 Orchard: 0 Quack: 7x7f Red [place]: 0 Franco: 0 Cocklebur: 0 Kochia: 0 James's Qu[place]: 0 [place], Burweed: 0 Mugwort, Common: 0 Nettle: 0 Plantain, Estonian: 0 Rough Pigweed: 0 [place]uran Thistle: 0 Short Ragweed: 0 Edith Endave, Sheep Red: 0 Cat Hair: 0 Cattle [...] from 08/04/2024 in Department of Allergy in [place], [place] Controls Histamine (15 min W/F) 9x9w/f Glycerine (15 min W/F) 0 [place] Basic Adult Panel Adriana, White: 0 Tacho, White: 0 Birch: 0 [place], Red: 0 [place], Eastern: 0 [place]: 0 [place]: 0 [place], Shagbark: 0 Maple: 0 Clare, White: 0 [place], Black: 0 [place]: 0 [place], White: 0 [place]: 0 [place], Filipino: 0 [place], Black: 0 [place]: 0 [place]: 7x7f [place] Blue: 0 Orchard: 0 Quack: 7x7f Red [place]: 0 Franco: 0 Cocklebur: 0 Kochia: 0 James's Quarters: 0 [place], Burweed: 0 Mugwort, Common: 0 Nettle: 0 Plantain, Estonian: 0 Rough Pigweed: 0 [place]uran Thistle: 0 Short Ragweed: 0 Edith Endave, Sheep Red: 0 Cat Hair: 0 Cattle [...] Total Score: 10 06/19/ 025 11:16 AM CHORAL TEACHER documented as of this encounter Care Teams Closing Machine Operator Relationship Specialty Start Date End Date Lynn Jacobs M.D. [address] [place] [phone] PCP - General Family Medicine 04/03/24 documented as of this encounter
--- OUTSIDE RECORDS SUMMARY | 2024-08-29 05:27 | XMS_ITS | Encounter Summary ---
Author Organization [facility] Address [address] [place] [address] Care Team Providers Care Retread Supervisor Name Role Phone Lynn Jacobs M.D. Primary Care Provider [phone] Reason for Referral * Outpatient (Routine) - Authorized Specialty Diagnoses / Procedures Referred By Peri gaytan Referred To Contact Otorhinolaryngology Diagnoses Vocal Cord Disease Lynn Jacobs M.D. [address] [place] [address] Phone: tel: fax: [facility] Region Referral ID Status Reason Start Date Expiration Date Visits Requested Visits Authorized [id number] Authorized Specialty Services Required 08/17/2024 02/16/2026 1 1 Encounter Details Date Type Department Care Team (Late st Contact Info) Description 08/17/2024 Orders Only Department of Family Medicine, [facility], in [place], [place] [address] [place] [address] Lynn Jacobs M.D. [address] [place] [phone] Vocal Cord Disease (Primary Dx) Social History Tobacco Use Types Packs/Day Years Used Date Smoking Tobacco: Never Smokeless Tobacco: Never Alcohol Use Standard Drinks/Week Comments No 0 (1 standard drink = 0.6 oz pur e alcohol) [facility] Utilities Answer Date Recorded In the past 12 months has th e electric, [employer], oil, or water [employer] threatened to shut off services in [...] often do you attend chur ch or orthodox services? 1 to 4 times per year 07/01/2019 Do you belong to any clubs o r organizations such as shinto groups, unions, fraternal or athletic groups, or [...] Answer Date Recorded PHQ-2 Score 5 06/19/2024 [place] of Occupat ional Health - Occupational Stress [...] your living situation today? I have a [facility] place to live 06/28/2023 Education Answer Date Recorded What is the highest level of school you have completed or the highest degree you have received? GED or equivalent Comments No Sex and Gender Information Value Date Recorded Sex Assigned at Female 06/28/2023 7:21 PM TRAVEL COUNSELOR Legal Sex Female 2:56 PM TRAVEL COUNSELOR Gender Identity Female 07/01/2019 7:57 PM TRAVEL COUNSELOR Sexual Orientation Straight 07/01/2019 7: 57 PM TRAVEL COUNSELOR documented as of this encounter Plan of Treatment Upcoming Encounters Date Type Department Care Team (Latest Contact Info) Description 09/07/2024 3:45 PM CDT Office Visit Department of Otorhinolaryngology in [place], [place] [address] [place] [phone] Julieta Brice M.D. [address] [place] [phone] 09/22/2024 10:00 AM CDT Appointment Department of Cardiovascular Diseases in [address] [phone] aYnick Cartwright APRN, C.N.P. [address] [place] [phone] Discharge Disposition: Home or Self Care 09/22/2024 11:20 AM CDT Appointment Department of Laboratory Medicine in [address] [phone] Yanick Cartwright APRN, C.N.P. [address] [place] [phone] 10/06/2024 7:30 AM CDT Clinical Communication Virtual Review in [place], [place] 200 [place] [phone] 10/11/2024 2:50 PM CDT Comprehensive Visit Division of Gastroenterology in [place], [place] [address] [place] [phone] Krishan Jeffrey M.B.B.S. [address] [place] [phone] 12/04/2024 2:00 PM CDT Office Visit Department of Family Medicine, [facility], in [place], [place] [address] [place] [phone] Wendy Robles APRN, C.N.P. [address] [place] [phone] Scheduled Referrals Name Type Priority Associated Diagnoses Order Schedule [facility] Otorhinolaryngology - General consult (clinic) Outpatient Referral Routine Vocal Cord Disease Expected: 08/17/2024, Expires: 11/16/2025 documented as of this encounter Visit Diagnoses Diagnosis Vocal Cord Disease- Primary documented in this encounter Additional Health Concerns Assessment Noted Time PHQ-9 Depression Total Score: 10 025 11:16 AM TRAVEL COUNSELOR documented as of this encounter Care Teams Retread Supervisor Relationship Specialty Start Date End Date Lynn Jacobs M.D. [address] [place] [phone] PCP - General Family Medicine 04/03/24 documented as of this encounter
--- OUTSIDE RECORDS SUMMARY | 2024-08-29 05:27 | XMS_ITS | Encounter Summary ---
Author Organization [facility] Address [address] [place] [address] Care Team Providers Care Mobile Heavy Equipment Operator Name Role Phone Lynn Jacobs M.D. Primary Care Provider [phone] Reason for Visit * Reason Onset Date Comments Appt Request 06/23/2024 Encounter Details Date Type Department Care Team (Latest Contact Info) Description 06/23/2024 Clinical Communication Department of Otorhinolaryngology in [place], [place] [address] [place] [phone] Julieta Brice M.D. [address] [place] [phone] Appt Request Social History Tobacco Use Types Packs/Day Years Used Date Smoking Tobacco: Never Smokeless Tobacco: Never Alcohol Use Standard Drinks/Week Comments No 0 (1 standard drink = 0.6 oz pur e alcohol) [facility] Utilities Answer Date Recorded In the past 12 months has [facility] [employer], gas, oil, or water [employer] threatened to shut off services in your [...] How often do you attend chur or buddhist services? 1 to 4 times per year [...] 5 06/19/2024 [facility] of Occupat ionak Health - Occupational Stress Questionnaire Answer Date [...] your living situation today? I have a [facility] place to live 06/28/2023 Education Answer Date Recorded What is the highest level of school you have completed or the highest degree you have received? GED or equivalent Comments No Sex and Gender Information Value Date Recorded Sex Assigned at Female 06/28/2023 7:21 PM CHEMICAL TEST ENGINEER Legal Sex Female 2:56 PM CHEMICAL TEST ENGINEER Gender Identity Female 07/01/2019 7:57 PM CHEMICAL TEST ENGINEER Sexual Orientation Straight 07/01/2019 7: 57 PM CHEMICAL TEST ENGINEER documented as of this encounter Plan of Treatment Upcoming Encounters Date Type Department Care Team (Latest Contact Info) Description 09/07/2024 3:45 PM CDT Office Visit Department of Otorhinolaryngology in [place], [place] 200 [place] [phone] Julieta Brice M.D. [address] [place] [address] 09/22/2024 10:00 AM CDT Appointment Department of Cardiovascular Diseases in [place], [place] 300 [place] [phone] Yanick Cartwright APRN, C.N.P. [address], [place] [phone] Discharge Disposition: Home or Self Care 09/22/2024 11:20 AM CDT Appointment Department of Laboratory Medicine in [place], [place] [address] [place] [phone] Yanick Cartwright APRN, C.N.P. [address], [place] [phone] 10/06/2024 7:30 AM CDT Clinical Communication Virtual Review in [place], [place] [address] [place] [phone] 10/11/2024 2:50 PM CDT Comprehensive Visit Division of Gastroenterology in [place], [place] [address] [place] [phone] Krishan Jeffrey M.B.BJairS. [address] [place] [phone] 12/04/2024 2:00 PM CDT Office Visit Department of Family Medicine, [facility], in [place], [place] [address] [place] [phone] Wendy Robles APRN, C.N.P. [address] [phone] documented as of this encounter Visit Diagnoses Not on filedocumented in this encounter Additional Health Concerns Assessment Noted Time PHQ-9 Depression Total Score: 10 025 11:16 AM CHEMICAL TEST ENGINEER documented as of this encounter Care Teams Mobile Heavy Equipment Operator Relationship Specialty Start Date End Date Lynn Jacobs M.D. [address] [place] [phone] PCP - General Family Medicine 04/03/24 documented as of this encounter
--- OUTSIDE RECORDS SUMMARY | 2024-08-29 05:27 | XMS_ITS | Encounter Summary ---
Author Organization [facility] Address [address] [place] [address] Care Team Providers Care Slot Machine Floor Person Name Role Phone Lynn Jacobs M.D. Primary Care Provider [phone] Reason for Referral * Cardiovascular-Diagnostic (Routine) - Authorized Specialty Diagnoses / Procedures Referred By Contac t Referred To Contact Diagnoses Dyspnea On Exertion Palpitations Procedures Echo Transthoracic (TTE) Yanick Cartwright APRN, C.N.P. [address], [place] [address] Phone: tel: fax: [facility] Region Referral ID Status Reason Start Date Expiration Date V isits Requested Visits Authorized [id number] Authorized 07/28/2024 10/28/2025 1 1 Reason for Visit * Reason Comments Advice Only * Outpatient (Routine) - Closed Specialty Diagnoses / Procedures Referred By Contact Referred To Contact Cardiovascular Diseases / Cardiovascular Disease Diagnoses Hypertension Essential Primary Dyspnea On Exertion Krishan Jeffrey M.B.BJairS. [address] [place] [address] Phone: tel: fax: [facility] Region Referral ID Status Reason Start Date Expiration Date Visits Re quested Visits Authorized [id number] Closed 07/03/2024 01/02/2026 1 1 Encounter Details Date Type Department Care Team (Latest Contact Info) Description 07/28/2024 1:30 PM CDT Comprehensive Visit Department of Cardiovascular Diseases in [place], [place] [address] [place] [address] Yanick Cartwright, CINTHIA, C.N.P. [address] [place] [address] Palpitations (Primary Dx); Dyspnea On Exertion; Hypertension Essential Primary Social History Tobacco Use Types Packs/Day Years Used Date Smoking Tobacco: Never Smokeless Tobacco: Never Alcohol Use Standard Drinks/Week Comments No 0 (1 standard drink = 0.6 oz pur e alcohol) [facility] Utilities Answer Date Recorded In the past 12 months has e [employer], gas, oil, or water [employer] threatened to shut off services in your [...] often do you attend chur ch or cheondoism services? 1 to 4 times [...] Answer Date Recorded PHQ-2 Score 5 06/19/2024 [facility] - Occupational Stress Questionnaire Answer Date Recorded [...] Sex Assigned at Female 06/28/2023 7:21 PM ROLLER STRUCTURAL MILL Legal Sex Female 2:56 PM ROLLER STRUCTURAL MILL Gender Identity Female 07/01/2019 7:57 PM ROLLER STRUCTURAL MILL Sexual Orientation Straight 07/01/2019 7: 57 PM ROLLER STRUCTURAL MILL documented as of this encounter Last Filed [...] Body Mass Index 31.21 07/03/2024 11:14 AM ROLLER STRUCTURAL MILL documented in this encounter Consult Notes * Yanick Cartwright, CINTHIA, C.N.P. - 07/28/2024 1:30 PM CDT SUBJECTIVE CHIEF COMPLAINT/REASON FOR VISIT Palpitations, dizziness, shortness of breath REFERRAL SOURCE Krishan Jeffrey M.B.B.S. HISTORY OF PRESENT ILLNESS Liv Evans is seen today for consultation in the setting of recent symptoms that were mentioned to her pharmacovigilance scientist at a visit last month. She was [...] sleep disordered breathing. She did wear a vp customer development prior to her visit with me today, [...] future. An echocardiogram was ordered by her pharmacovigilance scientist but this has not been scheduled. CURRENT [...] Insecurity: No Food Insecurity (03/01/2024) [facility] Food Insecurity Do you worry your food will run out before you are able to buy more?: 1 Transportation Needs: No Transportation Needs (03/01/2024) [facility] Transportation Needs Does lack of transportation keep you from medical appointments?: 1 Does lack of transportation keep you from work, meetings or getting things that you need?: 1 Physical Activity: Sufficiently Active (06/28/2023) Exercise Vital Sign Days of Exercise per Week: 4 days Minutes of Exercise per Session: 40 min Intimate Partner Violence: Not At Risk (07/04/2019) [facility] Humiliation, Afraid, Rape, and Kick questionnaire Fear of Current or Ex-Partner: No Emotionally Abused: No Physically Abused: No Sexually Abused: No Housing Stability: Medium Risk (03/01/2024) [facility] Housing Stability What is your housing [...] Otorhinolaryngology in [place], [place] [address] [place] [address] Julieta Brice M.D. [address] [place] [address] 09/22/2024 10:00 AM CDT Appointment Department of Cardiovascular Diseases in [address] [address] Yanick Cartwright APRN, C.N.P. [address] [phone] Discharge Disposition: Home or Self Care 09/22/2024 11:20 AM CDT Appointment Department of Laboratory Medicine in [address] [place] [address] Yanick Cartwright APRN, C.N.P. [address] [address] 10/06/2024 7:30 AM CDT Clinical Communication Virtual Review in [place], [place] [address] [place] [phone] 10/11/2024 2:50 PM CDT Comprehensive Visit Division of Gastroenterology in [place], [place] [address] [place] [phone] Krishan Jeffrey M.B.B.S. [address] [place] [phone] 12/04/2024 2:00 PM CDT Office Visit Department of Family Medicine, [facility], in [place], [place] [address] [address] Wendy Robles APRN, C.N.P. [address] [address] Scheduled Orders Name Type Priority [...] Depression Total Score: 10 025 11:16 AM ROLLER STRUCTURAL MILL documented as of this encounter Care Teams Slot Machine Floor Person Relationship Specialty Start Date End Date Lynn Jacobs M.D. [address] [place] [address] PCP - General Family Medicine 04/03/24 documented as of this encounter
--- OUTSIDE RECORDS SUMMARY | 2024-08-29 05:27 | XMS_ITS | Encounter Summary ---
Author Organization [facility] Address [address] [place] [address] Care Team Providers Care Bowling Floor Desk Clerk Name Role Phone Lynn Jacobs M.D. Primary Care Provider [phone] Reason for Referral * Outpatient (Routine) - Authorized Specialty Diagnoses / Procedures Referred By Peri gaytan Referred To Contact General Surgery Diagnoses Arteritis Giant Cell (HCC) Lynn Jacobs M.D. [address] [place] [address] Phone: tel: fax: [facility] Region Referral ID Status Reason Start Date Expiration Date Visits Requested Visits Authorized [id number] Authorized Specialty Services Required 08/28/2024 02/27/2026 1 1 Reason for Visit * Reason Comments Facial Pain R facial pain/deepali e feeling with headaches X 3 weeks * Appointment Request (Routine) - Closed Specialty Diagnoses / Procedures Referred By Peri gaytan Referred To Contact Family Medicine Referral ID Status Reason Start Date Expiration Date Visits Re quested Visits Authorized [id number] Closed 08/21/2024 11/21/2025 1 1 Encounter Details Date Type Department Care Team (Late st Contact Info) Description 08/28/2024 9:40 AM CDT Office Visit Department of Family Medicine, [facility], in [place], [place] [address] [place] [address] Lynn Jacobs M.D. [address] [place] [address] Headache Unspecified (Primary Dx); Arteritis Giant Cell (HCC); Hypertension Essential Primary Social History Tobacco Use Types Packs/Day Years Used Date Smoking Tobacco: Never Smokeless Tobacco: Never Tobacco Cessation:Counseling Given: Not Answered Alcohol Use Standard Drinks/Week Comments No 0 (1 standard drink = 0.6 oz pur e alcohol) [facility] Utilities Answer Date Recorded In the past 12 months has e [employer], [employer], oil, or water [employer] threatened to shut off services in your [...] [facility] - Occupational Stress Questionnaire Answer Date [...] Assigned at Female 06/28/2023 7:21 PM FOOD CONSULTANT Legal Sex Female 2:56 PM FOOD CONSULTANT Gender Identity Female 07/01/2019 7:57 PM FOOD CONSULTANT Sexual Orientation Straight 07/01/2019 7: 57 PM FOOD CONSULTANT documented as of this encounter Last [...] taking medication as it wasn't working. Awaiting cable driller appointment. - Previously prescribed two medications for blood pressure control hydrochlorothiazide and metoprolol for palpitation. - Visited eye doctor 2 weeks ago who reported everything looked fine. Additional eye tests scheduled for this . - Recently visited [facility] Emergency Department for these symptoms. CT scan [...] CDT Office Visit Department of Otorhinolaryngology in [place], [place] [address] [place] [phone] Julieta Brice M.D. [address] [place] [phone] 09/22/2024 10:00 AM CDT Appointment Department of Cardiovascular Diseases in [place], [place] [address] [place] [phone] Yanick Cartwright APRN, C.N.P. [address] [place] [phone] Discharge Disposition: Home or Self Care 09/22/2024 11:20 AM CDT Appointment Department of Laboratory Medicine in [address] [phone] Yanick Cartwright APRN, C.N.P. [address] [phone] 10/06/2024 7:30 AM CDT Clinical Communication Virtual Review in [place], [place] [address] [place] [phone] 10/11/2024 2:50 PM CDT Comprehensive Visit Division of Gastroenterology in [place], [place] [address] [place] [phone] Krishan Jeffrey M.B.B.S. [address] [place] [phone] 12/04/2024 2:00 PM CDT Office Visit Department of Family Medicine, [facility], in [place], [place] [address] [place] [phone] RoblesWendy white, CINTHIA, C.N.P. [address] [...] ADD-ON Final Resul t Performing Organization Address City/[facility] Health/ZIP Co de Phone Number [facility] [address] [place] [address], [facility] FB60 [facility] in [place] [address] [place] [address] * Sedimentation Rate (08/28/2024 10:03 AM CDT) Sedimentation Rate, B 14 0 - 29 mm/1 h 08/28/2024 3:26 PM CDT AUST Blood (Blood, Venous) 08/28/2024 10:03 AM CDT 08/28/2024 2:52 PM CDT us Lynn Jacobs M.D. LAB BLOOD ADD-ON Final Resul t Performing Organization Address City/[facility] Health/ZIP Co de Phone Number [facility] [address] [place] [address], [facility] - [facility] [address] [place] [address] documented in this encounter Visit Diagnoses Diagnosis Headache Unspecified- Primary Arteritis Giant Cell (HCC) Hypertension Essential Primary documented in this encounter Additional Health Concerns Assessment Noted Time PHQ-9 Depression Total Score: 10 06/19/2 025 11:16 AM FOOD CONSULTANT documented as of this encounter Care Teams Bowling Floor Desk Clerk Relationship Specialty Start Date End Date Lynn Jacobs M.D. [address] [facility] [place] [address] PCP - General Family Medicine 04/03/24 documented as of this encounter
--- OUTSIDE RECORDS SUMMARY | 2024-08-29 05:27 | XMS_ITS | Clinical Summary ---
Author Organization [facility] Address [address] [place] [address] Care Team Providers Care Ice Cream Scooper Name Role Phone Yinka Hankins MD Unavailable [phone] Brinda Cordero MD Primary Care Provider [phone] Mouna Marroquin RN Unavailable Allergies Active Allergy Reactions Criticality Noted Date Comments Latex Itching 01/04/2008 Pt reports a little tightness with breathing and itching Penicillins Hives 01/04/2008 Sulfamethoxazole-Trimethopr im 06/04/2008 Medications Eqwstyad-Oo-Sqq -Fe-FA tab tablet Take 1 Tablet by [...] 04/07/2022 Obesity affecting , antepartum 04/24/2021 04/07/[address] [facility] Supervision of high-risk 03/11/2021 04/07/2022 Overview (03/11/2021): [facility] CONSULTATION ON 03/17/21 ALS heel seat pounder needed REASON FOR CONSULT: hx PTD x 2, HTN, hx GDM, deafness Per notes, starting [place] and cervical lengths at 16w TODAY'S APPOINTMENT: MD Consultation PRIMARY DIAGNOSIS: 30 y.o. Estimated Date of Delivery: 09/10/21 Deaf - non speaking PCOS Infertility HTN - no meds Asthma Hx Migraines OB Hx: 2019 PTD 35w6d - PPROM, GDMA1 2013 PTD 34w1d - PPROM 30w4d (transfer from [facility] - [facility] assumed care) LAST GROWTH: 03/10/21 13w5d 01/21/21 6w2d REFERRING PHYSICIAN/PHONE/LAST UPDATE: Brinda Cordero MD [place] Primary MD approves scheduling of recommended ultrasounds/testing: [...] she is able to communicate through written Irish COVID-19 affecting in second trimester 04/07/2022 Large for gestational age fe tus affecting management of mother, antepartum, first trimester, not applicable or unspecified fetus 04/07/2022 Short cervix 04/07/2022 Immunizations Immunization Administration Dates Next Due COVID-19 vaccine (EndPlay NTech 30mcg/0.3mL) 12YO+ BIVALENT PF, MDV 04/07/2022 COVID-19 vaccine (EndPlay NTDick or Bro 30mcg/0.3mL) PF, MDV 02/26/2021,02/05/2021 DTP 12/05/1993, 1,1988,1988,1988 [...] Date Recorded PHQ-2 TOTAL SCORE 0 12/18/2021 [facility] [...] on file Legal Sex Female 6:49 AM SHIELD OPERATOR Gender Identity Not on file Sexual [...] g 8 9 NEGRET E,BG Ahanya Delivery Location:[facility] Comments:pPROM at 30 4 /7 weeks 2019 35w 6d 2.27 kg (5 lb) F Vag None Y Livin g [place] n Delivery Location:[facility] ( [facility]) Last Filed Vital Signs Vital Sign [...] of high risk in first trimester (HC) WIRE SAWYER THIN PREP PAP SCREEN IMAGED Routine 05/16/2019 11:35 AM SHIELD OPERATOR Pap smear for cervical cancer screening from Last 3 Months or Most Recently Relevant to Health Maintenance Results * ANTI HCV (03/05/2021 9:54 AM CDT) Pathologist [facility] HEPATITIS C ANTIBODY Non-React kushal Non-React kushal 03/05/2021 6:03 PM CDT [facility] Comment:Antibodies to HCV no t detected; does not exclude the possibility of exposure to HCV. Blood BLOOD SPECIMEN / Unknown Venipuncture / Unknown 03/05/2021 9:54 AM CDT 03/05/2021 9:54 AM CDT us Brinda Cordero MD SEND OUTS Final Resul t [facility] [address] [place] [address], [place] * ANTI HIV 1/2 (03/05/2021 9:54 AM CDT) HIV-1/HIV-2 ANTIBODY Non-Reacti ve Non-Reacti ve 03/05/2021 5:57 PM CDT [facility] Comment:HIV-1 p24 and HIV-1/ HIV-2 Ab not detected. Blood BLOOD SPECIMEN / Unknown Venipuncture / Unknown 03/05/2021 9:54 AM CDT 03/05/2021 9:54 AM CDT us Brinda Cordero MD SEND OUTS Final Resul t [facility] [address] [place] [address], [place] * WIRE SAWYER THIN PREP PAP SCREEN IMAGED (05/16/2019 11:35 AM SHIELD OPERATOR) Case Report Gynecologic Cytology Report Case: [id number] Authorizing Provider: Maribell Hong NP Collected: 05/16/2019 1135 Ordering Location: [facility] Received: 05/16/2019 1135 Clinic First Screen: Beckie Jay Specimen: WIRE SAWYER ThinPrep Vial Screening, Cervical 05/25/2019 9:28 AM SHIELD OPERATOR [facility] INTERPRETATION/ RESULT NEGATIVE FOR INTRAEPITHELIAL LESION OR MALIGNANCY (NIL) (none) 05/25/2019 9:28 AM SHIELD OPERATOR [facility] at 0928 SHIELD OPERATOR SPECIMEN ADEQUACY Satisfactory for evaluation Endocervical component present 05/25/2019 9:28 AM SHIELD OPERATOR [facility] HPV REQUEST HPV if ASCUS 05/25/2019 9:28 AM SHIELD OPERATOR [facility] Date of LMP 04/14/2019 05/25/2019 9:28 AM SHIELD OPERATOR [facility] Last Pap Date 01/14/17 05/25/2019 9:28 AM SHIELD OPERATOR [facility] Last Pap Result NIL 0 9:28 AM SHIELD OPERATOR [facility] Abnormal Pap or [place] Bx in last 5 years No 05/25/2019 9:28 AM SHIELD OPERATOR [facility] Menstrual Status Regular Periods 05/25/2019 9:28 AM SHIELD OPERATOR [facility] [place] Bx Done Today No 05/25/2019 9:28 AM SHIELD OPERATOR [facility] Additional Information None given 05/25/2019 9:28 AM SHIELD OPERATOR [facility] Comment: Cytology is screened at [facility] - [address], [place] [address] and [facility] - [address], [place] [address] and [facility] - [address] [place] [address] Interpreted at [facility] - [address], [place] [address] Automated Review Successful 05/25/2019 9:28 AM SHIELD OPERATOR [facility] Comment:Specimen processed s uccessfully by automated grain elevator agent device, ThinPrep Imaging System, [employer] Note The pap test is a screening technique, not a diagnostic procedure. It is used primarily to screen for squamous cancers and precursor lesions. Published studies have shown that it is subject to both false negative and false positive results. The pap test should not be used as the sole means to diagnose or exclude pre-malignant and malignant lesions. 05/25/2019 9:28 AM [facility] Other (Cervical) Non-Blood / Unknown 05/16/2019 11:35 AM SHIELD OPERATOR 05/16/2019 11:35 AM SHIELD OPERATOR Maribell Hong NP PATHOLOGY/CYTOLOGY Final Result [facility] [address] [place] [address], [place] from Last 3 Months or Most [...] Comments Code Status Discussion: Discussed Care Teams Ice Cream Scooper Relationship Specialty Start Date End Date Brinda Cordero MD [address] [place] [address] PCP - General Family Practice 02/26/21 Yinka Hankins MD [address] [place] [address] Rheumatology Rheumatology 12/10/15 Mouna Marroquin RN [address] [place] [address] Community Outreach Manager 06/19/21
--- OUTSIDE RECORDS SUMMARY | 2024-08-29 05:27 | XMS_ITS | Clinical Summary ---
Author Organization [facility] Address [address] [place] [phone] Phone Care Team Providers Care Cone Treater Name Role Phone Brinda Cordero MD Primary [...] Comments Blood Pressure 124/84 04/27/2023 11:01 AM BIOFUELS PRODUCT MANAGER Pulse 88 04/27/2023 11:01 AM BIOFUELS PRODUCT MANAGER Temperature 36.4 C (97.6 F) 04/27/2023 11:01 AM BIOFUELS PRODUCT MANAGER Respiratory Rate 16 03/16/2023 9:33 AM CDT Oxygen Saturation 98% 03/16/2023 9:33 AM CDT Inhaled Oxygen Concentration - - Weight 77.3 kg (170 lb 6.4 oz) 04/27/2023 11:01 AM BIOFUELS PRODUCT MANAGER Height 161.3 cm (5' 3.5) 04/27/2023 11:01 AM CS T Body Mass Index 29.71 04/27/2023 11:01 AM BIOFUELS PRODUCT MANAGER Plan of Treatment Health Maintenance Due Date Last Done Comments Pneumococcal PPSV23 Highest Risk Adult (1 of 3 - PCV13) 2007 COVID-19 Vaccine ( - 2023-2 5 season) 2024 04/07/2022, 02/26/2021, 02/05/2021 Influenza Vaccine (Season Ended) 2025 04/07/2022, 08/22/2021, 03/17/2019, Additional history exists Insurance PM INTERFACED INSURANCE PM INTERFACED INSURANCE Care Teams Cone Treater Relationship Specialty Start Date End Date Brinda Cordero MD [address] [place] [address] PCP - General Family Medicine 03/16/23
--- OUTSIDE RECORDS SUMMARY | 2024-08-29 05:27 | XMS_ITS | Clinical Summary ---
Author Organization [facility] Address [address] [place] [address] Care Team Providers Care Assistant Office Manager Name Role Phone Lynn Jacobs M.D. Primary Care Provider [phone] Source Comments Patient records contain information from all sites at [facility]. For routine questions regarding patient records, call [phone] during business hours, M-F 8:00 AM - 5:00 PM Central Time. Record requests for emergency care only can be directed to [phone] at any time.[facility] Allergies Active Allergy Reactions Criticality Noted Date [...] original. OB education completed. Pre-reg completed at [facility]. LMP:05/18/2019 EDC:02/22/2020 [place] provider:Dr. Memo KING involved:, Jaxson Problem Noted [...] Hospital Encounter Department of Laboratory Medicine in [address] [address] Lynn Jacobs M.D. Headache Unspecified Discharge Disposition: Home or Self Care 08/28/2024 9:40 AM CDT Office Visit Department of Family Medicine, [facility], in [place], [place] [address] [facility] [place] [address] Lynn Jacobs M.D. Headache Unspecified (Primary Dx); Arteritis Giant Cell (HCC); Hypertension Essential Primary 08/17/2024 Orders Only Department of Family Medicine, [facility], in [place], [place] [address] [facility] [place] [address] Lynn Jacobs M.D. Vocal Cord Disease (Primary Dx) 08/09/2024 Results Follow-Up Department of Allergy in [place], [place] [address] [address] Reed Schmid M.D. Chicken Feathers, IgE, Chicken Droppings, IgE, Chicken Serum Proteins, IgE, Additional followed-up results: 5 08/04/2024 10:37 AM CDT - 08/04/2024 11:59 PM CDT Hospital Encounter Department of Laboratory Medicine in [place], [place] [address] [address] Reed Schmid M.D. Rhinitis Allergic Discharge Disposition: Home or Self Care 08/04/2024 9:30 AM CDT Clinical Support Department of Allergy in [place], [place] [address] [address] Reed Schmid M.D. Juenger, Carrie J, R.NJair Rhinitis Allergic Discharge Disposition: Home or Self Care 08/04/2024 9:15 AM CDT Comprehensive Visit Department of Allergy in [place], [place] [address] [address] Reed Schmid M.D. Rhinitis Allergic Dust Mite (Primary Dx); Motion Vocal Fold Paradoxical; Rhinitis Allergic Due To Outdoor Pollen Discharge Disposition: Home or Self Care 07/28/2024 1:30 PM CDT Comprehensive Visit Department of Cardiovascular Diseases in [place], [place] [address] [place] [address] Yanick Cartwright, CINTHIA, C.N.PJair Palpitations (Primary Dx); Dyspnea On Exertion; Hypertension Essential Primary 07/14/2024 Clinical Communication Department of Allergy in [place], [place] [address] [place] [address] Emmy Caraballo L.P.N. Previsit Preparation 07/05/2024 2:01 PM CHIEF UNDERWRITER - 07/05/2024 11:59 PM CHIEF UNDERWRITER Hospital Encounter Department of Cardiovascular Diseases in [place], [place] [address] [address] Babar Jc M.D. Tachycardia Discharge Disposition: Home or Self Care 07/04/2024 Orders Only Department of Cardiovascular Diseases in [place], [place] [address] [address] Babar Jc M.D. Tachycardia (Primary Dx) 07/03/2024 2:30 PM CHIEF UNDERWRITER Diagnostic Division of Pulmonary Medicine in [place], [place] [address] [place] [address] Krishan Jeffrey M.B.B.S. Vasculitis (HCC); Dizziness; Dyspnea On Exertion 07/03/2024 11:30 AM CHIEF UNDERWRITER Office Visit Division of Pulmonary Medicine in [place], [place] [address] [place] [address] Krishan Jeffrey M.B.B.S. Lung Interstitial Disease (HCC) 07/03/2024 7:23 AM CHIEF UNDERWRITER - 07/03/2024 11:59 PM CHIEF UNDERWRITER Hospital Encounter Department of Radiology, [facility] in [place], [place] [address] [place] [address] Krishan Jeffrey M.B.B.SJair Lung Interstitial Disease (HCC) Discharge Disposition: Home or Self Care 07/03/2024 Clinical Communication Department of Cardiovascular Medicine in [place], [place] [address] [place] [address] Casing PullerZuhair M.D. 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 Appt Request 06/23/2024 Orders Only Division of Pulmonary Medicine in [place], [place] [address] [place] [address] Krishan Jeffrey M.B.B.S. Vasculitis (HCC) (Primary Dx) 06/22/2024 3:30 PM CHIEF UNDERWRITER Comprehensive Visit Department of Family Medicine, [facility], in [place], [place] [address] [address] Wendy Robles APRN, CJairNJairPJair Allergy Seasonal (Primary Dx); Alopecia Areata; Depression; Other Stressful Life Events Affecting Family And Household 06/09/2024 8:52 AM CHIEF UNDERWRITER - 06/09/2024 11:59 PM CHIEF UNDERWRITER Hospital Encounter Department of Laboratory Medicine in [address] [address] Lynn Jacobs M.D. Pain In Joint; Leukocytosis Discharge Disposition: Home or Self Care 06/09/2024 Results Follow-Up Department of Family Medicine, [facility], in [place], [place] [address] [place] [address] Lynn Jacobs M.D. Sedimentation Rate, Rheumatoid Factor, [...] = 0.6 oz pur e alcohol) [facility] Utilities Answer Date Recorded In [...] Answer Date Recorded PHQ-2 Score 5 06/19/2024 [facility] - Occupational [...] your living situation today? [facility] 06/28/2023 Education Answer Date Recorded What is the highest level of school you have completed or the highest degree you have received? GED or equivalent Comments No Sex and Gender Information Value Date Recorded Sex Assigned at Female 06/28/2023 7:21 PM CHIEF UNDERWRITER Legal Sex Female 2:56 PM CHIEF UNDERWRITER Gender Identity Female 07/01/2019 7:57 PM CHIEF UNDERWRITER Sexual Orientation Straight 07/01/2019 7: 57 PM CHIEF UNDERWRITER Last Filed Vital Signs Vital Sign Reading Time Taken Comments Blood Pressure 145/100 08/28/2024 8:53 AM CDT Pulse 77 08/28/2024 8:53 AM CDT Temperature 36.9 C (98.4 F) 08/28/2024 8:47 AM CDT Respiratory Rate 16 05/22/2024 1:48 PM CHIEF UNDERWRITER Oxygen Saturation 96% 07/03/2024 11:14 AM CHIEF UNDERWRITER Inhaled Oxygen Concentration - - Weight 79 kg (174 lb 2.6 oz) 08/28/2024 8:47 AM CDT Height 160 cm (5' 2.99) 08/28/2024 8:47 AM CDT Body Mass Index 30.86 08/28/2024 8:47 AM CDT Plan of Treatment Upcoming Encounters Date Type Department Care Team (Latest Contact Info) Description 09/07/2024 3:45 PM CDT Office Visit Department of Otorhinolaryngology in [place], [place] [address] [place] [address] Julieta Brice M.D. [address] [place] [address] 09/22/2024 10:00 AM CDT Appointment Department of Cardiovascular Diseases in [address] [phone] Yanick Cartwright APRN, C.N.P. [address] [address] Discharge Disposition: Home or Self Care 09/22/2024 11:20 AM CDT Appointment Department of Laboratory Medicine in [address] [phone] Yanick Cartwright APRN, C.N.P. [address] [address] 10/06/2024 7:30 AM CDT Clinical Communication Virtual Review in [place], [place] [address] [place] [phone] 10/11/2024 2:50 PM CDT Comprehensive Visit Division of Gastroenterology in [place], [place] [address] [place] [phone] Krishan Jeffrey M.B.BJairS. [address] [place] [address] 12/04/2024 2:00 PM CDT Office Visit Department of Family Medicine, [facility], in [place], [place] [address] [phone] Wendy Robles APRN, C.N.P. [address] [phone] Health Maintenance Due Date Last Done Comments [...] Rhinitis Allergic HOLTER MONITOR - IN CLINIC SCAGLIOLA MECHANIC Routine 07/06/2024 2:29 PM CHIEF UNDERWRITER Tachycardia PUL HOME OVERNIGHT OXIMETRY Routine 07/05/2024 Vasculitis (HCC) Dizziness Dyspnea On Exertion ARTERIAL BLOOD GAS - PULMONARY CLINIC Routine 07/03/2024 12:23 PM CHIEF UNDERWRITER Vasculitis (HCC) Dizziness PULMONARY FUNCTION TESTS Routine 07/03/2024 9:16 AM CHIEF UNDERWRITER Lung Interstitial Disease (HCC) PH, U Routine 07/03/2024 8:48 AM CHIEF UNDERWRITER OSMOLALITY, U Routine 07/03/2024 8:48 AM CHIEF UNDERWRITER DIPSTICK, U Routine 07/03/2024 8:48 AM CHIEF UNDERWRITER MICROSCOPIC AUTOMATED Routine 07/03/2024 8:48 AM CHIEF UNDERWRITER URINALYSIS WITH MICROSCOPIC Routine 07/03/2024 8:48 AM CHIEF UNDERWRITER Lung Interstitial Disease (HCC) C-REACTIVE PROTEIN (CRP), S/P Routine 07/03/2024 8:44 AM CHIEF UNDERWRITER Vasculitis (HCC) SEDIMENTATION RATE, B Routine 07/03/2024 8:44 AM CHIEF UNDERWRITER Vasculitis (HCC) BASIC METABOLIC PANEL, S/P Routine 07/03/2024 8:44 AM CHIEF UNDERWRITER Lung Interstitial Disease (HCC) CBC WITH DIFFERENTIAL, B Routine 07/03/2024 8:44 AM CHIEF UNDERWRITER Lung Interstitial Disease (HCC) CT CHEST WITHOUT IV CONTRAST RAD - Routine (most inpatients and all outpatients) 07/03/2024 8:14 AM CHIEF UNDERWRITER Lung Interstitial Disease (HCC) CBC WITH DIFFERENTIAL, B Routine 06/09/2024 9:04 AM CHIEF UNDERWRITER Leukocytosis HLA-B27, B Routine 06/09/2024 9:04 AM CHIEF UNDERWRITER Pain In Joint CYCLIC CITRULLINATED PEPTIDE ABS, IGG, S Routine 06/09/2024 9:04 AM CHIEF UNDERWRITER Pain In Joint RHEUMATOID FACTOR, S/P Routine 06/09/2024 9:04 AM CHIEF UNDERWRITER Pain In Joint SEDIMENTATION RATE, B Routine 06/09/2024 9:04 AM CHIEF UNDERWRITER Pain In Joint ANTINUCLEAR ABS (PAU), S Routine 06/09/2024 9:04 AM CHIEF UNDERWRITER Pain In Joint LIPID PANEL, S Routine [...] M.D. LAB BLOOD ADD-ON Final Resul t [facility] [address] [place] [address], [place] AUST [facility] [address] [place] [address] * (ABNORMAL) CBC with Differential, Blood (08/28/2024 [...] ADD-ON Final Resul t Performing Organization Address [facility] Co de Phone Number [facility] [address] [place] [address], [facility] FB60 [facility] [place] [address] [place] [address] * Chicken Serum Proteins, IgE (08/04/2024 10:44 AM CDT) Pathologist [facility] Chicken Serum Proteins, IgE <0.10 <0.70 kU/L 08/07/2024 6:28 PM CDT [facility] Comment: Class 0 (Negative <0.10) ----ADDITIONAL INFORMATION---- This test was developed and its performance characteristics determined by [facility] in a manner consistent with CLIA requirements. This test has not been cleared or approved by the U.S. Food and Drug Administration. Blood (Blood, Venous) 08/04/2024 10:44 AM CDT 08/07/2024 2:24 PM CDT Result [facility] Reed Schmid M.D. LAB BLOOD ADD-ON Final Resu lt Performing Organization Address City/[facility] Co de Phone Number [facility] [address] [place] [address] [facility] [address] [place] [address] * Oaklyn Feathers, IgE (08/04/2024 10:44 AM CDT) [place] Feathers, IgE <0.10 <0.70 kU/L 08/07/2024 6:16 PM CDT [facility] Comment:Class 0 (Negative <0 .10) Blood (Blood, Venous) 08/04/2024 10:44 AM CDT 08/07/2024 2:24 PM CDT Reed Schmid M.D. LAB BLOOD ADD-ON Final Resu lt Performing Organization Address [facility] Co de Phone Number [facility] [address] [place] [address] [facility] [address] [place] [address] * Mouse Serum Protein, IgE (08/04/2024 10:44 AM CDT) Mouse Serum Protein, IgE <0.10 <0.70 kU/L 08/07/2024 6:17 PM CDT [facility] Comment:Class 0 (Negative <0 .10) Blood (Blood, Venous) 08/04/2024 10:44 AM CDT 08/07/2024 2:24 PM CDT Reed Schmid M.D. LAB BLOOD ADD-ON Final Resu lt Performing Organization Address [facility] de Phone Number [place] [address] [place] [address] [place] [address] * Chicken Droppings, IgE (08/04/2024 10:44 AM CDT) Chicken Droppings, IgE <0.10 <0.70 kU/L 08/07/2024 6:27 PM CDT [facility] Comment: Class 0 (Negative <0.10) ----ADDITIONAL INFORMATION---- This test was developed and its performance characteristics determined by [facility] in a manner consistent with CLIA requirements. This test has not been cleared or approved by the U.S. Food and Drug Administration. Blood (Blood, Venous) 08/04/2024 10:44 AM CDT 08/07/2024 2:24 PM CDT Reed Schmid M.D. LAB BLOOD ADD-ON Final Resu lt Performing Organization Address [facility] Co de Phone Number [facility] [address] [place] [address] [place] [address] * Mouse Epithelium, IgE (08/04/2024 10:44 AM CDT) Mouse Epithelium, IgE <0.10 <0.70 kU/L 08/07/2024 6:16 PM CDT [facility] Comment:Class 0 (Negative <0 .10) Blood (Blood, Venous) 08/04/2024 10:44 AM CDT 08/07/2024 2:24 PM CDT Reed Schmid M.D. LAB BLOOD ADD-ON Final Resu lt Performing Organization Address City/[facility] Co de Phone Number [facility] [address] [place] [address] [facility] [address] [place] [address] * Chicken Feathers, IgE (08/04/2024 10:44 AM CDT) Pathologist [facility] Chicken Feathers, IgE <0.10 <0.70 kU/L 08/07/2024 6:16 PM CDT [facility] Comment:Class 0 (Negative <0 .10) Blood (Blood, Venous) 08/04/2024 10:44 AM CDT 08/07/2024 2:24 PM CDT Reed Schmid M.D. LAB BLOOD ADD-ON Final Resu lt Performing Organization Address City/[facility]/ZIP Co de Phone Number [facility] [address] [place] [address] [facility] [address] [place] [address] * Mouse Urine Protein, IgE (08/04/2024 10:44 AM CDT) Mouse Urine Protein, IgE <0.10 <0.70 kU/L 08/07/2024 6:17 PM CDT [facility] Comment:Class 0 (Negative <0 .10) Blood (Blood, Venous) 08/04/2024 10:44 AM CDT 08/07/2024 2:24 PM CDT Reed Schmid M.D. LAB BLOOD ADD-ON Final Resu lt Performing Organization Address City/[facility]/ZIP Co de Phone Number [facility] [address] [place] [address] [facility] [address] [place] [address] * Immunoglobulin E (IgE) (08/04/2024 10:44 AM CDT) Immunoglobulin E (IgE), S 76.2 <=214 kU/L 08/07/2024 6:17 PM CDT [facility] Blood (Blood, Venous) 08/04/2024 10:44 AM CDT 08/07/2024 2:24 PM CDT Reed Schmid M.D. LAB BLOOD ADD-ON Final Resu lt Performing Organization Address City/[facility] Co de Phone Number [facility] [address] [place] [address] [facility] [address] [place] [address] * Northern Skin Test (08/04/2024 9:30 AM CDT) Narrative MMODAL - 08/04/2024 9:30 AM CDT Katherine Cha R.N. 08/04/2024 10:55 AM Panel Skin Tests Flowsheet Row Clinical Support from 08/04/2024 in Department of Allergy in [place], [place] Controls Histamine (15 min W/F) 9x9w/f Glycerine (15 min W/F) 0 [place] Basic Adult Panel [place], White: 0 Tacho, White: 0 Birch: 0 [place], Red: 0 [place], Eastern: 0 Shawnee: 0 Dun[place]: 0 [place], Shagbark: 0 Maple: 0 [place], White: 0 [place], Black: 0 [place]: 0 Wirtz, White: 0 [place]: 0 Hyannis, Latvian: 0 [place], Black: 0 Sabine: 0 Bermuda: 7x7f Kentucky Blue: 0 Orchard: 0 Quack: 7x7f Red Halethorpe: 0 Franco: 0 Cocklebur: 0 Kochia: 0 James's Quarters: 0 Steele Elder, Burweed: 0 Mugwort, Common: 0 Nettle: 0 Plantain, Slovak: 0 Rough Pigweed: 0 Tunisian Thistle: 0 Short Ragweed: 0 Dunnellon, Sheep Red: 0 Cat Hair: 0 Cattle [...] M.D. PROCEDURE/MINOR SURGICAL OR DERABLES Final Result [facility] NA * Basic Skin Test (08/04/2024 9:30 AM CDT) Narrative MMODAL - 08/04/2024 9:30 AM CDT Katherine Cha R.N. 08/04/2024 10:55 AM Panel Skin Tests Flowsheet Row Clinical Support from 08/04/2024 in Department of Allergy in [place], [place] Controls Histamine (15 min W/F) 9x9w/f Glycerine (15 min W/F) 0 [place] Basic Adult Panel Adriana, White: 0 Tacho, White: 0 Birch: 0 [place], Red: 0 [place], Eastern: 0 Shawnee: 0 Dunstable: 0 Sab[place], Shagbark: 0 Maple: 0 Evans[place], White: 0 Amagon, Black: 0 [place]: 0 Wirtz, White: 0 False Pass: 0 Hyannis, Latvian: 0 W[place], Black: 0 Sabine: 0 Bermuda: 7x7f Kentucky Blue: 0 Orchard: 0 Quack: 7x7f Red Hal[place]orpe: 0 Franco: 0 Cocklebur: 0 Kochia: 0 James's Quarters: 0 Steele Elder, Burweed: 0 Mugwort, Common: 0 Nettle: 0 Plantain, Slovak: 0 Rough Pigweed: 0 Tunisian Thistle: 0 Short Ragweed: 0 Dunnellon, Sheep Red: 0 Cat Hair: 0 Cattle [...] NA * HOLTER MONITOR - IN CLINIC SCAGLIOLA MECHANIC (07/06/2024 2:29 PM CHIEF UNDERWRITER) Min Heart Rate 58 bpm INFOB IONIC [...] Duration 0 duration INFOBION IC MOME AF [place] 0 percent INFOBIONIC MOME Symptom Count 9 count INFOBI ONIC MOME 07/05/2024 2:31 PM CHIEF UNDERWRITER Narrative INFOBIONIC MOME - 07/07/2024 3:29 PM CHIEF UNDERWRITER 1. The basic rhythm was sinus with [...] to 98 bpm. No ectopy was noted. Laborer Livestock: MARY Lloyd/MARY Zamora Procedure Note [place] [...] 81 to 98 bpm. No ectopy wasnoted. Laborer Livestock: MARY Lloyd/MARY Zamora Babar Jc M.D. CV CARDIAC SERVICES PRO CEDURES Final Result INFOBION[facility] NA * Home Overnight Oximetry (07/05/2024) 07/05/2024 [place]ans ZUHAIR ENNIS - 07/07/2024 4:09 PM CHIEF UNDERWRITER This is an overnight oximetry performed on [...] with the patient is necessary. Please note [place] Sleepiness Scale score of 20 indicative of excessive daytime drowsiness. Physician: Roger Whitten M.D. [id number] Narrative Procedure Note Roger Whitten M.D., Ph.D. [...] with the patient is necessary. Please note [place] Sleepiness Scale score of 20 indicative ofexcessive daytime drowsiness. Physician: Roger Whitten M.D. [id number] us Krishan Triana PFT ORDERABLES Final Resu lt [facility] EA * (ABNORMAL) Arterial Blood Gas - Rest (07/03/2024 12:23 PM CHIEF UNDERWRITER) Sample Site Right Radial Single Stick 07/03/2024 12:44 PM CHIEF UNDERWRITER DTL Patient Position Sit 07/03/19 12:44 PM CHIEF UNDERWRITER DTL Patient Activity Rest 07/03/19 12:44 PM CHIEF UNDERWRITER DTL FIO2 21.00 21%=AIR % 07/03/2024 12:44 PM CHIEF UNDERWRITER DTL pH Arterial 7.46(H) 7.35 - 7.45 07/03/2024 12:44 PM CHIEF UNDERWRITER DTL pCO2 Arterial 36.7 35.0 - 45.0 mm Hg 07/03/2024 12:44 PM CHIEF UNDERWRITER DTL pO2 Arterial 94.6 80.0 - 100.0 mm Hg 07/03/2024 12:44 PM CHIEF UNDERWRITER DTL Total Hemoglobin 12.8 11.6 - 15.0 g/dL 07/03/2024 12:44 PM CHIEF UNDERWRITER DTL O2 Saturation 93.3(L) 94.0 - 98.0 % 07/03/2024 12:44 PM CHIEF UNDERWRITER DTL Carboxyhemoglobin 3.9(H) 0.0 - 1.9 % 07/03/2024 12:44 PM CHIEF UNDERWRITER DTL Methemoglobin 1.0(H) 0.0 - 0.9 % 07/03/2024 12:44 PM CHIEF UNDERWRITER DTL Bicarbonate Conc 25.9 22.0 - 26.0 mmol/L 07/03/2024 12:44 PM CHIEF UNDERWRITER DTL Base Excess 2.0 0.0 - 2.0 mmol/L 07/03/2024 12:44 PM CHIEF UNDERWRITER DTL Maddox 0.00 07/03/2024 12:44 PM CHIEF UNDERWRITER DTL Activity Time 10.0 min 07/03/2024 12:44 PM CHIEF UNDERWRITER DTL Subcutaneous Lidocaine 0.0 mL 07/03/2024 12:44 PM CHIEF UNDERWRITER DTL O2 Devices N/A 07/03/2024 12:44 PM CHIEF UNDERWRITER DTL Blood (Blood, Arterial) 07/03/2024 12:23 PM CHIEF UNDERWRITER 07/03/2024 12:43 PM CHIEF UNDERWRITER Krishan Triana LAB BLOOD ADD-ON Final Res ult [facility] [address] [place] [address], [facility] [address] [place] [address] * Pulmonary Function Tests (07/03/2024 9:16 AM CHIEF UNDERWRITER) Pathologist [facility] FVC 3.08 L 07/03/2024 11:23 AM CHIEF UNDERWRITER [facility] FEV1 2.58 L 07/03/2024 11:23 AM CHIEF UNDERWRITER [facility] FEV1/FVC 83.68 % 07/03/2024 11:23 AM CHIEF UNDERWRITER [facility] ONO09-03% 3.10 L/s 07/03/2024 11:23 AM CHIEF UNDERWRITER [facility] PEF PRE 7.22 L/s 07/03/2024 11:23 AM CHIEF UNDERWRITER [facility] PIF PRE 5.59 L/s 07/03/2024 11:23 AM CHIEF UNDERWRITER [facility] Pre FEF50/FIF50 72.31 % 11:23 AM CHIEF UNDERWRITER [facility] FET PRE 11.86 sec 07/03/2024 11:23 AM CHIEF UNDERWRITER [facility] DLCO 20.11 ml/(min*mm Hg) 07/03/2024 11:23 AM CHIEF UNDERWRITER [facility] DLCOc 19.99 ml/(min*mm Hg) 07/03/2024 11:23 AM CHIEF UNDERWRITER [facility] HB 13.60 g(Hb)/dL 07/03/2024 11:23 AM CHIEF UNDERWRITER [facility] Pre % Pred VA SINGLE BREATH 3.92 L 07/03/2024 11:23 AM CHIEF UNDERWRITER [facility] 07/03/2024 9:16 AM CHIEF UNDERWRITER Impressions [facility] - 07/03/2024 11:23 AM CHIEF UNDERWRITER Within normal limits. Since 11/22/2023 there has been no significant change. Narrative Procedure Note Roger Whitten M.D., Ph.D. - 07/03/2024 IMPRESSION: Within normal limits. Since 11/22/2023 there has been no significantchange. us Krishan Triana PFT ORDERABLES Final Resu lt [facility] NA * (ABNORMAL) Dipstick, Urine (07/03/2024 8:48 AM CHIEF UNDERWRITER) Hemoglobin, QL, U Moderate(A) Negative 07/03/2024 9:57 AM CHIEF UNDERWRITER DTL Leukocyte Esterase, U Negative Negative 07/03/2024 9:57 AM CHIEF UNDERWRITER DTL Nitrite, U Negative Negative 07/03/2024 9:57 AM CHIEF UNDERWRITER DTL Ketone, U Negative Negative mg/dL 07/03/2024 9:57 AM CHIEF UNDERWRITER DTL Glucose, U Negative Negative mg/dL 07/03/2024 9:57 AM CHIEF UNDERWRITER DTL Urine 07/03/2024 8:48 AM CHIEF UNDERWRITER 07/03/2024 9:18 AM CHIEF UNDERWRITER Krishan Shankar.B.S. LAB URINE ORDERABLES Final Result Performing Organization Address City/[facility]/ZIP Co de Phone Number [facility] [address] [facility] [address] [place] [address] * (ABNORMAL) Microscopic Automated (07/03/2024 8:48 AM CHIEF UNDERWRITER) Microscopy Abnormal 07/03/2024 9:57 AM CHIEF UNDERWRITER DTL RBC 3-10(A) <3 /hpf 07/03/2024 9:57 AM CHIEF UNDERWRITER DTL Dysmorphic RBC <25 <25 % 07/03/2024 9:57 AM CHIEF UNDERWRITER DTL WBC 1-3 /hpf 07/03/2024 9:57 AM CHIEF UNDERWRITER DTL Comment: ----REFERENCE VALUE---- <4 (Males) <11 (Females) Squamous Epithelial Cells, U 1-3 /hpf 07/03/2024 9:57 AM CHIEF UNDERWRITER DTL Urine 07/03/2024 8:48 AM CHIEF UNDERWRITER 07/03/2024 9:18 AM CHIEF UNDERWRITER [employer] Wojciech PorrasB.B.S. LAB URINE ORDERABLES Final Result Performing Organization Address City/[facility]/ZIP Co de Phone Number [facility] [address] [place] [address], [facility] [address] [place] [address] * pH, Urine (07/03/2024 8:48 AM CHIEF UNDERWRITER) pH, U 5.5 4.5 - 8.0 07/03/2024 10: 23 AM CHIEF UNDERWRITER DTL Urine 07/03/2024 8:48 AM CHIEF UNDERWRITER 07/03/2024 9:18 AM CHIEF UNDERWRITER Krishan Her.B.B.S. LAB URINE ORDERABLES Final Result Performing Organization Address City/[facility]/ZIP Co de Phone Number [facility] [address] [place] [address], [facility] [address] [place] [address] * Osmolality, Urine (07/03/2024 8:48 AM CHIEF UNDERWRITER) Osmolality, U 936 150 - 1150 mOsm/kg 07/03/2024 10:23 AM CHIEF UNDERWRITER DTL Urine 07/03/2024 8:48 AM CHIEF UNDERWRITER 07/03/2024 9:18 AM CHIEF UNDERWRITER Krishan Wojciech Her.B.B.S. LAB URINE ORDERABLES Final Result Performing Organization Address [facility] Co de Phone Number [facility] [address] [place] [address], [facility] [address] [place] [address] * Urinalysis, with Microscopic: Urine, Midstream (07/03/2024 8:48 AM CHIEF UNDERWRITER) Source Urine, Urine, Midstream 07/03/2024 9:17 AM CHIEF UNDERWRITER DTL Color, U Yellow 07/03/2024 9:18 AM CHIEF UNDERWRITER DTL Clarity, U Clear 07/03/2024 9:18 AM CHIEF UNDERWRITER DTL Protein, U 11 <26 mg/dL 07/03/2024 10:05 AM CHIEF UNDERWRITER DTL Protein/Osmol ality 0.12 <0.42 ratio 07/03/2024 10:23 AM CHIEF UNDERWRITER DTL Predicted 24 HR Protein, U 96 <229 mg/24 h 07/03/2024 10:23 AM CHIEF UNDERWRITER DTL Predicted Range 24-388 mg/24 h 07/03/2024 10:23 AM CHIEF UNDERWRITER DTL Urine (Urine, Midstream) 07/03/2024 8:48 AM CHIEF UNDERWRITER 07/03/2024 9:17 AM CHIEF UNDERWRITER Krishan JuarezB.SJair LAB URINE ORDERABLES Final Result Performing Organization Address [facility]/ZIP Co de Phone Number [facility] [address] [place] [address] * (ABNORMAL) CRP (C-Reactive Protein) (07/03/2024 8:44 AM CHIEF UNDERWRITER) C-Reactive Protein (CRP), S 9.5(H) <5.0 mg/L 07/03/2024 9:26 AM CHIEF UNDERWRITER DTL Blood (Blood, Venous) 07/03/2024 8:44 AM CHIEF UNDERWRITER 07/03/2024 9:10 AM CHIEF UNDERWRITER Krishan JuarezB.S. LAB BLOOD ADD-ON Final Res ult Performing Organization Address City/[facility]/ZIP Co de Phone Number [facility] [address] [place] [address], [facility] [address] [place] [address] * Basic Metabolic Panel (07/03/2024 8:44 AM CHIEF UNDERWRITER) Potassium, S 4.6 3.6 - 5.2 mmol/L 07/03/2024 9:26 AM CHIEF UNDERWRITER DTL Sodium, S 139 135 - 145 mmol/L 07/03/2024 9:26 AM CHIEF UNDERWRITER DTL Chloride, S 103 98 - 107 mmol/L 07/03/2024 9:26 AM CHIEF UNDERWRITER DTL Bicarbonate, S 26 22 - 29 mmol/L 07/03/2024 9:26 AM CHIEF UNDERWRITER DTL Anion Gap 10 7 - 15 07/03/2024 9:26 AM CHIEF UNDERWRITER DTL BUN (Blood Urea Nitrogen), S 17 6 - 21 mg/dL 07/03/2024 9:26 AM CHIEF UNDERWRITER DTL Creatinine 0.67 0.59 - 1.04 mg/dL 07/03/2024 9:26 AM CHIEF UNDERWRITER DTL Estimated GFR (eGFR) >90 >=60 mL/min/BSA 07/03/2024 9:26 AM CHIEF UNDERWRITER DTL Comment: Estimated GFR calculated using the 2020 CKD_EPI creatinine equation. Calcium, Total, S 9.6 8.6 - 10.0 mg/dL 07/03/2024 9:26 AM CHIEF UNDERWRITER DTL Glucose, S 116 70 - 140 mg/dL 07/03/2024 9:26 AM CHIEF UNDERWRITER DTL Blood (Blood, Venous) 07/03/2024 8:44 AM CHIEF UNDERWRITER 07/03/2024 9:10 AM CHIEF UNDERWRITER us Krishan Triana LAB BLOOD ADD-ON Final Res ult [facility] [address] [place] [address], [facility] DTL [facility] [address] [place] [address] * CT Chest without IV Contrast (07/03/2024 8:14 AM CHIEF UNDERWRITER) Anatomical Region Laterality Modality Chest, Thoracic RST LOS, Tho racic ARZ LOS, Thoracic FLA LOS N/A Computed Tomography, Compute d Tomography Impressions 07/03/2024 8:34 AM CHIEF UNDERWRITER 1. No significant change since 04/14/2024. Similar clustered nodules in the right middle lobe, and small lung nodules elsewhere. 2. Diffuse air trapping, consistent with small airways disease. 3. Hepatic steatosis. Narrative 07/03/2024 8:34 AM CHIEF UNDERWRITER EXAM: CT CHEST WITHOUT IV CONTRAST COMPARISON: [...] B27 Associated Antigen Screening (06/09/2024 9:04 AM CHIEF UNDERWRITER) HLA-B27 Result Negative Not Applicable 06/11/2024 8:39 AM CHIEF UNDERWRITER DBB8 Comment: A portion of the testing process was performed at [facility] [employer] site [id number] HLA-B27 Interpretation see below 06/11/2024 8:39 AM CHIEF UNDERWRITER DBB8 Comment: HLA-B27 antigen was not detected. ----ADDITIONAL INFORMATION---- Method: Flow Cytometry CLIA: [id number] CLIA Maintenance Worker Municipal: [place],Ph.D. Blood (Blood, Venous) 06/09/2024 9:04 AM CHIEF UNDERWRITER 06/10/2024 8:04 AM CHIEF UNDERWRITER us Lynn Jacobs M.D. LAB BLOOD NON ADD-ON Final R esult [facility] [address] [place] [address], [facility] DBB8 [facility] [address] [place] [address] * Cyclic Citrullinated Peptide Antibodies, IgG (06/09/2024 9:04 AM CHIEF UNDERWRITER) Pathologist [facility] Cyclic Citrullinated Peptide Ab, S <15.6 <20.0 (Negative) U 06/10/2024 12:30 PM CHIEF UNDERWRITER [facility] Comment: Interpretation: Antibodies to CCP not detected. If clinical symptoms are strongly indicative for rheumatoid arthritis, suggest testing for Rheumatoid Factor, S (RHUT) and, if positive, Rheumatoid Factor Panel, S (RFPN), which includes differentiation of rheumatoid factor IgM and IgA isotypes. Blood (Blood, Venous) 06/09/2024 9:04 AM CHIEF UNDERWRITER 06/10/2024 7:13 AM CHIEF UNDERWRITER us Lynn Jacobs M.D. LAB BLOOD ADD-ON Final Resul t Performing Organization Address City/[facility]/ZIP Co de Phone Number [facility] [address] [place] [address] [facility] [address] [place] [address] * Rheumatoid Factor (06/09/2024 9:04 AM CHIEF UNDERWRITER) Pathologist [facility] Rheumatoid Factor, S <10 <15 IU/mL 06/09/2024 3:59 PM CHIEF UNDERWRITER AUST Blood (Blood, Venous) 06/09/2024 9:04 AM CHIEF UNDERWRITER 06/09/2024 3:27 PM CHIEF UNDERWRITER us Lynn Jacobs M.D. LAB BLOOD ADD-ON Final Resul t [facility] [address] [place] [address], [place] AUST [facility] [address] [place] [address] * PAU (Antinuclear Antibodies) (06/09/2024 9:04 AM CHIEF UNDERWRITER) Antinuclear Ab, S 0.4 <=1.0 (Negative) U 06/10/2024 2:21 PM CHIEF UNDERWRITER [facility] Comment: ----ADDITIONAL INFORMATION---- Method: Enzyme-linked immunoassay using HEp-2 nuclear extract supplemented with purified antigens. Blood (Blood, Venous) 06/09/2024 9:04 AM CHIEF UNDERWRITER 06/10/2024 7:14 AM CHIEF UNDERWRITER us Lynn Jacobs M.D. LAB BLOOD ADD-ON Final Resul t [facility] [address] [place] [address] [facility] [address] [place] [address] * (ABNORMAL) Lipid Panel (09/16/2015 11:30 AM CDT) Pathologist [facility] Calculated LDL 104 <=129 MGDL POWERCHART Comment: [...] for FH and FDB is available through [place] [employer]: FH/ADH Genetic Reflex Panel (test ADHP). Acquired (non-genetic) causes of markedly increased LDL cholesterol include cholestatic liver disease due to the presence of LpX. If a genetic form of hypercholesterolemia is suspected, family studies including biochemical testing for lipids (total cholesterol,triglycerides, LDL cholesterol and HDL cholesterol) are recommended. Please contact the laboratory at or the on-line test catalog at [employer] for information about how to order these [...] to Health Maintenance Insurance MEDICARE Care Teams Assistant Office Manager Relationship Specialty Start Date End Date Lynn Jacobs M.D. [address] [place] [address] Marimar SingletaryShenandoahGEORGE pratt [phone] PCP - General Family Medicine 04/03/24
--- OUTSIDE RECORDS SUMMARY | 2024-08-29 05:27 | XMS_ITS | Encounter Summary ---
Author Organization [facility] Address [address] [place] [address] Care Team Providers Care Packager Hand Name Role Phone Lynn Jacobs M.D. Primary Care Provider [phone] Encounter Details Date Type Department Care Team (Latest Contact Info) Description 08/28/2024 9:45 AM CDT - 08/28/2024 11:59 PM CDT Hospital Encounter Department of Laboratory Medicine in [place], [place] [address] [place] [address] Lynn Jacobs M.D. [address] [place] [address] Headache Unspecified Discharge Disposition: Home or Self Care Social History Tobacco Use Types Packs/Day Years Used Date Smoking Tobacco: Never Smokeless Tobacco: Never Alcohol Use Standard Drinks/Week Comments No 0 (1 standard drink = 0.6 oz pur e alcohol) [facility] Utilities Answer Date Recorded In the past 12 months has [employer], oil, or water [employer] threatened to shut off services in your [...] How often do you attend chur or muslim services? 1 to 4 times [...] Sex Assigned at Female 06/28/2023 7:21 PM INSEAM TRIMMER Legal Sex Female 2:56 PM INSEAM TRIMMER Gender Identity Female 07/01/2019 7:57 PM INSEAM TRIMMER Sexual Orientation Straight 07/01/2019 7: 57 PM INSEAM TRIMMER documented as of this encounter Medications at [...] CDT Office Visit Department of Otorhinolaryngology in [place], [place] [address] [place] [phone] Julieta Brice M.D. [address] [place] [address] 09/22/2024 10:00 AM CDT Appointment Department of Cardiovascular Diseases in [place], [place] [address] [place] [address] Yanick Cartwright, FELT CEMENTER, C.N.P. [address] [place] [address] Discharge Disposition: Home or Self Care 09/22/2024 11:20 AM CDT Appointment Department of Laboratory Medicine in [place], [place] [address] [place] [phone] Yanick Cartwright APRN, C.N.P. [address] [address] 10/06/2024 7:30 AM CDT Clinical Communication Virtual Review in [place], [place] [address] [place] [address] 10/11/2024 2:50 PM CDT Comprehensive Visit Division of Gastroenterology in [place], [place] [address] [place] [phone] Krishan Jeffrey M.B.B.S. [address] [place] [phone] 12/04/2024 2:00 PM CDT Office Visit Department of Family Medicine, [facility], in [place], [place] [address] [place] [phone] Wendy Robles APRN, C.N.P. [address] [phone] documented as of this encounter Procedures Procedure [...] M.D. LAB BLOOD ADD-ON Final Resul t [facility] [address] [place] [address], [facility] FB60 [facility] [place] [address] [place] [address] * Sedimentation Rate (08/28/2024 10:03 AM CDT) [facility] Sedimentation Rate, B 14 0 - 29 mm/1 h 08/28/2024 3:26 PM CDT AUST Blood (Blood, Venous) 08/28/2024 10:03 AM CDT 08/28/2024 2:52 PM CDT Lynn Jacobs M.D. LAB BLOOD ADD-ON Final Resul t [facility] [address] [place] [address], [facility] AUST [facility] [address] [place] [address] documented in this encounter Visit Diagnoses Diagnosis Headache Unspecified documented in this encounter Additional Health Concerns Assessment Noted Time PHQ-9 Depression Total Score: 10 025 11:16 AM INSEAM TRIMMER documented as of this encounter Care Teams Packager Hand Relationship Specialty Start Date End Date Lynn Jacobs M.D. [address] [place] [phone] PCP - General Family Medicine 04/03/24 documented as of this encounter
[2024-08-29] MEDS: LORazepam 2 MG/ML inj 0.5 MG IVP (05:41)
[2024-08-29] MEDS: LIDOCAINE 5% PATCH 1 PATCH TRANSDERMA (05:42)
[2024-08-29] MEDS: dexAMETHasone 4 MG/ML VIAL 10 MG IVP (05:42)
[2024-08-29 06:51] VITALS: BP 155/116; PULSE 101; RESP 16; O2SAT 93
[2024-08-29 06:58] VITALS: O2SAT 94
== END 2024-08-29 08:10 | disposition home or self-care (01) ==
PROVIDERS: Emergency Provider Family Medicine; PCP Family Medicine
DX: R51.9 Headache, unspecified (principal); M79.10 Myalgia, unspecified site; M53.3 Sacrococcygeal disorders, not elsewhere classified
CPT/HCPCS: 94761; 96361; 96374; 96375; 99284; A9270; J1100; J1885; J2060; J7030